=== PATIENT | female | born 1970 | race Caucasian/White ===

== ENCOUNTER 2022-12-01 11:30 | Outpatient (OUT) | payer OTHER, SELFPAY ==
--- NOTE | 2022-12-01 | XR_ITS ---
The [address] [address] Patient Name: HENRRY MELÉNDEZ MRN: [id number] date: 1970 Sex: F Assigned Patient Location: [facility] Current Patient Location: [facility] Accession/Order Number: [id number] Exam Date: 12/01/2022 11:08 Report Date: 12/01/2022 15:25 At the request of: CHEKO GUNTER Procedure: XR foot LT min 3V EXAM: XR foot LT min 3V HISTORY: Left foot pain COMPARISON: None. TECHNIQUE: 3 views FINDINGS: No radiodense foreign body osseous lesion, fracture, dislocation or subluxation. Age-related changes of the first metatarsophalangeal joint. The remainder of the joint spaces are unremarkable. No visualized effusion. No visualized soft tissue edema. XR/XR foot LT min 3V IMPRESSION: No visualized abnormality Electronically authenticated by: JUAN CARLOS RAO Date: 12/01/2022 15:25
== END 2022-12-01 11:31 | disposition home or self-care (01) ==
LOC: RAD 11:30
PROVIDERS: PCP Family Medicine; Visit Provider Physician Assistant
DX: M79.672 Pain in left foot (principal)
CPT/HCPCS: 73630

== ENCOUNTER 2023-04-20 12:14 | Outpatient (OUT) | payer OTHER, SELFPAY ==
--- NOTE | 2023-04-20 12:27 | US_ITS ---
The [place] [id number] Patient Name: HENRRY MELÉNDEZ MRN: [id number] date: 1970 Sex: F Assigned Patient Location: [place] Current Patient Location: [place] Accession/Order Number: [id number] Exam Date: 04/20/2023 12:30 Report Date: 04/20/2023 14:00 At the request of: CARRIE TALBOT Procedure: US venous doppler LE LT EXAMINATION: US venous doppler LE LT HISTORY: m79.605; pain in left leg COMPARISON: No relevant comparison available. FINDINGS: REGION: Left lower extremity THROMBI: None. COMPRESSIBILITY: Normal compressibility. FLOW: Normal waveform and antegrade flow between 5 and 20 cm/s. OTHER: None. US/US venous doppler LE LT IMPRESSION: 1. No deep vein thrombus within the left lower extremity. Electronically authenticated by: VLADIMIR BRAND Date: 04/20/2023 14:00
--- NOTE | 2023-04-20 12:56 | XR_ITS ---
[address] [address] Patient Name: HENRRY MELÉNDEZ MRN: [facility]:[id number] date: 1970 Sex: F Assigned Patient Location: Current Patient Location: Accession/Order Number: [id number] Exam Date: 04/20/2023 12:50 Report Date: 04/21/2023 11:28 At the request of: CARRIE TALBOT Procedure: XR lumbar spine 2-3V EXAM: XR lumbar spine 2-3V HISTORY: Low back pain COMPARISON: None. TECHNIQUE: 3 views FINDINGS: Satisfactory alignment. Maintained vertebral body heights and disc spaces. Facet arthropathy of L4-S1. No acute fracture. XR/XR lumbar spine 2-3V IMPRESSION: Facet arthropathy as above. Electronically authenticated by: DELTA DE LEON Date: 04/21/2023 11:28
== END 2023-04-20 12:15 | disposition home or self-care (01) ==
LOC: US 12:16
PROVIDERS: PCP Family Medicine; Visit Provider Family Medicine
DX: M54.10 Radiculopathy, site unspecified (principal); M79.605 Pain in left leg
CPT/HCPCS: 72100; 93971

== ENCOUNTER 2023-04-26 09:50 | Outpatient (OUT) | payer OTHER, SELFPAY ==
[2023-04-26 10:25] LABS: Basophils Percent Auto 0.5 % (0.2-2.0); Eosinophils Absolute Auto 0.1 10^3/uL (0.0-0.7); Eosinophils Percent Auto 1.6 % (0.9-7.0); Hematocrit 43.3 % (36.0-48.0); Hemoglobin 14.2 g/dL (12.0-16.0); Immature Granulocytes Abs Auto 0.02 10^3/uL (0.00-0.03); Immature Granulocytes Pct Auto 0.3 % (0.0-0.5); Lymphocytes Absolute Auto 2.3 10^3/uL (1.2-3.8); Mean Corpuscular HGB Conc 32.8 g/dL (29.9-35.2); Mean Corpuscular Hemoglobin 29.6 pg (26.7-34.0); Mean Corpuscular Volume 90.4 fL (81.0-99.0); Mean Platelet Volume 9.3 fL (9.5-13.5); Monocytes Absolute Auto 0.5 10^3/uL (0.3-0.8); Monocytes Percent Auto 6.4 % (1.7-12.0); Neutrophils Absolute Auto 4.6 10^3/uL (1.4-6.5); Neutrophils Percent Auto 61.2 % (43.0-75.0); Platelet Count 282 10^3/uL (150-450); Red Blood Count 4.79 10^6/uL (4.20-5.40); Red Cell Distribution Width 13.9 % (11.0-15.0); White Blood Count 7.5 10^3/uL (4.0-11.0)
[2023-04-26 10:59] LABS: Anion Gap 11.6; BUN Creatinine Ratio 16.3; Calcium 8.8 mg/dL (8.5-10.1); Carbon Dioxide 27.6 mmol/L (21.0-32.0); Chloride 104 mmol/L (98-107); Estimated GFR (African America >60 (>=60); Estimated GFR (Non-African Ame >60 (>=60); Glucose 91 mg/dL (74-106); Potassium 4.2 mmol/L (3.5-5.1); Sodium 139 mmol/L (136-145); Thyroid Stimulating Hormone 1.503 uIU/mL (0.358-3.740)
== END 2023-04-26 09:51 | disposition home or self-care (01) ==
LOC: LAB 09:50
PROVIDERS: PCP Family Medicine; Visit Provider Family Medicine
DX: I10 Essential (primary) hypertension (principal)
CPT/HCPCS: 36415; 80048; 84443; 85025

== ENCOUNTER 2023-08-11 17:06 | Emergency (ER) | payer OTHER, SELFPAY ==
[2023-08-11 17:13] VITALS: BP 148/88; PULSE 84; RESP 16; TEMP 36.7; O2SAT 97; BMI 42.0
--- OUTSIDE RECORDS SUMMARY | 2023-08-11 17:14 | XMS_ITS | CCD ---
Author Organization [facility] Care Team Providers Care Focused Factory Manager Name Role Phone SHAUNA, DR JUAN CARLOS Mayberry Consulting Unavailable TALBOT, DR SLIME Johnson Primary Care Unavailable TALBOT, DR SLIME Johnson Attending Unavailable TALBOT, DR SLIME Johnson Admitting Unavailable ZIEBER, DR SARKIS Stevens Consulting Unavailable TALBOT, DR SLIME Johnson Consulting Unavailable HORTENCIA, MG Consulting Unavailable HORTENCIA, MG Attending Unavailable HORTENCIA, MG Admitting Unavailable TALBOT, DR SLIME Johnson Primary Care Unavailable TALBOT, DR SLIME Johnson Primary Care Unavailable JANI, CHEKO Attending Unavailable JANI, CHEKO Admitting Unavailable TALBOT, DR SLIME Johnson Primary Care Unavailable TALBOT, DR SLIME Johnson Attending Unavailable TALBOT, DR SLIME Johnson Admitting Unavailable TALBOT, DR SLIME Johnson Primary Care Unavailable JANI, CHEKO Attending Unavailable JANI, CHEKO Admitting Unavailable TALBOT, DR SLIME Johnson Primary Care Unavailable TALBOT, DR SLIME Johnson Attending Unavailable TALBOT, DR SLIME Johnson Admitting Unavailable TALBOT, DR SLIME Johnson Primary Care Unavailable WEST, DR JUAN CARLOS Mayberry Attending Unavailable WEST, DR JUAN CARLOS Mayberry Admtariq Unavailable WEST, DR JUAN CARLOS Mayberry Consulting Unavailable TALBOT, DR SLIME Johnson Primary Care Unavailable WEST, DR JUAN CARLOS Mayberry Attending Unavailable WEST, DR JUAN CARLOS Mayberry Admtariq Unavailable WEST, DR JUAN CARLOS Mayberry Consulting Unavailable TALBOT, DR SLIME Johnson Primary Care Unavailable WEST, DR JUAN CARLOS Mayberry Attending Unavailable WEST, DR JUAN CARLOS Mayberry Admitting Unavailable ZIEBER, DR SARKIS Stevens Consulting Unavailable TALBOT, DR SLIME Johnson Consulting Unavailable TALBOT, DR SLIME Johnson Primary Care Unavailable TALBOT, DR SLIME Johnson Attending Unavailable TALBOT, DR SLIME Johnson Admitting Unavailable ZIEBER, DR SARKIS Stevens Consulting Unavailable TALBOT, DR SLIME Johnson Primary Care Unavailable JANI, CHEKO Attending Unavailable JANI, CHEKO Admitting Unavailable JANI, CHEKO Consulting Unavailable WEST, DR JUAN CARLOS Mayberry Consulting Unavailable TALBOT, DR SLIME Johnson Primary Care Unavailable TALBOT, DR SLIME Johnson Attending Unavailable TALBOT, DR SLIME Johnson Admitting Unavailable ANTIONE, DR SLIME Johnson Consulting Unavailable DIAB, ELY Consulting Unavailable DIAB, ELY Attending Unavailable DIAB, ELY Admitting Unavailable ANTIONE, DR SLIME Johnson Primary Care Unavailable HAY, DR GERONIMO Consulting Unavailable HAY, DR GERONIMO Attending Unavailable HAY, DR GERONIMO Admitting Unavailable ANTIONE, DR SLIME Johnson Primary Care Unavailable POPPY GREEN Consulting Unavailable Slime Talbot Unavailable Slime Talbot Unavailable Unavailable Unavailable Mitch, Dr. Bethea Referring Unavaila kendrick Meyer, Dr. Bethea Attending Unavaila kendrick TALBOT, MD SLIME LOWERY Primary Care MD SLIME Galicia Primary Care Unava illaci Meyer, Dr. Bethea Referring Unavaila kendrick Meyer, Dr. Bethea Attending Unavaila ZOLTAN Blum Attending Unavailable ZOLTAN HENDERSON Referring Unavailable Slime Talbot Attending Unavailable Slime Talbot Admitting Unavailable Allergies Allergy Classification Reported Allergen(s) Allergy Type Date of Onset Reaction(s) Facility (5 sources) Cefuroxime Drug Allergy Unknown [facility] Other (12 sources) Codeine Drug Allergy 05-31-19 Unknown [facility] (5 sources) Pseudoephedrine Drug Allergy Unknown [facility] Other (1 source) cefdinir; Translations: [cefdinir] Drug Allergy Other [place] [id number] DO Work Phone: (6 sources) Ceftin *CEPHALOSPORINS* Propensity to adverse reactions 02-12-[address] [facility] Other (6 sources) Pseudoephedrine HCl *NASAL AGENTS - SYSTEMIC AND T Propensity to adverse reactions 02-12-[address] [facility] Other (1 source) Cephalosporins (Antibiotic) Allergy to substance 05-31-19 [facility] (1 source) Pseudoephedrine HCl *NASAL AGE Allergy to substance 05-31-19 [facility] Medications Current Medications Medication Drug Class(es) Dates Sig (Normalized) Sig (Original) amoxicillin 875 mg / clavulanate 125 mg oral tablet (5 sources) Penicillin-class Antibacterial take 1 tablet by mouth every twelve hours aspirin 81 mg delayed release oral tablet (7 sources) Platelet Aggregation Inhibitor, Nonsteroidal Anti-inflammatory Drug take 1 tablet by mouth every twenty-four hours Aspirin 81 81 MG 1 tablet Orally Once a day Active take 1 tablet by mouth once jessi y Aspirin 81 81 MG 1 tablet Orally Once a day Active azithromycin 250 mg oral tablet (6 sources) Macrolide Antimicrobial Start: 03-28-2023 Azithromycin 250 MG as directed Orally 2 tabs po today, then 1 tab daily x 4 more days for 5 Mar, Active Start: 06-17-2022 Azithromycin 2 50 MG as directed Orally 2 tabs po today, then 1 tab daily x 4 more days for 5 days May, Active ferrous sulfate 325 mg oral tablet (5 sources) take 1 tablet by mouth every twenty-four hours meclizine hydrochloride 12.5 mg oral tablet (5 sources) Antiemetic take 1 tablet by mouth every twelve hours methylPREDNISolone 4 mg oral tablet (10 sources) Corticosteroid Start: 2022 omeprazole 40 mg delayed release oral capsule (6 sources) Proton Pump Inhibitor take 1 capsule by mouth once daily Omeprazole 40 MG 1 capsule 30 minutes before morning meal Orally Once a day for 30 days Active prednisoLONE (1 source) Corticosteroid prednisoLONE Active predniSONE 20 mg oral tablet (2 sources) Start: 2022 take 2 tablets by mouth every twenty-four hours predniSONE 20 MG 2 tablets Orally Once a day for 5 days Feb, Active tiZANidine 4 mg oral capsule (2 sources) Central alpha-2 Adrenergic Agonist take 1 capsule by mouth once daily at bedtime as needed tiZANidine HCl 4 MG 1 capsule as needed Orally qhs prn for 15 days Active Completed/Discontinued Medications Medication Drug Class(es) Dates Sig (Normalized) Sig (Original) amLODIPine 10 mg oral tablet (9 sources) Dihydropyridine Calcium Channel Taryn Start: 06-17-2022 take 1 tablet by mouth once daily amLODIPine Besylate 10 MG Oral Tablet TAKE ONE TABLET BY MOUTH ONCE DAILY Quantity: 30 Refills: 0 Ordered: 18-Jul-2022 DO Start : 17-Jun-2022 Active losartan potassium 50 mg oral tablet (13 sources) Angiotensin 2 Receptor Taryn Start: 06-17-2022 take 1 tablet by mouth once daily Losartan Potassium 50 MG Oral Tablet TAKE ONE TABLET BY MOUTH ONCE DAILY Quantity: 30 Refills: 0 Ordered: 18-Jul-2022 DO Start : 17-Jun-2022 Active 24 hr metoprolol succinate 25 mg extended release oral tablet (8 sources) beta-Adrenergic Taryn Start: 08-11-2022 take 1 tablet by mouth once daily Metoprolol Succinate ER 25 MG Oral Tablet Extended Release 24 Hour TAKE 1 TABLET ONCE DAILY. Quantity: 90 Refills: 3 Ordered: 11-Aug-2022 [place] Meyer MD Start : 11-Aug-2022 Active new start spironolactone 25 mg oral tablet (13 sources) Aldosterone Antagonist Start: 05-14-2022 take 1 tablet by mouth once daily Spironolactone 25 MG Oral Tablet TAKE ONE TABLET BY MOUTH DAILY Quantity: 90 Refills: 0 Ordered: 17-May-2022 DO Start : 14-May-2022 Active Problems Active Problems Problem Classification Problem Date Documented Da te Episodic/Chronic Abdominal pain (11 sources) Pain in female pelvis; Translations: [Pelvic and perineal pain] Episodic Cardiac dysrhythmias (3 sources) Palpitations; Translations: [Palpitations] Onset: 3 Episodic Conditions associated with dizziness or vertigo (11 sources) Benign paroxysmal positional vertigo; Translations: [Benign paroxysmal vertigo, bilateral] Episodic Coronary atherosclerosis and other heart disease (11 sources) Coronary arteriosclerosis; Translations: [Atherosclerotic heart disease of elem coronary artery without angina pectoris] Chronic Diabetes mellitus without complication (12 sources) Other abnormal glucose; Translations: [Hyperglycemia] Onset: 2 Episodic Esophageal disorders (7 sources) Gastroesophageal reflux disease without esophagitis; Translations: [Gastro-esophageal reflux disease without esophagitis] Chronic Essential hypertension (20 sources) Essential (primary) hypertension; Translations: [Hypertensive disorder] Onset: 3 Chronic Genitourinary symptoms and ill-defined conditions (2 sources) Dysuria; Translations: [Dysuria] Episodic Osteoarthritis (1 source) Primary osteoarthritis, left ankle and foot; Translations: [PRIMARY OSTEOARTHRITIS LT ANK FOOT] Onset: 2 Chronic Other aftercare (1 source) Other continuous churn buttermaker (current) drug therapy; Translations: [OTH CLINICAL RESEARCH ASSISTANT CURRENT DRUG THERAPY] Onset: 3 Episodic Other connective tissue disease (1 source) Peroneal tendinitis, left leg; Translations: [PERONEAL TENDINITIS LEFT LEG] Onset: 3 Episodic Other connective tissue disease (1 source) Pain in left foot; Translations: [PAIN IN LEFT FOOT] Onset: 2 Episodic Other connective tissue disease (11 sources) Pain in left foot; Translations: [Pain in left foot] Episodic Other connective tissue disease (11 sources) Peroneal tendinitis; Translations: [Peroneal tendinitis, left leg] Episodic Other connective tissue disease (11 sources) Pain of left lower leg; Translations: [Pain in left lower leg] Episodic Other connective tissue disease (6 sources) Dupuytren contracture of right palm; Translations: [Palmar fascial fibromatosis [Dupuytren]] Episodic Other connective tissue disease (1 source) Other muscle spasm Episodic Other connective tissue disease (1 source) Palmar fascial fibromatosis [Dupuytren] Episodic Other connective tissue disease (1 source) Pain in left leg Episodic Other female genital disorders (11 sources) Abnormal uterine bleeding; Translations: [Abnormal uterine and vaginal bleeding, unspecified] Chronic Other lower respiratory disease (3 sources) Shortness of breath; Translations: [SHORTNESS OF BREATH] Onset: 3 Episodic Other lower respiratory disease (2 sources) Dyspnea; Translations: [Other respiratory abnormalities] Episodic Other non-traumatic joint disorders (4 sources) Other instability, left ankle; Translations: [OTHER INSTABILITY LEFT ANKLE] Onset: 3 Episodic Other non-traumatic joint disorders (4 sources) Pain in left ankle and joints of left foot; Translations: [PAIN IN LEFT ANKLE] Onset: 2 Episodic Other non-traumatic joint disorders (11 sources) Arthralgia of the ankle and/or foot; Translations: [Pain in left ankle and joints of left foot] Episodic Other non-traumatic joint disorders (11 sources) Ankle instability; Translations: [Other instability, left ankle] Episodic Other non-traumatic joint disorders (11 sources) Arthralgia of the upper arm; Translations: [Pain in left elbow] Episodic Other non-traumatic joint disorders (1 source) Pain in left knee Episodic Other nutritional; endocrine; and metabolic disorders (2 sources) Body mass index 40+ - severely obese; Translations: [Morbid obesity] Chronic Other nutritional; endocrine; and metabolic disorders (11 sources) Abnormal weight gain; Translations: [Abnormal weight gain] Episodic Other upper respiratory infections (13 sources) Acute upper respiratory infection, unspecified; Translations: [Acute maxillary sinusitis] Onset: 2 Episodic Ovarian cyst (11 sources) Cyst of left ovary; Translations: [Unspecified ovarian cyst, left side] Episodic Phlebitis; thrombophlebitis and thromboembolism (15 sources) Phlebitis and thrombophlebitis of superficial vessels of right lower extremity; Translations: [H/O: Deep vein thrombosis] Onset: 2 Episodic Residual codes; unclassified (11 sources) Obstructive sleep apnea syndrome; Translations: [Obstructive sleep apnea (adult) (pediatric)] Chronic Spondylosis; intervertebral disc disorders; other back problems (20 sources) Cervicalgia; Translations: [Radiculopathy, cervical region] Onset: 2 Episodic Sprains and strains (11 sources) Sprain of left ankle; Translations: [Sprain of other ligament of left ankle, initial encounter] Episodic Substance-related disorders (3 sources) Nicotine dependence, cigarettes, uncomplicated; Translations: [Smoker] Onset: 3 Chronic Comment on above: 5-10 cigarettes jessi y; Unclassified (1 source) CONTACT W/AND (SUSP) EXPOS COVID-19; Translations: [CONTACT W/AND (SUSP) EXPOS COVID-19] Onset: 3 Unclassified (3 sources) LOW BACK PAIN, UNSPECIFIED; Translations: [LOW BACK PAIN, UNSPECIFIED] Onset: 2 Unclassified (2 sources) COUGH, UNSPECIFIED; Translations: [COUGH, UNSPECIFIED] Onset: 2 Past or Other Problems Problem Classification Problem Date Documented Da te Episodic/Chronic Other non-traumatic joint disorders (1 source) Pain in left elbow; Translations: [PAIN IN LEFT ELBOW] Onset: 10-11-2021 Episodic Other nutritional; endocrine; and metabolic disorders (1 source) Abnormal weight gain; Translations: [ABNORMAL WEIGHT GAIN] Onset: 10-06-2021 Episodic Unclassified (1 source) LOW BACK PAIN, UNSPECIFIED; Translations: [LOW BACK PAIN, UNSPECIFIED] Onset: 02-18-2022 Unclassified (1 source) COUGH, UNSPECIFIED; Translations: [COUGH, UNSPECIFIED] Onset: 08-28-2021 Varicose veins of lower extremity (4 sources) Varicose veins of bilateral lower extremities with pain; Translations: [VARICOSE VNS JEWELS LOW EXTREM W/PAIN] Onset: 07-14-2021 Episodic Results Test Name Value Interpretation Reference Range Facility Urine Cultureon 08-09-2023 Bacteria identified Cx Nom (U) 20,000 colonies/ml mixed bacterial skin contaminants 1 Day PERFORMED BY: [place] [address] PATHOLOGIST ROVING WINDER ISABELA MUÑOZ M.D. Normal [facility] Comment on above: Performed By: #### C UU #### [address] Laboratory - Chemistry and C hemistry - challengeon 08-03-2023 Bilirubin Ql (U) Negative [facility] Glucose (U) [Mass/Vol] Negative [facility] Ketones Ql (U) Negative [facility] pH (U) 5.0 [pH] [facility] Specific gravity (U) [Rel density] 1.015 [facility] Urobilinogen (U) [Mass/Vol] 0.2 mg/dL [facility] Laboratory - Specimen inform ationon 08-03-2023 Appearance (U) clear [facility] Color (U) yellow [facility] Laboratory - Urinalysison Leukocyte esterase Test strip Ql (U) Negative [facility] Nitrite Ql (U) Negative [facility] Protein Ql (U) + [facility] No Panel Informationon 08-02 Urine Occult Blood + [facility] XR KNEE 4+ VIEWS LEFTon XR KNEE 4+ VIEWS LEFT EXAMINATION/TECHNIQUE: XR KNEE 4+ VIEWS LEFT HISTORY: Left knee pain. Fall in March. COMPARISON: None RESULT: No acute fracture. No dislocation. No distinct joint effusion radiographically. Small osteophytes with grossly maintained joint spaces. Varicose vessels. IMPRESSION: No acute osseous findings. ELECTRONICALLY SIGNED BY: Quan Desai MD Normal Not Available Office Visit (Cardiology)on 12-02-2022 Follow-up visit Diagnoses/Problems Assessed Palpitation (785.1) (R00.2) Dyspnea (786.09) (R06.00) Current smoker (305.1) (F17.200) 5-10 cigarettes daily Essential hypertension, benign (401.1) (I10) Morbid obesity with BMI of 40.0-44.9, adult (278.01,V85.41) (E66.01,Z68.41) Orders Morbid obesity with BMI of 40.0-44.9, adult Healthy Weight Tips; Status:Complete - Retrospective Authorization; Done: [id number] Some eating tips that can help you lose weight.; Status:Complete - Retrospective Authorization; Done: [id number] SocHx: Current smoker You need to quit smoking.; Status:Complete - Retrospective Authorization; Done: [id number] Tobacco Use Screening; Status:Complete; Done: [id number] You need to stop smoking. Though it is not easy, more than half of all adult smokers have quit. We encourage you to write down all the reasons you should quit smoking and set a quit date for yourself. Ask us how we can help. You may also call 5-981-DXHCFLS EnergyNOW for free resources and assistance.; Status:Complete - Retrospective Authorization; Done: [id number] Patient Instructions Please bring all medicines, vitamins, and herbal supplements with you when you come to the office. Prescriptions will not be filled unless you are compliant with your follow up appointments or have a follow up appointment scheduled as per instruction of your physician. Refills should be requested at the time of your visit. Take Amlodipine in the evening or at bedtime take metoprolol in the morning Follow up in 4 months Chief Complaint HENRRY MELÉNDEZ is being seen for a 4 month follow-up of. History of Present Illness Patient is here for follow-up continue management for recent evaluation for palpitation following discontinuation of her beta-taryn, hypertension, obesity. Since last time I saw her she feels her symptoms slightly improved. But continued to experience some palpitation midday. She has been taking her metoprolol during the night. Her recent Holter monitor showed mild sinus tachycardia but no significant tachyarrhythmia. Echocardiogram was normal Assessment 1. Symptoms of palpitation there is mild sinus tachycardia due to withdrawal of beta-taryn seem to be improving with reinstituting a smaller dose of beta-taryn 2. Hypertension seem to be better controlled 3. Obesity 4. Mild shortness of breath I suspect due to smoking patient denies chest pain 5. Tobacco use Plan 1. I reviewed with the patient results echocardiogram and Holter monitor 2. Recommended for her to take her metoprolol in the morning and amlodipine in the evening and I advised her if she continues to be symptomatic to let me know and we will consider increasing her metoprolol 3. I advised the patient to continue to monitor her blood pressure and heart rate 4. I counseled the patient regarding nonpharmacologic approach for hypertension including low-salt diet, exercise, losing weight?diet 5. Follow-up in 4 months Surgical History Problems History of Cholecystectomy History of Complete colonoscopy over 10 years ago History of Varicose vein ligation Current Meds Medication NameInstruction amLODIPine Besylate 10 MG Oral TabletTAKE ONE TABLET BY MOUTH ONCE DAILY Losartan Potassium 50 MG Oral TabletTAKE ONE TABLET BY MOUTH ONCE DAILY Metoprolol Succinate ER 25 MG Oral Tablet Extended Release 24 HourTAKE 1 TABLET ONCE DAILY. Spironolactone 25 MG Oral TabletTAKE ONE TABLET BY MOUTH DAILY Allergies Medication cefdinir Adverse Reaction; Recorded By: Dana Huertas; 12/02/2022 9:55:09 AM Social History Problems Caffeine use (V49.89) (Z78.9) pop all day Current smoker (305.1) (F17.200) 5-10 cigarettes daily No alcohol use No illicit drug use Review of Systems Constitutional: not feeling tired. Cardiovascular: palpitations, but no intermittent leg claudication and as noted in HPI. Respiratory: no cough and no shortness of breath. Gastrointestinal: no change in bowel habits and no blood in stools. Integumentary: no skin rashes. Neurological: no seizures and no frequent falls. All other systems have been reviewed and are negative for complaint. Vitals Vital Signs Recorded: [id number] 09:55AM Heart Rate60, L Radial [id number], LUE, Sitting [id number], LUE, Sitting Height5 ft 4 in Geigfl664 lb BMI Ebqfvntdgz57.2 kg/m2 BSA Calculated2.11 Tobacco Usea) Yes Patient encouraged to stop using tobacco productsYes Falls Screening (Age 18+)c) Not medically indicated Physical Exam Constitutional: alert and in no acute distress. Neck: neck is supple, symmetric, trachea midline, no masses and no thyromegaly . Pulmonary: no increased work of breathing or signs of respiratory distress and lungs clear to auscultation. Cardiovascular: carotid pulses 2+ bilaterally with no bruit , JVP was normal, no thrills , regular rhythm, normal S1 and S2, no murmurs , pedal pulses 2+ bilaterally and no edema . Abdomen: abdomen non-tender, no ma (more content not included)... Normal [employer] Tobacco Screening.on 023 Fall risk assessment c) Not medically indicated [employer] [address] DO Work Phone: Tobacco use status [facility] a) Yes [facility] [address] DO Work Phone: Tobacco Screening. Yes [facility] [facility] DO Work Phone: Office Visit (Cardiology)on 08-11-2022 Follow-up visit Diagnoses/Problems Assessed Essential hypertension, benign (401.1) (I10) Palpitation (785.1) (R00.2) Dyspnea (786.09) (R06.00) Morbid obesity with BMI of 40.0-44.9, adult (278.01,V85.41) (E66.01,Z68.41) Current smoker (305.1) (F17.200) Orders Essential hypertension, benign, Palpitation Start: Metoprolol Succinate ER 25 MG Oral Tablet Extended Release 24 Hour; TAKE 1 TABLET ONCE DAILY Morbid obesity with BMI of 40.0-44.9, adult Healthy Weight Tips; Status:Complete - Retrospective Authorization; Done: 11Aug2022 Some eating tips that can help you lose weight.; Status:Complete - Retrospective Authorization; Done: 11Aug2022 Palpitation IO EKG Electrocardiogram- 12 Lead; Status:Complete; Done: 11Aug2022 SocHx: Current smoker You need to quit smoking.; Status:Complete - Retrospective Authorization; Done: 11Aug2022 You need to stop smoking. Though it is not easy, more than half of all adult smokers have quit. We encourage you to write down all the reasons you should quit smoking and set a quit date for yourself. Ask us how we can help. You may also call 6-844-TGSC-NOW for free resources and assistance.; Status:Complete - Retrospective Authorization; Done: 11Aug2022 Tobacco Use Screening; Status:Complete; Done: 11Aug2022 Patient Instructions Please bring all medicines, vitamins, and herbal supplements with you when you come to the office. Prescriptions will not be filled unless you are compliant with your follow up appointments or have a follow up appointment scheduled as per instruction of your physician. Refills should be requested at the time of your visit. Follow up in 4 months Educated to avoid sodium/ salt. Educated on DASH diet. Chief Complaint HENRRY MELÉNDEZ is being seen for a consultation for blood pressure issues. History of Present Illness Patient is here for cardiovascular evaluation for management of symptoms of palpitation, hypertension and shortness of breath. Patient is a 52-year-old who reports she has been on metoprolol for many years because of palpitation. She does not recall who gave it to her or why. But recently she developed hypertension and her blood pressure was significantly elevated resulted in few ER visit. In addition she was noted to be bradycardic. Her medication was adjusted her original dose of metoprolol 50 mg twice daily was switched to a combination of amlodipine and losartan. Blood pressure seem to improve. Heart rate seem to have improved. Patient however did indicate that her palpitation has worsened. She did have a recent echocardiogram that showed normal LV systolic function. Recent laboratory data noted and showed mild hypokalemia and a Holter monitor was done but the result is not available to me. The patient is a smoker. She denies any chest pain or lightheadedness. Assessment 1. Symptoms of palpitation likely to suggest ectopic beats. Significantly worse since beta-blockers discontinued 2. Hypertension seem to be better controlled 3. Obesity 4. Mild shortness of breath I suspect due to smoking patient denies chest pain 5. Tobacco use Plan 1. I reviewed with the patient results of her recent lab work 2. We will try to retrieve her recent Holter monitor from [place] 3. I suggested a trial of a smaller dose of metoprolol ER 25 mg daily which I hope will result in improvement of her palpitation and blood pressure without causing excessive bradycardia 4. I advised the patient to continue to monitor her blood pressure and heart rate 5. I counseled the patient regarding nonpharmacologic approach for hypertension including low-salt diet, exercise, losing weight?diet 6. Follow-up in 4 months Surgical History Problems History of Cholecystectomy Current Meds Medication NameInstruction amLODIPine Besylate 10 MG Oral TabletTAKE ONE TABLET BY MOUTH ONCE DAILY Losartan Potassium 50 MG Oral TabletTAKE ONE TABLET BY MOUTH ONCE DAILY Spironolactone 25 MG Oral TabletTAKE ONE TABLET BY MOUTH DAILY Allergies Medication No Known Drug Allergies Recorded By: Paul Ralph; 08/11/2022 1:20:35 PM Social History Problems Caffeine use (V49.89) (Z78.9) Current smoker (305.1) (F17.200) No alcohol use No illicit drug use Review of Systems Cardiovascular: shortness of breath and palpitations. Vitals Vital Signs Printed in Appendix #1 below. EKG done in office today Physical Exam Constitutional: alert and in no acute distress. Eyes: no erythema, swelling or discharge from the eye . Neck: neck is supple, symmetric, trachea midline, no masses and no thyromegaly . Pulmonary: no increased work of breathing or signs of respiratory distress and lungs clear to auscultation. Cardiovascular: carotid pulses 2+ bilaterally with no bruit , JVP was normal, no thrills , regular rhythm, normal S1 and S2, no murmurs , pedal pulses 2+ bilaterally and no edema . Abdomen: abdomen non-tender, no masses and no hepatomegaly . Skin: skin warm and dry, (more content not included)... Normal [employer] PHQ-2 VITALSon 08-11-2022 Adult depression screening assessment No [facility] 250 DO Work Phone: Tobacco Screening.on 023 Tobacco use status CPHS a) Yes [facility] 250 DO Work Phone: Tobacco Screening. Yes [facility] 250 DO Work Phone: ECHOCARDIO M/2D COMPLETEon 0 06-27-2022 ECHOCARDIO M/2D COMPLETE Patient: HENRRY MELÉNDEZ Exam Date: 06/27/2022 : 1970 Gender:F Ordering : DR SLIME TALBOT M.D. Admission #: [id number] Family : Order #: [id number] CLICK HERE TO VIEW EXAM ECHOCARDIOGRAM REPORT PROCEDURE: CARDIO PULMONARY ECHOCARDIO M/2D COMP INDICATIONS: palpitations, uncontrolled hypertension, smoker COMPARISON: None. DESCRIPTION: COMPLETE ECHOCARDIOGRAM Real-time transthoracic echocardiography with 2D, M-mode, spectral and color flow Doppler performed. QUALITY: Technical quality was fair. 64 230# BP 114 LEFT VENTRICLE: Normal chamber size. Mild concentric left ventricular hypertrophy. Normal systolic function. LV EF: Normal left ventricular ejection fraction, (>55%). DIASTOLIC: Normal diastolic function. ATRIAL SEPTUM: Visually appears intact. LEFT ATRIUM: Normal chamber size. RIGHT ATRIUM: Normal chamber size. RIGHT VENTRICLE: Normal chamber size. Normal right ventricular systolic function. TRICUSPID VALVE: Normal mobility and thickness. No stenosis with no regurgitation. MITRAL VALVE: Normal mobility and thickness. No evidence of mitral valve stenosis. There is no mitral annular calcification. No mitral regurgitation. AORTIC VALVE: Normal trileaflet appearance. No visible sclerosis. Normal leaflet mobility. No evidence of aortic valve stenosis. No aortic regurgitation. AORTIC ROOT: Normal diameter and appearance. PULMONIC VALVE: Normal thickness and mobility. No stenosis. No regurgitation. PERICARDIUM: No evidence of pericardial effusion. IVC: IVC is normal in size, does not collapse. PLEURA: CONCLUSION: 1. Mild concentric left ventricular hypertrophy with normal systolic function. LVEF is 55 to 60%. 2. Normal right ventricular size and systolic function. 3. No significant valvular dysfunction. 4. No pericardial effusion. 5. Technically difficult study with limited sound transmission. Adult Echocardiography Procedure Report Left Ventricle LVEDD (3.7 - 5.6 cm): 4.02 cm LVESD (2.2 - 4.0 cm): 2.86 cm LVIVS thickness (0.6 - 1.2 cm): 1.18 cm LVPW thickness (0.5 - 1.0 cm): 1.11 cm e': 0.09 m/s E - e': 5.35 LVOT Max Gradient: 3.80 mm[Hg] Peak Velocity (LVOT): 0.97 m/s LVOT Diameter 2.26 cm Left Ventricular Ejection Fraction: 55-60 % Left Atrium LA Volume Index (2D A2C): 32.55 ml, 32.55 ml Left Atrium Systolic Dimension: 3.51 cm Mitral Valve MV E to A Ratio: 0.93, 0.94 Mitral Valve A-Wave Peak Velocity: 0.49 m/s, 0.57 m/s Mitral Valve E-Wave Peak Velocity: 0.45 m/s, 0.53 m/s Right Ventricle Aorta AO Root Diam: 3.42 cm Aortic Valve AoV Area (Peak Jackson): 3.16 cm2, 3.16 cm2 Peak Velocity(Antegrade Flow): 1.23 m/s Peak Gradient(Antegrade Flow): 6.08 mm[Hg] Tricuspid Valve Pulmonic Valve Peak Velocity: 0.88 m/s, 0.93 m/s Peak Gradient: 3.09 mm[Hg], 3.44 mm[Hg] Right Atrium Right Atrium Systolic Pressure: 23.07 ml, 23.07 ml Dictated by: Tod Horton M.D. on 06/28/2022 at 19:26 Approved by: Tod Horton M.D. on 06/28/2022 at 19:30 Normal [facility] BNPon 06-10-2022 Natriuretic peptide B (Bld) [Mass/Vol] 384.0 pg/mL Normal <=900.0 [facility] Comment on above: Performed By: #### B OCEAN FREIGHT MANAGER, BMP, HSTROPN ####[facility] Crtcust[address] [place], [place] [address]DrMiranda Saha CBC AUTO DIFFon 06-10-2022 BASO # 0.0 103/ul Normal 0.0-0.1 [facility] Comment on above: Performed By: #### C BC ####[facility] Bmcjllijwx[address] [place], [place] [address]DrMiranda Saha Basophils/100 WBC (Bld) 0.5 % Normal 0.2-2.0 [facility] Comment on above: Performed By: #### C BC ####[facility] Ctjzhftxuc[address] [place], [place] [address]DrMiranda Saha EO # 0.1 103/ul Normal 0.0-0.7 [facility] Comment on above: Performed By: #### C BC ####[facility] Dsjmtxcndc[address] [place], [place] [address]Dr. Alis Saha Eosinophils/100 WBC (Bld) 1.6 % Normal 0.9-7.0 [facility] Comment on above: Performed By: #### C BC ####[facility] Viggntplpv[address] [place], [place] [address]Dr. Alis Saha Erythrocyte distribution width (RBC) [Ratio] 15.9 % Critically high 11.0-15.0 [facility] Comment on above: Performed By: #### C BC ####[facility] Npbsn[address]bi[address] [place], [place] [address]Dr. Alis Saha Hematocrit (Bld) [Volume fraction] 37.1 % Normal 36.0-48.0 [facility] Comment on above: Performed By: #### C BC ####[facility] Ebhwjjxdsd[address] [place], [place] [address]Dr. Alis Saha Hemoglobin (Bld) [Mass/Vol] 12.2 g/dL Normal 12.0-16.0 [facility] Comment on above: Performed By: #### C BC ####[facility] Rvaxnniiyh[address] [place], [place] [address]Dr. Alis Saha IG # 0.02 10e3/ul Normal 0.00-0.03 [facility] Comment on above: Performed By: #### C BC ####[facility] Boswvbvytq[address] [place], [place] [address]Dr. Alis Saha IG % 0.2 % Normal 0.0-0.5 [facility] Comment on above: Performed By: #### C BC ####[facility] Znmk[address]os[address] [place], [place] [address]Dr. Alis Saha LYMPH # 3.2 103/ul Normal 1.2-3.8 [facility] Comment on above: Performed By: #### C BC ####[facility] Vwhwokgfrd[address] [place], [place] [address]Dr. Alis Saha Lymphocytes/100 WBC (Bld) 37.3 % Normal 20.5-60.0 [facility] Comment on above: Performed By: #### C BC ####[facility] Umquthv[address] [place], [place] [address]Dr. Alis Saha MANUAL DIFF REQ NO Normal [facility] Comment on above: Performed By: #### C BC ####[facility] [address] [place] [address]Dr. Alis Saha MCH (RBC) [Entitic mass] 29.8 pg Normal 26.7-34.0 [facility] Comment on above: Performed By: #### C BC ####[facility] [address] [place] [address]Dr. Alis Saha MCHC (RBC) [Mass/Vol] 32.9 g/dL Normal 29.9-35.2 [facility] Comment on above: Performed By: #### C BC ####[facility] Twakauestb[address] [place], [place] [address]Dr. Alis Saha MCV (RBC) [Entitic vol] 90.5 fL Normal 81.0-99.0 [facility] Comment on above: Performed By: #### C BC ####[facility] Whyzvjef[address] [place], [place] [address]Dr. Alis Saha MONO # 0.4 103/ul Normal 0.3-0.8 [facility] Comment on above: Performed By: #### C BC ####[facility] X[address]frc[address] [place], [place] [address]Dr. Alis Saha Monocytes/100 WBC (Bld) 4.6 % Normal 1.7-12.0 [facility] Comment on above: Performed By: #### C BC ####[facility] Zucqnakgok[address] [place], [place] [address]Dr. Alis Saha NEUT # 4.8 103/ul Normal 1.4-6.5 [facility] Comment on above: Performed By: #### C BC ####[facility] Sbfbtbirog[address] [place], [place] [address]Dr. Alis Saha Neutrophils/100 WBC (Bld) 55.8 % Normal 43.0-75.0 [facility] Comment on above: Performed By: #### C BC ####[facility] V[address]uqwreyb[address] [place], [place] [address]Dr. Alis Saha Platelet mean volume (Bld) [Entitic vol] 9.9 fL Normal 9.5-13.5 [facility] Comment on above: Performed By: #### C BC ####[facility] [address] [place], [place] [address]Zg. Alis Saha PLT 265 103/ul Normal 150-450 [facility] Comment on above: Performed By: #### C BC ####[facility] Tot[address]wekhj[address] [place], [place] [address]Yz. Alis Saha RBC 4.10 106/ul Critically low 4.20-5.40 [facility] Comment on above: Performed By: #### C BC ####[facility] [address]kw[address] [place], [place] [address]Tk. Alis Saha WBC 8.7 103/ul Normal 4.0-11.0 [facility] Comment on above: Performed By: #### C BC ####[facility] [address] [place], [place] [address]Up. Alis Saha Covid-19 PCR (CVDTB)on 05-23 SARS-CoV-2 (COVID-19) RNA AMANDA+probe Ql (Unsp spec) Not detected Normal NOT DETECTED [facility] Comment on above: Result Comment: When diagnostic testing is negative, the possibility of a false negative should be considered in the context of a patient's recent exposures and the presence of clinical signs and symptoms consistent with SARS-CoV-2. This test is not yet approved or cleared by the [place] FDA. When there are no FDA-approved or cleared tests available, and other criteria are met, FDA can make tests available under an emergency access mechanism called an Emergency Use Authorization (EUA). The EUA for this test is supported by the [employer] of Health and Human Service's declaration that circumstances exist to justify the emergency use of in vitro diagnostics for the detection and/or diagnosis of the virus that causes COVID-19. This EUA will remain in effect for the duration of the COVID-19 declaration justifying emergency of IVDs, unless it is terminated or revoked by the FDA (after which the test may no longer be used). Performed By: #### C VDTBH #### [facility] [address] [place] [address] [address] Alis Saha PROF CHEM 8 (BAS METB)on Anion gap [Moles/Vol] 11.7 mmol/L Normal [facility] Comment on above: Performed By: #### B OCEAN FREIGHT MANAGER, BMP, HSTROPN ####[facility] [address] [place] [address]Dr. Alis Saha Calcium [Mass/Vol] 8.8 mg/dL Normal 8.5-10.1 [facility] Comment on above: Performed By: #### B OCEAN FREIGHT MANAGER, BMP, HSTROPN ####[facility] [address] [place] [address]Dr. Alis Saha Chloride [Moles/Vol] 108 mmol/L Critically high 98-107 [facility] Comment on above: Performed By: #### B OCEAN FREIGHT MANAGER, BMP, HSTROPN ####[facility] [address] [place] [address]Dr. Alis Saha CO2 [Moles/Vol] 23.7 mmol/L Normal 21.0-32.0 [facility] Comment on above: Performed By: #### B OCEAN FREIGHT MANAGER, BMP, HSTROPN ####[facility] [address] [place] [address]Dr. Alis Saha Creatinine [Mass/Vol] 0.70 mg/dL Normal 0.55-1.02 [facility] Comment on above: Performed By: #### B OCEAN FREIGHT MANAGER, BMP, HSTROPN ####[facility] [address] [place] [address]Dr. Alis Saha EGFR-AF MALTESE >60 Normal >=60 [facility] Comment on above: Performed By: #### B OCEAN FREIGHT MANAGER, BMP, HSTROPN ####[facility] [address] [place] [address]Dr. Alis Saha EGFR-NON AF MALTESE >60 Normal >=60 [facility] Comment on above: Performed By: #### B OCEAN FREIGHT MANAGER, BMP, HSTROPN ####[facility] [address] [place] [address]Dr. Alis Saha Glucose [Mass/Vol] 119 mg/dL Critically high 74-106 [facility] Comment on above: Performed By: #### B OCEAN FREIGHT MANAGER, BMP, HSTROPN ####[facility] [address] [place] [address]Dr. Alis Saha Potassium [Moles/Vol] 3.4 mmol/L Critically low 3.5-5.1 [facility] Comment on above: Performed By: #### B OCEAN FREIGHT MANAGER, BMP, HSTROPN ####[facility] [address] [place] [address]Dr. Alis Saha Sodium [Moles/Vol] 140 mmol/L Normal 136-145 [facility] Comment on above: Performed By: #### B OCEAN FREIGHT MANAGER, BMP, HSTROPN ####[facility] [address] [place] [address]Dr. Alis Saha Urea nitrogen [Mass/Vol] 14.0 mg/dL Normal 7.0-18.0 [facility] Comment on above: Performed By: #### B OCEAN FREIGHT MANAGER, BMP, HSTROPN ####[facility] [address] [place] [address]Dr. Alis Saha Urea nitrogen/Creatinine [Mass ratio] 20.0 mg/mg Normal [facility] Comment on above: Performed By: #### B OCEAN FREIGHT MANAGER, BMP, HSTROPN ####[facility] [address] [place] [address]Dr. Alis Saha TROPONIN, HIGH SENSITIVITYon 06-10-2022 HSTROP 9.9 pg/mL Normal 4.0-51.3 [facility] Comment on above: Result Comment: CUT- OFF POINTS HAVE BEEN ESTABLISHED BASED ON THE FOURTH UNIVERSAL DEFINITIONS OF MYOCARDIAL INFARCTION. THE UPPER REFERENCE LIMIT (URL) OF TROPONIN, DEFINED THE 99TH PERCENTILE OF cTnI DISTRIBUTION IN A REFERENCE POPULATION, HAS BEEN CONFIRMED THE DECISION THRESHOLD FOR IN DIAGNOSIS. Performed By: #### B OCEAN FREIGHT MANAGER, BMP, HSTROPN ####[facility] [address] [place] [address]Dr. Alis Saha XR CHEST 1 Von 06-10-2022 XR CHEST 1 V EXAMINATION: XR CHES T 1 V, , 06/09/2022 10:09 PM EST INDICATION: SHORTNESS OF BREATH HISTORY: Ordering Provider Reason for Exam: Technologist Note: Additional: COMPARISON: None. TECHNIQUE: Chest x-ray: One view. FINDINGS: This is a limited examination due to obscuration of the bilateral lower chest due to superimposed soft tissues. No definite dense focal consolidation, pneumothorax or significant pleural effusion is seen on this single view of the chest. Heart is normal in size. Bony thorax is unremarkable. IMPRESSION: This is a limited examination due to obscuration of the bilateral lower chest due to superimposed soft tissues. No definite dense focal consolidation, pneumothorax or significant pleural effusion is seen on this single view of the chest. Electronically authenticated by: POPPY GREEN Date: 2022-06-09 23:02 Normal [facility] XR LSPINE MIN 4 VIEWSon 01-20 XR LSPINE MIN 4 VIEWS EXAMINATION: XR LSPINE MIN 4 VIEWS HISTORY: Low back pain COMPARISON: No relevant comparison available. FINDINGS: BONES: 5 mm anterolisthesis of L4 in relation L5. Minimal degenerative spondylosis. Mild facet osteoarthropathy. DISC SPACES: Normal. No significant disc height narrowing, subluxation, or endplate abnormality. PARASPINOUS: Negative. No paraspinous abnormality is seen. OTHER: Mild vascular calcifications IMPRESSION: Mild degenerative changes Electronically authenticated by: JUAN CARLOS VILLATORO Date: 2022-02-02 07:17 Normal [facility] XR CSPINE 2_3 VIEWSon 2021 XR CSPINE 2_3 VIEWS EXAMINATION: XR CSPI NE 2_3 VIEWS HISTORY: Cervical radiculopathy COMPARISON: No relevant comparison available. FINDINGS: BONES: Normal alignment with no acute fracture or spondylolisthesis. Moderate degenerative spondylosis and facet osteoarthropathy C4-C5 and C5-C6 DISC SPACES: Moderate multilevel disc space narrowing C4-C7 PARASPINOUS: Negative. No paraspinous abnormality is seen. OTHER: Negative. IMPRESSION: Moderate degenerative changes Electronically authenticated by: JUAN CARLOS VILLATORO Date: 2021-10-01 07:13 Normal [facility] CBC AUTO DIFFon 09-30-2021 BASO # 0.0 103/ul Normal 0.0-0.1 [facility] Comment on above: Performed By: #### C BC ####[facility] [address] [place] [id number]. Alis Saha Basophils/100 WBC (Bld) 0.4 % Normal 0.2-2.0 [facility] Comment on above: Performed By: #### C BC ####[facility] [address] [place] [address]Dr. Alis Saha EO # 0.1 103/ul Normal 0.0-0.7 [facility] Comment on above: Performed By: #### C BC ####[facility] Jqu[address] [place], [place] [address]Dr. Alis Saha Eosinophils/100 WBC (Bld) 1.6 % Normal 0.9-7.0 [facility] Comment on above: Performed By: #### C BC ####[facility] Cxdwzd[address] [place], [place] [address]Dr. Alis Saha Erythrocyte distribution width (RBC) [Ratio] 15.1 % Critically high 11.0-15.0 [facility] Comment on above: Performed By: #### C BC ####[facility] [address] [place], [place] [address]Dr. Alis Saha Hematocrit (Bld) [Volume fraction] 41.9 % Normal 36.0-48.0 [facility] Comment on above: Performed By: #### C BC ####[facility] [address] [place] [address]Dr. Alis Saha Hemoglobin (Bld) [Mass/Vol] 13.5 g/dL Normal 12.0-16.0 [facility] Comment on above: Performed By: #### C BC ####[facility] [address] [place], [place] [address]Dr. Alis Saha IG # 0.01 10e3/ul Normal 0.00-0.03 [facility] Comment on above: Performed By: #### C BC ####[facility] [address] [place], [place] [address]Dr. Alis Saha IG % 0.1 % Normal 0.0-0.5 [facility] Comment on above: Performed By: #### C BC ####[facility] [address] [place] [address]Dr. Alis Saha LYMPH # 2.3 103/ul Normal 1.2-3.8 [facility] Comment on above: Performed By: #### C BC ####[facility] [address] [place], [place] [address]Zk. Alis Saha Lymphocytes/100 WBC (Bld) 27.9 % Normal 20.5-60.0 [facility] Comment on above: Performed By: #### C BC ####[facility] [address] [place] [address]Dr. Alis Saha MANUAL DIFF REQ NO Normal [facility] Comment on above: Performed By: #### C BC ####[facility] [address] [place] [address]Dr. Alis Yifan MCH (RBC) [Entitic mass] 28.8 pg Normal 26.7-34.0 [facility] Comment on above: Performed By: #### C BC ####[facility] [address] [place] [address]Dr. Alis Saha MCHC (RBC) [Mass/Vol] 32.2 g/dL Normal 29.9-35.2 [facility] Comment on above: Performed By: #### C BC ####[facility] [address] [place] [address]Dr. Alis Saha MCV (RBC) [Entitic vol] 89.3 fL Normal 81.0-99.0 [facility] Comment on above: Performed By: #### C BC ####[facility] [address] [place] [address]Dr. Alis Saha MONO # 0.5 103/ul Normal 0.3-0.8 [facility] Comment on above: Performed By: #### C BC ####[facility] [address] [place] [address]Dr. Alis Yifan Monocytes/100 WBC (Bld) 5.6 % Normal 1.7-12.0 [facility] Comment on above: Performed By: #### C BC ####[facility] [address] [place] [address]Dr. Alis Saha NEUT # 5.3 103/ul Normal 1.4-6.5 [facility] Comment on above: Performed By: #### C BC ####[facility] [address] [place] [address]Dr. Alis Saha Neutrophils/100 WBC (Bld) 64.4 % Normal 43.0-75.0 [facility] Comment on above: Performed By: #### C BC ####[facility] [address] [place] [id number]. Alis Saha Platelet mean volume (Bld) [Entitic vol] 9.5 fL Normal 9.5-13.5 [facility] Comment on above: Performed By: #### C BC ####[facility] [address] [place] [id number]. Alis Saha PLT 316 103/ul Normal 150-450 [facility] Comment on above: Performed By: #### C BC ####[facility] [address] [place] [address]Dr. Alis Saha RBC 4.69 106/ul Normal 4.20-5.40 [facility] Comment on above: Performed By: #### C BC ####[facility] [address] [place] [address]Dr. Alis Saha WBC 8.2 103/ul Normal 4.0-11.0 [facility] Comment on above: Performed By: #### C BC ####[facility] [address] [place] [address]Dr. Alis Saha GLYCOHEMOGLOBIN A1Con 2021 ADA RECOMMENDATION SEE BELOW Normal [facility] Comment on above: Result Comment: ADA RECOMMENDED LIMIT 4.0 - 6.0 ADA THERAPEUTIC TARGET < 7.0 ACTION SUGGESTED > 7.0 Performed By: #### A 1C ####[facility] [address] [place] [address]Dr. Alis Saha Glucose [Mass/Vol] 128 mg/dL Normal [facility] Comment on above: Performed By: #### A 1C ####[facility] [address] [place] [address]Dr. Alis Saha HbA1c (Bld) [Mass fraction] 6.1 % Normal 4.5-6.2 [facility] Comment on above: Performed By: #### A 1C ####[facility] [address] [place] [address]Dr. Alis Saha PROF CHEM 8 (BAS METB)on Anion gap [Moles/Vol] 11.5 mmol/L Normal [facility] Comment on above: Performed By: #### T SH, BMP #### [facility] [address] [address] [address] Alis Saha Calcium [Mass/Vol] 8.7 mg/dL Normal 8.5-10.1 [facility] Comment on above: Performed By: #### T SH, BMP #### [facility] [address] [address] [address] Alis Saha Chloride [Moles/Vol] 104 mmol/L Normal 98-107 [facility] Comment on above: Performed By: #### T SH, BMP #### [facility] [address] [address] [address] Alis Saha CO2 [Moles/Vol] 25.5 mmol/L Normal 21.0-32.0 [facility] Comment on above: Performed By: #### T SH, BMP #### [facility] [address] [address] [address] Alis Saha Creatinine [Mass/Vol] 0.85 mg/dL Normal 0.55-1.02 [facility] Comment on above: Performed By: #### T SH, BMP #### [facility] [address] [place] [address] Dr. Alis Saha EGFR-AF MALTESE >60 Normal >=60 [facility] Comment on above: Performed By: #### T SH, BMP #### [facility] [address] [address] [address] Alis Saha EGFR-NON AF MALTESE >60 Normal >=60 [facility] Comment on above: Performed By: #### T SH, BMP #### [facility] [address] [address] [address] Alis Saha Glucose [Mass/Vol] 101 mg/dL Normal 74-106 [facility] Comment on above: Performed By: #### T SH, BMP #### [facility] [address] [place] [address] Dr. Alis Saha Potassium [Moles/Vol] 4.0 mmol/L Normal 3.5-5.1 [facility] Comment on above: Performed By: #### T SH, BMP #### [facility] [address] [place] [address] Dr. Alis Saha Sodium [Moles/Vol] 137 mmol/L Normal 136-145 [facility] Comment on above: Performed By: #### T SH, BMP #### [facility] [address] [place] [address] Dr. Alis Saha Urea nitrogen [Mass/Vol] 13.0 mg/dL Normal 7.0-18.0 [facility] Comment on above: Performed By: #### T SH, BMP #### [facility] [facility] [address] [place] [address] Dr. Alis Saha Urea nitrogen/Creatinine [Mass ratio] 15.3 mg/mg Normal [facility] Comment on above: Performed By: #### T SH, BMP #### [facility] [address] [place] [address] Dr. Alis Saha TSHon 09-30-2021 TSH 1.548 uIU/mL Normal 0.358-3.740 [facility] Comment on above: Performed By: #### T SH, BMP #### [facility] [address] [place] [address] Dr. Alis Saha TSH RANGE SEE BELOW Normal [facility] Comment on above: Result Comment: <0.3 4 UIU/ml HYPERTHYROID 0.34-5.60 UIU/ml EUTHYROID >5.60 UIU/ml HYPOTHYROID Performed By: #### T SH, BMP #### [facility] [address] [place] [id number] Alis Saha VC CONSULT FOLLOWUPon 2021 VC CONSULT FOLLOWUP Patient: HENRRY MELÉNDEZ Exam Date: 07/19/2021 : 1970 Gender:F Ordering : DR JUAN CARLOS VILLATORO M.D. Admission #: [id number] Family : Order #: [id number] CLICK HERE TO VIEW EXAM RADIOLOGY REPORT PROCEDURE: VEIN CENTER CONSULTATION FOLLOWUP VEIN CENTER - OFFICE VISIT FOLLOW UP COMPARISON: VC CONSULT FOLLOWUP, 06/09/2021. PROGRESS NOTES: The patient reports no problems following intravenous laser ablation of the right great saphenous vein. The patient did not require oral analgesics. The patient has worn her compression stockings. The patient has followed our recommendations to walk 20-30 minutes once or twice per day since the procedure. The patient reports some mild improvement in left leg cramping. Physical exam demonstrates no areas of bruising. No erythema or warmth to suggest cellulitis or thrombophlebitis. No active ulceration Review of the ultrasound performed the same day demonstrates occlusive thrombus extending throughout the treated right great saphenous vein including occlusion of 2 associated incompetent perforating veins. No deep vein thrombus The patient expressed a desire to proceed with treatment of incompetent varicose veins with micro foam chemical ablation. IMPRESSION: 1. Successful ablation of the right great saphenous vein and 2 associated incompetent perforating veins 2. Persistent incompetent varicose vein PLAN: Micro foam chemical ablation Nurse notes, history and physical were reviewed and confirmed, see attached forms. The nurse was present throughout the physical exam and consultation Dictated by: Juan Carlos Villatoro MD on 07/19/2021 at 15:06 Approved by: Juan Carlos Villatoro MD on 07/19/2021 at 15:16 Normal [facility] VC EXT VENOUS RT LIMITEDon 0 07-19-2021 VC EXT VENOUS RT LIMITED Patient: HENRRY MELÉNDEZ Exam Date: 07/19/2021 : 1970 Gender:F Ordering : DR JUAN CARLOS VILLATORO M.D. Admission #: [id number] Family : Order #: [id number] CLICK HERE TO VIEW EXAM RADIOLOGY REPORT PROCEDURE: VEIN CENTER EXTREMITY VENOUS RIGHT LIMITED COMPARISON: None. INDICATIONS: Phlebitis and thrombophlebitis of superficial veins of right lower extremity I80.01 TECHNIQUE: Lower extremity ellis scale and Duplex Doppler evaluation of the deep venous system from the inguinal ligament through the calf veins. FINDINGS: REGION: Right lower extremity. THROMBI: Negative for DVT. Heat induced thrombus in GSV from medial knee to distal calf. Heat induced thrombus in biodiesel engine specialist distal calf 1.4 mm from PTV and proximal calf 1.2 cm from PTV. COMPRESSIBILITY: Noncompressibility corresponding to thrombus FLOW: Absent flow corresponding to thrombus OTHER: Patent varicose vein medial popliteal fossa measures 5.8 mm with 5.5 seconds of reflux. Previously treated left AASV thrombus is now 8.0 mm from SFJ. *Exam performed in accordance with [facility] practice guidelines- Peripheral venous ultrasound, August 15, 2009. CONCLUSION: Post ablation occlusion of the treated great saphenous vein with occlusion of 2 associated incompetent biodiesel engine specialist veins No deep vein thrombus Dictated by: Juan Carlos Villatoro MD on 07/19/2021 at 14:36 Approved by: Juan Carlos Villatoro MD on 07/19/2021 at 14:37 Normal [facility] VC ENDOVENOUS ABL 1ST V RTon 07-14-2021 VC ENDOVENOUS ABL 1ST V RT Patient: HENRRY MELÉNDEZ Exam Date: 07/14/2021 : 1970 Gender:F Ordering : DR JUAN CARLOS VILLATORO M.D. Admission #: [id number] Family : Order #: [id number] CLICK HERE TO VIEW EXAM RADIOLOGY REPORT PROCEDURE: VEIN CENTER ENDOVENOUS ABLATION FIRST VEIN RIGHT COMPARISON: None. INDICATIONS: Pain co-occurrent and due to varicose veins of bilateral legs I83.813 OPERATIVE REPORT: The risks and benefits of the procedure had been previously discussed, and were rediscussed at length. Informed written consent was obtained by and Thomas Lazo assisted. Time out procedure was performed. The right lower extremity was prepared and draped in the usual sterile fashion to allow knee flexion in the sterile field. Duplex ultrasound probe was draped in a sterile cover, sterile transmission gel was used. Venous mapping was performed with the areas of dilation and large tributaries marked. The total length was 27 cm from the entry 3 cm above the medial malleolus to level of the knee joint. The diameter of the greater saphenous vein ranged from 5 mm. A 30 gauge needle and 1% buffered lidocaine was used to anesthetize the entry site. A 4 mm incision was made with a scalpel and the saphenous vein was entered percutaneously under direct ultrasound guidance with a micropuncture set, a single stick was successful in gaining access. A micro-guide wire was inserted and the needle removed. A micro-set including a dilator was inserted over the microwire and the needle and dilator were removed. A 0.018 guide wire was inserted through the micro-set and threaded through the saphenous vein to the saphenofemoral junction. The dilator was removed and an introducer sheath was inserted over the wire until the end of the sheath entered the saphenofemoral junction. The dilator and wire were removed and the 600 micron fiber was introduced and placed and positioned so that it extended beyond the sheath and was 3 cm peripheral to the saphenofemoral femoral junction. Final position of the fiber was determined by ultrasound guidance and duplex imaging. Tumescent anesthetic was delivered by ultrasound guidance. One hundred seventy-five cc of fluid was delivered along the entire course of the saphenous vein. The solution consisted of 500 cc of normal saline with 20mL of 1% lidocaine and 10 mL of sodium bicarbonate. A final positioning check was made. The energy source was turned on by means of the foot pedal and the fiber and sheath were withdrawn. The total number of Joules delivered was 1324. The laser was active for 166 seconds under continuous pulse, average laser use of 8 J. Laser start time 2:41 p.m. July 14, 2021. Laser stop time 2:44 p.m. July 14, 2021. A duplex ultrasound revealed compressibility and flow at the saphenofemoral junction immediately after the procedure. Hemostasis at the access site was achieved. The skin incision of the saphenous vein was closed with a 4 x 4. A compression stocking was applied. Postop instructions were given. A follow up appointment was recommended and scheduled. The patient tolerated the procedure well and was discharged in good condition. CONCLUSION: 1. Technically successful endovenous laser ablation of the right great saphenous vein. Dictated by: Sarkis Palacios M.D. on 07/14/2021 at 14:47 Approved by: Sarkis Palacios M.D. on 07/14/2021 at 14:50 Normal [facility] Vital Signs Date Time Vital Sign Value Performing Clinician Facility 05-31-2023 10:15-0500 Body height 163.83 cm Slime Talbot Other [facility] 05-31-2023 10:15-0500 Body mass index (BMI) [Ratio] 42.89 kg/m2 Slime Talbot Other [facility] Other 05-31-2023 10:15-0500 Body weight 115.12 kg Slime Talbot Other [facility] 05-31-2023 10:15-0500 Diastolic blood pressure 83 mm[Hg] Slime Talbot Other [facility] 05-31-2023 10:15-0500 Systolic blood pressure 124 mm[Hg] Slime Talbot Other [facility] 04-20-2023 11:15-0500 Body height 163.83 cm Slime Talbot Other [facility] Other 04-20-2023 11:15-0500 Body mass index (BMI) [Ratio] 42.58 kg/m2 Slime Talbot Other [facility] Other 04-20-2023 11:15-0500 Body weight 114.31 kg Slime Talbot Other [facility] Other 04-20-2023 11:15-0500 Diastolic blood pressure 88 mm[Hg] Slime Talbot Other [facility] Other 04-20-2023 11:15-0500 Systolic blood pressure 138 mm[Hg] Slime Talbot Other [facility] Other 02-21-2023 11:15-0400 Body height 163.83 cm Slime Talbot Other [facility] Other 02-21-2023 11:15-0400 Body mass index (BMI) [Ratio] 41.91 kg/m2 Slime Talbot Other [facility] Other 02-21-2023 11:15-0400 Body weight 112.49 kg Slime Talbot Other [facility] Other 02-21-2023 11:15-0400 Diastolic blood pressure 86 mm[Hg] Slime Talbot Other [facility] Other 02-21-2023 11:15-0400 Systolic blood pressure 130 mm[Hg] Slime Talbot Other [facility] Other 12-02-2022 09:55-0400 Body height 162.56 cm Sliem Talbot Work Phone: [facility] [place] [facility] DO Work Phone: 12-02-2022 09:55-0400 Body mass index (BMI) [Ratio] 41.2 kg/m2 Slime Talbot Work Phone: [facility] [place] [facility] DO Work Phone: 12-02-2022 09:55-0400 Body surface area Derived from formula 2.11 m2 Slime Talbot Work Phone: [facility] [place] [facility] DO Work Phone: 12-02-2022 09:55-0400 Body weight 108.86 kg Slime Talbot Work Phone: [employer] [employer] 250 DO Work Phone: 12-02-2022 09:55-0400 Diastolic blood pressure 62 mm[Hg] Slime Talbot Work Phone: [facility] [employer] 250 DO Work Phone: 12-02-2022 09:55-0400 Heart rate 60 /min Slime Talbot Work Phone: [facility] 250 DO Work Phone: 12-02-2022 09:55-0400 Systolic blood pressure 118 mm[Hg] Slime Talbot Work Phone: [facility] 250 DO Work Phone: 08-11-2022 13:37-0400 Diastolic blood pressure 86 mm[Hg] Slime Talbot Work Phone: [facility] 250 DO Work Phone: 08-11-2022 13:37-0400 Systolic blood pressure 137 mm[Hg] Slime Talbot Work Phone: [facility] 250 DO Work Phone: 08-11-2022 13:26-0400 Heart rate 62 /min Slime Talbot Work Phone: [facility] 250 DO Work Phone: 08-11-2022 13:24-0400 Diastolic blood pressure 88 mm[Hg] Slime Talbot Work Phone: [facility] 250 DO Work Phone: 08-11-2022 13:24-0400 Systolic blood pressure 132 mm[Hg] Slime Talbot Work Phone: [facility] 250 DO Work Phone: 08-11-2022 13:23-0400 Body height 162.56 cm Slime Talbot Work Phone: [facility] 250 DO Work Phone: 08-11-2022 13:23-0400 Body mass index (BMI) [Ratio] 40.85 kg/m2 Slime Talbot Work Phone: [facility] 250 DO Work Phone: 08-11-2022 13:23-0400 Body surface area Derived from formula 2.11 m2 Slime Talbot Work Phone: [facility] 250 DO Work Phone: 08-11-2022 13:23-0400 Body weight 107.96 kg Slime Johnson Antione Work Phone: [facility] 250 DO Work Phone: 08-11-2022 13:23-0400 Diastolic blood pressure 90 mm[Hg] Slime Elizabeth Talbot Work Phone: [facility] 250 DO Work Phone: 08-11-2022 13:23-0400 Systolic blood pressure 140 mm[Hg] Slime Talbot Work Phone: [facility] 250 DO Work Phone: Encounters Encounter Date Encounter Type Care Provider Facility Start: 08-09-2023 End: 08-09-2023 ambulatory Slime Talbot Facility:[facility] Start: 08-03-2023 End: 08-03-2023 ambulatory [facility] Work Phone: Start: 08-03-2023 End: 08-03-2023 Patient encounter procedure [facility] Work Phone: Start: 05-31-2023 End: 05-31-2023 ambulatory [address]ime Talbot Other [facility] Other Start: 05-31-2023 Office outpatient vi sit 15 minutes Slime Talbot [facility] Start: 05-31-2023 End: 05-31-2023 Patient encounter procedure [facility] Phys[facility] Work Phone: Start: 05-25-2023 End: 05-26-2023 ambulatory ZOLTAN HENDERSON Not Available Start: 04-24-2023 End: 04-24-2023 ambulatory Slime Talbot Other [facility] [employer] Other Start: 04-24-2023 Telephone encounter Slmie Talbot [facility] Start: 04-20-2023 End: 04-20-2023 ambulatory Slime Talbot Other [facility] Other Start: 04-20-2023 Office outpatient vi sit 15 minutes Slime Talbot [facility] Start: 03-28-2023 (Televisit) Televisit Slime Talbot [facility] Start: 03-28-2023 End: 03-28-2023 ambulatory Slime Talbot Other [facility] Other Start: 02-21-2023 End: 02-21-2023 ambulatory Slime Talbot Other [facility] Other Start: 02-21-2023 Office outpatient vi sit 25 minutes Slime Talbot [facility] Start: 12-02-2022 ambulatory MD SLIME TALBOT Facility: Start: 12-02-2022 Office outpatient vi sit 15 minutes Slime Talbot Work Phone: [facility] 250 DO Work Phone: Start: 08-18-2022 End: 08-18-2022 ambulatory Slime Talbot Other [facility] Other Start: 08-18-2022 Telephone encounter Slime Talbot [facility] Start: 08-11-[address] Lake Meyer Facility: Start: 08-11-2022 Office consultation new/estab patient 60 min Slime Talbot Work Phone: [facility] 250 DO Work Phone: Start: 08-05-2022 End: 08-05-2022 ambulatory Slime Talbot Other [facility] Other Start: 08-05-2022 Nursing evaluation o f patient and report Slime Talbot [facility] Start: 07-04-2022 End: 07-04-2022 ambulatory Slime Talbot Other [facility] Other Start: 07-04-2022 Telephone encounter Slime Talbot [facility] Start: 06-27-2022 End: 06-28-[address] SLIME TALBOT Facility:[facility] Start: 06-22-2022 End: 06-22-2022 ambulatory Slime Talbot Other [facility] Other Start: 06-22-2022 Telephone encounter Slime Talbot [facility] Start: 06-14-2022 End: 06-14-2022 ambulatory Slime Talbot Other [facility] Other Start: 06-14-2022 Telephone encounter Slime Talbot [facility] Start: 06-12-2022 End: 06-12-2022 ambulatory ELY SANTOS Facility:[facility] Start: 06-09-2022 End: 06-10-[address] JUANPABLO PASTRANA Facility:[facility] Start: 05-22-2022 End: 05-28-[address] SLIME TALBOT Facility:[facility] Start: 05-10-2022 End: 05-21-[address] SLIME TALBOT Facility:[facility] Start: 05-05-2022 End: 05-06-[address] SARKIS PALACIOS Facility:[facility] Start: 02-18-2022 End: 02-19-[address] SLIME TALBOT Facility:[facility] Start: 02-01-2022 End: 02-02-[address] JUAN CARLOS VILLATORO Facility:[facility] Start: 10-11-2021 End: 11-27-[address] SLIME TALBOT Facility:[facility] Start: 09-30-2021 End: 10-01-[address] JUAN CARLOS VILLATORO Facility:[facility] Start: 08-28-2021 End: 08-28-2021 ambulatory MG BURNETT Facility:[facility] Start: 07-26-[address] SLIME TALBOT Facil ity:[facility] Start: 07-19-2021 End: 07-20-[address] JUAN CARLOS VILLATORO Facility:[facility] Start: 07-14-2021 End: 07-15-[address] JUAN CARLOS VILLATORO Facility:[facility] Procedures Date Procedure Procedure Detail Performing Clinician Cholecystectomy Slime Johnson Hayley wilde Work Phone: Ligation of varicose vein Ma indio Talbot Work Phone: Total colonoscopy Slime mancuso Work Phone: Comment on above: over 10 years ago; Plan of Treatment Date Care Activity Detail Author Start: 12-02-2022 FUV, Provider: Lake Meyer, Status: Pen, Time: 9:40 AM FUV, Provider: Lake Meyer, Status: Pen, Time: 9:40 AM -[facility] 250 DO Work Phone: Payers Date Payer Category Payer Unknown [id number] 1970 Unknown [id number] 2.16.84 [id number] 1970 Unknown [id number] 2.16.84 [id number] 1970 Unknown [id number] 2.16.84 0.1.951285.3.579.2.593 1970 Unknown [id number] 2.16.84 0.1.851367.3.579.2.593 1970 Unknown [id number] 2.16.84 0.1.925240.3.579.2.593 1970 Unknown [id number] 2.16.84 0.1.179952.3.579.2.593 1970 Unknown [id number] 2.16.84 0.1.085501.3.579.2.593 1970 Unknown [id number] 2.16.84 0.1.064954.3.579.2.593 1970 Unknown [id number] 2.16.84 0.1.411324.3.579.2.593 1970 Unknown [id number] 2.16.84 0.1.570570.3.579.2.593 1970 Unknown [id number] 2.16.84 0.1.676704.3.579.2.593 1970 Unknown [id number] 2.16.84 0.1.809933.3.579.2.593 1970 Unknown [id number] 2.16.84 0.1.177429.3.579.2.593 1970 Unknown [id number] 2.16.84 0.1.103385.3.579.2.593 1970 Unknown [id number] 2.16. 840.1.230113.3.579.2.356 1970 Unknown [id number] 2.16. 840.1.096624.3.579.2.356 1970 Unknown [id number] 2.16.840 .1.726140.3.579.2.1259 1970 Unknown [id number] 2.16.840 .1.043233.3.579.2.1259 1959 Unknown [id number] Unknown [employer] Social History Date Type Detail Facility Unknown if ever smoked [facility] Other Sex Assigned At Sex Assign ed At [facility] [facility] Other Caffeine use Caffeine use [facility] 250 DO Work Phone: Comment on above: pop all day; 5-10 cigarettes jessi y; Start: 1970 Sex Assigned At Female F [facility] Clinical Notes 09-30-2021 to 05-31-2023 Note Date & Type Note Facility 05-31-2023 Evaluation note Encounter Date Diagnosis Assessment Notes May, Pain, joint, knee, left (ICD-10 - M25.562) Pt declines PT at this time. Will attempt MRI. She declines Ortho referral at this time as well. MRI order sent to [facility]. work note given for restrictions as she is unable to climb a lot of stairs due to pain. May, Uncontrolled hypertension (ICD-10 - I10) Reviewed labs w pt. No hypokalemia or other electrolyte abnormalities noted in Apr. [facility] Other 12-04-2023 Evaluation note* Encounter Date Diagnosis Assessment Notes Treatment Notes Treatment Clinical Notes Apr, Essential hypertension (ICD-10 - I10) [facility] Other 11-30-2023 Evaluation note* Encounter Date Diagnosis Assessment Notes Treatment Notes Treatment Clinical Notes Mar, Radicular syndrome of left leg (ICD-10 - M54.10) Agrees to imaging to r/o DDD or lumbar fracture. Mar, Leg pain, left (ICD-10 - M79.605) Discussed concern for DVT. US scheduled for today. [facility] Other 11-07-2023 Evaluation note* Encounter Date Diagnosis Assessment Notes Treatment Notes Treatment Clinical Notes Mar, Acute non-recurrent frontal sinusitis (ICD-10 - J01.10) Sinus infections can be triggered by a secondary infection from a viral URI or even seasonal allergies. Take medications as directed. Use saline nasal spray prior to presciption nasal spray. Take medications as directed, and complete all doses of medication even if you start to feel better. Patient advised to follow up with PCP if symptoms persist or worsen. Patient verbalized understanding and agreement with treatment plan. [facility] Other 10-03-2023 Evaluation note* Encounter Date Diagnosis Assessment Notes Treatment Notes Treatment Clinical Notes Feb, Cervical paraspinal muscle spasm (ICD-10 - M62.838) Consider massage treatment. Take prednisone daily and muscle relaxers at bedtime. Feb, Dupuytren's contracture of right hand (ICD-10 - M72.0) Pt agrees to referral to Dr. Branch Feb, GERD without esophagitis (ICD-10 - K21.9) Pt states her symptoms are not adequately controlled w H2 blockers. Advised she limit NSAIDs and added omeprazole [facility] Other 03-30-2023 Evaluation note* Encounter Date Diagnosis Assessment Notes Treatment Notes Treatment Clinical Notes Jul, Uncontrolled hypertension (ICD-10 - I10) [facility] Other 03-17-2023 Evaluation note* Encounter Date Diagnosis Assessment Notes Treatment Notes Treatment Clinical Notes Jul, Dysuria (ICD-10 - R30.0) [facility] Other [id number] NotePROCEDURE: XR ANKLE LT MIN 3 V, XR FOOT LT MIN 3 VIEWS HISTORY: Pain of left ankle joint , acute; swelling, instability COMPARISON: None. FINDINGS: BONES:No fracture, acute abnormality, or significant arthropathy. SOFT TISSUES:No visible soft tissue swelling. EFFUSION:None visible. OTHER: Negative. IMPRESSION: 1. No acute bone abnormality or bone lesion of the left ankle and foot. 2. Minimal degenerative joint disease. Electronically authenticated by: SARKIS PALACIOS Date: 2022-05-06 07:13[facility]12-16-2022 NotePROCEDURE: XR ANKLE LT MIN 3 V, XR FOOT LT MIN 3 VIEWS HISTORY: Pain of left ankle joint , acute; swelling, instability COMPARISON: None. FINDINGS: BONES:No fracture, acute abnormality, or significant arthropathy. SOFT TISSUES:No visible soft tissue swelling. EFFUSION:None visible. OTHER: Negative. IMPRESSION: 1. No acute bone abnormality or bone lesion of the left ankle and foot. 2. Minimal degenerative joint disease. Electronically authenticated by: SARKIS PALACIOS Date: 2022-05-06 07:13[facility]05-12-2022 NotePROCEDURE: XR ELBOW LT MIN 3 VIEWS HISTORY: Pain of left elbow joint , acute; limited range of motion COMPARISON: None. FINDINGS: BONES:No fracture, acute abnormality, or significant arthropathy. SOFT TISSUES:No visible soft tissue swelling. EFFUSION:None visible. OTHER: Negative. IMPRESSION: 1. Normal examination. Electronically authenticated by: SARKIS PALACIOS Date: 2021-09-30 16:50[facility] Narrative - ReportedHENRRY MELÉNDEZ is being seen for a consultation for blood pressure issues.-[facility] 250 DO Work Phone: Evaluation [facility]No [facility] Other Evaluation noteNo assessment information available [facility] Work Phone: History general Narrative - Reported* Type Description Date Medical History Sleep apnea, obstructive Medical History Ovarian cyst, left Medical History Sinusitis, acute, maxillary Medical History Left ankle instability Medical History Peroneal tendonitis, left Medical History Sprain of anterior t alofibular ligament of left ankle, initial encounter Medical History Left ankle pain Medical History Left foot pain Medical History Elevated glucose Medical History Weight gain, abnormal Medical History ASHD (arteriosclerotic heart dis ease) Medical History Left elbow pain Medical History Cervical radiculitis Medical History History of deep vein thrombosis Medical History Abnormal uterine bleeding Medical History Cervical pain Medical History Essential hypertension Medical History Lumbar pain Medical History Benign positional vertigo, bilat eral Medical History Pelvic pain in female Medical History Pain of left lower leg Surgical History VENOUS STRIPPING R LEG LAP CHOL E 2006 Surgical History HYSTEROSCOPY, D/C, DIAGNOSTIC L AP, LYSIS OF ADHESIONS 09/2015 Hospitalization History SEE [employer] Other History of Present illness Narrative* Patient is here for cardiovascular evaluation for management of symptoms of palpitation, hypertension and shortness of breath. Patient is a 52-year-old who reports she has been on metoprolol for manyyears because of palpitation. She does not recall who gave it to her or why. But recently she developed hypertension and her blood pressure was significantly elevated resulted in few ER visit. In addition she was noted to be bradycardic. Her medication was adjusted her original dose of metoprolol 50 mg twice daily was switched to a combination of amlodipine and losartan. Blood pressure seem to improve. Heart rate seem to have improved. Patient however did indicate that her palpitation has worsened. She did have a recent echocardiogram that showed normal LV systolic function. Recent laboratorydata noted and showed mild hypokalemia and a Holter monitor was done but the result is not available to me. The patient is a smoker. She denies any chest pain or lightheadedness. * Assessment * 1. Symptoms of palpitation likely to suggest ectopic beats. Significantly worse since beta-blockersdiscontinued * 2. Hypertension seem to be better controlled * 3. Obesity * 4. Mild shortness of breath I suspect due to smoking patient denies chest pain * 5. Tobacco use * Plan * 1. I reviewed with the patient results of her recent lab work * 2. We will try to retrieve her recent Holter monitor from [place] * 3. I suggested a trial of a smaller dose of metoprolol ER 25 mg daily which I hope will result in improvement of her palpitation and blood pressure without causing excessive bradycardia * 4. I advised the patient to continue to monitor her blood pressure and heart rate * 5. I counseled the patient regarding nonpharmacologic approach for hypertension including low-salt diet, exercise, losing weight diet * 6. Follow-up in 4 months [facility] [employer] DO Work Phone: History of Present illness Narrative* Patient is here for follow-up continue management for recent evaluation for palpitation following discontinuation of her beta-taryn, hypertension, obesity. Since last time I saw her she feels her symptoms slightly improved. But continued to experience some palpitation midday. She has been taking her metoprolol during the night. Her recent Holter monitor showed mild sinus tachycardia but no significant tachyarrhythmia. Echocardiogram was normal * Assessment * 1. Symptoms of palpitation there is mild sinus tachycardia due to withdrawal of beta-taryn seem to be improving with reinstituting a smaller dose of beta-taryn * 2. Hypertension seem to be better controlled * 3. Obesity * 4. Mild shortness of breath I suspect due to smoking patient denies chest pain * 5. Tobacco use * Plan * 1. I reviewed with the patient results echocardiogram and Holter monitor * 2. Recommended for her to take her metoprolol in the morning and amlodipine in the evening and I advised her if she continues to be symptomatic to let me know and we will consider increasing her metoprolol * 3. I advised the patient to continue to monitor her blood pressure and heart rate * 4. I counseled the patient regarding nonpharmacologic approach for hypertension including low-salt diet, exercise, losing weight diet * 5. Follow-up in 4 months [facility] [employer] DO Work Phone: Summary Purpose Family History No Family History Records FoundUnknown Family Member Name Dates Details Heart problem: Mother Status:Active Family history of diabetes m ellitus: Mother(V18.0, Z83.3) Status:Active Unknown Family Member Name Dates Details Heart problem: Mother Status:Active Family history of diabetes m ellitus: Mother(V18.0, Z83.3) Status:Active Relationship Condition Age at Onset Recorded Date/T kayley brother Alcohol abuse Unknown father Unknown Hypertension Unknown Not Specified Unknown Heart disease Unknown Diabetes mellitus Unknown Malignant neoplasm Unknown sister Hypothyroidism Unknown Advance Directives No Advanced Directives Records Found Advance Directive Response Recorded Date/ Time Advance Directives No June 22, 2023 9:36am Chief Complaint HENRRY MELÉNDEZ is being seen for a 4 month follow-up of. Reason for Referral Reason B hands aching, cant make a fist w R hand, chronic pain Diagnosis 1 Dupuytren's contract ure of right hand (M72.0) Referral Organization [facility] Referring Provider First Name Slime Referring Provider Last Name Antione Referring Provider Specialty Family Medi cine Referred Organization [facility] Referred Provider Deisi Branch Referred Address [address],[address] Referred Provider Specialty Orthopedic S urgery Referral Priority Routine General Notes Sandhya Fleming 02:27:21 PM >received today, sent P2P Chief Complaint and Reason for Visit Chief Complaint Noms Uc F/U- Knee Pa in UA-Pain, Frequency, Urgency Additional Source Comments INFORMATION SOURCE (unrecogn ized section and content) DATE CREATED AUTHOR 06/30/2022 [facility] DATE CREATED AUTHOR AUTHOR'S ORGANIZ ATION 12/03/2022 [facility] DATE CREATED AUTHOR AUTHOR'S ORGANIZ ATION 12/03/2022 [employer] DATE CREATED AUTHOR AUTHOR'S ORGANIZ ATION 05/29/[address] [facility] EPIC DATE CREATED AUTHOR AUTHOR'S ORGANIZ ATION 08/11/2023 [facility] REASON FOR VISIT (unrecogniz ed section and content) medicationHOLTER MONITORUAec hoprescription refillfall/neck painsinus pressuremessagelumbar xrayPAINFUL LEGNOMS UC f/u- knee pain Care Teams (unrecognized sec tion and content) Team Status: Active Member Role Status Dates Slime Talbot MD Primary Care Provider Active Team Status: Inactive Member Role Status Dates Slime Talbot MD Attending Provider Active St art: May 31, 2023 End: May 31, 2023 Team Status: Inactive Member Role Status Dates Silme Talbot MD Primary Care Provide r, Attending Provider Active Start: August 03, 2023 End: March 14th, 2024 Goals (unrecognized section and content) Goals may be documented in a n alternate section FOR RECORDS PERTAINING TO PATIENTS WHO ARE OR HAVE BEEN ENROLLED IN A CHEMICAL DEPENDENCY/SUBSTANCEABUSE PROGRAM, SOME INFORMATION MAY BE OMITTED. This clinical summary was aggregated from multiple sources. Caution should be exercised in using it in the provision of clinical care. This summary normalizes information from multiple sources, and as a consequence, information in this document may materially change the coding, format and clinical context of patient data. In addition, data may be omitted in some cases. CLINICAL DECISIONS SHOULD BE BASED ON THE PRIMARY CLINICAL RECORDS. [facility] [employer] [facility]. provides no warranty or guarantee of the accuracy or completeness of information in this document.
--- NOTE | 2023-08-11 17:34 | CT_ITS ---
[address] [address] Patient Name: HENRRY MELÉNDEZ MRN: [id number] date: 1970 Sex: F Assigned Patient Location: ER Current Patient Location: ER Accession/Order Number: [id number] Exam Date: 08/11/2023 17:31 Report Date: 08/11/2023 18:21 At the request of: ENRIQUE BARRIOS Procedure: CT abdomen pelvis wo con EXAM: CT abdomen pelvis wo con; [id number] REASON FOR EXAM: Hematuria TECHNIQUE: Helical CT images of the abdomen and pelvis were obtained without IV contrast. Multiplanar reformats were generated at the scanner. Dose reduction technique used: Automated exposure control and/or adjustment of the mA and/or kV according to patient size and/or use of iterative reconstruction technique. COMPARISON: None. FINDINGS: Note: Compared with a contrast-enhanced CT exam, noncontrast images are relatively insensitive for detection of solid organ and vascular abnormalities. Visualized Chest: No pleural effusion or any significant pulmonary findings. Abdomen: Liver: -There are a few well-circumscribed subcentimeter hypodensities in the right lobe of liver are too small to further characterize with any imaging modality though likely represent benign lesions. Gallbladder: Resected. Bile Ducts: No significant biliary ductal dilatation. Pancreas: No ductal dilatation or inflammatory changes. Spleen: No splenomegaly. Adrenals: There are 2 benign adenomas in the left adrenal gland with the largest measuring up to 11 mm. Kidneys: -There are 2 nonobstructing stones in the right kidney with the largest measuring up to 3 mm. -There are 3 nonobstructing stones in the left kidney with the largest measuring up to 3 mm. -No hydronephrosis or ureteric stone. Vascular: No aortic aneurysm. Lymph Nodes: No adenopathy. Abdominal Wall: Trace fat-containing umbilical hernia. Small fat-containing bilateral inguinal hernias. Pelvis: No mass or adenopathy. Bowel/Peritoneal Cavity/Mesentery: -No bowel obstruction or significant ileus. -No acute inflammatory changes. -No free air or free fluid. Musculoskeletal: Moderate bilateral (left greater right) subchondral sclerosis of the sacroiliac joints with mild osteophytosis. Degenerative grade 1 anterolisthesis of L4 on L5. No acute fracture. CT/CT abdomen pelvis wo con IMPRESSION: 1. No acute intra-abdominal abnormality demonstrated. 2. Small nonobstructing bilateral kidney stones. 3. Small fat-containing bilateral inguinal hernias. 4. 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 Correlate for psoriatic or reactive arthritis. 5. There are 2 small benign adenomas in the left adrenal gland. If not already performed recommend biochemical analysis to evaluate for functioning adenomas. Electronically authenticated by: FRANCISCO MARTINEZ Date: 08/11/2023 18:21
--- NOTE | 2023-08-11 17:55 | ED_ITS ---
HPI - General Adult General Chief complaint: Urogenital-Female Stated complaint: Blood in urine Time Seen by Provider: 08/11/23 17:20 Source: patient Mode of arrival: walk-in History of Present Illness HPI narrative: 53-year-old female who presents to the emergency department for continued urinary symptoms. Patient states for the last week she has had urinary frequency and low back pain. She took a urine specimen to her PCP office and was told that there was blood in the specimen. She was placed on 5 days of antibiotics. She states she finished the antibiotics 2 days ago and continues to have the symptoms. She states she called her PCP office and was referred to urologist but they cannot get the patient in for 1 month so the patient was sent to the ER for evaluation. She has had no fevers, vomiting, diarrhea. She has not noticed any blood in her urine. No medications taken prior to arrival. She denies any history of kidney issues or kidney stones. Related Data Previous Rx's ?Medication ?Instructions ?Recorded ketorolac 10 mg tablet 10 mg PO TID PRN pain #10 tabs 08/11/23 methocarbamol 750 mg tablet 750 mg PO TID PRN pain #20 tabs 08/11/23 phenazopyridine 200 mg tablet 200 mg PO Q8H 2 days #6 tabs 08/11/23 (Pyridium) Allergies Allergy/AdvReac Type Severity Reaction Status Date / Time acetaminophen [From NyQuil] Allergy Severe Verified 08/11/23 17:20 ciprofloxacin [From Cipro] Allergy Severe Verified 08/11/23 17:20 dextromethorphan Allergy Severe Verified 08/11/23 17:20 [From NyQuil] doxylamine [From NyQuil] Allergy Severe Verified 08/11/23 17:20 pseudoephedrine [From NyQuil] Allergy Severe Verified 08/11/23 17:20 Review of Systems ROS Constitutional Denies: fever or chills Ears, nose, mouth, and throat Denies: throat pain or nasal congestion Cardiovascular Denies: chest pain Respiratory Denies: shortness of breath or cough Gastrointestinal Denies: nausea or vomiting Musculoskeletal Reports: back pain; Denies: neck pain Integumentary/Breast Denies: rash Neurological Denies: headache Exam Narrative Exam Narrative: Gen.: Awake, alert, in no distress Head: Normocephalic, atraumatic ENT: Moist mucous membranes Respiratory: No respiratory distress Gastrointestinal: Abdomen is soft, nondistended and nontender to palpation Extremities: Moves extremities equally Psych: Normal mood and affect Neuro: No focal neuro deficit Skin: Warm, dry, intact Constitutional Vital Signs, click to edit/add: Last Vital Signs Temp 98.1 F 08/11/23 17:13 Pulse 84 08/11/23 17:13 Resp 16 08/11/23 17:13 BP 148/88 H 08/11/23 17:13 Pulse Ox 97 08/11/23 17:13 O2 Del Method Room Air 08/11/23 17:13 Course Vital Signs Vital signs: Vital Signs Temperature 98.1 F 08/11/23 17:13 Pulse Rate 84 08/11/23 17:13 Respiratory Rate 16 08/11/23 17:13 Blood Pressure 148/88 H 08/11/23 17:13 Pulse Oximetry 97 08/11/23 17:13 Oxygen Delivery Method Room Air 08/11/23 17:13 Temperature 98.1 F 08/11/23 17:13 Pulse Rate 84 08/11/23 17:13 Respiratory Rate 16 08/11/23 17:13 Blood Pressure 148/88 H 08/11/23 17:13 Pulse Oximetry 97 08/11/23 17:13 Oxygen Delivery Method Room Air 08/11/23 17:13 Medical Decision Making MDM Narrative Medical decision making narrative: With stable labs in the ER. No infection noted. She was treated with Toradol for comfort. CT of the abdomen and pelvis with no evidence of obstructing stone. She does have nephrolithiasis, she should be referred to urology. She will be placed on anti-inflammatories for home. Follow-up with PCP and urology and return to the ER if symptoms change or worsen. Pyridium given for urinary symptoms. Medical Records Medical records reviewed: Yes I reviewed the patient's medical records Lab Data Lab results reviewed: Yes I reviewed the patient's lab results Labs: Lab Results 08/11/23 08/11/23 Range/Units 17:41 17:47 WBC 9.0 (4.0-11.0) 10^3/uL RBC 4.97 (4.20-5.40) 10^6/uL Hgb 14.8 (12.0-16.0) g/dL Hct 45.1 (36.0-48.0) % MCV 90.7 (81.0-99.0) fL MCH 29.8 (26.7-34.0) pg MCHC 32.8 (29.9-35.2) g/dL RDW 14.4 (11.0-15.0) % Plt Count 295 (150-450) 10^3/uL MPV 9.9 (9.5-13.5) fL Neut % (Auto) 56.1 (43.0-75.0) % Lymph % (Auto) 35.4 (20.5-60.0) % Wayne % (Auto) 6.5 (1.7-12.0) % Eos % (Auto) 1.2 (0.9-7.0) % Baso % (Auto) 0.6 (0.2-2.0) % Neut # (Auto) 5.0 (1.4-6.5) 10^3/uL Lymph # (Auto) 3.2 (1.2-3.8) 10^3/uL Wayne # (Auto) 0.6 (0.3-0.8) 10^3/uL Eos # (Auto) 0.1 (0.0-0.7) 10^3/uL Baso # (Auto) 0.1 (0.0-0.1) 10^3/uL Abs Immat Gran (auto) 0.02 (0.00-0.03) 10^3/uL Imm/Tot Granulo (auto) 0.2 (0.0-0.5) % Sodium 139 (136-145) mmol/L Potassium 3.9 (3.5-5.1) mmol/L Chloride 105 (98-107) mmol/L Carbon Dioxide 26.9 (21.0-32.0) mmol/L Anion Gap 11.0 BUN 16.0 (7.0-18.0) mg/dL Creatinine 0.84 (0.55-1.02) mg/dL Est GFR ( Amer) >60 (>=60) Est GFR (Non-Af Amer) >60 (>=60) BUN/Creatinine Ratio 19.0 Glucose 73 L (74-106) mg/dL Calcium 9.1 (8.5-10.1) mg/dL Urine Color Yellow (YELLOW) Urine Clarity Clear (CLEAR) Urine pH 5.5 (5.0-9.0) Ur Specific [place] >=1.030 A (1.005-1.025) Urine Protein Negative (NEG/TRACE) mg/dL Urine Glucose (UA) Negative (NEGATIVE) mg/dL Urine Ketones Negative (NEGATIVE) mg/dL Urine Occult Blood Small A (NEGATIVE) Urine Nitrite Negative (NEGATIVE) Urine Bilirubin Negative (NEGATIVE) Urine Urobilinogen 0.2 (0.2-1.0) EU/dL Ur Leukocyte Esterase Negative (NEGATIVE) Urine RBC 2-5 A (0-2) #/HPF Urine WBC 0-2 A (NONE SEEN) #/HPF Ur Squamous Epith Cells Rare (NONE/RARE) #/LPF Urine Crystals None seen (None Seen) #/HPF Urine Bacteria Trace A (NONE SEEN) #/HPF Urine Casts None seen (NONE SEEN) #/LPF Urine Mucus None seen (NONE SEEN) Ur Culture Indicated? No Imaging Data CT scan - abdomen: Attestation: I have reviewed the pertinent imaging results. Radiologist's impression: ITS Impressions Abdomen/Pelvis CT 08/11/23 17:34 IMPRESSION: 1. No acute intra-abdominal abnormality demonstrated. 2. Small nonobstructing bilateral kidney stones. 3. Small fat-containing bilateral inguinal hernias. 4. 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 Correlate for psoriatic or reactive arthritis. 5. There are 2 small benign adenomas in the left adrenal gland. If not already performed recommend biochemical analysis to evaluate for functioning adenomas. Electronically authenticated by: FRANCISCO MARTINEZ Date: 08/11/2023 18:21 Discharge Plan Discharge Stand Alone Forms: Portal Instructions Chief Complaint: Urogenital-Female Clinical Impression: Low back pain, Urinary frequency Patient Disposition: Home, Self-Care Time of Disposition Decision: 18:27 Condition: Good Prescriptions / Home Meds: New ketorolac 10 mg tablet 10 mg PO TID PRN (Reason: pain) Qty: 10 0RF methocarbamol 750 mg tablet 750 mg PO TID PRN (Reason: pain) Qty: 20 0RF phenazopyridine [Pyridium] 200 mg tablet 200 mg PO Q8H 2 Days Qty: 6 0RF Print Language: Angolan Instructions: Acute Low Back Pain (ED), Urinary Urgency and Frequency (DC) Additional Instructions: Follow up with PCP and urology Referrals: Slime Higgins MD [Primary Care Provider] - 1 week Discharge Date/Time: 08/11/23 18:39
[2023-08-11 18:00] LABS: Basophils Absolute Auto 0.1 10^3/uL (0.0-0.1); Basophils Percent Auto 0.6 % (0.2-2.0); Eosinophils Absolute Auto 0.1 10^3/uL (0.0-0.7); Eosinophils Percent Auto 1.2 % (0.9-7.0); Hematocrit 45.1 % (36.0-48.0); Hemoglobin 14.8 g/dL (12.0-16.0); Immature Granulocytes Abs Auto 0.02 10^3/uL (0.00-0.03); Immature Granulocytes Pct Auto 0.2 % (0.0-0.5); Lymphocytes Absolute Auto 3.2 10^3/uL (1.2-3.8); Lymphocytes Percent Auto 35.4 % (20.5-60.0); Mean Corpuscular HGB Conc 32.8 g/dL (29.9-35.2); Mean Corpuscular Hemoglobin 29.8 pg (26.7-34.0); Mean Corpuscular Volume 90.7 fL (81.0-99.0); Mean Platelet Volume 9.9 fL (9.5-13.5); Monocytes Absolute Auto 0.6 10^3/uL (0.3-0.8); Monocytes Percent Auto 6.5 % (1.7-12.0); Neutrophils Percent Auto 56.1 % (43.0-75.0); Platelet Count 295 10^3/uL (150-450); Red Blood Count 4.97 10^6/uL (4.20-5.40); Red Cell Distribution Width 14.4 % (11.0-15.0)
[2023-08-11 18:01] LABS: Bilirubin Urine NEGATIVE (NEGATIVE); Blood Urine SMALL (NEGATIVE); Clarity Urine CLEAR (CLEAR); Color Urine YELLOW (YELLOW); Glucose Urine UA NEGATIVE (NEGATIVE); Ketones Urine NEGATIVE (NEGATIVE); Leukocyte Esterase Urine NEGATIVE (NEGATIVE); Nitrite Urine NEGATIVE (NEGATIVE); Protein Urine NEGATIVE (NEG/TRACE); Specific Gravity Urine >=1.030 (1.005-1.025); Urobilinogen Urine 0.2 EU/dL (0.2-1.0); pH Urine 5.5 (5.0-9.0)
[2023-08-11 18:09] LABS: Calcium 9.1 mg/dL (8.5-10.1); Carbon Dioxide 26.9 mmol/L (21.0-32.0); Chloride 105 mmol/L (98-107); Estimated GFR (African America >60 (>=60); Estimated GFR (Non-African Ame >60 (>=60); Glucose 73 mg/dL (74-106); Potassium 3.9 mmol/L (3.5-5.1); Sodium 139 mmol/L (136-145)
[2023-08-11] MEDS: KETOROLAC TROMETHAMINE 10 MG TABLET PO (18:15)
[2023-08-11 18:20] LABS: Urine Microscopic Indicated YES
[2023-08-11 18:22] LABS: WBC Urine 0-2 #/HPF (NONE SEEN)
[2023-08-11 18:24] LABS: Bacteria Urine TRACE #/HPF (NONE SEEN); Cast Seen? NONE SEEN #/LPF (NONE SEEN); Crystals Seen? None Seen #/HPF (None Seen); Mucus Urine NONE SEEN (NONE SEEN); Squamous Epithelial Cell Urine RARE #/LPF (NONE/RARE)
[2023-08-11 18:26] LABS: Urine Culture Indicated NO
== END 2023-08-11 18:39 | disposition home or self-care (01) ==
PROVIDERS: Physician Assistant; Emergency Provider Emergency Medicine; PCP Family Medicine
DX: M54.50 Low back pain, unspecified (principal); R35.0 Frequency of micturition
CPT/HCPCS: 36415; 74176; 80048; 81001; 85025; 99284

== ENCOUNTER 2023-10-14 08:06 | Outpatient (OUT) | payer OTHER, SELFPAY ==
--- OUTSIDE RECORDS SUMMARY | 2023-10-07 08:06 | XMS_ITS | CCD ---
Author Organization [facility] Care Team Providers Care Box Icer Name Role Phone WEST, DR JUAN CARLOS Mayberry Consulting Unavailable TALBOT, DR SLIME Johnson Primary Care Unavailable TALBOT, DR SLIME Johnson Attending Unavailable TALBOT, DR SLIME Johnson Admitting Unavailable ZIEBROMERO, DR SARKIS Stevens Consulting Unavailable TALBOT, DR [...] Unavailable TALBOT, DR SLIME Johnson Attending Unavailable ANTIONE, DR SLIME Johnson Admitting Unavailable ANTIONE, DR SLIME Johnson Consulting Unavailable DIAB, ELY Consulting Unavailable DIAB, ELY Attending Unavailable DIAB, ELY Admitting Unavailable TALBOT, DR SLIME Johnson Primary Care Unavailable HAY, DR GERONIMO Consulting Unavailable HAY, DR GERONIMO Attending Unavailable HAY, DR GERONIMO Admitting Unavailable TALBOT, DR SLIME Johnson Primary Care Unavailable POPPY GREEN Consulting Unavailable Slime Talbot Unavailable Slime Talbot Unavailable Unavailable Unavailable Mitch, Dr. Bethea Referring Unavaila kendrick Meyer, Dr. Bethea Attending Unavaila kendrick TALBOT, MD SLIME LOWERY Primary Care MD SLIME Galicia Primary Care Harley ilable Mitch, Dr. Bethea Referring Unavaila ble Mitch, Dr. Bethea Attending Unavaila ZOLTAN Blum Attending Unavailable ZOLTAN HENDERSON Referring Unavailable MD Slime Talbot Attending Provider Slime Talbot Admitting Unavailable Slime Talbot Attending Unavailable SLIME TALBOT Primary Care Physician SLIME TALBOT Referring Unavailable Zulema Joya Attending Unavailable Allergies Allergy Classification Reported Allergen(s) Allergy Type Date of Onset Reaction(s) Facility (5 sources) Cefuroxime Drug Allergy Unknown Health Data [facility] Other (14 sources) Codeine Drug Allergy 05-31-19 24 Unknown, [facility] (5 sources) Pseudoephedrine Drug Allergy Unknown Health Data Minder Other (1 source) cefdinir; Translations: [cefdinir] Drug Allergy Other -[place] [address] DO Work Phone: (6 sources) Ceftin *CEPHALOSPORINS* Propensity to adverse reactions 02-12-20 13 Unknown [facility] Data [facility] Other (6 sources) Pseudoephedrine HCl *NASAL AGENTS - SYSTEMIC AND T Propensity to adverse reactions 02-12-20 13 Unknown Health Data [facility]der Other (3 sources) Cephalosporins (Antibiotic) Allergy to substance 05-31-19 [facility] (3 sources) Pseudoephedrine HCl *NASAL AGE Allergy to substance 05-31-19 [facility] (2 sources) Acetaminophen / Dextromethorphan / Doxylamine / Pseudoephedrine; Translations: [APAP/dextromethorp dwyer/doxylamine/PSE] Drug Allergy Unknown (qualifier value) [facility] (2 sources) Ciprofloxacin; Translations: [ciprofloxacin] Drug Allergy Unknown (qualifier value) [facility] (1 source) Acetaminophen; Translations: [acetaminophen] Drug Allergy [facility] Repository Medications Current Medications Medication Drug Class(es) Dates [...] more days for 5 days May, Active dexamethasone 1 mg oral tablet (1 source) Corticosteroid Start: 10-03-2023 take 1 tablet by mouth once in the evening dexamethasone 1 mg oral tablet 1 mg = 1 tab(s), Oral, Once, Take at 11 PM; Have cortisol level drawn at 8 AM the next day, # 1 tab(s), Refills(s) 0, Pharmacy: [facility], 163, cm, 10/03/23 10:16:00 EDT, Height/Length Dosing, 113.5, kg, 10/03/23 10:16:00 EDT, Weight Dosing Start Date: 10/03/23 Status: Ordered famotidine 20 mg oral tablet (1 source) Histamine-2 Receptor Antagonist Start: 10-03-2023 take 20 mg by mouth once before mealtime Pepcid AC 20 mg, Oral, Once Start Date: 10/03/23 Status: Ordered ferrous sulfate 325 mg oral tablet (5 sources) take 1 tablet by mouth every twenty-four hours losartan potassium 50 mg oral tablet (16 sources) Angiotensin 2 Receptor Taryn Start: 10-03-2023 losartan 50 mg Tab 50 mg = 1 tab(s) Start Date: 10/03/23 Status: Ordered Start: 08-09-2023 take 1 tablet by aida th once daily Losartan Active 50 MG PO Daily August 09, 2023 12:00am FreeTextSig: TAKE ONE TABLET BY MOUTH ONCE DAILY; Note: Source Status: Taking; Refills: 3; Qty: 30 Each; Provider: Antione Palencia ( ) Start: 06-17-2022 take 1 tablet by aida th once daily Losartan Potassium 50 MG Oral Tablet TAKE ONE TABLET BY MOUTH ONCE DAILY Quantity: 30 Refills: 0 Ordered: 18-Jul-2022 DO Start : 17-Jun-2022 Active meclizine hydrochloride 12.5 mg oral tablet (5 sources) Antiemetic take 1 tablet by mouth every twelve hours methylPREDNISolone 4 mg oral tablet (10 sources) Corticosteroid Start: 023 24 hr metoprolol succinate 25 mg extended release oral tablet (11 sources) beta-Adrenergic Taryn Start: 024 take 1 tablet by mouth once daily metoprolol 25 mg ER Tab 25 mg = 1 tab(s), Oral, Daily Start Date: 10/03/23 Status: Ordered Start: 08-09-2023 take 1 tablet by aida th once daily Metoprolol Succinate Active 1 TAB PO Daily August 09, 2023 12:00am FreeTextSi tablet once a day; Note: Source Status: Taking; Provider: Antione Palencia ( ) Start: 08-11-2022 take 1 tablet by aida th once daily Metoprolol Succinate ER 25 MG Oral Tablet Extended Release 24 Hour TAKE 1 TABLET ONCE DAILY. Quantity: 90 Refills: 3 Ordered: 11-Aug-2022 Lake Meyer MD Start : 11-Aug-2022 Active new start omeprazole 40 mg delayed release oral capsule (8 sources) Proton Pump Inhibitor Start: 08-09-2023 take 1 capsule by mouth once daily Omeprazole Active 1 CAP PO Daily August 09, 2023 12:00am FreeTextSi capsule 30 minutes before morning meal Orally Once a day; Note: Source Status: Taking; Refills: 3; Provider: Antione Johnson take 1 capsule by mouth once julio ly Omeprazole 40 MG 1 capsule 30 minutes before morning meal Orally Once a day for 30 days Active prednisoLONE (1 source) Corticosteroid prednisoLONE Act javier predniSONE 20 mg oral tablet (2 sources) Start: take 2 tablets by mouth every twenty-four hours predniSONE 20 MG 2 tablets Orally Once a day for 5 days Feb, Active spironolactone 25 mg oral tablet (16 sources) Aldosterone Antagonist Start: 024 spironolactone 25 mg Tab 25 mg = 1 tab(s) Start Date: 10/03/23 Status: Ordered Start: 08-09-2023 take 1 tablet by aida th once daily Spironolactone Active 25 MG PO Daily August 09, 2023 12:00am FreeTextSig: TAKE ONE TABLET BY MOUTH DAILY; Note: Source Status: Taking; Refills: 2; Qty: 90 Each; Provider: Antione Palencia ( ) Start: 05-14-2022 take 1 tablet by aida th once daily Spironolactone 25 MG Oral Tablet TAKE ONE TABLET BY MOUTH DAILY Quantity: 90 Refills: 0 Ordered: 17-May-2022 DO Start : 14-May-2022 Active sulfamethoxazole 800 mg / trimethoprim 160 mg oral tablet (2 sources) Dihydrofolate Reductase Inhibitor Antibacterial, Sulfonamide Antimicrobial Start: 08-03-2023 take 1 tablet by mouth twice daily Sulfamethoxazole-Trimethoprim Active 1 TAB PO Twice daily August 03, 2023 12:00am tiZANidine 4 mg oral capsule (2 sources) [...] Ordered: 18-Jul-2022 DO Start : 17-Jun-2022 Active Problems Active Problems Problem Classification Problem Date Documented Da te Episodic/Chronic Abdominal pain (15 sources) Pain in female pelvis; Translations: [Pelvic and perineal pain] 08-09-2023 Episodic Cardiac dysrhythmias (3 sources) Palpitations; Translations: [Palpitations] Onset: 3 Episodic Conditions associated with dizziness or vertigo (11 sources) Benign paroxysmal positional vertigo; Translations: [Benign paroxysmal vertigo, bilateral] Episodic Coronary atherosclerosis and other heart disease (12 sources) Coronary arteriosclerosis; Translations: [Atherosclerotic heart disease of [place] coronary artery without angina pectoris] 09-28-2023 Chronic Diabetes mellitus without complication (12 sources) Other abnormal glucose; Translations: [Hyperglycemia] Onset: 2 Episodic Esophageal disorders (8 sources) Gastroesophageal reflux disease without esophagitis; Translations: [Gastro-esophageal reflux disease without esophagitis] Chronic Essential hypertension (20 sources) Essential (primary) hypertension; Translations: [Hypertensive disorder] Onset: 3 Chronic Genitourinary symptoms and ill-defined conditions (12 sources) Dysuria; Translations: [Dysuria] Onset: 4 Episodic Osteoarthritis (1 source) Primary osteoarthritis, left ankle and foot; Translations: [PRIMARY OSTEOARTHRITIS LT ANK FOOT] Onset: 2 Chronic Other aftercare (1 source) Other [facility] drug therapy; Translations: [OTH SNF CURRENT DRUG THERAPY] Onset: 3 Episodic Other [...] thrombosis] Onset: 2 Episodic Residual codes; unclassified (12 sources) Obstructive sleep apnea syndrome; Translations: [Obstructive sleep apnea (adult) (pediatric)] 09-28-2023 Chronic Spondylosis; intervertebral disc disorders; other back [...] Test Name Value Interpretation Reference Range Facility [facility] 10-04-2023 Forms [id number]. 00TIFF Normal [facility] Reportson 10-04-2023 Lab Reports [id number] 0TIFF [facility] Ambulatory Visit Summaryon 0 10-03-2023 Ambulatory Visit Summary HENRRY MELÉNDEZ :1970 Visit Date:10/03/2023 Ambulatory Visit Instructions Your Diagnosis Dysuria Adrenal mass Gross hematuria Tests Performed CT Urogram -- Results Pending -- Please visit your patient portal for your results or contact your primary care physician. Your Care Team Attending Physician - JOHNNA Joya APRN, Zulema Lema Primary Care Physician - SLIME TALBOT MD Referring Physician - SLIME TALBOT MD This Is Your Medications List dexamethasone (dexamethasone 1 mg oral tablet) famotidine (Pepcid AC) losartan (losartan 50 mg Tab) metoprolol (metoprolol 25 mg ER Tab) spironolactone (spironolactone 25 mg Tab) Procedures Performed Cholecystectomy, Hysteroscopy, Stripping of vein. Discharge Vitals Heart Rate (Peripheral) 73 Respiratory Rate 19 Blood Pressure 146/106 Height 163 cm Height 64 in Weight 113.5 kg Weight 249.7 lb BMI 42.72 Medications What How Much When Instructions New dexamethasone (dexamethasone 1 mg oral tablet) 1 Tablets By Mouth Once Take at 11 PM; Have cortisol level drawn at 8 AM the next day Pickup at [facility] Unchanged famotidine (Pepcid AC) 20 Milligram By Mouth Once Unchanged losartan (losartan 50 mg Tab) 1 Tablets Unchanged metoprolol (metoprolol 25 mg ER Tab) 1 Tablets By Mouth Every day Unchanged spironolactone (spironolactone 25 mg Tab) 1 Tablets Pharmacy Information [facility]: [address], [place] [id number] [phone] Allergies Cipro (Unknown) Nyquil Cold Medicine (Unknown) Problems Ongoing - Any problem that you are currently receiving treatment for. ASHD (arteriosclerotic heart disease) Dysuria Essential hypertension GERD without esophagitis Obstructive sleep apnea Patient Survey You may receive a survey via text or e-mail asking about your office visit. Please share your experience with us by completing your survey. We appreciate your feedback and thank you for choosing us for your care. [facility] ED Note-Physicianon 08-16-19 ED Note-Physician [id number] 0TIFF Normal [facility] Urine Cultureon 08-09-2023 Bacteria identified Cx Nom (U) 75,000 colonies/ml mixed bacterial skin contaminants 2 Days PERFORMED BY: [facility] [address] [place] [address] PATHOLOGIST LAY OUT WORKER ISABELA MUÑOZ M.D. Normal [facility] Comment on above: Performed By: #### C UU #### [address] Laboratory - Chemistry and C hemistry - challengeon 08-03-2023 Bilirubin Ql (U) Negative [facility] Glucose (U) [Mass/Vol] Negative [facility] Ketones Ql (U) Negative [facility] pH (U) 5.0 [pH] [facility] Specific gravity (U) [Rel density] 1.015 [facility] Urobilinogen (U) [Mass/Vol] 0.2 mg/dL [facility] Laboratory - Specimen inform ationon 08-03-2023 Appearance (U) clear [facility] Color (U) yellow [facility] Laboratory - Urinalysison Leukocyte esterase Test strip Ql (U) Negative [facility] Nitrite Ql (U) Negative [facility] Protein Ql (U) + [facility] No Panel Informationon 08-02 Urine Occult Blood + [facility] XR KNEE 4+ VIEWS LEFTon XR [...] Weight Tips; Status:Complete - Retrospective Authorization; Done: [id number] Some eating tips that can help you lose weight.; Status:Complete - Retrospective Authorization; Done: [id number] SocHx: Current smoker You need to quit smoking.; Status:Complete - Retrospective Authorization; Done: [id number] Tobacco Use Screening; Status:Complete; Done: [id number] You need to stop smoking. Though it is not easy, more than half of all adult smokers have quit. We encourage you to write down all the reasons you should quit smoking and set a quit date for yourself. Ask us how we can help. You may also call 3-997-GCIMSupremexNOW for free resources and assistance.; Status:Complete - Retrospective Authorization; Done: [id number] Patient Instructions Please bring all medicines, vitamins, [...] negative for complaint. Vitals Vital Signs Recorded: [id number] 09:55AM Heart Rate60, L Radial Qcecpqpc700, LUE, Sitting Vlivgjmtx25, LUE, Sitting Height5 ft 4 in Jboikd235 lb BMI Ovfmsktclz21.2 kg/m2 BSA Calculated2.11 Tobacco Usea) Yes Patient [...] no ma (more content not included)... Normal [employer] Tobacco Screening.on 023 Fall risk assessment c) Not medically indicated [facility] [address] DO Work Phone: Tobacco use status [facility] a) Yes [facility] DO Work Phone: Tobacco Screening. Yes [facility] [address] DO Work Phone: Office Visit (Cardiology)on [...] we can help. You may also call [phone]-SAJBNOW for free resources and assistance.; Status:Complete - Retrospective Authorization; Done: [id number] Tobacco Use Screening; Status:Complete; Done: [id number] Patient Instructions Please bring all medicines, vitamins, [...] to retrieve her recent Holter monitor from [place] 3. I suggested a trial of a [...] VITALSon 08-11-2022 Adult depression screening assessment No [facility] 250 DO Work Phone: Tobacco Screening.on 023 Tobacco use status [facility] a) Yes [facility] DO Work Phone: Tobacco Screening. Yes [facility] DO Work Phone: ECHOCARDIO M/2D COMPLETEon 0 06-27-2022 ECHOCARDIO M/2D COMPLETE Patient: HENRRY MELÉNDEZ Exam Date: 06/27/2022 : 1970 Gender:F Ordering : DR SLIME TALBOT M.D. Admission #: [id number] Family : Order #: [id number] CLICK HERE TO VIEW EXAM ECHOCARDIOGRAM REPORT [...] M.D. on 06/28/2022 at 19:30 Normal The BNPon 06-10-2022 Natriuretic peptide B (Bld) [Mass/Vol] 384.0 pg/mL Normal <=900.0 The Comment on above: Performed By: #### B FRONT END LOADER DRIVER, BMP, HSTROPN #### [id number] [place], [place] [address]Dr. Alis Yifan CBC AUTO DIFFon 06-10-2022 BASO # 0.0 103/ul Normal 0.0-0.1 The Comment on above: Performed By: #### C BC #### [id number] [place], [place] [address]Dr. Alis Yifan Basophils/100 WBC (Bld) 0.5 % Normal 0.2-2.0 The Comment on above: Performed By: #### C BC #### N[address] [place], [place] [address]Dr. Alis Yifan EO # 0.1 103/ul Normal 0.0-0.7 The Comment on above: Performed By: #### C BC #### [id number] [place], [place] [address]Dr. Alis Yifan Eosinophils/100 WBC (Bld) 1.6 % Normal 0.9-7.0 The Comment on above: Performed By: #### C BC #### J[address] [place], [place] [address]Dr. Alis Saha Erythrocyte distribution width (RBC) [Ratio] 15.9 % Critically high 11.0-15.0 The Comment on above: Performed By: #### C BC #### Zutix[address]pt[address] [place], [place] [address]Dr. Alis Saha Hematocrit (Bld) [Volume fraction] 37.1 % Normal 36.0-48.0 The Comment on above: Performed By: #### C BC #### [id number] [place], [place] [address]Dr. Alis Saha Hemoglobin (Bld) [Mass/Vol] 12.2 g/dL Normal 12.0-16.0 The Comment on above: Performed By: #### C BC #### V[address] [place], [place] [address]Dr. Alis Saha IG # 0.02 10e3/ul Normal 0.00-0.03 The Comment on above: Performed By: #### C BC #### B[address]xe[address] [place], [place] [address]Dr. Alis Yifan IG % 0.2 % Normal 0.0-0.5 The Comment on above: Performed By: #### C BC #### [address] [place], [place] [address]Dr. Alis Saha LYMPH # 3.2 103/ul Normal 1.2-3.8 The Comment on above: Performed By: #### C BC #### [address]of[address] [place], [place] [address]Dr. Kavitatrace Saha Lymphocytes/100 WBC (Bld) 37.3 % Normal 20.5-60.0 The Comment on above: Performed By: #### C BC #### S[address] [place], [place] [address]Dr. Alis Saha MANUAL DIFF REQ NO Normal [facility] Comment on above: Performed By: #### C BC #### [id number] [place], [place] [address]Dr. Alis Saha MCH (RBC) [Entitic mass] 29.8 pg Normal 26.7-34.0 The Comment on above: Performed By: #### C BC #### Zqtr[address] [place] [address]Dr. Alis Saha MCHC (RBC) [Mass/Vol] 32.9 g/dL Normal 29.9-35.2 The Comment on above: Performed By: #### C BC #### [address]acl[address]3840 [place] [address]Dr. Alis Saha MCV (RBC) [Entitic vol] 90.5 fL Normal 81.0-99.0 The Comment on above: Performed By: #### C BC #### [address]76 [place] [address]Dr. Alis Yifan MONO # 0.4 103/ul Normal 0.3-0.8 The Comment on above: Performed By: #### C BC #### Bnlosivqmm2623 [place] [address]Dr. Alis Yifan Monocytes/100 WBC (Bld) 4.6 % Normal 1.7-12.0 The Comment on above: Performed By: #### C BC #### Czmjolavpn2641 [place] [address]Dr. Alis Saha NEUT # 4.8 103/ul Normal 1.4-6.5 The Comment on above: Performed By: #### C BC #### S[address]mne6819 [place] [address]Dr. Alis Yifan Neutrophils/100 WBC (Bld) 55.8 % Normal 43.0-75.0 The Comment on above: Performed By: #### C BC #### V[address]esbjymu2896 [place] [address]Dr. Alis Yifan Platelet mean volume (Bld) [Entitic vol] 9.9 fL Normal 9.5-13.5 The Comment on above: Performed By: #### C BC #### [address] [place], [place] [address]Rv. Alis Saha PLT 265 103/ul Normal 150-450 The Comment on above: Performed By: #### C BC #### [address]run[address] [place], [place] [address]Hd. Alis Saha RBC 4.10 106/ul Critically low 4.20-5.40 [facility] Comment on above: Performed By: #### C BC #### Emfr[address]nfmg2726 [place], [place] [address]Hm. Alis Saha WBC 8.7 103/ul Normal 4.0-11.0 The Comment on above: Performed By: #### C BC #### [address] [place], [place] [address]Cg. Alis Saha Covid-19 PCR (CVDTBH)on 05-23 SARS-CoV-2 (COVID-19) RNA AMANDA+probe Ql (Unsp spec) Not detected Normal NOT DETECTED The Comment on above: Result Comment: When diagnostic [...] for this test is supported by the [place] of Health and Human Service's declaration that [...] used). Performed By: #### C VDTBH #### [address] [place], [place] [address] Dr. Alis Saha PROF CHEM 8 (BAS METB)on Anion gap [Moles/Vol] 11.7 mmol/L Normal [facility] Comment on above: Performed By: #### B FRONT END LOADER DRIVER, BMP, HSTROPN #### Aermzpvlmi4800 [place] [address]Dr. Alis Saha Calcium [Mass/Vol] 8.8 mg/dL Normal 8.5-10.1 [facility] Comment on above: Performed By: #### B FRONT END LOADER DRIVER, BMP, HSTROPN #### [address] [place], [place] [address]Dr. Alis Saha Chloride [Moles/Vol] 108 mmol/L Critically high 98-107 [facility] Comment on above: Performed By: #### B FRONT END LOADER DRIVER, BMP, HSTROPN #### Aw[address]km[address] [place], [place] [address]Dr. Alis Saha CO2 [Moles/Vol] 23.7 mmol/L Normal 21.0-32.0 [facility] Comment on above: Performed By: #### B FRONT END LOADER DRIVER, BMP, HSTROPN #### Btk[address] [place], [place] [address]Dr. Alis Saha Creatinine [Mass/Vol] 0.70 mg/dL Normal 0.55-1.02 [facility] Comment on above: Performed By: #### B FRONT END LOADER DRIVER, BMP, HSTROPN #### Gezos[address]cgj[address] [place], [place] [address]Dr. Alis Saha EGFR-AF MICRONESIAN >60 Normal >=60 [facility] Comment on above: Performed By: #### B FRONT END LOADER DRIVER, BMP, HSTROPN #### Pwi[address]em[address] [place], [place] [address]Dr. Alis Saha EGFR-NON AF MICRONESIAN >60 Normal >=60 [facility] Comment on above: Performed By: #### B FRONT END LOADER DRIVER, BMP, HSTROPN #### Otnnxhzsnq7884 [place] [address]Dr. Alis Saha Glucose [Mass/Vol] 119 mg/dL Critically high 74-106 [facility] Comment on above: Performed By: #### B FRONT END LOADER DRIVER, BMP, HSTROPN #### Jcwagjqmam9940 [place] [address]Dr. Alis Saha Potassium [Moles/Vol] 3.4 mmol/L Critically low 3.5-5.1 [facility] Comment on above: Performed By: #### B FRONT END LOADER DRIVER, BMP, HSTROPN #### K[address]qiswkvw5016 [place] [address]Dr. Alis Saha Sodium [Moles/Vol] 140 mmol/L Normal 136-145 [facility] Comment on above: Performed By: #### B FRONT END LOADER DRIVER, BMP, HSTROPN #### Emzmpwivyk6672 [place] [address]Dr. Alis Saha Urea nitrogen [Mass/Vol] 14.0 mg/dL Normal 7.0-18.0 [facility] Comment on above: Performed By: #### B FRONT END LOADER DRIVER, BMP, HSTROPN #### Orwqzpdqyj8397 [place] [address]Dr. Kavitatrace Saha Urea nitrogen/Creatinine [Mass ratio] 20.0 mg/mg Normal [facility] Comment on above: Performed By: #### B FRONT END LOADER DRIVER, BMP, HSTROPN #### Kicssojeoi2357 [place] [address]Dr. Alis Saha TROPONIN, HIGH SENSITIVITYon 06-10-2022 HSTROP 9.9 pg/mL Normal 4.0-51.3 [facility] Comment on above: Result Comment: CUT- OFF POINTS HAVE BEEN ESTABLISHED BASED ON THE FOURTH UNIVERSAL DEFINITIONS OF MYOCARDIAL INFARCTION. THE UPPER REFERENCE LIMIT (URL) OF TROPONIN, DEFINED THE 99TH PERCENTILE OF cTnI DISTRIBUTION IN A REFERENCE POPULATION, HAS BEEN CONFIRMED THE DECISION THRESHOLD FOR NM DIAGNOSIS. Performed By: #### B FRONT END LOADER DRIVER, BMP, HSTROPN #### Dxkzdolvod6669 [place] [address]Dr. Alis Saha XR CHEST 1 Von 06-10-2022 [...] by: POPPY GREEN Date: 2022-06-09 23:02 Normal [facility] XR LSPINE MIN 4 VIEWSon 01-20 XR [...] JUAN CARLOS VILLATORO Date: 2022-02-02 07:17 Normal [facility] XR CSPINE 2_3 VIEWSon 2021 XR CSPINE [...] JUAN CARLOS VILLATORO Date: 2021-10-01 07:13 Normal The CBC AUTO DIFFon 09-30-2021 BASO # 0.0 103/ul Normal 0.0-0.1 [facility] Comment on above: Performed By: #### C BC #### Fhxlnwmifs9108 [place] [address]DrMiranda Alis Saha Basophils/100 WBC (Bld) 0.4 % Normal 0.2-2.0 [facility] Comment on above: Performed By: #### C BC #### Ueucyumnub9860 [place] [address]Dr. Alis Saha EO # 0.1 103/ul Normal 0.0-0.7 The Comment on above: Performed By: #### C BC #### Hsoxckwvhz3856 [place] [address]Dr. Alis Saha Eosinophils/100 WBC (Bld) 1.6 % Normal 0.9-7.0 The Comment on above: Performed By: #### C BC #### Dvfjppoj[address] [place], [place] [address]Dr. Alis Saha Erythrocyte distribution width (RBC) [Ratio] 15.1 % Critically high 11.0-15.0 [facility] Comment on above: Performed By: #### C BC #### G[address]uz[address] [place], [place] [address]Dr. Alis Saha Hematocrit (Bld) [Volume fraction] 41.9 % Normal 36.0-48.0 [facility] Comment on above: Performed By: #### C BC #### T[address] [place], [place] [address]Dr. Alis Saha Hemoglobin (Bld) [Mass/Vol] 13.5 g/dL Normal 12.0-16.0 The Comment on above: Performed By: #### C BC #### Y[address]srwnq[address] [place], [place] [address]Dr. Alis Yifan IG # 0.01 10e3/ul Normal 0.00-0.03 The Comment on above: Performed By: #### C BC #### Vjocpcet[address] [place], [place] [address]Dr. Kavitatrace Saha IG % 0.1 % Normal 0.0-0.5 The Comment on above: Performed By: #### C BC #### Hzwaspcnmb[address] [place], [place] [address]DrMiranda Saha LYMPH # 2.3 103/ul Normal 1.2-3.8 The Comment on above: Performed By: #### C BC #### [address]kc[address] [place] [id number]. Alis Saha Lymphocytes/100 WBC (Bld) 27.9 % Normal 20.5-60.0 [facility] Comment on above: Performed By: #### C BC #### [id number] [place] [id number]. Alis Saha MANUAL DIFF REQ NO Normal [facility] Comment on above: Performed By: #### C BC #### [id number] [place] [id number]. Alis Saha MCH (RBC) [Entitic mass] 28.8 pg Normal 26.7-34.0 The Comment on above: Performed By: #### C BC #### [id number] [place] [id number]. Alis Saha MCHC (RBC) [Mass/Vol] 32.2 g/dL Normal 29.9-35.2 The Comment on above: Performed By: #### C BC #### [id number] [place] [id number]. Alis Saha MCV (RBC) [Entitic vol] 89.3 fL Normal 81.0-99.0 [facility] Comment on above: Performed By: #### C BC #### [id number] [place] [id number]. Alis Saha MONO # 0.5 103/ul Normal 0.3-0.8 The Comment on above: Performed By: #### C BC #### [id number] [place] [id number]. Alis Saha Monocytes/100 WBC (Bld) 5.6 % Normal 1.7-12.0 The Comment on above: Performed By: #### C BC #### [id number] [place] [id number]. Alis Saha NEUT # 5.3 103/ul Normal 1.4-6.5 The Comment on above: Performed By: #### C BC #### [id number] [place] [id number]. Alis Saha Neutrophils/100 WBC (Bld) 64.4 % Normal 43.0-75.0 [facility] Comment on above: Performed By: #### C BC #### [id number] [place] [id number]. Alis Saha Platelet mean volume (Bld) [Entitic vol] 9.5 fL Normal 9.5-13.5 [facility] Comment on above: Performed By: #### C BC #### [id number] [place] [address]Dr. Alis Saha PLT 316 103/ul Normal 150-450 The Comment on above: Performed By: #### C BC #### [id number] [place] [address]Dr. Alis Saha RBC 4.69 106/ul Normal 4.20-5.40 [facility] Comment on above: Performed By: #### C BC #### [id number] [place] [id number]. Alis Saha WBC 8.2 103/ul Normal 4.0-11.0 [facility] Comment on above: Performed By: #### C BC #### [id number] [place] [address]Dr. Alis Saha GLYCOHEMOGLOBIN A1Con 2021 ADA RECOMMENDATION SEE BELOW Normal [facility] Comment on above: Result Comment: ADA RECOMMENDED LIMIT 4.0 - 6.0 ADA THERAPEUTIC TARGET < 7.0 ACTION SUGGESTED > 7.0 Performed By: #### A 1C #### [id number] [place] [address]Dr. Alis Saha Glucose [Mass/Vol] 128 mg/dL Normal [facility] Comment on above: Performed By: #### A 1C #### [id number] [place] [id number]. Alis Saha HbA1c (Bld) [Mass fraction] 6.1 % Normal 4.5-6.2 [facility] Comment on above: Performed By: #### A 1C #### [id number] [place] [address]Dr. Alis Saha PROF CHEM 8 (BAS METB)on Anion gap [Moles/Vol] 11.5 mmol/L Normal [facility] Comment on above: Performed By: #### T SH, BMP #### Laboratory [address] [place] [address] [address] Alis Saha Calcium [Mass/Vol] 8.7 mg/dL Normal 8.5-10.1 [facility] Comment on above: Performed By: #### T SH, BMP #### Laboratory [address] [place] [address] Dr. Alis Saha Chloride [Moles/Vol] 104 mmol/L Normal 98-107 [facility] Comment on above: Performed By: #### T SH, BMP #### Laboratory [address] [place] [address] Dr. Alis Saha CO2 [Moles/Vol] 25.5 mmol/L Normal 21.0-32.0 [facility] Comment on above: Performed By: #### T SH, BMP #### Laboratory [address] [place] [address] Dr. Alis Saha Creatinine [Mass/Vol] 0.85 mg/dL Normal 0.55-1.02 [facility] Comment on above: Performed By: #### T SH, BMP #### Laboratory [address] [place] [address] Dr. Alis Saha EGFR-AF MICRONESIAN >60 Normal >=60 [facility] Comment on above: Performed By: #### T SH, BMP #### Laboratory [address] [place] [address] Dr. Alis Saha EGFR-NON AF MICRONESIAN >60 Normal >=60 [facility] Comment on above: Performed By: #### T SH, BMP #### Laboratory [address] [place] [address] Dr. Alis Saha Glucose [Mass/Vol] 101 mg/dL Normal 74-106 [facility] Comment on above: Performed By: #### T SH, BMP #### Laboratory [address] [place] [address] Dr. Alis Saha Potassium [Moles/Vol] 4.0 mmol/L Normal 3.5-5.1 [facility] Comment on above: Performed By: #### T SH, BMP #### Laboratory [address] [place] [address] Dr. Alis Saha Sodium [Moles/Vol] 137 mmol/L Normal 136-145 [facility] Comment on above: Performed By: #### T SH, BMP #### Laboratory [address] [place] [address] Dr. Alis Saha Urea nitrogen [Mass/Vol] 13.0 mg/dL Normal 7.0-18.0 [facility] Comment on above: Performed By: #### T SH, BMP #### Laboratory [address] [place] [address] Dr. Alis Saha Urea nitrogen/Creatinine [Mass ratio] 15.3 mg/mg Normal [facility] Comment on above: Performed By: #### T SH, BMP #### Laboratory [address] [place] [address] Dr. Alis Saha TSHon 09-30-2021 TSH 1.548 uIU/mL Normal 0.358-3.740 [facility] Comment on above: Performed By: #### T SH, BMP #### Laboratory [address] [place] [address] Dr. Alis Saha TSH RANGE SEE BELOW Normal The Comment on above: Result Comment: <0.3 4 UIU/ml HYPERTHYROID 0.34-5.60 UIU/ml EUTHYROID >5.60 UIU/ml HYPOTHYROID Performed By: #### T SH, BMP #### Laboratory [address] [place] [address] Dr. Alis Saha VC CONSULT FOLLOWUPon 2021 VC CONSULT FOLLOWUP Patient: HENRRY MELÉNDEZ Exam Date: 07/19/2021 : 1970 Gender:F Ordering : DR JUAN CARLOS VILLATORO M.D. Admission #: [id number] Family : Order #: [id number] CLICK HERE TO VIEW EXAM RADIOLOGY REPORT [...] Villatoro MD on 07/19/2021 at 15:16 Normal [facility] VC EXT VENOUS RT LIMITEDon 0 07-19-2021 VC EXT VENOUS RT LIMITED Patient: HENRRY MELÉNDEZ Exam Date: 07/19/2021 : 1970 Gender:F Ordering : DR JUAN CARLOS VILLATORO M.D. Admission #: [id number] Family : Order #: [id number] CLICK HERE TO VIEW EXAM RADIOLOGY REPORT [...] to distal calf. Heat induced thrombus in hydraulic modeling engineer distal calf 1.4 mm from PTV and [...] vein with occlusion of 2 associated incompetent hydraulic modeling engineer veins No deep vein thrombus Dictated by: Juan Carlos Villatoro MD on 07/19/2021 at 14:36 Approved by: Juan Carlos Villatoro MD on 07/19/2021 at 14:37 Normal [facility] VC ENDOVENOUS ABL 1ST V RTon 07-14-2021 VC ENDOVENOUS ABL 1ST V RT Patient: HENRRY MELÉNDEZ Exam Date: 07/14/2021 : 1970 Gender:F Ordering : DR JUAN CARLOS VILLATORO M.D. Admission #: [id number] Family : Order #: [id number] CLICK HERE TO VIEW EXAM RADIOLOGY REPORT PROCEDURE: VEIN CENTER ENDOVENOUS ABLATION FIRST VEIN RIGHT COMPARISON: None. INDICATIONS: Pain co-occurrent and due to varicose veins of bilateral legs I83.813 OPERATIVE REPORT: The risks and benefits of the procedure had been previously discussed, and were rediscussed at length. Informed written consent was obtained by me and Thomas Lazo assisted. Time out procedure [...] Palacios M.D. on 07/14/2021 at 14:50 Normal [facility] Vital Signs Date Time Vital Sign Value Performing Clinician Facility 10-03-2023 09:53-0400 Diastolic blood pressure 106 mm[Hg] Zulema Joya [facility] 10-03-2023 09:53-0400 Heart rate 73 /min Zulema Orzech [facility] 10-03-2023 09:53-0400 Respiratory rate 19 /min Zulema Orzech [facility] 10-03-2023 09:53-0400 Systolic blood pressure 146 mm[Hg] Zulema Orzech [facility] 08-09-2023 11:52-0400 Body height 163.[address] [facility] 08-09-2023 11:52-0400 Body mass index (BMI) [Ratio] 41.8 kg/m2 [facility] 08-09-2023 11:52-0400 Body temperature 96.8 [degF] [facility] 08-09-2023 11:52-0400 Body weight 112.[address] [facility] 08-09-2023 11:52-0400 Diastolic blood pressure 81 mm[Hg] [facility] 08-09-2023 11:52-0400 Heart rate 80 /min [facility] 08-09-2023 11:52-0400 Systolic blood pressure 114 mm[Hg] [facility] 05-31-2023 10:15-0500 Body height 163.83 cm Slime Talbot Other [facility] 05-31-2023 10:15-0500 Body mass index (BMI) [Ratio] 42.89 kg/m2 Slime Talbot Other [facility] [employer] Other 05-31-2023 10:15-0500 Body weight 115.12 kg Slime Talbot Other [facility] 05-31-2023 10:15-0500 Diastolic blood pressure 83 mm[Hg] Slime Talbot Other [facility] 05-31-2023 10:15-0500 Systolic blood pressure 124 mm[Hg] Slime Talbot Other [facility] 04-20-2023 11:15-0500 Body height 163.83 cm Slime Talbot Other [employer] Other 04-20-2023 11:15-0500 Body mass index (BMI) [Ratio] 42.58 kg/m2 Slime Talbot Other [employer] Other 04-20-2023 11:15-0500 Body weight 114.31 kg Slime Talbot Other [employer] Other 04-20-2023 11:15-0500 Diastolic blood pressure 88 mm[Hg] Slime Talbot Other [employer] Other 04-20-2023 11:15-0500 Systolic blood pressure 138 mm[Hg] Slime Talbot Other [facility] [employer] Other 02-21-2023 11:15-0400 Body height 163.83 cm Slime Talbot Other [employer] Other 02-21-2023 11:15-0400 Body mass index (BMI) [Ratio] 41.91 kg/m2 Slime Talbot Other [facility] [employer] [facility] Other 02-21-2023 11:15-0400 Body weight 112.49 kg Slime Talbot Other [facility] [employer] [facility] Other 02-21-2023 11:15-0400 Diastolic blood pressure 86 mm[Hg] Slime Talbot Other [employer] Other 02-21-2023 11:15-0400 Systolic blood pressure 130 mm[Hg] Slime Talbot Other [employer] Other 12-02-2022 09:55-0400 Body height 162.56 cm Slime Talbot Work Phone: [facility] DO Work Phone: 12-02-2022 09:55-0400 Body mass index (BMI) [Ratio] 41.2 kg/m2 Slime Talbot Work Phone: [facility] DO Work Phone: 12-02-2022 09:55-0400 Body surface area Derived from formula 2.11 m2 Slime Talbot Work Phone: [facility] DO Work Phone: 12-02-2022 09:55-0400 Body weight 108.86 kg Slime Talbot Work Phone: [facility] DO Work Phone: 12-02-2022 09:55-0400 Diastolic blood pressure 62 mm[Hg] Slime Talbot Work Phone: [facility] DO Work Phone: 12-02-2022 09:55-0400 Heart rate 60 /min Slime Talbot Work Phone: [facility] DO Work Phone: 12-02-2022 09:55-0400 Systolic blood pressure 118 mm[Hg] Slime Talbot Work Phone: [facility] DO Work Phone: 08-11-2022 13:37-0400 Diastolic blood pressure 86 mm[Hg] Slime Talbot Work Phone: [facility] DO Work Phone: 08-11-2022 13:37-0400 Systolic blood pressure 137 mm[Hg] Slime Talbot Work Phone: [facility] DO Work Phone: 08-11-2022 13:26-0400 Heart rate 62 /min Slime Talbot Work Phone: [facility] DO Work Phone: 08-11-2022 13:24-0400 Diastolic blood pressure 88 mm[Hg] Slmie Talbot Work Phone: [facility] DO Work Phone: 08-11-2022 13:24-0400 Systolic blood pressure 132 mm[Hg] Slime Talbot Work Phone: [facility] DO Work Phone: 08-11-2022 13:23-0400 Body height 162.56 cm Slime Talbot Work Phone: [facility] DO Work Phone: 08-11-2022 13:23-0400 Body mass index (BMI) [Ratio] 40.85 kg/m2 Slime Talbot Work Phone: [facility] DO Work Phone: 08-11-2022 13:23-0400 Body surface area Derived from formula 2.11 m2 Slime Talbot Work Phone: [facility] DO Work Phone: 08-11-2022 13:23-0400 Body weight 107.96 kg Slime Talbot Work Phone: [facility] DO Work Phone: 08-11-2022 13:23-0400 Diastolic blood pressure 90 mm[Hg] Slime Talbot Work Phone: [facility] DO Work Phone: 08-11-2022 13:23-0400 Systolic blood pressure 140 mm[Hg] Slime Talbot Work Phone: [facility] DO Work Phone: Encounters Encounter Date Encounter Type Care Provider Facility Start: 10-03-2023 End: 10-04-2023 ambulatory SLIME TALBOT Facility:[facility] Start: 10-03-2023 End: 10-03-2023 Patient encounter procedure Zulema Joya [facility] [place] Start: 08-10-2023 ambulatory SLIME TALBOT Facility:[facility] Start: 08-09-2023 End: 08-09-2023 Departed Referred MD Slime Talbot Work Phone: [facility] [place] Work Phone: Start: 08-09-2023 End: 08-09-2023 ambulatory Slime Talbot [facility] Work Phone: Start: 08-09-2023 End: 08-09-2023 Patient encounter procedure [facility] Work Phone: Start: 08-03-2023 End: 08-03-2023 ambulatory [facility] Work Phone: Start: 08-03-2023 End: 08-03-2023 Patient encounter procedure [facility] Work Phone: Start: 05-31-2023 End: 05-31-2023 ambulatory Slime Talbot Other [facility] [employer] Other Start: 05-31-2023 Office outpatient vi sit 15 minutes Slime Talbot [facility] Start: 05-31-2023 End: 05-31-2023 Patient encounter procedure [facility] Work Phone: Start: 05-25-2023 End: 05-26-2023 ambulatory ZOLTAN HENDERSON Not Available Start: 04-24-2023 End: 04-24-2023 ambulatory Slime Talbot Other [facility] [employer] Other Start: 04-24-2023 Telephone encounter Slime Talbot [facility] Start: 04-20-2023 End: 04-20-2023 ambulatory Slime Talbot Other [facility] [employer] Other Start: 04-20-2023 Office outpatient vi sit 15 minutes Slime Talbot [facility] Start: 03-28-2023 (Televisit) Televisit [facility] Start: 03-28-2023 End: 03-28-2023 ambulatory Slime Talbot Other [facility] [employer] Other Start: 02-21-2023 End: 02-21-2023 ambulatory Slime Talbot Other [employer] Other Start: 02-21-2023 Office outpatient vi sit 25 minutes Slime Talbot [facility] Start: 12-02-2022 ambulatory MD SLIME TALBOT Facility: Start: 12-02-2022 Office outpatient vi sit 15 minutes [facility] Work [facility]: Start: 08-18-2022 End: 08-18-2022 ambulatory Slime Talbot Other [employer] Other Start: 08-18-2022 Telephone encounter Slime Talbot [facility] Start: 08-11-[address] [place] Meyer Facility: Start: 08-11-2022 Office consultation new/estab patient 60 min Slime Talbot [facility] Work Phone: Start: 08-05-2022 End: 08-05-2022 ambulatory Slime Talbot Other [employer] Other Start: 08-05-2022 Nursing evaluation o f patient and report Slime Talbot [facility] Start: 07-04-2022 End: 07-04-2022 ambulatory Slime Talbot Other [employer] Other Start: 07-04-2022 Telephone encounter Slime Talbot [facility] Start: 06-27-2022 End: 06-28-[address] SLIME TALBOT Facility:[facility] Start: 06-22-2022 End: 06-22-2022 ambulatory Slime Talbot Other [employer] Other Start: 06-22-2022 Telephone encounter Slime Talbot [facility] Start: 06-14-2022 End: 06-14-2022 ambulatory Slime Talbot Other [employer] Other Start: 06-14-2022 Telephone encounter Slime Talbot [facility] Start: 06-12-2022 End: 06-12-2022 ambulatory ELY [...] VILLATORO Facility:[facility] Start: 08-28-2021 End: 08-28-2021 ambulatory GM BURNETT Facility:[facility] Start: 07-26-[address] SLIME TALBOT Facil ity:[facility] Start: 07-19-2021 End: 07-20-[address] JUAN CARLOS VILLATORO Facility:[facility] Start: 07-14-2021 End: 07-15-[address] JUAN CARLOS VILLATORO Facility:[facility] Procedures Date Procedure Procedure Detail Performing Clinician Cholecystectomy Slime E Hayley un Work Phone: Cholecystectomy Zulema Orzec h Hysteroscopy Zulema Orzech Ligation of varicose vein Otis Talbot Work Phone: Stripping of vein Zulema Orz ech Total colonoscopy Slime mancuso Work Phone: Comment on above: over 10 years ago; Plan of Treatment Date Care Activity Detail Author Start: 08-09-2023 Bacteria identified in Urine by Culture [facility] Start: 08-09-2023 Patient referral [facility] Work Phone: Start: 12-02-2022 FUV, Provider: Lake Meyer, Status: Pen, Time: 9:40 AM FUV, Provider: Lake Meyer, Status: Pen, Time: 9:40 AM [facility] DO Work Phone: Patient referral [facility] Work Phone: Payers Date Payer Category Payer Unknown [id number] 1970 Unknown [id number] 2.16.84 [id number] 1970 Unknown [id number] 2.16.84 0.1.676300.3.579.2.593 1970 Unknown [id number] 2.16.84 0.1.832487.3.579.2.593 1970 Unknown [id number] 2.16.84 0.1.517847.3.579.2.593 1970 Unknown [id number] 2.16.84 0.1.374272.3.579.2.593 1970 Unknown [id number] 2.16.84 0.1.348424.3.579.2.593 1970 Unknown [id number] 2.16.84 0.1.065155.3.579.2.593 1970 Unknown [id number] 2.16.84 0.1.747891.3.579.2.593 1970 Unknown [id number] 2.16.84 0.1.564649.3.579.2.593 1970 Unknown [id number] 2.16.84 0.1.657206.3.579.2.593 1970 Unknown [id number] 2.16.84 0.1.879973.3.579.2.593 1972 Unknown [id number] 2.16.84 0.1.040069.3.579.2.593 1972 Unknown [id number] 2.16.84 0.1.411896.3.579.2.593 1972 Unknown [id number] 2.16.84 0.1.768366.3.579.2.593 1972 Unknown [id number] 2.16. 840.1.384760.3.579.2.356 1970 Unknown [id number] 2.16. 840.1.782033.3.579.2.356 1970 Unknown [id number] 2.16.840 .1.253916.3.579.2.1259 1970 Unknown [id number] 2.16.840 .1.225754.3.579.2.1259 1970 Unknown [id number] 2.16.8 40.1.313127.3.579.2.727 1959 Unknown [id number] Unknown [employer] Social History Date Type Detail Facility Unknown if ever smoked [employer] Other Sex Assigned At [facility] Caffeine use Caffeine use [place] [address] DO Work Phone: Comment on above: pop all day; 5-10 cigarettes jessi y; Start: 1970 Sex Assigned At Female F [facility] Start: 10-03-2023 Tobacco smoking status Heavy t obacco smoker (finding) [facility] Functional Status Date Assessment Result Facility 10-03-2023 Functional Status N/A [facility] Clinical Notes 09-30-2021 to 10-03-2023 Note Date & Type Note Facility 10-03-2023 Evaluation + Plan note Diagnostic Tests PendingCortisol 10/03/23Lab Miscellaneous-LC 10/03/23Lab Miscellaneous-LC 10/03/23 [facility] 05-31-2023 Evaluation note Encounter Date Diagnosis Assessment Notes May, Pain, joint, knee, left (ICD-10 - M25.562) Pt declines PT at this time. Will attempt MRI. She declines Ortho referral at this time as well. MRI order sent to . work note given for restrictions as she is unable to climb a lot of stairs due to pain. May, Uncontrolled hypertension (ICD-10 - I10) Reviewed labs w pt. No hypokalemia or other electrolyte abnormalities noted in Apr. [facility] [employer] Other 12-04-2023 Evaluation note* Encounter Date Diagnosis Assessment Notes Treatment Notes Treatment Clinical Notes Apr, Essential hypertension (ICD-10 - I10) [facility] [employer] Other 11-30-2023 Evaluation note* Encounter Date Diagnosis Assessment Notes Treatment Notes Treatment Clinical Notes Mar, Radicular syndrome of left leg (ICD-10 - M54.10) Agrees to imaging to r/o DDD or lumbar fracture. Mar, Leg pain, left (ICD-10 - M79.605) Discussed concern for DVT. US scheduled for today. [employer] Other 11-07-2023 Evaluation note* Encounter Date Diagnosis [...] verbalized understanding and agreement with treatment plan. [employer] Other 10-03-2023 Evaluation note* Encounter Date Diagnosis [...] Advised she limit NSAIDs and added omeprazole [employer] Other 03-30-2023 Evaluation note* Encounter Date Diagnosis Assessment Notes Treatment Notes Treatment Clinical Notes Jul, Uncontrolled hypertension (ICD-10 - I10) [employer] Other 03-17-2023 Evaluation note* Encounter Date Diagnosis Assessment Notes Treatment Notes Treatment Clinical Notes Jul, Dysuria (ICD-10 - R30.0) [employer] Other 12-16-2022 NotePROCEDURE: XR ANKLE LT MIN 3 V, [...] Electronically authenticated by: SARKIS PALACIOS Date: 2022-05-06 07:13[facility]12-16-2022 NotePROCEDURE: XR ANKLE LT MIN 3 V, [...] Electronically authenticated by: SARKIS PALACIOS Date: 2022-05-06 07:13[facility]05-12-2022 NotePROCEDURE: XR ELBOW LT MIN 3 VIEWS HISTORY: Pain of left elbow joint , acute; limited range of motion COMPARISON: None. FINDINGS: BONES:No fracture, acute abnormality, or significant arthropathy. SOFT TISSUES:No visible soft tissue swelling. EFFUSION:None visible. OTHER: Negative. IMPRESSION: 1. Normal examination. Electronically authenticated by: SARKIS PALACIOS Date: 2021-09-30 16:50The Chief complaint Narrative - ReportedHENRRY MELÉNDEZ is being seen for a consultation for blood pressure issues.[facility] DO Work Phone: Evaluation noteNo InformationNort [employer] Other Evaluation noteNo assessment information available [facility] Work Phone: Evaluation note* Diagnosis Onset Date Resolution Status Dysuria acute Hematuria acute Left flank pain acute [facility] Work Phone: History general Narrative - Reported* [...] LYSIS OF ADHESIONS 09/2015 Hospitalization History SEE SURGICAL [facility] [employer] Other History of Present illness Narrative* Patient [...] to retrieve her recent Holter monitor from [place] * 3. I suggested a trial of [...] diet * 6. Follow-up in 4 months [facility] DO Work Phone: History of Present illness [...] diet * 5. Follow-up in 4 months [facility] 250 DO Work Phone: Hospital course Narrative No data available for this section [facility] Hospital Discharge instructionsAmbulatory Orders* Referral to Urology Time Frame: 08/09/23, Location: [facility] Work Phone: Hospital Discharge instructions No data available for this section [facility] progress note No data available for this section [facility] Summary Purpose Family History No Family History [...] ure of right hand (M72.0) Referral Organization [facility] Referring Provider First Name Slime Referring Provider Last Name Antione Referring Provider Specialty Family [facility] cine Referred Organization [facility] Referred Provider Deisi Branch Referred Address [address] [place], [place],[address] Referred Provider Specialty Orthopedic S urgery Referral Priority Routine General Notes Sandhya Fleming 02:27:21 PM >received today, sent P2P Chief Complaint and Reason for Visit Chief Complaint Noms Uc F/U- Knee Pa in UA-Pain, Frequency, Urgency Chief Complaint Noms Uc F/U- Knee Pa in UA-Pain, Frequency, Urgency Bladder/ Left Flank Area Reason for Visit Dysuria Hematuria Left flank pain Additional Source Comments INFORMATION SOURCE (unrecogn ized section and content) DATE CREATED AUTHOR 06/30/2022 [facility] DATE CREATED AUTHOR AUTHOR'S ORGANIZ ATION 12/03/2022 [facility] DATE CREATED AUTHOR AUTHOR'S ORGANIZ ATION 12/03/2022 [employer] DATE CREATED AUTHOR AUTHOR'S ORGANIZ ATION 05/29/2023 [facility] DATE CREATED AUTHOR AUTHOR'S ORGANIZ ATION 08/12/[address] [facility] [facility] DATE CREATED AUTHOR AUTHOR'S ORGANIZ ATION 10/05/2023 [facility] REASON FOR VISIT (unrecogniz ed section and [...] Status Dates Slime Talbot MD Primary Care Provide r, Attending Provider Active Start: August 03, 2023 End: August 03, 2023 Team Status: Inactive Member Role Status Dates Slime Talbot MD Primary Care Provide r, Attending Provider Active Start: August 09, 2023 End: August 09, 2023 Team Status: Inactive Member Role Status Dates Slime Talbot MD Attending Provider Active St art: August 09, 2023 End: August 09, 2023 Goals (unrecognized section and content) Goals may [...] BE BASED ON THE PRIMARY CLINICAL RECORDS. [employer] provides no warranty or guarantee of the accuracy or completeness of information in this document.
--- OUTSIDE RECORDS SUMMARY | 2023-10-14 08:08 | XMS_ITS | CCD ---
Author Organization [facility] Care Team Providers Care Benzene Still Utility Operator Name Role Phone SHAUNA, DR JUAN CARLOS Mayberry Consulting Unavailable TALBOT, DR SLIME Johnson Primary Care Unavailable TALBOT, DR SLIME Johnson Attending Unavailable TALBOT, DR SLIME Johnson Admitting Unavailable ZIJENSEN, DR SARKIS Stevens Consulting Unavailable TALBOT, DR [...] Unavailable JANI, CHEKO Admitting Unavailable TALBOT, DR SLMIE Johnson Primary Care Unavailable TALBOT, DR SLIME [...] WEST, DR JUAN CARLOS Mayberry Admitting Unavailable WEST, DR JUAN CARLOS Mayberry Consulting [...] TALBOT, DR SLIME Johnson Primary Care Unavailable ANTIONE, DR SLIME Johnsno Attending Unavailable ANTIONE, DR SLIME Johnson Admitting Unavailable TALBOT, DR SLIME Johnson Consulting Unavailable DIAB, ELY [...] kendrick TALBOT, MD SLIME LOWERY Primary Care Unava ilable MD SLIME TALBOT Primary Care Unava ilable Mitch, Dr. Bethea Referring Unavaila ble Mitch, Dr. Bethea Attending Unavaila ZOLTAN Blum Attending Unavailable ZOLTAN HENDERSON Referring Unavailable MD Slime Talbot Attending Provider Slime Talbot Admitting Unavailable Slime Talbot Attending Unavailable SLIME TALBOT Primary Care Physician Zulema Joya Attending Unavailable SLIME TALBOT Referring Unavailable Allergies Allergy Classification Reported Allergen(s) Allergy Type Date of Onset Reaction(s) Facility (5 sources) Cefuroxime Drug Allergy Unknown [facility] Other (14 sources) Codeine Drug Allergy 05-31-19 24 Unknown, [facility] (5 sources) Pseudoephedrine Drug Allergy Unknown [facility] Other (1 source) cefdinir; Translations: [cefdinir] Drug Allergy Other -[place] [address] DO Work Phone: (6 sources) Ceftin *CEPHALOSPORINS* Propensity to adverse reactions 02-12-20 13 Unknown [facility] Other (6 sources) Pseudoephedrine HCl *NASAL AGENTS - SYSTEMIC AND T Propensity to adverse reactions 02-12-20 13 Unknown [facility] Other (3 sources) Cephalosporins (Antibiotic) Allergy to substance 05-31-19 [facility] (3 sources) Pseudoephedrine HCl *NASAL AGE Allergy to substance 05-31-19 [facility] (2 sources) Acetaminophen / Dextromethorphan / Doxylamine / Pseudoephedrine; Translations: [APAP/dextromethorp dwyer/doxylamine/PSE] Drug Allergy Unknown (qualifier value) [facility] (2 sources) Ciprofloxacin; Translations: [ciprofloxacin] Drug Allergy Unknown (qualifier value) [facility] (1 source) Acetaminophen; Translations: [acetaminophen] Drug Allergy [facility] Repository Medications Current Medications Medication Drug [...] oral tablet (11 sources) beta-Adrenergic Taryn Start: take 1 tablet by mouth once daily [...] oral tablet (16 sources) Aldosterone Antagonist Start: spironolactone 25 mg Tab 25 mg = [...] Coronary arteriosclerosis; 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 The pain or discomfort may be felt in the part of the body that drains urine from the bladder (urethra) or in the surrounding tissue of the genitals. The pain may also be felt in the groin area, lower abdomen, or lower back. You may have to urinate frequently or have the sudden feeling that you have to urinate (urgency). Dysuria can affect anyone, but it is more common in females. Dysuria can be caused by many different things, including: ? Urinary tract infection. ? Kidney stones or bladder stones. ? Certain STIs (sexually transmitted infections), such as chlamydia. ? Dehydration. ? Inflammation of the tissues of the vagina. ? Use of certain medicines. ? Use of certain soaps or scented products that cause irritation. Follow these instructions at home: Medicines ? Take vjho-oip-rdiaair and prescription medicines only as told by your health care provider. ? If you were prescribed an antibiotic medicine, take it as told by your health care provider. Do not stop taking the antibiotic even if you start to feel better. Eating and drinking ? Drink enough fluid to keep your urine pale yellow. ? Avoid caffeinated beverages, tea, and alcohol. These beverages can irritate the bladder and make dysuria worse. In males, alcohol may irritate the prostate. General instructions ? Watch your condition for any changes. ? Urinate often. Avoid holding urine for long periods of time. ? If you are female, you should wipe from front to back after urinating or having a bowel movement. Use each piece of toilet paper only once. ? Empty your bladder after sex. ? Keep all follow-up visits. This is important. ? If you had any tests done to find the cause of dysuria, it is up to you to get your test results. Ask your health care provider, or the department that is doing the test, when your results will be ready. Contact a health care provider if: ? You have a fever. ? You develop pain in your back or sides. ? You have nausea or vomiting. ? You have blood in your urine. ? You are not urinating as often as you usually do. Get help right away if: ? Your pain is severe and not relieved with medicines. ? You cannot eat or drink without vomiting. ? You are confused. ? You have a rapid heartbeat while resting. ? You have shaking or chills. ? You feel extremely weak. Summary ? Dysuria is pain or discomfort while urinating. Many different conditions can lead to dysuria. ? If you have dysuria, you may have to urinate frequently or have the sudden feeling that you have to urinate (urgency). ? Watch your condition for any changes. Keep all follow-up visits. ? Make sure that you urinate often and drink enough fluid to keep your urine pale yellow. This information is not intended to replace advice given to you by your health care provider. Make sure you discuss any questions you have with your health care provider. Document Revised: 12/18/2020 Document Reviewed: 12/18/2020 Club 42cm Patient Education ? 2022 [place]. Hematuria, Adult Hematuria is blood in the urine. Blood may be visible in the urine, or it may be identified with a test. This condition can be caused by infections of the bladder, urethra, kidney, or prostate. Other possible causes include: ? Kidney stones. ? Cancer of the urinary tract. ? Too much calcium in the urine. ? Conditions that are passed from parent to child (inherited conditions). ? Exercise that requires a lot of energy. Infections can usually be treated with medicine, and a kidney stone usually will pass through your urine. If neither of these is the cause of your hematuria, more tests may be needed to identify the cause of your symptoms. It is very important to tell your health care provider about any blood in your urine, even if it is painless or the blood stops without treatment. Blood in the urine, when it happens and then stops and then happens again, can be a symptom of a very serious condition, including cancer. There is no pain in the initial stages of many urinary cancers. Follow these instructions at home: Medicines ? Take yhzj-hmt-fzslgxe and prescription medicines only as told by your health care provider. ? If you were prescribed an antibiotic medicine, take it as told by your health care provider. Do not stop taking the antibiotic even if you start to feel better. Eating and drinking ? Drink enough fluid to keep your urine pale yellow. It is recommended that you drink 3?4 quarts (2.8?3.8 L) a day. If you have been diagnosed with an infection, drinking cranberry juice in addition to large amounts of water is recommended. ? Avoid caffeine, tea, and carbonated beverages. These tend to irritate the bladder. ? Avoid alcohol because it may irritate the prostate (in males). General instructions ? If you have been diagnosed with a kidney stone, follow y (more content not included)... Normal [facility] Formson 10-04-2023 Forms [id number]. [id number] Normal [facility] Lab Reportson 10-04-2023 Lab Reports [id number] 0TIFF Normal [facility] Ambulatory Visit Summaryon 0 10-03-2023 Ambulatory [...] Pharmacy Information [facility]: [address] [place], [place] [phone] Allergies Cipro (Unknown) Nyquil Cold Medicine (Unknown) [...] you for choosing us for your care. Normal [facility] ED Note-Physicianon 08-16-19 ED Note-Physician [id number] 0TIFF Normal [facility] Urine Cultureon 08-09-2023 Bacteria identified Cx Nom (U) 75,000 colonies/ml mixed bacterial skin contaminants 2 Days PERFORMED BY: [place] [address] PATHOLOGIST PRIVATE ADVISOR ISABELA MUÑOZ M.D. [facility] Comment on above: Performed By: #### C UU #### [facility] [address] Laboratory - Chemistry and C hemistry - challengeon 08-03-2023 Bilirubin Ql (U) Negative [facility] Glucose (U) [Mass/Vol] Negative [facility] Ketones Ql (U) Negative [facility] pH (U) 5.0 [pH] [facility] Specific gravity (U) [Rel density] 1.015 [facility] Urobilinogen (U) [Mass/Vol] 0.2 mg/dL [facility] Laboratory - Specimen inform ationon 08-03-2023 Appearance (U) clear [facility] Color (U) yellow [facility] Laboratory - Urinalysison Leukocyte esterase Test strip Ql (U) Negative [facility] Nitrite Ql (U) Negative [facility] Protein Ql (U) + [facility] No Panel Informationon 08-02 Urine Occult Blood + [facility] XR KNEE 4+ VIEWS LEFTon XR KNEE [...] Weight Tips; Status:Complete - Retrospective Authorization; Done: [id number] Some eating tips that can help you lose weight.; Status:Complete - Retrospective Authorization; Done: [id number] SocHx: Current smoker You need to quit smoking.; Status:Complete - Retrospective Authorization; Done: [id number] Tobacco Use Screening; Status:Complete; Done: [id number] You need to stop smoking. Though it is not easy, more than half of all adult smokers have quit. We encourage you to write down all the reasons you should quit smoking and set a quit date for yourself. Ask us how we can help. You may also call 5-623-DOZTNOW for free resources and assistance.; Status:Complete - Retrospective Authorization; Done: [id number] Patient Instructions Please bring all medicines, vitamins, [...] mild sinus tachycardia due to withdrawal of beta-tarny seem to be improving with reinstituting a [...] negative for complaint. Vitals Vital Signs Recorded: [id number] 09:55AM Heart Rate60, L Radial Nsygxhdm794, LUE, Sitting Hbxxvwajs88, LUE, Sitting Height5 ft 4 in Dkvgtk934 lb BMI Wsuarupsxu18.2 kg/m2 BSA Calculated2.11 Tobacco Usea) Yes Patient [...] no ma (more content not included)... Normal [facility] Tobacco Screening.on 023 Fall risk assessment c) Not medically indicated [facility] [employer] 250 DO Work Phone: Tobacco use status [facility] a) Yes [facility] [email or web address] DO Work Phone: Tobacco Screening. Yes [facility] [employer] 250 DO Work Phone: Office Visit (Cardiology)on [...] we can help. You may also call 9-520-FTWY-NOW for free resources and assistance.; Status:Complete - [...] to retrieve her recent Holter monitor from [employer]. I suggested a trial of a [...] VITALSon 08-11-2022 Adult depression screening assessment No [facility] [employer] 250 DO Work Phone: Tobacco Screening.on 023 Tobacco use status [facility] a) Yes [facility] 250 DO Work Phone: Tobacco Screening. Yes [facility] 250 DO Work Phone: ECHOCARDIO M/2D COMPLETEon 0 06-27-2022 ECHOCARDIO M/2D COMPLETE Patient: RIKA, HENRRY Exam Date: 06/27/2022 : 1970 Gender:F Ordering : DR SLIME TALBOT M.D. Admission #: [id number] Family : Order #: [id number] CLICK HERE TO VIEW EXAM ECHOCARDIOGRAM REPORT [...] M.D. on 06/28/2022 at 19:30 Normal [facility] BNPon 06-10-2022 Natriuretic peptide B (Bld) [Mass/Vol] 384.0 pg/mL Normal <=900.0 [facility] Comment on above: Performed By: #### B TOWBOAT ENGINEER, BMP, HSTROPN ####[facility] [address] [place] [address]Dr. Alis Saha CBC AUTO DIFFon 06-10-2022 BASO # 0.0 103/ul Normal 0.0-0.1 [facility] Comment on above: Performed By: #### C BC ####[facility] [address] [place] [address]Dr. Alis Saha Basophils/100 WBC (Bld) 0.5 % Normal 0.2-2.0 [facility] Comment on above: Performed By: #### C BC ####[facility] [address]ls[address] [place] [id number]. Alis Saha EO # 0.1 103/ul Normal 0.0-0.7 [facility] Comment on above: Performed By: #### C BC ####[facility] [address] [place] [id number]. Alis Saha Eosinophils/100 WBC (Bld) 1.6 % Normal 0.9-7.0 [facility] Comment on above: Performed By: #### C BC ####[facility] [address]uy[address] [place] [address]Dr. Alis Saha Erythrocyte distribution width (RBC) [Ratio] 15.9 % Critically high 11.0-15.0 [facility] Comment on above: Performed By: #### C BC ####[facility] [address] [place], [place] [address]Dr. Alis Saha Hematocrit (Bld) [Volume fraction] 37.1 % Normal 36.0-48.0 [facility] Comment on above: Performed By: #### C BC ####[facility] Af[address] [place], [place] [address]Dr. Alis Saha Hemoglobin (Bld) [Mass/Vol] 12.2 g/dL Normal 12.0-16.0 [facility] Comment on above: Performed By: #### C BC ####[facility] [address] [place], [place] [address]Dr. Alis Saha IG # 0.02 10e3/ul Normal 0.00-0.03 [facility] Comment on above: Performed By: #### C BC ####[facility] [address] [place], [place] [address]Dr. Alis Saha IG % 0.2 % Normal 0.0-0.5 [facility] Comment on above: Performed By: #### C BC ####[facility] [address] [place], [place] [address]Dr. Alis Saha LYMPH # 3.2 103/ul Normal 1.2-3.8 [facility] Comment on above: Performed By: #### C BC ####[facility] [address] [place], [place] [address]Dr. Alis Saha Lymphocytes/100 WBC (Bld) 37.3 % Normal 20.5-60.0 [facility] Comment on above: Performed By: #### C BC ####[facility] I[address]rasj[address] [place] [id number]. Alis Saha MANUAL DIFF REQ NO Normal [facility] Comment on above: Performed By: #### C BC ####[facility] I[address]vcxlbro[address] [place] [id number]. Alis Yifan MCH (RBC) [Entitic mass] 29.8 pg Normal 26.7-34.0 [facility] Comment on above: Performed By: #### C BC ####[facility] [address]ncuev[address] [place] [id number]. Alis Saha MCHC (RBC) [Mass/Vol] 32.9 g/dL Normal 29.9-35.2 [facility] Comment on above: Performed By: #### C BC ####[facility] M[address]cr[address] [place], [place] [address]Dr. Kavitatrace Saha MCV (RBC) [Entitic vol] 90.5 fL Normal 81.0-99.0 [facility] Comment on above: Performed By: #### C BC ####[facility] [address] [place], [place] [address]Dr. Alis Yifan MONO # 0.4 103/ul Normal 0.3-0.8 [facility] Comment on above: Performed By: #### C BC ####[facility] [address] [place] [address]Dr. Kavitatrace Saha Monocytes/100 WBC (Bld) 4.6 % Normal 1.7-12.0 [facility] Comment on above: Performed By: #### C BC ####[facility] [address] [place], [place] [address]Dr. Alis Saha NEUT # 4.8 103/ul Normal 1.4-6.5 [facility] Comment on above: Performed By: #### C BC ####[facility] [address] [place], [place] [address]Dr. Alis Saha Neutrophils/100 WBC (Bld) 55.8 % Normal 43.0-75.0 [facility] Comment on above: Performed By: #### C BC ####[facility] [address] [place], [place] [address]Kg. Alis Saha Platelet mean volume (Bld) [Entitic vol] 9.9 fL Normal 9.5-13.5 [facility] Comment on above: Performed By: #### C BC ####[facility] [address] [place], [place] [address]Nh. Alis Saha PLT 265 103/ul Normal 150-450 [facility] Comment on above: Performed By: #### C BC ####[facility] Iztsmhpcrn4320 [place], [place] [address]Oa. Alis Saha RBC 4.10 106/ul Critically low 4.20-5.40 [facility] [place] Comment on above: Performed By: #### C BC ####[facility] Xx[address]xybx4[address] [place], [place] [address]Jw. Alis Saha WBC 8.7 103/ul Normal 4.0-11.0 [facility] Comment on above: Performed By: #### C BC ####[facility] [address]jv[address]zdd[address] [place], [place] [address]Vu. Alis Saha [facility]on 05-23 SARS-CoV-2 (COVID-19) RNA AMANDA+probe Ql (Unsp spec) Not detected Normal NOT DETECTED [facility] Comment on above: Result Comment: When diagnostic [...] for this test is supported by the Child Nutrition Manager of Health and Human Service's declaration that [...] used). Performed By: #### C VDTBH #### [facility] Laboratory [address] [place] [address] [address] Alis Saha PROF CHEM 8 (BAS METB)on Anion gap [Moles/Vol] 11.7 mmol/L Normal [facility] Comment on above: Performed By: #### B TOWBOAT ENGINEER, BMP, HSTROPN ####[facility] [address]ctuk[address] [place] [address]Dr. Alis Saha Calcium [Mass/Vol] 8.8 mg/dL Normal 8.5-10.1 [facility] Comment on above: Performed By: #### B TOWBOAT ENGINEER, BMP, HSTROPN ####[facility] [address]jhgapv[address] [place] [address]Dr. Alis Saha Chloride [Moles/Vol] 108 mmol/L Critically high 98-107 [facility] Comment on above: Performed By: #### B TOWBOAT ENGINEER, BMP, HSTROPN ####[facility] [address]tojedmdm[address] [place] [address]Dr. Alis Saha CO2 [Moles/Vol] 23.7 mmol/L Normal 21.0-32.0 [facility] Comment on above: Performed By: #### B TOWBOAT ENGINEER, BMP, HSTROPN ####[facility] [address]icyi[address] [place] [address]Dr. Alis Saha Creatinine [Mass/Vol] 0.70 mg/dL Normal 0.55-1.02 [facility] Comment on above: Performed By: #### B TOWBOAT ENGINEER, BMP, HSTROPN ####[facility] [address]uxa[address] [place] [address]Dr. Alis Saha EGFR-AF SINGAPOREAN >60 Normal >=60 [facility] Comment on above: Performed By: #### B TOWBOAT ENGINEER, BMP, HSTROPN ####[facility] [address]thrgfx[address] [place] [address]Dr. Alis Saha EGFR-NON AF SINGAPOREAN >60 Normal >=60 [facility] Comment on above: Performed By: #### B TOWBOAT ENGINEER, BMP, HSTROPN ####[facility] [address]hmusxcu[address] [place] [address]Dr. Alis Saha Glucose [Mass/Vol] 119 mg/dL Critically high 74-106 T [facility] Comment on above: Performed By: #### B TOWBOAT ENGINEER, BMP, HSTROPN ####[facility] Enykx[address]nbjr[address] [place] [address]Dr. Alis Saha Potassium [Moles/Vol] 3.4 mmol/L Critically low 3.5-5.1 [facility] Comment on above: Performed By: #### B TOWBOAT ENGINEER, BMP, HSTROPN ####[facility] X[address]vrewlq[address] [place] [address]Dr. Alis Saha Sodium [Moles/Vol] 140 mmol/L Normal 136-145 [facility] Comment on above: Performed By: #### B TOWBOAT ENGINEER, BMP, HSTROPN ####[facility] [address]lebcs[address] [place] [address]Dr. Alis Saha Urea nitrogen [Mass/Vol] 14.0 mg/dL Normal 7.0-18.0 [facility] Comment on above: Performed By: #### B TOWBOAT ENGINEER, BMP, HSTROPN ####[facility] Hljvvzwmmx[address] [place] [address]Dr. Alis Saha Urea nitrogen/Creatinine [Mass ratio] 20.0 mg/mg Normal [facility] Comment on above: Performed By: #### B TOWBOAT ENGINEER, BMP, HSTROPN ####[facility] [address]jcdmzkl[address] [place] [address]Dr. Alis Saha TROPONIN, HIGH SENSITIVITYon 06-10-2022 HSTROP 9.9 pg/mL Normal 4.0-51.3 [facility] Comment on above: Result Comment: CUT- OFF POINTS HAVE BEEN ESTABLISHED BASED ON THE FOURTH UNIVERSAL DEFINITIONS OF MYOCARDIAL INFARCTION. THE UPPER REFERENCE LIMIT (URL) OF TROPONIN, DEFINED THE 99TH PERCENTILE OF cTnI DISTRIBUTION IN A REFERENCE POPULATION, HAS BEEN CONFIRMED THE DECISION THRESHOLD FOR IA DIAGNOSIS. Performed By: #### B TOWBOAT ENGINEER, BMP, HSTROPN ####[facility] [address]wrb[address] [place], [place] [address]Gt. Alis Saha XR CHEST 1 Von 06-10-2022 [...] by: POPPY GREEN Date: 2022-06-09 23:02 Normal [facility] XR LSPINE MIN 4 VIEWSon [...] JUAN CARLOS VILLATORO Date: 2022-02-02 07:17 Normal [facility] XR CSPINE 2_3 VIEWSon 2021 [...] JUAN CARLOS VILLATORO Date: 2021-10-01 07:13 Normal [facility] CBC AUTO DIFFon 09-30-2021 BASO # 0.0 103/ul Normal 0.0-0.1 [facility] Comment on above: Performed By: #### C BC ####[facility] Nnecbkdlfe[address] [place] [address]Dr. Alis Saha Basophils/100 WBC (Bld) 0.4 % Normal 0.2-2.0 [facility] Comment on above: Performed By: #### C BC ####[facility] [address]in[address] [place], [place] [address]Dr. Alis Saha EO # 0.1 103/ul Normal 0.0-0.7 [facility] Comment on above: Performed By: #### C BC ####[facility] [address]bv[address] [place], [place] [address]Dr. Alis Saha Eosinophils/100 WBC (Bld) 1.6 % Normal 0.9-7.0 [facility] Comment on above: Performed By: #### C BC ####[facility] [address]hvn[address] [place], [place] [address]Dr. Alis Saha Erythrocyte distribution width (RBC) [Ratio] 15.1 % Critically high 11.0-15.0 [facility] Comment on above: Performed By: #### C BC ####[facility] [address] [place], [place] [address]Dr. Alis Saha Hematocrit (Bld) [Volume fraction] 41.9 % Normal 36.0-48.0 [facility] Comment on above: Performed By: #### C BC ####[facility] Yqto[address] [place], [place] [address]Dr. Alis Saha Hemoglobin (Bld) [Mass/Vol] 13.5 g/dL Normal 12.0-16.0 [facility] Comment on above: Performed By: #### C BC ####[facility] [address] [place], [place] [address]DrMiranda Saha IG # 0.01 10e3/ul Normal 0.00-0.03 [facility] Comment on above: Performed By: #### C BC ####[facility] Mnhovhgxio[address] [place], [place] [address]Dr. Alis Saha IG % 0.1 % Normal 0.0-0.5 [facility] Comment on above: Performed By: #### C BC ####[facility] Wyfdrlvjtc[address] [place] [address]DrMiranda Saha LYMPH # 2.3 103/ul Normal 1.2-3.8 [facility] Comment on above: Performed By: #### C BC ####[facility] [address]xwcjw[address] [place] [address]DrMiranda Saha Lymphocytes/100 WBC (Bld) 27.9 % Normal 20.5-60.0 [facility] Comment on above: Performed By: #### C BC ####[facility] [address] [place], [place] [address]DrMiranda Saha MANUAL DIFF REQ NO Normal [facility] Comment on above: Performed By: #### C BC ####[facility] [address] [address]DrMiranda Saha MCH (RBC) [Entitic mass] 28.8 pg Normal 26.7-34.0 [facility] Comment on above: Performed By: #### C BC ####[facility] [address] [place], [place] [address]DrMiranda Saha MCHC (RBC) [Mass/Vol] 32.2 g/dL Normal 29.9-35.2 [facility] Comment on above: Performed By: #### C BC ####[facility] [address] [place], [place] [address]DrMiranda Saha MCV (RBC) [Entitic vol] 89.3 fL Normal 81.0-99.0 [facility] Comment on above: Performed By: #### C BC ####[facility] Eth[address]jc[address] [place], [place] [address]DrMiranda Saha MONO # 0.5 103/ul Normal 0.3-0.8 [facility] Comment on above: Performed By: #### C BC ####[facility] Tol[address] [place], [place] [address]DrMiranda Saha Monocytes/100 WBC (Bld) 5.6 % Normal 1.7-12.0 [facility] Comment on above: Performed By: #### C BC ####[facility] [address] [place] [address]Dr. Alis Saha NEUT # 5.3 103/ul Normal 1.4-6.5 [facility] Comment on above: Performed By: #### C BC ####[facility] [address] [place] [address]Dr. Alis Saha Neutrophils/100 WBC (Bld) 64.4 % Normal 43.0-75.0 [facility] Comment on above: Performed By: #### C BC ####[facility] Nwk[address] [place], [place] [address]Dr. Alis Saha Platelet mean volume (Bld) [Entitic vol] 9.5 fL Normal 9.5-13.5 [facility] Comment on above: Performed By: #### C BC ####[facility] [address] [place], [place] [address]Dr. Alis Saha PLT 316 103/ul Normal 150-450 [facility] Comment on above: Performed By: #### C BC ####[facility] [address] [place], [place] [address]Dr. Alis Saha RBC 4.69 106/ul Normal 4.20-5.40 [facility] Comment on above: Performed By: #### C BC ####[facility] [address] [place], [place] [address]Dr. Alis Saha WBC 8.2 103/ul Normal 4.0-11.0 [facility] Comment on above: Performed By: #### C BC ####[facility] [address] [place], [place] [address]Dr. Alis Saha GLYCOHEMOGLOBIN A1Con 2021 ADA RECOMMENDATION SEE BELOW Normal [facility] Comment on above: Result Comment: ADA RECOMMENDED LIMIT 4.0 - 6.0 ADA THERAPEUTIC TARGET < 7.0 ACTION SUGGESTED > 7.0 Performed By: #### A 1C ####[facility] [address] [place] [id number]. Alis Saha Glucose [Mass/Vol] 128 mg/dL Normal [facility] Comment on above: Performed By: #### A 1C ####[facility] [address] [place] [id number]. Alis Saha HbA1c (Bld) [Mass fraction] 6.1 % Normal 4.5-6.2 [facility] Comment on above: Performed By: #### A 1C ####[facility] [address] [place] [address]Dr. Alis Saha PROF CHEM 8 (BAS METB)on Anion gap [Moles/Vol] 11.5 mmol/L Normal [facility] Comment on above: Performed By: #### T SANA, BMP #### [facility] [address] [address] [address] Alis Saha Calcium [Mass/Vol] 8.7 mg/dL Normal 8.5-10.1 [facility] Comment on above: Performed By: #### T SANA, BMP #### [facility] [address] [address] [address] Alis Saha Chloride [Moles/Vol] 104 mmol/L Normal 98-107 [facility] Comment on above: Performed By: #### T SANA, BMP #### [facility] [address] [address] [address] Alis Saha CO2 [Moles/Vol] 25.5 mmol/L Normal 21.0-32.0 [facility] Comment on above: Performed By: #### T SANA, BMP #### [facility] [address] [address] [address] Alis Saha Creatinine [Mass/Vol] 0.85 mg/dL Normal 0.55-1.02 [facility] Comment on above: Performed By: #### T SH, BMP #### [facility] [address] [address] [address] Alis Saha EGFR-AF SINGAPOREAN >60 Normal >=60 [facility] Comment on above: Performed By: #### T SH, BMP #### [facility] [address] [address] [address] Alis Saha EGFR-NON AF SINGAPOREAN >60 Normal >=60 [facility] Comment on above: Performed By: #### T SH, BMP #### [facility] [address] [place] [address] Dr. Alis Saha Glucose [Mass/Vol] 101 mg/dL Normal 74-106 [facility] Comment on above: Performed By: #### T SH, BMP #### [facility] [address] [place] [address] Dr. Alis Saha Potassium [Moles/Vol] 4.0 mmol/L Normal 3.5-5.1 [facility] Comment on above: Performed By: #### T SH, BMP #### [facility] [address] [place] [address] Dr. Alis Saha Sodium [Moles/Vol] 137 mmol/L Normal 136-145 [facility] Comment on above: Performed By: #### T SH, BMP #### [facility] [address] [place] [address] Dr. Alis Saha Urea nitrogen [Mass/Vol] 13.0 mg/dL Normal 7.0-18.0 [facility] Comment on above: Performed By: #### T SH, BMP #### [facility] [address] [place] [address] Dr. Alis Saha Urea nitrogen/Creatinine [Mass ratio] 15.3 mg/mg Normal [facility] Comment on above: Performed By: #### T SH, BMP #### [facility] [address] [place] [address] Dr. Alis Saha TSHon 09-30-2021 TSH 1.548 uIU/mL Normal 0.358-3.[address] [facility] Comment on above: Performed By: #### T SH, BMP #### [facility] [address] [place] [address] Dr. Alis Saha TSH RANGE SEE BELOW Normal [facility] Comment on above: Result Comment: <0.3 4 UIU/ml HYPERTHYROID 0.34-5.60 UIU/ml EUTHYROID >5.60 UIU/ml HYPOTHYROID Performed By: #### T , [facility] #### [facility] [address] [address] [address] Alis Saha VC CONSULT FOLLOWUPon 2021 VC CONSULT FOLLOWUP Patient: HENRRY MELÉNDEZ Exam Date: 07/19/2021 : 1970 Gender:F Ordering : DR JUAN CARLOS VILLATORO M.D. Admission #: [id number] Family : Order #: [id number] CLICK HERE TO VIEW EXAM RADIOLOGY REPORT [...] Villatoro MD on 07/19/2021 at 15:16 Normal [facility] VC EXT VENOUS RT LIMITEDon 0 07-19-2021 VC EXT VENOUS RT LIMITED Patient: HENRRY MELÉNDEZ Exam Date: 07/19/2021 : 1970 Gender:F Ordering : DR JUAN CARLOS VILLATORO M.D. Admission #: [id number] Family : Order #: [id number] CLICK HERE TO VIEW EXAM RADIOLOGY REPORT [...] to distal calf. Heat induced thrombus in dynamic balancer distal calf 1.4 mm from PTV and [...] vein with occlusion of 2 associated incompetent dynamic balancer veins No deep vein thrombus Dictated by: Juan Carlos Villatoro MD on 07/19/2021 at 14:36 Approved by: Juan Carlos Villatoro MD on 07/19/2021 at 14:37 Normal [facility] VC ENDOVENOUS ABL 1ST V RTon 07-14-2021 VC ENDOVENOUS ABL 1ST V RT Patient: HENRRY MELÉNDEZ Exam Date: 07/14/2021 : 1970 Gender:F Ordering : DR JUAN CARLOS VILLATORO M.D. Admission #: [id number] Family : Order #: [id number] CLICK HERE TO VIEW EXAM RADIOLOGY REPORT PROCEDURE: VEIN CENTER ENDOVENOUS ABLATION FIRST VEIN RIGHT COMPARISON: None. INDICATIONS: Pain co-occurrent and due to varicose veins of bilateral legs I83.813 OPERATIVE REPORT: The risks and benefits of the procedure had been previously discussed, and were rediscussed at length. Informed written consent was obtained by and Thomas jean baptiste. Time out procedure was performed. The right [...] Palacios M.D. on 07/14/2021 at 14:50 Normal [facility] Vital Signs Date Time Vital Sign Value Performing Clinician Facility 10-03-2023 09:53-0400 Diastolic blood pressure 106 mm[Hg] Zulema Orzech [facility] 10-03-2023 09:53-0400 Heart rate 73 /min Zulema Orzech [facility] 10-03-2023 09:53-0400 Respiratory rate 19 /min Zulema Orzech [facility] 10-03-2023 09:53-0400 Systolic blood pressure 146 mm[Hg] Zulema Orzech [facility] 08-09-2023 11:52-0400 Body height 163.83 cm [facility] 08-09-2023 11:52-0400 Body mass index (BMI) [Ratio] 41.8 kg/m2 [facility] 08-09-2023 11:52-0400 Body temperature 96.8 [degF] [facility] 08-09-2023 11:52-0400 Body weight 112.09 kg [facility] 08-09-2023 11:52-0400 Diastolic blood pressure 81 mm[Hg] [facility] 08-09-2023 11:52-0400 Heart rate 80 /min [facility] 08-09-2023 11:52-0400 Systolic blood pressure 114 mm[Hg] [facility] 05-31-2023 10:15-0500 Body height 163.83 cm Slime Talbot Other [facility] 05-31-2023 10:15-0500 Body mass index (BMI) [Ratio] 42.89 kg/m2 Slime Talbot Other [facility] Other 05-31-2023 10:15-0500 Body weight 115.12 kg Slime Talbot Other [facility] 05-31-2023 10:15-0500 Diastolic blood pressure 83 mm[Hg] Slime Talbot Other [facility] 05-31-2023 10:15-0500 Systolic blood pressure 124 mm[Hg] Slime Talbot Other [facility] 04-20-2023 11:15-0500 Body height 163.83 cm Slime Talbot Other [facility] Other 04-20-2023 11:15-0500 Body mass index (BMI) [Ratio] 42.58 kg/m2 Slime Talbot Other [facility] Other 04-20-2023 11:15-0500 Body weight 114.31 kg Slime Talbot Other [facility] Other 04-20-2023 11:15-0500 Diastolic blood pressure 88 mm[Hg] Slime Talbot Other [facility] Other 04-20-2023 11:15-0500 Systolic blood pressure 138 mm[Hg] Slime Talbot Other [facility] Other 02-21-2023 11:15-0400 Body height 163.83 cm Slime Talbot Other [facility] Other 02-21-2023 11:15-0400 Body mass index (BMI) [Ratio] 41.91 kg/m2 Slime Talbot Other [facility] Other 02-21-2023 11:15-0400 Body weight 112.49 kg Slime Talbot Other [facility] Other 02-21-2023 11:15-0400 Diastolic blood pressure 86 mm[Hg] Slime Talbot Other [facility] Other 02-21-2023 11:15-0400 Systolic blood pressure 130 mm[Hg] Slime Talbot Other [facility] Other 12-02-2022 09:55-0400 Body height 162.56 cm Slime Talbot Work Phone: [facility] [employer] [address] DO Work Phone: 12-02-2022 09:55-0400 Body mass index (BMI) [Ratio] 41.2 kg/m2 Slime Talbot Work Phone: [facility] [employer] DO Work Phone: 12-02-2022 09:55-0400 Body surface area Derived from formula 2.11 m2 Slime Talbot Work Phone: [facility] [place] [address] DO Work Phone: 12-02-2022 09:55-0400 Body weight 108.86 kg Slime Talbot Work Phone: [facility] [employer] DO Work Phone: 12-02-2022 09:55-0400 Diastolic blood pressure 62 mm[Hg] Slime Talbot Work Phone: [facility] [employer] [address] DO Work Phone: 12-02-2022 09:55-0400 Heart rate 60 /min Slime Talbot Work Phone: [facility] [employer] DO Work Phone: 12-02-2022 09:55-0400 Systolic blood pressure 118 mm[Hg] Slime Talbot Work Phone: [facility] [employer] DO Work Phone: 08-11-2022 13:37-0400 Diastolic blood pressure 86 mm[Hg] Slime Talbot Work Phone: [facility] 250 DO Work Phone: 08-11-2022 13:37-0400 Systolic blood pressure 137 mm[Hg] Slime Talbot Work Phone: [facility] 250 DO Work Phone: 08-11-2022 13:26-0400 Heart rate 62 /min Slime Talbot Work Phone: [facility] 250 DO Work Phone: 08-11-2022 13:24-0400 Diastolic blood pressure 88 mm[Hg] Slime Talbot Work Phone: [facility] 250 DO Work Phone: 08-11-2022 13:24-0400 Systolic blood pressure 132 mm[Hg] Slime Talbot Work Phone: [facility] 250 DO Work Phone: 08-11-2022 13:23-0400 Body height 162.56 cm Slime Talbot Work Phone: [facility] 250 DO Work Phone: 08-11-2022 13:23-0400 Body mass index (BMI) [Ratio] 40.85 kg/m2 Slime Talbot Work Phone: [facility] 250 DO Work Phone: 08-11-2022 13:23-0400 Body surface area Derived from formula 2.11 m2 Slime Talbot Work Phone: [facility] 250 DO Work Phone: 08-11-2022 13:23-0400 Body weight 107.96 kg Sliem Talbot Work Phone: [facility] 250 DO Work Phone: 08-11-2022 13:23-0400 Diastolic blood pressure 90 mm[Hg] Slime Talbot Work Phone: [facility] 250 DO Work Phone: 08-11-2022 13:23-0400 Systolic blood pressure 140 mm[Hg] Slime Talbot Work Phone: [employer] 250 DO Work Phone: Encounters Encounter Date Encounter Type Care Provider Facility Start: 10-03-2023 End: 10-04-2023 ambulatory Zulema X Orzech Facility:[facility] Start: 10-03-2023 End: 10-03-2023 Patient encounter procedure Zulema X Orzech [facility] Start: 08-10-2023 ambulatory Zulema Orzech Facility: [facility] Start: 08-09-2023 End: 08-09-2023 Departed Referred MD Slime Talbot Work Phone: [facility] [place] Work Phone: Start: 08-09-2023 End: 08-09-2023 ambulatory Slime Talbot [facility] Work Phone: Start: 08-09-2023 End: 08-09-2023 Patient encounter procedure [facility] Work Phone: Start: 08-03-2023 End: 08-03-2023 ambulatory [facility] Work Phone: Start: 08-03-2023 End: 08-03-2023 Patient encounter procedure [facility] Work Phone: Start: 05-31-2023 End: 05-31-2023 ambulatory Slime Talbot Other [facility] Other Start: 05-31-2023 Office outpatient vi sit 15 minutes Slime Talbot [facility] Start: 05-31-2023 End: 05-31-2023 Patient encounter procedure [facility] Work Phone: Start: 05-25-2023 End: 05-26-2023 ambulatory ZOLTAN LESLIEGINA Not Available Start: 04-24-2023 End: 04-24-2023 ambulatory Slime Talbot Other [facility] Other Start: 04-24-2023 Telephone encounter Slime Talbot [facility] Start: 04-20-2023 End: 04-20-2023 ambulatory Slime Talbot Other [facility] Other Start: 04-20-2023 Office outpatient vi sit 15 minutes Slime Talbot [facility] Start: 03-28-2023 (Televisit) Televisit Slime Gong [facility] Start: 03-28-2023 End: 03-28-2023 ambulatory Slime Talbot Other [facility] Other Start: 02-21-2023 End: 02-21-2023 ambulatory Slime Talbot Other [facility] Other Start: 02-21-2023 Office outpatient vi sit 25 minutes Slime Talbot [facility] Start: 12-02-2022 ambulatory MD SLIME TALBOT Facility: Start: 12-02-2022 Office outpatient vi sit 15 minutes Slime Talbot Work Phone: [facility] 250 DO Work Phone: Start: 08-18-2022 End: 08-18-2022 ambulatory Slime Talbot Other [facility] Other Start: 08-18-2022 Telephone encounter Slime Talbot [facility] Start: 08-11-[address] [place] Facility: Start: 08-11-2022 Office consultation new/estab patient 60 min Sliem Talbot Work Phone: [facility] 250 DO Work Phone: Start: 08-05-2022 End: 08-05-2022 ambulatory Slime Talbot Other [facility] Other Start: 08-05-2022 Nursing evaluation o f patient and report Slime Talbot [facility] Start: 07-04-2022 End: 07-04-2022 ambulatory Slime Talbot Other [facility] Other Start: 07-04-2022 Telephone encounter Slime Talbot [facility] Start: 06-27-2022 End: 06-28-[address] SLIME TALBOT Facility:[facility] Start: 06-22-2022 End: 06-22-2022 ambulatory Slime Talbot Other [facility] Other Start: 06-22-2022 Telephone encounter Slime Talbot [facility] Start: 06-14-2022 End: 06-14-2022 ambulatory Slime Talbot Other [facility] Other Start: 06-14-2022 Telephone encounter Slime Talbot [facility] Start: 06-12-2022 End: 06-12-2022 ambulatory [...] Procedure Procedure Detail Performing Clinician Cholecystectomy Slime wilde Work Phone: Cholecystectomy Zulema Orzec h Hysteroscopy Zulema Orzech Ligation of varicose vein Otis Talbot Work Phone: Stripping of vein Zulema Orz ech Total colonoscopy Slime mancuso Work Phone: Comment on above: over 10 years ago; Plan of Treatment Date Care Activity Detail Author Start: 08-09-2023 Bacteria identified in Urine by Culture [facility] Start: 08-09-2023 Patient referral [facility] Work Phone: Start: 12-02-2022 FUV, Provider: [place], Status: Pen, Time: 9:40 AM FUV, Provider: [place], Status: Pen, Time: 9:40 AM [facility] 250 DO Work Phone: Patient referral [facility] Work Phone: Payers Date Payer Category Payer Unknown [id number] 1970 Unknown [id number] 2.16.84 [id number] 1970 Unknown [id number] 2.16.84 [id number] 1970 Unknown [id number] 2.16.84 [id number] 1970 Unknown [id number] 2.16.84 0.1.394663.3.579.2.593 1970 Unknown [id number] 2.16.84 0.1.444211.3.579.2.593 1970 Unknown [id number] 2.16.84 0.1.046024.3.579.2.593 1970 Unknown [id number] 2.16.84 0.1.709856.3.579.2.593 1970 Unknown [id number] 2.16.84 0.1.744197.3.579.2.593 1970 Unknown [id number] 2.16.84 0.1.252502.3.579.2.593 1970 Unknown [id number] 2.16.84 0.1.228048.3.579.2.593 1970 Unknown [id number] 2.16.84 0.1.030967.3.579.2.593 1970 Unknown [id number] 2.16.84 0.1.658673.3.579.2.593 1970 Unknown [id number] 2.16.84 0.1.908080.3.579.2.593 1972 Unknown [id number] 2.16.84 0.1.870764.3.579.2.593 1972 Unknown [id number] 2.16. 840.1.577270.3.579.2.356 1970 Unknown [id number] 2.16. 840.1.792598.3.579.2.356 1970 Unknown [id number] 2.16.840 .1.926782.3.579.2.1259 1972 Unknown [id number] 2.16.840 .1.279696.3.579.2.1259 1970 Unknown [id number] 2.16.8 40.1.754587.3.579.2.727 1957 Unknown [id number] Unknown [employer] Social History Date Type Detail Facility Unknown if ever smoked [facility] Other Sex Assigned At [facility] Caffeine use Caffeine use -[facility] [employer] 250 DO Work Phone: Comment on above: pop all day; 5-10 cigarettes jessi y; Start: 1970 Sex Assigned At Female F [facility] Start: 10-03-2023 Tobacco smoking status Heavy t obacco smoker (finding) [facility] Functional Status Date Assessment Result Facility 10-03-2023 Functional Status N/A [facility] Clinical Notes 09-30-2021 to 10-06-2023 Note Date & Type Note Facility 10-06-2023 Note Chief Complaint referral HPI Staff Referral for dysuria, left flank pain and hematuria by Dr. Talbot. Pt was seen in [facility] ED 08/11/23 for urinary frequency and low back pain that had been ongoing at the time for a week. At that time she had been treated by PCP with [address] done 08/11/23 showed small non obstructing bilateral kidney stones and 2 small benign adenomas in the left adrenal gland. Pt. states she does have a H/O kidney stones. Pt. states she has always passed her kidney stones. Dysuria: no Incomplete bladder emptying: occasionally Hematuria: UA show trace today. Pt. states occasionally will have dark urine and will see pink in the tp Frequency: every hour or more Urgency: occasionally Nocturia: 1x Stream: good stream Post void dripping: no Wearing pads/ Depends: yes, light liner Urge incontinence: occasionally Stress incontinence: yes Incontinence without Sensory Awareness: no Abdominal pain: lower abd pain when having flank pain Flank pain: Pt. states has had flak pain in the past History of Present Illness I have reviewed and verified the staff HPI to be accurate for this encounter. Portions of this record may have been created with voice recognition artificial intelligence software, specifically [employer], [employer] and or [employer]. Substitutions may have occurred due to the inherent limitations of voice recognition and artificial intelligence software. Review of Systems PHQ Score Initial Depression Screen Score: 0 SCORE Physical Exam Vitals & Measurements HR: 73(Peripheral) RR: 19 BP: 146/106 HT: 64 in HT: 163 cm WT: 113.5 kg WT: 249.7 lb BMI: 42.72 General: Well developed, well nourished, in no acute distress. Genitourinary: Flank Pain: none. Bladder: nonpalpable. Assessment/Plan 1. Gross hematuria (R31.0: Gross hematuria) Patient notes that she is having intermittent gross hematuria with and without dysuria. UA today with trace intact blood, no sign of infection. Last episode several weeks ago. CT 08/11/2023-small nonobstructing bilateral stones Denies noticing any recent stone passing. Discussed potential etiologies and implications of hematuria with patient. These include: trauma (recent catheterization, etc), Tumor (renal, urothelial, prostatic, urethral, etc), infection/inflammation (UTI, cystitis, recent catheterization, interstitial cystitis, radiation), stones, period/menses (pseudohematuria), obstructive uropathy (urolithiasis, stricture, etc), nephritis (glomeurlonephritis, Alport's syndrome, Johnson's IgA nephropathy, interstitial nephritis, etc), Tuberculosis, thrombosis (renal vein thrombosis, renal infarct, pseudoaneurysm, etc) and hematologic (bleeding disorders, anticoagulation, sickle cells disease, etc) Patient is a smoker, which puts her at higher risk. Given that we have not been able to confirm actively passing stone or active infection, further workup is needed. Patient agrees to move forward with workup. The risks and benefits for cystoscopy have been discussed. The risks include bleeding, infection, and irritation of the bladder and urinary channel, among others. The patient, after being informed of procedural details and after questions have been answered, wishes to proceed. Will order Local anesthesia. -Send urine today for cytology and culture. -CT urogram ordered. -Schedule cystoscopy 2. Adrenal mass (E27.8: Other specified disorders of adrenal gland) CT 08/11/2023-2 benign adenomas in the left adrenal gland. This appears to be a new finding. Discussed imaging results with patient. Will further functionality of adenomas with lab work/dexamethasone. Patient sent with order dexamethasone prescription sent to pharmacy. Will call patient with results, may require referral to endocrinology. -Obtain lab work, dexamethasone testing. 3. Dysuria (R30.0: Dysuria) [facility] ER 08/11/2023-urinary frequency, low back pain x 1 week. Also notes having dysuria for several months with multiple negative cultures. CT 08/11/2023-small nonobstructing bilateral stones and 2 benign adenomas in the left adrenal gland. UA today without signs of infection, but patient does note that she is having some dysuria at this time as well as mild frequency urgency. She denies constipation, she is not diabetic. She does admit to drinking about [address] daily with minimal intake of other fluids. We discussed bladder irritants and how these may contribute to urinary symptoms. Recommend behavioral modification. -Send urine for culture -Cystoscopy to evaluate hematuria 4. Kidney stones (N20.0: Calculus of kidney) CT 08/11/2023-small nonobstructing bilateral stones Patient has known for years that she has had stones. Does get intermittent flank pain. Does not believe she has ever passed a stone. Has never required surgical intervention. Discussed generalized stone prevention - pt encouraged to increase fluid intake so jah (more content not included)... [facility] Comment on above: Result Comment: Elec tronically Signed By: JOHNNA Joya APRN, Zulema Lema\.br\Date and Time Signed: 10/06/23 12:54 EDT 10-03-2023 Evaluation + Plan note Diagnostic Tests PendingCortisol 10/03/23Lab Miscellaneous-LC 10/03/23Lab Miscellaneous-LC 10/03/23 [facility] 05-31-2023 Evaluation note Encounter Date Diagnosis Assessment Notes May, Pain, joint, knee, left (ICD-10 - M25.562) Pt declines PT at this time. Will attempt MRI. She declines Ortho referral at this time as well. MRI order sent to [facility]. work note given for restrictions as she is unable to climb a lot of stairs due to pain. May, Uncontrolled hypertension (ICD-10 - I10) Reviewed labs w pt. No hypokalemia or other electrolyte abnormalities noted in Apr. 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 Mar, Leg pain, left (ICD-10 - M79.605) Discussed concern for DVT. US scheduled for today. [facility] Other 11-07-2023 Evaluation note* Encounter Date Diagnosis [...] verbalized understanding and agreement with treatment plan. [facility] Other 10-03-2023 Evaluation note* Encounter Date Diagnosis [...] Advised she limit NSAIDs and added omeprazole [facility] Other 03-30-2023 Evaluation note* Encounter Date Diagnosis Assessment Notes Treatment Notes Treatment Clinical Notes Jul, Uncontrolled hypertension (ICD-10 - I10) [facility] Other 03-17-2023 Evaluation note* Encounter Date Diagnosis Assessment Notes Treatment Notes Treatment Clinical Notes Jul, Dysuria (ICD-10 - R30.0) [email or web address] Other [id number] NotePROCEDURE: XR ANKLE LT MIN 3 V, [...] Electronically authenticated by: SARKIS PALACIOS Date: 2022-05-06 07:13[facility]12-16-2022 NotePROCEDURE: XR ANKLE LT MIN [...] Electronically authenticated by: SARKIS PALACIOS Date: 2022-05-06 07:13[facility]05-12-2022 NotePROCEDURE: XR ELBOW LT MIN 3 VIEWS HISTORY: Pain of left elbow joint , acute; limited range of motion COMPARISON: None. FINDINGS: BONES:No fracture, acute abnormality, or significant arthropathy. SOFT TISSUES:No visible soft tissue swelling. EFFUSION:None visible. OTHER: Negative. IMPRESSION: 1. Normal examination. Electronically authenticated by: SARKIS PALACIOS Date: 2021-09-30 16:50[facility] complaint Narrative - ReportedHENRRY MELÉNDEZ is being seen for a consultation for blood pressure issues.-[facility] [address] DO Work Phone: Evaluation noteNo InformationNortRiddle Hospital [facility] Other Evaluation noteNo assessment information available [facility] Work Phone: Evaluation note* Diagnosis Onset Date Resolution Status Dysuria acute Hematuria acute Left flank pain acute [facility] Work Phone: History general Narrative [...] LYSIS OF ADHESIONS 09/2015 Hospitalization History SEE [facility] Other History of Present illness Narrative* Patient [...] to retrieve her recent Holter monitor from [employer] * 3. I suggested a trial of [...] diet * 6. Follow-up in 4 months [employer] Work Phone: History of Present [...] diet * 5. Follow-up in 4 months [facility] 250 DO Work Phone: Hospital course Narrative No data available for this section [facility] Hospital Discharge instructionsAmbulatory Orders* Referral to Urology Time Frame: 08/09/23, Location: None [facility] Work Phone: Hospital Discharge instructions No data available for this section [facility] progress note No data available for this section [facility] Summary Purpose Family History No Family [...] ure of right hand (M72.0) Referral Organization [facility] C sam Referring Provider First Name Slime Referring Provider Last Name Antione Referring Provider Specialty [facility] Referred Organization [facility] Referred Provider Deisi Branch Referred Address [address] [place] [address] [place], [place],[address] Referred Provider Specialty Orthopedic S urgery Referral [...] and content) DATE CREATED AUTHOR [facility]/30/2022 [facility] DATE CREATED AUTHOR AUTHOR'S ORGANIZ ATION 12/03/2022 [facility] DATE CREATED AUTHOR AUTHOR'S ORGANIZ ATION 12/03/2022 [employer] DATE CREATED AUTHOR AUTHOR'S ORGANIZ ATION 05/29/2023 [facility] EPIC DATE CREATED AUTHOR AUTHOR'S ORGANIZ ATION 08/12/2023 [facility] DATE CREATED AUTHOR AUTHOR'S ORGANIZ ATION 10/09/2023 [facility] REASON FOR VISIT (unrecogniz ed section [...] BE BASED ON THE PRIMARY CLINICAL RECORDS. [employer] provides no warranty or guarantee of the accuracy or completeness of information in this document.
== END 2023-10-14 08:07 | disposition home or self-care (01) ==
LOC: LAB 08:06
PROVIDERS: PCP Family Medicine
DX: E27.8 Other specified disorders of adrenal gland (principal)
CPT/HCPCS: 36415; 82088; 82533; 83835; 84244

== ENCOUNTER 2023-11-01 09:56 | Outpatient (OUT) | payer OTHER, SELFPAY ==
--- NOTE | 2023-11-01 10:00 | CT_ITS ---
[address] [address] Patient Name: HENRRY MELÉNDEZ MRN: [facility]:[id number] date: 1970 Sex: F Assigned Patient Location: CT Current Patient Location: CT Accession/Order Number: [id number] Exam Date: 11/01/2023 10:15 Report Date: 11/03/2023 10:18 At the request of: USHA PUGA Procedure: CT abdomen pelvis wo/w con EXAMINATION: CT abdomen pelvis wo/w con HISTORY: Gross Hematuria R31.0 COMPARISON: 08/11/2023 TECHNIQUE: Axial, Coronal, and Sagittal images were created without and with non-ionic intravenous contrast material. Dose reduction techniques were achieved by using automated exposure control and/or adjustment of mA and/or kV according to patient size and/or use of iterative reconstruction technique. FINDINGS: LUNG BASES: No visible pulmonary or pleural disease. LIVER: Diffuse hypoattenuation suggesting hepatic steatosis. Scattered punctate hypodensities nonspecific BILIARY: Surgical clips from cholecystectomy PANCREAS: No lesion, fluid collection, ductal dilatation, or atrophy. SPLEEN: No enlargement or focal lesion. ADRENALS: Stable left adrenal nodule KIDNEYS: No mass, obstruction, or calcification. BOWEL/MESENTERY: Minimal colonic diverticulosis without evidence of acute diverticulitis. Nonobstructive bowel gas pattern. Normal appendix. AORTA/VASCULAR: No aortic aneurysm. Mild to moderate calcific atherosclerosis RETROPERITONEUM: No mass or adenopathy. LYMPH NODES: No adenopathy. URINARY BLADDER: No visible focal wall thickening, lesion, or calculus. PELVIC ORGANS: Focal hypodensity in the cervix measuring 2.8-2.1 cm, axial image 129 ABDOMINAL WALL: No mass or hernia. BONES: No bony lesion or fracture. OTHER: Negative. CT/CT abdomen pelvis wo/w con IMPRESSION: No urinary tract abnormality to explain the patient's hematuria 2.7 cm hypodense lesion in the cervix. Transabdominal and transvaginal pelvic ultrasound is recommended for further characterization Electronically authenticated by: JUAN CARLOS VILLATORO Date: 11/03/2023 10:18
== END 2023-11-01 09:57 | disposition home or self-care (01) ==
LOC: CT 09:56
PROVIDERS: PCP Family Medicine; Visit Provider Nurse Practitioner Family
DX: R31.0 Gross hematuria (principal)
CPT/HCPCS: 74178; Q9967

== ENCOUNTER 2023-11-02 16:54 | Outpatient (RCR) | payer OTHER, SELFPAY | END 2023-11-03 15:56 | disposition home or self-care (01) | LOC: PT 16:54 | PROVIDERS: PCP Family Medicine; Visit Provider Family Medicine | DX: R26.89 Other abnormalities of gait and mobility (principal) | CPT/HCPCS: 97161 ==

== ENCOUNTER 2023-12-19 09:23 | Outpatient (OUT) | payer OTHER, SELFPAY ==
--- NOTE | 2023-12-19 09:25 | US_ITS ---
[address] [address] Patient Name: HENRRY MELÉNDEZ MRN: [id number] date: 1970 Sex: F Assigned Patient Location: [facility] Current Patient Location: [facility] Accession/Order Number: [id number] Exam Date: 12/19/2023 09:25 Report Date: 12/19/2023 15:37 At the request of: KATE LOGAN Procedure: US pelvis w/ transvaginal EXAMINATION: US pelvis w/ transvaginal HISTORY: MASS OF CERVIX, ABNORMAL CT COMPARISON: CT exam 11/01/2023 FINDINGS: Transabdominal and transvaginal images The uterus is normal in size, contour and myometrial echotexture measuring 7.6 x 3.2 x 4.3 cm. Anteverted, anteflexed. Identified in the cervix is an area of soft tissue hyperechogenicity measuring 1.0 x 0.9 x 0.9 cm. Endometrium measures 5 mm, normal. The right ovary measures 1.6 x 1.4 x 1.6 cm. Poorly visualized The left ovary is not visualized US/US pelvis w/ transvaginal IMPRESSION: 1 cm hyperechogenic lesion in the cervix, nonspecific Electronically authenticated by: JUAN CARLOS VILLATORO Date: 12/19/2023 15:37
--- OUTSIDE RECORDS SUMMARY | 2023-12-19 09:32 | XMS_ITS | CCD ---
Author Organization [facility] CliniSyct Care Team Providers Care Tar Distributor Operator Name Role Phone SHAUNA, DR JUAN CARLOS Mayberry Consulting Unavailable TALBOT, DR SLIME Johnson Primary Care Unavailable TALBOT, DR SLIME Johnson Attending Unavailable TALBOT, DR SLIME Johnson Admitting Unavailable ZIJENSEN, DR SARKIS Stevens Consulting Unavailable TALBOT, DR LSIME Johnson Consulting Unavailable HORTENCIA, MG Consulting Unavailable [...] Johnson Attending Unavailable TALBOT, DR SLIME Johnson Admtariq Unavailable TALBOT, DR SLIME Johnson Primary Care [...] WEST, DR JUAN CARLOS Mayberry Admtariq Unavailable ZIEBER, DR SARKIS Stevens Consulting Unavailable [...] ELY Consulting Unavailable DIAB, ELY Attending Unavailable DANIELLE, ELY Admitting Unavailable ANTIONE, DR SLIME Johnson Primary Care Unavailable HAY, DR GERONIMO Consulting Unavailable HAY, DR GERONIMO Attending Unavailable HAY, DR GERONIMO Admitting Unavailable ANTIONE, DR SLIME Johnson Primary Care Unavailable POPPY GREEN Consulting Unavailable Slime Talbot Unavailable Slime Talbot Unavailable Unavailable Unavailable Dr. Bonny Meyer Referring Unavaila kendrick Meyer, Dr. Bethea Attending Unavaila MD SLIME Jules Primary Care Unava MD SLIME Hurtado Primary Care Unava illaci Meyer, Dr. Bethea Referring Unavaila kendrick Meyer, Dr. Bethea Attending Unavaila MD Slime Jules Attending Provider Slime Talbot Admitting Unavailable Slime Talbot Attending Unavailable SLIME TALBOT Primary Care Physician Slime Talbot MD Primary Care Provider [phone] BONNY MEYER Attending Unavailable SLIME TALBOT Primary Care Unavailable Zulema Joya Attending Unavailable Zulema Joya Attending Unavailable SLIME TALBOT Referring Unavailable Gemma Blanco Attending Unavailable Gemma Blanco Referring Unavailable Gemma Blanco Admitting Unavailable ZOLTAN HENDERSON Attending Unavailable ZOLTAN HENDERSON Referring Unavailable KATE LOGAN Attending Unavailable Allergies Allergy Classification Reported Allergen(s) Allergy Type Date of Onset Reaction(s) Facility Cephalosporins (antibiotic) (1 source) cefdinir Drug Allergy 08-08-19 24 Unknown [facility] Opioid Agonists (1 source) Codeine Drug Allergy 05-25-19 24 Hives, Unknown [facility] Work Phone: Quinolones (antibiotic) (1 source) Ciprofloxacin Drug Allergy 11-03-19 24 Other [facility] (5 sources) Cefuroxime Drug Allergy Unknown [facility] Other (15 sources) Codeine; Translations: [CODEINE] Drug Allergy 05-25-19 24 Unknown, [facility] (5 sources) Pseudoephedrine Drug Allergy Unknown [facility] Other (2 sources) cefdinir; Translations: [cefdinir] Drug Allergy 08-08-19 24 Other [facility] (6 sources) Ceftin *CEPHALOSPORINS* Propensity to adverse reactions 02-12-20 13 Unknown [facility] Other (6 sources) Pseudoephedrine HCl *NASAL AGENTS - SYSTEMIC AND T Propensity to adverse reactions 02-12-20 13 Unknown [facility] Other (3 sources) Cephalosporins (Antibiotic) Allergy to substance 05-31-19 [facility] (3 sources) Pseudoephedrine HCl *NASAL AGE Allergy to substance 05-31-19 [facility] (3 sources) Acetaminophen / Dextromethorphan / Doxylamine / Pseudoephedrine; Translations: [APAP/dextromethorp dwyer/doxylamine/PSE] Drug Allergy Unknown (qualifier value) [facility] (4 sources) Ciprofloxacin; Translations: [ciprofloxacin] Drug Allergy 11-03-19 Unknown (qualifier value) [facility] (1 source) Acetaminophen; Translations: [acetaminophen] Drug Allergy [facility] Repository Medications Current Medications Medication Drug Class(es) Dates Sig (Normalized) Sig (Original) amLODIPine 10 mg oral tablet (10 sources) Dihydropyridine Calcium Channel Taryn Start: 06-17-2022 End: 11-03-2023 take 1 tablet by mouth once daily amLODIPine (Norvasc) 10 mg tablet Take 1 tablet (10 mg) by mouth once daily. 02/18/2023 11/03/2023 Discontinued (Discontinued by another clinician) amoxicillin 875 mg / clavulanate 125 mg [...] May, Active dexamethasone 1 mg oral tablet (3 sources) Corticosteroid Start: 10-03-2023 take 1 tablet by mouth once in the evening dexamethasone 1 mg oral tablet 1 mg = 1 tab(s), Oral, Once, Take at 11 PM; Have cortisol level drawn at 8 AM the next day, # 1 tab(s), Refills(s) 0, Pharmacy: [facility], 163, cm, 10/03/23 10:16:00 EDT, Height/Length Dosing, 113.5, kg, 10/03/23 10:16:00 EDT, Weight Dosing Start Date: 10/09/23 Status: Ordered famotidine 20 mg oral tablet (2 sources) Histamine-2 Receptor Antagonist Start: 10-03-2023 take 20 mg by mouth once before mealtime Pepcid AC 20 mg, Oral, Once Start Date: 10/03/23 Status: Ordered ferrous sulfate 325 mg oral tablet (5 sources) take 1 tablet by mouth every twenty-four hours losartan potassium 50 mg oral tablet (18 sources) Angiotensin 2 Receptor Taryn Start: 07-15-2023 End: 11-03-2023 losartan 50 mg Tab 50 mg = 1 tab(s) Start Date: 10/03/23 Status: Ordered Start: 06-17-2022 take 1 tablet by aida th once daily Losartan Potassium 50 MG Oral Tablet TAKE ONE TABLET BY MOUTH ONCE DAILY Quantity: 30 Refills: 0 Ordered: 18-Jul-2022 DO Start : 17-Jun-2022 Active meclizine hydrochloride 12.5 mg oral tablet (5 sources) Antiemetic take 1 tablet by mouth every twelve hours methylPREDNISolone 4 mg oral tablet (10 sources) Corticosteroid Start: 24 hr metoprolol succinate 25 mg extended release oral tablet (15 sources) beta-Adrenergic Taryn Start: End: 06-14-2 025 take 1 tablet by mouth once daily metoprolol 25 mg ER Tab 25 mg = 1 tab(s), Oral, Daily Start Date: 10/03/23 Status: Ordered 24 hr mirabegron 50 mg extended release oral tablet (1 source) beta3-Adrenergic Agonist Start: 024 take 1 tablet by mouth once daily mirabegron 50 mg oral tablet, extended release 50 mg = 1 tab(s), Oral, Daily, # 30 tab(s), Refills(s) 11, Pharmacy: [facility], 163, cm, 10/03/23 10:16:00 EDT, Height/Length Dosing, 113.5, kg, 10/03/23 10:16:00 EDT, Weight Dosing Start Date: 11/07/23 Status: Ordered omeprazole 40 mg delayed release oral capsule (8 sources) Proton Pump Inhibitor Start: take 1 capsule by mouth once daily [...] 20 mg oral tablet (2 sources) Start: 023 take 2 tablets by mouth every twenty-four hours predniSONE 20 MG 2 tablets Orally Once a day for 5 days Feb, Active spironolactone 25 mg oral tablet (19 sources) Aldosterone Antagonist Start: End: 025 take 1 tablet by mouth once daily spironolactone (Aldactone) 25 mg tablet Indications: Essential hypertension Take 1 tablet (25 mg) by mouth once daily. 90 tablet 3 11/03/2023 11/02/2024 Active Start: 05-14-2022 take 1 tablet by aida [...] Orally qhs prn for 15 days Active valsartan 160 mg oral tablet (1 source) Angiotensin 2 Receptor Taryn Start: 11-03-2023 End: 11-02-2024 take 1 tablet by mouth once daily valsartan (Diovan) 160 mg tablet Indications: Essential hypertension Take 1 tablet (160 mg) by mouth once daily. 90 tablet 3 11/03/2023 11/02/2024 Active Problems Active Problems Problem Classification Problem Date Documented Da te Episodic/Chronic Abdominal pain (15 sources) Pain in female pelvis; Translations: [Pelvic and perineal pain] 08-09-2023 Episodic Cardiac dysrhythmias (7 sources) Palpitations; Translations: [Palpitations] Onset: 3 11-03-2023 Episodic Conditions associated with dizziness or vertigo (11 sources) Benign paroxysmal positional vertigo; Translations: [Benign paroxysmal vertigo, bilateral] Episodic Coronary atherosclerosis and other heart disease (13 sources) Coronary arteriosclerosis; Translations: [Atherosclerotic heart disease of [place] coronary artery without angina pectoris] 09-28-2023 Chronic Diabetes mellitus without complication (12 sources) Other abnormal glucose; Translations: [Hyperglycemia] Onset: 2 Episodic Esophageal disorders (9 sources) Gastroesophageal reflux disease without esophagitis; Translations: [Gastro-esophageal reflux disease without esophagitis] Chronic Essential hypertension (20 sources) Essential (primary) hypertension; Translations: [Hypertensive disorder] Onset: 3 Chronic Genitourinary symptoms and ill-defined conditions (14 sources) Dysuria; Translations: [Dysuria] Onset: 4 Episodic Osteoarthritis (1 source) Primary osteoarthritis, left ankle and foot; Translations: [PRIMARY OSTEOARTHRITIS LT ANK FOOT] Onset: 2 Chronic Other aftercare (1 source) Other long-term (current) drug therapy; Translations: [OTH HALFWAY CURRENT DRUG THERAPY] Onset: 3 Episodic Other [...] source) Pain in left leg Episodic Other diseases of bladder and urethra (1 source) Detrusor overactivity; Translations: [Overactive bladder] Onset: 4 Chronic Other female genital disorders (11 sources) Abnormal uterine bleeding; Translations: [Abnormal uterine and vaginal bleeding, unspecified] Chronic Other lower respiratory disease (5 sources) Shortness of breath; Translations: [SHORTNESS OF BREATH] Onset: 3 Episodic Other lower respiratory disease (4 sources) Dyspnea; Translations: [Other respiratory abnormalities] Onset: 4 11-03-2023 Episodic Other non-traumatic joint disorders (4 sources) [...] Episodic Other nutritional; endocrine; and metabolic disorders (4 sources) Body mass index 40+ - severely obese; Translations: [Morbid obesity] Onset: 4 11-03-2023 Chronic Other nutritional; endocrine; and metabolic disorders (2 sources) Body mass index (BMI) 40.0-44.9, adult; Translations: [Body mass index (BMI) 40.0-44.9, adult (Multi)] Onset: 4 Chronic Other nutritional; endocrine; and metabolic disorders [...] thrombosis] Onset: 2 Episodic Residual codes; unclassified (13 sources) Obstructive sleep apnea syndrome; Translations: [Obstructive sleep apnea (adult) (pediatric)] 09-28-2023 Chronic Spondylosis; intervertebral disc disorders; other back problems (20 sources) Cervicalgia; Translations: [Radiculopathy, cervical region] Onset: 2 Episodic Sprains and strains (11 sources) Sprain of left ankle; Translations: [Sprain of other ligament of left ankle, initial encounter] Episodic Substance-related disorders (7 sources) Nicotine dependence, cigarettes, uncomplicated; Translations: [Smoker] Onset: 3 11-03-2023 Chronic Comment on above: 5-10 cigarettes jessi y; Unclassified (1 source) CONTACT W/AND (SUSP) EXPOS COVID-19; Translations: [CONTACT W/AND (SUSP) EXPOS COVID-19] Onset: 3 Unclassified (3 sources) LOW BACK PAIN, UNSPECIFIED; Translations: [LOW BACK PAIN, UNSPECIFIED] Onset: 2 Unclassified (2 sources) COUGH, UNSPECIFIED; Translations: [COUGH, UNSPECIFIED] Onset: Past or Other Problems Problem Classification Problem [...] Name Value Interpretation Reference Range Facility Urine Cytology ([facility])on 0 11-12-2023 Microscopic exam Cytology (U) [Interp] Diagnosis Info Invalid Interpretation Code [facility] Comment on above: Result Comment: A:Ur ine,Cystoscopy:Cystoscopy Interpretation - MicroScopic Description - Adequacy - Gross Description Site ID:A color Light Yellow fixative Alcohol Specimen designated Cystoscopy received in alcohol preservative and labeled with the patient?s name, consists of 100ml clear light yellow fluid. Electronically signed by : on: 11/12/2023 10:13:54 Performed By: #### 1 [id number] #### [facility] [address] [place] [address] Coding Summary.on 11-09-2023 Coding Summary. FKDLNwvl69DFh6cVw+PG hl YWQ+OT1GCICxE53qsZLbrT 7iO7MKBQsRQnqlYZZVNHtM UbYitbWpFK4gsRVyOENr IC8+RR7uIRSwJpyeuZIdp4 Q1mBD9L48pfu5zQDqteCC6 QQDgDaXexxoad2xwkCw6BA cuNmluOyBt OKXwoZ66EVP7pC32Mh53eF IxvUBjq3gupNk1QxXjMEJl JLR9vRggBGjpa7GlNOPsL9 5hkABnl3P1 KOInrSecgWVvSeVkgOM2xO 6iQPyjgebrm7fwkzmhOjb9 cl61oSUgc1L8aFY9Y4Fpzr D5ZECokCFe FsuqlRJTdF1xrgink7slou yjXwFpFJKxCKp3GNc9DDNe iWmqZyKbSH61MQH2TMNggk JwA4WmXDZo aPgkOxM1j7T0Bd3AL2NCZm saA0VZWOWYQSxxnUP+PC90 of19U0ThXbxbYbz4GVEyRV T2nFP2pD8a SRSwLLmhc2R6zHA8D1Ilgf Dbld2sf1zcCDMrHPxvY59p tAMtl8V7QGCeiQI5IDOfaQ vkHiCvdZ51 Oyc+MEPyfJnqy2IvDxasb7 rmz6lqlCt3SvknXWEsruBq kJqcOSJ1t9NkBp7qZQQfkV X8cWI7dU9y BcXxCvW5DWwlG451NmLqmV TkKdhuN52uQ0IxnSE+PHRy Wus9AIKpuEciCY7aD9MaQE RpbmctbGVm pGqkOV1mTGXqzfxjBJPetR 6oKJKzW0o1GqGfQvV1XLyi S9TpBJMyrvbpNt10kG3zGz JxRgZ3DClw W9EgwbO4XSHneJJqLRivIL X9Z76nf3Z4MUMmGBDgNSZ6 wHW6dO6erBrvfcztyRFqpE sgdmVydGlj OGxzTTvoY409ROPesZtdQs NvZGluZyBEYXRlOiAgMDYv MjAvMjAyNDwvdGQ+PHRkIH U2oEowOQGs wUGjOZubDn4idDqfiMxfMS 6rRTUgjdfkXRByyK8qWCCv pJTidDxzNI1dGMYhspzne3 58NtZjCCU0 RVTzgJTxQ6AovM0zUrNsJK KhOJPrI9HjrEHlULaeP487 CEtaKiM6PXGcayYvT4AtBG FsaWduOiB0 c5I0Ol8Ol3VvcescP3VfwF SnSoNpBeiyADj8L8LgRcbn dHI+FY41KHWqNP32YPg3WX L9wQgaJFas CLPpE1ZdcR9wMrWxCEZzJV RkOyc+PHRhYmxlIHdpZHRo LZzyWWAkRlHbwEsnCH2rUq 9yZGVyLWNv cKcxoCQhJpQvc4jwQMEmWM vpAZ1bmIjkJ8CgqRT6MRZv v6k1Lj76P00lF6UbcSD+PG CgkUA5gLD6 cX7sGwTwTkE8WNmoW370Ub SkhZMkTmtrd4zeo1biaFb1 HtA7EVKzwrRklIluUAU3g1 SaKt62F42x IHdpZHRoPSIxNSUiIHZhbG llqj6fzS3lYt3+PGNvbCB3 mLH7lM2gYqLnQjV5CYwbF3 49InRvcCIv Frjxy5lyc5bjmFj2GzWaIH TracLeoBorEXV3n4VvGd02 S5JidJcde8EuOoa0qx65yL Xgj1P0qRC1 C7GpFMDdyudvgLWtnPtiIH 2iURWqxcbtBYFusO4iWBPi A0w9KfNnZzM9ZAowJ0Bxds A9PSWvzNCr NUQcqOIVvO8onvyit6uttx ydSiRgFBZnHBv6BSz2LEYg pBgxPiXpZDA3RpN2VAQ7bQ HowH5guGbu ajthyJ2wPak+CWQ3hCMhbQ PAWZ7gDontbUH+PHRkIHN0 oSrkBEmsTMAuxL3xACKhY3 p5KiNbJfK6 UNwkI4JzuoQ2LYNplRZoTC WdcSSWoO6xtdvsm3mtqsnr IeBrVYAnPLy5AHr1GPBlyK duOiBsZWZ0 ShV6VHG8oCKciI9kcSekel uceY7pLwv+QmlydGggRGF0 HHz0Z0RwFbp5KMAsiQpdRO 0ncGFkZGlu Oq5ahEmqmLdzYO7uTPZjrj ltl750ZdBji5ifYJKnkPZo RLtmVHN7T87xe6J1IYJiJB VmSPO9kAD3 cO2ekQrrsvmatBAkgZfdml HzrGgmWSkwSBmzH452XWEz rKciBlHwRJg9E3AmCmm0TP QyiOzxKS3t zODaZSwmBa7roRaakEhuGN 7bTFHiexojg578SiAdc1ou JDAjuITeMYskBMR4X92ce1 C6TLKsNQPa NCT4gJR2bP3pbPacwwjolU VmdDsgdmVydGljYWwtYWxp V572RPYxaUxvSeHarAd2F8 OeDrt3MGTg wXevGQ0usRXiQYbzAk9sgH lywHdwEY9xGBBktdpmi285 CmSfr9qlNRZxuPMuUGngDB H2Z94vc1T8 LBSnFHXyDDR0bWG6nV8lyS lnbjogbGVmdDsgdmVydGlj WYyrCAsyP731YUFgaFizJy BhdGllbnQg UXltMJn4Y5OvQynljQV+PC 46KPOpVL06pRPibPXsg1fc uJy4QgGgMJLrEVZ1hUppJR zjl2JmLDQp E72qrVMkx2S2GRRylEtgeR WvDfXtqTU4rV7zBQmzhsgq b8weckvyEwpma3lrll66iR 87N31cNVqa ZHRoPSIzMCUiIHZhbGlnbj 9czE1sKn5+NLLwlCW7zOF9 uQ1pVDHiJrW2UIfqI245Sm RvcCIvPjxj t4swy2yciCh2PrC6GHWfnz KqiUhlOJG1t7WmDl95W77k IHdpZHRoPSIyMCUiIHZhbG mkhw3izM5m Ii8+FKOwaNF5iOW9qR3hYq RdIbR8DCxaD143XrPqgCZw YqgxA37xC4VpkDM+PHRyPj z4PVSxbTuc GE9xpRWhNWowWt2cLWM2Kn IaXxTaAOheJ2CvGRSajxsd jwjgiRX8CCAgEETglV06Pe 9udDogMTBw bBNTtA0rkmgpe2eoeuseSx MdWBIcNOl2TNa3IQFrnQyh WiUiASC4HgA7IFK9eHGfsG 1hbGlnbjog uI4jX5NuRCZjbllxBs64rN 0wBfBjRwF6MUseRqx+UEhJ OAHPNUZOHPMDQX0QPQ54FN 38tPWbe1J3 iGN6S9XkHUAxsmthsqcbfV M8UTQsWFEdrP52fRZmUXtg Qe9oc4H3d653TYHbGCBezE 72Yu6cdFuo OMQmbYBAoO8yldspz1jjbm oaLvNdVKJvHSt7DSd3WZXc fRvrDlRwWLZ3LuZ8BKM0vT BgxL6pxPiv cmwigE6nEzd+MTIvMjcvMT m4RpsgtFM+LBZxNPC9mZhe KIekCTAtmP8pBLKlX9v5So XoJtM4NAxm Q1CtYJVtkzidLd53xQ5cDe HeNkV5XUcxA6GleoR3WKWl jPOmTQeyUZV3G41qc1H4GA MwMDAwMDA7 hSU4yK0lkKomsttodEWlkY bkgfVgdPymNBfoKQqhF140 IHRvcDsnPjUxIFllYXJzPC 45GP86kMKq y3I7kAT8G3NzPANiittlca wwtKM1UPVzIJNtiK80dVBg JBtxXe6xo4R6x259HWDhZI BolQ26Bt3x pAahJYVmbETOhI7rjqozs6 yzgnlqGpAxKTXjGQp4CBl4 QBMutBvsFuGgMWA1QbI3ID V7cMIhrP9v wYvudpdfwO9zEuq+RmVtYW inYS05WA08hIWgg5H6oCV6 Q9GeDUYeborergladHJ7IT NwCVMxoG84 xPRqVSvhNt2hu0A8j214WN DmFRSwxH25Xl0fmYkcIHUg zNGSjW0tykbbn3ibxchvCf AwMDAwMDt0 EGh3OVOyvVkiJvFbWCW4Zj N3OZA3kTHyiM3qlNtyofkp mM9qExu+Z4N4sGK5zTFjtQ wvdGQ+PC90 fv74R3EfTtzzTiv5GRZsRX O3gGQ8jV6gVIQxANtxj8J5 rJK4X2AamnCche6qe1maWG SxSXmjJ17g nNLoc1T5UESinQT3UPCpbK rlTbJsxS89Izl+PGNvbGdy o1ZtHkwbg8atg8xhwTg9Sq MwJSIgdmFs wUsaCDQ1c1UoAl48M55wCK dpZHRoPSIzMCUiIHZhbGln qj0lhO3eXu8+KIXgoSF9zT H5pM5oMzWc YtZ5SAsuL199WyWtwLIhFi msf4gvm2tniTn4TxBjGVOo reZmiBgxNIV0m8AqFr22S5 EbvQhgu0Eo Hhl8tk89yQYse9I7iFT1C6 DtYIUxfqewyDXtjOkkES5c HJDxqtwwDBGckZ7sOYZuQ7 d1QyFbGiY2 TMrnT3BguzI2YWSukWWbJI YwlWWJiJ7eadtgo8uodjzf BdUhVVPcREz2FXv6MJBalP duOiBsZWZ0 KhF1WYY0mAGodA1jaEsxof lelP3kBij+BHy7c3yrwHFu XA2eiQH2AJ13SA57sNZkq7 P1xFP0W3Ll RSEmnrlcekekdLM2RUXgAE FxzS59Hv7emRuqCw4sPBVe LCZ5CBPugZLcX0FvnK8xTf AjMDAwMDAw Q2WrlYTwBPyiU545SOpiXm R3AIQjulAxG4LsKXTulZqp XbQ9m1A3Xh8KTU36JY22DG 07lDLtb9A2 xKI7M5CrYBKjjfxgvpujaU Q0RDTsFIIslP43Bh1yyLuv Mn8oPZSrZUY4WTOffPJpM1 SlhO5aKdDf ZHFsHTMdQ3TxuAGbQRwqV1 44JDjbYmR9YXZxbgSoX8Jr BSHroSsiXeB6w1A9Jp3ADv 18YY97LF71 eVTtj0X5aVA7K7SsBFDaqa xpyrmfsBO3XBLqDDZdnT21 Ra3nbXpqSw7fUKHhIMA0ON KonPBlA9Rd jV2gNhHfHMJiEUSaF5MzqQ GgOBfeT628SByfIlU9LCDe qlSaS6CpWMLisNxdLqX5f8 G9Zj1ZDYof gag2G3QjZsmkiVT+PC90YW JwJU49tDEutRVue3xcuSi6 FqWgWBJhVYW7tIovCHsgd2 OqWRUhM42b gYSgz9W4LSUgp (more content not included)... Normal [facility] Consent for Procedure/Surger n 11-07-2023 Consent for Procedure/Surgery [id number] 0TIFF Normal [facility] Consent for Treatmenton 10-20 Consent for Treatment [id number]#[id number] 0TIFF Normal [facility] Inpatient Patient Summaryon 11-07-2023 Inpatient Patient Summary [place] [id number] Clinical Summary Person Information Name: HENRRY MELÉNDEZ Age: 53 Years : 1970 Sex: Female PCP: SLIME TALBOT MD Marital Status: Race: White Ethnicity: Non- or Language: Tamazight Visit Id: Visit Reason: GROSS HEMATURIA Speciality: Acuity: Enc Type: Outpatient Med Service: Surgery Arrival: 11/07/2023 09:24:15 Discharge: Dispo Type: Address: [address] [place] [id number] Provider Notes: Diagnosis: Gross hematuria; OAB (overactive bladder) Problems Active Dysuria ASHD (arteriosclerotic heart disease) Essential hypertension GERD without esophagitis Obstructive sleep apnea Smoking Status: Functional Status: Sensory Deficits: History of Falls: Mobility Assistance Prior to Admission: ADLs: Current Level of Assistance for Self-Care/Mobility: Cognitive Status: Allergies Cipro (Unknown) Nyquil Cold Medicine (Unknown) Laboratory or Other Results This Visit (last charted value for your 11/07/2023 visit) No Laboratory or Other Results This Visit Measurements: Height: Weight: Blood Pressure: Not Valued / Not Valued BMI: Procedures No Procedures Documented Immunizations No Immunizations Documented This Visit Final Med List: dexamethasone (dexamethasone 1 mg oral tablet) 1 Tablets By Mouth Once. Take at 11 PM; Have cortisol level drawn at 8 AM the next day. Refills: 0. dexamethasone (dexamethasone 1 mg oral tablet) 1 Tablets By Mouth Once. Take at 11 PM; Have cortisol level drawn at 8 AM the next day. Refills: 0. famotidine (Pepcid AC) 20 Milligram By Mouth Once. losartan (losartan 50 mg Tab) 1 Tablets. metoprolol (metoprolol 25 mg ER Tab) 1 Tablets By Mouth every day. mirabegron (mirabegron 50 mg oral tablet, extended release) 1 Tablets By Mouth every day. Refills: 11. spironolactone (spironolactone 25 mg Tab) 1 Tablets. Care Team Members: Attending Physician: Gemma Blanco MD Consulting Physician: Referring Physician: Gemma Blanco MD Follow up: With: Address: When: Zulema Joya Comments: Office to schedule follow up in 2 months with PVR With: Address: When: Gemma Blanco Patient Education Information: EU - Cystoscopy Discharge Instructions (CUSTOM) Normal [facility] IntraOperative Documentson 0 11-07-2023 IntraOperative Documents [id number]#[id number] 0TIFF [facility] Lab Reportson 11-07-2023 Lab Reports [id number]#[id number] 0TIFF [facility] Main OR Intraoperative Recor don 11-07-2023 Main OR Intraoperative Record IntraOp Document Type FTURO Summary Primary Physician: Gemma Blanco MD Finalized Date/Time: 11/07/23 10:45:52 Pt. Name: HENRRY MELÉNDEZ/Sex: 1970 Female Med Rec #: [id number] Physician: Gemma Blanco MD Financial #: [id number] Pt. Type: O Room/Bed: / Admit/Disch: 11/07/23 09:24:15 - Institution: Case Times FTURO Entry 1 Patient Times In Room 11/07/23 10:25:00 Out Room 11/07/23 10:36:00 Procedure Times Start 11/07/23 10:27:00 Stop 11/07/23 10:31:00 Anesthesia Times Last Modified By: Grzegorz GARLAND, Magali Pitt 11/07/23 10:30:26 Case Attendance FTURO Entry 1 Entry 2 Entry 3 Case Attendee Gemma Blanco MD, RN, Magali Yee LPN, Evi Pitt Role Performed Surgeon - Primary Assisted Living Associate - Primary Scrub - Primary Time In 11/07/23 10:25:00 11/07/23 10:25:00 11/07/23 10:25:00 Time Out 11/07/23 10:36:00 11/07/23 10:36:00 11/07/23 10:36:00 Procedure CYSTOSCOPY LOCAL(.) CYSTOSCOPY LOCAL(.) CYSTOSCOPY LOCAL(.) Comments Last Modified By: Grzegorz GARLAND, Magali Lantigua RN, Magali Lantigua RN, Magali Pitt 11/07/23 Soco P 11/07/23 Soco P 11/07/23 10:30:29 10:30:29 10:30:29 Surgical Procedures FTURO Entry 1 Procedure Description Procedure CYSTOSCOPY LOCAL Modifiers . Surgeon Description CYSTOSCOPY WITH URINE CYTOLOGY Primary Procedure Yes Primary Surgeon Gemma Blanco MD Start 11/07/23 10:27:00 Stop 11/07/23 10:31:00 Anesthesia Type Local Surgical Service Urology Wound Class 2 - Clean-Contaminated Last Modified By: Grzegorz GARLAND, Magali Pitt 11/07/23 10:30:16 General Case Data FTURO Pre-Care Text: Classifies surgical wound, implements aseptic technique, initiates traffic control Entry 1 Case Information OR URO 1 FT Case Level None Wound Class 2 - Clean-Contaminated Specialty Urology Preop Diagnosis GROSS HEMATURIA Postop Same As Preop Yes Postop Diagnosis GROSS HEMATURIA Outcomes Met? Yes Last Modified By: Grzegorz GARLAND, Magali Pitt 11/07/23 10:23:09 Post-Care Text: The patient is free from signs and symptoms of infection EU IntraOp - FTURO Pre-Care Text: Implements protective measures prior to operative or invasive procedure, confirms identity before the operative or invasive procedure, verifies operative procedure, surgical site, and laterality Entry 1 EU Perioperative Protocols Procedure(s) CYSTOSCOPY LOCAL(.) Patient Identity Birthday, ID Band Verified (select at Check, Patient least 2): Participation Consents / H and P HandP, Surgery/Procedure Operative Site N/A Verified Consent Marking Verified Surgical Site Yes Laterality Verified n/a Verified Procedure Verified Yes Correct Patient Yes Position Verified Availability Equipment, Medication Time Out Gemma Blanco MD, Verified (If Participants Grzegorz GARLAND, Magali Applicable) Soco P, Joselito CERTIFIED PHARMACY TECH, Evi Whitley Time Out Complete 11/07/23 10:25:00 Allergies Reviewed? Yes Allergies Reviewed Self/Patient With Body Position Frog Legged Prep Area PERINEAL AREA Prep Agents Betadine Solution Skin. Condition Unable to Visualize Description CLOTHED Additional Other (See Comment) Specimens Comment URINE FOR CYTOLOGY Specimens Collected Vitals - EU Blood Pressure 161/115 Pulse 92 bpm Respirations 14 br/min SPO2 97 % IandO - EU Outcomes Met? Yes Last Modified By: Magali Lantigua RN 11/07/23 10:45:44 Post-Care Text: The patient is free from signs and symptoms of injury caused by extraneous objects Sign Out FTURO Entry 1 Before Patient Leaves OR Nurse verbally Yes Nurse verbally Yes confirms with the confirms with the team the name of team that the procedure(s) instrument, sponge, recorded and needle counts are correct (or N/A) Nurse verbally Yes Nurse verbally Yes confirms with the confirms with the team how the team whether there specimen is labeled are any equipment (including patient problems to be name), if applicable addressed Sign Out Complete 11/07/23 10:30:00 Last Modified By: Magali Lantigua RN 11/07/23 10:30:28 Case Comments Finalized By: Magali Lantigua RN Document Signatures Signed By: Magali Lantigua RN 11/07/23 10:43 Magali Lantigua RN 11/07/23 10:40 Magali Lantigua RN 11/07/23 10:45 Normal [facility] Main OR Preoperative Recordo n 11-07-2023 Main OR Preoperative Record Holding Area Document Type FTURO Summary Primary Physician: Gemma Blanco MD Finalized Date/Time: 11/07/23 09:53:28 Pt. Name: HNERRY MELÉNDEZ/Sex: 1970 Female Med Rec #: [id number] Physician: Gemma Blanco MD Financial #: [id number] Pt. Type: O Room/Bed: / Admit/Disch: 11/07/23 09:24:15 - Institution: Case Times Holding FTURO Pre-Care Text: Verifies consent for planned procedure, identifies individual values and wishes concerning care, includes family members in perioperative teaching Secures patient's records' belongings, and valuables, maintains patient's dignity and privacy, and maintains patient confidentiality Entry 1 In Holding 11/07/23 09:42:00 Outcomes Met? Yes Last Modified By: JARETT Sanchez RN, Ruthann 11/07/23 09:44:08 Post-Care Text: The patient participates in decisions affecting his or her perioperative plan of care The patient's right to privacy is maintained Surgery Checklist FTURO Entry 1 Patient Birthday, ID Band Procedure History and Physical, Identification: Check, Patient Verification: Surgical Consent, With Participation Patient NPO after Midnight: n/a Date/Time: 11/07/23 09:44:00 Personal Items: Glasses Personal Items clothes Comment: Limitations: none Complaints of Pain: No Skin Integrity Unable to Visualize Vitals - EU Blood Pressure 161/115 Pulse 92 bpm Respirations 97 br/min SPO2 14 % Additional None RN Reviewed Yes Specimens Collected Last Modified By: JARETT Sanchez RN, Ruthann 11/07/23 09:53:26 Finalized By: JARETT Sanchez RN, Ruthann Document Signatures Signed By: JARETT Sanchez RN, Ruthann 11/07/23 09:53 Normal [facility] Operative Reporton Operative Report Patient: HENRRY MELÉNDEZ Age: 53 years Sex: Female : 1970 Associated Diagnoses: None Author: Gemma Blanco MD Procedure Operative Information Details: Date/ Time: 11/07/2023 10:40:00. Pre-Op Dx: Gross Hematuria - R31.0. Post-Op Dx: Same. Anesthesia Type: Local. Procedure: Local Cystoscopy. Complications: None. Risks/Benefits/Informe d Consent: Surgical risks, benefits, details of the procedure have been explained to the patient, Full informed consent has been obtained. Intraoperative Information Prepped: Patient is brought back to the endoscopy suite, Patient is placed in supine position, Patient prepped in the usual fashion with Betadine solution, 2% Xylocaine Jelly is placed per Urethra, After waiting several minutes the Cystoscope is introduced. The Urethra is: Normal. The Bladder is: Normal, Trabeculated Mild (1), No bladder tumors, lesions, stones or foreign bodies.. The ureteral orifices: Show efflux of clear urine. Specimens Removed: Voided specimen sent for cytology. Devices Implanted: None. Removal: Cystoscope is removed, The patient tolerated it well. Vaginal examination: Vaginal mucosa: There is no vaginal atrophy The urethra is patent, orthotopic. There are no masses or lesions. There is moderate urethral hypermobility and TEAGAN is not seen. She is able to correctly identify her pelvic muscles with coaching, weak recruitment No significant anterior, apical or posterior prolapse. Non-tender pelvic floor muscles . Postoperative Information Discharge: Follow up arranged, No evidence of malignancy. CTU neg. -F/u urine cytology today - See separate clinic note regarding bothersome sx of OAB and adrenal adenoma workup . Normal [facility] Comment on above: Result Comment: Elec tronically Signed By: Gemma Blanco MD\.br\Date and Time Signed: 11/07/23 10:42 EDT Outpatient Surgery Discharge Instructionon 11-07-2023 Outpatient Surgery Discharge Instruction [id number] 0TIFF Normal [facility] Outpatient Surgery Discharge Instruction [place] [id number] Patient Discharge Instructions PERSON INFORMATION Name: HENRRY MELÉNDEZ Date of : 1970 Current Date: 11/07/2023 10:39:32 PHYSICIANS Admitting Physician: Gemma Blanco MD Comment: Discharge Diagnosis: Gross hematuria; OAB (overactive bladder) HENRRY MELÉNDEZ has been given the following list of follow-up instructions, prescriptions, and patient education materials: IF UNABLE TO CONTACT YOUR PHYSICIAN AND YOU FEEL IT IS AN EMERGENCY, GO TO THE NEAREST EMERGENCY ROOM OR CALL 911 Follow up: With: Address: When: Zulema Joya Comments: Office to schedule follow up in 2 months with PVR With: Address: When: Gemma Blanco Comment: PATIENT EDUCATION INFORMATION Instructions: Cystoscopy ? Voiding after the procedure: there may be some pain, burning, urgency, frequency and blood tinged urine following the procedure. These symptoms usually resolve within 2-5 days. Drink the amount of fluid it takes to keep the urine pink to yellow or clear in color. Drinking enough water and fluids will help to ease any discomfort after your procedure. ? If you are having problems that seem out of the ordinary, please call. ? If unable to contact your physician and you feel it is an emergency, go to the nearest emergency room or call 911 ? Diet ? you may resume your normal diet. ? Activity ? you may resume your normal activities ? Call if you have a fever over 100 degrees. IRIKA RAELENE, have received the attached patient education materials/instructions and have verbalized understanding: May we do a follow up call? Yes No I was present when discharge instructions were given Patient Signature Date Clinican/Nurse Signature ___ Date You may receive a survey from [employer] asking you to rate your care experience. Your feedback is important and will help us understand what we do well and how we can improve the quality of care we provide to you, your loved ones and our community. It?s an honor to serve you. Thank you for choosing [facility] Normal [facility] Progress Note-Physicianon Progress Note-Physician Patient: HENRRY MELÉNDEZ Age: 53 years Sex: Female : 1970 Associated Diagnoses: None Author: Gemma Blanco MD Health Status Allergies: Allergic Reactions (Selected) Severity Not Documented Cipro- Unknown. Nyquil Cold Medicine- Unknown., Allergies (2) Active Severity Reaction Cipro Unknown Nyquil Cold Medicine Unknown Current medications: (Selected) Prescriptions Prescribed dexamethasone 1 mg oral tablet: 1 mg = 1 tab(s), Oral, Once, Take at 11 PM; Have cortisol level drawn at 8 AM the next day, # 1 tab(s), Refills(s) 0, Pharmacy: [facility], 163, cm, 10/03/23 10:16:00 EDT, Height/Length Dosing, 113.5, kg, 10/03/23 10:16:00 EDT, Weight Dosing... dexamethasone 1 mg oral tablet: 1 mg = 1 tab(s), Oral, Once, Take at 11 PM; Have cortisol level drawn at 8 AM the next day, # 1 tab(s), Refills(s) 0, Pharmacy: [facility], 163, cm, 10/03/23 10:16:00 EDT, Height/Length Dosing, 113.5, kg, 10/03/23 10:16:00 EDT, Weight Dosing... mirabegron 50 mg oral tablet, extended release: 50 mg = 1 tab(s), Oral, Daily, # 30 tab(s), Refills(s) 11, Pharmacy: [facility], 163, cm, 10/03/23 10:16:00 EDT, Height/Length Dosing, 113.5, kg, 10/03/23 10:16:00 EDT, Weight Dosing Documented Medications Documented Pepcid AC: 20 mg, Oral, Once losartan 50 mg Tab: 50 mg = 1 tab(s) metoprolol 25 mg ER Tab: 25 mg = 1 tab(s), Oral, Daily spironolactone 25 mg Tab: 25 mg = 1 tab(s) Impression and Plan Assessment and Plan: Diagnosis: Adrenal adenoma (KPR41-NP D35.00, Working, Medical), Gross hematuria (AUT16-ZJ R31.0, Discharge, Medical), OAB (overactive bladder) (YUO64-FZ N32.81, Discharge, Medical), TEAGAN (stress urinary incontinence, female) (PXI88-CJ N39.3, Working, Medical). 53 year old female with gross hematuria here for cystoscopy. Also history of adrenal adenoma, OAB and TEAGAN discussed below: 1. OAB - voids 3x/hr We discussed the pathophysiology of overactive bladder. We discussed possible treatment options including doing nothing, Kegels/physical therapy +/- biofeedback, and trial of medication. She was instructed on doing 3 Kegels when she gets the urge to void before going to the bathroom in an attempt to control her urinary urges. She should exercise her pelvic floor muscles by doing 30-60 repetitions per day. She was counseled regarding bladder retraining, diet choices, and fluid restriction. Patient was informed that second line treatment includes medications. Patient was informed that we would be more than happy to start her on medication if behavioral modification is not sufficient to control her bothersome symptoms. We discussed Mirabegron and that the side effects include possible increase in blood pressure in a small minority of patients, however insurance does not always cover this. We also discussed anticholinergic medications which can have the side effects of dry eyes, dry mouth, constipation and rarely cognitive changes. We discussed anticholinergic medications. Side effects and appropriate usage of the medication were discussed with the patient in detail which include, but are not limited to, dry mouth, constipation, visual disturbances, urinary retention, and exacerbation of urinary symptoms. I instructed the patient to contact me immediately if he has any significant side effects and discontinue the medication. -PFPT at home, literature provided -Start mirabegron 50 mg daily. Risks/benefits discussed. (Gemtesa OF) 2. TEAGAN - not seen on exam today. Declined surgery -PFPT 3. Adrenal adenoma - metabolic workup neg -Repeat imaging in 1-2 years to ensure no growth. 4. Gross hematuria - pink when she wipes sometimes, thinks gross was during stone event. CTU neg, cysto neg -Follow up urine cytology Normal [facility] Comment on above: Result Comment: Elec tronically Signed By: Francis HERNANDEZ, Gemma Siegel\.br\Date and Time Signed: 11/07/23 10:46 EDT RAD - CT Reporton 11-07-2023 RAD - CT Report [id number] TIFF Normal [facility] Urine Cytology ([facility])on 0 11-07-2023 UC Method of Extraction Cystoscopy Normal [facility] Comment on above: Performed By: #### 1 [id number] #### [facility] Laboratory [address] Number of Jars 1 Invalid Interpretation Code [facility] Comment on above: Performed By: #### 1 [id number] #### [facility] [address] [place] [id number] UC Specimen Cystoscopy Normal [facility] Comment on above: Performed By: #### 1 [id number] #### [facility] [address] [place] [address] Type of Service Technical Only Normal [facility] Comment on above: Performed By: #### 1 [id number] #### [facility] [address] [place] [address] Lab Reportson 10-25-2023 Lab Reports [id number] 0TIFF Normal [facility] Lab Reportson 10-17-2023 Lab Reports [id number] 0TIFF Normal [facility] Patient Educationon 10-06-19 Patient Education Urology Dysuria [...] these instructions at home: Medicines ? Take ncfl-ykd-fanibjp and prescription medicines only as told by [...] provider. Document Revised: 12/18/2020 Document Reviewed: 12/18/2020 [employer] Patient Education ? 2022 [employer]. Hematuria, Adult Hematuria is blood in the [...] these instructions at home: Medicines ? Take ynvx-fwd-bpizdrl and prescription medicines only as told by [...] follow y (more content not included)... Normal [facility] Formson 10-04-2023 Forms [id number]. 00TIFF Normal [facility] Lab Reportson 10-04-2023 Lab Reports [id number] 0TIFF Normal [facility] Ambulatory Visit Summaryon 0 10-03-2023 Ambulatory [...] Pharmacy Information [facility]: [address], [place] [id number] [phone] Allergies Cipro (Unknown) Nyquil Cold Medicine (Unknown) [...] for choosing us for your care. Normal [facility] ED Note-Physicianon 08-16-19 24 ED Note-Physician [id number] 0TIFF Normal [facility] Urine Cultureon 08-09-2023 Bacteria identified Cx Nom (U) 75,000 colonies/ml mixed bacterial skin contaminants 2 Days PERFORMED BY: [place] [address] PATHOLOGIST [employer] ISABELA MUÑOZ M.D. Normal [facility] Comment on above: Performed By: #### C UU #### [address] Laboratory - Chemistry and C hemistry - challengeon 08-03-2023 Bilirubin Ql (U) Negative [facility] Glucose (U) [Mass/Vol] Negative [facility] Ketones Ql (U) Negative [facility] pH (U) 5.0 [pH] [facility] Specific gravity (U) [Rel density] 1.015 [facility] Urobilinogen (U) [Mass/Vol] 0.2 mg/dL [facility] Laboratory - Specimen inform ationon 08-03-2023 Appearance (U) clear [facility] Color (U) yellow [facility] Laboratory - Urinalysison Leukocyte esterase Test strip Ql (U) Negative [facility] Nitrite Ql (U) Negative [facility] Protein Ql (U) + [facility] No Panel Informationon 08-02 Urine Occult Blood + [facility] XR KNEE 4+ VIEWS LEFTon XR [...] Weight Tips; Status:Complete - Retrospective Authorization; Done: [id number] Some eating tips that can help you lose weight.; Status:Complete - Retrospective Authorization; Done: [id number] SocHx: Current smoker You need to quit smoking.; Status:Complete - Retrospective Authorization; Done: [id number] Tobacco Use Screening; Status:Complete; Done: 82Vkl5874 You need to stop smoking. Though it is not easy, more than half of all adult smokers have quit. We encourage you to write down all the reasons you should quit smoking and set a quit date for yourself. Ask us how we can help. You may also call 8-772-XGXPAdmetricNOW for free resources and assistance.; Status:Complete - Retrospective Authorization; Done: [id number] Patient Instructions Please bring all medicines, vitamins, [...] negative for complaint. Vitals Vital Signs Recorded: [id number] 09:55AM Heart Rate60, L Radial Klqjzloy635, LUE, Sitting Mtvircsum21, LUE, Sitting Height5 ft 4 in Koddhv052 lb BMI Ozyonzbsya95.2 kg/m2 BSA Calculated2.11 Tobacco Usea) Yes Patient [...] no ma (more content not included)... Normal [facility] Tobacco Screening.on 023 Fall risk assessment c) Not medically indicated -[facility] 250 DO Work Phone: Tobacco use status [facility] a) Yes [facility] 250 DO Work Phone: Tobacco Screening. Yes [facility] 250 DO Work Phone: Office Visit (Cardiology)on [...] we can help. You may also call 0-186-JALNNOW for free resources and assistance.; Status:Complete - Retrospective Authorization; Done: 11Aug2022 Tobacco Use Screening; Status:Complete; Done: 85Yeu7951 Patient Instructions Please bring all medicines, vitamins, [...] to retrieve her recent Holter monitor from [place] 3. I suggested a trial of a [...] VITALSon 08-11-2022 Adult depression screening assessment No [facility] 250 DO Work Phone: Tobacco Screening.on 023 Tobacco use status [facility] a) Yes [facility] 250 DO Work Phone: Tobacco Screening. Yes [facility] 250 DO Work Phone: ECHOCARDIO M/2D COMPLETEon 0 06-27-2022 ECHOCARDIO M/2D COMPLETE Patient: HENRRY MELÉNDEZ Exam Date: 06/27/2022 : 1970 Gender:F Ordering : DR SLIME TALBOT M.D. Admission #: [id number] Family : Order #: [id number] CLICK HERE TO VIEW EXAM ECHOCARDIOGRAM REPORT [...] M.D. on 06/28/2022 at 19:30 Normal [facility] BNPon 06-10-2022 Natriuretic peptide B (Bld) [Mass/Vol] 384.0 pg/mL Normal <=900.0 [facility] Comment on above: Performed By: #### B CAR MOVER, BMP, HSTROPN ####[facility] [address] [place], [place] [address]DrMiranda Saha CBC AUTO DIFFon 06-10-2022 BASO # 0.0 103/ul Normal 0.0-0.1 [facility] Comment on above: Performed By: #### C BC ####[facility] [address] [place], [place] [address]Dr. Alis Saha Basophils/100 WBC (Bld) 0.5 % Normal 0.2-2.0 [facility] Comment on above: Performed By: #### C BC ####[facility] [address] [place], [place] [address]DrMiranda Saha EO # 0.1 103/ul Normal 0.0-0.7 [facility] Comment on above: Performed By: #### C BC ####[facility] [address] [place], [place] [address]DrMiranda Saha Eosinophils/100 WBC (Bld) 1.6 % Normal 0.9-7.0 [facility] Comment on above: Performed By: #### C BC ####[facility] [address] [place], [place] [address]DrMiranda Saha Erythrocyte distribution width (RBC) [Ratio] 15.9 % Critically high 11.0-15.0 [facility] Comment on above: Performed By: #### C BC ####[facility] [address] [place] [address]DrMiranda Saha Hematocrit (Bld) [Volume fraction] 37.1 % Normal 36.0-48.0 [facility] Comment on above: Performed By: #### C BC ####[facility] [address] [place] [address]DrMiranda Saha Hemoglobin (Bld) [Mass/Vol] 12.2 g/dL Normal 12.0-16.0 [facility] Comment on above: Performed By: #### C BC ####[facility] [address] [place], [place] [address]DrMiranda Saha IG # 0.02 10e3/ul Normal 0.00-0.03 [facility] Comment on above: Performed By: #### C BC ####[facility] [address] [place], [place] [address]DrMiranda Saha IG % 0.2 % Normal 0.0-0.5 [facility] Comment on above: Performed By: #### C BC ####[facility] [address] [place], [place] [address]DrMiranda Saha LYMPH # 3.2 103/ul Normal 1.2-3.8 [facility] Comment on above: Performed By: #### C BC ####[facility] [address] [place], [place] [address]DrMiranda Saha Lymphocytes/100 WBC (Bld) 37.3 % Normal 20.5-60.0 [facility] Comment on above: Performed By: #### C BC ####[facility] W[address] [place], [place] [address]DrMiranda Saha MANUAL DIFF REQ NO Normal [facility] Comment on above: Performed By: #### C BC ####[facility] [address] [place] [address]DrMiranda Saha MCH (RBC) [Entitic mass] 29.8 pg Normal 26.7-34.0 [facility] Comment on above: Performed By: #### C BC ####[facility] [address] [place] [address]Dr. Alis Saha MCHC (RBC) [Mass/Vol] 32.9 g/dL Normal 29.9-35.2 [facility] Comment on above: Performed By: #### C BC ####[facility] [address] [place] [address]Dr. Alis Saha MCV (RBC) [Entitic vol] 90.5 fL Normal 81.0-99.0 [facility] Comment on above: Performed By: #### C BC ####[facility] [address] [place], [place] [address]DrMiranda Saha MONO # 0.4 103/ul Normal 0.3-0.8 [facility] Comment on above: Performed By: #### C BC ####[facility] [address] [place], [place] [address]Dr. Alis Saha Monocytes/100 WBC (Bld) 4.6 % Normal 1.7-12.0 [facility] Comment on above: Performed By: #### C BC ####[facility] [address] [place], [place] [address]Dr. Alis Saha NEUT # 4.8 103/ul Normal 1.4-6.5 [facility] Comment on above: Performed By: #### C BC ####[facility] [address] [place], [place] [address]Dr. Alis Saha Neutrophils/100 WBC (Bld) 55.8 % Normal 43.0-75.0 [facility] Comment on above: Performed By: #### C BC ####[facility] [address] [place], [place] [address]DrMiranda Saha Platelet mean volume (Bld) [Entitic vol] 9.9 fL Normal 9.5-13.5 [facility] Comment on above: Performed By: #### C BC ####[facility] [address] [place], [place] [address]Dr. Alis Saha PLT 265 103/ul Normal 150-450 [facility] Comment on above: Performed By: #### C BC ####[facility] [address] [place], [place] [address]Ft. Alis Saha RBC 4.10 106/ul Critically low 4.20-5.40 [facility] Comment on above: Performed By: #### C BC ####[facility] [address] [place], [place] [address]Nn. Alis Saha WBC 8.7 103/ul Normal 4.0-11.0 [facility] Comment on above: Performed By: #### C BC ####[facility] [address] [place], [place] [address]Ln. Alis Saha Covid-19 PCR (CVDTB)on 05-23 SARS-CoV-2 (COVID-19) RNA AMANDA+probe Ql (Unsp spec) Not detected Normal NOT DETECTED [facility] Comment on above: Result Comment: When diagnostic [...] for this test is supported by the [place] of Health and Human Service's declaration that [...] used). Performed By: #### C VDTBH #### [facility] [address] [place], [place] [address] Dr. Alis Saha PROF CHEM 8 (BAS METB)on Anion gap [Moles/Vol] 11.7 mmol/L Normal [facility] Comment on above: Performed By: #### B CAR MOVER, BMP, HSTROPN ####[facility] [address] [place] [address]Dr. Alis Saha Calcium [Mass/Vol] 8.8 mg/dL Normal 8.5-10.1 [facility] Comment on above: Performed By: #### B CAR MOVER, BMP, HSTROPN ####[facility] [address] [place] [address]Dr. Alis Saha Chloride [Moles/Vol] 108 mmol/L Critically high 98-107 [facility] Comment on above: Performed By: #### B CAR MOVER, BMP, HSTROPN ####[facility] [address] [place] [address]Dr. Alis Saha CO2 [Moles/Vol] 23.7 mmol/L Normal 21.0-32.0 [facility] Comment on above: Performed By: #### B CAR MOVER, BMP, HSTROPN ####[facility] [address] [place], [place] [address]Dr. Alis Saha Creatinine [Mass/Vol] 0.70 mg/dL Normal 0.55-1.02 [facility] Comment on above: Performed By: #### B CAR MOVER, BMP, HSTROPN ####[facility] [address] [place], [place] [address]Dr. Alis Saha EGFR-AF CUBAN >60 Normal >=60 [facility] Comment on above: Performed By: #### B CAR MOVER, BMP, HSTROPN ####[facility] [address] [place] [address]Dr. Alis Saha EGFR-NON AF CUBAN >60 Normal >=60 [facility] Comment on above: Performed By: #### B CAR MOVER, BMP, HSTROPN ####[facility] [address] [place] [address]Dr. Alis Saha Glucose [Mass/Vol] 119 mg/dL Critically high 74-106 [facility] Comment on above: Performed By: #### B CAR MOVER, BMP, HSTROPN ####[facility] [address] [place] [address]Dr. Alis Saha Potassium [Moles/Vol] 3.4 mmol/L Critically low 3.5-5.1 [facility] Comment on above: Performed By: #### B CAR MOVER, BMP, HSTROPN ####[facility] [address] [place] [address]Dr. Alis Saha Sodium [Moles/Vol] 140 mmol/L Normal 136-145 [facility] Comment on above: Performed By: #### B CAR MOVER, BMP, HSTROPN ####[facility] [address] [place] [address]Dr. Kavitatrace Saha Urea nitrogen [Mass/Vol] 14.0 mg/dL Normal 7.0-18.0 [facility] Comment on above: Performed By: #### B CAR MOVER, BMP, HSTROPN ####[facility] [address] [place] [address]Dr. Alis Saha Urea nitrogen/Creatinine [Mass ratio] 20.0 mg/mg Normal [facility] Comment on above: Performed By: #### B CAR MOVER, BMP, HSTROPN ####[facility] [address] [place] [address]Dr. Alis Saha TROPONIN, HIGH SENSITIVITYon 06-10-2022 HSTROP 9.9 pg/mL Normal 4.0-51.3 [facility] Comment on above: Result Comment: CUT- OFF POINTS HAVE BEEN ESTABLISHED BASED ON THE FOURTH UNIVERSAL DEFINITIONS OF MYOCARDIAL INFARCTION. THE UPPER REFERENCE LIMIT (URL) OF TROPONIN, DEFINED THE 99TH PERCENTILE OF cTnI DISTRIBUTION IN A REFERENCE POPULATION, HAS BEEN CONFIRMED THE DECISION THRESHOLD FOR IN DIAGNOSIS. Performed By: #### B CAR MOVER, BMP, HSTROPN ####[facility] [address] [place] [address]Dr. Alis Saha XR CHEST 1 Von 06-10-2022 [...] by: POPPY GREEN Date: 2022-06-09 23:02 Normal [facility] XR LSPINE MIN 4 VIEWSon [...] CARLOS VILLATORO Date: 2022-02-02 07:17 Normal The [facility] XR CSPINE 2_3 VIEWSon 2021 XR [...] CARLOS VILLATORO Date: 2021-10-01 07:13 Normal [facility] CBC AUTO DIFFon 09-30-2021 BASO # 0.0 103/ul Normal 0.0-0.1 [facility] Comment on above: Performed By: #### C BC ####[facility] [address] [place], [place] [address]HnMiranda Saha Basophils/100 WBC (Bld) 0.4 % Normal 0.2-2.0 [facility] Comment on above: Performed By: #### C BC ####[facility] [address] [place] [id number]. Alis Saha EO # 0.1 103/ul Normal 0.0-0.7 [facility] Comment on above: Performed By: #### C BC ####[facility] [address] [place] [address]Dr. Alis Saha Eosinophils/100 WBC (Bld) 1.6 % Normal 0.9-7.0 [facility] Comment on above: Performed By: #### C BC ####[facility] [address] [place] [address]Dr. Alis Saha Erythrocyte distribution width (RBC) [Ratio] 15.1 % Critically high 11.0-15.0 [facility] Comment on above: Performed By: #### C BC ####[facility] [address] [place] [address]Dr. Alis Saha Hematocrit (Bld) [Volume fraction] 41.9 % Normal 36.0-48.0 [facility] Comment on above: Performed By: #### C BC ####[facility] [address] [place] [address]Dr. Alis Saha Hemoglobin (Bld) [Mass/Vol] 13.5 g/dL Normal 12.0-16.0 [facility] Comment on above: Performed By: #### C BC ####[facility] [address] [place] [address]Dr. Alis Saha IG # 0.01 10e3/ul Normal 0.00-0.03 [facility] Comment on above: Performed By: #### C BC ####[facility] [address] [place] [address]Dr. Alis Saha IG % 0.1 % Normal 0.0-0.5 [facility] Comment on above: Performed By: #### C BC ####[facility] [address] [place] [address]Dr. Alis Saha LYMPH # 2.3 103/ul Normal 1.2-3.8 [facility] Comment on above: Performed By: #### C BC ####[facility] [address] [place] [phone]. Alis Saha Lymphocytes/100 WBC (Bld) 27.9 % Normal 20.5-60.0 [facility] Comment on above: Performed By: #### C BC ####[facility] [address] [place] [phone]. Alis Yifan MANUAL DIFF REQ NO Normal [facility] Comment on above: Performed By: #### C BC ####[facility] [address] [place] [phone]. Alis Yifan MCH (RBC) [Entitic mass] 28.8 pg Normal 26.7-34.0 [facility] Comment on above: Performed By: #### C BC ####[facility] [address] [place] [address]Dr. Alis Yifan MCHC (RBC) [Mass/Vol] 32.2 g/dL Normal 29.9-35.2 [facility] Comment on above: Performed By: #### C BC ####[facility] [address] [place] [address]Dr. Alis Yifan MCV (RBC) [Entitic vol] 89.3 fL Normal 81.0-99.0 [facility] Comment on above: Performed By: #### C BC ####[facility] [address] [place], [place] [address]Dr. Alis Saha MONO # 0.5 103/ul Normal 0.3-0.8 [facility] Comment on above: Performed By: #### C BC ####[facility] [address] [place] [address]Dr. Alis Yifan Monocytes/100 WBC (Bld) 5.6 % Normal 1.7-12.0 [facility] Comment on above: Performed By: #### C BC ####[facility] [address] [place] [address]Dr. Kavitatrace Yifan NEUT # 5.3 103/ul Normal 1.4-6.5 [facility] Comment on above: Performed By: #### C BC ####[facility] [address] [place] [phone]. Alis Saha Neutrophils/100 WBC (Bld) 64.4 % Normal 43.0-75.0 [facility] Comment on above: Performed By: #### C BC ####[facility] [address] [place] [phone]. Alis Saha Platelet mean volume (Bld) [Entitic vol] 9.5 fL Normal 9.5-13.5 [facility] Comment on above: Performed By: #### C BC ####[facility] [address] [place] [phone]. Alis Saha PLT 316 103/ul Normal 150-450 [facility] Comment on above: Performed By: #### C BC ####[facility] [address] [place] [address]Dr. Alis Saha RBC 4.69 106/ul Normal 4.20-5.40 [facility] Comment on above: Performed By: #### C BC ####[facility] [address] [place] [address]Dr. Alis Saha WBC 8.2 103/ul Normal 4.0-11.0 [facility] Comment on above: Performed By: #### C BC ####[facility] [address] [place] [address]Dr. Alis Saha GLYCOHEMOGLOBIN A1Con 2021 ADA RECOMMENDATION SEE BELOW Normal [facility] Comment on above: Result Comment: ADA RECOMMENDED LIMIT 4.0 - 6.0 ADA THERAPEUTIC TARGET < 7.0 ACTION SUGGESTED > 7.0 Performed By: #### A 1C ####[facility] [address] [place] [phone]. Alis Saha Glucose [Mass/Vol] 128 mg/dL Normal [facility] Comment on above: Performed By: #### A 1C ####[facility] [address] [place] [phone]. Alis Saha HbA1c (Bld) [Mass fraction] 6.1 % Normal 4.5-6.2 [facility] Comment on above: Performed By: #### A 1C ####[facility] [address] [place] [address]Dr. Alis Saha PROF CHEM 8 (BAS METB)on Anion gap [Moles/Vol] 11.5 mmol/L Normal [facility] Comment on above: Performed By: #### T SH, BMP #### [facility] [address] [place] [address] [address] Alis Saha Calcium [Mass/Vol] 8.7 mg/dL Normal 8.5-10.1 [facility] Comment on above: Performed By: #### T SH, BMP #### [facility] [address] [place] [address] [address] Alis Saha Chloride [Moles/Vol] 104 mmol/L Normal 98-107 [facility] Comment on above: Performed By: #### T SH, BMP #### [facility] [address] [address] [address] Alis Saha CO2 [Moles/Vol] 25.5 mmol/L Normal 21.0-32.0 [facility] Comment on above: Performed By: #### T SH, BMP #### [facility] [address] [address] [address] Alis Saha Creatinine [Mass/Vol] 0.85 mg/dL Normal 0.55-1.02 [facility] Comment on above: Performed By: #### T SH, BMP #### [facility] [address] [address] [address] Alis Saha EGFR-AF CUBAN >60 Normal >=60 [facility] Comment on above: Performed By: #### T SH, BMP #### [facility] [address] [place] [address] [address] Alis Saha EGFR-NON AF CUBAN >60 Normal >=60 [facility] Comment on above: Performed By: #### T SH, BMP #### [facility] [address] [address] [address] Alis Saha Glucose [Mass/Vol] 101 mg/dL Normal 74-106 [facility] Comment on above: Performed By: #### T SH, BMP #### [facility] [address] [place] [address] Dr. Alis Saha Potassium [Moles/Vol] 4.0 mmol/L Normal 3.5-5.1 [facility] Comment on above: Performed By: #### T SH, BMP #### [facility] [address] [place] [address] Dr. Alis Saha Sodium [Moles/Vol] 137 mmol/L Normal 136-145 [facility] Comment on above: Performed By: #### T SH, BMP #### [facility] [address] [place] [address] Dr. Alis Saha Urea nitrogen [Mass/Vol] 13.0 mg/dL Normal 7.0-18.0 [facility] Comment on above: Performed By: #### T SH, BMP #### [facility] [address] [place] [address] Dr. Alis Saha Urea nitrogen/Creatinine [Mass ratio] 15.3 mg/mg Normal [facility] Comment on above: Performed By: #### T SH, BMP #### [facility] [address] [place] [address] Dr. Alis Saha TSHon 09-30-2021 TSH 1.548 uIU/mL Normal 0.358-3.740 [facility] Comment on above: Performed By: #### T SH, BMP #### [facility] [address] [place] [address] Dr. Alis Saha TSH RANGE SEE BELOW Normal [facility] Comment on above: Result Comment: <0.3 4 UIU/ml HYPERTHYROID 0.34-5.60 UIU/ml EUTHYROID >5.60 UIU/ml HYPOTHYROID Performed By: #### T SH, BMP #### [facility] [address] [place] [address] Dr. Alis Saha VC CONSULT FOLLOWUPon 2021 VC CONSULT FOLLOWUP Patient: HENRRY MELÉNDEZ Exam Date: 07/19/2021 : 1970 Gender:F Ordering : DR JUAN CARLOS VILLATORO M.D. Admission #: [id number] Family : Order #: [id number] CLICK HERE TO VIEW EXAM RADIOLOGY REPORT [...] Villatoro MD on 07/19/2021 at 15:16 Normal [facility] VC EXT VENOUS RT LIMITEDon 0 07-19-2021 VC EXT VENOUS RT LIMITED Patient: HENRRY MELÉNDEZ Exam Date: 07/19/2021 : 1970 Gender:F Ordering : DR JUAN CARLOS VILLATORO M.D. Admission #: [id number] Family : Order #: [id number] CLICK HERE TO VIEW EXAM RADIOLOGY REPORT [...] to distal calf. Heat induced thrombus in manager location distal calf 1.4 mm from PTV and [...] vein with occlusion of 2 associated incompetent manager location veins No deep vein thrombus Dictated by: Juan Carlos Villatoro MD on 07/19/2021 at 14:36 Approved by: Juan Carlos Villatoro MD on 07/19/2021 at 14:37 Normal [facility] VC ENDOVENOUS ABL 1ST V RTon 07-14-2021 VC ENDOVENOUS ABL 1ST V RT Patient: HENRRY MELÉNDEZ Exam Date: 07/14/2021 : 1970 Gender:F Ordering : DR JUAN CARLOS VILLATORO M.D. Admission #: [id number] Family : Order #: [id number] CLICK HERE TO VIEW EXAM RADIOLOGY REPORT [...] M.D. on 07/14/2021 at 14:50 Normal [facility] Vital Signs Date Time Vital Sign Value Performing Clinician Facility 11-03-2023 10:24-0400 Diastolic blood pressure 87 mm[Hg] Bonny Meyer MD Work Phone: [facility] 11-03-2023 10:24-0400 Systolic blood pressure 132 mm[Hg] Bonny Meyer MD Work Phone: [facility] 11-03-2023 10:04-0400 Body height 162.6 cm Bonny Meyer MD Work Phone: [facility] 11-03-2023 10:04-0400 Body mass index (BMI) [Ratio] 43.43 kg/m2 Bonny Meyer MD Work Phone: [facility] 11-03-2023 10:04-0400 Body weight 114.76 kg Bonny Meyer MD Work Phone: [facility] 11-03-2023 10:04-0400 Heart rate 68 /min Bonny Meyer MD Work Phone: [facility] 10-03-2023 09:53-0400 Diastolic blood pressure 106 mm[Hg] Zulema Orzech [facility] 10-03-2023 09:53-0400 Heart rate 73 /min Zulema Orzech [facility] 10-03-2023 09:53-0400 Respiratory rate 19 /min Zulema Orzech [facility] 10-03-2023 09:53-0400 Systolic blood pressure 146 mm[Hg] Zulema Orzech [facility] 08-09-2023 11:52-0400 Body height 163.83 cm [facility] 08-09-2023 11:52-0400 Body mass index (BMI) [Ratio] 41.8 kg/m2 [facility] 08-09-2023 11:52-0400 Body temperature 96.8 [degF] [facility] 08-09-2023 11:52-0400 Body weight 112.09 kg [facility] 08-09-2023 11:52-0400 Diastolic blood pressure 81 mm[Hg] [facility] 08-09-2023 11:52-0400 Heart rate 80 /min [facility] 08-09-2023 11:52-0400 Systolic blood pressure 114 mm[Hg] [facility] 05-31-2023 10:15-0500 Body height 163.83 cm Slime Talbot Other [facility] 05-31-2023 10:15-0500 Body mass index (BMI) [Ratio] 42.89 kg/m2 Slime Talbot Other [facility] [employer] Other 05-31-2023 10:15-0500 Body weight 115.12 kg Slime Talbot Other [facility] 05-31-2023 10:15-0500 Diastolic blood pressure 83 mm[Hg] Slime Talbot Other [facility] 05-31-2023 10:15-0500 Systolic blood pressure 124 mm[Hg] Slime Talbot Other [facility] 04-20-2023 11:15-0500 Body height 163.83 cm Slime Talbot Other [employer] Other 04-20-2023 11:15-0500 Body mass index (BMI) [Ratio] 42.58 kg/m2 Slime Talbot Other [employer] Other 04-20-2023 11:15-0500 Body weight 114.31 kg Slime Talbot Other [employer] Other 04-20-2023 11:15-0500 Diastolic blood pressure 88 mm[Hg] Slime Talbot Other [employer] Other 04-20-2023 11:15-0500 Systolic blood pressure 138 mm[Hg] Slime Talbot Other [employer] Other 02-21-2023 11:15-0400 Body height 163.83 cm Slime Talbot Other [employer] Other 02-21-2023 11:15-0400 Body mass index (BMI) [Ratio] 41.91 kg/m2 Slime Talbot Other [employer] Other 02-21-2023 11:15-0400 Body weight 112.49 kg Slime Talbot Other [employer] Other 02-21-2023 11:15-0400 Diastolic blood pressure 86 mm[Hg] Slime Talbot Other [employer] Other 02-21-2023 11:15-0400 Systolic blood pressure 130 mm[Hg] Slime Talbot Other [employer] Other 12-02-2022 09:55-0400 Body height 162.56 cm Slime Talbot Work Phone: [employer] 250 DO Work Phone: 12-02-2022 09:55-0400 Body mass index (BMI) [Ratio] 41.2 kg/m2 Slime Talbot Work Phone: [employer] [facility] [employer] 250 DO Work Phone: 12-02-2022 09:55-0400 Body surface area Derived from formula 2.11 m2 Slime Talbot Work Phone: [employer] 250 DO Work Phone: 12-02-2022 09:55-0400 Body weight 108.86 kg Slime Talbot Work Phone: [employer] 1Oscar 250 DO Work Phone: 12-02-2022 09:55-0400 Diastolic blood pressure 62 mm[Hg] Slime Talbot Work Phone: [facility] 250 DO Work Phone: 12-02-2022 09:55-0400 Heart rate 60 /min Slime Talbot Work Phone: [facility] 250 DO Work Phone: 12-02-2022 09:55-0400 Systolic blood pressure 118 mm[Hg] Slime Talbot Work Phone: [facility] 250 DO Work Phone: 08-11-2022 13:37-0400 Diastolic blood pressure 86 mm[Hg] Slime Talbot Work Phone: [facility] 250 DO Work Phone: 08-11-2022 13:37-0400 Systolic blood pressure 137 mm[Hg] Slime Talbot Work Phone: [facility] 250 DO Work Phone: 08-11-2022 13:26-0400 Heart rate 62 /min Slime Talbot Work Phone: [facility] 250 DO Work Phone: 08-11-2022 13:24-0400 Diastolic blood pressure 88 mm[Hg] Slime Talbot Work Phone: [facility] 250 DO Work Phone: 08-11-2022 13:24-0400 Systolic blood pressure 132 mm[Hg] Slime Talbot Work Phone: [facility] 250 DO Work Phone: 08-11-2022 13:23-0400 Body height 162.56 cm Slime Talbot Work Phone: [facility] 250 DO Work Phone: 08-11-2022 13:23-0400 Body mass index (BMI) [Ratio] 40.85 kg/m2 Slime Johnson Antione Work Phone: [facility] 250 DO Work Phone: 08-11-2022 13:23-0400 Body surface area Derived from formula 2.11 m2 Slime Johnson Antione Work Phone: [facility] 250 DO Work Phone: 08-11-2022 13:23-0400 Body weight 107.96 kg Slime Johnson Antione Work Phone: [facility] 250 DO Work Phone: 08-11-2022 13:23-0400 Diastolic blood pressure 90 mm[Hg] Slime Johnson Antione Work Phone: [facility] 250 DO Work Phone: 08-11-2022 13:23-0400 Systolic blood pressure 140 mm[Hg] Slime Johnson Antione Work Phone: [facility] 250 DO Work Phone: Encounters Encounter Date Encounter Type Care Provider Facility Start: 01-09-2024 ambulatory Zulema Paulino y:[facility] Start: 12-06-2023 End: 12-06-2023 ambulatory KATE LOGAN Not Available Start: 11-07-2023 End: 11-07-2023 ambulatory Gemma Blanco Facility:[facility] Start: 11-07-2023 End: 11-07-2023 Patient encounter procedure Gemma Blanco [facility] Start: 11-03-2023 End: 11-03-2023 ambulatory [facility] Start: 11-03-2023 End: 11-03-2023 Office outpatient visit 25 minutes Bonny Meyer MD Work Phone: [facility] Comment on above: Palpitations (Primar y Dx); Essential hypertension; Shortness of breath; BMI 40.0-44.9, adult (Multi); Current smoker Start: 10-03-2023 End: 10-03-2023 ambulatory Zulema X Orzech Facility:[facility] Start: 10-03-2023 End: 10-03-2023 Patient encounter procedure Zulema X Orzech [facility] Start: 08-10-2023 ambulatory Zulema Orzech Facility: [facility] Start: 08-09-2023 End: 08-09-2023 Departed Referred MD Slime Talbot Work Phone: [facility] [place] Work Phone: Start: 08-09-2023 End: 08-09-2023 ambulatory Slime Talbot [facility] Work Phone: Start: 08-09-2023 End: 08-09-2023 Patient encounter procedure [facility] Physician [facility] Work Phone: Start: 08-03-2023 End: 08-03-2023 ambulatory [facility] Work Phone: Start: 08-03-2023 End: 08-03-2023 Patient encounter procedure [facility] Work Phone: Start: 05-31-2023 End: 05-31-2023 ambulatory Slime Talbot Other [employer] Other Start: 05-31-2023 Office outpatient vi sit 15 minutes Slime Talbot [facility] Start: 05-31-2023 End: 05-31-2023 Patient encounter procedure [facility] Physician [facility] Work Phone: Start: 05-25-2023 End: 05-25-2023 ambulatory ZOLTAN HENDERSON Not Available Start: 04-24-2023 End: 04-24-2023 ambulatory Slime Talbot Other [employer] Other Start: 04-24-2023 Telephone encounter Slime Talbot [facility] Start: 04-20-2023 End: 04-20-2023 ambulatory Slime Talbot Other [employer] Other Start: 04-20-2023 Office outpatient vi sit 15 minutes Slime Talbot [facility] Start: 03-28-2023 (Televisit) Televisit Slime Gong [facility] Start: 03-28-2023 End: 03-28-2023 ambulatory Slime Talbot Other [employer] Other Start: 02-21-2023 End: 02-21-2023 ambulatory Silme Talbot Other [employer] Other Start: 02-21-2023 Office outpatient vi sit 25 minutes Slime Talbot [facility] Start: 12-02-2022 ambulatory MD SLIME TALBOT Facility: Start: 12-02-2022 Office outpatient vi sit 15 minutes [facility] Work Phone: Start: 08-18-2022 End: 08-18-2022 ambulatory Slime Talbot Other [employer] Other Start: 08-18-2022 Telephone encounter Slime Talbot [facility] Start: 08-11-[address] Bonny Meyer Facility: Start: 08-11-2022 Office consultation new/estab patient 60 min Slime Talbot Work [facility]: [facility] 250 DO Work Phone: Start: 08-05-2022 End: 08-05-2022 ambulatory Slime Talbot Other [employer] Other Start: 08-05-2022 Nursing evaluation o f patient and report Slime Talbot [facility] Start: 07-04-2022 End: 07-04-2022 ambulatory Slime Talbot Other [employer] Other Start: 07-04-2022 Telephone encounter Slime Talbot [facility] Start: 06-27-2022 End: 06-28-[address] SLIME TALBOT Facility:[facility] Start: 06-22-2022 End: 06-22-2022 ambulatory Slime Talbot Other [employer] Other Start: 06-22-2022 Telephone encounter Slime Talbot [facility] Start: 06-14-2022 End: 06-14-2022 ambulatory Slime Talbot Other [employer] Other Start: 06-14-2022 Telephone encounter Slime Talbot [facility] Start: 06-12-2022 End: 06-12-2022 ambulatory ELY SANTOS [...] Cholecystectomy Slime Johnson Hayley wilde Work Phone: Cholecystectomy Zulema Orzec h Hysteroscopy Zulema Orzech Ligation of varicose vein Otis Talbot Work Phone: Stripping of vein Zulema Orz ech Total colonoscopy Slime mancuso Work Phone: Comment on above: over 10 years ago; Plan of Treatment Date Care Activity Detail Author Start: 10-28-2024 End: 10-28-2024 Patient encounter procedure 10/28/2024 10:10 AM EDT Office Visit [facility] [address] [id number] [facility] [address] [address] [facility] Start: 01-21-2024 Influenza vaccination Influenza Vaccine (Season Ended) [facility] Start: 08-09-2023 Bacteria identified in Urine by Culture [facility] Start: 08-09-20[address] Patient [address] [facility] Work Phone: Start: 01-20-2023 COVID-19 Vaccine ( season) COVID-19 Vaccine ( season) [facility] Start: 12-02-2022 FUV, Provider: Bonny Meyer, Status: Pen, Time: 9:40 AM FUV, Provider: Bonny Meyer, Status: Pen, Time: 9:40 AM [facility] 250 DO Work Phone: Start: 2022 Zoster Vaccines (1 of 2) Zoster Vaccines (1 of 2) [facility] Start: 2012 Screening for malignant neoplasm of breast Mammogram [facility] Start: 1994 DTaP/Tdap/Td Vaccines (1 - Tdap) DTaP/Tdap/Td Vaccines (1 - Tdap) [facility] Start: 1993 Screening for malignant neoplasm of cervix [facility] Start: 1991 Hepatitis B Vaccines (1 of 3 - 19+ 3-dose series) Hepatitis B Vaccines (1 of 3 - 19+ 3-dose series) [facility] Start: 1990 Diabetes mellitus screening Diabetes Screening [facility] Start: 1990 Hepatitis C screening Hepatitis C Screening [facility] Start: 1978 Pneumococcal Vaccine: Pediatrics (0 to 5 Years) and At-Risk Patients (6 to 64 Years) (1 of 2 - PCV) Pneumococcal Vaccine: Pediatrics (0 to 5 Years) and At-Risk Patients (6 to 64 Years) (1 of 2 - PCV) [facility] Start: 1973 MMR Vaccines (1 of 1 - Standard series) MMR Vaccines (1 of 1 - Standard series) [facility] Start: 1972 HIV screening HIV Screening [facility] Start: 1972 Lipid panel Lipid Panel [facility] Start: 1972 Screening for malignant neoplasm of colon [facility] Start: 1972 Yearly Adult Physical Yearly Adult Physical [facility] Patient referral [facility] Work Phone: Payers Date Payer Category Payer Unknown 2021 Unknown [id number] 1970 Unknown [id number] 2.16.84 [id number] 1970 Unknown [id number] 2.16.84 [id number] 1970 Unknown [id number] 2.16.84 0.1.730934.3.579.2.593 1972 Unknown [id number] 2.16.84 0.1.032919.3.579.2.593 1972 Unknown [id number] 2.16.84 0.1.923549.3.579.2.593 1972 Unknown [id number] 2.16.84 0.1.565278.3.579.2.593 1972 Unknown [id number] 2.16.84 0.1.985363.3.579.2.593 1972 Unknown [id number] 2.16.84 0.1.407230.3.579.2.593 1972 Unknown [id number] 2.16.84 0.1.953237.3.579.2.593 1972 Unknown [id number] 2.16.84 0.1.068663.3.579.2.593 1972 Unknown [id number] 2.16.84 0.1.994488.3.579.2.593 1972 Unknown [id number] 2.16.84 0.1.268169.3.579.2.593 1972 Unknown [id number] 2.16.84 0.1.897354.3.579.2.593 1972 Unknown [id number] 2.16.84 0.1.684340.3.579.2.593 1972 Unknown [id number] 2.16. 840.1.819344.3.579.2.356 1972 Unknown [id number] 2.16. 840.1.938620.3.579.2.356 1972 Unknown [id number] 2.16.8 40.1.738720.3.579.2.1244 1972 Unknown [id number] 2.16.8 40.1.679697.3.579.2.727 1972 Unknown [id number] 2.16.8 40.1.691005.3.579.2.727 1972 Unknown [id number] 2.16.8 40.1.461792.3.579.2.727 1972 Unknown [id number] 2.16.84 0.1.544616.3.579.2.1259 1972 Unknown [id number] 2.16.840 .1.419466.3.579.2.1259 1972 Unknown [id number] 2.16.840 .1.363056.3.579.2.1259 1959 Unknown [id number] Social History Date Type Detail Facility Unknown if ever smoked [employer] Other Start: 08-08-2023 Sex Assigned At F [facility] Start: 08-08-2023 Caffeine use Caffeine use -[facility] [employer] [facility] 250 DO Work Phone: Comment on above: pop all day; 5-10 cigarettes jessi y; Start: 1970 Sex Assigned At Female F [facility] Start: 10-03-2023 Tobacco smoking status Heavy t obacco smoker (finding) [facility] Start: 11-03-2023 [facility] Work Phone: History of tobacco use Cigarette Smoker [facility] [facility] Work Phone: Start: 11-03-2023 Tobacco use and exposure User of smokeless tobacco [facility] Work Phone: Start: 11-03-2023 Alcoholic beverage intake Lifetime non-drinker (finding) [facility] Work Phone: Start: 11-03-2023 Tobacco Comment vape [facility] Work Phone: Start: 1970 Sex assigned at Not on file [facility] Work Phone: Start: 10-24-2023 End: 11-03-2023 Exposure to SARS-CoV-2 (event) Not sure [facility] Functional Status Date Assessment Result Facility 10-03-2023 Functional Status N/A [facility] Clinical Notes 09-30-2021 to 11-07-2023 Note Date & Type Note Facility 11-07-2023 Evaluation + Plan note Extrac galileo from: Title: Clinic [facility] Note Author:Francis HERNANDEZ, Gemma Lee . Date:11/07/23 Impression and Plan Assessment and Plan: Diagnosis: Adrenal adenoma (XCM08-EI D35.00, Working, Medical), Gross hematuria (UEU96-RL R31.0, Discharge, Medical), OAB (overactive bladder) (LMN67-QP N32.81, Discharge, Medical), TEAGAN (stress urinary incontinence, female) (SQG48-LX N39.3, Working, Medical). 53 year old female with gross hematuria here for cystoscopy. Also history of adrenal adenoma, OAB and TEAGAN discussed below: 1. OAB - voids 3x/hr We discussed the pathophysiology of overactive bladder. We discussed possible treatment options including doing nothing, Kegels/physical therapy +/- biofeedback, and trial of medication. She was instructed on doing 3 Kegels when she gets the urge to void before going to the bathroom in an attempt to control her urinary urges. She should exercise her pelvic floor muscles by doing 30-60 repetitions per day. She was counseled regarding bladder retraining, diet choices, and fluid restriction. Patient was informed that second line treatment includes medications. Patient was informed that we would be more than happy to start her on medication if behavioral modification is not sufficient to control her bothersome symptoms. We discussed Mirabegron and that the side effects include possible increase in blood pressure in a small minority of patients, however insurance does not always cover this. We also discussed anticholinergic medications which can have the side effects of dry eyes, dry mouth, constipation and rarely cognitive changes. We discussed anticholinergic medications. Side effects and appropriate usage of the medication were discussed with the patient in detail which include, but are not limited to, dry mouth, constipation, visual disturbances, urinary retention, and exacerbation of urinary symptoms. I instructed the patient to contact me immediately if he has any significant side effects and discontinue the medication. -PFPT at home, literature provided -Start mirabegron 50 mg daily. Risks/benefits discussed. (Gemtesa OF) 2. TEAGAN - not seen on exam today. Declined surgery -PFPT 3. Adrenal adenoma - metabolic workup neg -Repeat imaging in 1-2 years to ensure no growth. 4. Gross hematuria - pink when she wipes sometimes, thinks gross was during stone event. CTU neg, cysto neg -Follow up urine cytology Future Appointments Appointment Date:01/09/2024 09:30:00 AM Scheduled Provider:JOHNNA Joya APRN, [place] [facility] Location:[facility] Appointment Type:URO Office Visit Diagnostic Tests Pending * Urine Cytology ([facility]) 11/07/23 [facility]06-18-2024 Hospital Discharge instructions Patient Education 11/07/2023 10:39:12 EU - Cystoscopy Discharge Instructions (CUSTOM) Cystoscopy Voiding after the procedure: there may be some pain, burning, urgency, frequency and blood tinged urine following the procedure. These symptoms usually resolve within 2-5 days. Drink the amount of fluid it takes to keep the urine pink to yellow or clear in color. Drinking enough water and fluids will help to ease any discomfort after your procedure. If you are having problems that seem out of the ordinary, please call. If unable to contact your physician and you feel it is an emergency, go to the nearest emergency room or call 911 Diet you may resume your normal diet. Activity you may resume your normal activities Call if you have a fever over 100 degrees. Follow Up Care 10/10/2023 15:32:46 With:Zulema Joya Address:Unknown When: Unknown Comments:Office to schedule follow up in 2 months with PVR With:Gemma Blanco Address:Unknown When: Unknown [facility]06-18-2024 Note [id number] NoteCystoscopy ? Voiding after the procedure: there may be some pain, burning, urgency, frequency and blood tingedurine following the procedure. These symptoms usually resolve within 2-5 days. Drink the amount of fluid it takes to keep the urine pink to yellow or clear in color. Drinking enough water and fluids will help to ease any discomfort after your procedure. ? If you are having problems that seem out of the ordinary, please call. ? If unable to contact your physician and you feel it is an emergency, go to the nearest emergency room or call 911 ? Diet ? you may resume your normal diet. ? Activity ? you may resume your normal activities ? Call if you have a fever over 100 degrees.[facility] 11-03-2023 Instructions* Patient Instructions* Sharda Fontaine LPN - 11/03/2023 9:40 AM EDT BMI was above normal measurement. Current weight: 115 kg (253 lb) Weight change since last visit (-) denotes wt loss 13 lbs Weight loss needed to achieve BMI 25: 107.7 Lbs Weight loss needed to achieve BMI 30: 78.6 Lbs Advised to Increase physical activity.Please bring all medicines, vitamins, and herbal supplements with you when you come to the office. Prescriptions will not be filled unless you are compliant with your follow up appointments or have a follow up appointment scheduled as per instruction of your physician. Refills should be requested at the time of your visit. documented in [facility] Work Phone: [phone]) 795-952005-17-2024 NoteChief Complaint referral HPI Staff Referral for dysuria, left flank pain and hematuria by Dr. Talbot. Pt was seen in [facility] ED 08/11/23 for urinary frequency and low back pain that had been ongoing at the time for a week. At that time she had been treated by PCP with [address] done 08/11/23 showed small non obstructing bilateral kidney stones and 2 small benign adenomas inthe left adrenal gland. Pt. states she does [...] with voice recognition artificial intelligence software, specifically [employer], [employer] and or [employer]. Substitutions may have occurred due to the [...] among others. The patient, after being informed ofprocedural details and after questions have been answered, [...] work, dexamethasone testing. 3. Dysuria (R30.0: Dysuria) [facility] ER 08/11/2023-urinary frequency, low back pain [...] daily with minimal intake of other fluids. Wediscussed bladder irritants and how these may contribute [...] fluid intake so jah (more content not included)...[facility]:Result Comment: Electronically Signed By: JOHNNA Joya APRN, [place] [facility]\.katie\Date and Time Signed: 10/06/23 12:54 [id number] Evaluation + Plan note Diagnostic Tests Pending * Cortisol 10/03/23 * Lab Miscellaneous-LC 10/03/23 * Lab Miscellaneous-LC 10/03/23 [facility] 01-10-2024 Evaluation note* Encounter Date Diagnosis Assessment Notes Treatment Notes Treatment Clinical Notes May, Pain, joint, knee, left (ICD-10 - M25.562) Pt declines PT at this time. Will attempt MRI. She declines Ortho referral at this time as well. MRI order sent [facility]. work note given for restrictions as she is unable to climb a lot of stairs due to pain. May, Uncontrolled hypertension (ICD-10 - I10) Reviewed labs w pt. No hypokalemia or other electrolyte abnormalities noted in Apr. [employer] Other 12-04-2023 Evaluation note* Encounter Date Diagnosis Assessment Notes Treatment Notes Treatment Clinical Notes Apr, Essential hypertension (ICD-10 - I10) [employer] Other 11-30-2023 Evaluation note* Encounter Date Diagnosis Assessment Notes Treatment Notes Treatment Clinical Notes Mar, Radicular syndrome of left leg (ICD-10 - M54.10) Agrees to imaging to r/o DDD or lumbar fracture. Mar, Leg pain, left (ICD-10 - M79.605) Discussed concern for DVT. US scheduled for today. [employer] Other 11-07-2023 Evaluation note* Encounter Date Diagnosis [...] verbalized understanding and agreement with treatment plan. [employer] Other 10-03-2023 Evaluation note* Encounter Date Diagnosis [...] Advised she limit NSAIDs and added omeprazole [employer] Other 03-30-2023 Evaluation note* Encounter Date Diagnosis Assessment Notes Treatment Notes Treatment Clinical Notes 30 Mar, 2023 Uncontrolled hypertension (ICD-10 - I10) [facility] Other 03-17-2023 Evaluation note* Encounter Date Diagnosis Assessment Notes Treatment Notes Treatment Clinical Notes Jul, Dysuria (ICD-10 - R30.0) [facility] Other [id number] NotePROCEDURE: XR ANKLE LT MIN 3 V, [...] Minimal degenerative joint disease. Electronically authenticated by: SAKRIS PALACIOS Date: 2022-05-06 07:13[facility]12-16-2022 NotePROCEDURE: XR ANKLE LT MIN 3 V, [...] Electronically authenticated by: SARKIS PALACIOS Date: 2022-05-06 07:13[facility]05-12-2022 NotePROCEDURE: XR ELBOW LT MIN 3 VIEWS HISTORY: Pain of left elbow joint , acute; limited range of motion COMPARISON: None. FINDINGS: BONES:No fracture, acute abnormality, or significant arthropathy. SOFT TISSUES:No visible soft tissue swelling. EFFUSION:None visible. OTHER: Negative. IMPRESSION: 1. Normal examination. Electronically authenticated by: SARKIS PALACIOS Date: 2021-09-30 16:50[facility] Narrative - ReportedHENRRY MELÉNDEZ is being seen for a consultation for blood pressure issues.-[facility] DO Work Phone: Evaluation noteNo InformationN[facility] Other Evaluation noteNo assessment information available [facility] Work Phone: Evaluation note* Diagnosis Onset Date Resolution Status Dysuria acute Hematuria acute Left flank pain acute [facility] Work Phone: Evaluation note* Diagnosis Palpitations- Primary Essential hypertension Unspecified essential hypertension Shortness of breath BMI 40.0-44.9, adult (Multi) Current smoker documented in this encounter [facility] Work Phone: History general Narrative - Reported* [...] LYSIS OF ADHESIONS 09/2015 Hospitalization History SEE [employer] Other History of Present illness Narrative* Patient [...] to retrieve her recent Holter monitor from [place] * 3. I suggested a trial of [...] diet * 6. Follow-up in 4 months [facility] [employer] Work Phone: History of Present illness Narrative* [...] diet * 5. Follow-up in 4 months [facility] DO Work Phone: Hospital course Narrative No data available for this section [facility] Discharge instructionsAmbulatory Orders* Referral to Urology Time Frame: 08/09/23, Location: None [facility] Work Phone: Hospital Discharge instructions No data available for this section [facility] progress note No data available for this section [facility] reason for referral (narrative)* Consultation (Routine) - Authorized Specialty Diagnoses / Procedures Referred By Contac t Referred To Contact Cardiology Diagnoses Essential hypertension Procedures Follow Up In Cardiology Bonny Meyer MD [address] [place] [address] 2, [address] [address] Bonny Meyer MD [address] [place] [address] [address], [address] [address] Referral ID Status Reason Start Date Expiration Date V isits Requested Visits Authorized [id number] Authorized 11/03/2023 11/02/2024 1 1 [facility] Work Phone: Summary Purpose Family History No [...] ure of right hand (M72.0) Referral Organization [facility] Referring Provider First Name Slime Referring Provider Last Name Antione Referring Provider Specialty Family [facility] Referred Organization [facility] Referred Provider Deisi Branch Referred Address [address],[place],[address] Referred Provider Specialty Orthopedic S urgery Referral [...] DATE CREATED AUTHOR AUTHOR'S ORGANIZ ATION 12/03/2022 [facility] DATE CREATED AUTHOR AUTHOR'S ORGANIZ ATION 12/03/2022 [employer] DATE CREATED AUTHOR AUTHOR'S ORGANIZ ATION 08/12/2023 [facility] DATE CREATED AUTHOR AUTHOR'S ORGANIZ ATION 11/04/2023 [facility] DATE CREATED AUTHOR AUTHOR'S ORGANIZ ATION 11/11/2023 [facility] DATE CREATED AUTHOR AUTHOR'S ORGANIZ ATION 11/12/2023 [facility] DATE CREATED AUTHOR AUTHOR'S ORGANIZ ATION 12/10/2023 [facility] EPIC REASON FOR VISIT (unrecogniz ed section and content) Reason Comments Follow-up overdue Care Teams (unrecognized sec tion and content) Team Status: Active Member Role Status Dates Slime Talbot MD Primary Care Provider Active Team Status: Inactive Member Role Status Dates Slime Talbot MD Attending Provider Active St art: May 31, 2023 End: Vivian 10th, 2024 Team Status: Inactive Member Role Status Dates [...] August 09, 2023 End: August 09, 2023 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 [facility]. provides no warranty or guarantee of the accuracy or completeness of information in this document.
== END 2023-12-19 09:24 | disposition home or self-care (01) ==
LOC: NOMS 09:23
PROVIDERS: PCP Family Medicine; Visit Provider Obstetrics & Gynecology
DX: N88.8 Other specified noninflammatory disorders of cervix uteri (principal)
CPT/HCPCS: 76830; 76856

== ENCOUNTER 2024-02-06 07:15 | Outpatient (RCR) | payer OTHER, SELFPAY ==
[2024-02-06 10:38] LABS: Basophils Percent Auto 0.5 % (0.2-2.0); Eosinophils Absolute Auto 0.2 10^3/uL (0.0-0.7); Eosinophils Percent Auto 2.7 % (0.9-7.0); Hematocrit 43.6 % (36.0-48.0); Hemoglobin 14.3 g/dL (12.0-16.0); Immature Granulocytes Abs Auto 0.01 10^3/uL (0.00-0.03); Immature Granulocytes Pct Auto 0.2 % (0.0-0.5); Lymphocytes Absolute Auto 2.2 10^3/uL (1.2-3.8); Lymphocytes Percent Auto 35.4 % (20.5-60.0); Mean Corpuscular HGB Conc 32.8 g/dL (29.9-35.2); Mean Corpuscular Hemoglobin 30.2 pg (26.7-34.0); Mean Platelet Volume 9.8 fL (9.5-13.5); Monocytes Absolute Auto 0.4 10^3/uL (0.3-0.8); Monocytes Percent Auto 5.5 % (1.7-12.0); Neutrophils Absolute Auto 3.5 10^3/uL (1.4-6.5); Neutrophils Percent Auto 55.7 % (43.0-75.0); Platelet Count 261 10^3/uL (150-450); Red Blood Count 4.74 10^6/uL (4.20-5.40); Red Cell Distribution Width 12.9 % (11.0-15.0); White Blood Count 6.3 10^3/uL (4.0-11.0)
== END 2024-02-19 23:59 | disposition home or self-care (01) ==
LOC: HEMC 07:15
PROVIDERS: PCP Family Medicine; Visit Provider Internal Medicine Hematology & Oncology
DX: I82.402 Acute embolism and thrombosis of unspecified deep veins of left lower extremity (principal); D64.9 Anemia, unspecified; E83.10 Disorder of iron metabolism, unspecified; F17.210 Nicotine dependence, cigarettes, uncomplicated
CPT/HCPCS: 36415; 82728; 83540; 83550; 85025; G0463

== ENCOUNTER 2024-03-04 12:31 | Outpatient (OUT) | payer OTHER, SELFPAY ==
--- OUTSIDE RECORDS SUMMARY | 2024-03-04 12:42 | XMS_ITS | CCD ---
Author Organization [facility] Care Team Providers Care Managing Director Name Role Phone SHAUNA, DR JUAN CARLOS Mayberry Consulting Unavailable TALBOT, DR CARRIE Johnson Primary Care Unavailable TALBOT, DR CARRIE Johnson Attending Unavailable TALBOT, DR CARRIE Johnson Admitting Unavailable ZIEBROMERO, DR VLADIMIR Stevens Consulting Unavailable TALBOT, DR CARRIE Johnson Consulting Unavailable HORTENCIA, MG Consulting Unavailable HORTENCIA, MG Attending Unavailable HORTENCIA, MG Admitting Unavailable TALBOT, DR CARRIE Johnson Primary Care Unavailable TALBOT, DR CARRIE Johnson Primary Care Unavailable JANI, CHEKO Attending Unavailable JANI, CHEKO Admitting Unavailable TALBOT, DR CARRIE Johnson Primary Care Unavailable TALBOT, DR CARRIE Johnson Attending Unavailable TALBOT, DR CARRIE Johnson Admitting Unavailable TALBOT, DR CARRIE Johnson Primary Care Unavailable JANI, CHEKO Attending Unavailable JANI, CHEKO Admitting Unavailable TALBOT, DR CARRIE Johnson Primary Care Unavailable TALBOT, DR CARRIE Johnson Attending Unavailable TALBOT, DR CARRIE Johnson Admitting Unavailable TALBOT, DR CARRIE Johnson Primary Care Unavailable WEST, DR JUAN CARLOS Mayberry Attending Unavailable WEST, DR JUAN CARLOS Mayberry Admtariq Unavailable WEST, DR JUAN CARLOS Mayberry Consulting Unavailable TALBOT, DR CARRIE Johnson Primary Care Unavailable WEST, DR JUAN CARLOS Mayberry Attending Unavailable WEST, DR JUAN CARLOS Mayberry Admtariq Unavailable WEST, DR JUAN CARLOS Mayberry Consulting Unavailable TALBOT, DR CARRIE Johnson Primary Care Unavailable WEST, DR JUAN CARLOS Mayberry Attending Unavailable WEST, DR JUAN CARLOS Mayberry Admitting Unavailable ZIEBER, DR VLADIMIR Stevens Consulting Unavailable TALBOT, DR CARRIE Johnson Consulting Unavailable TALBOT, DR CARRIE Johnson Primary Care Unavailable TALBOT, DR CARRIE Johnson Attending Unavailable TALBOT, DR CARRIE Johnson Admitting Unavailable ZIEBER, DR VLADIMIR Stevens Consulting Unavailable TALBOT, DR CARRIE Johnson Primary Care Unavailable JANI, CHEKO Attending Unavailable JANI, CHEKO Admitting Unavailable JANI, CHEKO Consulting Unavailable WEST, DR JUAN CARLOS Mayberry Consulting Unavailable TALBOT, DR CARRIE Johnson Primary Care Unavailable TALBOT, DR CARRIE Johnson Attending Unavailable TALBOT, DR CARRIE Johnson Admitting Unavailable TALBOT, DR CARRIE Johnson Consulting Unavailable DIAB, ELY Consulting Unavailable DIAB, ELY Attending Unavailable DIAB, ELY Admitting Unavailable TALBOT, DR CARRIE Johnson Primary Care Unavailable HAY, DR GERONIMO Consulting Unavailable HAY, DR GERONIMO Attending Unavailable HAY, DR GERONIMO Admitting Unavailable TALBOT, DR CARRIE Johnson Primary Care Unavailable POPPY GREEN Consulting Unavailable Carrie Talbot Unavailable Carrie Talbot Unavailable Unavailable Unavailable Mitch, Dr. Bethea Referring Unavaila ble Mitch, Dr. Bethea Attending Unavaila MD CARRIE Jules Primary Care Unava ilMD CARRIE Frey Primary Care Unava ilable Mitch, Dr. Bethea Referring Unavaila ble Mitch, Dr. Bethea Attending Unavaila MD Carrie Jules Attending Provider Carrie Talbot Admitting Unavailable Carrie Talbot Attending Unavailable CARRIE TALBOT Primary Care Physician Carrie Talbot MD Primary Care Provider [phone] BONNY MEYER Attending Unavailable CARRIE TALBOT Primary Care Unavailable Orpearl Zulema X Attending Unavailable Orzech Zulema X Attending Unavailable CARRIE TALBOT Referring Unavailable Gemma Blanco Attending Unavailable Gemma Blanco Referring Unavailable Gemma Blanco Admitting Unavailable ZOLTAN HENDERSON Attending Unavailable ZOLTAN HENDERSON M Referring Unavailable DOREENNIECY COLONY Attending Unavailable DOREENNIECYY Attending Unavailable DOREENNIECY QuezadaY Attending Unavailable Orzech, Zulema X Attending Unavailable Mikhail VENEGAS Attending Unavailable CARRIE TALBOT Referring Unavailable Allergies Allergy Classification Reported Allergen(s) Allergy Type Date of Onset Reaction(s) Facility Cephalosporins (antibiotic) (1 source) cefdinir Drug Allergy 08-08-19 24 Unknown [facility] Opioid Agonists (1 source) Codeine Drug Allergy 05-25-19 24 Hives, Unknown [facility] Work Phone: Quinolones (antibiotic) (1 source) Ciprofloxacin Drug Allergy 11-03-19 24 Other [facility] (5 sources) Cefuroxime Drug Allergy Unknown [facility] Other (18 sources) Codeine; Translations: [CODEINE] Drug Allergy 05-25-19 Weal (disorder) [facility] (5 sources) Pseudoephedrine Drug Allergy Unknown [facility] Other (2 sources) cefdinir; Translations: [cefdinir] Drug Allergy 08-08-19 24 Other [facility] 3 Repository (6 sources) Ceftin *CEPHALOSPORINS* Propensity to adverse reactions 02-12-20 13 Unknown [facility] Other (6 sources) Pseudoephedrine HCl *NASAL AGENTS - SYSTEMIC AND T Propensity to adverse reactions 02-12-20 13 Unknown [facility] Other (4 sources) Cephalosporins (Antibiotic) Allergy to substance 05-31-19 [facility] (4 sources) Pseudoephedrine HCl *NASAL AGE Allergy to substance 05-31-19 24 [facility] (7 sources) Acetaminophen / Dextromethorphan / Doxylamine / Pseudoephedrine; Translations: [APAP/dextromethorp dwyer/doxylamine/PSE] Drug Allergy Unknown (qualifier value) [facility] (8 sources) Ciprofloxacin; Translations: [ciprofloxacin] Drug Allergy 11-03-19 Unknown (qualifier value), Weal (disorder) [facility] (2 sources) Acetaminophen; Translations: [acetaminophen] Drug Allergy [facility] Repository Medications Current Medications Medication Drug Class(es) Dates Sig (Normalized) Sig (Original) amLODIPine 10 mg oral tablet (10 sources) Dihydropyridine Calcium Channel Josefina Start: 06-17-2022 End: 11-03-2023 take 1 tablet [...] May, Active dexamethasone 1 mg oral tablet (5 sources) Corticosteroid Start: 10-03-2023 take 1 tablet by mouth once in the evening dexamethasone 1 mg oral tablet 1 mg = 1 tab(s), Oral, Once, Take at 11 PM; Have cortisol level drawn at 8 AM the next day, # 1 tab(s), Refills(s) 0, Pharmacy: [facility] 1155, 163, cm, 10/03/23 10:16:00 EDT, Height/Length Dosing, 113.5, kg, 10/03/23 10:16:00 EDT, Weight Dosing Start Date: 10/09/23 Status: Ordered famotidine 20 mg oral tablet (6 sources) Histamine-2 Receptor Antagonist Start: 10-03-2023 take 20 mg by mouth once daily before mealtime Pepcid AC 20 mg, Oral, Daily Start Date: 10/03/23 Status: Ordered ferrous sulfate 325 mg oral tablet (5 sources) take 1 tablet by mouth every twenty-four hours meclizine hydrochloride 12.5 mg oral tablet (5 sources) Antiemetic take 1 tablet by mouth every twelve hours methylPREDNISolone 4 mg oral tablet (10 sources) Corticosteroid Start: 06-10-2022 24 hr metoprolol succinate 25 mg extended release oral tablet (19 sources) beta-Adrenergic Josefina Start: 08-11-2022 End: 11-02-2024 take 1 tablet by mouth once daily metoprolol 25 mg ER Tab 25 mg = 1 tab(s), Oral, Daily Start Date: 10/03/23 Status: Ordered 24 hr mirabegron 50 mg extended release oral tablet (2 sources) beta3-Adrenergic Agonist Start: 11-07-2023 take 1 tablet by mouth once daily mirabegron 50 mg oral tablet, extended release 50 mg = 1 tab(s), Oral, Daily, # 30 tab(s), Refills(s) 11, Pharmacy: [facility] 1155, 163, cm, 10/03/23 10:16:00 EDT, Height/Length Dosing, 113.5, kg, 10/03/23 10:16:00 EDT, Weight Dosing Start Date: 11/07/23 Status: Ordered omeprazole 40 mg delayed release oral capsule (9 sources) Proton Pump Inhibitor Start: 08-09-2023 take 1 capsule by mouth once daily Omeprazole Active 1 CAP PO Daily August 09, 2023 12:00am Free[employer] capsule 30 minutes before morning meal Orally Once a day; Note: Source Status: Taking; Refills: 3; Provider: Ronaldo Johnson take 1 capsule by mouth once [...] Feb, Active spironolactone 25 mg oral tablet (20 sources) Aldosterone Antagonist Start: 024 End: 025 take 1 tablet by mouth once daily spironolactone 25 mg Tab 25 mg = 1 tab(s), Oral, Daily Start Date: 10/03/23 Status: Ordered Start: 05-14-2022 take 1 tablet by aida once daily Spironolactone 25 MG Oral Tablet TAKE ONE TABLET BY MOUTH DAILY Quantity: 90 Refills: 0 Ordered: 17-May-2022 DO Start : 14-May-2022 Active tiZANidine 4 mg oral capsule (2 sources) Central alpha-2 Adrenergic Agonist take 1 capsule by mouth once daily at bedtime as needed tiZANidine HCl 4 MG 1 capsule as needed Orally qhs prn for 15 days Active valsartan 40 mg oral tablet (4 sources) Angiotensin 2 Receptor Josefina Start: 4 take 1 tablet by mouth twice daily valsartan 40 mg Tab 40 mg = 1 tab(s), Oral, BID, Refills(s) 0 Start Date: 02/01/24 Status: Ordered Start: 01-18-2024 take 1 tablet by aida th twice daily Valsartan (Diovan) 40 mg tablet Active 40 MG PO Twice daily January 18, 2024 12:00am Start: 11-03-2023 End: 11-02-2024 take 1 tablet by mouth once daily Diovan 160 mg Tab 160 mg = 1 tab(s), Oral, Daily, # 30 tab(s), Refills(s) 0 Start Date: 01/30/24 Status: Ordered Completed/Discontinued Medications Medication Drug Class(es) Dates Sig (Normalized) Sig (Original) losartan potassium 50 mg oral tablet (20 sources) Angiotensin 2 Receptor Josefina Start: 08-14-2023 End: 01-18-2024 take 1 tablet by mouth once daily Losartan Discontinued 0 .ROUTE .COMPLEX August 14, 2023 1:25pm January 18, 2024 11:19am TAKE ONE TABLET BY MOUTH ONCE DAILY 30 Start: 07-15-2023 End: 11-03-2023 take 1 tablet by mouth once daily Losartan Discontinued 50 MG PO Daily August 09, 2023 12:00am August 14, 2023 1:25pm FreeTextSig: TAKE ONE TABLET BY MOUTH ONCE DAILY; Note: Source Status: Taking; Refills: 3; Qty: 30 Each; Provider: Ronaldo Palencia ( ) Start: 06-17-2022 take 1 tablet by aida th once daily Losartan Potassium 50 MG Oral Tablet TAKE ONE TABLET BY MOUTH ONCE DAILY Quantity: 30 Refills: 0 Ordered: 18-Jul-2022 DO Start : 17-Jun-2022 Active sulfamethoxazole 800 mg / trimethoprim 160 mg oral tablet (3 sources) Dihydrofolate Reductase Inhibitor Antibacterial, Sulfonamide Antimicrobial Start: 08-03-2023 End: 01-18-2024 take 1 tablet by mouth twice daily Sulfamethoxazole-Trimethoprim Discontinued 1 TAB PO Twice daily August 03, 2023 12:00am January 18, 2024 11:19am Problems Active Problems Problem Classification Problem Date Documented Da te Episodic/Chronic Abdominal pain (17 sources) Pain in female pelvis; Translations: [Pelvic and perineal pain] Onset: 08-09-2023 Episodic Calculus of urinary tract (4 sources) Kidney stone; Translations: [Calculus of kidney] Onset: 4 Episodic Cardiac dysrhythmias (7 sources) Palpitations; Translations: [Palpitations] Onset: 3 11-03-2023 Episodic Conditions associated with dizziness or vertigo (11 sources) Benign paroxysmal positional vertigo; Translations: [Benign paroxysmal vertigo, bilateral] Episodic Coronary atherosclerosis and other heart disease (16 sources) Coronary arteriosclerosis; Translations: [Atherosclerotic heart disease of rampart coronary artery without angina pectoris] 09-28-2023 Chronic Diabetes mellitus without complication (12 sources) Other abnormal glucose; Translations: [Hyperglycemia] Onset: 2 Episodic Esophageal disorders (12 sources) Gastroesophageal reflux disease without esophagitis; Translations: [Gastro-esophageal reflux disease without esophagitis] Chronic Essential hypertension (20 sources) Essential (primary) hypertension; Translations: [Hypertensive disorder] Onset: 3 Chronic Gastrointestinal hemorrhage (4 sources) Rectal hemorrhage; Translations: [Hemorrhage of anus and rectum] Onset: 4 01-18-2024 Episodic Genitourinary symptoms and ill-defined conditions (3 sources) Stress incontinence (female) (male); Translations: [Genuine stress incontinence] Onset: 4 Chronic Genitourinary symptoms and ill-defined conditions (20 sources) Dysuria; Translations: [Dysuria] Onset: 4 Episodic Osteoarthritis (1 source) Primary osteoarthritis, left ankle and foot; Translations: [PRIMARY OSTEOARTHRITIS LT ANK FOOT] Onset: 2 Chronic Other aftercare (1 source) Other termite renewal inspector (current) drug therapy; Translations: [OTH ORTHOTIC/PROSTHETIC CLINICIAN CURRENT DRUG THERAPY] Onset: 3 Episodic Other and unspecified benign neoplasm (1 source) Benign neoplasm of adrenal gland; Translations: [Benign neoplasm of unspecified adrenal gland] Onset: 4 Episodic Other and unspecified benign neoplasm (2 sources) Adrenal adenoma 01-30-2024 Episodic Other connective tissue disease (1 source) [...] Episodic Other diseases of bladder and urethra (2 sources) Detrusor overactivity; Translations: [Overactive bladder] Onset: 4 Chronic Other diseases of bladder and urethra (2 sources) Overactive bladder 01-30-2024 Chronic Other endocrine disorders (1 source) Disorder of adrenal gland; Translations: [Other specified disorders of adrenal gland] Onset: 4 Chronic Other female genital disorders (11 sources) Abnormal uterine bleeding; Translations: [Abnormal uterine and vaginal bleeding, unspecified] Chronic Other female genital disorders (1 source) Noninflammatory cervical disorder; Translations: [Noninflammatory disorder of cervix uteri, unspecified] Onset: 4 Episodic Other female genital disorders (2 sources) Lesion of cervix 01-30-2024 Episodic Other lower respiratory disease (5 sources) Shortness [...] Episodic Other nutritional; endocrine; and metabolic disorders (5 sources) Body mass index 40+ - severely obese; Translations: [Morbid obesity] Onset: 4 11-03-2023 Chronic Other nutritional; endocrine; and metabolic disorders (2 sources) Body mass index (BMI) 40.0-44.9, adult; Translations: [Body mass index (BMI) 40.0-44.9, adult (Multi)] Onset: 4 Chronic Other nutritional; endocrine; and metabolic disorders (1 source) Obese class III 02-01-2024 Chronic Other nutritional; endocrine; and metabolic disorders [...] thrombosis] Onset: 2 Episodic Residual codes; unclassified (16 sources) Obstructive sleep apnea syndrome; Translations: [Obstructive sleep apnea (adult) (pediatric)] 09-28-2023 Chronic Spondylosis; intervertebral disc disorders; other back problems (20 sources) Cervicalgia; Translations: [Radiculopathy, cervical region] Onset: 2 Episodic Sprains and strains (11 sources) Sprain of left ankle; Translations: [Sprain of other ligament of left ankle, initial encounter] Episodic Substance-related disorders (10 sources) Nicotine dependence, cigarettes, uncomplicated; Translations: [Smoker] Onset: 3 11-03-2023 Chronic Comment on above: 5-10 cigarettes jessi y; Unclassified (1 source) CONTACT W/AND (SUSP) EXPOS COVID-19; Translations: [CONTACT W/AND (SUSP) EXPOS COVID-19] Onset: 3 Unclassified (3 sources) LOW BACK PAIN, UNSPECIFIED; Translations: [LOW BACK PAIN, UNSPECIFIED] Onset: 2 Unclassified (2 sources) COUGH, UNSPECIFIED; Translations: [COUGH, UNSPECIFIED] Onset: 2 Unclassified (1 source) Finding of sensation of abdomen 02-14-2024 Past or Other Problems Problem Classification Problem [...] Test Name Value Interpretation Reference Range Facility Ambulatory Visit Summaryon 0 01-30-2024 Ambulatory Visit Summary Ambulatory Visit Summary HENRRY MELÉNDEZ :1970 Visit Date:01/30/2024 Ambulatory Visit Instructions Your Diagnosis OAB (overactive bladder) Gross hematuria Adrenal adenoma Kidney stones Stress incontinence Lesion of cervix Your Care Team Attending Physician - Toan PARK, JOHNNA, Zulema Lema Primary Care Physician - CARRIE TALBOT MD This Is Your Medications List dexamethasone (dexamethasone 1 mg oral tablet) dexamethasone (dexamethasone 1 mg oral tablet) famotidine (Pepcid AC) metoprolol (metoprolol 25 mg ER Tab) mirabegron (mirabegron 50 mg oral tablet, extended release) spironolactone (spironolactone 25 mg Tab) valsartan (Diovan 160 mg Tab) Procedures Performed Cystoscopy (11/07/2023), Cholecystectomy, Hysteroscopy, Stripping of vein. What to do next Scheduled Follow-Up Appointments Monday 3:40 PM EDT With: Mikhail VENEGAS MD Where: [facility] [address], [address], [place] [phone]- Medications What How Much When Why Instructions Unchanged dexamethasone (dexamethasone 1 mg oral tablet) 1 Tablets By Mouth Once Take at 11 PM; Have cortisol level drawn at 8 AM the next day Unchanged dexamethasone (dexamethasone 1 mg oral tablet) 1 Tablets By Mouth Once Take at 11 PM; Have cortisol level drawn at 8 AM the next day Unchanged famotidine (Pepcid AC) 20 Milligram By Mouth Once Unchanged metoprolol (metoprolol 25 mg ER Tab) 1 Tablets By Mouth Every day Unchanged mirabegron (mirabegron 50 mg oral tablet, extended release) 1 Tablets By Mouth Every day OAB (overactive bladder) Unchanged spironolactone (spironolactone 25 mg Tab) 1 Tablets Unchanged valsartan (Diovan 160 mg Tab) 1 Tablets By Mouth Every day Allergies Cipro (Unknown) Nyquil Cold Medicine (Unknown) Problems Ongoing - Any problem that you are currently receiving treatment for. Adrenal adenoma ASHD (arteriosclerotic heart disease) Dysuria Essential hypertension GERD without esophagitis Gross hematuria Kidney stones Lesion of cervix OAB (overactive bladder) Obstructive sleep apnea Stress incontinence Patient Survey You may receive a survey via text or e-mail asking about your office visit. Please share your experience with us by completing your survey. We appreciate your feedback and thank you for choosing us for your care. Normal [facility] Reminderson 01-30-2024 Reminders Reminders From: Yvette Hilliard To: EU - Administrative; Sent: 01/30/2024 10:26:31 EDT Show up: 03/22/2024 10:26:00 EDT Subject: Ambulatory Reminder Due Date/Time: 05/31/2024 10:26:00 EST Reminder/Recall Patient needs scheduled with AO for a 4M f/u, due back in May of 2024 [facility] Urology Office/Clinic Noteon 01-30-2024 Urology Office/Clinic Note Urology Office/Clinic Note HPI Staff KML pt here for f/u to cysto. Last OV 10/03/23 by ESTEBAN. Dx: gross hematuria, adrenal mass, dysuria, kidney stones. *Started on Myrbetriq ER 50mg qd at time of cysto. Neg CTU 11/01/23 [facility]. S/p Cysto 11/07/23. Neg cytology 11/07/23. PVR __. Pt states she does not feel the meds are working or doing what they should. pt states she feels bloated and at times following urination she feels her bladder is stretched too far and it is uncomfortable. Dysuria: NO Incomplete bladder emptying: NO Hematuria: NO Frequency: AT LEAST 1X PER HOUR Urgency: YES, NOT EVERYTIME Nocturia: 1X Stream: NORMAL Leaking: AT TIMES Post void dripping: NO Wearing pads/ Depends: PADS Urge incontinence: UNSURE Stress incontinence: YES Incontinence without Sensory Awareness: YES Abdominal pain: NO Flank pain: NO Sexual complaints: NO History of Present Illness I have reviewed and verified the staff HPI to be accurate for this encounter. Portions of this record may have been created with voice recognition artificial intelligence software, specifically [employer], [employer]PU and or [employer]ors[employer]. Substitutions may have occurred due to the inherent limitations of voice recognition and artificial intelligence software. Physical Exam General: Well developed, well nourished, in no acute distress. Assessment/Plan 1. OAB (overactive bladder) (N32.81: Overactive bladder) Frequency at least every hour Started on Myrbetriq 50 mg at the time of cystoscopy. Patient states she is tolerating this well without any noticeable side effects. However, she feels that she has not had any improvement of her urinary symptoms. She feels that she has a lot of pressure in her abdomen. Does admit that she has had intermittent episodes of diverticulitis. We discussed the relationship between bladder and bowel, recommend bowel regimen to promote regular bowel movements. She does have follow-up scheduled with GI later this month, plan for colonoscopy. PVR today 12 We discussed increased dose of Myrbetriq versus changed to anticholinergic. Patient states she would like to discontinue use of medication at this time, declines starting different medication. She feels that a lot of this may be bowel related and would like to reevaluate after seeing GI. -Stop Myrbetriq per patient preference -Follow-up 3 to 4 months to reassess symptoms 2. Gross hematuria (R31.0: Gross hematuria) UA today with trace blood, trace leukocytes. Patient denies any symptoms of UTI at this time. Previously reported intermittent gross hematuria without dysuria. CT 08/11/2023-small nonobstructing bilateral stones Denies noticing any recent stone passing. [1] CTU at [facility] 11/01/2023 without abnormality explain patient's hematuria Cystoscopy 11/07/2023 with K mL-normal urethra, normal bladder with mild trabeculation, no bladder tumors, lesions, stones, or foreign bodies. No vaginal atrophy. Moderate urethral hypermobility and no TEAGAN witnessed. Able to correctly identify pelvic muscles with coaching, weak recruitment. No significant prolapse, nontender pelvic floor muscles. Cytology 11/07/2023 neg -Continue to monitor 3. Adrenal adenoma (D35.00: Benign neoplasm of unspecified adrenal gland) CT 08/11/2023-2 benign adenomas in the left adrenal gland. [2] Negative metabolic workup -Repeat imaging in 1 to 2 years to ensure no growth 4. Kidney stones (N20.0: Calculus of kidney) CT 08/11/2023-small nonobstructing bilateral stones CTU 11/01/2023 without mention of calcification Patient denies ever having stone episode. -Continue to monitor 5. Stress incontinence (N39.3: Stress incontinence (female) (male)) Not noted at time of the cystoscopy. -Continue PFPT at home 6. Lesion of cervix (N88.9: Noninflammatory disorder of cervix uteri, unspecified) Incidentally found on CT to 11/01/[address] Navarrete for this, biopsy scheduled 7. 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, SENIOR J2EE DEVELOPER-C, Zulema X, FAM, URL Additional Instructions: 3-4 mos Patient Education Adrenal Adenoma Steps to Quit Smoking Overactive Bladder, Adult Hematuria, Adult Dietary Guidelines to Help Prevent Kidney Stones Problem List/Past Medical History Ongoing Adrenal adenoma ASHD (arteriosclerotic heart disease) Dysuria Essential hypertension GERD without esophagitis Gross hematuria Kidney stones Lesion of cervix OAB (overactive bladder) Obstructive sleep apnea Smoker Stress incontinence Historical No qualifying data Procedure/Surgical History Cystoscopy (11/07/2023), Cholecystectomy, Hysteroscopy, Stripping of vein. Medications Diovan 160 mg Tab, 160 mg= 1 tab(s), Oral, (more content not included)... [facility] Comment on above: Result Comment: Elec tronically Signed By: JOHNNA Joya APRN, Zulema Lema\.br\Date and Time Signed: 01/30/24 10:50 EDT Urine Cytology ([facility])on 0 11-12-2023 Microscopic exam Cytology (U) [Interp] Diagnosis Info Invalid Interpretation Code [facility] Comment on above: Result Comment: A:Ur ine,Cystoscopy:Cystoscopy Interpretation - MicroScopic Description - Adequacy - Gross Description Site ID:A color Light Yellow fixative Alcohol Specimen designated Cystoscopy received in alcohol preservative and labeled with the patient?s name, consists of 100ml clear light yellow fluid. Electronically signed by : on: 11/12/2023 10:13:54 Performed By: #### 1 [id number] #### [facility] [address] [place] [id number] Coding Summary.on 11-09-2023 Coding Summary. JWPVApmj35CLi5nZs+PG hl YWQ+UW6UKVIoD06nvXCkdH 4uM3FNOVkNAuuiCWHLIXwR OtWbxbSfXS7fqVNrMNSz IC8+AI1uMBRsXmxhbMOjx5 G4xJP9M37uvy2kCSaopDP9 LSNpLuCadiskz8drpIm5IP cuNmluOyBt QPVzoF82KKO1aP18Iz99dT XzgWShz6zouJe2DnAcDGSm FSJ7oBuxNBdks7DaGBSsK1 8htMTzt1P0 QJFayFtvyOHkYgTrtJA8wY 8cXBmysckhz9zilycrUxa4 uw08hIUvd1J1lBH7U3Oghw F1VZSpqFAl HgxijGOKpR1ixcrpy4klrb zfGyMkNCTnWJx6DTu8ULZm aWkoCjUpCS65URD7XVOdxn DwW3DeORMz sDwlPtK8u3V1Pp7NE4NRDa agB4AHQVYXOMopdRD+PC90 wr54Q5StJmxrPcf7JVEgVN V2tKR8qL9r ZVScUKxni7O8cBF7G2Trdr Iayo3ab1yhJLVsUHsyR38l dUHzy0N0WXGzqYK7BEHvrT sfQsRyrC74 Oyc+GJTkcEqdy6IpCzxuc2 ant8wkkKb5CviqKYVzjqUg nJdfOPO4d0VlKe9tCAOgaM T9oVR9bC4d TcDsOyC1RKsgR318PgOgzA IeBtiwD17fG3NimZY+PHRy Juw9YFTahXgaJL0pL4NuQS RpbmctbGVm sWhyMF6nMHDwmxhnWEEqkQ 7qUUPhB1o7QcOlMrM2MDlv I9YnLKTcngkqCv14vJ7bKi RmUfW6TBlr P6DfzbD4OQXdgMXiNKkwPW J5H86hz5T6NETrYMEzLLQ8 tMV8pQ1vuXupzghndJMlcZ sgdmVydGlj CGleHIdpN914UQAkbEewYh NvZGluZyBEYXRlOiAgMDYv MjAvMjAyNDwvdGQ+PHRkIH T8gFrkOSNs lLScZIjgDr1clFsgvCaqOA 1qEITsozstJSYlkF8gLJAl eCZifRhhHW4jTJTrjinyp3 52XcAdYIC1 KOFmxOPyJ3RfbA5kRzIiCP UhVLBuY0DqkVTnURmuC423 NGmyXyU3VSNvydBmU2AaJU FsaWduOiB0 s6B1Yt1No7FhqjnjP2VdcI QkOqBlIaddZMm0A9RwOwde dHI+MJ03KTTiXU01VKg7IP F7eSlePCyp SJNpS0YqiF1kAhYkERDfZA RkOyc+PHRhYmxlIHdpZHRo EIshFOPuEqEvlHukMJ0yNq 9yZGVyLWNv xVrbkGXuTtQcm5skGTXdGQ lqDG1bqLfcC8WxoAL5TKNl c7r2Jw58R75jA6ZuiNW+PG DthWT0xQB5 nQ7sFvLiQjT7YPoaI467Eb MexCSiUrwfd5ifw0qqeRv2 VbT3EJYpvzBtkIpjLTB0x8 TdGr16M19z IHdpZHRoPSIxNSUiIHZhbG ywnp2inF0jCg9+PGNvbCB3 fAB7vQ9mWnFeXqA0KOufB8 49InRvcCIv Otbfp8fyh6rysZx4QhMaUO YzumHdrAtbQHI2s1YgYg00 T5VoeMpgx9PvJec9xs84wM Nqq8V7yDC5 J2ViYEUdywqqrENkkNihGO 9hNMUidhrpHBZqwO6mQPXf W7g2QfMoStX3JWclO8Tuiy G5TDKrsNQy XBQmmXPXxC8msydst9tetc jcSpUcVVFjDEa6RMo9HVKv aIxvGtZnFQX3CnU9ICB7dL XayK0wcCbc rkxvqA8qTja+PUN8lVIauX SIYG3hZmiunWK+PHRkIHN0 tZsnXHztSOSrnY9lENPvT2 o9VnSsWzR0 TGubL9VpqkR1KHHsvZStPI AoyZJAiH3nbvadi3ocpalc HfGtRJObTXv3NUe3XOQopW duOiBsZWZ0 TkD7ZAO3wABwvM3qsIkrip rvfK1aPyh+QmlydGggRGF0 FIk1T4EiBep2JWQndMpmZY 0ncGFkZGlu Bb7fmFfagEjlGX8pAPPaqq gcj999UlQoe6rcILKgfKMw FPrhFJE8K48ca5N7JKOzRE WyBTE1gWG1 aV9fwDntwsotgTXrpWrktr KykVvxKHirTDarG425NKHk jMnmAhCzBAy0U3TdQey5WU CyiBegUZ0j aHJcBRlhFx2npMxexIrmHB 2kSOVdaoekl181HyObh6ph HOLaqXUjEEouKRZ7K58jh4 G7JDVbFRAe CVH3cER8jV0waAdgedxkfJ VmdDsgdmVydGljYWwtYWxp U182JEAcmFivYkSczJw2T4 TsMla3OEOl xCmuYB2laXIvOYxkLi9ggG jyzLqaQD4wGFIotcxej286 BvRcs8mrNWOwcYXoLBfjHL X2F01gh1J4 KURhFAZfNHC2pRC9kL5yiF lnbjogbGVmdDsgdmVydGlj DJgmLPxzI592OXVjlVzjTs BhdGllbnQg DGqiGXr2K7TvDpdchRB+PC 22VUAyOA27iPTnyNIgi4zu kBw1FlRpJHRvFRB5oNqzSK svw2WiQGQk L12lvHYjk3H9GLXwhDwdiU OzViKphAF3oI0lKQpvbhsp e0polgnyOjlxa7pbub39mN 98G54nWUui ZHRoPSIzMCUiIHZhbGlnbj 4xrT3xDj6+CSJrbPC8gKN7 sM2iMZHxFnF8CMuxH080Yj RvcCIvPjxj c9twf7xhrLg8FnP2VLWhuy QipEeiJFV2o1SkNs14L72n IHdpZHRoPSIyMCUiIHZhbG nbbw8ryA9i Ii8+OLPynCD5bLD1hU0uAc BdUkD5RGmyC999OfMapUQy ZqfwR12fL7TigHS+PHRyPj h0IEOwvXpl IT3zxXGhIQjnCj6aLJJ8Ln EzPvOfTGczA9XsTOQwuhlr fkqabPO1FKVjZLUpeX20Op 9udDogMTBw qMFGlF5uzewel1ymqvgyGw ToPDRuQEd8ZWr4XKAbyEvt ElHfYEY4HaZ4MHB9bEMooE 1hbGlnbjog hD3fI8QgYVEzxzdyRq25rP 5eAvCfOhT0DVmfBkj+UEhJ FYMWLWIEROFMMC3MDL59OY 15rUDsg4X7 rUU5I3RtLIFmmqehfvwwoS C8TUChHAVgyZ40oQMrAOkl Jz6qj1J5m455MDXbQAPxsP 96Oj9boBoy XMMptCHXuZ1jtzmfv2fwcl pqRoRvXDBcICk0EDa2RESm zCabSuTsVWD3JvH2KWI9yN QtrP9wxLor hxcsqJ7gWxd+MTIvMjcvMT z7KslyqVQ+YOPaEFZ4vUpo NWprVYIoqA5hKGTgW3d5Dp VjZzW5QPbx C0BpGCFxoyjyJb31lR6dRu AyFvH3DDmlS9ZjmqE9SICt yWKpZOveTLE6K21yp3N4IT MwMDAwMDA7 zJS0nP7smXvlfwiivEKmuY nmjvMcgRnjWGytUNfxS494 IHRvcDsnPjUxIFllYXJzPC 29LD71yANb v0J7gVO5G6EjVGXrbblhcl jtnRG3YTIrNHGirL73jBHp RMqwYm9zp7L3n181FQNyKT OznU63Dx8a fZjkGVQjuFYIyQ4sgqxnd6 wykzedGcYeHKIhUFa2VCl5 LHZxsMzlPuGxAJO5CjN7GR I2pSYeuT1o zOdbabamsH9sGne+RmVtYW boNB45MT59hBYyy4S0xHO5 Q7BhFJPduxbknpiqeXI2FT QmTDMgvL07 qOVzEWyaVo7yg5Y6z983SG UdZAPokO36Hj3gjYxwJPSv nRCAqE6iyhawb2rnhxmgGe AwMDAwMDt0 RYd8IWWesVomEaXrKBF8La S4FTB8qDHhdT1lnKjjtqog sO4uRhj+A4M6oSL0gEFpdA wvdGQ+PC90 cz61O1UuEnpdKhu0GKVnED I6sIJ9xK4hYYLfHZdmp8R3 tDE0V5AuhaHkwf3uw4fvLH FlROeoV07r rIJfl6T4PKWjaRY8TXQxkW zzGbMrfT10Mdt+PGNvbGdy t4WgAtnqh5yjr1nnbVd1Hp MwJSIgdmFs oMgrYQK6u5VfSf02V94iOZ dpZHRoPSIzMCUiIHZhbGln is5sjL8mXx7+QOGhlBA8qZ D9mJ0tIzLx KkM1DSliK933YzNxfFTsSu how0sla4hzzWn0HpGgEPBd nhOfbTudGKK9h0EuCa17E2 GugWoqi2Tt Crz4ba24vZGvm3R4aYM5U5 KeVNCyxjrlgJSlzKojGH5z ARIluspgKSGsdN5vRNHoL4 z9LsAcBoW5 IQrkD4ZzsuH9WAMyoZNcQV MlpUQPsF2vzrpkz9vgexdx XpDoTBQkFQl0QSp4GKIkjL duOiBsZWZ0 EfS2GKF4wTIywV3rhTrxvv ipbN4cLdl+OYq9r9qepIUc PJ9tlFB1CC99GU90aAHfu0 Z3kFZ6S3Jj DRZbwglqfkorcIJ7HDRzCX GmyR92Lf1hhCeyZj2nLSNh AUC5LAUdjLYqD9BikP0kTw AjMDAwMDAw B5LdhPOyCHeiN473IEviIb R7SLJerkSpO4OrVDQznPvm GsF2m6C9Dx6CYZ82ZW86HA 49dETth8X7 bEY8V2LtJRPyswioceqcaL A6VUJlBJElpF09Fh0dmKpl Xd9fLIOlNJN6ZBYcdRYgZ7 GqdY6iYqTf VJMdYQBbQ6VuiSOjCLubL1 75KYonCxR5ACOpyhRcG6Jv VWHgnBziCdN2c8T8Gh2WQo 07YG07MY57 tTRbp6Q1bSJ2G0ZwQQVrky ifjdjotWO8YNAjNXZjmL88 Ad7kuPrtWe1zPBMmSNC7JQ KkhFLdU4Sd sP5hOaZxTLHwYPAwY6MzfV NtEUfuS270URpaXbD1EQAd toMwX3UwHEIuyShsIoZ3s1 N2Hf3UCRzi qfo0M6DpXlpztMW+PC90YW BaCN74dHRvjXTzt2snxWk0 VgQqTNKuRXK2wHsnKWrfe0 TbEDUyH93d mZKlx9Z1CRJzy (more content not included)... [facility] Consent for Procedure/Surger yon 11-07-2023 Consent for Procedure/Surgery [id number]#1.0 0TIFF [facility] Consent for Treatmenton 10-20 Consent for Treatment [id number]#1.0 0TIFF [facility] Inpatient Patient Summaryon 11-07-2023 Inpatient Patient Summary [place] [id number] Clinical Summary Person Information Name: HENRRY MELÉNDEZ Age: 53 Years : 1970 Sex: Female PCP: CARRIE TALBOT MD Marital Status: Race: White Ethnicity: Non- or Language: French Visit Id: Visit Reason: GROSS HEMATURIA Speciality: Acuity: Enc Type: Outpatient Med Service: Surgery Arrival: 11/07/2023 09:24:15 Discharge: Dispo Type: Address: [address] [place] [id number] Provider Notes: Diagnosis: Gross hematuria; OAB (overactive [...] EU - Cystoscopy Discharge Instructions (CUSTOM) [facility] IntraOperative Documentson 0 11-07-2023 IntraOperative Documents [id number]#1.0 0TIFF [facility] Lab Reportson 11-07-2023 Lab Reports [id number]#1.0 0TIFF [facility] Main OR Intraoperative Recor don 11-07-2023 Main OR Intraoperative Record IntraOp Document Type FTURO Summary Primary Physician: Gemma Blanco MD Finalized Date/Time: 11/07/23 10:45:52 Pt. Name: HENRRY MELÉNDEZ/Sex: 1970 Female Med Rec #: [id number] Physician: Gemma Blanco MD Financial #: [id number] Pt. Type: O Room/Bed: / Admit/Disch: 11/07/23 [...] Evi Pitt Role Performed Surgeon - Primary Car Repairer - Primary Scrub - Primary Time In 11/07/23 10:25:00 11/07/23 10:25:00 11/07/23 10:25:00 Time Out 11/07/23 10:36:00 11/07/23 10:36:00 11/07/23 10:36:00 Procedure CYSTOSCOPY LOCAL(.) CYSTOSCOPY LOCAL(.) CYSTOSCOPY LOCAL(.) Comments Last Modified By: Grzegorz GARLAND, Magali Lantigua RN, Magali Lantigua RN, Magali Pitt 11/07/23 Soco Pitt 11/07/23 Soco P 11/07/23 10:30:29 10:30:29 10:30:29 [...] Position Verified Availability Equipment, Medication Time Out Francis HERNANDEZ, Gemma Siegel, Verified (If Participants Grzegorz GARLAND, Magali Applicable) Joselito Keith LPN, Jessica D Time Out Complete 11/07/23 10:25:00 Allergies Reviewed? [...] 10:40 Magali Lantigua RN 11/07/23 10:45 [facility] Main OR Preoperative Recordo n 11-07-2023 Main OR Preoperative Record Holding Area Document Type FTURO Summary Primary Physician: Gemma Blanco MD Finalized Date/Time: 11/07/23 09:53:28 Pt. Name: HENRRY MELÉNDEZ/Sex: 1970 Female Med Rec #: [id number] Physician: Gemma Blanco MD Financial #: [id number] Pt. Type: O Room/Bed: / Admit/Disch: 11/07/23 [...] JARETT Sanchez RN, Ruthann 11/07/23 09:53 [facility] Operative Reporton Operative Report Patient: HENRRY MELNÉDEZ Age: 53 years Sex: Female : 1970 [...] OAB and adrenal adenoma workup . [facility] Comment on above: Result Comment: Elec tronically Signed By: Gemma Blanco MD\.br\Date and Time Signed: 11/07/23 10:42 EDT Outpatient Surgery Discharge Instructionon 11-07-2023 Outpatient Surgery Discharge Instruction [id number] 0TIFF [facility] Outpatient Surgery Discharge Instruction [place] [id number] Patient Discharge Instructions PERSON INFORMATION Name: HENRRY [...] you have a fever over 100 degrees. I, HENRRY MELÉNDEZ, have received the attached patient education materials/instructions and have verbalized understanding: May we do a follow up call? Yes No I was present when discharge instructions were given Patient Signature Date Clinican/Nurse Signature ___ Date You may receive a survey from [employer] asking you to rate your care experience. Your feedback is important and will help us understand what we do well and how we can improve the quality of care we provide to you, your loved ones and our community. It?s an honor to serve you. Thank you for choosing [facility] Progress Note-Physicianon Progress Note-Physician Patient: HENRRY MELÉNDEZ [...] day, # 1 tab(s), Refills(s) 0, Pharmacy: [facility], 163, cm, 10/03/23 10:16:00 EDT, Height/Length Dosing, 113.5, kg, 10/03/23 10:16:00 EDT, Weight Dosing... dexamethasone 1 mg oral tablet: 1 mg = 1 tab(s), Oral, Once, Take at 11 PM; Have cortisol level drawn at 8 AM the next day, # 1 tab(s), Refills(s) 0, Pharmacy: [facility], 163, cm, 10/03/23 10:16:00 EDT, Height/Length Dosing, 113.5, kg, 10/03/23 10:16:00 EDT, Weight Dosing... mirabegron 50 mg oral tablet, extended release: 50 mg = 1 tab(s), Oral, Daily, # 30 tab(s), Refills(s) 11, Pharmacy: [facility], 163, cm, 10/03/23 10:16:00 EDT, Height/Length Dosing, 113.5, kg, 10/03/23 10:16:00 EDT, Weight Dosing Documented Medications Documented Pepcid AC: 20 mg, Oral, Once losartan 50 mg Tab: 50 mg = 1 tab(s) metoprolol 25 mg ER Tab: 25 mg = 1 tab(s), Oral, Daily spironolactone 25 mg Tab: 25 mg = 1 tab(s) Impression and Plan Assessment and Plan: Diagnosis: Adrenal adenoma (YHP96-SX D35.00, Working, Medical), Gross hematuria (SWQ67-AE R31.0, Discharge, Medical), OAB (overactive bladder) (YZT09-MP N32.81, Discharge, Medical), TEAGAN (stress urinary incontinence, female) (KER92-VQ N39.3, Working, Medical). 53 year old female [...] cysto neg -Follow up urine cytology [facility] Comment on above: Result Comment: Elec tronically Signed By: Francis HERNANDEZ, Gemma Siegel\.br\Date and Time Signed: 11/07/23 10:46 EDT RAD - CT Reporton 11-07-2023 RAD - CT Report [id number]#1.00 TIFF [facility] Urine Cytology ([facility])on 0 11-07-2023 Method of Extraction Cystoscopy [facility] Comment on above: Performed By: #### 1 [id number] #### [facility] Laboratory [address] Number of Jars 1 Invalid Interpretation Code [facility] Comment on above: Performed By: #### 1 [id number] #### [facility] [address] Specimen Cystoscopy [facility] Comment on above: Performed By: #### 1 [id number] #### [facility] [address] Type of Service Technical Only Normal [facility] Comment on above: Performed By: #### 1 [id number] #### [facility] Laboratory [address] [place] [address] Lab Reportson 10-25-2023 Lab Reports [id number]#1.0 0TIFF [facility] Lab Reportson 10-17-2023 Lab Reports [id number]#1.0 0TIFF [facility] Patient Educationon 10-06-19 Patient Education Urology Dysuria [...] these instructions at home: Medicines ? Take fbsb-cpe-ewpzhzm and prescription medicines only as told by [...] provider. Document Revised: 12/18/2020 Document Reviewed: 12/18/2020 [employer] Patient Education ? 2022 [employer] Hematuria, Adult Hematuria is blood in the [...] these instructions at home: Medicines ? Take neju-epx-jgguemo and prescription medicines only as told by [...] follow y (more content not included)... [facility] Formson 10-04-2023 Forms [id number]#1. 00TIFF [facility] Lab Reportson 10-04-2023 Lab Reports [id number]#1.0 0TIFF [facility] Ambulatory Visit Summaryon 0 10-03-2023 Ambulatory Visit Summary HENRRY MELÉNDEZ :1970 Visit Date:10/03/2023 Ambulatory Visit Instructions Your Diagnosis Dysuria Adrenal mass Gross hematuria Tests Performed CT Urogram -- Results Pending -- Please visit your patient portal for your results or contact your primary care physician. Your Care Team Attending Physician - JOHNNA Joya APRN, Zulema Lema Primary Care Physician - CARRIE TALBOT MD Referring Physician - CARRIE TALBOT MD This Is Your Medications List [...] Pharmacy Information [facility]: [address], [place] [id number] [phone] Allergies Cipro (Unknown) Nyquil Cold Medicine (Unknown) [...] for choosing us for your care. [facility] ED Note-Physicianon 08-16-19 ED Note-Physician [id number]#1.0 0TIFF [facility] Urine Cultureon 08-09-2023 Bacteria identified Cx Nom (U) 75,000 colonies/ml mixed bacterial skin contaminants 2 Days PERFORMED BY: [place] [address] PATHOLOGIST CREDIT AND COLLECTIONS REPRESENTATIVE ISABELA MUÑOZ M.D. Normal [facility] Comment on above: Performed By: #### C UU #### [address] Laboratory - Chemistry and C hemistry - challengeon 08-03-2023 Bilirubin Ql (U) Negative [facility] Glucose (U) [Mass/Vol] Negative [facility] Ketones Ql (U) Negative [facility] pH (U) 5.0 [pH] [facility] Specific gravity (U) [Rel density] 1.015 [facility] Urobilinogen (U) [Mass/Vol] 0.2 mg/dL [facility] Laboratory - Specimen inform ationon 08-03-2023 Appearance (U) clear [facility] Color (U) yellow [facility] Laboratory - Urinalysison Leukocyte esterase Test strip Ql (U) Negative [facility] Nitrite Ql (U) Negative [facility] Protein Ql (U) + [facility] No Panel Informationon 08-02 Urine Occult Blood + [facility] XR KNEE 4+ VIEWS LEFTon XR [...] Weight Tips; Status:Complete - Retrospective Authorization; Done: [id number] Some eating tips that can help you lose weight.; Status:Complete - Retrospective Authorization; Done: [id number] SocHx: Current smoker You need to quit smoking.; Status:Complete - Retrospective Authorization; Done: [id number] Tobacco Use Screening; Status:Complete; Done: [id number] You need to stop smoking. Though it is not easy, more than half of all adult smokers have quit. We encourage you to write down all the reasons you should quit smoking and set a quit date for yourself. Ask us how we can help. You may also call 4-329-DBMGAA PartyNOW for free resources and assistance.; Status:Complete - Retrospective Authorization; Done: [id number] Patient Instructions Please bring all medicines, vitamins, [...] evaluation for palpitation following discontinuation of her beta-josefina, hypertension, obesity. Since last time I saw her she feels her symptoms slightly improved. But continued to experience some palpitation midday. She has been taking her metoprolol during the night. Her recent Holter monitor showed mild sinus tachycardia but no significant tachyarrhythmia. Echocardiogram was normal Assessment 1. Symptoms of palpitation there is mild sinus tachycardia due to withdrawal of beta-josefina seem to be improving with reinstituting a smaller dose of beta-josefina 2. Hypertension seem to be better controlled [...] negative for complaint. Vitals Vital Signs Recorded: 55Tnz8130 09:55AM Heart Rate60, L Radial Gjyilvqp969, LUE, Sitting Jyafjzotl56, LUE, Sitting Height5 ft 4 in Osmzij555 lb BMI Dcujlvitev72.2 kg/m2 BSA Calculated2.11 Tobacco Usea) Yes Patient [...] Fall risk assessment c) Not medically indicated -[facility] DO Work Phone: Tobacco use status [facility] a) Yes -[facility] 250 DO Work Phone: Tobacco Screening. Yes [facility] 250 DO Work Phone: Office Visit [...] we can help. You may also call 1-353-JGMP-NOW for free resources and assistance.; Status:Complete - [...] to retrieve her recent Holter monitor from [place] 3. I suggested a trial of a [...] and dry, (more content not included)... Normal [facility] PHQ-2 VITALSon 08-11-2022 Adult depression screening assessment No -[facility] 250 DO Work Phone: Tobacco Screening.on 023 Tobacco use status [facility] a) Yes [facility] 250 DO Work Phone: Tobacco Screening. Yes [facility] 250 DO Work Phone: ECHOCARDIO M/2D COMPLETEon 0 06-27-2022 ECHOCARDIO M/2D COMPLETE Patient: HENRRY MELÉNDEZ Exam Date: 06/27/2022 : 1970 Gender:F Ordering : DR CARRIE TALBOT M.D. Admission #: [id number] Family : Order #: [id number] CLICK HERE TO VIEW EXAM ECHOCARDIOGRAM REPORT [...] M.D. on 06/28/2022 at 19:30 Normal [facility] [place] [facility] BNPon 06-10-2022 Natriuretic peptide B (Bld) [Mass/Vol] 384.0 pg/mL Normal <=900.0 [facility] Comment on above: Performed By: #### B STRAW HAT WASHER OPERATOR, BMP, HSTROPN ####[facility] [address] [place], [place] [address]Dr. Alis Saha CBC AUTO DIFFon 06-10-2022 BASO # 0.0 103/ul Normal 0.0-0.1 [facility] Comment on above: Performed By: #### C BC ####[facility] [address] [place], [place] [address]Dr. Alis Saha Basophils/100 WBC (Bld) 0.5 % Normal 0.2-2.0 [facility] Comment on above: Performed By: #### C BC ####[facility] [address] [place], [place] [address]Dr. Alis Saha EO # 0.1 103/ul Normal 0.0-0.7 [facility] Comment on above: Performed By: #### C BC ####[facility] [address] [place], [place] [address]Dr. Alis Saha Eosinophils/100 WBC (Bld) 1.6 % Normal 0.9-7.0 [facility] Comment on above: Performed By: #### C BC ####[facility] [address] [place], [place] [address]Dr. Alis Saha Erythrocyte distribution width (RBC) [Ratio] 15.9 % Critically high 11.0-15.0 [facility] Comment on above: Performed By: #### C BC ####[facility] [address] [place] [address]Dr. Kavitatrace Saha Hematocrit (Bld) [Volume fraction] 37.1 % Normal 36.0-48.0 [facility] Comment on above: Performed By: #### C BC ####[facility] [address] [place] [address]Dr. Alis Saha Hemoglobin (Bld) [Mass/Vol] 12.2 g/dL Normal 12.0-16.0 [facility] Comment on above: Performed By: #### C BC ####[facility] [address] [place], [place] [address]Dr. Alis Saha IG # 0.02 10e3/ul Normal 0.00-0.03 [facility] Comment on above: Performed By: #### C BC ####[facility] [address] [place], [place] [address]Dr. Alis Saha IG % 0.2 % Normal 0.0-0.5 [facility] Comment on above: Performed By: #### C BC ####[facility] Al[address] [place], [place] [address]Dr. Alis Saha LYMPH # 3.2 103/ul Normal 1.2-3.8 [facility] Comment on above: Performed By: #### C BC ####[facility] [address] [place], [place] [address]Dr. Alis Saha Lymphocytes/100 WBC (Bld) 37.3 % Normal 20.5-60.0 [facility] Comment on above: Performed By: #### C BC ####[facility] [address] [place] [address]Dr. Alis Saha MANUAL DIFF REQ NO Normal [facility] Comment on above: Performed By: #### C BC ####[facility] [address] [place], [place] [address]DrMiranda Saha MCH (RBC) [Entitic mass] 29.8 pg Normal 26.7-34.0 [facility] Comment on above: Performed By: #### C BC ####[facility] [address] [place], [place] [address]Dr. Alis aSha MCHC (RBC) [Mass/Vol] 32.9 g/dL Normal 29.9-35.2 [facility] Comment on above: Performed By: #### C BC ####[facility] [address] [place] [id number]. Kavitatrace Saha MCV (RBC) [Entitic vol] 90.5 fL Normal 81.0-99.0 [facility] Comment on above: Performed By: #### C BC ####[facility] [address] [place] [address]Dr. Alis Saha MONO # 0.4 103/ul Normal 0.3-0.8 [facility] Comment on above: Performed By: #### C BC ####[facility] [address] [place], [place] [address]Dr. Alis Saha Monocytes/100 WBC (Bld) 4.6 % Normal 1.7-12.0 [facility] Comment on above: Performed By: #### C BC ####[facility] [address] [place], [place] [address]Dr. Alis Saha NEUT # 4.8 103/ul Normal 1.4-6.5 [facility] Comment on above: Performed By: #### C BC ####[facility] [address] [place], [place] [address]Dr. Alis Saha Neutrophils/100 WBC (Bld) 55.8 % Normal 43.0-75.0 [facility] Comment on above: Performed By: #### C BC ####[facility] [address] [place], [place] [address]Dr. Alis Saha Platelet mean volume (Bld) [Entitic vol] 9.9 fL Normal 9.5-13.5 [facility] Comment on above: Performed By: #### C BC ####[facility] [address] [place], [place] [address]Dr. Alis Saha PLT 265 103/ul Normal 150-450 [facility] Comment on above: Performed By: #### C BC ####[facility] [address] [place] [id number] Saha RBC 4.10 106/ul Critically low 4.20-5.40 [facility] Comment on above: Performed By: #### C BC ####[facility] [address] [place], [place] [address]SqMiranda Saha WBC 8.7 103/ul Normal 4.0-11.0 [facility] Comment on above: Performed By: #### C BC ####[facility] [address] [place] [id number] Saha Covid-19 PCR (CVDTBH)on 05-23 SARS-CoV-2 (COVID-19) RNA AMANDA+probe Ql (Unsp spec) Not detected Normal NOT DETECTED [facility] Comment on above: Result Comment: When [...] for this test is supported by the [place] of [employer] Service's declaration that [...] used). Performed By: #### C VDTBH #### [facility] [address] [place], [place] [address] Dr. Alis Saha PROF CHEM 8 (BAS METB)on Anion gap [Moles/Vol] 11.7 mmol/L Normal [facility] Comment on above: Performed By: #### B STRAW HAT WASHER OPERATOR, BMP, HSTROPN ####[facility] [address] [place] [id number] Saha Calcium [Mass/Vol] 8.8 mg/dL Normal 8.5-10.1 [facility] Comment on above: Performed By: #### B STRAW HAT WASHER OPERATOR, BMP, HSTROPN ####[facility] [address] [place] [address]Dr. Alis Saha Chloride [Moles/Vol] 108 mmol/L Critically high 98-107 [facility] Comment on above: Performed By: #### B STRAW HAT WASHER OPERATOR, BMP, HSTROPN ####[facility] [address] [place] [address]Dr. Alis Saha CO2 [Moles/Vol] 23.7 mmol/L Normal 21.0-32.[address] [facility] Comment on above: Performed By: #### B STRAW HAT WASHER OPERATOR, BMP, HSTROPN ####[facility] [address] [place] [address]Dr. Alis Saha Creatinine [Mass/Vol] 0.70 mg/dL Normal 0.55-1.02 [facility] Comment on above: Performed By: #### B STRAW HAT WASHER OPERATOR, BMP, HSTROPN ####[facility] [address] [place] [address]Dr. Alis Saha EGFR-AF COMORAN >60 Normal >=[address] [facility] Comment on above: Performed By: #### B STRAW HAT WASHER OPERATOR, BMP, HSTROPN ####[facility] [address] [place] [address]Dr. Alis Saha EGFR-NON AF COMORAN >60 Normal >=60 [facility] Comment on above: Performed By: #### B STRAW HAT WASHER OPERATOR, BMP, HSTROPN ####[facility] [address] [place] [address]Dr. Alis Saha Glucose [Mass/Vol] 119 mg/dL Critically high 74-[address] [facility] Comment on above: Performed By: #### B STRAW HAT WASHER OPERATOR, BMP, HSTROPN ####[facility] [address] [place] [address]Dr. Alis Shaa Potassium [Moles/Vol] 3.4 mmol/L Critically low 3.5-5.1 [facility] Comment on above: Performed By: #### B STRAW HAT WASHER OPERATOR, BMP, HSTROPN ####[facility] [address] [place] [id number]. Alis Saha Sodium [Moles/Vol] 140 mmol/L Normal 136-145 [facility] Comment on above: Performed By: #### B STRAW HAT WASHER OPERATOR, BMP, HSTROPN ####[facility] [address] [place] [id number]. Alis Saha Urea nitrogen [Mass/Vol] 14.0 mg/dL Normal 7.0-18.0 [facility] Comment on above: Performed By: #### B STRAW HAT WASHER OPERATOR, BMP, HSTROPN ####[facility] [address] [place] [address]Dr. Alis Saha Urea nitrogen/Creatinine [Mass ratio] 20.0 mg/mg Normal [facility] Comment on above: Performed By: #### B STRAW HAT WASHER OPERATOR, BMP, HSTROPN ####[facility] [address] [place] [address]Dr. Alis Saha TROPONIN, HIGH SENSITIVITYon 06-10-2022 HSTROP 9.9 pg/mL Normal 4.0-51.3 [facility] Comment on above: Result Comment: CUT- OFF POINTS HAVE BEEN ESTABLISHED BASED ON THE FOURTH UNIVERSAL DEFINITIONS OF MYOCARDIAL INFARCTION. THE UPPER REFERENCE LIMIT (URL) OF TROPONIN, DEFINED THE 99TH PERCENTILE OF cTnI DISTRIBUTION IN A REFERENCE POPULATION, HAS BEEN CONFIRMED THE DECISION THRESHOLD FOR [place] DIAGNOSIS. Performed By: #### B STRAW HAT WASHER OPERATOR, BMP, HSTROPN ####[facility] [address] [place] [address]Dr. Alis Saha XR CHEST 1 Von 06-10-2022 [...] POPPY GREEN Date: 2022-06-09 23:02 Normal [facility] XR LSPINE MIN 4 VIEWSon 01-20 XR [...] CARLOS VILLATORO Date: 2022-02-02 07:17 Normal [facility] XR CSPINE 2_3 VIEWSon 2021 XR [...] CARLOS VILLATORO Date: 2021-10-01 07:13 Normal [facility] CBC AUTO DIFFon 09-30-2021 BASO # 0.0 103/ul Normal 0.0-0.1 [facility] Comment on above: Performed By: #### C BC ####[facility] [address] [place], [place] [address]RcMiranda Saha Basophils/100 WBC (Bld) 0.4 % Normal 0.2-2.0 [facility] Comment on above: Performed By: #### C BC ####[facility] [address] [place], [place] [address]Be. Alis Saha EO # 0.1 103/ul Normal 0.0-0.7 [facility] Comment on above: Performed By: #### C BC ####[facility] [address] [place] [address]Dr. Alis Saha Eosinophils/100 WBC (Bld) 1.6 % Normal 0.9-7.0 [facility] Comment on above: Performed By: #### C BC ####[facility] [address] [place] [address]Dr. Alis Saha Erythrocyte distribution width (RBC) [Ratio] 15.1 % Critically high 11.0-15.0 [facility] Comment on above: Performed By: #### C BC ####[facility] [address] [place], [place] [address]Dr. Alis Saha Hematocrit (Bld) [Volume fraction] 41.9 % Normal 36.0-48.0 [facility] Comment on above: Performed By: #### C BC ####[facility] [address] [place], [place] [address]Dr. Alis Saha Hemoglobin (Bld) [Mass/Vol] 13.5 g/dL Normal 12.0-16.0 [facility] Comment on above: Performed By: #### C BC ####[facility] [address] [place], [place] [address]Dr. Alis Saha IG # 0.01 10e3/ul Normal 0.00-0.03 [facility] Comment on above: Performed By: #### C BC ####[facility] [address] [place], [place] [address]Dr. Alis Saha IG % 0.1 % Normal 0.0-0.5 [facility] Comment on above: Performed By: #### C BC ####[facility] [address] [place], [place] [address]Dr. Alis Saha LYMPH # 2.3 103/ul Normal 1.2-3.8 [facility] Comment on above: Performed By: #### C BC ####[facility] [address] [place], [place] [address]Dr. Alis Saha Lymphocytes/100 WBC (Bld) 27.9 % Normal 20.5-60.0 [facility] Comment on above: Performed By: #### C BC ####[facility] [address] [place] [id number]. Alis Saha MANUAL DIFF REQ NO Normal [facility] Comment on above: Performed By: #### C BC ####[facility] [address] [place] [id number]. Alis Saha MCH (RBC) [Entitic mass] 28.8 pg Normal 26.7-34.0 [facility] Comment on above: Performed By: #### C BC ####[facility] [address] [place] [id number]. Alis Saha MCHC (RBC) [Mass/Vol] 32.2 g/dL Normal 29.9-35.2 [facility] Comment on above: Performed By: #### C BC ####[facility] [address] [place], [place] [address]Dr. Alis Saha MCV (RBC) [Entitic vol] 89.3 fL Normal 81.0-99.0 [facility] Comment on above: Performed By: #### C BC ####[facility] [address] [place], [place] [address]Dr. Alis Saha MONO # 0.5 103/ul Normal 0.3-0.8 [facility] Comment on above: Performed By: #### C BC ####[facility] [address] [place], [place] [address]Dr. Alis Saha Monocytes/100 WBC (Bld) 5.6 % Normal 1.7-12.0 [facility] Comment on above: Performed By: #### C BC ####[facility] [address] [place], [place] [id number]. Alis Saha NEUT # 5.3 103/ul Normal 1.4-6.5 [facility] Comment on above: Performed By: #### C BC ####[facility] [address] [place], [place] [id number]. Alis Saha Neutrophils/100 WBC (Bld) 64.4 % Normal 43.0-75.0 [facility] Comment on above: Performed By: #### C BC ####[facility] [address] [place] [phone]. Alis Saha Platelet mean volume (Bld) [Entitic vol] 9.5 fL Normal 9.5-13.5 [facility] Comment on above: Performed By: #### C BC ####[facility] [address]fzx[address]ndt[address] [place] [address]Dr. Alis Saha PLT 316 103/ul Normal 150-450 [facility] Comment on above: Performed By: #### C BC ####[facility] [address] [place] [address]Dr. Alis Saha RBC 4.69 106/ul Normal 4.20-5.40 [facility] Comment on above: Performed By: #### C BC ####[facility] [address]qux[address] [place] [address]Dr. Kavitatrace Saha WBC 8.2 103/ul Normal 4.0-11.0 [facility] Comment on above: Performed By: #### C BC ####[facility] [address]spzu[address]xc[address] [place] [address]Dr. Alis Yifan GLYCOHEMOGLOBIN A1Con 2021 ADA RECOMMENDATION SEE BELOW Normal [facility] Comment on above: Result Comment: ADA RECOMMENDED LIMIT 4.0 - 6.0 ADA THERAPEUTIC TARGET < 7.0 ACTION SUGGESTED > 7.0 Performed By: #### A 1C ####[facility] [address] [place] [address]Dr. Alis Saha Glucose [Mass/Vol] 128 mg/dL Normal [facility] Comment on above: Performed By: #### A 1C ####[facility] [address] [place] [address]DrMiranda Alis Yifan HbA1c (Bld) [Mass fraction] 6.1 % Normal 4.5-6.2 [facility] Comment on above: Performed By: #### A 1C ####[facility] [address]qw35[address] [place] [address]DrMiranda Saha PROF CHEM 8 (BAS METB)on Anion gap [Moles/Vol] 11.5 mmol/L Normal [facility] Comment on above: Performed By: #### T SH, BMP #### [facility] [address] [place] [address] Dr. Alis Saha Calcium [Mass/Vol] 8.7 mg/dL Normal 8.5-10.1 [facility] Comment on above: Performed By: #### T SH, BMP #### [facility] [address] [place] [address] Dr. Alis Saha Chloride [Moles/Vol] 104 mmol/L Normal 98-107 [facility] Comment on above: Performed By: #### T SANA, BMP #### [facility] [address] [place] [address] Dr. Alis Saha CO2 [Moles/Vol] 25.5 mmol/L Normal 21.0-32.[address] [facility] Comment on above: Performed By: #### T SANA, BMP #### [facility] [address] [place] [address] Dr. Alis Saha Creatinine [Mass/Vol] 0.85 mg/dL Normal 0.55-1.02 [facility] Comment on above: Performed By: #### T SANA, BMP #### [facility] [address] [place] [address] Dr. Alis Saha EGFR-AF COMORAN >60 Normal >=[address] [facility] Comment on above: Performed By: #### T SANA, BMP #### [facility] [address] [place] [address] Dr. Alis Saha EGFR-NON AF COMORAN >60 Normal >=60 [facility] Comment on above: Performed By: #### T SANA, BMP #### [facility] [address] [place] [address] Dr. Alis Saha Glucose [Mass/Vol] 101 mg/dL Normal 74-106 [facility] Comment on above: Performed By: #### T SANA, BMP #### [facility] [address] [place] [address] Dr. Alis Saha Potassium [Moles/Vol] 4.0 mmol/L Normal 3.5-5.1 [facility] Comment on above: Performed By: #### T SH, BMP #### [facility] [address] [place] [address] Dr. Alis Saha Sodium [Moles/Vol] 137 mmol/L Normal 136-145 [facility] Comment on above: Performed By: #### T SH, BMP #### [facility] [address] [place] [address] Dr. Alis Saha Urea nitrogen [Mass/Vol] 13.0 mg/dL Normal 7.0-18.0 [facility] Comment on above: Performed By: #### T SH, BMP #### [facility] [address] [place] [address] Dr. Alis Saha Urea nitrogen/Creatinine [Mass ratio] 15.3 mg/mg Normal [facility] Comment on above: Performed By: #### T SH, BMP #### [facility] [address] [place] [address] Dr. Alis Saha TSHon 09-30-2021 TSH 1.548 uIU/mL Normal 0.358-3.740 [facility] Comment on above: Performed By: #### T SH, BMP #### [facility] [address] [place] [address] Dr. Alis Saha TSH RANGE SEE BELOW Normal [facility] Comment on above: Result Comment: <0.3 4 UIU/ml HYPERTHYROID 0.34-5.60 UIU/ml EUTHYROID >5.60 UIU/ml HYPOTHYROID Performed By: #### T SH, BMP #### [facility] [address] [place] [address] Dr. Alis Saha VC CONSULT FOLLOWUPon 2021 VC CONSULT FOLLOWUP Patient: HENRRY MELÉNDEZ Exam Date: 07/19/2021 : 1970 Gender:F Ordering : DR JUAN CARLOS VILLATORO M.D. Admission #: [id number] Family : Order #: [id number] CLICK HERE TO VIEW EXAM RADIOLOGY REPORT [...] Villatoro MD on 07/19/2021 at 15:16 Normal [facility] VC EXT VENOUS RT LIMITEDon 0 07-19-2021 VC EXT VENOUS RT LIMITED Patient: HENRRY MELÉNDEZ Exam Date: 07/19/2021 : 1970 Gender:F Ordering : DR JUAN CARLOS VILLATORO M.D. Admission #: [id number] Family : Order #: [id number] CLICK HERE TO VIEW EXAM RADIOLOGY REPORT [...] to distal calf. Heat induced thrombus in regulatory affairs director distal calf 1.4 mm from PTV and [...] vein with occlusion of 2 associated incompetent regulatory affairs director veins No deep vein thrombus Dictated by: Juan Carlos Villatoro MD on 07/19/2021 at 14:36 Approved by: Juan Carlos Villatoro MD on 07/19/2021 at 14:37 Normal [facility] VC ENDOVENOUS ABL 1ST V RTon 07-14-2021 VC ENDOVENOUS ABL 1ST V RT Patient: HENRRY MELÉNDEZ Exam Date: 07/14/2021 : 1970 Gender:F Ordering : DR JUAN CARLOS VILLATORO M.D. Admission #: [id number] Family : Order #: [id number] CLICK HERE TO VIEW EXAM RADIOLOGY REPORT [...] the right great saphenous vein. Dictated by: Valdimir Palacios M.D. on 07/14/2021 at 14:47 Approved by: Vladimir Palacios M.D. on 07/14/2021 at 14:50 Normal [facility] Vital Signs Date Time Vital Sign Value Performing Clinician Facility 02-14-2024 15:42-0400 Blood Pressure Location Mikhail VENEGAS [facility] 02-14-2024 15:42-0400 Diastolic blood pressure 78 mm[Hg] Mikhail VENEGAS [facility] 02-14-2024 15:42-0400 Heart rate 76 /min Mikhail VENEGAS [facility] 02-14-2024 15:42-0400 Respiratory rate 16 /min Mikhail JEFFERSONNeto [facility] 02-14-2024 15:42-0400 Systolic blood pressure 118 mm[Hg] Mikhail JEFFERSONNeto [facility] 01-18-2024 11:13-0400 Body height 163.83 cm [facility] 01-18-2024 11:13-0400 Body mass index (BMI) [Ratio] 42 kg/m2 [facility] 01-18-2024 11:130400 Body weight 112.94 kg [facility] 01-18-2024 11:13-0400 Diastolic blood pressure 80 mm[Hg] [facility] 01-18-2024 11:13-0400 Heart rate 65 /min [facility] 01-18-2024 11:13-0400 Systolic blood pressure 146 mm[Hg] [facility] 11-03-2023 10:24-0400 Diastolic blood pressure 87 mm[Hg] Bonny Meyer MD Work Phone: [facility] 11-03-2023 10:24-0400 Systolic blood pressure 132 mm[Hg] Bonny Meyer MD Work Phone: [facility] 11-03-2023 10:04-0400 Body height 162.6 cm Bonny Meyer MD Work Phone: [facility] 11-03-2023 10:04-0400 Body mass index (BMI) [Ratio] 43.43 kg/m2 Bonny Meyer MD Work Phone: [facility] 11-03-2023 10:04-0400 Body weight 114.76 kg Bonny Meyer MD Work Phone: [facility] 11-03-2023 10:04-0400 Heart rate 68 /min Bonny Meyer MD Work Phone: [facility] 10-03-2023 09:53-0400 Diastolic blood pressure 106 mm[Hg] Zulema Orzech [facility] 10-03-2023 09:53-0400 Heart rate 73 /min Zulema Orzech [facility] 10-03-2023 09:53-0400 Respiratory rate 19 /min Zulema Orzech [facility] 10-03-2023 09:53-0400 Systolic blood pressure 146 mm[Hg] Zulema Orzech [facility] 08-09-2023 11:52-0400 Body height 163.83 cm [facility] 08-09-2023 11:52-0400 Body mass index (BMI) [Ratio] 41.8 kg/m2 [facility] 08-09-2023 11:52-0400 Body temperature 96.8 [degF] [facility] 08-09-2023 11:52-0400 Body weight 112.09 kg [facility] 08-09-2023 11:52-0400 Diastolic blood pressure 81 mm[Hg] [facility] 08-09-2023 11:52-0400 Heart rate 80 /min [facility] 08-09-2023 11:52-0400 Systolic blood pressure 114 mm[Hg] [facility] 05-31-2023 10:15-0500 Body height 163.83 cm Carrie Talbot Other [facility] 05-31-2023 10:15-0500 Body mass index (BMI) [Ratio] 42.89 kg/m2 Carrie Talbot Other [employer] Other 05-31-2023 10:15-0500 Body weight 115.12 kg Carrie Talbot Other [facility] 05-31-2023 10:15-0500 Diastolic blood pressure 83 mm[Hg] Carrie Talbot Other [facility] 05-31-2023 10:15-0500 Systolic blood pressure 124 mm[Hg] Carrie Talbot Other [facility] 04-20-2023 11:15-0500 Body height 163.83 cm Carrie Talbot Other [facility] [employer] Other 04-20-2023 11:15-0500 Body mass index (BMI) [Ratio] 42.58 kg/m2 Carrie Talbot Other [employer] Other 04-20-2023 11:15-0500 Body weight 114.31 kg Carrie Talbot Other [employer] Other 04-20-2023 11:15-0500 Diastolic blood pressure 88 mm[Hg] Carrie Talbot Other [employer] Other 04-20-2023 11:15-0500 Systolic blood pressure 138 mm[Hg] Carrie Talbot Other [employer] Other 02-21-2023 11:15-0400 Body height 163.83 cm Carrie Talbot Other [employer] Other 02-21-2023 11:15-0400 Body mass index (BMI) [Ratio] 41.91 kg/m2 Carrie Talbot Other [employer] Other 02-21-2023 11:15-0400 Body weight 112.49 kg Carrie Talbot Other [employer] Other 02-21-2023 11:15-0400 Diastolic blood pressure 86 mm[Hg] Carrie Talbot Other [employer] Other 02-21-2023 11:15-0400 Systolic blood pressure 130 mm[Hg] Carrie Talbot Other [facility] [employer] Other 12-02-2022 09:55-0400 Body height 162.56 cm Carrie Talbot Work Phone: [facility] 250 DO Work Phone: 12-02-2022 09:55-0400 Body mass index (BMI) [Ratio] 41.2 kg/m2 Carrie Talbot Work Phone: [facility] 250 DO Work Phone: 12-02-2022 09:55-0400 Body surface area Derived from formula 2.11 m2 Carrie Talbot Work Phone: [facility] 250 DO Work Phone: 12-02-2022 09:55-0400 Body weight 108.86 kg Carrie Talbot Work Phone: [facility] 250 DO Work Phone: 12-02-2022 09:55-0400 Diastolic blood pressure 62 mm[Hg] Carrie Talbot Work Phone: [facility] 250 DO Work Phone: 12-02-2022 09:55-0400 Heart rate 60 /min Carrie Talbot Work Phone: [facility] 250 DO Work Phone: 12-02-2022 09:55-0400 Systolic blood pressure 118 mm[Hg] Carrie Talbot Work Phone: [facility] 250 DO Work Phone: 08-11-2022 13:37-0400 Diastolic blood pressure 86 mm[Hg] Carrie Talbot Work Phone: [facility] 250 DO Work Phone: 08-11-2022 13:37-0400 Systolic blood pressure 137 mm[Hg] Carrie Talbot Work Phone: [facility] 250 DO Work Phone: 08-11-2022 13:26-0400 Heart rate 62 /min Carrie Talbot Work Phone: [facility] DO Work Phone: 08-11-2022 13:24-0400 Diastolic blood pressure 88 mm[Hg] Carrie Talbot Work Phone: [facility] 250 DO Work Phone: 08-11-2022 13:24-0400 Systolic blood pressure 132 mm[Hg] Carrie Talbot Work Phone: [facility] 250 DO Work Phone: 08-11-2022 13:23-0400 Body height 162.56 cm Carrie Talbot Work Phone: [facility] DO Work Phone: 08-11-2022 13:23-0400 Body mass index (BMI) [Ratio] 40.85 kg/m2 Carrie Talbot Work Phone: [facility] 250 DO Work Phone: 08-11-2022 13:23-0400 Body surface area Derived from formula 2.11 m2 Carrie Talbot Work Phone: [facility] 250 DO Work Phone: 08-11-2022 13:23-0400 Body weight 107.96 kg Carrie Talbot Work Phone: [facility] DO Work Phone: 08-11-2022 13:23-0400 Diastolic blood pressure 90 mm[Hg] Carrie Talbot Work Phone: [facility] 250 DO Work Phone: 08-11-2022 13:23-0400 Systolic blood pressure 140 mm[Hg] Carrie Johnson Ronaldo Work Phone: [facility] 250 DO Work Phone: Encounters Encounter Date Encounter Type Care Provider Facility Start: 02-14-2024 ambulatory Mikhail Rodney RUBI Facility : [place] Start: 02-14-2024 End: 02-14-2024 [facility] Start: 02-05-2024 End: 02-05-2024 ambulatory KATE DOREEN Not Available Start: 01-30-2024 End: 01-30-2024 ambulatory Zulema X Orzech Facility:[facility] Start: 01-30-2024 End: 01-30-2024 Patient encounter procedure Zulema X Orzech [facility] [place] Start: 01-19-2024 ambulatory Zulema Orzech Facility: [place] Start: 01-18-2024 End: 01-18-2024 ambulatory [facility] Work Phone: Start: 01-18-2024 End: 01-18-2024 Patient encounter procedure [facility] Work Phone: Start: 01-09-2024 End: 01-09-2024 ambulatory Zulema X Orzech Facility:[facility] [place] Start: 01-09-2024 End: 01-09-2024 Patient encounter procedure Zulema X Orzech [facility] Start: 01-08-2024 End: 01-08-2024 ambulatory KATE DOREEN Not Available Start: 12-06-2023 End: 12-06-2023 ambulatory KATE DOREEN Not Available Start: 11-07-2023 End: 11-07-2023 ambulatory Gemma Blanco Facility:[facility] Start: 11-07-2023 End: 11-07-2023 Patient encounter procedure Gemma Blanco [facility] Start: 11-03-2023 End: 11-03-2023 ambulatory [facility] Start: 11-03-2023 End: 11-03-2023 Office outpatient visit 25 minutes Bonny Meyer MD Work Phone: [facility] Comment on above: Palpitations (Primar y Dx); Essential hypertension; Shortness of breath; BMI 40.0-44.9, adult (Multi); Current smoker Start: 10-03-2023 End: 10-03-2023 ambulatory Zulema X Orabhinavch Facility:[facility] Start: 10-03-2023 End: 10-03-2023 Patient encounter procedure Zulema X Orabhinavch [facility] Start: 08-10-2023 ambulatory Zulema Orpearl Facility: [facility] Start: 08-09-2023 End: 08-09-2023 Departed Referred MD Carrie Talbot Work Phone: [facility] Work Phone: Start: 08-09-2023 End: 08-09-2023 ambulatory Carrie Talbot [facility] Work Phone: Start: 08-09-2023 End: 08-09-2023 Patient encounter procedure [facility] Physician [facility] Work Phone: Start: 08-03-2023 End: 08-03-2023 ambulatory [facility] Work Phone: Start: 08-03-2023 End: 08-03-2023 Patient encounter procedure [facility] Physician [facility] Work Phone: Start: 05-31-2023 End: 05-31-2023 ambulatory Carrie Talbot Other [employer] Other Start: 05-31-2023 Office outpatient vi sit 15 minutes Carrie Talbot [facility] Start: 05-31-2023 End: 05-31-2023 Patient encounter procedure [facility] Work Phone: Start: 05-25-2023 End: 05-25-2023 ambulatory ZOLTAN HENDERSON Not Available Start: 04-24-2023 End: 04-24-2023 ambulatory Carrie Talbot Other [employer] Other Start: 04-24-2023 Telephone encounter Carrie Talbot [facility] Start: 04-20-2023 End: 04-20-2023 ambulatory Carrie Talbot Other [employer] Other Start: 04-20-2023 Office outpatient vi sit 15 minutes Carrie Talbot [facility] Start: 03-28-2023 (Televisit) Televisit Carrie Gong [facility] Start: 03-28-2023 End: 03-28-2023 ambulatory Carrie Talbot Other [employer] Other Start: 02-21-2023 End: 02-21-2023 ambulatory Carrie Talbot Other [employer] Other Start: 02-21-2023 Office outpatient vi sit 25 minutes Carrie Talbot [facility] Start: 12-02-2022 ambulatory MD CARRIE TALBOT Facility: Start: 12-02-2022 Office outpatient vi sit 15 minutes Carrie Talbot Work Phone: [facility] DO Work Phone: Start: 08-18-2022 End: 08-18-2022 ambulatory Carrie Talbot Other [employer] Other Start: 08-18-2022 Telephone encounter Carrie Talbot [facility] Start: 08-11-[address] Bonny Meyer Facility: Start: 08-11-2022 Office consultation new/estab patient 60 min Carrie Talbot Work Phone: [facility] 250 DO Work Phone: Start: 08-05-2022 End: 08-05-2022 ambulatory Carrie Talbot Other [employer] Other Start: 08-05-2022 Nursing evaluation o f patient and report Carrie Talbot [facility] Start: 07-04-2022 End: 07-04-2022 ambulatory Carrie Talbot Other [employer] Other Start: 07-04-2022 Telephone encounter Carrie Talbot [facility] Start: 06-27-2022 End: 06-28-[address] CARRIE TALBOT Facility:[facility] Start: 06-22-2022 End: 06-22-2022 ambulatory Carrie Talbot Other [employer] Other Start: 06-22-2022 Telephone encounter Carrie Talbot [facility] Start: 06-14-2022 End: 06-14-2022 ambulatory Carrie Talbot Other [employer] Other Start: 06-14-2022 Telephone encounter Carrie Talbot [facility] Start: 06-12-2022 End: 06-12-2022 ambulatory ELY SANTOS Facility:[facility] Start: 06-09-2022 End: 06-10-[address] JUANPABLO PASTRANA Facility:[facility] Start: 05-22-2022 End: 05-28-[address] CARRIE TALBOT Facility:[facility] Start: 05-10-2022 End: 05-21-[address] CARRIE TALBOT Facility:[facility] Start: 05-05-2022 End: 05-06-[address] VLADIMIR PALACIOS Facility:[facility] Start: 02-18-2022 End: 02-19-[address] CARRIE TALBOT Facility:[facility] Start: 02-01-2022 End: 02-02-[address] JUAN CARLOS VILLATORO Facility:[facility] Start: 10-11-2021 End: 11-27-[address] CARRIE TALBOT Facility:[facility] Start: 09-30-2021 End: 10-01-[address] JUAN CARLOS VILLATORO Facility:[facility] Start: 08-28-2021 End: 08-28-2021 ambulatory MG HORTENCIA Facility:[facility] Start: 07-26-[address] CARRIE TALBOT Facil ity:[facility] Start: 07-19-2021 End: 07-20-[address] JUAN CARLOS VILLATORO Facility:[facility] Start: 07-14-2021 End: 07-15-[address] JUAN CARLOS VILLATORO Facility:[facility] Procedures Date Procedure Procedure Detail Performing Clinician Start: 11-07-2023 Cystoscopy Zulema Orz ech Cholecystectomy Carrie Hardy un Work Phone: Cholecystectomy Zulema Orzec h Colonoscopy Mikhail NILL Hysteroscopy Zulema Orzech Ligation of varicose vein Otis Talbot Work Phone: Stripping of vein Zulema Orz ech Total colonoscopy Carrie mancuso Work Phone: Comment on above: over 10 years ago; Plan of Treatment Date Care Activity Detail Author Start: 10-28-2024 End: 10-28-2024 Patient encounter procedure 10/28/2024 10:10 AM EDT Office Visit [facility] [address] [facility] [address] [place] [address] Bonny Meyer MD [facility] [place] [address] [facility] Start: 01-21-2024 Influenza vaccination Influenza Vaccine (Season Ended) [facility] Start: 01-18-2024 Patient referral [facility] Work Phone: Start: 08-09-2023 Bacteria identified in Urine by Culture [facility] Start: 08-09-2023 Patient referral [facility] Work Phone: Start: 01-20-2023 COVID-19 Vaccine ( season) COVID-19 Vaccine ( season) [facility] Start: 12-02-2022 FUV, Provider: Bonny Meyer, Status: Pen, Time: 9:40 AM FUV, Provider: Bonny Meyer, Status: Pen, Time: 9:40 AM -[facility] 250 DO Work Phone: Start: 2022 Zoster Vaccines (1 of 2) Zoster Vaccines (1 of 2) [facility] Start: 2012 Screening for malignant neoplasm of breast Mammogram [facility] Start: 1994 DTaP/Tdap/Td Vaccines (1 - Tdap) DTaP/Tdap/Td Vaccines (1 - Tdap) [facility] Start: 1993 Screening for malignant neoplasm of cervix [facility] Start: 1991 Hepatitis B Vaccines (1 of 3 - 19+ 3-dose series) Hepatitis B Vaccines (1 of 3 - 19+ 3-dose series) [facility] Start: 1990 Diabetes mellitus screening Diabetes Screening [facility] Start: 1990 Hepatitis C screening Hepatitis C Screening [facility] Start: 1978 Pneumococcal Vaccine: Pediatrics (0 to 5 Years) and At-Risk Patients (6 to 64 Years) (1 of 2 - PCV) Pneumococcal Vaccine: Pediatrics (0 to 5 Years) and At-Risk Patients (6 to 64 Years) (1 of 2 - PCV) [facility] Start: 1973 MMR Vaccines (1 of 1 - Standard series) MMR Vaccines (1 of 1 - Standard series) [facility] Start: 1972 HIV screening HIV Screening [facility] Start: 1972 Lipid panel Lipid Panel [facility] Start: 1972 Screening for malignant neoplasm of colon [facility] Start: 1972 Yearly Adult Physical Yearly Adult Physical [facility] Patient referral [facility] Work Phone: Payers Date Payer Category Payer Unknown 2021 Unknown [id number] 1972 Unknown [id number] 2.16.84 0.1.134876.3.579.2.593 1972 Unknown [id number] 2.16.84 0.1.697210.3.579.2.593 1972 Unknown [id number] 2.16.84 0.1.906170.3.579.2.593 1972 Unknown [id number] 2.16.84 0.1.014521.3.579.2.593 1972 Unknown [id number] 2.16.84 0.1.216031.3.579.2.593 1972 Unknown [id number] 2.16.84 0.1.918780.3.579.2.593 1972 Unknown [id number] 2.16.84 0.1.110319.3.579.2.593 1972 Unknown [id number] 2.16.84 0.1.103108.3.579.2.593 1972 Unknown [id number] 2.16.84 0.1.719595.3.579.2.593 1972 Unknown [id number] 2.16.84 0.1.812405.3.579.2.593 1972 Unknown [id number] 2.16.84 0.1.421310.3.579.2.593 1972 Unknown [id number] 2.16.84 0.1.029760.3.579.2.593 1972 Unknown [id number] 2.16.84 0.1.928506.3.579.2.593 1972 Unknown [id number] 2.16.84 0.1.214488.3.579.2.593 1972 Unknown [id number] 2.16. 840.1.462945.3.579.2.356 1972 Unknown [id number] 2.16. 840.1.310599.3.579.2.356 1972 Unknown [id number] 2.16.8 40.1.012413.3.579.2.1244 1972 Unknown [id number] 2.16.8 40.1.481728.3.579.2.727 1972 Unknown [id number] 2.16.8 40.1.341145.3.579.2.727 1972 Unknown [id number] 2.16.8 40.1.083117.3.579.2.727 1972 Unknown [id number] 2.16.84 0.1.981581.3.579.2.1259 1972 Unknown [id number] 2.16.84 0.1.869258.3.579.2.1259 1972 Unknown [id number] 2.16.84 0.1.374754.3.579.2.1259 1972 Unknown [id number] 2.16.840 .1.405751.3.579.2.1259 1972 Unknown [id number] 2.16.840 .1.353460.3.579.2.1259 1972 Unknown [id number] 2.16.8 40.1.988827.3.579.2.727 1972 Unknown [id number] 2.16.8 40.1.878853.3.579.2.727 1959 Unknown [id number] Social History Date Type Detail Facility Unknown if ever smoked [facility] Other Start: 08-08-2023 Sex Assigned At F [facility] Start: 08-08-2023 Caffeine use Caffeine use -[facility] 250 DO Work Phone: Comment on above: pop all day; 5-10 cigarettes jessi y; Start: 1970 Sex Assigned At Female F [facility] Start: 10-03-2023 End: 01-30-2024 Tobacco smoking status Heavy tobacco smoker (finding) [facility] Start: 11-03-2023 Tobacco smoking stat [facility] Smokes tobacco daily [facility] Work Phone: History of tobacco use Cigarette Smoker [facility] Work Phone: Start: 11-03-2023 Tobacco use and exposure User of smokeless tobacco [facility] Work Phone: Start: 11-03-2023 Alcoholic beverage intake Lifetime non-drinker (finding) [facility] Work Phone: Start: 11-03-2023 Tobacco Comment vape [facility] Work Phone: Start: 1970 Sex assigned at Not on file [facility] Work Phone: Start: 10-24-2023 End: 11-03-2023 Exposure to SARS-CoV-2 (event) Not sure [facility] Start: 02-14-2024 Tobacco smoking status Light t obacco smoker (finding) [facility] Functional Status Date Assessment Result Facility 02-14-2024 Functional Status N/A [facility] 10-03-2023 Functional Status N/A [facility] Clinical Notes 09-30-2021 to 01-30-2024 Note Date & Type Note Facility 01-30-2024 Hospital Discharg e instructions Patient Education 01/30/2024 10:50:41 Adrenal Adenoma Adrenal Adenoma An adrenal adenoma is a benign tumor of the glands that are located on top of each kidney (adrenal glands). These glands produce hormones. A benign tumor means that the growth is not cancer. A person may have one or more tumors in one or both glands. In almost all cases, adrenal adenomas do not cause any symptoms. These are called nonfunctional adenomas. In rare cases, an adenoma may produce high levels of hormones called cortisol or aldosterone. These tumors are called functional adenomas. Adrenal adenomas become more common as people grow older, but are unlikely to become cancerous. However, nonfunctional adenomas may become functional. What are the causes? In most cases, the cause of this condition is not known. In very rare cases, the condition may be passed from parent to child (inherited). Smoking and tobacco use is associated with significant increases in adrenal adenomas. What are the signs or symptoms? Symptoms of this condition depend on the type of adrenal adenoma that you have. Nonfunctional adrenal adenomas usually do not cause any symptoms. Symptoms of functional adrenal adenomas depend on which hormone is produced in high levels. ?Tumors that secrete cortisol cause a condition called Burton's syndrome. Signs and symptoms include: ?Increased fat in the upper body. ?Tiredness and loss of energy. ?Muscle weakness. ?High blood pressure. ?High blood sugar. ?Bruising and purple stretch abebe in the skin, usually on the upper body. ?Facial hair, acne, and menstrual irregularities in women. ?Tumors that secrete aldosterone cause a condition called primary aldosteronism. Signs and symptoms include: ?High blood pressure that may be difficult to control. ?Tiredness and loss of energy. ?Headache. ?Weakness or numbness. ?Low potassium levels in your blood. How is this diagnosed? This condition may be diagnosed based on: Your symptoms. Your health care provider may suspect the condition if you have signs and symptoms of a functional adenoma. A physical exam. Blood and urine tests to check for high levels of hormones. Imaging studies to confirm the diagnosis. These may include: ?CT scan. ?MRI. ?PET scan. Biopsy. For this test, a sample of the tumor is removed and examined in a lab. This is done in rare cases where other tests have not given a clear result. Adrenal adenomas are often found by chance when imaging studies of the abdomen are done for other reasons. How is this treated? Treatment for this condition depends on the type of the adrenal adenoma that you have. You may treated with: Observation. This is done if you have a nonfunctional adrenal adenoma. For observation, you may need: ?Regular imaging studies to make sure the tumor is not growing. ?Blood or urine tests to make sure the tumor is not becoming functional. Surgery. This is done if you have a functional adenoma. Surgery is the main treatment for this condition and usually cures it. Medicines. These are used if surgery is not possible. The medicines block the effects of the hormones. Follow these instructions at home: Take mdxl-avc-mbwgzmc and prescription medicines only as told by your health care provider. Return to your normal activities as told by your health care provider. Ask your health care provider what activities are safe for you. Do not use any products that contain nicotine or tobacco. These products include cigarettes, chewing tobacco, and vaping devices, such as e-cigarettes. If you need help quitting, ask your health care provider. Keep all follow-up visits. This is important. This may include visits for regular tests and imaging studies. Contact a health care provider if: You develop any of the signs or symptoms of Burton's syndrome or primary aldosteronism. You need help to stop smoking or using other tobacco products. Summary An adrenal adenoma is a benign tumor of the adrenal gland. Nonfunctional adenomas rarely cause symptoms and do not need to be treated. Functional adenomas produce hormones and may cause symptoms of Toledo's syndrome or primary aldosteronism, depending on the type of hormone they produce. Adrenal adenomas do not become cancerous. Nonfunctional adenomas may become functional. Surgery to remove the tumor is the usual treatment for functional adenomas. This information is not intended to replace advice given to you by your health care provider. Make sure you discuss any questions you have with your health care provider. Document Revised: 01/05/2021 Document Reviewed: 01/05/2021 [employer] Patient Education 2023 [employer] 01/30/2024 10:50:38 Steps to Quit Smoking Steps to Quit Smoking Smoking tobacco is the leading cause of preventable . It can affect almost every organ in the body. Smoking puts you and those around you at risk for developing many serious chronic diseases. Quitting smoking can be very challenging. Do not get discouraged if you are not successful the first time. Some people need to make many attempts to quit before they achieve long-term success. Do your best to stick to your quit plan, and talk with your health care provider if you have any questions or concerns. How do I get ready to quit? When you decide to quit smoking, create a plan to help you succeed. Before you quit: Pick a date to quit. Set a date within the next 2 weeks to give you time to prepare. Write down the reasons why you are quitting. Keep this list in places where you will see it often. Tell your family, friends, and co-workers that you are quitting. Support from people you are close to can make quitting easier. Talk with your health care provider about your options for quitting smoking. Find out what treatment options are covered by your health insurance. Identify people, places, things, and activities that make you want to smoke (triggers). Avoid them. What first steps can I take to quit smoking? Throw away all cigarettes at home, at work, and in your car. Throw away smoking accessories, such as ashtrays and lighters. Clean your car. Make sure to empty the ashtray. Clean your home, including curtains and carpets. What strategies can I use to quit smoking? Talk with your health care provider about combining strategies, such as taking medicines while you are also receiving in-person counseling. Using these two strategies together makes you more likely to succeed in quitting than if you used either strategy on its own. If you are or , talk with your health care provider about finding counseling or other support strategies to quit smoking. Do not take medicine to help you quit smoking unless your health care provider tells you to. Quit right away Quit smoking completely, instead of gradually reducing how much you smoke over a period of time. Stopping smoking right away may be more successful than gradually quitting. Attend in-person counseling to help you build problem-solving skills. You are more likely to succeed in quitting if you attend counseling sessions regularly. Even short sessions of 10 minutes can be effective. Take medicine You may take medicines to help you quit smoking. Some medicines require a prescription. You can also purchase gxfq-tff-okqeuzd medicines. Medicines may have nicotine in them to replace the nicotine in cigarettes. Medicines may: Help to stop cravings. Help to relieve withdrawal symptoms. Your health care provider may recommend: Nicotine patches, gum, or lozenges. Nicotine inhalers or sprays. Non-nicotine medicine that you take by mouth. Find resources Find resources and support systems that can help you quit smoking and remain smoke-free after you quit. These resources are most helpful when you use them often. They include: Online chats with a counselor. Telephone quitlines. Printed self-help materials. Support groups or group counseling. Text messaging programs. Mobile phone apps or applications. Use apps that can help you stick to your quit plan by providing reminders, tips, and encouragement. Examples of free services include Quit Guide from the CDC and smokefree.gov What can I do to make it easier to quit? Reach out to your family and friends for support and encouragement. Call telephone quitlines, such as 1-737-JGSF-NOW, reach out to support groups, or work with a counselor for support. Ask people who smoke to avoid smoking around you. Avoid places that trigger you to smoke, such as bars, parties, or smoke-break areas at work. Spend time with people who do not smoke. Lessen the stress in your life. Stress can be a smoking trigger for some people. To lessen stress, try: ?Exercising regularly. ?Doing deep-breathing exercises. ?Doing yoga. ?Meditating. What benefits will I see if I quit smoking? Over time, you should start to see positive results, such as: Improved sense of smell and taste. Decreased coughing and sore throat. Slower heart rate. Lower blood pressure. Clearer and healthier skin. The ability to breathe more easily. Fewer sick days. Summary Quitting smoking can be very challenging. Do not get discouraged if you are not successful the first time. Some people need to make many attempts to quit before they achieve long-term success. When you decide to quit smoking, create a plan to help you succeed. Quit smoking right away, not slowly over a period of time. Find resources and support systems that can help you quit smoking and remain smoke-free after you quit. This information is not intended to replace advice given to you by your health care provider. Make sure you discuss any questions you have with your health care provider. Document Revised: 04/29/2022 Document Reviewed: 04/29/2022 [employer] Patient Education 2023 [employer] 01/30/2024 10:50:36 Overactive Bladder, Adult Overactive Bladder, Adult Overactive bladder is a condition in which a person has a sudden and frequent need to urinate. A person might also leak urine if he or she cannot get to the bathroom fast enough (urinary incontinence). Sometimes, symptoms can interfere with work or social activities. What are the causes? Overactive bladder is associated with poor nerve signals between your bladder and your brain. Your bladder may get the signal to empty before it is full. You may also have very sensitive muscles that make your bladder squeeze too soon. This condition may also be caused by other factors, such as: Medical conditions: ?Urinary tract infection. ?Infection of nearby tissues. ?Prostate enlargement. ?Bladder stones, inflammation, or tumors. ?Diabetes. ?Muscle or nerve weakness, especially from these conditions: ?A spinal cord injury. ?Stroke. ?Multiple sclerosis. ?Parkinson's disease. Other causes: ?Surgery on the uterus or urethra. ?Drinking too much caffeine or alcohol. ?Certain medicines, especially those that eliminate extra fluid in the body (diuretics). ?Constipation. What increases the risk? You may be at greater risk for overactive bladder if you: Are an older adult. Smoke. Are going through menopause. Have prostate problems. Have a neurological disease, such as stroke, dementia, Parkinson's disease, or multiple sclerosis (MS). Eat or drink alcohol, spicy food, caffeine, and other things that irritate the bladder. Are overweight or obese. What are the signs or symptoms? Symptoms of this condition include a sudden, strong urge to urinate. Other symptoms include: Leaking urine. Urinating 8 or more times a day. Waking up to urinate 2 or more times overnight. How is this diagnosed? This condition may be diagnosed based on: Your symptoms and medical history. A physical exam. Blood or urine tests to check for possible causes, such as infection. You may also need to see a health care provider who specializes in urinary tract problems. This is called a urologist. How is this treated? Treatment for overactive bladder depends on the cause of your condition and whether it is mild or severe. Treatment may include: Bladder training, such as: ?Learning to control the urge to urinate by following a schedule to urinate at regular intervals. ?Doing Kegel exercises to strengthen the pelvic floor muscles that support your bladder. Special devices, such as: ?Biofeedback. This uses sensors to help you become aware of your body's signals. ?Electrical stimulation. This uses electrodes placed inside the body (implanted) or outside the body. These electrodes send gentle pulses of electricity to strengthen the nerves or muscles that control the bladder. ?Women may use a plastic device, called a pessary, that fits into the vagina and supports the bladder. Medicines, such as: ?Antibiotics to treat bladder infection. ?Antispasmodics to stop the bladder from releasing urine at the wrong time. ?Tricyclic antidepressants to relax bladder muscles. ?Injections of botulinum toxin type A directly into the bladder tissue to relax bladder muscles. Surgery, such as: ?A device may be implanted to help manage the nerve signals that control urination. ?An electrode may be implanted to stimulate electrical signals in the bladder. ?A procedure may be done to change the shape of the bladder. This is done only in very severe cases. Follow these instructions at home: Eating and drinking Make diet or lifestyle changes recommended by your health care provider. These may include: ?Drinking fluids throughout the day and not only with meals. ?Cutting down on caffeine or alcohol. ?Eating a healthy and balanced diet to prevent constipation. This may include: ?Choosing foods that are high in fiber, such as beans, whole grains, and fresh fruits and vegetables. ?Limiting foods that are high in fat and processed sugars, such as fried and sweet foods. Lifestyle Lose weight if needed. Do not use any products that contain nicotine or tobacco. These include cigarettes, chewing tobacco, and vaping devices, such as e-cigarettes. If you need help quitting, ask your health care provider. General instructions Take fvmz-dcf-tbdsosl and prescription medicines only as told by your health care provider. If you were prescribed an antibiotic medicine, take it as told by your health care provider. Do not stop taking the antibiotic even if you start to feel better. Use any implants or pessary as told by your health care provider. If needed, wear pads to absorb urine leakage. Keep a log to track how much and when you drink, and when you need to urinate. This will help your health care provider monitor your condition. Keep all follow-up visits. This is important. Contact a health care provider if: You have a fever or chills. Your symptoms do not get better with treatment. Your pain and discomfort get worse. You have more frequent urges to urinate. Get help right away if: You are not able to control your bladder. Summary Overactive bladder refers to a condition in which a person has a sudden and frequent need to urinate. Several conditions may lead to an overactive bladder. Treatment for overactive bladder depends on the cause and severity of your condition. Making lifestyle changes, doing Kegel exercises, keeping a log, and taking medicines can help with this condition. This information is not intended to replace advice given to you by your health care provider. Make sure you discuss any questions you have with your health care provider. Document Revised: 01/25/2021 Document Reviewed: 01/25/2021 [employer] Patient Education 2023 [employer]. 01/30/2024 10:50:34 Hematuria, Adult Hematuria, Adult Hematuria is blood in the urine. Blood may be visible in the urine, or it may be identified with a test. This condition can be caused by infections of the bladder, urethra, kidney, or prostate. Other possible causes include: Kidney stones. Cancer of the urinary tract. Too much calcium in the urine. Conditions that are passed from parent to child (inherited conditions). Exercise that requires a lot of energy. [...] cancers. Follow these instructions at home: Medicines Take bmco-vts-bbrvobj and prescription medicines only as told by your health care provider. If you were prescribed an antibiotic medicine, take it as told by your health care provider. Do not stop taking the antibiotic even if you start to feel better. Eating and drinking Drink enough fluid to keep your urine pale yellow. It is recommended that you drink 3 4 quarts (2.8 3.8 L) a day. If you have been diagnosed with an infection, drinking cranberry juice in addition to large amounts of water is recommended. Avoid caffeine, tea, and carbonated beverages. These tend to irritate the bladder. Avoid alcohol because it may irritate the prostate (in males). General instructions If you have been diagnosed with a kidney stone, follow your health care provider's instructions about straining your urine to catch the stone. Empty your bladder often. Avoid holding urine for long periods of time. If you are female: ?After a bowel movement, wipe from front to back and use each piece of toilet paper only once. ?Empty your bladder before and after sex. Pay attention to any changes in your symptoms. Tell your health care provider about any changes or any new symptoms. It is up to you to get the results of any tests. Ask your health care provider, or the department that is doing the test, when your results will be ready. Keep all follow-up visits. This is important. Contact a health care provider if: You develop back pain. You have a fever or chills. You have nausea or vomiting. Your symptoms do not improve after 3 days. Your symptoms get worse. Get help right away if: You develop severe vomiting and are unable to take medicine without vomiting. You develop severe pain in your back or abdomen even though you are taking medicine. You pass a large amount of blood in your urine. You pass blood clots in your urine. You feel very weak or like you might faint. You faint. Summary Hematuria is blood in the urine. It has many possible causes. It is very important that you tell your health care provider about any blood in your urine, even if it is painless or the blood stops without treatment. Take qpzj-nfl-mvdbxas and prescription medicines only as told by your health care provider. Drink enough fluid to keep your urine pale yellow. This information is not intended to replace advice given to you by your health care provider. Make sure you discuss any questions you have with your health care provider. Document Revised: 01/06/2021 Document Reviewed: 01/06/2021 [employer] Patient Education 2023 [employer] 01/30/2024 10:50:34 Dietary Guidelines to Help Prevent Kidney Stones Dietary Guidelines to Help Prevent Kidney Stones Kidney stones are deposits of minerals and salts that form inside your kidneys. Your risk of developing kidney stones may be greater depending on your diet, your lifestyle, the medicines you take, and whether you have certain medical conditions. Most people can lower their risks of developing kidney stones by following these dietary guidelines. Your dietitian may give you more specific instructions depending on your overall health and the type of kidney stones you tend to develop. What are tips for following this plan? Reading food labels Choose foods with no salt added or low-salt labels. Limit your salt (sodium) intake to less than 1,500 mg a day. Choose foods with calcium for each meal and snack. Try to eat about 300 mg of calcium at each meal. Foods that contain 200 500 mg of calcium a serving include: ?8 oz (237 mL) of milk, bcsdtwu-lduernxnlknp-loyij milk, and calcium-fortifiedfruit juice. Calcium-fortified means that calcium has been added to these drinks. ?8 oz (237 mL) of kefir, yogurt, and soy yogurt. ?4 oz (114 g) of tofu. ?1 oz (28 g) of cheese. ?1 cup (150 g) of dried figs. ?1 cup (91 g) of cooked broccoli. ?One 3 oz (85 g) can of sardines or mackerel. Most people need 1,000 1,500 mg of calcium a day. Talk to your dietitian about how much calcium is recommended for you. Shopping Buy plenty of fresh fruits and vegetables. Most people do not need to avoid fruits and vegetables, even if these foods contain nutrients that may contribute to kidney stones. When shopping for convenience foods, choose: ?Whole pieces of fruit. ?Pre-made salads with dressing on the side. ?Low-fat fruit and yogurt smoothies. Avoid buying frozen meals or prepared deli foods. These can be high in sodium. Look for foods with live cultures, such as yogurt and kefir. Choose high-fiber grains, such as whole-wheat breads, oat bran, and wheat cereals. Cooking Do not add salt to food when cooking. Place a salt shaker on the table and allow each person to add their own salt to taste. Use vegetable protein, such as beans, textured vegetable protein (TVP), or tofu, instead of meat in pasta, casseroles, and soups. Meal planning Eat less salt, if told by your dietitian. To do this: ?Avoid eating processed or pre-made food. ?Avoid eating fast food. Eat less animal protein, including cheese, meat, poultry, or fish, if told by your dietitian. To do this: ?Limit the number of times you have meat, poultry, fish, or cheese each week. Eat a diet free of meat at least 2 days a week. ?Eat only one serving each day of meat, poultry, fish, or seafood. ?When you prepare animal proteins, cut pieces into small portion sizes. For most meat and fish, one serving is about the size of the palm of your hand. Eat at least five servings of fresh fruits and vegetables each day. To do this: ?Keep fruits and vegetables on hand for snacks. ?Eat one piece of fruit or a handful of berries with breakfast. ?Have a salad and fruit at lunch. ?Have two kinds of vegetables at dinner. You may be told to limit foods that are high in a substance called oxalate. These include: ?Spinach (cooked), rhubarb, beets, sweet potatoes, and Burmese chard. ?Peanuts. ?Potato chips, british virgin islander fries, and baked potatoes with skin on. ?Nuts and nut products. ?Chocolate. If you regularly take a diuretic medicine, make sure to eat at least 1 or 2 servings of fruits or vegetables that are high in potassium each day. These include: ?Avocado. ?Banana. ?[place], prune, carrot, or tomato juice. ?Baked potato. ?Cabbage. ?Beans and split peas. Lifestyle Drink enough fluid to keep your urine pale yellow. This is the most important thing you can do. Spread your fluid intake throughout the day. If you drink alcohol: ?Limit how much you have to: ?0 1 drink a day for women who are not . ?0 2 drinks a day for men. ?Know how much alcohol is in your drink. In the [place] one drink equals one 12 oz bottle of beer (355 mL), one 5 oz glass of wine (148 mL), or one 1 oz glass of hard liquor (44 mL). Lose weight if told by your health care provider. Work with your dietitian to find an eating plan and weight loss strategies that work best for you. General information Talk to your health care provider and dietitian about taking daily supplements. Depending on your health and the cause of your kidney stones, you may be told: ?Do not take high-dose supplements of vitamin C (1,000 mg a day or more). ?To take a calcium supplement. ?To take a daily probiotic supplement. ?To take other supplements such as magnesium, fish oil, or vitamin B6. Take ikow-hvl-nvuhypk and prescription medicines only as told by your health care provider. These include supplements. What foods should I limit? Limit your intake of the following foods, or eat them as told by your dietitian. Vegetables Spinach. Rhubarb. Beets. Canned vegetables. Pickles. Olives. Baked potatoes with skin. Grains Wheat bran. Baked goods. Salted crackers. Cereals high in sugar. Meats and other proteins Nuts. Nut butters. Large portions of meat, poultry, or fish. Salted, precooked, or cured meats, such as sausages, meat loaves, and hot dogs. Dairy Cheeses. Beverages Regular soft drinks. Regular vegetable juice. Seasonings and condiments Seasoning blends with salt. Salad dressings. Soy sauce. Ketchup. Barbecue sauce. Other foods Canned soups. Canned pasta sauce. Casseroles. Pizza. Lasagna. Frozen meals. Potato chips. Vietnamese fries. The items listed above may not be a complete list of foods and beverages you should limit. Contact a dietitian for more information. What foods should I avoid? Talk to your dietitian about specific foods you should avoid based on the type of kidney stones you have and your overall health. Fruits Grapefruit. The item listed above may not be a complete list of foods and beverages you should avoid. Contact a dietitian for more information. Summary Kidney stones are deposits of minerals and salts that form inside your kidneys. You can lower your risk of kidney stones by making changes to your diet. The most important thing you can do is drink enough fluid. Drink enough fluid to keep your urine pale yellow. Talk to your dietitian about how much calcium you should have each day, and eat less salt and animal protein as told by your dietitian. This information is not intended to replace advice given to you by your health care provider. Make sure you discuss any questions you have with your health care provider. Document Revised: 08/18/2022 Document Reviewed: 08/18/2022 Elsevier Patient Education 2023 [employer]. Follow Up Care 01/08/2024 16:41:10 With:JOHNNA Joya APRN, GYPSY Rodriguez, URL Address: When: Unknown Comments:3-4 mos [facility] 01-30-2024 Note Patient Education Nephrology Dietary Guidelines to Help Prevent Kidney Stones Kidney stones are deposits of minerals and salts that form inside your kidneys. Your risk of developing kidney stones may be greater depending on your diet, your lifestyle, the medicines you take, and whether you have certain medical conditions. Most people can lower their risks of developing kidney stones by following these dietary guidelines. Your dietitian may give you more specific instructions depending on your overall health and the type of kidney stones you tend to develop. What are tips for following this plan? Reading food labels ? Choose foods with no salt added or low-salt labels. Limit your salt (sodium) intake to less than 1,500 mg a day. ? Choose foods with calcium for each meal and snack. Try to eat about 300 mg of calcium at each meal. Foods that contain 200?500 mg of calcium a serving include: ? 8 oz (237 mL) of milk, uxtvhle-vfnpeefioafv-kyagv milk, and calcium-fortifiedfruit juice. Calcium-fortified means that calcium has been added to these drinks. ? 8 oz (237 mL) of kefir, yogurt, and soy yogurt. ? 4 oz (114 g) of tofu. ? 1 oz (28 g) of cheese. ? 1 cup (150 g) of dried figs. ? 1 cup (91 g) of cooked broccoli. ? One 3 oz (85 g) can of sardines or mackerel. Most people need 1,000?1,500 mg of calcium a day. Talk to your dietitian about how much calcium is recommended for you. Shopping ? Buy plenty of fresh fruits and vegetables. Most people do not need to avoid fruits and vegetables, even if these foods contain nutrients that may contribute to kidney stones. ? When shopping for convenience foods, choose: ? Whole pieces of fruit. ? Pre-made salads with dressing on the side. ? Low-fat fruit and yogurt smoothies. ? Avoid buying frozen meals or prepared deli foods. These can be high in sodium. ? Look for foods with live cultures, such as yogurt and kefir. ? Choose high-fiber grains, such as whole-wheat breads, oat bran, and wheat cereals. Cooking ? Do not add salt to food when cooking. Place a salt shaker on the table and allow each person to add their own salt to taste. ? Use vegetable protein, such as beans, textured vegetable protein (TVP), or tofu, instead of meat in pasta, casseroles, and soups. Meal planning ? Eat less salt, if told by your dietitian. To do this: ? Avoid eating processed or pre-made food. ? Avoid eating fast food. ? Eat less animal protein, including cheese, meat, poultry, or fish, if told by your dietitian. To do this: ? Limit the number of times you have meat, poultry, fish, or cheese each week. Eat a diet free of meat at least 2 days a week. ? Eat only one serving each day of meat, poultry, fish, or seafood. ? When you prepare animal proteins, cut pieces into small portion sizes. For most meat and fish, one serving is about the size of the palm of your hand. ? Eat at least five servings of fresh fruits and vegetables each day. To do this: ? Keep fruits and vegetables on hand for snacks. ? Eat one piece of fruit or a handful of berries with breakfast. ? Have a salad and fruit at lunch. ? Have two kinds of vegetables at dinner. ? You may be told to limit foods that are high in a substance called oxalate. These include: ? Spinach (cooked), rhubarb, beets, sweet potatoes, and Burmese chard. ? Peanuts. ? Potato chips, british virgin islander fries, and baked potatoes with skin on. ? Nuts and nut products. ? Chocolate. ? If you regularly take a diuretic medicine, make sure to eat at least 1 or 2 servings of fruits or vegetables that are high in potassium each day. These include: ? Avocado. ? Banana. ? [place], prune, carrot, or tomato juice. ? Baked potato. ? Cabbage. ? Beans and split peas. Lifestyle ? Drink enough fluid to keep your urine pale yellow. This is the most important thing you can do. Spread your fluid intake throughout the day. ? If you drink alcohol: ? Limit how much you have to: ? 0?1 drink a day for women who are not . ? 0?2 drinks a day for men. ? Know how much alcohol is in your drink. In the [place] one drink equals one 12 oz bottle of beer (355 mL), one 5 oz glass of wine (148 mL), or one 1? oz glass of hard liquor (44 mL). ? Lose weight if told by your health care provider. Work with your dietitian to find an eating plan and weight loss strategies that work best for you. General information ? Talk to your health care provider and dietitian about taking daily supplements. Depending on your health and the cause of your kidney stones, you may be told: ? Do not take high-dose supplements of vitamin C (1,000 mg a day or more). ? To take a calcium supplement. ? To take a daily probiotic supplement. ? To take other supplements such as magnesium, fish oil, or vitamin B6. ? Take eilo-ulb-lkcnauz and prescription medicines only as told by your health care provider. These include suppleme (more content not included)... [facility] 11-07-2023 Evaluation + Plan note Extrac galileo from: Title:[facility] Note Author:Francis HERNANDEZ, Gemma Lee . Date:11/07/23 Impression and Plan Assessment and Plan: Diagnosis: Adrenal adenoma (MQO10-HT D35.00, Working, Medical), Gross hematuria (WWF04-UR R31.0, Discharge, Medical), OAB (overactive bladder) (LNT91-IG N32.81, Discharge, Medical), TEAGAN (stress urinary incontinence, female) (XQL78-AW N39.3, Working, Medical). 53 year old female [...] AM Scheduled Provider:JOHNNA Joya APRN, [place] X Location:[facility] Appointment Type:URO Office Visit Diagnostic Tests Pending * Urine Cytology ([facility]) 11/07/23 [facility]06-18-2024 Hospital Discharge instructions Patient Education 11/07/2023 10:39:12 [...] up in 2 months with PVR With:Gemma Lue Address:Unknown When: Unknown [facility]06-18-2024 Note [id number] [facility] 11-07-2023 NoteCystoscopy ? Voiding after the procedure: [...] if you have a fever over 100 degrees.[facility] 11-03-2023 Instructions* Patient Instructions* Sharda Fontaine LPN [...] time of your visit. documented in this [facility] Work Phone: 1(368) 826-129705-17-2024 NoteChief Complaint referral HPI Staff Referral for dysuria, left flank pain and hematuria by Dr. Talbot. Pt was seen in [facility] ED 08/11/23 for urinary frequency and low back pain that had been ongoing at the time for a week. At that time she had been treated by PCP with [address] done 3/22/24 showed small non obstructing bilateral kidney stones [...] with voice recognition artificial intelligence software, specifically [employer], [employer] and or [employer]. Substitutions may have occurred due to the [...] work, dexamethasone testing. 3. Dysuria (R30.0: Dysuria) [facility] ER 08/11/2023-urinary frequency, low back pain [...] fluid intake so jah (more content not included)...[facility]Result Comment: Electronically Signed By: JOHNNA Joya APRN, Zulema Lema\.br\Date and Time Signed: 10/06/23 12:54 [id number] Evaluation + Plan note Diagnostic Tests Pending * Cortisol 10/03/23 * Lab Miscellaneous-LC 10/03/23 * Lab Miscellaneous-LC 10/03/23 [facility] 01-10-2024 Evaluation note* Encounter Date Diagnosis Assessment Notes Treatment Notes Treatment Clinical Notes May, Pain, joint, knee, left (ICD-10 - M25.562) Pt declines PT at this time. Will attempt MRI. She declines Ortho referral at this time as well. MRI order sent to [facility]. work note given for restrictions as she is unable to climb a lot of stairs due to pain. May, Uncontrolled hypertension (ICD-10 - I10) Reviewed labs w pt. No hypokalemia or other electrolyte abnormalities noted in Apr. [facility] 12-04-2023 Evaluation note* Encounter Date Diagnosis Assessment Notes Treatment Notes Treatment Clinical Notes Apr, Essential hypertension (ICD-10 - I10) [facility] 11-30-2023 Evaluation note* Encounter Date Diagnosis Assessment Notes Treatment Notes Treatment Clinical Notes Mar, Radicular syndrome of left leg (ICD-10 - M54.10) Agrees to imaging to r/o DDD or lumbar fracture. Mar, Leg pain, left (ICD-10 - M79.605) Discussed concern for DVT. US scheduled for today. [facility] 11-07-2023 Evaluation note* Encounter Date Diagnosis [...] verbalized understanding and agreement with treatment plan. [facility] 10-03-2023 Evaluation note* Encounter Date Diagnosis [...] Advised she limit NSAIDs and added omeprazole [facility] 03-30-2023 Evaluation note* Encounter Date Diagnosis Assessment Notes Treatment Notes Treatment Clinical Notes Jul, Uncontrolled hypertension (ICD-10 - I10) [facility] 03-17-2023 Evaluation note* Encounter Date Diagnosis Assessment Notes Treatment Notes Treatment Clinical Notes Jul, Dysuria (ICD-10 - R30.0) [facility] 12-16-2022 NotePROCEDURE: XR ANKLE LT MIN [...] Minimal degenerative joint disease. Electronically authenticated by: VLADIMIR PALACIOS Date: 2022-05-06 07:13[facility]12-16-2022 NotePROCEDURE: XR ANKLE LT MIN 3 [...] Minimal degenerative joint disease. Electronically authenticated by: VLADIMIR PALACIOS Date: 2022-05-06 07:13[facility]05-12-2022 NotePROCEDURE: XR ELBOW LT MIN 3 VIEWS HISTORY: Pain of left elbow joint , acute; limited range of motion COMPARISON: None. FINDINGS: BONES:No fracture, acute abnormality, or significant arthropathy. SOFT TISSUES:No visible soft tissue swelling. EFFUSION:None visible. OTHER: Negative. IMPRESSION: 1. Normal examination. Electronically authenticated by: VLADIMIR PALACIOS Date: 2021-09-30 16:50[facility] Narrative - ReportedHENRRY MELÉNDEZ is being seen for a consultation for blood pressure issues.[facility] 250 DO Work Phone: Evaluation + Plan note Future Appointments Appointment Date:01/30/2024 09:30:00 AM Scheduled Provider:JOHNNA Joya APRN, [place] X Location:[facility] Appointment Type:URO Office Visit [facility] evaluation + Plan note Future Appointments Appointment Date:02/14/2024 03:40:00 PM Scheduled Provider:Mikhail VENEGAS MD Location:[facility] Appointment Type:[place] [id number] [facility] evaluation noteNo InformationN[employer] Other Evaluation noteNo assessment information available [facility] Work Phone: Evaluation note* Diagnosis Onset Date Resolution Status Dysuria acute Hematuria acute Left flank pain acute [facility] Work Phone: Evaluation note* Diagnosis Palpitations- Primary Essential hypertension Unspecified essential hypertension Shortness of breath BMI 40.0-44.9, adult (Multi) Current smoker documented in this encounter [facility] Work Phone: Evaluation note* Diagnosis Onset Date Resolution Status Rectal bleeding acute [facility] Work Phone: History general Narrative - Reported* [...] LYSIS OF ADHESIONS 09/2015 Hospitalization History SEE [facility] Other History of Present illness Narrative* Patient [...] to retrieve her recent Holter monitor from [place] * 3. I suggested a trial of [...] diet * 6. Follow-up in 4 months [facility] 250 DO Work Phone: History of Present illness Narrative* Patient is here for follow-up continue management for recent evaluation for palpitation following discontinuation of her beta-josefina, hypertension, obesity. Since last time I saw her she feels her symptoms slightly improved. But continued to experience some palpitation midday. She has been taking her metoprolol during the night. Her recent Holter monitor showed mild sinus tachycardia but no significant tachyarrhythmia. Echocardiogram was normal * Assessment * 1. Symptoms of palpitation there is mild sinus tachycardia due to withdrawal of beta-josefina seem to be improving with reinstituting a smaller dose of beta-josefina * 2. Hypertension seem to be better [...] diet * 5. Follow-up in 4 months [facility] 250 DO Work Phone: Hospital course Narrative No data available for this section [facility] Hospital Discharge instructionsAmbulatory Orders* Referral to Urology Time Frame: 08/09/23, Location: [facility] Work Phone: Hospital Discharge instructions No data available for this section [facility] Hospital Discharge instructionsAmbulatory Orders* Referral to General Surgery Time Frame: 01/18/24, Location: None Selected [facility] Work Phone: Progress note No data available for this section [facility] reason for referral (narrative)* Consultation (Routine) - Authorized Specialty Diagnoses / Procedures Referred By Contac t Referred To Contact Cardiology Diagnoses Essential hypertension Procedures Follow Up In Cardiology Bonny Meyer MD [address] [place] [address] [address], [address] [address] Bonny Meyer MD [address] [place] [address] 2, [address] [address] Referral ID Status Reason Start Date Expiration Date V isits Requested Visits Authorized [id number] Authorized 11/03/2023 11/02/2024 1 1 [facility] Work Phone: Summary Purpose Family History Unknown Family Member Name Dates Details Heart [...] Unknown Malignant neoplasm Unknown sister Hypothyroidism Unknown Relationship Condition Age at Onset Recorded Date/T kayley brother Alcohol abuse Unknown father Unknown Hypertension Unknown mother Unknown Heart disease Unknown Diabetes mellitus Unknown Malignant neoplasm Unknown sister Hypothyroidism Unknown Advance Directives Advance Directive Response Recorded Date/ Time Advance Directives No June 22, 2023 9:36am Advance Directive Response Recorded Date/ Time Advance Directives No January 12, 2024 2:16pm Chief Complaint HENRRYDILIP MELÉNDEZ is being seen for a 4 month follow-up of. Reason for Referral Reason B hands aching, cant make a fist w R hand, chronic pain Diagnosis 1 Dupuytren's contract ure of right hand (M72.0) Referral Organization [facility] Referring Provider First Name Carrie Referring Provider Last Name Ronaldo Referring Provider Specialty Family [facility] Referred Organization [facility] Referred Provider Deisi Branch Referred Address [address] [place],[address] Referred Provider Specialty Orthopedic S urgery Referral Priority Routine General Notes Sandhya Fleming 02:27:21 PM >received today, sent P2P Chief Complaint and Reason for Visit Chief Complaint Noms Uc F/U- Knee Pa in UA-Pain, Frequency, Urgency Chief Complaint Noms Uc F/U- Knee Pa in UA-Pain, Frequency, Urgency Bladder/ Left Flank Area Reason for Visit Dysuria Hematuria Left flank pain Chief Complaint Bowel Bleeding Reason for Visit Rectal bleeding Additional Source Comments INFORMATION SOURCE (unrecogn ized section and content) DATE CREATED AUTHOR 06/30/2022 [facility] DATE CREATED AUTHOR AUTHOR'S ORGANIZ ATION 12/03/2022 [facility] ical Center DATE CREATED AUTHOR AUTHOR'S ORGANIZ ATION 12/03/2022 [facility] DATE CREATED AUTHOR AUTHOR'S ORGANIZ ATION 08/12/2023 [facility] DATE CREATED AUTHOR AUTHOR'S ORGANIZ ATION 11/04/2023 [facility] DATE CREATED AUTHOR AUTHOR'S ORGANIZ ATION 01/31/2024 [facility] DATE CREATED AUTHOR AUTHOR'S ORGANIZ ATION 02/06/2024 [facility] EPIC DATE CREATED AUTHOR AUTHOR'S ORGANIZ ATION 02/13/2024 [facility] REASON FOR VISIT (unrecogniz ed section and content) Reason Comments Follow-up overdue Care Teams (unrecognized sec tion and content) Personnel Name: CARRIE TALBOT MD Address: Address: [facility] Team Status: Active Member Role Status Dates Carrie Talbot MD Primary Care Provider Active Team Status: Inactive Member Role Status Dates Carrie Talbot MD Attending Provider Active St art: May 31, 2023 End: May 31, 2023 Team Status: Inactive Member Role Status Dates Carrie Talbot MD Primary Care Provide r, Attending Provider Active Start: August 03, 2023 End: August 03, 2023 Team Status: Inactive Member Role Status Dates Carrie Talbot MD Primary Care Provide r, Attending Provider Active Start: August 09, 2023 End: August 09, 2023 Team Status: Inactive Member Role Status Dates Carrie Talbot MD Attending Provider Active St art: August 09, 2023 End: August 09, 2023 Managing Director Relationship Specialty Start Date End Date Carrie Talbot MD [address] [place] [address] PCP - General 08/11/22 Team Status: Inactive Member Role Status Dates Carrie Talbot MD Primary Care Provide r, Attending Provider Active Start: January 18, 2024 End: January 18, 2024 Goals (unrecognized section and content) Goals [...] BE BASED ON THE PRIMARY CLINICAL RECORDS. [employer] provides no warranty or guarantee of the accuracy or completeness of information in this document.
== END 2024-03-04 12:32 | disposition home or self-care (01) ==
LOC: PST 12:31
PROVIDERS: PCP Family Medicine; Visit Provider Surgery
DX: Z01.818 Encounter for other preprocedural examination (principal); K62.5 Hemorrhage of anus and rectum; R10.9 Unspecified abdominal pain

== ENCOUNTER 2024-03-04 20:02 | Outpatient (REF) | payer OTHER, SELFPAY ==
--- OUTSIDE RECORDS SUMMARY | 2024-03-04 20:05 | XMS_ITS | CCD ---
Author Organization [facility] Care Team Providers Care Digester Name Role Phone SHAUNA, DR JUAN CARLOS [...] Attending Unavailable CARRIE TALBOT Primary Care Physician [phone] Carrie Talbot MD Primary Care Provider BONNY MEYER Attending Unavailable CARRIE TALBOT Primary [...] source) cefdinir Drug Allergy 08-08-19 24 Unknown [facility] Opioid Agonists (1 source) Codeine Drug Allergy 05-25-19 24 Hives, Unknown [facility] Work Phone: Quinolones (antibiotic) (1 source) Ciprofloxacin Drug Allergy 11-03-19 24 Other [facility] (5 sources) Cefuroxime Drug Allergy Unknown [facility] Other (18 sources) Codeine; Translations: [CODEINE] Drug Allergy 05-25-19 Weal (disorder) [facility] (5 sources) Pseudoephedrine Drug Allergy Unknown [facility] Other (2 sources) cefdinir; Translations: [cefdinir] Drug Allergy 08-08-19 24 Other [facility] 3 Repository (6 sources) Ceftin *CEPHALOSPORINS* Propensity to adverse reactions 02-12-20 13 Unknown [facility] Other (6 sources) Pseudoephedrine HCl *NASAL AGENTS - SYSTEMIC AND T Propensity to adverse reactions 02-12-20 13 Unknown [facility] Other (4 sources) Cephalosporins (Antibiotic) Allergy to substance 05-31-19 [facility] (4 sources) Pseudoephedrine HCl *NASAL AGE Allergy to substance 05-31-19 24 [facility] (7 sources) Acetaminophen / Dextromethorphan / Doxylamine / Pseudoephedrine; Translations: [APAP/dextromethorp dwyer/doxylamine/PSE] Drug Allergy Unknown (qualifier value) [facility] (8 sources) Ciprofloxacin; Translations: [ciprofloxacin] Drug Allergy 11-03-19 Unknown (qualifier value), Weal (disorder) [facility] (2 sources) Acetaminophen; Translations: [acetaminophen] Drug Allergy [facility] Repository Medications Current Medications Medication Drug [...] day, # 1 tab(s), Refills(s) 0, Pharmacy: [facility] 1155, 163, cm, 10/03/23 10:16:00 EDT, [...] Daily, # 30 tab(s), Refills(s) 11, Pharmacy: [facility] 1155, 163, cm, 10/03/23 10:16:00 EDT, [...] Coronary arteriosclerosis; Translations: [Atherosclerotic heart disease of [place] coronary artery without angina pectoris] 09-28-2023 Chronic [...] 2 Chronic Other aftercare (1 source) Other intermediate manager (current) drug therapy; Translations: [OTH CLIENT SOLUTIONS SPECIALIST CURRENT DRUG THERAPY] Onset: 3 Episodic Other [...] Attending Physician - Toan PARK, JOHNNA, Zulema Lmea Primary Care Physician - CARRIE TALBOT MD [...] PM EDT With: Mikhail VENEGAS MD Where: [facility] Surgery [address], [address], [place] [id number]- Medications What How Much When Why Instructions [...] for choosing us for your care. Normal [facility] Reminderson 01-30-2024 Reminders Reminders From: Yvette Hilliard To: EU - Administrative; Sent: 01/30/2024 10:26:31 EDT Show up: 03/22/2024 10:26:00 EDT Subject: Ambulatory Reminder Due Date/Time: 05/31/2024 10:26:00 EST Reminder/Recall Patient needs scheduled with AO for a 4M f/u, due back in May of 2024 [facility] Urology Office/Clinic Noteon 01-30-2024 Urology Office/Clinic [...] with voice recognition artificial intelligence software, specifically [employer], [employer] and or [employer]. Substitutions may have occurred due to the [...] any recent stone passing. [1] [facility] at 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 Normal [facility] Comment on above: Result Comment: Elec tronically Signed By: JOHNNA Joya APRN, Zulema eLma\.br\Date and Time Signed: 01/30/24 10:50 EDT Urine Cytology ([facility])on 0 11-12-2023 Microscopic exam Cytology (U) [Interp] Diagnosis Info Invalid Interpretation Code [facility] Comment on above: Result Comment: A:Ur ine,Cystoscopy:Cystoscopy Interpretation - MicroScopic Description - Adequacy - Gross Description Site ID:A color Light Yellow fixative Alcohol Specimen designated Cystoscopy received in alcohol preservative and labeled with the patient?s name, consists of 100ml clear light yellow fluid. Electronically signed by : on: 11/12/2023 10:13:54 Performed By: #### 1 [id number] #### [facility] Laboratory [address] [place] [address] Coding Summary.on 11-09-2023 Coding Summary. MUKIDtut67RUx8yWe+PG hl YWQ+PM4GRSJxS36viVNttW 5jE9RTZUvAVqpzEVZSCZsK BsBoocBeMJ4deSXwVSFs IC8+CE9zJWPjKegxuZVah4 T9vHA4T22kin8vWXiybUK6 MHMlOiAbdswje5zogZo2XJ cuNmluOyBt HEVntO96AYH9oA99Yl07vO GkiUMpa8uriZw1LpQlMWRr EHC9mObqWUlvv8UvKTElT1 7ntXVmx3S6 ERElrMxssYJjDoXcuRN1aX 0kLUvrlycwe7kmnxrxGzx2 in86hOWno4Z6wVB8B4Tdnf B0RAQglXEq HttniDKOeE4lhsqzm6reoo igGjReERSwGCa4KVu4FJIn bWneKxLgZV74VTC4RRDdvm QnP9LoMWZx zFmwYfN4t8R3Ll8QC8KPZr lgX5PKCKAZAEtcwXI+PC90 ww56T0GdJhdcUjf6IZYjVA W9bST9pB8c XUIxJTvir0Y7wYM4V2Vatl Uwkr7fs1laAJUuAXzwV89m hEIpd6X0HJVurGI9JKTvaW bmDaSusT28 Oyc+NMSxyGbnv9XqQzgco0 spd1rumQh2GummKZFcmfXc xForECJ0e5CbMp8kDRTebJ K6mUD6oX9q CeNyGmP0RZqkX910IxXqfT DsEdhkE98jX8KqsQD+PHRy Gwm0IYFmcUifES9oE2AoUT RpbmctbGVm hErvOS6zKUEjbykqAUVleS 5fWJKeY0g6TlBoHwJ2MZdp R6VmQDNjekjxKu83jE3xWy RcAuB5FJkq Z5CnleL1KTOlnEWhXRopIY V2Y07xh8F0JGKpFBMmSLH3 rMG9pQ7voDpncsnckTAliG sgdmVydGlj OCwxTVdoI220FUVooKsqUw NvZGluZyBEYXRlOiAgMDYv MjAvMjAyNDwvdGQ+PHRkIH U2eGbwNMLq hXNhNMdtVq9rlHcteXqvGO 5qAZAtxgxkFLUdcL1jNFIb xWBpnZnfXY1yXHMgkayxv4 17HjKiRHC1 UXHtcBHoA6DnjJ2hDcNoBR ZcLNWcK1GviHVrNIspM769 CFgmExP1EEPnbjElS8MaJK FsaWduOiB0 r6K8Zc4Tg2BdqirjZ9PwuS XbDsPaGuvaPKl3G4KhUojl dHI+ER70MHHcIR67FDo7RM L7dWecKVgb GKDhV4TqgG7sEsVtUDXdHX RkOyc+PHRhYmxlIHdpZHRo JZcdQZAhWuKqqQdqWR3aKb 9yZGVyLWNv rPcchODjAwMoz2odCIDoBT xhZR7pmHebY5IsnVV0VRKt j2v5Qw67T17qO1OinCP+PG KwmKD2sRE6 cA3kZaEjYuL4GKnmP184Hu AyzEEcEqlzs2ocw1eovVy9 NeZ7QZNcniVaaMgiGIY5t7 BzPc60A03f IHdpZHRoPSIxNSUiIHZhbG yolh5xqN9fTk5+PGNvbCB3 aPU6kB2fNtWxWeX8RJabL6 49InRvcCIv Etvtd7ttd2trrLt8ApWeAR EmozLuzOguSPG1y0SjUb75 W1YquUeui5IqIre9yr03wV Ipr6Z5iDB0 P4DmJKTjprmhsGMvrRpuDY 4sTYKumhfxPNQfbO0jUJWk D2c1EyWlXjS4BDdkC5Msep Z5XTTakISj CONmzSNHsX5fhaytx0mrig eeWoXkGURvPEt8DXr1PNUi pZthXkThFFA2OvH5HTY6cG DxoD0snWnk sxwdcF9qFjf+OVP1vTXumJ DGRA5uPwqxiNA+PHRkIHN0 eXwiRFnlDDUlkN5bRLBfE5 w6VfOfUhT0 NFjeJ4DvuwJ9DOWphJIdMK GabHONfV3uduzlf2lxigfs LeLrGIAoWYd1IQf0IILrfN duOiBsZWZ0 NnV8PXB9kUXkoN7fiJbylj qrhR4hHup+QmlydGggRGF0 HIp4Z9PsQkp9TIAkuKtzBS 0ncGFkZGlu Fw9mnKjxdNfxXN5wPRJyqv drb845EzTeb7zuLEYroZHo OEtoZME1N45qq3F3GEZxWB RlNTN0wDG9 lC8vaOpjiihjmSMlnUkvcc HyuVffTAreJMhzD609YISx gBcaOzEvJEg7R9FwDhu1FN ChfSbzPP2h gETqXVaoVj8xiCpbeMtwFO 2eADSytyqqs802ScInn4ge HAKumGLyFLbsSXG6O47xk3 E8KNPxSVDm AOW1xUT0nG6mjRrluuxwpL VmdDsgdmVydGljYWwtYWxp E445BNJwmWsjRvMwpPm2J5 LnYmo2WDCh bYzxPW7evZUvQVbkXn1lgN zzmWzxPN0wQVZdezqhf345 HaMxy3bpAKGnmGYjTUkaMI G2D51lp7R4 UXYrMQXpIPW5hLF0tC7geZ lnbjogbGVmdDsgdmVydGlj BZmvLKrzO537ODKrzPulRi BhdGllbnQg SBxrNDe1G2HgRqmgnAY+PC 29UFGbUV29vVAisMQgt4kq tBi0IeSiGSHqSNZ6pJcaSY jve1LwSVMp Y18qlCXqa3C3IHXmcNucmG GeVdAxmAK1pN7hTJmpnyyl t8gxfclrWfkek3vbin38cN 11A81kRUgk ZHRoPSIzMCUiIHZhbGlnbj 8riM2tPw9+PDJsxOL1jPY0 lH1aOQVxMwE1JTotE546Im RvcCIvPjxj f0nct0bycXm6XmY0ABBjkz KfvEmyJUA0i1McPc48Z21d IHdpZHRoPSIyMCUiIHZhbG clkq7vaH0b Ii8+VJRfuNN9iHO3aC5pPw XyEbC3NVqvV279GaPkdGJi BqfnX07tF8LekZC+PHRyPj t7DANqxIjt OB7cuDXkXZkmHc9cMYB4Kt RaDtYhNEyoV3BxKANmgkfv kgrtlIJ7LLRbDCDnlL25Pt 9udDogMTBw aVAEiT8zgtmcl5pmxuviEn SqOULpPZj5FCq1ZIVxdWsu MwFiHFK8PcN7EFT4tLWqaT 1hbGlnbjog aE0dV0HaCBJxyyqwVn01fN 4rBgPoPfQ1SDioKhx+UEhJ EQDSPKCSUOULVV9FTK15PR 95kBZrl3B7 yWU3I2CrFUIagxgiiysduF L5GWEtKNToaK08rPMjXIee Kz9uk0I2t562DPYqAJPnzV 46Ai9bxDpy ZWOgfUJKrE6jjmfax2fvkl acWuXaUBVeBCz9RLu7MHAs gKcwAhNvPWT9InB8CPZ7lO UiaJ0fuVxs khqkiV8kVog+MTIvMjcvMT z2NztibQO+OONcTQE3gFfb BSphNNJqaH9iMIZrT7t2Sa SaGzT9HXbl L2IaUJFvaaajPv52cL5aEd WmQuP8MNdfO3UixeZ0VLEa iNVtOHwpCXG0O49wm9L6ZA MwMDAwMDA7 iUZ1vE2adZntdwprePFiqF cdqkZlyBzeZPkvQGdqU968 IHRvcDsnPjUxIFllYXJzPC 10PB85yMHa e1A3bDS2W3QySMVnvmpjna vgvAV5USCiLOVccO65yNVp DSolKo4sl0X3y678EVMwXT WzoQ02Qq0n eYrfYGIohVUSbZ1ubykqd1 euxcgxCbVbEAPaMQa0YHo0 GVSzcPpxNiBiFBR4SzJ4GK Q1jZFwqW3p qVnsmplsdO7nOtk+RmVtYW qcWI08HX28dSQsp0Y0aAE0 Z7QgTWUnkamiiqlurCZ5OB HqNZSjvM28 cUYlNCskIk6bk4W0w848MJ RtCVZzcN69Ld9vvBuyJRGb sKUFuJ2ttvbut1blvpvdWe AwMDAwMDt0 DMm9TVYewWheKfCkOTN9Zs R2RZV3gRMnxK9zrJlyceqz eQ3yAhc+Q0R1dDQ2xXVssL wvdGQ+PC90 dq49J9RaBvkiSjy5VXYdKU M1mBC3gJ9eCIGtFEiwp6L1 uVQ0D5WdyoPein3ee8gjNJ PqYVlwL43s qLBsb1J2CWWewWE3JVHdfX rwJxJdtZ96Vuh+PGNvbGdy g5RtJrqjn2veo6gugBz1Pf MwJSIgdmFs pZgdFQP0g1ZdSb22O19wCG dpZHRoPSIzMCUiIHZhbGln pr8cnH4tXo6+IXJjuWP2fJ D2uJ9bHiXh ZdH6THbzF265AcEjiKJnSx ovr1xnc6ozdJl1HbLmYNLl odMwfAmrFUY4z6EiKm20E0 IwnTxfe6Mk Epp8ay74qANhw2J9hTG3I7 XjFFPcpgfhaLNchSptDY7m STYfhjypOXNuoX4tYHGaA3 t1FlKqEoG5 YDhvN0CinjX3RQTjhNUgTN RjoLGTqS5flvjsj4irista RlYkJSSiWAf0FVg4OEItnR duOiBsZWZ0 GeD7ECI8kQEqqG3zxNufww fikT2bCrf+WUr2l6liuZNv KF5lxOH1VX87SD69oXOtd6 W2gNI1D3Ba DWYrpbfyrzqahSV5FPVnIE WydR76Dz9wvMitAw3oGRSe FCZ8DDCppOZbC3BxwD8yWu AjMDAwMDAw O0DifAUtYYnoE127IJdtTl A4WSZunuGkZ5QqQUOpfYwe YeJ5h9P9Rb7AMO99NB46TY 55wJFxk5I3 qSD0O0SlXZSykmclcmmggN H1OSIrYTNwdJ13Uu3kkUqg Oe2fNLPnWKL7HCEgxPZuW4 FpfK7kUaDa NVHpBVQjZ2KtcFSpUXecA9 66MYjmHhW4RNKjauFkU5Jo RYZnrOqrWkX5q6G3Ib5YZc 00AO45QE78 lZZzo1U5zRX7U8SiUZZxin sfovsvmMN5IRFjEJLhxD44 Av1mdOaiRa5oTZYuXWY8JN VixLVqD5Cd mF9rJyIzIVRmNGAfX9ExiZ MaZXxlC270YZwaUxG2UJEt xuLgG6ImKRWcaJlyKfO5c0 V7Nz9YJWje ijb7O2SoRfzmfEW+PC90YW EvCJ25xJAeuPMzw7lfzCn7 RpAhUPJaCTT8uNtlAXswx8 DhYBDhD76s wYXlu0O1GQTnh (more content not included)... Normal [facility] Consent for Procedure/Surger yon 11-07-2023 Consent for Procedure/Surgery [id number] 0TIFF Normal [facility] Consent for Treatmenton 10-20 Consent for Treatment [id number]#1.0 0TIFF Normal [facility] Inpatient Patient Summaryon 11-07-2023 Inpatient Patient Summary [place] [id number] Clinical Summary Person Information Name: HENRRY MELÉNDEZ Age: 53 Years : 1970 Sex: Female PCP: CARRIE TALBOT MD Marital Status: Race: White Ethnicity: Non- or Language: Albanian Visit Id: Visit Reason: GROSS HEMATURIA Speciality: Acuity: Enc Type: Outpatient Med Service: Surgery Arrival: 11/07/2023 09:24:15 Discharge: Dispo Type: Address: [address] [place] [address] [id number] Provider Notes: Diagnosis: Gross hematuria; OAB (overactive [...] EU - Cystoscopy Discharge Instructions (CUSTOM) Normal [facility] IntraOperative Documentson 0 11-07-2023 IntraOperative Documents [id number] 0TIFF Normal [facility] Lab Reportson 11-07-2023 Lab Reports [id number]#1.0 0TIFF [facility] Main OR Intraoperative Recor don 11-07-2023 Main OR Intraoperative Record IntraOp Document Type FTURO Summary Primary Physician: Gemma Blanco MD Finalized Date/Time: 11/07/23 10:45:52 Pt. Name: HENRRY MELÉNDEZ/Sex: 1970 Female Med Rec #: [id number] Physician: Gemma Blanco MD Financial #: [id number] Pt. Type: O Room/Bed: / Admit/Disch: 11/07/23 [...] Evi Pitt Role Performed Surgeon - Primary Boot Liner Maker - Primary Scrub - Primary Time In [...] 10:40 Magali Lantigua RN 11/07/23 10:45 Normal [facility] Main OR Preoperative Recordo n 11-07-2023 Main OR Preoperative Record Holding Area Document Type FTURO Summary Primary Physician: Gemma Blanco MD Finalized Date/Time: 11/07/23 09:53:28 Pt. Name: HENRRY MELÉNDEZ/Sex: 1970 Female Med Rec #: [id number] Physician: Gemma Blanco MD Financial #: [id number] Pt. Type: O Room/Bed: / Admit/Disch: 11/07/23 [...] JARETT Sanchez RN, Ruthann 11/07/23 09:53 Normal [facility] Operative Reporton Operative Report Patient: HENRRY [...] OAB and adrenal adenoma workup . Normal [facility] Comment on above: Result Comment: Elec tronically Signed By: Gemma Blanco MD\.br\Date and Time Signed: 11/07/23 10:42 EDT Outpatient Surgery Discharge Instructionon 11-07-2023 Outpatient Surgery Discharge Instruction [id number] 0TIFF Normal [facility] Outpatient Surgery Discharge Instruction [place] [id number] Patient Discharge Instructions PERSON INFORMATION Name: HENRRY [...] Date You may receive a survey from [employer] asking you to rate your care experience. Your feedback is important and will help us understand what we do well and how we can improve the quality of care we provide to you, your loved ones and our community. It?s an honor to serve you. Thank you for choosing [facility] Normal [facility] Progress Note-Physicianon Progress Note-Physician Patient: HENRRY [...] day, # 1 tab(s), Refills(s) 0, Pharmacy: [facility], 163, cm, 10/03/23 10:16:00 EDT, Height/Length Dosing, 113.5, kg, 10/03/23 10:16:00 EDT, Weight Dosing... dexamethasone 1 mg oral tablet: 1 mg = 1 tab(s), Oral, Once, Take at 11 PM; Have cortisol level drawn at 8 AM the next day, # 1 tab(s), Refills(s) 0, Pharmacy: [facility], 163, cm, 10/03/23 10:16:00 EDT, Height/Length Dosing, 113.5, kg, 10/03/23 10:16:00 EDT, Weight Dosing... mirabegron 50 mg oral tablet, extended release: 50 mg = 1 tab(s), Oral, Daily, # 30 tab(s), Refills(s) 11, Pharmacy: [facility], 163, cm, 10/03/23 10:16:00 EDT, Height/Length Dosing, 113.5, kg, 10/03/23 10:16:00 EDT, Weight Dosing Documented Medications Documented Pepcid AC: 20 mg, Oral, Once losartan 50 mg Tab: 50 mg = 1 tab(s) metoprolol 25 mg ER Tab: 25 mg = 1 tab(s), Oral, Daily spironolactone 25 mg Tab: 25 mg = 1 tab(s) Impression and Plan Assessment and Plan: Diagnosis: Adrenal adenoma (ZRO15-QF D35.00, Working, Medical), Gross hematuria (KFO19-DN R31.0, Discharge, Medical), OAB (overactive bladder) (PGK66-JB N32.81, Discharge, Medical), TEAGAN (stress urinary incontinence, female) (VQC74-QG N39.3, Working, Medical). 53 year old female [...] cysto neg -Follow up urine cytology Normal [facility] Comment on above: Result Comment: Elec tronically Signed By: Francis HERNANDEZ, Gemma Siegel\.br\Date and Time Signed: 11/07/23 10:46 EDT RAD - CT Reporton 11-07-2023 RAD - CT Report [id number]#1.00 TIFF Normal [facility] Urine Cytology ([facility])on 0 11-07-2023 Method of Extraction Cystoscopy Normal [facility] Comment on above: Performed By: #### 1 [id number] #### [facility] Laboratory [address] Number of Jars 1 Invalid Interpretation Code [facility] Comment on above: Performed By: #### 1 [id number] #### [facility] [address] Specimen Cystoscopy Normal [facility] Comment on above: Performed By: #### 1 [id number] #### [facility] [address] Type of Service Technical Only Normal [facility] Comment on above: Performed By: #### 1 [id number] #### [facility] [address] [place] [address] Lab Reportson 10-25-2023 Lab Reports [id number] 0TIFF Normal [facility] Lab Reportson 10-17-2023 Lab Reports [id number]#1.0 0TIFF Normal [facility] Patient Educationon 10-06-19 Patient Education Urology [...] these instructions at home: Medicines ? Take kmyu-qxx-nilqqqk and prescription medicines only as told by [...] provider. Document Revised: 12/18/2020 Document Reviewed: 12/18/2020 [employer] Patient Education ? 2022 [employer] Hematuria, Adult Hematuria is blood in [...] these instructions at home: Medicines ? Take mgwi-dom-jemldns and prescription medicines only as told by [...] follow y (more content not included)... Normal [facility] Formson 10-04-2023 Forms [id number]#1. 00TIFF Normal [facility] Lab Reportson 10-04-2023 Lab Reports [id number]#1.0 0TIFF [facility] Ambulatory Visit Summaryon 0 10-03-2023 Ambulatory [...] Pharmacy Information [facility]: [address], [place] [id number] [phone] Allergies Cipro (Unknown) Nyquil Cold Medicine (Unknown) [...] for choosing us for your care. Normal [facility] ED Note-Physicianon 08-16-19 ED Note-Physician [id number]#1.0 0TIFF Normal [facility] Urine Cultureon 08-09-2023 Bacteria identified Cx Nom (U) 75,000 colonies/ml mixed bacterial skin contaminants 2 Days PERFORMED BY: [place] [address] PATHOLOGIST RN TRAUMA ISABELA MUÑOZ M.D. Normal [facility] Comment on above: Performed By: #### C UU #### [address] Laboratory - Chemistry and C hemistry - challengeon 08-03-2023 Bilirubin Ql (U) Negative [facility] Glucose (U) [Mass/Vol] Negative [facility] Ketones Ql (U) Negative [facility] pH (U) 5.0 [pH] [facility] Specific gravity (U) [Rel density] 1.[address] [facility] Urobilinogen (U) [Mass/Vol] 0.2 mg/dL [facility] Laboratory - Specimen inform ationon 08-03-2023 Appearance (U) clear [facility] Color (U) yellow [facility] Laboratory - Urinalysison Leukocyte esterase Test strip Ql (U) Negative [facility] Nitrite Ql (U) Negative [facility] Protein Ql (U) + [facility] No Panel Informationon 08-02 Urine Occult Blood + [facility] XR KNEE 4+ VIEWS LEFTon XR KNEE [...] Weight Tips; Status:Complete - Retrospective Authorization; Done: [id number] Some eating tips that can help you lose weight.; Status:Complete - Retrospective Authorization; Done: [id number] SocHx: Current smoker You need to quit smoking.; Status:Complete - Retrospective Authorization; Done: [id number] Tobacco Use Screening; Status:Complete; Done: 22Mgv3798 You need to stop smoking. Though it is not easy, more than half of all adult smokers have quit. We encourage you to write down all the reasons you should quit smoking and set a quit date for yourself. Ask us how we can help. You may also call 0-426-LFUFNema LabsNOW for free resources and assistance.; Status:Complete - Retrospective Authorization; Done: 32Qya1548 Patient Instructions Please bring all medicines, vitamins, [...] negative for complaint. Vitals Vital Signs Recorded: [id number] 09:55AM Heart Rate60, L Radial Noazkapv243, LUE, Sitting Ycuepjcfk48, LUE, Sitting Height5 ft 4 in Maisft061 lb BMI Mzwjizksqg62.2 kg/m2 BSA Calculated2.11 Tobacco Usea) Yes Patient [...] Fall risk assessment c) Not medically indicated -[facility] [address] DO Work Phone: Tobacco use status [facility] a) Yes -[facility] 250 DO Work Phone: Tobacco Screening. Yes [facility] 250 DO Work Phone: Office [...] we can help. You may also call 6-604-CBXH-NOW for free resources and assistance.; Status:Complete - [...] to retrieve her recent Holter monitor from [place] 3. I suggested a trial of a [...] VITALSon 08-11-2022 Adult depression screening assessment No -[facility] 250 DO Work Phone: Tobacco Screening.on 023 Tobacco use status [facility] a) Yes [facility] [facility] 250 DO Work Phone: Tobacco Screening. Yes [facility] 250 DO Work Phone: ECHOCARDIO M/2D COMPLETEon 0 06-27-2022 ECHOCARDIO M/2D COMPLETE Patient: HENRRY MELÉNDEZ Exam Date: 06/27/2022 : 1970 Gender:F Ordering : DR CARRIE TALBOT M.D. Admission #: [id number] Family : Order #: [id number] CLICK HERE TO VIEW EXAM ECHOCARDIOGRAM REPORT [...] M.D. on 06/28/2022 at 19:30 Normal [facility] BNPon 06-10-2022 Natriuretic peptide B (Bld) [Mass/Vol] 384.0 pg/mL Normal <=900.0 [facility] Comment on above: Performed By: #### B DENTAL SECRETARY, BMP, HSTROPN ####[facility] [address] [place], [place] [address]Dr. Alis Saha CBC AUTO DIFFon 06-10-2022 BASO # 0.0 103/ul Normal 0.0-0.1 [facility] Comment on above: Performed By: #### C BC ####[facility] [address] [place], [place] [address]Dr. Alis Saha Basophils/100 WBC (Bld) 0.5 % Normal 0.2-2.0 [facility] Comment on above: Performed By: #### C BC ####[facility] F[address] [place], [place] [address]Dr. Alis Saha EO # 0.1 103/ul Normal 0.0-0.7 [facility] Comment on above: Performed By: #### C BC ####[facility] F[address] [place], [place] [address]Dr. Alis Saha Eosinophils/100 WBC (Bld) 1.6 % Normal 0.9-7.0 [facility] Comment on above: Performed By: #### C BC ####[facility] [address] [place], [place] [address]Dr. Alis Saha Erythrocyte distribution width (RBC) [Ratio] 15.9 % Critically high 11.0-15.0 [facility] Comment on above: Performed By: #### C BC ####[facility] [address] [place] [address]Dr. Kavitatrace Saha Hematocrit (Bld) [Volume fraction] 37.1 % Normal 36.0-48.0 [facility] Comment on above: Performed By: #### C BC ####[facility] [address] [place] [address]Dr. Alis Saha Hemoglobin (Bld) [Mass/Vol] 12.2 g/dL Normal 12.0-16.0 [facility] Comment on above: Performed By: #### C BC ####[facility] [address] [place], [place] [address]Dr. Alis Saha IG # 0.02 10e3/ul Normal 0.00-0.03 [facility] Comment on above: Performed By: #### C BC ####[facility] [address] [place], [place] [address]Dr. Alis Saha IG % 0.2 % Normal 0.0-0.5 [facility] Comment on above: Performed By: #### C BC ####[facility] [address] [place], [place] [address]Dr. Alis Saha LYMPH # 3.2 103/ul Normal 1.2-3.8 [facility] Comment on above: Performed By: #### C BC ####[facility] C[address] [place], [place] [address]Dr. Alis Saha Lymphocytes/100 WBC (Bld) 37.3 % Normal 20.5-60.0 [facility] Comment on above: Performed By: #### C BC ####[facility] [address] [place] [address]Dr. Alis Saha MANUAL DIFF REQ NO Normal [facility] Comment on above: Performed By: #### C BC ####[facility] [address] [place], [place] [address]DrMiranda Saha MCH (RBC) [Entitic mass] 29.8 pg Normal 26.7-34.0 [facility] Comment on above: Performed By: #### C BC ####[facility] [address] [place], [place] [address]Dr. Alis Saha MCHC (RBC) [Mass/Vol] 32.9 g/dL Normal 29.9-35.2 [facility] Comment on above: Performed By: #### C BC ####[facility] [address] [place] [id number]. Kavitatrace Saha MCV (RBC) [Entitic vol] 90.5 fL Normal 81.0-99.0 [facility] Comment on above: Performed By: #### C BC ####[facility] [address] [place] [address]Dr. Alis Saha MONO # 0.4 103/ul Normal 0.3-0.8 [facility] Comment on above: Performed By: #### C BC ####[facility] [address] [address] [place], [place] [address]Dr. Alis Saha Monocytes/100 WBC (Bld) 4.6 % Normal 1.7-12.0 [facility] Comment on above: Performed By: #### C BC ####[facility] N[address] [place], [place] [address]Dr. Alis Saha NEUT # 4.8 103/ul Normal 1.4-6.5 [facility] Comment on above: Performed By: #### C BC ####[facility] Q[address] [place], [place] [address]Dr. Alis Saha Neutrophils/100 WBC (Bld) 55.8 % Normal 43.0-75.0 [facility] Comment on above: Performed By: #### C BC ####[facility] We[address] [place], [place] [address]Dr. Alis Saha Platelet mean volume (Bld) [Entitic vol] 9.9 fL Normal 9.5-13.5 [facility] Comment on above: Performed By: #### C BC ####[facility] Vikofqnw[address] [place], [place] [address]Dr. Alis Saha PLT 265 103/ul Normal 150-450 [facility] Comment on above: Performed By: #### C BC ####[facility] Y[address]isksm[address] [place] [id number] Saha RBC 4.10 106/ul Critically low 4.20-5.40 [facility] Comment on above: Performed By: #### C BC ####[facility] [address] [place], [place] [address]JiMiranda Saha WBC 8.7 103/ul Normal 4.0-11.0 [facility] Comment on above: Performed By: #### C BC ####[facility] [address] [place] [id number] Saha Covid-19 PCR (CVDTBH)on 05-23 SARS-CoV-2 (COVID-19) RNA AMANDA+probe Ql (Unsp spec) Not detected Normal NOT DETECTED [facility] Comment on above: Result Comment: When [...] for this test is supported by the [place] of Health and Human Service's declaration that [...] used). Performed By: #### C VDTBH #### [facility] [address] [place], [place] [address] Dr. Alis Saha PROF CHEM 8 (BAS METB)on Anion gap [Moles/Vol] 11.7 mmol/L Normal [facility] Comment on above: Performed By: #### B DENTAL SECRETARY, BMP, HSTROPN ####[facility] [address] [place] [id number] Saha Calcium [Mass/Vol] 8.8 mg/dL Normal 8.5-10.1 [facility] Comment on above: Performed By: #### B DENTAL SECRETARY, BMP, HSTROPN ####[facility] [address] [place] [address]Dr. Alis Saha Chloride [Moles/Vol] 108 mmol/L Critically high 98-107 [facility] Comment on above: Performed By: #### B DENTAL SECRETARY, BMP, HSTROPN ####[facility] [address] [place] [address]Dr. Alis Saha CO2 [Moles/Vol] 23.7 mmol/L Normal 21.0-32.0 [facility] Comment on above: Performed By: #### B DENTAL SECRETARY, BMP, HSTROPN ####[facility] [address] [place] [address]Dr. Alis Saha Creatinine [Mass/Vol] 0.70 mg/dL Normal 0.55-1.02 [facility] Comment on above: Performed By: #### B DENTAL SECRETARY, BMP, HSTROPN ####[facility] [address] [place] [address]Dr. Alis Saha EGFR-AF JAMAICAN >60 Normal >=60 [facility] Comment on above: Performed By: #### B DENTAL SECRETARY, BMP, HSTROPN ####[facility] [address] [place] [address]Dr. Alis Saha EGFR-NON AF JAMAICAN >60 Normal >=60 [facility] Comment on above: Performed By: #### B DENTAL SECRETARY, BMP, HSTROPN ####[facility] [address]om[address]zy[address] [place] [address]Dr. Alis Saha Glucose [Mass/Vol] 119 mg/dL Critically high 74-106 [facility] Comment on above: Performed By: #### B DENTAL SECRETARY, BMP, HSTROPN ####[facility] [address] [place] [address]Dr. Alis Saha Potassium [Moles/Vol] 3.4 mmol/L Critically low 3.5-5.1 [facility] Comment on above: Performed By: #### B DENTAL SECRETARY, BMP, HSTROPN ####[facility] [address] [place] [id number]. Alis Saha Sodium [Moles/Vol] 140 mmol/L Normal 136-145 [facility] Comment on above: Performed By: #### B DENTAL SECRETARY, BMP, HSTROPN ####[facility] [address] [place] [id number]. Alis Saha Urea nitrogen [Mass/Vol] 14.0 mg/dL Normal 7.0-18.0 [facility] Comment on above: Performed By: #### B DENTAL SECRETARY, BMP, HSTROPN ####[facility] [address] [place] [address]Dr. Alis Saha Urea nitrogen/Creatinine [Mass ratio] 20.0 mg/mg Normal [facility] Comment on above: Performed By: #### B DENTAL SECRETARY, BMP, HSTROPN ####[facility] [address] [place] [address]Dr. Alis Saha TROPONIN, HIGH SENSITIVITYon 06-10-2022 HSTROP 9.9 pg/mL Normal 4.0-51.3 [facility] Comment on above: Result Comment: CUT- OFF POINTS HAVE BEEN ESTABLISHED BASED ON THE FOURTH UNIVERSAL DEFINITIONS OF MYOCARDIAL INFARCTION. THE UPPER REFERENCE LIMIT (URL) OF TROPONIN, DEFINED THE 99TH PERCENTILE OF cTnI DISTRIBUTION IN A REFERENCE POPULATION, HAS BEEN CONFIRMED THE DECISION THRESHOLD FOR OR DIAGNOSIS. Performed By: #### B DENTAL SECRETARY, BMP, HSTROPN ####[facility] [address] [place] [address]Dr. Alis Saha XR CHEST 1 Von 06-10-2022 [...] POPPY GREEN Date: 2022-06-09 23:02 Normal [facility] XR LSPINE MIN 4 VIEWSon 01-20 [...] CARLOS VILLATORO Date: 2022-02-02 07:17 Normal [facility] XR CSPINE 2_3 VIEWSon 2021 XR [...] CARLOS VILLATORO Date: 2021-10-01 07:13 Normal [facility] CBC AUTO DIFFon 09-30-2021 BASO # 0.0 103/ul Normal 0.0-0.1 [facility] Comment on above: Performed By: #### C BC ####[facility] [address] [place], [place] [address]HgMiranda Saha Basophils/100 WBC (Bld) 0.4 % Normal 0.2-2.0 [facility] Comment on above: Performed By: #### C BC ####[facility] [address] [place], [place] [address]Ju. Alis Saha EO # 0.1 103/ul Normal 0.0-0.7 [facility] Comment on above: Performed By: #### C BC ####[facility] [address] [place] [address]Dr. Alis Saha Eosinophils/100 WBC (Bld) 1.6 % Normal 0.9-7.0 [facility] Comment on above: Performed By: #### C BC ####[facility] [address] [place] [address]Dr. Alis Saha Erythrocyte distribution width (RBC) [Ratio] 15.1 % Critically high 11.0-15.0 [facility] Comment on above: Performed By: #### C BC ####[facility] Tcoseavuit[address] [place], [place] [address]Dr. Alis Saha Hematocrit (Bld) [Volume fraction] 41.9 % Normal 36.0-48.0 [facility] Comment on above: Performed By: #### C BC ####[facility] Yxktqwrwle[address] [place], [place] [address]Dr. Alis Saha Hemoglobin (Bld) [Mass/Vol] 13.5 g/dL Normal 12.0-16.0 [facility] Comment on above: Performed By: #### C BC ####[facility] Qkmffwdjxz[address] [place], [place] [address]Dr. Alis Saha IG # 0.01 10e3/ul Normal 0.00-0.03 [facility] Comment on above: Performed By: #### C BC ####[facility] Bbyondmjol[address] [place], [place] [address]Dr. Alis Saha IG % 0.1 % Normal 0.0-0.5 [facility] Comment on above: Performed By: #### C BC ####[facility] Goeirowpah[address] [place], [place] [address]Dr. Alis Saha LYMPH # 2.3 103/ul Normal 1.2-3.8 [facility] Comment on above: Performed By: #### C BC ####[facility] Offbjdunzi[address] [place], [place] [address]Dr. Alis Saha Lymphocytes/100 WBC (Bld) 27.9 % Normal 20.5-60.0 [facility] Comment on above: Performed By: #### C BC ####[facility] Wwz[address]jhlvhm34[address] [place] [id number]. Alis Saha MANUAL DIFF REQ NO Normal [facility] Comment on above: Performed By: #### C BC ####[facility] [address]tyah[address] [place] [id number]. Alis Saha MCH (RBC) [Entitic mass] 28.8 pg Normal 26.7-34.0 [facility] Comment on above: Performed By: #### C BC ####[facility] M[address]vcljxmh9636 [place] [id number]. Alis Saha MCHC (RBC) [Mass/Vol] 32.2 g/dL Normal 29.9-35.2 [facility] Comment on above: Performed By: #### C BC ####[facility] [address] [place], [place] [address]Dr. Alis Saha MCV (RBC) [Entitic vol] 89.3 fL Normal 81.0-99.0 [facility] Comment on above: Performed By: #### C BC ####[facility] [address]wsh[address] [place], [place] [address]Dr. Alis Saha MONO # 0.5 103/ul Normal 0.3-0.8 [facility] Comment on above: Performed By: #### C BC ####[facility] Hfneiurwsn[address] [place], [place] [address]Dr. Alis Saha Monocytes/100 WBC (Bld) 5.6 % Normal 1.7-12.0 [facility] Comment on above: Performed By: #### C BC ####[facility] K[address] [place], [place] [id number]. Alis Saha NEUT # 5.3 103/ul Normal 1.4-6.5 [facility] Comment on above: Performed By: #### C BC ####[facility] Lesrzxrfrv[address] [place], [place] [id number]. Alis Saha Neutrophils/100 WBC (Bld) 64.4 % Normal 43.0-75.0 [facility] Comment on above: Performed By: #### C BC ####[facility] [address] [place] [id number]. Alis Saha Platelet mean volume (Bld) [Entitic vol] 9.5 fL Normal 9.5-13.5 [facility] Comment on above: Performed By: #### C BC ####[facility] [address] [place] [address]Dr. Alis Saha PLT 316 103/ul Normal 150-450 [facility] Comment on above: Performed By: #### C BC ####[facility] [address] [place] [address]Dr. Alis Saha RBC 4.69 106/ul Normal 4.20-5.40 [facility] Comment on above: Performed By: #### C BC ####[facility] [address] [place] [address]Dr. Kavitatrace Saha WBC 8.2 103/ul Normal 4.0-11.0 [facility] Comment on above: Performed By: #### C BC ####[facility] [address] [place] [address]Dr. Alis Yifan GLYCOHEMOGLOBIN A1Con 2021 ADA RECOMMENDATION SEE BELOW Normal [facility] Comment on above: Result Comment: ADA RECOMMENDED LIMIT 4.0 - 6.0 ADA THERAPEUTIC TARGET < 7.0 ACTION SUGGESTED > 7.0 Performed By: #### A 1C ####[facility] [address] [place] [address]Dr. Alis Saha Glucose [Mass/Vol] 128 mg/dL Normal [facility] Comment on above: Performed By: #### A 1C ####[facility] [address] [place] [address]DrMiranda Alis Yifan HbA1c (Bld) [Mass fraction] 6.1 % Normal 4.5-6.2 [facility] Comment on above: Performed By: #### A 1C ####[facility] [address] [place] [address]DrMiranda Saha PROF CHEM 8 (BAS METB)on Anion gap [Moles/Vol] 11.5 mmol/L Normal [facility] Comment on above: Performed By: #### T SH, BMP #### [facility] [address] [place] [address] Dr. Alis Saha Calcium [Mass/Vol] 8.7 mg/dL Normal 8.5-10.1 [facility] Comment on above: Performed By: #### T SH, BMP #### [facility] [address] [place] [address] Dr. Alis Saha Chloride [Moles/Vol] 104 mmol/L Normal 98-107 [facility] Comment on above: Performed By: #### T SANA, BMP #### [facility] [address] [place] [address] Dr. Alis Saha CO2 [Moles/Vol] 25.5 mmol/L Normal 21.0-32.0 [facility] Comment on above: Performed By: #### T SANA, BMP #### [facility] [address] [place] [address] Dr. Alis Saha Creatinine [Mass/Vol] 0.85 mg/dL Normal 0.55-1.02 [facility] Comment on above: Performed By: #### T SANA, BMP #### [facility] [address] [place] [address] Dr. Alis Saha EGFR-AF JAMAICAN >60 Normal >=60 [facility] Comment on above: Performed By: #### T SANA, BMP #### [facility] [address] [place] [address] Dr. Alis Saha EGFR-NON AF JAMAICAN >60 Normal >=60 [facility] Comment on above: Performed By: #### T SANA, BMP #### [facility] [address] [place] [address] Dr. Alis Saha Glucose [Mass/Vol] 101 mg/dL Normal 74-106 [facility] Comment on above: Performed By: #### T SANA, BMP #### [facility] [address] [place] [address] Dr. Alis Saha Potassium [Moles/Vol] 4.0 mmol/L Normal 3.5-5.1 [facility] Comment on above: Performed By: #### T SH, BMP #### [facility] [address] [place] [address] Dr. Alis Saha Sodium [Moles/Vol] 137 mmol/L Normal 136-145 [facility] Comment on above: Performed By: #### T SH, BMP #### [facility] [address] [place] [address] Dr. Alis Saha Urea nitrogen [Mass/Vol] 13.0 mg/dL Normal 7.0-18.0 [facility] Comment on above: Performed By: #### T SH, BMP #### [facility] [address] [place] [address] Dr. Alis Saha Urea nitrogen/Creatinine [Mass ratio] 15.3 mg/mg Normal [facility] Comment on above: Performed By: #### T SH, BMP #### [facility] [address] [place] [address] Dr. Alis Saha TSHon 09-30-2021 TSH 1.548 uIU/mL Normal 0.358-3.740 [facility] Comment on above: Performed By: #### T SH, BMP #### [facility] [address] [place] [address] Dr. Alis Saha TSH RANGE SEE BELOW Normal [facility] Comment on above: Result Comment: <0.3 4 UIU/ml HYPERTHYROID 0.34-5.60 UIU/ml EUTHYROID >5.60 UIU/ml HYPOTHYROID Performed By: #### T SH, BMP #### [facility] [address] [place] [address] Dr. Alis Saha VC CONSULT FOLLOWUPon 2021 VC CONSULT FOLLOWUP Patient: HENRRY MELÉNDEZ Exam Date: 07/19/2021 : 1970 Gender:F Ordering : DR JUA NCARLOS VILLATORO M.D. Admission #: [id number] Family : Order #: [id number] CLICK HERE TO VIEW EXAM RADIOLOGY REPORT [...] Villatoro MD on 07/19/2021 at 15:16 Normal [facility] VC EXT VENOUS RT LIMITEDon 0 07-19-2021 VC EXT VENOUS RT LIMITED Patient: HENRRY MELÉNDEZ Exam Date: 07/19/2021 : 1970 Gender:F Ordering : DR JUAN CARLOS VILLATORO M.D. Admission #: [id number] Family : Order #: [id number] CLICK HERE TO VIEW EXAM RADIOLOGY REPORT [...] to distal calf. Heat induced thrombus in tariff publishing agent distal calf 1.4 mm from PTV and [...] vein with occlusion of 2 associated incompetent tariff publishing agent veins No deep vein thrombus Dictated by: Juan Carlos Villatoro MD on 07/19/2021 at 14:36 Approved by: Juan Carlos Villatoro MD on 07/19/2021 at 14:37 Normal [facility] VC ENDOVENOUS ABL 1ST V RTon 07-14-2021 VC ENDOVENOUS ABL 1ST V RT Patient: HENRRY MELÉNDEZ Exam Date: 07/14/2021 : 1970 Gender:F Ordering : DR JUAN CARLOS VILLATORO M.D. Admission #: [id number] Family : Order #: [id number] CLICK HERE TO VIEW EXAM RADIOLOGY REPORT [...] the right great saphenous vein. Dictated by: Vladimir Palacios M.D. on 07/14/2021 at 14:47 Approved by: Vladimir Palacios M.D. on 07/14/2021 at 14:50 Normal [facility] Vital Signs Date Time Vital Sign Value Performing Clinician Facility 02-14-2024 15:42-0400 Blood Pressure Location Mikhail VENEGAS [facility] 02-14-2024 15:42-0400 Diastolic blood pressure 78 mm[Hg] Mikhail VENEGAS [facility] 02-14-2024 15:42-0400 Heart rate 76 /min Mikhail VENEGAS [facility] 02-14-2024 15:42-0400 Respiratory rate 16 /min Mikhail JEFFERSONNeto [facility] 02-14-2024 15:42-0400 Systolic blood pressure 118 mm[Hg] Mikhail JEFFERSONNeto [facility] 01-18-2024 11:13-0400 Body height 163.83 cm [facility] 01-18-2024 11:13-0400 Body mass index (BMI) [Ratio] 42 kg/m2 [facility] 01-18-2024 11:130400 Body weight 112.94 kg [facility] 01-18-2024 11:13-0400 Diastolic blood pressure 80 mm[Hg] [facility] 01-18-2024 11:13-0400 Heart rate 65 /min [facility] 01-18-2024 11:13-0400 Systolic blood pressure 146 mm[Hg] [facility] 11-03-2023 10:24-0400 Diastolic blood pressure 87 mm[Hg] Bonny Meyer MD Work Phone: [facility] 11-03-2023 10:24-0400 Systolic blood pressure 132 mm[Hg] Bonny Meyer MD Work Phone: [facility] 11-03-2023 10:04-0400 Body height 162.6 cm Bonny Meyer MD Work Phone: [facility] 11-03-2023 10:04-0400 Body mass index (BMI) [Ratio] 43.43 kg/m2 Bonny Meyer MD Work Phone: [facility] 11-03-2023 10:04-0400 Body weight 114.76 kg Bonny Meyer MD Work Phone: [facility] 11-03-2023 10:04-0400 Heart rate 68 /min Bonny Meyer MD Work Phone: [facility] 10-03-2023 09:53-0400 Diastolic blood pressure 106 mm[Hg] Zulema Orzech [facility] 10-03-2023 09:53-0400 Heart rate 73 /min Zulema Orzech [facility] 10-03-2023 09:53-0400 Respiratory rate 19 /min Zulema Orzech [facility] 10-03-2023 09:53-0400 Systolic blood pressure 146 mm[Hg] Zulema Orzech [facility] 08-09-2023 11:52-0400 Body height 163.83 cm [facility] 08-09-2023 11:52-0400 Body mass index (BMI) [Ratio] 41.8 kg/m2 [facility] 08-09-2023 11:52-0400 Body temperature 96.8 [degF] [facility] 08-09-2023 11:52-0400 Body weight 112.09 kg [facility] 08-09-2023 11:52-0400 Diastolic blood pressure 81 mm[Hg] [facility] 08-09-2023 11:52-0400 Heart rate 80 /min [facility] 08-09-2023 11:52-0400 Systolic blood pressure 114 mm[Hg] [facility] 05-31-2023 10:15-0500 Body height 163.83 cm Carrie Talbot Other [facility] 05-31-2023 10:15-0500 Body mass index (BMI) [Ratio] 42.89 kg/m2 Carrie Talbot Other [employer] Other 05-31-2023 10:15-0500 Body weight 115.12 kg Carrie Talbot Other [facility] 05-31-2023 10:15-0500 Diastolic blood pressure 83 mm[Hg] Carrie Talbot Other [facility] 05-31-2023 10:15-0500 Systolic blood pressure 124 mm[Hg] Carrie Talbot Other [facility] 04-20-2023 11:15-0500 Body height 163.83 cm Carrie Talbot Other [facility] [employer] Other 04-20-2023 11:15-0500 Body mass index (BMI) [Ratio] 42.58 kg/m2 Carrie Talbot Other [place] [employer] Other 04-20-2023 11:15-0500 Body weight 114.31 kg Carrie Talbot Other [employer] Other 04-20-2023 11:15-0500 Diastolic blood pressure 88 mm[Hg] Carrie Talbot Other [employer] Other 04-20-2023 11:15-0500 Systolic blood pressure 138 mm[Hg] Carrie Talbot Other [employer] Other 02-21-2023 11:15-0400 Body height 163.83 cm Carrie Talbot Other [employer] Other 02-21-2023 11:15-0400 Body mass index (BMI) [Ratio] 41.91 kg/m2 Carrie Talbot Other [employer] Other 02-21-2023 11:15-0400 Body weight 112.49 kg Carrie Talbot Other [employer] Other 02-21-2023 11:15-0400 Diastolic blood pressure 86 mm[Hg] Carrie Talbot Other [employer] Other 02-21-2023 11:15-0400 Systolic blood pressure 130 mm[Hg] Carrie Talbot Other [facility] [employer] Other 12-02-2022 09:55-0400 Body height 162.56 cm Carrie Talbot Work Phone: [facility] 250 DO Work Phone: 12-02-2022 09:55-0400 Body mass index (BMI) [Ratio] 41.2 kg/m2 Carrie Talbot Work Phone: [facility] 250 DO Work Phone: 12-02-2022 09:55-0400 Body surface area Derived from formula 2.11 m2 Carrie Talbot Work Phone: [facility] 250 DO Work Phone: 12-02-2022 09:55-0400 Body weight 108.86 kg Carrie Talbot Work Phone: [facility] 250 DO Work Phone: 12-02-2022 09:55-0400 Diastolic blood pressure 62 mm[Hg] Carrie Talbot Work Phone: [facility] 250 DO Work Phone: 12-02-2022 09:55-0400 Heart rate 60 /min Carrie Talbot Work Phone: [facility] 250 DO Work Phone: 12-02-2022 09:55-0400 Systolic blood pressure 118 mm[Hg] Carrie Talbot Work Phone: [facility] 250 DO Work Phone: 08-11-2022 13:37-0400 Diastolic blood pressure 86 mm[Hg] Carrie Talbot Work Phone: [facility] 250 DO Work Phone: 08-11-2022 13:37-0400 Systolic blood pressure 137 mm[Hg] Carrie Talbot Work Phone: [facility] 250 DO Work Phone: 08-11-2022 13:26-0400 Heart rate 62 /min Carrie Talbot Work Phone: [facility] 250 DO Work Phone: 08-11-2022 13:24-0400 Diastolic blood pressure 88 mm[Hg] Carrie Talbot Work Phone: [facility] 250 DO Work Phone: 08-11-2022 13:24-0400 Systolic blood pressure 132 mm[Hg] Carrie Talbot Work Phone: [facility] 250 DO Work Phone: 08-11-2022 13:23-0400 Body height 162.56 cm Carrie Talbot Work Phone: [facility] 250 DO Work Phone: 08-11-2022 13:23-0400 Body mass index (BMI) [Ratio] 40.85 kg/m2 Carrie Talbot Work Phone: [facility] 250 DO Work Phone: 08-11-2022 13:23-0400 Body surface area Derived from formula 2.11 m2 Carrie Talbot Work Phone: [facility] 250 DO Work Phone: 08-11-2022 13:23-0400 Body weight 107.96 kg Carrie Talbot Work Phone: [facility] 250 DO Work Phone: 08-11-2022 13:23-0400 Diastolic blood pressure 90 mm[Hg] Carrie Talbot Work Phone: [facility] 250 DO Work Phone: 08-11-2022 13:23-0400 Systolic blood pressure 140 mm[Hg] Carrie Johnson Ronaldo Work Phone: [facility] 250 DO Work Phone: Encounters Encounter Date Encounter Type Care Provider Facility Start: 02-14-2024 ambulatory Mikhail Rodney RUBI Facility : [place] Start: 02-14-2024 End: 02-14-2024 [facility] Start: 02-05-2024 End: 02-05-2024 ambulatory KATE DOREEN Not Available Start: 01-30-2024 End: 01-30-2024 ambulatory Zulema X Orzech Facility:[facility] Start: 01-30-2024 End: 01-30-2024 Patient encounter procedure Zulema X Orzech [facility] [place] Start: 01-19-2024 ambulatory Zulema Orzech Facility: [place] Start: 01-18-2024 End: 01-18-2024 ambulatory [facility] Work Phone: Start: 01-18-2024 End: 01-18-2024 Patient encounter procedure [facility] Work Phone: Start: 01-09-2024 End: 01-09-2024 ambulatory Zulema X Orzech Facility:[facility] [place] Start: 01-09-2024 End: 01-09-2024 Patient encounter procedure Zulema X Orzech [facility] Start: 01-08-2024 End: 01-08-2024 ambulatory KATE DOREEN Not Available Start: 12-06-2023 End: 12-06-2023 ambulatory KATE DOREEN Not Available Start: 11-07-2023 End: 11-07-2023 ambulatory Gemma Blanco Facility:[facility] Start: 11-07-2023 End: 11-07-2023 Patient encounter procedure Gemma Blanco [facility] Start: 11-03-2023 End: 11-03-2023 ambulatory [facility] Start: 11-03-2023 End: 11-03-2023 Office outpatient visit 25 minutes Bonny Meyer MD Work Phone: [facility] Comment on above: Palpitations (Primar y Dx); Essential hypertension; Shortness of breath; BMI 40.0-44.9, adult (Multi); Current smoker Start: 10-03-2023 End: 10-03-2023 ambulatory Zulema X Orabhinavch Facility:[facility] Start: 10-03-2023 End: 10-03-2023 Patient encounter procedure Zulema X Orabhinavch [facility] Start: 08-10-2023 ambulatory Zulema Orpearl Facility: [facility] Start: 08-09-2023 End: 08-09-2023 Departed Referred MD Carrie Talbot Work Phone: [facility] [place] Work Phone: Start: 08-09-2023 End: 08-09-2023 ambulatory Carrie Talbot [facility] Work Phone: Start: 08-09-2023 End: 08-09-2023 Patient encounter procedure [facility] Work Phone: Start: 08-03-2023 End: 08-03-2023 ambulatory [facility] Work Phone: Start: 08-03-2023 End: 08-03-2023 Patient encounter procedure [facility] Work Phone: Start: 05-31-2023 End: 05-31-2023 ambulatory Carrie Talbot Other [facility] Other Start: 05-31-2023 Office outpatient vi sit 15 minutes Carrie Talbot [facility] Start: 05-31-2023 End: 05-31-2023 Patient encounter procedure [facility] Work Phone: Start: 05-25-2023 End: 05-25-2023 ambulatory ZOLTAN HENDERSON Not Available Start: 04-24-2023 End: 04-24-2023 ambulatory Carrie Talbot Other [facility] Other Start: 04-24-2023 Telephone encounter Carrie Talbot [facility] Start: 04-20-2023 End: 04-20-2023 ambulatory Carrie Talbot Other [facility] Other Start: 04-20-2023 Office outpatient vi sit 15 minutes Carrie Talbot [facility] Start: 03-28-2023 (Televisit) Televisit Carrie Gong [facility] Start: 03-28-2023 End: 03-28-2023 ambulatory Carrie Talbot Other [facility] Other Start: 02-21-2023 End: 02-21-2023 ambulatory Carrie Talbot Other [facility] Other Start: 02-21-2023 Office outpatient vi sit 25 minutes Carrie Talbot [facility] Start: 12-02-2022 ambulatory MD CARRIE TALBOT Facility: Start: 12-02-2022 Office outpatient vi sit 15 minutes Carrie Talbot Work Phone: [facility] 250 DO Work Phone: Start: 08-18-2022 End: 08-18-2022 ambulatory Carrie Talbot Other [facility] Other Start: 08-18-2022 Telephone encounter Carrie Talbot [facility] Start: 08-11-[address] Bonny Meyer Facility: Start: 08-11-2022 Office consultation new/estab patient 60 min Carrie Talbot Work Phone: [facility] 250 DO Work Phone: Start: 08-05-2022 End: 08-05-2022 ambulatory Carrie Talbot Other [facility] Other Start: 08-05-2022 Nursing evaluation o f patient and report Carrie Talbot [facility] Start: 07-04-2022 End: 07-04-2022 ambulatory Carrie Talbot Other [facility] Other Start: 07-04-2022 Telephone encounter Carrie Talbot [facility] Start: 06-27-2022 End: 06-28-[address] CARRIE TALBOT Facility:[facility]1 Start: 06-22-2022 End: 06-22-2022 ambulatory Carrie Talbot Other [facility] Other Start: 06-22-2022 Telephone encounter Carrie Talbot [facility] Start: 06-14-2022 End: 06-14-2022 ambulatory Carrie Talbot Other [facility] Other Start: 06-14-2022 Telephone encounter Carrie Talbot [facility] Start: 06-12-2022 End: 06-12-2022 ambulatory ELY [...] procedure 10/28/2024 10:10 AM EDT Office Visit [facility] [address] [address] [place] [address] Bonny Meyer MD [address] [address] [place] [address] [facility] Start: 01-21-2024 Influenza vaccination Influenza Vaccine (Season Ended) [facility] Start: 01-18-2024 Patient referral [facility] Work Phone: Start: 08-09-2023 Bacteria identified in Urine by Culture [facility] Start: 08-09-2023 Patient referral [facility] Work Phone: Start: 01-20-2023 COVID-19 Vaccine ( season) COVID-19 Vaccine ( season) [facility] Start: 12-02-2022 FUV, Provider: Bonny Meyer, Status: Pen, Time: 9:40 AM FUV, Provider: Bonny Meyer, Status: Pen, Time: 9:40 AM -[facility] 250 DO Work Phone: Start: 2022 Zoster Vaccines (1 of 2) Zoster Vaccines (1 of 2) [facility] Start: 2012 Screening for malignant neoplasm of breast Mammogram [facility] Start: 1994 DTaP/Tdap/Td Vaccines (1 - Tdap) DTaP/Tdap/Td Vaccines (1 - Tdap) [facility] Start: 1993 Screening for malignant neoplasm of cervix [facility] Start: 1991 Hepatitis B Vaccines (1 of 3 - 19+ 3-dose series) Hepatitis B Vaccines (1 of 3 - 19+ 3-dose series) [facility] Start: 1990 Diabetes mellitus screening Diabetes Screening [facility] Start: 1990 Hepatitis C screening Hepatitis C Screening [facility] Start: 1978 Pneumococcal Vaccine: Pediatrics (0 to 5 Years) and At-Risk Patients (6 to 64 Years) (1 of 2 - PCV) Pneumococcal Vaccine: Pediatrics (0 to 5 Years) and At-Risk Patients (6 to 64 Years) (1 of 2 - PCV) [facility] Start: 1973 MMR Vaccines (1 of 1 - Standard series) MMR Vaccines (1 of 1 - Standard series) [facility] Start: 1972 HIV screening HIV Screening [facility] Start: 1972 Lipid panel Lipid Panel [facility] Start: 1972 Screening for malignant neoplasm of colon [facility] Start: 1972 Yearly Adult Physical Yearly Adult Physical [facility] Patient referral [facility] Work Phone: Payers Date Payer Category Payer Unknown 2021 Unknown [id number] 1970 Unknown [id number] 2.16.84 0.1.414983.3.579.2.593 1972 Unknown [id number] 2.16.84 0.1.137768.3.579.2.593 1972 Unknown [id number] 2.16.84 0.1.313676.3.579.2.593 1972 Unknown [id number] 2.16.84 0.1.173549.3.579.2.593 1972 Unknown [id number] 2.16.84 0.1.715471.3.579.2.593 1972 Unknown [id number] 2.16.84 0.1.195879.3.579.2.593 1972 Unknown [id number] 2.16.84 0.1.522214.3.579.2.593 1972 Unknown [id number] 2.16.84 0.1.727106.3.579.2.593 1972 Unknown [id number] 2.16.84 0.1.757393.3.579.2.593 1972 Unknown [id number] 2.16.84 0.1.968205.3.579.2.593 1972 Unknown [id number] 2.16.84 0.1.470774.3.579.2.593 1972 Unknown [id number] 2.16.84 0.1.138652.3.579.2.593 1972 Unknown [id number] 2.16.84 0.1.775568.3.579.2.593 1972 Unknown [id number] 2.16.84 0.1.283369.3.579.2.593 1972 Unknown [id number] 2.16. 840.1.214367.3.579.2.356 1972 Unknown [id number] 2.16. 840.1.052103.3.579.2.356 1972 Unknown [id number] 2.16.8 40.1.589106.3.579.2.1244 1972 Unknown [id number] 2.16.8 40.1.534933.3.579.2.727 1972 Unknown [id number] 2.16.8 40.1.399152.3.579.2.727 1972 Unknown [id number] 2.16.8 40.1.006646.3.579.2.727 1972 Unknown [id number] 2.16.84 0.1.806273.3.579.2.1259 1972 Unknown [id number] 2.16.84 0.1.528022.3.579.2.1259 1972 Unknown [id number] 2.16.84 0.1.864861.3.579.2.1259 1972 Unknown [id number] 2.16.840 .1.741066.3.579.2.1259 1972 Unknown [id number] 2.16.840 .1.511290.3.579.2.1259 1972 Unknown [id number] 2.16.8 40.1.842834.3.579.2.727 1972 Unknown [id number] 2.16.8 40.1.347488.3.579.2.727 1959 Unknown [id number] Social History Date Type Detail Facility Unknown if ever smoked [facility] Other Start: 08-08-2023 Sex Assigned At F [facility] Start: 08-08-2023 Caffeine use Caffeine use -[place] [facility] 250 DO Work Phone: Comment on above: pop all day; 5-10 cigarettes jessi y; Start: 1970 Sex Assigned At Female F [facility] Start: 10-03-2023 End: 01-30-2024 Tobacco smoking status Heavy tobacco smoker (finding) [facility] Start: 11-03-2023 Tobacco smoking stat [facility] Smokes tobacco daily [facility] Work Phone: History of tobacco use Cigarette Smoker [facility] Work Phone: Start: 11-03-2023 Tobacco use and exposure User of smokeless tobacco [facility] Work Phone: Start: 11-03-2023 Alcoholic beverage intake Lifetime non-drinker (finding) [facility] Work Phone: Start: 11-03-2023 Tobacco Comment vape [facility] Work Phone: Start: 1970 Sex assigned at Not on file [facility] Work Phone: Start: 10-24-2023 End: 11-03-2023 Exposure to SARS-CoV-2 (event) Not sure [facility] Start: 02-14-2024 Tobacco smoking status Light t obacco smoker (finding) [facility] Functional Status Date Assessment Result Facility 02-14-2024 Functional Status N/A [facility] 10-03-2023 Functional Status N/A [facility] Clinical Notes 09-30-2021 to 01-30-2024 Note Date [...] hormones. Follow these instructions at home: Take gaiz-cqe-uwblcqg and prescription medicines only as told by [...] produce hormones and may cause symptoms of Hoffman's syndrome or primary aldosteronism, depending on the [...] provider. Document Revised: 01/05/2021 Document Reviewed: 01/05/2021 [employer] Patient Education 2023 [employer] 01/30/2024 10:50:38 Steps to Quit Smoking [...] require a prescription. You can also purchase ypgn-sgc-iidigrl medicines. Medicines may have nicotine in them [...] and encouragement. Call telephone quitlines, such as 4-480-PMHH-NOW, reach out to support groups, or work [...] provider. Document Revised: 04/29/2022 Document Reviewed: 04/29/2022 [employer] Patient Education 2023 [employer] 01/30/2024 10:50:36 Overactive Bladder, Adult Overactive [...] your health care provider. General instructions Take plkv-tqo-nihwhuf and prescription medicines only as told by [...] provider. Document Revised: 01/25/2021 Document Reviewed: 01/25/2021 [employer] Patient Education 2023 [employer]. 01/30/2024 10:50:34 Hematuria, Adult Hematuria, Adult Hematuria [...] Follow these instructions at home: Medicines Take nthv-ztd-vpcsxwg and prescription medicines only as told by [...] or the blood stops without treatment. Take marp-wdy-abibxvw and prescription medicines only as told by your health care provider. Drink enough fluid to keep your urine pale yellow. This information is not intended to replace advice given to you by your health care provider. Make sure you discuss any questions you have with your health care provider. Document Revised: 01/06/2021 Document Reviewed: 01/06/2021 [employer] Patient Education 2023 [employer]. 01/30/2024 10:50:34 Dietary Guidelines to Help Prevent [...] include: ?8 oz (237 mL) of milk, kqoyowb-rcolpvexhqre-wvewi milk, and calcium-fortifiedfruit juice. Calcium-fortified means that [...] ?Spinach (cooked), rhubarb, beets, sweet potatoes, and Mauritian chard. ?Peanuts. ?Potato chips, guatemalan fries, and baked potatoes with skin on. ?Nuts and nut products. ?Chocolate. If you regularly take a diuretic medicine, make sure to eat at least 1 or 2 servings of fruits or vegetables that are high in potassium each day. These include: ?Avocado. ?Banana. ?Bowie, prune, carrot, or tomato juice. ?Baked potato. [...] magnesium, fish oil, or vitamin B6. Take jpdn-fof-fkbfrfv and prescription medicines only as told by [...] Casseroles. Pizza. Lasagna. Frozen meals. Potato chips. Peruvian fries. The items listed above may not [...] Document Reviewed: 08/18/2022 [employer] Patient Education 2023 [employer]. Follow Up Care 01/08/2024 16:41:10 With:JOHNNA Joya APRN, GYPSY Rodriguez, URL Address: When: Unknown Comments:3-4 mos [facility] 01-30-2024 Note Patient Education Nephrology Dietary Guidelines [...] ? 8 oz (237 mL) of milk, ywciahi-xuwgoltwirxv-ofuxi milk, and calcium-fortifiedfruit juice. Calcium-fortified means that [...] Spinach (cooked), rhubarb, beets, sweet potatoes, and Mauritian chard. ? Peanuts. ? Potato chips, guatemalan fries, and baked potatoes with skin on. ? Nuts and nut products. ? Chocolate. ? If you regularly take a diuretic medicine, make sure to eat at least 1 or 2 servings of fruits or vegetables that are high in potassium each day. These include: ? Avocado. ? Banana. ? Bowie, prune, carrot, or tomato juice. ? Baked [...] fish oil, or vitamin B6. ? Take hnmn-knj-mvhelfv and prescription medicines only as told by your health care provider. These include suppleme (more content not included)... [facility] 11-07-2023 Evaluation + Plan note Extrac galileo from: Title:[facility] Note Author:Francis HERNANDEZ, Gemma Lee . Date:11/07/23 Impression and Plan Assessment and Plan: Diagnosis: Adrenal adenoma (VMK23-EO D35.00, Working, Medical), Gross hematuria (QBW52-FB R31.0, Discharge, Medical), OAB (overactive bladder) (BZB78-ZS N32.81, Discharge, Medical), TEAGAN (stress urinary incontinence, female) (ZVW06-FZ N39.3, Working, Medical). 53 year old female [...] AM Scheduled Provider:JOHNNA Joya APRN, [place] X Location:[facility] Appointment Type:URO Office Visit Diagnostic Tests Pending * Urine Cytology ([facility]) 11/07/23 [facility]06-[facility]2024 Hospital Discharge instructions Patient Education 11/07/2023 [...] with PVR With:Gemma Lue Address:Unknown When: Unknown [facility]06-18-2024 Note [id number] 11-07-2023 NoteCystoscopy ? Voiding after the [...] if you have a fever over 100 degrees.[facility] 11-03-2023 Instructions* Patient Instructions* Sharda Fontaine [...] time of your visit. documented in this [facility] Work Phone: [phone] 262-502405-17-2024 NoteChief Complaint referral HPI Staff Referral for dysuria, left flank pain and hematuria by Dr. Talbot. Pt was seen in [facility] ED 08/11/23 for urinary frequency and low [...] with voice recognition artificial intelligence software, specifically [employer], [employer] and or [employer]. Substitutions may have occurred due to the [...] work, dexamethasone testing. 3. Dysuria (R30.0: Dysuria) [facility] ER 08/11/2023-urinary frequency, low back pain x [...] fluid intake so jah (more content not included)...[facility]:Result Comment: Electronically Signed By: JOHNNA Joya APRN, Zulema Lema\.br\Date and Time Signed: 10/06/23 12:54 [id number] Evaluation + Plan note Diagnostic Tests Pending * Cortisol 10/03/23 * Lab Miscellaneous-LC 10/03/23 * Lab Miscellaneous-LC 10/03/23 [facility] 01-10-2024 Evaluation note* Encounter Date Diagnosis Assessment Notes Treatment Notes Treatment Clinical Notes May, Pain, joint, knee, left (ICD-10 - M25.562) Pt declines PT at this time. Will attempt MRI. She declines Ortho referral at this time as well. MRI order sent to [facility]. work note given for restrictions as she is unable to climb a lot of stairs due to pain. May, Uncontrolled hypertension (ICD-10 - I10) Reviewed labs w pt. No hypokalemia or other electrolyte abnormalities noted in Apr. [facility] Other 12-04-2023 Evaluation note* Encounter Date Diagnosis Assessment Notes Treatment Notes Treatment Clinical Notes Apr, Essential hypertension (ICD-10 - I10) [facility] Other 11-30-2023 Evaluation note* Encounter Date Diagnosis Assessment Notes Treatment Notes Treatment Clinical Notes Mar, Radicular syndrome of left leg (ICD-10 - M54.10) Agrees to imaging to r/o DDD or lumbar fracture. Mar, Leg pain, left (ICD-10 - M79.605) Discussed concern for DVT. US scheduled for today. [facility] Other 11-07-2023 Evaluation note* Encounter Date Diagnosis [...] verbalized understanding and agreement with treatment plan. [facility] Other 10-03-2023 Evaluation note* Encounter Date Diagnosis [...] Advised she limit NSAIDs and added omeprazole [facility] Other 03-30-2023 Evaluation note* Encounter Date Diagnosis Assessment Notes Treatment Notes Treatment Clinical Notes Jul, Uncontrolled hypertension (ICD-10 - I10) [facility] Other 03-17-2023 Evaluation note* Encounter Date Diagnosis Assessment Notes Treatment Notes Treatment Clinical Notes Jul, Dysuria (ICD-10 - R30.0) [facility] Other 12-16-2022 NotePROCEDURE: XR ANKLE LT MIN [...] Electronically authenticated by: VLADIMIR PALACIOS Date: 2022-05-06 07:13[facility]12-16-2022 NotePROCEDURE: XR ANKLE LT MIN 3 [...] degenerative joint disease. Electronically authenticated by: VLADIMIR APLACIOS Date: 2022-05-06 07:13[facility]05-12-2022 NotePROCEDURE: XR ELBOW LT MIN 3 VIEWS HISTORY: Pain of left elbow joint , acute; limited range of motion COMPARISON: None. FINDINGS: BONES:No fracture, acute abnormality, or significant arthropathy. SOFT TISSUES:No visible soft tissue swelling. EFFUSION:None visible. OTHER: Negative. IMPRESSION: 1. Normal examination. Electronically authenticated by: VLADIMIR PALACIOS Date: 2021-09-30 16:50[facility] Narrative - ReportedHENRRY MELÉNDEZ is being seen for a consultation for blood pressure issues.[facility] 250 DO Work Phone: Evaluation + Plan note Future Appointments Appointment Date:01/30/2024 09:30:00 AM Scheduled Provider:JOHNNA Joya APRN, [place] [facility] Location:[facility] Appointment Type:URO Office Visit [facility] evaluation + Plan note Future Appointments Appointment Date:02/14/2024 03:40:00 PM Scheduled Provider:Mikhail VENEGAS MD Location:[facility] Appointment Type:[place] [id number] [facility] evaluation noteNo InformationNort Myreks Other Evaluation noteNo assessment information available [facility] Work Phone: Evaluation note* Diagnosis Onset Date Resolution Status Dysuria acute Hematuria acute Left flank pain acute [facility] Work Phone: Evaluation note* Diagnosis Palpitations- Primary Essential hypertension Unspecified essential hypertension Shortness of breath BMI 40.0-44.9, adult (Multi) Current smoker documented in this encounter [facility] Work Phone: Evaluation note* Diagnosis Onset Date Resolution Status Rectal bleeding acute [facility] Work Phone: History general Narrative - [...] LYSIS OF ADHESIONS 09/2015 Hospitalization History SEE [employer] Other History of Present illness Narrative* Patient [...] to retrieve her recent Holter monitor from [place] * 3. I suggested a trial of [...] diet * 6. Follow-up in [address] [facility] 250 DO Work Phone: History of Present [...] diet * 5. Follow-up in [address] [facility] 250 DO Work Phone: Hospital course Narrative No data available for this section [facility] Hospital Discharge instructionsAmbulatory Orders* Referral to Urology Time Frame: 08/09/23, Location: [facility] Work Phone: Hospital Discharge instructions No data available for this section [facility] Hospital Discharge instructionsAmbulatory Orders* Referral to General Surgery Time Frame: 01/18/24, Location: None Selected [facility] Work Phone: Progress note No data available for this section [facility] reason for referral (narrative)* Consultation (Routine) - Authorized Specialty Diagnoses / Procedures Referred By Contac t Referred To Contact Cardiology Diagnoses Essential hypertension Procedures Follow Up In Cardiology Bonny Meyer MD [address] [place] [address] [address], [address] [address] Bonny Meyer MD [address] [place] [address] [address] [address] Referral ID Status Reason Start Date Expiration Date V isits Requested Visits Authorized [id number] Authorized 11/03/2023 11/02/2024 1 1 [facility] Work Phone: Summary Purpose Family [...] ure of right hand (M72.0) Referral Organization [facility] Referring Provider First Name Carrie Referring Provider Last Name Ronaldo Referring Provider Specialty [facility] Referred Organization [facility] Referred Provider Deisi Branch Referred Address [address] [place],[address] Referred Provider Specialty Orthopedic S urgery Referral [...] section and content) DATE CREATED AUTHOR 06/30/2022 [facility] DATE CREATED AUTHOR AUTHOR'S ORGANIZ ATION 12/03/[address] [facility] ical [facility] DATE CREATED AUTHOR AUTHOR'S ORGANIZ ATION 12/03/2022 [facility] DATE CREATED AUTHOR AUTHOR'S ORGANIZ ATION 08/12/2023 [facility] DATE CREATED AUTHOR AUTHOR'S ORGANIZ ATION 11/04/2023 [facility] DATE CREATED AUTHOR AUTHOR'S ORGANIZ ATION 01/31/2024 [facility] DATE CREATED AUTHOR AUTHOR'S ORGANIZ ATION 02/06/2024 [facility] dical Specialists EPIC DATE CREATED AUTHOR AUTHOR'S ORGANIZ ATION 02/13/2024 [facility] REASON FOR VISIT (unrecogniz ed section and content) Reason Comments Follow-up overdue Care Teams (unrecognized sec tion and content) Personnel Name: CARRIE TALBOT MD Address: Address: [facility] Team Status: Active Member Role Status [...] August 09, 2023 End: August 09, 2023 Digester Relationship Specialty Start Date End Date Carrie Talbot MD [address] [place] [address] PCP - General 08/11/22 Team Status: Inactive [...] BE BASED ON THE PRIMARY CLINICAL RECORDS. [employer] provides no warranty or guarantee of the accuracy or completeness of information in this document.
[2024-03-08 12:10] LABS: Age Gdln ACOG Testing Note (.); HPV Aptima Negative (Negative); IGP, Aptima HPV, rfx 16/18,45 Note (.)
== END 2024-03-04 20:03 | disposition home or self-care (01) ==
LOC: LAB 20:02
PROVIDERS: PCP Family Medicine; Visit Provider Obstetrics & Gynecology
DX: Z01.419 Encounter for gynecological examination (general) (routine) without abnormal findings (principal)
CPT/HCPCS: 87624; 88175

== ENCOUNTER 2024-03-08 11:11 | Outpatient (OUT) | payer OTHER, SELFPAY ==
--- NOTE | 2024-03-08 11:14 | ECG_ITS ---
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
--- OUTSIDE RECORDS SUMMARY | 2024-03-08 11:15 | XMS_ITS | CCD ---
Author Organization [facility] Care Team Providers Care Ship Scaler Name Role Phone SHAUNA, DR JUAN CARLOS Mayberry Consulting Unavailable TALBOT, DR CARRIE Johnson Primary Care Unavailable TALBOT, DR CARRIE Johnson Attending Unavailable TALBOT, DR CARRIE Johnson Admitting Unavailable ZIJENSEN, DR VLADIMIR Stevens Consulting Unavailable TALBOT, DR [...] JUAN CARLOS Mayberry Admtariq Unavailable ZIEBER, DR VLADIMIR Stevens Consulting Unavailable [...] Attending Unavailable CARRIE TALBOT Primary Care Physician [phone] Carrie Talbot MD Primary Care Provider BONNY MEYER Attending Unavailable CARRIE TALBOT Primary Care Unavailable Orpearl Zulema X Attending Unavailable Orzech Zulema X Attending Unavailable CARRIE TALBOT Referring Unavailable Gemma Blanco Attending Unavailable Gemma Blanco Referring Unavailable Gemma Blanco Admitting Unavailable OrZulema kang X Attending Unavailable Mikhail VENEGAS Attending Unavailable CARRIE TALBOT Referring Unavailable HEMZOLTAN FUENTES Attending Unavailable HEMZOLTAN FUENTES Referring Unavailable NIECY NAVARRETEY Attending Unavailable NIECY NAVARRETEY Attending Unavailable NIECY NAVARRETEY Attending Unavailable NANDO NAVARRETE Attending Unavailable Carrie Talbot MD Primary Care Provider [phone] Allergies Allergy Classification Reported Allergen(s) Allergy Type Date of Onset Reaction(s) Facility Cephalosporins (antibiotic) (1 source) cefdinir Drug Allergy 08-08-19 24 Unknown [facility] Opioid Agonists (1 source) Codeine Drug Allergy 05-25-19 24 Hives, Unknown [facility] Work Phone: Quinolones (antibiotic) (1 source) Ciprofloxacin Drug Allergy 11-03-19 Other [facility] (8 sources) Cefuroxime Drug Allergy 05-25-19 Unknown [facility] (20 sources) Codeine; Translations: [CODEINE] Drug Allergy 05-25-19 Weal (disorder), Unknown, [facility] (8 sources) Pseudoephedrine Drug Allergy 05-25-19 24 Unknown [facility] Other (2 sources) cefdinir; Translations: [cefdinir] Drug Allergy 08-08-19 Other [facility] Repository (6 sources) Ceftin *CEPHALOSPORINS* Propensity to adverse reactions 02-12-20 13 Unknown [facility] Other (6 sources) Pseudoephedrine HCl *NASAL AGENTS - SYSTEMIC AND T Propensity to adverse reactions 02-12-20 13 Unknown [facility] Other (4 sources) Cephalosporins (Antibiotic) Allergy to substance 05-31-19 24 [facility] (4 sources) Pseudoephedrine HCl *NASAL AGE Allergy to substance 05-31-19 [facility] (7 sources) Acetaminophen / Dextromethorphan / Doxylamine / Pseudoephedrine; Translations: [APAP/dextromethorp dwyer/doxylamine/PSE] Drug Allergy Unknown (qualifier value) [facility] (11 sources) Ciprofloxacin; Translations: [ciprofloxacin] Drug Allergy 11-03-19 Unknown (qualifier value), Weal (disorder), Unknown [facility] (2 sources) Acetaminophen; Translations: [acetaminophen] Drug Allergy [facility] Repository (3 sources) cefdinir Drug Allergy 08-08-19 Unknown [facility] Healthcare Medications Current Medications Medication Drug Class(es) Dates [...] aspirin 81 mg delayed release oral tablet (10 sources) Platelet Aggregation Inhibitor, Nonsteroidal Anti-inflammatory Drug End: 03-04-2024 aspirin 81 MG EC tablet Take 325 mg by mouth in the morning. 03/04/2024 Discontinued take 1 tablet by aida th every twenty-four hours Aspirin 81 81 MG 1 tablet Orally Once a day Active take 1 tablet by mouth once jessi y Aspirin 81 81 MG 1 tablet Orally Once a day Active azithromycin 250 mg oral tablet (9 sources) Macrolide Antimicrobial Start: 02-05-2024 End: 03-04-2024 azithromycin (Zithromax Z-Caleb) 250 MG tablet Indications: Upper respiratory tract infection, unspecified type As directed 6 tablet 02/05/2024 03/04/2024 Discontinued Start: 03-28-2023 Azithromycin 2 50 MG as directed Orally 2 tabs po today, then 1 tab daily x 4 more days for 5 07 Mar, 2023 Active Start: 06-17-2022 Azithromycin 2 50 MG [...] Status: Ordered famotidine 20 mg oral tablet (9 sources) Histamine-2 Receptor Antagonist Start: 10-03-2023 take 20 mg by mouth once daily before mealtime Pepcid AC 20 mg, Oral, Daily Start Date: 10/03/23 Status: Ordered take 2 tablets by mouth once julio ly famotidine (Pepcid) 10 MG tablet Take 20 mg by mouth Daily Active ferrous sulfate 325 mg oral tablet (5 sources) take 1 tablet by mouth every twenty-four hours meclizine hydrochloride 12.5 mg oral tablet (5 sources) Antiemetic take 1 tablet by mouth every twelve hours methylPREDNISolone 4 mg oral tablet (10 sources) Corticosteroid Start: 2022 24 hr metoprolol succinate 25 mg extended release oral tablet (20 sources) beta-Adrenergic Josefina Start: 2022 take 1 tablet by mouth every twenty-four hours in the morning metoprolol succinate XL (Toprol-XL) 25 MG 24 hr tablet Take 25 mg by mouth in the morning. 05/06/2023 Active Start: 08-11-2022 End: 11-02-2024 take 1 tablet [...] Daily, # 30 tab(s), Refills(s) 11, Pharmacy: [facility], 163, cm, 10/03/23 10:16:00 EDT, Height/Length [...] oral tablet (20 sources) Aldosterone Antagonist Start: 022 End: 025 take 1 tablet by mouth in the morning spironolactone (Aldactone) 25 MG tablet Take 25 mg by mouth in the morning. 03/06/2023 Active tiZANidine 4 mg oral capsule (2 sources) Central alpha-2 Adrenergic Agonist take 1 capsule by mouth once daily at bedtime as needed tiZANidine HCl 4 MG 1 capsule as needed Orally qhs prn for 15 days Active valsartan 40 mg oral tablet (7 sources) Angiotensin 2 Receptor Josefina Start: 024 take 1 tablet by mouth twice daily valsartan 40 mg Tab 40 mg = 1 tab(s), Oral, BID, Refills(s) 0 Start Date: 02/01/24 Status: Ordered Start: 01-18-2024 take 1 tablet by aida th twice daily Valsartan (Diovan) 40 mg tablet Active 40 MG PO Twice daily January 18, 2024 12:00am Start: 11-03-2023 End: 11-02-2024 take 1 tablet by mouth in the morning valsartan (Diovan) 160 MG tablet Take 160 mg by mouth in the morning. 11/03/2023 11/02/2024 Active Completed/Discontinued Medications Medication Drug Class(es) Dates [...] Date Documented Da te Episodic/Chronic Abdominal pain (20 sources) Pain in female pelvis; Translations: [Pelvic and perineal pain] Onset: 4 08-09-2023 Episodic Calculus of urinary tract (4 sources) Kidney stone; Translations: [Calculus of kidney] Onset: 4 Episodic Cardiac dysrhythmias (7 sources) Palpitations; Translations: [Palpitations] Onset: 3 11-03-2023 Episodic Conditions associated with dizziness or vertigo (11 sources) Benign paroxysmal positional vertigo; Translations: [Benign paroxysmal vertigo, bilateral] Episodic Coronary atherosclerosis and other heart disease (16 sources) Coronary arteriosclerosis; Translations: [Atherosclerotic heart disease of [place] coronary artery without angina pectoris] 09-28-2023 Chronic [...] 2 Chronic Other aftercare (1 source) 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; Translations: [OTH JAIL CURRENT DRUG THERAPY] Onset: 3 Episodic Other [...] sources) Lesion of cervix 01-30-2024 Episodic Other female genital disorders (3 sources) Lump of cervix; Translations: [Other specified noninflammatory disorders of cervix uteri] Onset: 4 01-08-2024 Episodic Other female genital disorders (2 sources) Polyp of corpus uteri; Translations: [Polyp of corpus uteri] 03-04-2024 Episodic Other lower respiratory disease (5 sources) [...] gain; Translations: [Abnormal weight gain] Episodic Other screening for suspected conditions (not mental disorders or infectious disease) (2 sources) Patient encounter status; Translations: [Encounter for screening mammogram for malignant neoplasm of breast] 03-04-2024 Episodic Other upper respiratory infections (13 sources) [...] [Obstructive sleep apnea (adult) (pediatric)] 09-28-2023 Chronic Residual codes; unclassified (5 sources) Postmenopausal state; Translations: [Asymptomatic menopausal state] Onset: 4 01-08-2024 Episodic Spondylosis; intervertebral disc disorders; other back problems [...] 01-30-2024 Ambulatory Visit Summary Ambulatory Visit Summary FELY MELÉNDEZ :1970 Visit Date:01/30/2024 Ambulatory Visit Instructions Your Diagnosis OAB (overactive bladder) Gross hematuria Adrenal adenoma Kidney stones Stress incontinence Lesion of cervix Your Care Team Attending Physician - JOHNNA [...] Follow-Up Appointments Monday 3:40 PM EDT With: RUBI HERNANDEZ, Mikhail Stevens Where: [facility] [address], [address], [place] [id number]- Medications What How Much When Why Instructions [...] you for choosing us for your care. [facility] Reminderson 01-30-2024 Reminders Reminders From: Yvette Hilliard To: EU - Administrative; Sent: 01/30/2024 10:26:31 EDT Show up: 03/22/2024 10:26:00 EDT Subject: Ambulatory Reminder Due Date/Time: 05/31/2024 10:26:00 EST Reminder/Recall Patient needs scheduled with AO for a 4M f/u, due back in May of 2024 [facility] Urology Office/Clinic Noteon 01-30-2024 Urology Office/Clinic Note Urology Office/Clinic Note HPI Staff KML pt here for f/u to cysto. Last OV 10/03/23 by AO. Dx: gross hematuria, adrenal mass, dysuria, kidney [...] with voice recognition artificial intelligence software, specifically [employer], [employer] and or Moz. Substitutions may have occurred due to the [...] any recent stone passing. [1] CTU at [facility] 11/01/2023 without abnormality explain patient's hematuria [...] unspecified, uncomplicated) Increased risk of CA Orders: [id number] Measure Post Void residual urine and/or bladder capacity by US- non-imaging Urnls Dip Stick Auto w/o Microscopy POC 19354 Follow-up With When Contact Information JOHNNA Joya APRN, Zulema Lema, FAM, URL Additional Instructions: 3-4 mos Patient [...] tab(s), Oral, (more content not included)... Normal [facility] Comment on above: Result Comment: Elec tronically Signed By: JOHNNA Joya APRN, Zulema Lema\.br\Date and Time Signed: 01/30/24 10:50 EDT Urine Cytology ([facility])on 0 11-12-2023 Microscopic exam Cytology (U) [Interp] Diagnosis Info Invalid Interpretation Code [facility] Comment on above: Result Comment: A:Ur ine,Cystoscopy:Cystoscopy Interpretation - MicroScopic Description - Adequacy - Gross Description Site ID:A color Light Yellow fixative Alcohol Specimen designated Cystoscopy received in alcohol preservative and labeled with the patient?s name, consists of 100ml clear light yellow fluid. Electronically signed by : on: 11/12/2023 10:13:54 Performed By: #### 1 [id number] #### [facility] [address] [place] [id number] Coding Summary.on 11-09-2023 Coding Summary. JVNGMhrb12UJq2qFh+PG hl YWQ+WS4YJHVgB76nhGZyfO 3iJ9BMJCwJBjytOMAZRLhJ QnQwzhQsQH7yyCUkYXEi IC8+YF3sEVYeUpkuzNEvf7 U1cWI7W08cxx0eLRgxvNG8 ZRSyAfDwcxknj5vlkQp1NU cuNmluOyBt KPBnwN06BGX7mK14Ie44hE OiwGByv0nnaIi5SuSsJVXs MSE5xWymOZywc6QkOGJsV7 2igGKan8V0 FWWmtGaqqGFdItCdpHI0eH 6zJJqhrympj8gyulqsUoy9 es30mZHog9S5sZS3Q1Mblj S7MNUlhHDi JhxjdNNJjC1tjvrzj7sxml rkYeFdVVFnVLb3VNq7NWGf zWsgAkDuAH76WRM1CGCuoz YtB3RiJCYo jIjcMmS9c6N8Te5TE9KUHt ihI4LASSAXROsphBO+PC90 od28P1UfBrxmXte7NGGsUU M1zLM0oU1q QQWsHCxzg9U4yJS0X1Kbfa Sodl8gf4vpGKFjKJrnM58v sCXws2V3FOXlcIW4NUGxtR jjQcIveJ39 Oyc+NWHbxUoti1XyYkzye5 tiy7qjpOw8WkaeWHArrzRj kMvbRGG0w2RnSi7eGWRyuK X2xNU8bV9c FcGvRlM3ILibR487RyBwmC BuRwoqW89qX6DekNB+PHRy Byj6LNQleTkvVR2qA6SdDU RpbmctbGVm aCdoJF0tVDMzmgbnFCMglR 3sYYMwW9i4XkEhCnK8LTeu I9XvEGDhqjbhXr64rH7tLa XhLbK4RVmc B0IgckM1ZUPraCVvVKfvRS E2A67tj4C3RZZwDORjYLN0 kKH9yM6jzWrmmquuvPWfxR sgdmVydGlj JVqoCCppV558QRKomEveLs NvZGluZyBEYXRlOiAgMDYv MjAvMjAyNDwvdGQ+PHRkIH R8vWuhFIPq qBZaNTvcTg8nrToyaAhjHF 9lWCRakjewEYFwhU6yZDYl mWUemZzaQD5uBWYvxrpyw9 76SvTkJNE8 HPQeoMFyL7ElcA4pAwDsTM TcSIIaE2LglOIpRLrhR273 IIgjCkA3YVWiolQcL0ChMB FsaWduOiB0 g1B3Mp6Vz8UocgctD7TlcQ EkUgTgCymlYRv2J0LzParz dHI+MH92XXJsHW74BAm9IQ J1fKaeOPux OXPuA6AfwN9eLmMrKZEtTK RkOyc+PHRhYmxlIHdpZHRo RUgfDNAjZiMgkFmkQR5cVg 9yZGVyLWNv uLwbeKYtNnScf1qpFEHoKC hbJW3cpWpkT4GhrOO7YASh u6p9Vw53Y79eQ6IrnKZ+PG UvjYP0qTB3 vV5gLlIyDmO6VEnmJ540Cs YtaHGdPtmfm8hnw2azsSs2 XqR3YOPiwxPcdDtzKQM9t1 HnJh87U63u IHdpZHRoPSIxNSUiIHZhbG vnpf0riN3tOg1+PGNvbCB3 sAN1jK0eLfQcSmT0SWbsV0 49InRvcCIv Siaso9dax3pqqXk6KgWgKC PcbxZrnWycZHU6y3MvTh69 U3TjiKarb1FaNyq6rk99rT Qsw6E6pBX9 F2JcNYWqlnqqgIThoZaiLK 7xVPJgzbrcZCLrvM3sSXDn T1f5YuKtBiJ6QUcyL1Szmm F3PIUkeBRd DVCofWLUsD4wzwmrv4xjtb euZaGoXCZcSCl8DOf6VKFq oAjxCvBtJHZ2TvD0VIH4uJ DljW2lzBmi sshofJ9hGhv+SNP0qCGdoX SUIX6lWpsyyNX+PHRkIHN0 mYhlJMhfFBEirZ4tSBOzR8 l0EnVfEzC6 WByaM8PkpdO8ELTuoWIjYM ZbcYIHsT3bqphaq2ifnluf McArCCDxWNs8GAq0TRMzzY duOiBsZWZ0 MlD3NUF6vLVxbH3egHfdlo zdlD4eFmo+QmlydGggRGF0 QKu5W7XeSii3FRHalNrvKD 0ncGFkZGlu In6goTlolBhyBI1tDMUpfy nkf147KrYxs8kiKAAqdIDb LYthELZ7V34vm4P5VEExDZ PoESX2qBO4 dS0kmYsvajpjkSWppLiuep ArdFrvYBmdQVmhP728MHCd oFfvXjJgHUe4D7RrRdh0PC QvyLrkPH9u cLYiORfzAf7fhTkqgFsgBJ 3jEFQyurmqt236UySsq5sh ZQVjpSEfHJyuHUA2Q42hn9 U7SMLvJHVz GVQ6tHP0jN6xcObicsbyxN VmdDsgdmVydGljYWwtYWxp B962THYkdXqzJfYfpAk7U7 CwYhe5WBHr gSubYV5wkMTgGBclHm6ejK bysBxsCD1yVHQhukpqs330 ItWtb7xuQKNkrBQbHMpiEI K9W98oo9O4 EQWwOVOiCNW1nZT7pY2yeG lnbjogbGVmdDsgdmVydGlj PWdyQQwxP558HOChoQrxBb BhdGllbnQg JVhuTRv7W5VnPhfeeGM+PC 35HFXuFT85eDXxpEKzw2sb gJh8WtZtNQIsBWD2rPrhHG fvg3KzSAEm D35paZHaq8X9TWEgvZtloZ MzLoMddLF6mD3mQEzxhgka v9smuoelHqcvg8xuvb95rH 03Q33hJQew ZHRoPSIzMCUiIHZhbGlnbj 8qbL7gFl9+JCOzkEG0xIQ8 wX0zQZXtUnS4JRgsN649Gb RvcCIvPjxj b1iwa1uatEr9MrJ2XUQhjs XlvFdpASS7y1SwCj03M59z IHdpZHRoPSIyMCUiIHZhbG cqsh0rrY1c Ii8+WATuqBY1aMK5kK3uVe EnGzN5KScyR574ZdKrlPFv UhwbM83mD3TssYD+PHRyPj m2IPJdlUol CL8oyTNsPGlzOm8sQYY9Rd DdKhDbXOpiE4ZoNERazgqi ymelbTD6EYHaJTNifE50Yu 9udDogMTBw pMIJwD9gwfaus9mfphdaWn DyMKMrTGx2PFq1UZAjyEby ThNoKSA3SzH6SZH3dYTecW 1hbGlnbjog pL7gK0TjQKUtuoscMp92vN 7mDdMmVkZ0SFlwMqk+UEhJ EVEIBXMSDCHMYU3DCZ99JW 96iABno8Z2 vSD2I4OrMVWkuxdjscbqlP G8VTWmIJKunK33iAJhCWwc Zu0yj3J4u214NSEpDMDywW 84Vw5amPwp ZEBeoFNIcH6dytwmw4vlar dnKqEhOKDyAIq5VAa5FXYu yJrbFkPxEOO5YjD3QGR2oG QdqR5kaEco dhauzM4jXio+MTIvMjcvMT l4CeftwMM+ZFCvQWV7cRuo ODekGJMkgK5tAMXxF1h4Zb HbFvQ1PTun B5WgVDIiihkwCk16tC1vVn LgKcX7UXyaR6FvhpG3CBOl kAHxWDgcFNV2Y14vk0F8PV MwMDAwMDA7 mER2xG9onFfteqvcuHLqkU wouaOhqAujCRxrTBxjP424 IHRvcDsnPjUxIFllYXJzPC 27QC00jTRp o7E3iRT0C9XaBRLuazoeua atoER2KDEeOYUobK87mXNp NRjmXu9ov1M6l746YDPrGC NzqE05Eu8f zBkcSGAusXENrY8clslsb5 jnhztnJbWjNQMkKJm8CSd0 CWHswMkqXdChRRI1ItB0QM Y6xBAghN6p oNnjachsxM0bNpb+RmVtYW tbMN17ZY78hMYwu7B8zZO3 Q1VaQMInzcatcewpoZS9QY PpDQSvmF91 bWDmIAdwXl2xc3K5u566UY YnQDXxfP84Yx2jkSpqKJXc zTNIkV9rvzazu1uhmfyoLz AwMDAwMDt0 FDk9HNCcbPecChHpLHZ0Do Z6NSE3cSLxqS8mrJdoikma zA8mPhu+O6U0sES3pGGhgJ wvdGQ+PC90 cd04K3WsCigpRbf0PKPmYA J6uYT2yF6yDAItORlos9N3 tGK4Q9EkeqTzop6ie0cpCI QrKOxzP42k qSWrp6Q7SPYsnLC2ILFxbG xmJaCmjK83Elr+PGNvbGdy g2RpKpuby2wyz5audZt3Nt MwJSIgdmFs pNrdIVV5q6IbKg87J54yNK dpZHRoPSIzMCUiIHZhbGln as4nkR7nIq5+SWOgjDK2pR C3iF3uOoFg SoA4OSstB997HuShkJHrYl jvy9maj1iadHk5EnFjVAHr thGadUxmJHV5i2BhOg27M0 QeyPgtf4Bx Vyf9ps77jQCpj6S9iWN7G5 HjJFMkufyvwJXmgMhoSV2k ZPDthwsoIHKjiJ5zFXJcN2 r6VgMoXkN8 VTczF2RhokP3SDPqlKEkVW HfnHXKyN8dsdbdo7umwsin TaYlEPWePVu8CTj9CIFwdJ duOiBsZWZ0 DdC4JXL4xWUqgS5mhByjuj vztN7gRee+YVl2h5nhsDFl BT4ijGK9PX17NW63nHFzk4 C4jET5G9Cs IGFywhocfvaqwRH4LLLlOI RwtD23Nu5gfCxbHb6qIOPu FYY6IZVfwWLkX1OfkK0fYm AjMDAwMDAw L9KebRRjBOtuP009LAbjYb G8PROqvpLsJ9JkRJTuoXlw GkL8b1B5Qf7FEI51RM35AI 56bIGzi9P9 vFI2Q0MbUSSugavnbfhmjM S4LEMxJZGwqZ83Kv9guLfq Op8hAIQxRTC7GQByaZFnY1 FlaK2pMoEn DRQyLUDpT8VwgBFwTNzsF6 62RSllRqV8OUFwznEfN4Tc YDFysYxeZtL7w4D1Ak6GIy 30GQ46AH31 gHMja6W3hGK9S6NoTUQwgl dnabqflOC0KNXfUMUxfE24 Mb9odBbhFk8qOMGuJBG7RG CrwAClK5Ff lW1kIvDzHBDrVVUeO9GalM ZjPAiuH907MMnwHzA6RBGu geXtR8HpDIDczDstDzN4l2 A0Qp8BKWef pgd3D9IcEmnreYT+PC90YW HhYV23bXNrwWIpx7eleAr6 VgIzSXDpHPQ3uWwfGBufq5 VmQVTrZ39x mPNek5W1ZDSti (more content not included)... Normal [facility] Consent for Procedure/Surger yon 11-07-2023 Consent for Procedure/Surgery [id number]#[id number] 0TIFF [facility] Consent for Treatmenton 10-20 Consent for Treatment [id number]#[id number] 0TIFF [facility] Inpatient Patient Summaryon 11-07-2023 Inpatient Patient Summary [place] [id number] Clinical Summary Person Information Name: FELY MELÉNDEZ Age: 53 Years : 1970 Sex: Female PCP: CARRIE TALBOT MD Marital Status: Race: White Ethnicity: Non- or Language: [place] Visit Id: Visit Reason: GROSS HEMATURIA Speciality: Acuity: Enc Type: Outpatient Med Service: Surgery Arrival: 11/07/2023 09:24:15 Discharge: Dispo Type: Address: [address] [place] [address] [phone] Provider Notes: Diagnosis: Gross hematuria; OAB (overactive [...] Information: EU - Cystoscopy Discharge Instructions (CUSTOM) [facility] IntraOperative Documentson 0 11-07-2023 IntraOperative Documents [id number] 0TIFF [facility] Lab Reportson 11-07-2023 Lab Reports [id number]#[id number] 0TIFF [facility] Main OR Intraoperative Recor don 11-07-2023 Main OR Intraoperative Record IntraOp Document Type FTURO Summary Primary Physician: Gemma Blanco MD Finalized Date/Time: 11/07/23 10:45:52 Pt. Name: FELY MELÉNDEZ Rad/Sex: 1970 Female Med Rec #: [id number] Physician: Gemma Blanco MD Financial #: [id number] Pt. Type: O Room/Bed: / Admit/Disch: 11/07/23 09:24:15 - Institution: Case Times FTURO Entry 1 Patient Times In Room 11/07/23 10:25:00 Out Room 11/07/23 10:36:00 Procedure Times Start 11/07/23 10:27:00 Stop 11/07/23 10:31:00 Anesthesia Times Last Modified By: Grzegorz GARLAND, Magali Pitt 11/07/23 10:30:26 Case Attendance FTURO Entry 1 Entry 2 Entry 3 Case Attendee Francis HERNANDEZ, Gemma Lantigua RN, Magali Yee LPN, Evi Pitt Role Performed Surgeon - Primary Wool Tamper - Primary Scrub - Primary Time In 11/07/23 10:25:00 11/07/23 10:25:00 11/07/23 10:25:00 Time Out 11/07/23 10:36:00 11/07/23 10:36:00 11/07/23 10:36:00 Procedure CYSTOSCOPY LOCAL(.) CYSTOSCOPY LOCAL(.) CYSTOSCOPY LOCAL(.) Comments Last Modified By: Grzegorz GARLAND, Magali Lantigua RN, Magali Lantigua RN, Magali Pitt 11/07/23 Soco Pitt 11/07/23 Soco Pitt 11/07/23 10:30:29 10:30:29 10:30:29 Surgical Procedures FTURO [...] HEMATURIA Outcomes Met? Yes Last Modified By: Magali Lantigua RN 11/07/23 10:23:09 Post-Care Text: The patient is [...] Out Gemma Blanco MD, Verified (If Participants Magali Lantigua RN Applicable) Joselito Keith LPN, Jessica D Time [...] 10:40 Magali Lantigua RN 11/07/23 10:45 Normal [facility] Main OR Preoperative Recordo n 11-07-2023 Main OR Preoperative Record Holding Area Document Type FTURO Summary Primary Physician: Gemma Blanco MD Finalized Date/Time: 11/07/23 09:53:28 Pt. Name: FELY MELÉNDEZ /Sex: 1970 Female Med Rec #: [id number] Physician: Gemma lBanco MD Financial #: [id number] Pt. Type: O Room/Bed: / Admit/Disch: 11/07/23 [...] JARETT Sanchez RN, Ruthann 11/07/23 09:53 Normal [facility] Operative Reporton Operative Report Patient: FELY MELÉNDEZ Age: 53 years Sex: Female : [...] OAB and adrenal adenoma workup . Normal [facility] Comment on above: Result Comment: Elec tronically Signed By: Gemma Blanco MD\.br\Date and Time Signed: 11/07/23 10:42 EDT Outpatient Surgery Discharge Instructionon 11-07-2023 Outpatient Surgery Discharge Instruction [id number] 0TIFF Normal [facility] Outpatient Surgery Discharge Instruction [place] [id number] Patient Discharge Instructions PERSON INFORMATION Name: FELY MELÉNDEZ Date of : 1970 Current Date: 11/07/2023 10:39:32 PHYSICIANS Admitting Physician: Gemma Blanco MD Comment: Discharge Diagnosis: Gross hematuria; OAB (overactive bladder) FELY MELÉNDEZ has been given the following list [...] have a fever over 100 degrees. I, FELY MELÉNDEZ, have received the attached patient education materials/instructions and have verbalized understanding: May we do a follow up call? Yes No I was present when discharge instructions were given Patient Signature Date Clinican/Nurse Signature ___ Date You may receive a survey from Reagan Mckeon asking you to rate your care experience. Your feedback is important and will help us understand what we do well and how we can improve the quality of care we provide to you, your loved ones and our community. It?s an honor to serve you. Thank you for choosing [facility] Normal [facility] Progress Note-Physicianon Progress Note-Physician Patient: FELY MELÉNDEZ Age: 53 years Sex: Female : [...] day, # 1 tab(s), Refills(s) 0, Pharmacy: [facility], 163, cm, 10/03/23 10:16:00 EDT, Height/Length Dosing, 113.5, kg, 10/03/23 10:16:00 EDT, Weight Dosing... mirabegron 50 mg oral tablet, extended release: 50 mg = 1 tab(s), Oral, Daily, # 30 tab(s), Refills(s) 11, Pharmacy: [facility], 163, cm, 10/03/23 10:16:00 EDT, Height/Length Dosing, 113.5, kg, 10/03/23 10:16:00 EDT, Weight Dosing Documented Medications Documented Pepcid AC: 20 mg, Oral, Once losartan 50 mg Tab: 50 mg = 1 tab(s) metoprolol 25 mg ER Tab: 25 mg = 1 tab(s), Oral, Daily spironolactone 25 mg Tab: 25 mg = 1 tab(s) Impression and Plan Assessment and Plan: Diagnosis: Adrenal adenoma (VSJ32-UP D35.00, Working, Medical), Gross hematuria (UJN23-XG R31.0, Discharge, Medical), OAB (overactive bladder) (PLA21-BT N32.81, Discharge, Medical), TEAGAN (stress urinary incontinence, female) (MJH70-II N39.3, Working, Medical). 53 year old female [...] cysto neg -Follow up urine cytology Normal [facility] Comment on above: Result Comment: Elec tronically Signed By: Francis HERNANEDZ, Gemma Siegel\.br\Date and Time Signed: 11/07/23 10:46 EDT RAD - CT Reporton 11-07-2023 RAD - CT Report [id number] TIFF Normal [facility] Urine Cytology ([facility])on 0 11-07-2023 Method of Extraction Cystoscopy Normal [facility] Comment on above: Performed By: #### 1 [id number] #### [facility] Laboratory [address] Number of Jars 1 Invalid Interpretation Code [facility] Comment on above: Performed By: #### 1 [id number] #### [facility] [address] Specimen Cystoscopy Normal [facility] Comment on above: Performed By: #### 1 [id number] #### [facility] [address] Type of Service Technical Only Normal [facility] Comment on above: Performed By: #### 1 [id number] #### [facility] [address] [place] [address] Lab Reportson 10-25-2023 Lab Reports [id number]#1.0 0TIFF Normal [facility] Lab Reportson 10-17-2023 Lab Reports [id number]#1.0 0TIFF Normal [facility] Patient Educationon 10-06-19 Patient Education Urology Dysuria [...] these instructions at home: Medicines ? Take yidk-eln-kxiptde and prescription medicines only as told by [...] provider. Document Revised: 12/18/2020 Document Reviewed: 12/18/2020 [employer] Patient Education ? 2022 [employer]. Hematuria, Adult Hematuria is blood in the [...] these instructions at home: Medicines ? Take rflz-ult-pauyrod and prescription medicines only as told by [...] follow y (more content not included)... Normal [facility] Formson 10-04-2023 Forms [id number]#1. 00TIFF [facility] Lab Reportson 10-04-2023 Lab Reports [id number]#1.0 0TIFF [facility] Ambulatory Visit Summaryon 0 10-03-2023 Ambulatory Visit Summary FELY MELÉNDEZ :1970 Visit Date:10/03/2023 Ambulatory Visit Instructions [...] mg Tab) 1 Tablets [facility]: [address] [place] [place], [place] [id number] [phone] Allergies Cipro (Unknown) Nyquil Cold Medicine (Unknown) [...] for choosing us for your care. Normal [facility] ED Note-Physicianon 08-16-19 ED Note-Physician [id number] [id number] Normal [facility] Urine Cultureon 08-09-2023 Bacteria identified Cx Nom (U) 75,000 colonies/ml mixed bacterial skin contaminants 2 Days PERFORMED BY: [place] [address] PATHOLOGIST [employer] SENIOR SERGEANT ISABELA MUÑOZ M.D. [facility] Comment on above: Performed By: #### C UU #### [address] Laboratory - Chemistry and C hemistry - challengeon 08-03-2023 Bilirubin Ql (U) Negative [facility] Glucose (U) [Mass/Vol] Negative [facility] Ketones Ql (U) Negative [facility] pH (U) 5.0 [pH] [facility] Specific gravity (U) [Rel density] 1.015 [facility] Urobilinogen (U) [Mass/Vol] 0.2 mg/dL [facility] Laboratory - Specimen inform ationon 08-03-2023 Appearance (U) clear [facility] Color (U) yellow [facility] Laboratory - Urinalysison Leukocyte esterase Test strip Ql (U) Negative [facility] Nitrite Ql (U) Negative [facility] Protein Ql (U) + [facility] No Panel Informationon 08-02 Urine Occult Blood + [facility] XR KNEE 4+ VIEWS LEFTon [...] Weight Tips; Status:Complete - Retrospective Authorization; Done: [id number] Some eating tips that can help you lose weight.; Status:Complete - Retrospective Authorization; Done: [id number] SocHx: Current smoker You need to quit smoking.; Status:Complete - Retrospective Authorization; Done: [id number] Tobacco Use Screening; Status:Complete; Done: [id number] You need to stop smoking. Though it is not easy, more than half of all adult smokers have quit. We encourage you to write down all the reasons you should quit smoking and set a quit date for yourself. Ask us how we can help. You may also call 5-692-QRXF-NOW for free resources and assistance.; Status:Complete - Retrospective Authorization; Done: [id number] Patient Instructions Please bring all medicines, vitamins, [...] Follow up in 4 months Chief Complaint FELY MELÉNDEZ is being seen for a 4 [...] negative for complaint. Vitals Vital Signs Recorded: 02Dec2022 09:55AM Heart Rate60, L Radial Qthrjbhi192, LUE, Sitting Hjsnzdowv71, LUE, Sitting Height5 ft 4 in Oqiabr404 lb BMI Ualybedzev44.2 kg/m2 BSA Calculated2.11 Tobacco Usea) Yes Patient [...] no ma (more content not included)... Normal [facility] Tobacco Screening.on 023 Fall risk assessment c) Not medically indicated [facility] [employer] y 250 DO Work Phone: Tobacco use status [facility] a) Yes [facility] [employer] y 250 DO Work Phone: Tobacco Screening. Yes [facility] y 250 DO Work Phone: Office Visit [...] we can help. You may also call 7-296-ICGZNOW for free resources and assistance.; Status:Complete - [...] salt. Educated on DASH diet. Chief Complaint FELY MELÉNDEZ is being seen for a consultation [...] to retrieve her recent Holter monitor from [place] 3. I suggested a trial of a [...] VITALSon 08-11-2022 Adult depression screening assessment No [facility] y 250 DO Work Phone: Tobacco Screening.on 023 Tobacco use status [facility] a) Yes [facility] 250 DO Work Phone: Tobacco Screening. Yes [facility] 250 DO Work Phone: ECHOCARDIO M/2D COMPLETEon 0 06-27-2022 ECHOCARDIO M/2D COMPLETE Patient: FELY MELÉNDEZ Exam Date: 06/27/2022 : 1970 Gender:F Ordering : DR CARRIE TALBOT M.D. Admission #: [id number] Family : Order #: [id number] CLICK HERE TO VIEW EXAM ECHOCARDIOGRAM REPORT [...] M.D. on 06/28/2022 at 19:30 Normal [facility] BNPon 06-10-2022 Natriuretic peptide B (Bld) [Mass/Vol] 384.0 pg/mL Normal <=900.0 [facility] Comment on above: Performed By: #### B ACID ADJUSTER, BMP, HSTROPN ####[facility] Nniqylzswi8204 [address] StreetMiranda Saha CBC AUTO DIFFon 06-10-2022 BASO # 0.0 103/ul Normal 0.0-0.1 [facility] Comment on above: Performed By: #### C BC ####[facility] [address] [place] [address]Dr. Alis Saha Basophils/100 WBC (Bld) 0.5 % Normal 0.2-2.0 [facility] Comment on above: Performed By: #### C BC ####[facility] [address] [place], [place] [address]Dr. Kavitatrace Yifan EO # 0.1 103/ul Normal 0.0-0.7 [facility] Comment on above: Performed By: #### C BC ####[facility] [address] [place], [place] [address]Dr. Alis Yifan Eosinophils/100 WBC (Bld) 1.6 % Normal 0.9-7.0 [facility] Comment on above: Performed By: #### C BC ####[facility] Fnlkdf[address]cm[address] [place], [place] [address]Dr. Alis Saha Erythrocyte distribution width (RBC) [Ratio] 15.9 % Critically high 11.0-15.0 [facility] Comment on above: Performed By: #### C BC ####[facility] Y[address]dt[address] [place], [place] [address]Dr. Alis Saha Hematocrit (Bld) [Volume fraction] 37.1 % Normal 36.0-48.0 [facility] Comment on above: Performed By: #### C BC ####[facility] Qvyyx[address]mye[address] [place], [place] [address]Dr. Alis Saha Hemoglobin (Bld) [Mass/Vol] 12.2 g/dL Normal 12.0-16.0 [facility] Comment on above: Performed By: #### C BC ####[facility] Fr[address]xs[address] [place], [place] [address]Dr. Alis Saha IG # 0.02 10e3/ul Normal 0.00-0.03 [facility] Comment on above: Performed By: #### C BC ####[facility] X[address] [place], [place] [address]Dr. Alis Saha IG % 0.2 % Normal 0.0-0.5 [facility] Comment on above: Performed By: #### C BC ####[facility] [address] [place] [address]Dr. Alis Saha LYMPH # 3.2 103/ul Normal 1.2-3.8 [facility] Comment on above: Performed By: #### C BC ####[facility] T[address]uvqb75[address] [place] [address]Dr. Alis Saha Lymphocytes/100 WBC (Bld) 37.3 % Normal 20.5-60.0 [facility] Comment on above: Performed By: #### C BC ####[facility] A[address]p25[address] [place] [address]DrMiranda Saha MANUAL DIFF REQ NO Normal [facility] Comment on above: Performed By: #### C BC ####[facility] V[address]ylzwiqjt42[address] [place] [address]Dr. Kavitatrace Saha MCH (RBC) [Entitic mass] 29.8 pg Normal 26.7-34.0 [facility] Comment on above: Performed By: #### C BC ####[facility] Y[address] [place], [place] [address]Dr. Alis Yifan MCHC (RBC) [Mass/Vol] 32.9 g/dL Normal 29.9-35.2 [facility] Comment on above: Performed By: #### C BC ####[facility] [address] [place], [place] [address]DrMiranda Saha MCV (RBC) [Entitic vol] 90.5 fL Normal 81.0-99.0 [facility] Comment on above: Performed By: #### C BC ####[facility] [address]le[address] [place] [address]DrMiranda Saha MONO # 0.4 103/ul Normal 0.3-0.8 [facility] Comment on above: Performed By: #### C BC ####[facility] [address] [place], [place] [address]DrMiranda Saha Monocytes/100 WBC (Bld) 4.6 % Normal 1.7-12.0 [facility] Comment on above: Performed By: #### C BC ####[facility] [address]cv[address] [place] [address]Dr. Alis Saha NEUT # 4.8 103/ul Normal 1.4-6.5 [facility] Comment on above: Performed By: #### C BC ####[facility] F[address]old[address] [place] [address]Dr. Alis Saha Neutrophils/100 WBC (Bld) 55.8 % Normal 43.0-75.0 [facility] Comment on above: Performed By: #### C BC ####[facility] [address]qedwxnr24[address] [place] [address]Dr. Alis Saha Platelet mean volume (Bld) [Entitic vol] 9.9 fL Normal 9.5-13.5 [facility] Comment on above: Performed By: #### C BC ####[facility] [address]rxpcmo26[address] [place] [address]Dr. Alis Saha PLT 265 103/ul Normal 150-450 [facility] Comment on above: Performed By: #### C BC ####[facility] G[address]z43[address] [place] [address]Dr. Alis Saha RBC 4.10 106/ul Critically low 4.20-5.40 [facility] Comment on above: Performed By: #### C BC ####[facility] [address]metfjd[address] [place] [address]Dr. Alis Saha WBC 8.7 103/ul Normal 4.0-11.0 [facility] Comment on above: Performed By: #### C BC ####[facility] [address] [place], [place] [address]Dr. Alis Saha [facility]23 SARS-CoV-2 (COVID-19) RNA AMANDA+probe Ql (Unsp spec) Not detected Normal NOT DETECTED [facility] Comment on above: Result Comment: When diagnostic [...] for this test is supported by the [place] of Health and Human Service's declaration that [...] used). Performed By: #### C VDTBH #### [facility] [address] [place] [address] [address] Alis Saha PROF CHEM 8 (BAS METB)on Anion gap [Moles/Vol] 11.7 mmol/L Normal [facility] Comment on above: Performed By: #### B ACID ADJUSTER, BMP, HSTROPN ####[facility] Ob[address]w64[address] [place] [address]Dr. Alis Saha Calcium [Mass/Vol] 8.8 mg/dL Normal 8.5-10.1 [facility] Comment on above: Performed By: #### B ACID ADJUSTER, BMP, HSTROPN ####[facility] [address]uy[address] [place] [address]Dr. Alis Saha Chloride [Moles/Vol] 108 mmol/L Critically high 98-107 [facility] Comment on above: Performed By: #### B ACID ADJUSTER, BMP, HSTROPN ####[facility] Qmcdjfuivd1092 [place] [address]Dr. Alis Saha CO2 [Moles/Vol] 23.7 mmol/L Normal 21.0-32.0 [facility] Comment on above: Performed By: #### B ACID ADJUSTER, BMP, HSTROPN ####[facility] Tjwxgpluet50[address] [place] [address]Dr. Alis Saha Creatinine [Mass/Vol] 0.70 mg/dL Normal 0.55-1.02 [facility] Comment on above: Performed By: #### B ACID ADJUSTER, BMP, HSTROPN ####[facility] Igumnhadcw[address] [place] [address]Dr. Alis Saha EGFR-AF SAO TOMEAN >60 Normal >=60 [facility] Comment on above: Performed By: #### B ACID ADJUSTER, BMP, HSTROPN ####[facility] Tzuolsuqvi9[address] [place] [address]Dr. Alis Saha EGFR-NON AF SAO TOMEAN >60 Normal >=60 [facility] Comment on above: Performed By: #### B ACID ADJUSTER, BMP, HSTROPN ####[facility] Uugddmbkjx[address] [place], [place] [address]Dr. Alis Saha Glucose [Mass/Vol] 119 mg/dL Critically high 74-106 [facility] Comment on above: Performed By: #### B ACID ADJUSTER, BMP, HSTROPN ####[facility] Upex[address]knbz[address] [place], [place] [address]Dr. Alis Saha Potassium [Moles/Vol] 3.4 mmol/L Critically low 3.5-5.1 [facility] Comment on above: Performed By: #### B ACID ADJUSTER, BMP, HSTROPN ####[facility] Tnczt[address]dsqm38[address] [place] [address]Dr. Alis Saha Sodium [Moles/Vol] 140 mmol/L Normal 136-145 [facility] Comment on above: Performed By: #### B ACID ADJUSTER, BMP, HSTROPN ####[facility] Pzvewldiez70[address] [place] [address]Dr. Alis Saha Urea nitrogen [Mass/Vol] 14.0 mg/dL Normal 7.0-18.0 [facility] Comment on above: Performed By: #### B ACID ADJUSTER, BMP, HSTROPN ####[facility] [address]so[address]zvc[address] [place], [place] [address]Dr. Alis Saha Urea nitrogen/Creatinine [Mass ratio] 20.0 mg/mg Normal [facility] Comment on above: Performed By: #### B ACID ADJUSTER, BMP, HSTROPN ####[facility] [address]ozma[address] [place], [place] [address]Db. Alis Saha TROPONIN, HIGH SENSITIVITYon 06-10-2022 HSTROP 9.9 pg/mL Normal 4.0-51.3 [facility] Comment on above: Result Comment: CUT- OFF POINTS HAVE BEEN ESTABLISHED BASED ON THE FOURTH UNIVERSAL DEFINITIONS OF MYOCARDIAL INFARCTION. THE UPPER REFERENCE LIMIT (URL) OF TROPONIN, DEFINED THE 99TH PERCENTILE OF cTnI DISTRIBUTION IN A REFERENCE POPULATION, HAS BEEN CONFIRMED THE DECISION THRESHOLD FOR [place] DIAGNOSIS. Performed By: #### B ACID ADJUSTER, BMP, HSTROPN ####[facility] Wnxpzdymir978[address] [place], [place] [address]Xp. Alis Saha XR CHEST 1 Von 06-10-2022 [...] by: POPPY GREEN Date: 2022-06-09 23:02 Normal [facility] XR LSPINE MIN 4 VIEWSon 01-20 [...] CARLOS VILLATORO Date: 2022-02-02 07:17 Normal [facility] XR CSPINE 2_3 VIEWSon 2021 XR CSPINE [...] CARLOS VILLATORO Date: 2021-10-01 07:13 Normal [facility] CBC AUTO DIFFon 09-30-2021 BASO # 0.0 103/ul Normal 0.0-0.1 [facility] Comment on above: Performed By: #### C BC ####[facility] L[address]gszxqv[address] [place], [place] [address]Dr. Alis Saha Basophils/100 WBC (Bld) 0.4 % Normal 0.2-2.0 [facility] Comment on above: Performed By: #### C BC ####[facility] [address]mwen[address] [place], [place] [address]Dr. Alis Saha EO # 0.1 103/ul Normal 0.0-0.7 [facility] Comment on above: Performed By: #### C BC ####[facility] Rint[address] [place], [place] [address]Dr. Alis Saha Eosinophils/100 WBC (Bld) 1.6 % Normal 0.9-7.0 [facility] Comment on above: Performed By: #### C BC ####[facility] Jewve[address]fcw[address] [place], [place] [address]Dr. Alis Saha Erythrocyte distribution width (RBC) [Ratio] 15.1 % Critically high 11.0-15.0 [facility] Comment on above: Performed By: #### C BC ####[facility] Nls[address]vm[address]wi[address] [place], [place] [address]Dr. Alis Saha Hematocrit (Bld) [Volume fraction] 41.9 % Normal 36.0-48.0 [facility] Comment on above: Performed By: #### C BC ####[facility] Xtwyqmarjm3090 [place] [address]Dr. Alis Saha Hemoglobin (Bld) [Mass/Vol] 13.5 g/dL Normal 12.0-16.0 [facility] Comment on above: Performed By: #### C BC ####[facility] Kdvjhzjljb9049 [place] [address]Dr. Alis Saha IG # 0.01 10e3/ul Normal 0.00-0.03 [facility] Comment on above: Performed By: #### C BC ####[facility] H[address]jgkiri52[address] [place] [address]Dr. Alis Saha IG % 0.1 % Normal 0.0-0.5 [facility] Comment on above: Performed By: #### C BC ####[facility] Z[address]flnetvwv2186 [place] [address]Dr. Alis Saha LYMPH # 2.3 103/ul Normal 1.2-3.8 [facility] Comment on above: Performed By: #### C BC ####[facility] Xtfrepvrfp3165 [place] [address]Dr. Alis Saha Lymphocytes/100 WBC (Bld) 27.9 % Normal 20.5-60.0 [facility] Comment on above: Performed By: #### C BC ####[facility] Dxai[address]xzah89[address] [place] [address]Dr. Alis Saha MANUAL DIFF REQ NO Normal [facility] Comment on above: Performed By: #### C BC ####[facility] [address]sxfo[address] [place], [place] [address]Dr. Alis Saha MCH (RBC) [Entitic mass] 28.8 pg Normal 26.7-34.0 [facility] Comment on above: Performed By: #### C BC ####[facility] [address]bo[address]xt[address] [place], [place] [address]Dr. Alis Saha MCHC (RBC) [Mass/Vol] 32.2 g/dL Normal 29.9-35.2 [facility] Comment on above: Performed By: #### C BC ####[facility] A[address]npwyuay26[address] [place] [address]Dr. Alis Saha MCV (RBC) [Entitic vol] 89.3 fL Normal 81.0-99.0 [facility] Comment on above: Performed By: #### C BC ####[facility] L[address]rdaeaf5[address] [place] [address]Dr. Alis Saha MONO # 0.5 103/ul Normal 0.3-0.8 [facility] Comment on above: Performed By: #### C BC ####[facility] V[address]bsfszqf[address] [place], [place] [address]Dr. Alis Saha Monocytes/100 WBC (Bld) 5.6 % Normal 1.7-12.0 [facility] Comment on above: Performed By: #### C BC ####[facility] L[address]eq[address]qzkv[address] [place], [place] [address]Dr. Alis Saha NEUT # 5.3 103/ul Normal 1.4-6.5 [facility] Comment on above: Performed By: #### C BC ####[facility] [address]vclkeghbc[address] [place], [place] [address]Dr. Alis Saha Neutrophils/100 WBC (Bld) 64.4 % Normal 43.0-75.0 [facility] Comment on above: Performed By: #### C BC ####[facility] Hpbytjqoiz[address] [place], [place] [address]Dr. Alis Saha Platelet mean volume (Bld) [Entitic vol] 9.5 fL Normal 9.5-13.5 [facility] Comment on above: Performed By: #### C BC ####[facility] [address]ekk[address] [place], [place] [address]Dr. Alis Saha PLT 316 103/ul Normal 150-450 [facility] Comment on above: Performed By: #### C BC ####[facility] [address]xsvu[address] [place], [place] [address]Dr. Alis Yifan RBC 4.69 106/ul Normal 4.20-5.40 [facility] Comment on above: Performed By: #### C BC ####[facility] Lisxpvxfmg16[address] [place] [address]DrMiranda Saha WBC 8.2 103/ul Normal 4.0-11.0 [facility] Comment on above: Performed By: #### C BC ####[facility] [address]vfrjfty2[address] [place] [address]Dr. Alis Saha GLYCOHEMOGLOBIN A1Con 2021 ADA RECOMMENDATION SEE BELOW Normal [facility] Comment on above: Result Comment: ADA RECOMMENDED LIMIT 4.0 - 6.0 ADA THERAPEUTIC TARGET < 7.0 ACTION SUGGESTED > 7.0 Performed By: #### A 1C ####[facility] R[address] [place] [address]Dr. Alis Saha Glucose [Mass/Vol] 128 mg/dL Normal [facility] Comment on above: Performed By: #### A 1C ####[facility] [address]xdjg7[address] [place] [address]Dr. Alis Saha HbA1c (Bld) [Mass fraction] 6.1 % Normal 4.5-6.2 [facility] Comment on above: Performed By: #### A 1C ####[facility] Cfwbrrcgeb48[address] [place] [address]Dr. Alis Saha PROF CHEM 8 (BAS METB)on Anion gap [Moles/Vol] 11.5 mmol/L Normal [facility] Comment on above: Performed By: #### T SANA, BMP #### [facility] [address] [address] [address] Alis Saha Calcium [Mass/Vol] 8.7 mg/dL Normal 8.5-10.1 [facility] Comment on above: Performed By: #### T SANA, BMP #### [facility] [address] [address] [address] Alis Saha Chloride [Moles/Vol] 104 mmol/L Normal 98-107 [facility] Comment on above: Performed By: #### T SANA, BMP #### [facility] [address] [place] [address] [address] Alis Saha CO2 [Moles/Vol] 25.5 mmol/L Normal 21.0-32.0 [facility] Comment on above: Performed By: #### T SH, BMP #### [facility] [address] [address] [address] Alis Saha Creatinine [Mass/Vol] 0.85 mg/dL Normal 0.55-1.02 [facility] Comment on above: Performed By: #### T SH, BMP #### [facility] [address] [address] [address] Alis Saha EGFR-AF SAO TOMEAN >60 Normal >=60 [facility] Comment on above: Performed By: #### T SH, BMP #### [facility] [address] [place] [address] Dr. Alis Saha EGFR-NON AF SAO TOMEAN >60 Normal >=60 [facility] Comment on above: Performed By: #### T SH, BMP #### [facility] [address] [place] [address] Dr. Alis Saha Glucose [Mass/Vol] 101 mg/dL Normal 74-106 [facility] Comment on above: Performed By: #### T SH, BMP #### [facility] [address] [address] [address] Alis Saha Potassium [Moles/Vol] 4.0 mmol/L Normal 3.5-5.1 [facility] Comment on above: Performed By: #### T SH, BMP #### [facility] [address] [place] [address] Dr. Alis Saha Sodium [Moles/Vol] 137 mmol/L Normal 136-145 [facility] Comment on above: Performed By: #### T SH, BMP #### [facility] [address] [address] [address] Alis Saha Urea nitrogen [Mass/Vol] 13.0 mg/dL Normal 7.0-18.0 [facility] Comment on above: Performed By: #### T SH, BMP #### [facility] [address] [place] [address] Dr. Alis Saha Urea nitrogen/Creatinine [Mass ratio] 15.3 mg/mg Normal [facility] Comment on above: Performed By: #### T SH, BMP #### [facility] [address] [address] [address] Alis Saha TSHon 09-30-2021 TSH 1.548 uIU/mL Normal 0.358-3.[address] [facility] Comment on above: Performed By: #### T SH, BMP #### [facility] [address] [address] [address] Alis Saha TSH RANGE SEE BELOW Normal [facility] Comment on above: Result Comment: <0.3 4 UIU/ml HYPERTHYROID 0.34-5.60 UIU/ml EUTHYROID >5.60 UIU/ml HYPOTHYROID Performed By: #### T SH, BMP #### [facility] [address] [address] [address] Alis Saha VC CONSULT FOLLOWUPon 2021 VC CONSULT FOLLOWUP Patient: FELY MELÉNDEZ Exam Date: 07/19/2021 : 1970 Gender:F Ordering : DR JUAN CARLOS VILLATORO M.D. Admission #: [id number] Family : Order #: [id number] CLICK HERE TO VIEW EXAM RADIOLOGY REPORT [...] Villatoro MD on 07/19/2021 at 15:16 Normal [facility] VC EXT VENOUS RT LIMITEDon 0 07-19-2021 VC EXT VENOUS RT LIMITED Patient: FELY MELÉNDEZ Exam Date: 07/19/2021 : 1970 Gender:F Ordering : DR JUAN CARLOS VILLATORO M.D. Admission #: [id number] Family : Order #: [id number] CLICK HERE TO VIEW EXAM RADIOLOGY REPORT [...] to distal calf. Heat induced thrombus in wardrobe specialty worker distal calf 1.4 mm from PTV and [...] vein with occlusion of 2 associated incompetent wardrobe specialty worker veins No deep vein thrombus Dictated by: Juan Carlos Villatoro MD on 07/19/2021 at 14:36 Approved by: Juan Carlos Villatoro MD on 07/19/2021 at 14:37 Normal [facility] VC ENDOVENOUS ABL 1ST V RTon 07-14-2021 VC ENDOVENOUS ABL 1ST V RT Patient: FELY MELÉNDEZ Exam Date: 07/14/2021 : 1970 Gender:F Ordering : DR JUAN CARLOS VILLATORO M.D. Admission #: [id number] Family : Order #: [id number] CLICK HERE TO VIEW EXAM RADIOLOGY REPORT [...] Palacios M.D. on 07/14/2021 at 14:50 Normal [facility] Vital Signs Date Time Vital Sign Value Performing Clinician Facility 03-04-2024 10:12-0400 Body mass index (BMI) [Ratio] 42.05 kg/m2 [employer] Phone: [facility] 03-04-2024 10:12-0400 Body weight 111.13 kg [employer] Phone: [facility] 03-04-2024 10:12-0400 Diastolic blood pressure 94 mm[Hg] [employer] Phone: [facility] 03-04-2024 10:12-0400 Systolic blood pressure 142 mm[Hg] [employer] Phone: [facility] 02-14-2024 15:42-0400 Blood Pressure Location [employer] [facility] 02-14-2024 15:42-0400 Diastolic blood pressure 78 mm[Hg] Mikhail JEFFERSONL [facility] 02-14-2024 15:42-0400 Heart rate 76 /min Mikhail VENEGAS [facility] 02-14-2024 15:42-0400 Respiratory rate 16 /min Mikhail VENEGAS [facility] 02-14-2024 15:42-0400 Systolic blood pressure 118 mm[Hg] Mikhail JEFFERSONNeto [facility] 01-18-2024 11:13-0400 Body height 163.83 cm [facility] 01-18-2024 11:13-0400 Body mass index (BMI) [Ratio] 42 kg/m2 [facility] 01-18-2024 11:13-0400 Body weight 112.94 kg [facility] 01-18-2024 11:13-0400 Diastolic blood pressure 80 mm[Hg] [facility] 01-18-2024 11:13-0400 Heart rate 65 /min [facility] 01-18-2024 11:13-0400 Systolic blood pressure 146 mm[Hg] [facility] 11-03-2023 10:24-0400 Diastolic blood pressure 87 mm[Hg] Bonny Meyer MD Work Phone: [facility] 11-03-2023 10:24-0400 Systolic blood pressure 132 mm[Hg] Bonny Meyer MD Work Phone: [facility] 11-03-2023 10:04-0400 Body height 162.6 cm Bonny Meyer MD Work Phone: [facility] 11-03-2023 10:04-0400 Body mass index (BMI) [Ratio] 43.43 kg/m2 Bonny Meyer MD Work Phone: [facility] 11-03-2023 10:04-0400 Body weight 114.76 kg Bonny Meyer MD Work Phone: [facility] 11-03-2023 10:04-0400 Heart rate 68 /min Bonny Meyer MD Work Phone: [facility] 10-03-2023 09:53-0400 Diastolic blood pressure 106 mm[Hg] Zulema Joya [facility] 10-03-2023 09:53-0400 Heart rate 73 /min Zulema Orzech [facility] 10-03-2023 09:53-0400 Respiratory rate 19 /min Zulema Orzech [facility] 10-03-2023 09:53-0400 Systolic blood pressure 146 mm[Hg] Zulema Orzech [facility] 08-09-2023 11:52-0400 Body height 163.83 [facility] [employer] 08-09-2023 11:52-0400 Body mass index (BMI) [Ratio] 41.8 kg/m2 [facility] 08-09-2023 11:52-0400 Body temperature 96.8 [degF] [facility] 08-09-2023 11:52-0400 Body weight 112.09 kg [facility] 08-09-2023 11:52-0400 Diastolic blood pressure 81 mm[Hg] [facility] 08-09-2023 11:52-0400 Heart rate 80 /min [facility] 08-09-2023 11:52-0400 Systolic blood pressure 114 mm[Hg] [facility] 05-31-2023 10:15-0500 Body height 163.83 cm Carrie Talbot Other [facility] 05-31-2023 10:15-0500 Body mass index (BMI) [Ratio] 42.89 kg/m2 Carrie Talbot Other [employer] Other 05-31-2023 10:15-0500 Body weight 115.12 kg Carrie Talbot Other [facility] 05-31-2023 10:15-0500 Diastolic blood pressure 83 mm[Hg] Carrie Talbot Other [facility] 05-31-2023 10:15-0500 Systolic blood pressure 124 mm[Hg] Carrie Talbot Other [facility] 04-20-2023 11:15-0500 Body height 163.83 cm Carrie Talbot Other [facility] [employer] Other 04-20-2023 11:15-0500 Body mass index (BMI) [Ratio] 42.58 kg/m2 Carrie Talbot Other [facility] [employer] Other 04-20-2023 11:15-0500 Body weight 114.31 kg Carrie Talbot Other [employer] Other 04-20-2023 11:15-0500 Diastolic blood pressure 88 mm[Hg] Carrie Talbot Other [employer] Other 04-20-2023 11:15-0500 Systolic blood pressure 138 mm[Hg] Carrie Talbot Other [employer] Other 02-21-2023 11:15-0400 Body height 163.83 cm Carrie Talbot Other [employer] Other 02-21-2023 11:15-0400 Body mass index (BMI) [Ratio] 41.91 kg/m2 Carrie Talbot Other [employer] Other 02-21-2023 11:15-0400 Body weight 112.49 kg Carrie Talbot Other [employer] Other 02-21-2023 11:15-0400 Diastolic blood pressure 86 mm[Hg] Carrie Talbot Other [employer] Other 02-21-2023 11:15-0400 Systolic blood pressure 130 mm[Hg] Carrie Talbot Other [facility] [employer] Other 12-02-2022 09:55-0400 Body height 162.56 cm Carrie Talbot Work Phone: [facility] [facility] DO Work Phone: 12-02-2022 09:55-0400 Body mass index (BMI) [Ratio] 41.2 kg/m2 Carrie Talbot Work Phone: [facility] [facility] DO Work Phone: 12-02-2022 09:55-0400 Body surface area Derived from formula 2.11 m2 Carrie Talbot Work Phone: [facility] DO Work Phone: 12-02-2022 09:55-0400 Body weight 108.86 kg Carrie Talbot Work Phone: [facility] [facility] DO Work Phone: 12-02-2022 09:55-0400 Diastolic blood pressure 62 mm[Hg] Carrie Talbot Work Phone: [facility] DO Work Phone: 12-02-2022 09:55-0400 Heart rate 60 /min Carrie Talbot Work Phone: [facility] [facility] DO Work Phone: 12-02-2022 09:55-0400 Systolic blood pressure 118 mm[Hg] Carrie Talbot Work Phone: [facility] DO Work Phone: 08-11-2022 13:37-0400 Diastolic blood pressure 86 mm[Hg] Carrie Talbot Work Phone: [facility] [facility] DO Work Phone: 08-11-2022 13:37-0400 Systolic blood pressure 137 mm[Hg] Carrie Talbot Work Phone: [facility] [facility] DO Work Phone: 08-11-2022 13:26-0400 Heart rate 62 /min Carrie Talbot Work Phone: [facility] [facility] DO Work Phone: 08-11-2022 13:24-0400 Diastolic blood pressure 88 mm[Hg] Carrie Talbot Work Phone: [facility] [facility] DO Work Phone: 08-11-2022 13:24-0400 Systolic blood pressure 132 mm[Hg] Carrie Talbot Work Phone: [facility] DO Work Phone: 08-11-2022 13:23-0400 Body height 162.56 cm Carrie Talbot Work Phone: [facility] DO Work Phone: 08-11-2022 13:23-0400 Body mass index (BMI) [Ratio] 40.85 kg/m2 Carrie Talbot Work Phone: [facility] [facility] DO Work Phone: 08-11-2022 13:23-0400 Body surface area Derived from formula 2.11 m2 Carrie Talbot Work Phone: [facility] [facility] DO Work Phone: 08-11-2022 13:23-0400 Body weight 107.96 kg Carrie Talbot Work Phone: [facility] [facility] DO Work Phone: 08-11-2022 13:23-0400 Diastolic blood pressure 90 mm[Hg] Carrie Talbot Work Phone: [facility] [facility] DO Work Phone: 08-11-2022 13:23-0400 Systolic blood pressure 140 mm[Hg] Carrie Johnson Talbot Work Phone: -[facility] DO Work Phone: Encounters Encounter Date Encounter Type Care Provider Facility Start: 03-04-2024 End: 03-04-2024 Bamboo flowsheet Nando Landon DO Work Phone: [facility] Start: 03-04-2024 End: 03-04-2024 Bamboo flowsheet Nando Landon DO Work Phone: [facility] Start: 03-04-2024 End: 03-04-2024 Patient encounter procedure Nando Landon DO Work Phone: [facility] Start: 03-04-2024 End: 03-04-2024 Periodic preventive med est patient 18-39 yrs Nando Landon DO Work Phone: [facility] Comment on above: Postmenopausal state ; Well woman exam with routine gynecological exam; Breast cancer screening by mammogram; Preoperative examination; Pelvic pain in female; Endometrial polyp Start: 03-04-2024 End: 03-04-2024 Preprocedural examination done Nando Landon DO Work Phone: [facility] Start: 03-04-2024 End: 03-04-2024 ambulatory NANDO LANDON Not Available Start: 02-14-2024 ambulatory Mikhail VENEGAS Facility :[facility] Start: 02-14-2024 End: 02-14-2024 Patient encounter procedure Mikhail VENEGAS [facility] [place] Start: 02-05-2024 End: 02-05-2024 ambulatory NANDO LANDON Not Available Start: 01-30-2024 End: 01-30-2024 ambulatory Zulema Joya Facility:[facility] Start: 01-30-2024 End: 01-30-2024 Patient encounter procedure Zulema X Orzech [facility] Start: 01-19-2024 ambulatory Zulema Orzech Facility: [facility] Start: 01-18-2024 End: 01-18-2024 ambulatory [facility] Work Phone: Start: 01-18-2024 End: 01-18-2024 Patient encounter procedure [facility] Work Phone: Start: 01-09-2024 End: 01-09-2024 ambulatory Zulema X Orzech Facility:[facility] Start: 01-09-2024 End: 01-09-2024 Patient encounter procedure Zulema X Orzech [facility] Start: 01-08-2024 End: 01-08-2024 ambulatory NANDO LANDON Not Available Start: 12-06-2023 End: 12-06-2023 ambulatory NANDO LANDON Not Available Start: 11-07-2023 End: 11-07-2023 ambulatory Gemma Blanco Facility:[facility] Start: 11-07-2023 End: 11-07-2023 Patient encounter procedure Gemma Blanco [facility] Start: 11-03-2023 End: 11-03-2023 ambulatory [facility]ulatory Start: 11-03-2023 End: 11-03-2023 Office outpatient visit 25 minutes Bonny Meyer MD Work Phone: [facility] Comment on above: Palpitations (Primar y Dx); Essential hypertension; Shortness of breath; BMI 40.0-44.9, adult (Multi); Current smoker Start: 10-03-2023 End: 10-03-2023 ambulatory Zulema X Orzech Facility:[facility] [place] Start: 10-03-2023 End: 10-03-2023 Patient encounter procedure Zulema X Orzech [facility] Start: 08-10-2023 ambulatory Zulema Joya Facility: [facility] Start: 08-09-2023 End: 08-09-2023 Departed Referred MD Carrie Talbot Work Phone: [facility] [place] Work Phone: Start: 08-09-2023 End: 08-09-2023 ambulatory Carrie Talbot [facility] Work Phone: Start: 08-09-2023 End: 08-09-2023 Patient encounter procedure [facility] Work Phone: Start: 08-03-2023 End: 08-03-2023 ambulatory [facility] Work Phone: Start: 08-03-2023 End: 08-03-2023 Patient encounter procedure [facility] Work Phone: Start: 05-31-2023 End: 05-31-2023 ambulatory Carrie Talbot Other [employer] Other Start: 05-31-2023 Office outpatient vi sit 15 minutes Carrie Talbot [facility] Start: 05-31-2023 End: 05-31-2023 Patient encounter procedure [facility] Work Phone: Start: 05-25-2023 End: 05-25-2023 ambulatory ZOLTAN HENDERSON Not Available Start: 04-24-2023 End: 04-24-2023 ambulatory Carrie Talbot Other [employer] Other Start: 04-24-2023 Telephone encounter Carrie Talbot [facility] Start: 04-20-2023 End: 04-20-2023 ambulatory Carrie Talbot Other [facility] Other Start: 04-20-2023 Office outpatient vi sit 15 minutes Carrie Talbot [facility] Start: 03-28-2023 (Televisit) Televisit Carrie Gong [facility] Start: 03-28-2023 End: 03-28-2023 ambulatory Carrie Talbot Other [employer] Other Start: 02-21-2023 End: 02-21-2023 ambulatory Carrie Talbot Other [employer] [facility] Other Start: 02-21-2023 Office outpatient vi sit 25 minutes Carrie Talbot [facility] Start: 12-02-2022 ambulatory MD CARRIE TALBOT Facility: Start: 12-02-2022 Office outpatient vi sit 15 minutes Carrie Talbot Work [facility]: [facility] Work Phone: Start: 08-18-2022 End: 08-18-2022 ambulatory Carrie Talbot Other [employer] Other Start: 08-18-2022 Telephone encounter Carrie Talbot [facility] Start: 08-11-[address] Bonny Meyer Facility: Start: 08-11-2022 Office consultation new/estab patient 60 min Carrie Talbot Work Phone: [facility] DO Work Phone: Start: 08-05-2022 End: 08-05-2022 ambulatory Carrie Talbot Other [employer] Other Start: 08-05-2022 Nursing evaluation o f patient and report Carrie Talbot [facility] Start: 07-04-2022 End: 07-04-2022 ambulatory Carrie Talbot Other [employer] Other Start: 07-04-2022 Telephone encounter Carrie Talbot [facility] Start: 06-27-2022 End: 06-28-[address] CARRIE TALBOT Facility: Start: 06-22-2022 End: 06-22-2022 ambulatory Carrie Talbot Other [employer] Other Start: 06-22-2022 Telephone encounter Carrie Talbto [facility] Start: 06-14-2022 End: 06-14-2022 ambulatory Carrie Talbot Other [employer] Other Start: 06-14-2022 Telephone encounter Carrie Talbot [facility] Start: 06-12-2022 End: 06-12-2022 ambulatory ELY DANIELLE Facility:[facility] Start: 06-09-2022 End: 06-10-[address] [...] MG BURNETT Facility:[facility] Start: 07-26-[address] CARRIE TALBOT Facil ity:[facility] Start: 07-19-2021 End: 07-20-[address] JUAN CARLOS VILLATORO Facility:[facility] Start: 07-14-2021 End: 07-15-[address] JUAN CARLOS VILLATORO Facility:[facility] Procedures Date Procedure Procedure Detail Performing Clinician Start: 11-07-2023 Cystoscopy Zulema Orz ech Cholecystectomy Carrie wilde Work Phone: Cholecystectomy Zulema Orzec h Colonoscopy Mikhail NILNeto Hysteroscopy Zulema Joya Ligation of varicose vein Otis hollisyosvany Johnson Ronaldo Work Phone: Stripping of vein Zulema batres Total colonoscopy Carrie mancuso Work Phone: Comment on above: over 10 years ago; Plan of Treatment Date Care Activity Detail Author Start: 10-28-2024 End: 10-28-2024 Patient encounter procedure 10/28/2024 10:10 AM EDT Office Visit [facility] [address] [place] [id number] Bonny Meyer MD [address] [facility] [place] [address] [facility] Start: 04-09-2024 End: 04-09-2024 Patient encounter procedure 04/09/2024 9:30 AM EST Office Visit [facility] [address] [place] [id number] Nando Navarrete, [address] [place] [address] [facility] Start: 03-04-2024 End: 03-04-2025 DXA Skeletal system Views for bone density DEXA bone density Imaging Routine Postmenopausal state Expected: 03/04/2024 (Approximate), Expires: 03/04/2025 [facility] Comment on above: Expected: 03/04/2024 (Approximate), Expires: 03/04/2025 Start: 03-04-2024 End: 05-04-2025 MG Breast - bilateral Screening Bilateral screening mammogram Imaging Routine Breast cancer screening by mammogram Expected: 03/04/2024, Expires: 05/04/2025 [facility] Work Phone: Comment on above: Expected: 03/04/2024 , Expires: 05/04/2025 Start: 03-04-2024 End: 03-04-2024 Patient encounter procedure 03/04/2024 10:00 AM EDT Office Visit [facility] [address] [place] [phone] Nando Navarrete DO [address] [place] [address] Arrived [facility] Comment on above: Arrived Start: 01-21-2024 Influenza vaccination Influenz a Vaccine (Season Ended) [facility] Start: 01-18-2024 Patient referral [facility] Work Phone: Start: 08-09-2023 Bacteria identified in Urine by Culture [facility] Start: 08-09-2023 Patient referral [facility] Work Phone: Start: 01-20-2023 COVID-19 Vaccine ( season) COVID-19 Vaccine ( season) [facility] Start: 12-02-2022 FUV, Provider: Bonny Meyer, Status: Pen, Time: 9:40 AM FUV, Provider: Bonny Meyer, Status: Pen, Time: 9:40 AM [facility] 250 DO Work Phone: Start: 2022 Zoster Vaccines (1 o f 2) Zoster Vaccines (1 of 2) [facility] Start: 2012 Screening for malign ant neoplasm of breast Mammogram [facility] Start: 1994 DTaP/Tdap/Td Vaccine s (1 - Tdap) DTaP/Tdap/Td Vaccines (1 - Tdap) [facility] Start: 1993 Screening for malign ant neoplasm of cervix [facility] Start: 1991 Hepatitis B Vaccines (1 of 3 - 19+ 3-dose series) Hepatitis B Vaccines (1 of 3 - 19+ 3-dose series) [facility] Start: 1990 Diabetes mellitus screening Diabetes Screening [facility] Start: 1990 Hepatitis C screening Hepatitis C [facility] Start: 1978 Pneumococcal Vaccine : Pediatrics (0 to 5 Years) and At-Risk Patients (6 to 64 Years) (1 of 2 - PCV) Pneumococcal Vaccine: Pediatrics (0 to 5 Years) and At-Risk Patients (6 to 64 Years) (1 of 2 - PCV) [facility] Start: 1973 MMR Vaccines (1 of 1 - Standard series) MMR Vaccines (1 of 1 - Standard series) [facility] Start: 1972 HIV screening HIV Screening [facility] Start: 1972 Lipid panel Lipid Panel [facility] Start: 1972 Screening for malign ant neoplasm of colon [facility] Start: 1972 Yearly Adult Physical Yearly Adult P [facility] Patient referral [facility] Work Phone: THIN PREP TIS PAP AN D HR HPV DNA THIN PREP TIS PAP AND HR HPV DNA Pathology and Cytology Routine Well woman exam with routine gynecological exam Ordered: 03/04/2024 [facility] Comment on above: Ordered: 03/04/2024 Payers Date Payer Category Payer Private Health Insurance [facility] [employer] [id number] 2021 Unknown 2021 Unknown [id number] 1972 Unknown [id number] 2.16.840.1.083420.3.579.2. 593 1972 Unknown [id number] 2.16.840.1.219878.3.579.2. 593 1972 Unknown [id number] 2.16.840.1.223571.3.579.2. 593 1972 Unknown [id number] 2.16.840.1.847466.3.579.2. 593 1972 Unknown [id number] 2.16.840.1.459403.3.579.2. 593 1972 Unknown [id number] 2.16.840.1.517827.3.579.2. 593 1972 Unknown [id number] 2.16.840.1.477379.3.579.2. 593 1972 Unknown [id number] 2.16.840.1.935679.3.579.2. 593 1972 Unknown [id number] 2.16.840.1.966575.3.579.2. 593 1972 Unknown [id number] 2.16.840.1.477564.3.579.2. 593 1972 Unknown [id number] 2.16.840.1.988670.3.579.2. 593 1972 Unknown [id number] 2.16.840.1.133324.3.579.2. 593 1972 Unknown [id number] 2.16.840.1.509062.3.579.2. 593 1972 Unknown [id number] 2.16.840.1.866591.3.579.2. 593 1972 Unknown [id number] 2.16.840.1.442231.3.579.2. 356 1972 Unknown [id number] 2.16.840.1.175564.3.579.2. 356 1972 Unknown [id number] 2.16.840.1.458584.3.579.2. 1244 1972 Unknown [id number] 2.16.840.1.989374.3.579.2. 727 1972 Unknown [id number] 2.16.840.1.610540.3.579.2. 727 1972 Unknown [id number] 2.16.840.1.405698.3.579.2. 727 1972 Unknown [id number] 2.16.840.1.020443.3.579.2. 727 1972 Unknown [id number] 2.16.840.1.717383.3.579.2. 727 1972 Unknown [id number] 2.16.840.1.506598.3.579.2. 1259 1972 Unknown [id number] 2.16.840.1.137752.3.579.2. 1259 1972 Unknown [id number] 2.16.840.1.664717.3.579.2. 9 1972 Unknown [id number] 2.16.840.1.043540.3.579.2. 9 1972 Unknown [id number] 2.16.840.1.495397.3.579.2. 1259 1972 Unknown [id number] 2.16.840.1.260278.3.579.2. 1259 1959 Unknown [id number] Social History Date Type Detail Facility Unknown if ever smoked [facility] Other Start: 08-08-2023 Sex Assigned At F [facility] Start: 08-08-2023 Caffeine use Caffeine use [facility] 250 DO Work Phone: Comment on above: pop all day; 5-10 cigarettes jessi y; Start: 1970 Sex Assigned At Female F [facility] Start: 10-03-2023 End: 01-30-2024 Tobacco smoking status Heavy tobacco smoker (finding) [facility] Start: 11-03-2023 [facility] Work Phone: History of tobacco use Cigarette Smoker [facility] Work Phone: Start: 11-03-2023 Tobacco use and exposure User of smokeless tobacco [facility] Work Phone: Start: 11-03-2023 Alcoholic beverage intake Lifetime non-drinker (finding) [facility] Work Phone: Start: 11-03-2023 Tobacco Comment vape [facility] Work Phone: Start: 1970 Sex assigned at Not on file [facility] Work Phone: Start: 10-24-2023 End: 11-03-2023 Exposure to SARS-CoV-2 (event) Not sure [facility] Start: 02-14-2024 Tobacco smoking status Light t obacco smoker (finding) [facility] Start: 05-25-2023 [facility] unknown [facility] Functional Status Date Assessment Result Facility 02-14-2024 Functional Status N/A [facility] 10-03-2023 Functional Status N/A [facility] Clinical Notes 09-30-2021 to 03-04-2024 Peace Roblero - 03/04/2024 10:00 AM EDT Note Date & Type Note Facility 03-04-2024 History of Present illness Narrative Reason for Appointment: Patient ID: Fely Meléndez is a 53 y.o. female who presents for Well Women Visit and Pre-op Visit Patient presents today for Pre Op/Annual appointmet. Patient is scheduled to undergo D&C Hysteroscopy, Removal of Polyp, possible Myosure on 03/29/[address] Navarrete at [facility]. MEDICATIONS Current Outpatient Medications Medication Instructions famotidine (PEPCID) 20 mg, Oral, Daily metoprolol succinate XL (TOPROL-XL) 25 mg, Oral, Daily spironolactone (ALDACTONE) 25 mg, Oral, Daily valsartan (DIOVAN) 160 mg, Oral, Daily RT ALLERGIES Allergies Allergen Reactions Cefdinir Unknown Cefuroxime Unknown Ciprofloxacin Unknown Codeine Unknown and Hives Pseudoephedrine Unknown PROBLEMS Active Ambulatory Problems Diagnosis Date Noted Postmenopausal state 01/08/2024 Pelvic pain in female 01/08/2024 Mass of cervix 01/08/2024 Resolved Ambulatory Problems Diagnosis Date Noted No Resolved Ambulatory Problems Past Medical History: Diagnosis Date Thrombosis HISTORY PAST MEDICAL HISTORY SOCIAL HISTORY Past Medical History: Diagnosis Date Thrombosis Social History Tobacco Use Smoking status: Unknown Smokeless tobacco: Not on file Substance Use Topics Alcohol use: Not on file Drug use: Not on file FAMILY HISTORY No family history on file. SURGICAL HISTORY Past Surgical History: Procedure Laterality Date CHOLECYSTECTOMY REVIEW OF SYSTEMS Review of Systems: Review of Systems Constitutional: Negative. HENT: Negative. Eyes: Negative. Respiratory: Negative. Cardiovascular: Negative. Gastrointestinal: Negative. Genitourinary: Positive for pelvic pain and vaginal pain. Musculoskeletal: Negative. Skin: Negative. Neurological: Negative. All other systems reviewed and are negative. Hematological: Negative. Endocrine: Negative. Allergic/Immunologic: Negative. OBJECTIVE Objective: Physical Exam Constitutional: Appearance: Normal appearance. She is well-developed. Genitourinary: Vulva normal. Cervical polyp present. Breasts: Breasts are soft. Right: Normal. Left: Normal. Cardiovascular: Rate and Rhythm: Normal rate and regular rhythm. Pulmonary: Effort: Pulmonary effort is normal. Breath sounds: Normal breath sounds. Abdominal: General: Bowel sounds are normal. There is no distension. Palpations: Abdomen is soft. Tenderness: There is no abdominal tenderness. There is no guarding or rebound. Musculoskeletal: General: No swelling. Normal range of motion. Right lower leg: No edema. Left lower leg: No edema. Neurological: Mental Status: She is alert and oriented to person, place, and time. Skin: General: Skin is warm and dry. Psychiatric: Mood and Affect: Mood normal. Behavior: Behavior normal. Vitals and nursing note reviewed. Exam conducted with a doctorate of chiropractic present. Vitals: Estimated body mass index is 42.05 kg/m as calculated from the following: Height as of 02/05/24: 5' 4 . Weight as of this encounter: 245 lb. BP: (!) 142/94 No LMP recorded. Patient is postmenopausal. ASSESSMENT & PLAN ICD-10-CM 1. Postmenopausal state Z78.0 DEXA bone density 2. Well woman exam with routine gynecological exam Z01.419 THIN PREP TIS PAP AND HR HPV DNA 3. Breast cancer screening by mammogram Z12.31 Bilateral screening mammogram Bilateral screening mammogram 4. Preoperative examination Z01.818 5. Pelvic pain in female R10.2 6. Endometrial polyp N84.0 Annual: Patient presents today for an annual exam. Patient states she is doing well and has no complaints. Pap was obtained without difficulty. Pre Op: Patient is doing well but has complaints of pelvic pain. I have discussed conservative management vs. surgical management with the patient in detail and patient desires surgical management at this time. Patient will undergo D&C Hysteroscopy, Removal of Polyp, possible Myosure on 03/29/2024. Surgical consents were signed, mmc was reviewed, and patient is to proceed to [facility] OR. Follow Up: Patient is to follow up between 1-2 weeks post operative to assess proper healing and recovery from procedure. Documented by She Reyes LPN on behalf of: Nando Navarrete DO documented in this encounter [facility] 01-30-2024 Hospital Discharge instructions Patient Education 01/30/2024 10:50:41 Adrenal Adenoma [...] hormones. Follow these instructions at home: Take pady-dwv-mzjfwem and prescription medicines only as told by [...] any of the signs or symptoms of Durham's syndrome or primary aldosteronism. You need help to stop smoking or using other tobacco products. Summary An adrenal adenoma is a benign tumor of the adrenal gland. Nonfunctional adenomas rarely cause symptoms and do not need to be treated. Functional adenomas produce hormones and may cause symptoms of Burton's syndrome or primary aldosteronism, depending on the [...] provider. Document Revised: 01/05/2021 Document Reviewed: 01/05/2021 [employer] Patient Education 2023 [employer] 01/30/2024 10:50:38 Steps to Quit Smoking [...] require a prescription. You can also purchase xmqa-glj-eoblmrg medicines. Medicines may have nicotine in them [...] and encouragement. Call telephone quitlines, such as 2-687-ZAGZ-NOW, reach out to support groups, or work [...] provider. Document Revised: 04/29/2022 Document Reviewed: 04/29/2022 [employer] Patient Education 2023 [employer]. 01/30/2024 10:50:36 Overactive Bladder, Adult Overactive Bladder, [...] your health care provider. General instructions Take huqx-jky-uhxudio and prescription medicines only as told by [...] provider. Document Revised: 01/25/2021 Document Reviewed: 01/25/2021 [employer] Patient Education 2023 [employer]. 01/30/2024 10:50:34 Hematuria, Adult Hematuria, Adult Hematuria [...] Follow these instructions at home: Medicines Take gcej-jkm-swbmzni and prescription medicines only as told by [...] or the blood stops without treatment. Take frfl-hpc-kxzaqjj and prescription medicines only as told by your health care provider. Drink enough fluid to keep your urine pale yellow. This information is not intended to replace advice given to you by your health care provider. Make sure you discuss any questions you have with your health care provider. Document Revised: 01/06/2021 Document Reviewed: 01/06/2021 [employer] Patient Education 2023 [employer]. 01/30/2024 10:50:34 Dietary Guidelines to Help Prevent [...] include: ?8 oz (237 mL) of milk, wztchet-sxeryxlgkmey-kbogi milk, and calcium-fortifiedfruit juice. Calcium-fortified means that [...] ?Spinach (cooked), rhubarb, beets, sweet potatoes, and French chard. ?Peanuts. ?Potato chips, dutch fries, and baked potatoes with skin on. ?Nuts and nut products. ?Chocolate. If you regularly take a diuretic medicine, make sure to eat at least 1 or 2 servings of fruits or vegetables that are high in potassium each day. These include: ?Avocado. ?Banana. ?[place], prune, carrot, or tomato juice. ?Baked potato. [...] magnesium, fish oil, or vitamin B6. Take xhjh-ihh-uotwgoo and prescription medicines only as told by [...] Casseroles. Pizza. Lasagna. Frozen meals. Potato chips. Australian fries. The items listed above may not [...] provider. Document Revised: 08/18/2022 Document Reviewed: 08/18/2022 [employer] Patient Education 2023 [employer]. Follow Up Care 01/08/2024 16:41:10 With:JOHNNA Joya APRN, Zulema Lema, GYPSY, URL Address: When: Unknown Comments:3-4 mos [facility] 01-30-2024 Note Patient Education Nephrology [...] ? 8 oz (237 mL) of milk, jtlgrlo-eirxcyzzcakz-xjgsu milk, and calcium-fortifiedfruit juice. Calcium-fortified means that [...] Spinach (cooked), rhubarb, beets, sweet potatoes, and French chard. ? Peanuts. ? Potato chips, dutch fries, and baked potatoes with skin on. ? Nuts and nut products. ? Chocolate. ? If you regularly take a diuretic medicine, make sure to eat at least 1 or 2 servings of fruits or vegetables that are high in potassium each day. These include: ? Avocado. ? Banana. ? [place], prune, carrot, or tomato juice. ? Baked [...] fish oil, or vitamin B6. ? Take qebx-fmg-qlbdtqu and prescription medicines only as told by your health care provider. These include suppleme (more content not included)... [facility] 11-07-2023 Evaluation + Plan note Extrac galileo from: Title: Clinic [facility] Note Author:Francis HERNANDEZ, Gemma Lee . Date:11/07/23 Impression and Plan Assessment and Plan: Diagnosis: Adrenal adenoma (ENQ94-JI D35.00, Working, Medical), Gross hematuria (YUB27-UG R31.0, Discharge, Medical), OAB (overactive bladder) (ZGQ09-AB N32.81, Discharge, Medical), TEAGAN (stress urinary incontinence, female) (GCQ92-QC N39.3, Working, Medical). 53 year old female [...] AM Scheduled Provider:JOHNNA Joya APRN, [place] [facility] Location:[facility] Appointment Type:URO Office Visit Diagnostic Tests Pending * Urine Cytology ([facility]) 11/07/23 [facility]06-18-2024 Hospital Discharge instructions Patient Education 11/07/2023 [...] with PVR With:Gemma Blanco Address:Unknown When: Unknown [facility]06-18-2024 Note [id number] NoteCystoscopy ? Voiding after the procedure: [...] if you have a fever over 100 degrees.[facility] 11-03-2023 Instructions* Patient Instructions* Sharda Fontaine LPN [...] time of your visit. [facility] Work Phone: [phone]) 102-444105-17-2024 NoteChief Complaint referral HPI Staff Referral for dysuria, left flank pain and hematuria by Dr. Talbot. Pt was seen in [facility] ED 08/11/23 for urinary frequency and [...] with voice recognition artificial intelligence software, specifically [employer], Dragon Express and or Dragon Ambient Experience. Substitutions may have occurred due to the [...] work, dexamethasone testing. 3. Dysuria (R30.0: Dysuria) [facility] ER 08/11/2023-urinary frequency, low back pain [...] fluid intake so jah (more content not included)...[facility] CenterComment on above:Result Comment: Electronically Signed By: JOHNNA Joya APRN, [place] [facility]\.br\Date and Time Signed: 10/06/23 12:54 [id number] Evaluation + Plan note Diagnostic Tests Pending * Cortisol 10/03/23 * Lab Miscellaneous-LC 10/03/23 * Lab Miscellaneous-LC 10/03/23 [facility] 01-10-2024 Evaluation note* Encounter Date Diagnosis Assessment Notes Treatment Notes Treatment Clinical Notes May, Pain, joint, knee, left (ICD-10 - M25.562) Pt declines PT at this time. Will attempt MRI. She declines Ortho referral at this time as well. MRI order sent to [facility]. work note given for restrictions as she is unable to climb a lot of stairs due to pain. May, Uncontrolled hypertension (ICD-10 - I10) Reviewed labs w pt. No hypokalemia or other electrolyte abnormalities noted in Apr. [facility] Other 12-04-2023 Evaluation note* Encounter Date Diagnosis Assessment Notes Treatment Notes Treatment Clinical Notes Apr, Essential hypertension (ICD-10 - I10) [facility] Other 11-30-2023 Evaluation note* Encounter Date Diagnosis Assessment Notes Treatment Notes Treatment Clinical Notes Mar, Radicular syndrome of left leg (ICD-10 - M54.10) Agrees to imaging to r/o DDD or lumbar fracture. Mar, Leg pain, left (ICD-10 - M79.605) Discussed concern for DVT. US scheduled for today. [facility] Other 11-07-2023 Evaluation note* Encounter Date Diagnosis [...] verbalized understanding and agreement with treatment plan. [facility] Other 10-03-2023 Evaluation note* Encounter Date Diagnosis [...] Advised she limit NSAIDs and added omeprazole [facility] Other 03-30-2023 Evaluation note* Encounter Date Diagnosis Assessment Notes Treatment Notes Treatment Clinical Notes Jul, Uncontrolled hypertension (ICD-10 - I10) [facility] Other 03-17-2023 Evaluation note* Encounter Date Diagnosis Assessment Notes Treatment Notes Treatment Clinical Notes Jul, Dysuria (ICD-10 - R30.0) [place] [employer] Other [id number] NotePROCEDURE: XR ANKLE LT MIN 3 V, [...] Electronically authenticated by: VLADIMIR PALACIOS Date: 2022-05-06 07:13[facility]12-16-2022 NotePROCEDURE: XR ANKLE LT MIN 3 [...] Electronically authenticated by: VLADIMIR PALACIOS Date: 2022-05-06 07:13[facility]05-12-2022 NotePROCEDURE: XR ELBOW LT MIN 3 VIEWS HISTORY: Pain of left elbow joint , acute; limited range of motion COMPARISON: None. FINDINGS: BONES:No fracture, acute abnormality, or significant arthropathy. SOFT TISSUES:No visible soft tissue swelling. EFFUSION:None visible. OTHER: Negative. IMPRESSION: 1. Normal examination. Electronically authenticated by: VLADIMIR PALACIOS Date: 2021-09-30 16:50[facility] Hospital[facility] Narrative - ReportedFELY MELÉNDEZ is being seen for a consultation for blood pressure issues.-[facility] DO Work Phone: Evaluation + Plan note Future Appointments Appointment Date:01/30/2024 09:30:00 AM Scheduled Provider:JOHNNA Joya APRN, [place] Location:[facility] Appointment Type:URO Office Visit [facility] evaluation + Plan note Future Appointments Appointment Date:02/14/2024 03:40:00 PM Scheduled Provider:Mikhail VENEGAS MD Location:[facility] Appointment Type:[facility] [address] [facility] evaluation noteNo InformationNorti3 membrane Other Evaluation noteNo assessment information available [facility] Work Phone: Evaluation note* Diagnosis Onset Date Resolution Status Dysuria acute Hematuria acute Left flank pain acute [facility] Work Phone: Evaluation note* Diagnosis Palpitations- Primary Essential hypertension Unspecified essential hypertension Shortness of breath BMI 40.0-44.9, adult (Multi) Current smoker documented in this encounter [facility] Work Phone: Evaluation note* Diagnosis Onset Date Resolution Status Rectal bleeding acute [facility] Work Phone: Evaluation note* Diagnosis Postmenopausal state Asymptomatic postmenopausal status (age-related) (natural) Well woman exam with routine gynecological exam Routine gynecological examination Breast cancer screening by mammogram Preoperative examination Unspecified pre-operative examination Pelvic pain in female Unspecified symptom associated with female genital organs Endometrial polyp Polyp of corpus uteri documented in this encounter [facility] N[facility]ative - Reported* Type Description Date [...] 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 I suggested a trial of [...] diet * 6. Follow-up in 4 months -[facility] DO Work Phone: History of [...] improving with reinstituting a smaller dose of beta-ojsefina * 2. Hypertension seem to be better [...] diet * 5. Follow-up in 4 months [facility] 250 DO Work Phone: Hospital course Narrative No data available for this section [facility] Hospital Discharge instructionsAmbulatory Orders* Referral to Urology Time Frame: 08/09/23, Location: None [facility] Work Phone: Hospital Discharge instructions No data available for this section [facility] Hospital Discharge instructionsAmbulatory Orders* Referral to General Surgery Time Frame: 01/18/24, Location: None [facility] Work Phone: Progress note No data available for this section [facility] reason for referral (narrative)* Consultation (Routine) - Authorized Specialty Diagnoses / Procedures Referred By Niko sousa Referred To Contact Cardiology Diagnoses Essential hypertension Procedures Follow Up In Cardiology Bonny Meyer MD [address] [facility] [address], [facility] [address] [place] [address] Bonny Meyer MD [address] [facility] [address], [facility] [address] [place] [address] Referral ID Status Reason Start Date Expiration Date V isits Requested Visits Authorized [id number] Authorized 11/03/2023 11/02/2024 1 1 [facility] Work Phone: Summary Purpose Family History Unknown [...] No January 12, 2024 2:16pm Chief Complaint FELY MELÉNDEZ is being seen for a 4 month follow-up of. Reason for Referral Reason B hands aching, cant make a fist w R hand, chronic pain Diagnosis 1 Dupuytren's contract ure of right hand (M72.0) Referral Organization [facility] Cale vargas Referring Provider First Name Carrie Referring Provider Last Name Ronaldo Referring Provider Specialty Family [facility] Referred Organization [facility] Referred Provider Deisi Branch Referred Address [address],[place],[address] Referred Provider Specialty Orthopedic S urgery Referral [...] DATE CREATED AUTHOR AUTHOR'S ORGANIZ ATION 12/03/2022 [facility] DATE CREATED AUTHOR AUTHOR'S ORGANIZ ATION 12/03/2022 [employer] DATE CREATED AUTHOR AUTHOR'S ORGANIZ ATION 08/12/2023 [facility] DATE CREATED AUTHOR AUTHOR'S ORGANIZ ATION 11/04/2023 [facility] DATE CREATED AUTHOR AUTHOR'S ORGANIZ ATION 01/31/2024 [facility] DATE CREATED AUTHOR AUTHOR'S ORGANIZ ATION 02/13/2024 [facility] DATE CREATED AUTHOR AUTHOR'S ORGANIZ ATION 03/05/2024 [facility] Special[facility] EPIC REASON FOR VISIT (unrecogniz ed section and content) Reason Comments Follow-up overdue Reason Comments Well Women Visit Pre-op Visit Care Teams (unrecognized sec tion and content) [...] August 09, 2023 End: August 09, 2023 Ship Scaler Relationship Specialty Start Date End Date Carrie Talbot MD [address] [place] [address] [address] [place] [id number] PCP - General 08/11/22 Team Status: Inactive Member Role Status Dates Carrie Talbot MD Primary Care Provide r, Attending Provider Active Start: January 18, 2024 End: January 18, 2024 Ship Scaler Relationship Specialty Start Date End Date Carrie Talbot MD [address] [place] [address] PCP - General Family Medicine 05/25/23 Ship Scaler Relationship Specialty Start Date End Date Carrie Talbot MD [address] [place] [id number] PCP - General Family Medicine 05/25/23 Goals (unrecognized section and content) Goals may [...] BE BASED ON THE PRIMARY CLINICAL RECORDS. [employer] provides no warranty or guarantee of the accuracy or completeness of information in this document.
--- NOTE | 2024-03-08 11:50 | XR_ITS ---
The [address] [address] Patient Name: HENRRY MELÉNDEZ MRN: [id number] date: 1970 Sex: F Assigned Patient Location: SURGOUT [facility] Accession/Order Number: [id number] Exam Date: 03/08/2024 12:03 Report Date: 03/08/2024 17:41 At the request of: KATE LOGAN Procedure: XR chest 2V EXAM: XR chest 2V HISTORY: Preop exam COMPARISON: 06/09/2022 TECHNIQUE: Upright PA and lateral chest x-ray FINDINGS: The heart is not enlarged and the vasculature is not distended. No acute infiltrate, effusion or pneumothorax is identified. The osseous structures are grossly intact. XR/XR chest 2V IMPRESSION: No acute infiltrate or evidence of cardiac decompensation. The overall appearance of the chest has not changed significantly. Electronically authenticated by: RUDOLPH WILLIS Date: 03/08/2024 17:41
[2024-03-08 13:14] LABS: Anion Gap 15.2; BUN Creatinine Ratio 14.1; Calcium 9.3 mg/dL (8.5-10.1); Chloride 106 mmol/L (98-107); Estimated GFR (African America >60 (>=60 mL/min/1.73m^2); Estimated GFR (Non-African Ame >60 (>=60 mL/min/1.73m^2); Glucose 84 mg/dL (74-106); Potassium 4.2 mmol/L (3.5-5.1); Sodium 141 mmol/L (136-145)
== END 2024-03-08 11:12 | disposition home or self-care (01) ==
LOC: PST 11:12
PROVIDERS: PCP Family Medicine; Visit Provider Obstetrics & Gynecology
DX: Z01.810 Encounter for preprocedural cardiovascular examination (principal); Z01.812 Encounter for preprocedural laboratory examination; N84.0 Polyp of corpus uteri; R10.2 Pelvic and perineal pain; Z78.0 Asymptomatic menopausal state
CPT/HCPCS: 36415; 71046; 80048; 93005

== ENCOUNTER 2024-03-08 11:15 | Outpatient (OUT) | payer OTHER, SELFPAY ==
--- OUTSIDE RECORDS SUMMARY | 2024-03-08 11:17 | XMS_ITS | CCD ---
Author Organization [facility] Care Team Providers Care Glue Maker Name Role Phone SHAUNA, DR JUAN CARLOS [...] Attending Unavaila MD Carrie Jules Attending Provider [phone] Carrie Talbot Admitting Unavailable Carrie Talbot Attending Unavailable CARRIE TALBOT Primary Care Physician Carrie Talbot MD Primary Care Provider BONNY MEYER Attending Unavailable CARRIE TALBOT Primary Care Unavailable Orpearl Zulema X Attending Unavailable Orzech Zulema X Attending Unavailable CARIRE TALBOT Referring Unavailable Gemma Blanco Attending Unavailable Gemma Blanco Referring Unavailable Gemma Blanco Admitting Unavailable OrZulema kang X Attending Unavailable Mikhail VENEGAS Attending Unavailable CARRIE TALBOT Referring Unavailable HEMZOLTAN FUENTES Attending Unavailable HEMZOLTAN FUENTES Referring Unavailable NIECY NAVARRETEY Attending Unavailable NIECY NAVARRETEY Attending Unavailable NIECY NAVARRETEY Attending Unavailable NANDO NAVARRETE Attending Unavailable Carrie Talbot MD Primary Care Provider Allergies Allergy Classification Reported Allergen(s) Allergy Type Date of Onset Reaction(s) Facility Cephalosporins (antibiotic) (1 source) cefdinir Drug Allergy 08-08-19 24 Unknown [facility] Opioid Agonists (1 source) Codeine Drug Allergy 05-25-19 24 Hives, Unknown [facility] Work Phone: Quinolones (antibiotic) (1 source) Ciprofloxacin Drug Allergy 11-03-19 Other [facility] (8 sources) Cefuroxime Drug Allergy 05-25-19 Unknown [facility] Healthcare (20 sources) Codeine; Translations: [CODEINE] Drug Allergy 05-25-19 Weal (disorder), Unknown, [facility] (8 sources) Pseudoephedrine Drug Allergy 05-25-19 24 Unknown [email or web address] Other (2 sources) cefdinir; Translations: [cefdinir] Drug Allergy 08-08-19 Other [facility] 3 Repository (6 sources) Ceftin *CEPHALOSPORINS* Propensity to adverse reactions 02-12-20 13 Unknown [email or web address] Other (6 sources) Pseudoephedrine HCl *NASAL AGENTS - SYSTEMIC AND T Propensity to adverse reactions 02-12-20 13 Unknown [email or web address] Other (4 sources) Cephalosporins (Antibiotic) Allergy to substance 05-31-19 24 [facility] (4 sources) Pseudoephedrine HCl *NASAL AGE Allergy to substance 05-31-19 [facility] (7 sources) Acetaminophen / Dextromethorphan / Doxylamine / Pseudoephedrine; Translations: [APAP/dextromethorp dwyer/doxylamine/PSE] Drug Allergy Unknown (qualifier value) [facility] (11 sources) Ciprofloxacin; Translations: [ciprofloxacin] Drug Allergy 11-03-19 Unknown (qualifier value), Weal (disorder), Unknown [facility] (2 sources) Acetaminophen; Translations: [acetaminophen] Drug Allergy [facility] Repository (3 sources) cefdinir Drug Allergy 08-08-19 Unknown [facility] Healthcare Medications Current Medications Medication [...] Coronary arteriosclerosis; Translations: [Atherosclerotic heart disease of redding coronary artery without angina pectoris] 09-28-2023 Chronic [...] 2 Chronic Other aftercare (1 source) Other rn long term care (current) drug therapy; Translations: [OTH PENITENTIARY CURRENT DRUG THERAPY] Onset: 3 Episodic Other [...] EDT With: RUBI HERNANDEZ, Mikhail Stevens Where: [facility] [address], [address], [place] [id number]- Medications What How Much When Why Instructions [...] you for choosing us for your care. [facility] Reminderson 01-30-2024 Reminders Reminders From: Yvette Hilliard To: EU - Administrative; Sent: 01/30/2024 10:26:31 EDT Show up: 03/22/2024 10:26:00 EDT Subject: Ambulatory Reminder Due Date/Time: 05/31/2024 10:26:00 EST Reminder/Recall Patient needs scheduled with AO for a 4M f/u, due back in May of 2024 [facility] Urology Office/Clinic Noteon 01-30-2024 Urology Office/Clinic Note [...] with voice recognition artificial intelligence software, specifically [employer] 24/[employer], Stemgent and or Quick2LAUNCH. Substitutions may have occurred due to the [...] any recent stone passing. [1] CTU at [facility] 11/01/2023 without abnormality explain patient's [...] unspecified, uncomplicated) Increased risk of CA Orders: 80273 Measure Post Void residual urine and/or bladder capacity by US- non-imaging Urnls Dip Stick Auto w/o Microscopy POC 55985 Follow-up With When Contact Information JOHNNA Joya [...] tab(s), Oral, (more content not included)... Normal [facility] Comment on above: Result Comment: Elec tronically Signed By: JOHNNA Joya APRN, Zulema Lema\.br\Date and Time Signed: 01/30/24 10:50 EDT Urine Cytology ([facility])on 0 11-12-2023 Microscopic exam Cytology (U) [Interp] Diagnosis Info Invalid Interpretation Code [facility] Comment on above: Result Comment: A:Ur ine,Cystoscopy:Cystoscopy Interpretation - MicroScopic Description - Adequacy - Gross Description Site ID:A color Light Yellow fixative Alcohol Specimen designated Cystoscopy received in alcohol preservative and labeled with the patient?s name, consists of 100ml clear light yellow fluid. Electronically signed by : on: 11/12/2023 10:13:54 Performed By: #### 1 [id number] #### [facility] [address] [place] [id number] Coding Summary.on 11-09-2023 Coding Summary. FGCKMdzs16VWx1xLd+PG hl YWQ+QK6SLAMiL52mvDKhjY 1iP6HURMmKFrwsFLKCVVaC JkXtvgIoXT1kgYFiRMSw IC8+SO6hTMMaObseqVVuu0 U0gZO3C68ylm0uOFaktHP6 UQOyAkCmxqyfj3rbkJt4IQ cuNmluOyBt SEIuaI38WLV5eI23Wv84lM NwpIRjg0yycFl0SmRjYWLp EQE0mHjiHHxnr1QfUFPqQ3 4naMOyq9Y0 BOKwnXminOPgPaDxwQJ5wE 3mKDmsawxpv7rosuozWfj2 eg00qAPob7A5zXI6P7Lowt Q3KOAdxNWc IcsoyMXBhX1lnjozs5nefb elYkGdSAClPUs8NIu5NTBg fAvbFzKqKW25CSK4ONMnqc ZdS9WtHXGb vFssQnS1b4I8Pz6IY5BSNz kzH9KCMHAVJCjmaZG+PC90 ju49E5ZuIsrxVzt8JUQdYZ X5cZB0nG1f BSWmYBjka2Y8cMI7T9Szkl Ungv6nc0arYUCaSTvsD07z xMEif2D7MFPjsMK0XTUagT clFyBneA49 Oyc+JTFoeGbwm3EpJfepy6 hrs5zuyKr9GicbNAPofrJr oWqmKYF9e2UkLj7bHBUrjC X9zLJ2cL8w IoWqOdB1HBmmZ252SyJzcG SeYsfcG41mH6FqyOU+PHRy Hjb9YMEdvDzbDD4zJ4LwWV RpbmctbGVm fDejNY6sRESipzfyMRQmcU 1sYGMzY3k1UiYxUpX7AQiw W3NaLSVovqwrNo16jH3qNj OeHtI6FPvs K6TmzbT7GTFiiSIjJEzgQL D2U68yo7Q8PRPfDGRlYBD8 eJC9gQ7mgSdxmwnkfNWqsQ sgdmVydGlj LKidXVvfW484NPMepVfjCz NvZGluZyBEYXRlOiAgMDYv MjAvMjAyNDwvdGQ+PHRkIH P3pGixCRXj yWLbNItnEp7dcViarSaaHK 4fBQUijqtmJJHcwX0eGDUg yOHdtQhjHX2hCGXlgahdz4 39HiZeGGB7 TYFhzSTwT0YifV7vRcNwDF OtOPUoB0NevBIqTQwdP814 ALwhJxK1SNBjrkCdH8UtSI FsaWduOiB0 m9S8Cp7Ow8IlqtdpG6AmaY RoCgBcGwndCQy6M5FwAvvc dHI+TT88IJZiMI95NMo5LE Z5hUkgKVsj JUNpF2HykB4gDfFmEHXhUI RkOyc+PHRhYmxlIHdpZHRo ORboKPInMfBwkYemOP1aBp 9yZGVyLWNv xXytrDRyWiCdp9xoVYXjTO raKR9joDkjS8VzfSS3NYGb o8v6Jo37U75xK7OtwJI+PG LwsGS0bGL4 tQ5kYtHyDcC1VKtvW812Oj FpcVCnNnile0feb9eipGn3 EtS1VOOhgjSkuZvgWUV4k7 SuHl99M97d IHdpZHRoPSIxNSUiIHZhbG gsgt8ecZ5lZl8+PGNvbCB3 mTC3iP3uChMsBdI9ETppK3 49InRvcCIv Wdzxx0gth2vrwFk9KfBvIO IymwAgoIuuJEB4o5AhKt89 Z0UbbZyfy1NmLdy5lf00nR Rpy4G5wPP8 K6UtPLEjdyofzDCekTszHM 5tMMEjkbgqOSVgbK9xPJBl U9u8QsPnDgH6YOiwM1Pjhh E8HHSwtSGq KYIihKLTcG4fxfjed1abex bgJmLvECIqYFr5BLx6EKIo rZesSxVjTGR3LkM4NYG2lC PsvC9cgRuu myqgrC6zTsc+BWJ6nXFmiD CGFT1gEjwfmJW+PHRkIHN0 pNivPZulQJKmbG8qTVPwS4 z3VvVhDjH2 TQolX9PbfiF6MRFtdKCxON RpoVFYiH8vyxymj9xoitwa KcBrCIXzHVa8JYj7KFOwsF duOiBsZWZ0 AhF8BNB2sMOgzO6nvGokjx zqmK4pDuc+QmlydGggRGF0 FLb2H9KwYja9NYAghRfxMC 0ncGFkZGlu La8okObfkKizVA8pLSSdzc vmh093SfTni9brOHUrtVSg GSzxFZR2R42hb3M7ZHMzAQ JpVLZ1rNG6 kJ3mfPnlzbhwmVTqlKzzud YgpScmIXgsRCwtN276IVSx hKzoRkUnIXx0I6CpOno6NF PllKifCQ2d xXRfWEndZk4svYobsVqbDM 2dBSLzieyno074KqRcy0qw CANftBKsXOnsBSR8Y69gf8 D9OWSrYHRh UWP8iDC2gP2spDcxiomtxT VmdDsgdmVydGljYWwtYWxp G957NVSrrDxoVcMugWr4T7 YuPhx0FCSc gCqrMS5hnPPrDXvgYx1gtU fvnEnoGV1dLCBmmglic963 QhAls4taVAKdqJOrCXfeSW Q9B75ay1M5 PQTkGGRsINK4gNR2tP2hlE lnbjogbGVmdDsgdmVydGlj WPwrPLteQ976NVNfbJkdPv BhdGllbnQg GJtbYTl6I2PhYlsxhZI+PC 10LBJrJS54qLMeyEUwh8yn vGq3BsJbHVPaJUR6mDoaQM wmk7MpCWAi C12rsAQra8Z8OUGjdOcvzQ WiRgRvnGR6jO3qFUwynvnh g0jpexfgYejpi3kkam81fK 26G35wADhj ZHRoPSIzMCUiIHZhbGlnbj 6pjK1lHi5+TRDtrGI4nSR3 rI4yJTEuPfH7YDstC007Wx RvcCIvPjxj a4stf8nbmZa3VoD4LJZhvg JlsBafTQI2x9DeSs31Z76h IHdpZHRoPSIyMCUiIHZhbG kgza1xwP8y Ii8+ZECsrSR7mWC2zE8iLq GgPwM3WIznB802DtRpzWDq FbqwT61uH8JwcMG+PHRyPj u5KIHkxYgc SB8jbNWwRWvxLr6uNQX9Fa EjYdEeSGaaC8SjHJJapztd mbmnbML3OZJaJLUrvI94Mc 9udDogMTBw nQWTrW0vitqpo0cnzupzRa UyEGNtQEq4JDw7AJIlnVnk QzLfNNZ2BuT8WQX1pUUyiV 1hbGlnbjog vC8aP7SdASRbpoghOo02bU 4oRbSaRiZ0IPfmIne+UEhJ YNTSGBFBSDBSKT4AKH29HM 42eKUes8Q8 hGV0D6MeJMVflnuxrmtwpM D2PQPxPRBxzB45eVHaKStm Mx4kq7O0m785QAKhZSEytW 03Uh9gnTjr BKWrzUUJfL6zbvliq2ryby qwQbAiITRzPHm4MIc4IODe mLlqYcVbPXY5HdR5AAQ6qW WpnI3tdByw llokpV4dAio+MTIvMjcvMT w8LslktIO+QJKtNUP0rIsm NJzeEPYliN1mZJZiG4s3Vt XvAfP1RQny R9RnRCImfpuwCa06hQ1qMj NmEoZ2VAluL6FfgkF3IQBw jYKlMYjzGPP4I61rt8T8VL MwMDAwMDA7 oVJ7pO6cyQgndmwiySUygD apasGwdHjrEGtvGVfeA044 IHRvcDsnPjUxIFllYXJzPC 72GV34jAAe i1D4vYW8U9FmEZRhyuoivm umePH7VCEhVVTvcQ45jPRj URulMj4ag3A9r910IENzHF IvwL41Un9a dHvaXSPggIBZkI2ogqiqs9 dpglygOtAhUXZrEVr4IDi3 YWFhyKeiSuLkGKX2WsH2KM V3iBZonN8a rSnoryqfwQ4oBns+RmVtYW tfOG78AW85cZLqr8V8iBP4 T7YdRHQyohyqinduoFI6FC QlBNYwnT30 kURiKKpfHv0ap1R1z607ER BrTACshA98Lh6yeNlmZSWw eEXUmH1yelifw4uyddrzYg AwMDAwMDt0 CRd7QWNgvInkPvUrNMM2Nb D2GIK3xOYrkX6mxYbvnnqu eQ3yJej+Q8C2jYJ5fLAbvL wvdGQ+PC90 xm96K0FsIzymExn1KPJxIZ T1tMV5rU2uPEWoQVxrp3W6 bTK3B7TwomPneh7ub2amSF FpZGdfB73g oLXgh6J4JOPzrHX9XFHiaU ivGiCmgC51Rbp+PGNvbGdy l6UlGuvjh7brc1jfmAc5Tg MwJSIgdmFs oReqOJL9a7TtGd98E37nHM dpZHRoPSIzMCUiIHZhbGln ek3piL3pSd8+TMUndRY7iX G6hH0zKeXs AqC1NGnjM036ThGtgGLzRv iwl7xdk7krkPq9CiNjYKXt wxWzaEszTFE8w3WbJd54W2 HgaZplt9Kn Cow0pu35pUKxx2E6dAW9O5 GwZHKukawsrYPzwYmzOH7a PMFfexjrXITanO2pGGXyM2 k8BbBhUyT7 MFdpD1QggkI6UHYofLEqBU EdaSCQmT8uwywbp5gnvsfp KeXoHIMvLOj9KXp5JMUrxM duOiBsZWZ0 ZuV1BNH4vWNmvL3iaHcxaz pfsC7sUfn+VQd6y4pciNBu XI2wzOC5GC10KD26pJArg3 B1qCE6C0Ty SIGkanttejjbvSX6YQQeSR RloZ34Nj6vfLouWl7yXFYq TDH9EARioZMxD2JnjG8hGh AjMDAwMDAw Y1KhpSYnUUgbP466FMvePv R0KLDtuaUhZ7PaQPRjaKgf YuG6f7V4Dh0KXR45PZ96JR 59yHLii8E0 lRE9H4VaRWXxshicyjnozA M3BLUhRMDfqB71Jf9eqMdb Fu5oZZYiBKA9ZCFmvHKgM0 CtiK0mRhPu CRSwULDpX2HvrEBeHSqmM4 05JAseNiQ6YBTehtDzN8Gl WKAygKkeHzQ5j5F7Tp2FLb 87II75VA25 lMAkb4E4uOY2F3IpWEHjgb fjddmiiQE3LMOnCELlqQ30 Kl5ohAucYt5oAOEcCXV3WQ DhuBAdQ6Mi uJ8eUrSxUDGmMUKfM4WmeA ZrXWbgH248NMquRoU1TGHf zmYfZ3GrFEWiwSpwOjR2i6 W8Pi9CTUhf hyd2C7DsVsjajLN+PC90YW XzXW16iXGcqGBis5jwkAo3 VqPtRNGzXKA7sPlaCBpen9 XaKVCwV60d nSLin6I5NMLtz (more content not included)... Normal [facility] Consent for Procedure/Surger yon 11-07-2023 Consent for Procedure/Surgery [id number] 0TIFF [facility] Consent for Treatmenton 10-20 Consent for Treatment [id number]#1.0 0TIFF [facility] Inpatient Patient Summaryon 11-07-2023 Inpatient Patient Summary [place] [id number] Clinical Summary Person Information Name: FELY MELÉNDEZ Age: 53 Years : 1970 Sex: Female PCP: CARRIE TALBOT MD Marital Status: Race: White Ethnicity: Non- or Language: Puerto Rican Visit Id: Visit Reason: GROSS HEMATURIA Speciality: Acuity: Enc Type: Outpatient Med Service: Surgery Arrival: 11/07/2023 09:24:15 Discharge: Dispo Type: Address: [address] [place] [id number] Provider Notes: Diagnosis: Gross hematuria; OAB (overactive [...] Information: EU - Cystoscopy Discharge Instructions (CUSTOM) [facility] IntraOperative Documentson 0 11-07-2023 IntraOperative Documents [id number] 0TIFF [facility] Lab Reportson 11-07-2023 Lab Reports [id number]#1.0 0TIFF [facility] Main OR Intraoperative Recor don 11-07-2023 Main OR Intraoperative Record IntraOp Document Type FTURO Summary Primary Physician: Gemma Blanco MD Finalized Date/Time: 11/07/23 10:45:52 Pt. Name: FELY MELÉNDEZ Rad/Sex: 1970 Female Med Rec #: [id number] Physician: Gemma Blanco MD Financial #: [id number] Pt. Type: O Room/Bed: / Admit/Disch: 11/07/23 [...] Evi Pitt Role Performed Surgeon - Primary Community Engagement Representative - Primary Scrub - Primary Time In [...] Lantigua RN 11/07/23 10:45 Normal Garcia [facility] Main OR Preoperative Recordo n 11-07-2023 Main OR Preoperative Record Holding Area Document Type FTURO Summary Primary Physician: Gemma Blanco MD Finalized Date/Time: 11/07/23 09:53:28 Pt. Name: FELY MELÉNDEZ /Sex: 1970 Female Med Rec #: [id number] Physician: Gemma Blanco MD Financial #: [id number] Pt. Type: O Room/Bed: / Admit/Disch: 11/07/23 [...] JARETT Sanchez RN, Ruthann 11/07/23 09:53 Normal [facility] Operative Reporton Operative Report Patient: [...] OAB and adrenal adenoma workup . Normal [facility] Comment on above: Result Comment: Elec tronically Signed By: Gemma Blanco MD\.br\Date and Time Signed: 11/07/23 10:42 EDT Outpatient Surgery Discharge Instructionon 11-07-2023 Outpatient Surgery Discharge Instruction [id number] 0TIFF Normal [facility] Outpatient Surgery Discharge Instruction [place] [id number] Patient Discharge Instructions PERSON INFORMATION Name: FELY [...] to serve you. Thank you for choosing [facility] Normal [facility] Progress Note-Physicianon Progress Note-Physician Patient: [...] day, # 1 tab(s), Refills(s) 0, [facility], 163, cm, 10/03/23 10:16:00 EDT, Height/Length Dosing, 113.5, kg, 10/03/23 10:16:00 EDT, Weight Dosing... mirabegron 50 mg oral tablet, extended release: 50 mg = 1 tab(s), Oral, Daily, # 30 tab(s), Refills(s) 11, [facility], 163, cm, 10/03/23 10:16:00 EDT, Height/Length Dosing, 113.5, kg, 10/03/23 10:16:00 EDT, Weight Dosing Documented Medications Documented Pepcid AC: 20 mg, Oral, Once losartan 50 mg Tab: 50 mg = 1 tab(s) metoprolol 25 mg ER Tab: 25 mg = 1 tab(s), Oral, Daily spironolactone 25 mg Tab: 25 mg = 1 tab(s) Impression and Plan Assessment and Plan: Diagnosis: Adrenal adenoma (IWO89-EJ D35.00, Working, Medical), Gross hematuria (XRS55-QY R31.0, Discharge, Medical), OAB (overactive bladder) (DVC66-SB N32.81, Discharge, Medical), TEAGAN (stress urinary incontinence, female) (BJP48-QW N39.3, Working, Medical). 53 year old female [...] cysto neg -Follow up urine cytology Normal [facility] Comment on above: Result Comment: Elec tronically Signed By: Francis HERNANDEZ, Gemma Siegel\.br\Date and Time Signed: 11/07/23 10:46 EDT RAD - CT Reporton 11-07-2023 RAD - CT Report [id number] TIFF Normal [facility] Urine Cytology ([facility])on 0 11-07-2023 Method of Extraction Cystoscopy Normal [facility] Comment on above: Performed By: #### 1 [id number] #### [facility] [address] Number of Jars 1 Invalid Interpretation Code [facility] Comment on above: Performed By: #### 1 [id number] #### [facility] [address] Specimen Cystoscopy Normal [facility] Comment on above: Performed By: #### 1 [id number] #### [facility] [address] Type of Service Technical Only Normal [facility] Comment on above: Performed By: #### 1 [id number] #### [facility] [address] [place] [address] Lab Reportson 10-25-2023 Lab Reports [id number]#1.0 0TIFF Normal [facility] Lab Reportson 10-17-2023 Lab Reports [id number] 0TIFF Normal [facility] Patient Educationon 10-06-19 Patient Education [...] these instructions at home: Medicines ? Take aihm-tji-wjcaffu and prescription medicines only as told by [...] provider. Document Revised: 12/18/2020 Document Reviewed: 12/18/2020 [employer] Patient Education ? 2022 Yobble. Hematuria, Adult Hematuria is blood in the [...] these instructions at home: Medicines ? Take cnbq-uxb-mmaakig and prescription medicines only as told by [...] follow y (more content not included)... Normal [facility] Formson 10-04-2023 Forms [id number]#1. 00TIFF [facility] Lab Reportson 10-04-2023 Lab Reports [id number]#1.0 0TIFF [facility] Ambulatory Visit Summaryon 0 10-03-2023 Ambulatory Visit [...] Pharmacy Information [facility]: [address], [place] [id number] [phone] Allergies Cipro (Unknown) Nyquil Cold Medicine (Unknown) [...] for choosing us for your care. Normal [facility] ED Note-Physicianon 08-16-19 ED Note-Physician [id number]#1.0 0TIFF Normal [facility] Urine Cultureon 08-09-2023 Bacteria identified Cx Nom (U) 75,000 colonies/ml mixed bacterial skin contaminants 2 Days PERFORMED BY: [place] [address] PATHOLOGIST ENGINE[employer]ING [employer] ISABELA MUÑOZ M.D. [facility] Comment on above: Performed By: #### C UU #### [address] Laboratory - Chemistry and C hemistry - challengeon 08-03-2023 Bilirubin Ql (U) Negative [facility] Glucose (U) [Mass/Vol] Negative [facility] Ketones Ql (U) Negative [facility] pH (U) 5.0 [pH] [facility] Specific gravity (U) [Rel density] 1.015 [facility] Urobilinogen (U) [Mass/Vol] 0.2 mg/dL [facility] Laboratory - Specimen inform ationon 08-03-2023 Appearance (U) clear [facility] Color (U) yellow [facility] Laboratory - Urinalysison Leukocyte esterase Test strip Ql (U) Negative [facility] Nitrite Ql (U) Negative [facility] Protein Ql (U) + [facility] No Panel Informationon 08-02 Urine Occult Blood + [facility] XR KNEE 4+ VIEWS LEFTon XR [...] Weight Tips; Status:Complete - Retrospective Authorization; Done: [id number] Some eating tips that can help you lose weight.; Status:Complete - Retrospective Authorization; Done: [id number] SocHx: Current smoker You need to quit smoking.; Status:Complete - Retrospective Authorization; Done: [id number] Tobacco Use Screening; Status:Complete; Done: [id number] You need to stop smoking. Though it is not easy, more than half of all adult smokers have quit. We encourage you to write down all the reasons you should quit smoking and set a quit date for yourself. Ask us how we can help. You may also call 9-016-IPSM-NOW for free resources and assistance.; Status:Complete - Retrospective Authorization; Done: [id number] Patient Instructions Please bring all medicines, vitamins, [...] Recorded: 02Dec2022 09:55AM Heart Rate60, L Radial Yqcxdrmu432, LUE, Sitting Wthiyvbzv79, LUE, Sitting Height5 ft 4 in Veebex351 lb BMI Tsbexgkyev30.2 kg/m2 BSA Calculated2.11 Tobacco Usea) Yes Patient [...] no ma (more content not included)... Normal [place] [place] Tobacco Screening.on 023 Fall risk assessment c) Not medically indicated [facility] y 250 DO Work Phone: Tobacco use status [facility] a) Yes [facility] y 250 DO Work Phone: Tobacco Screening. Yes [facility] 250 DO Work Phone: Office Visit [...] we can help. You may also call 5-544-NSAFNOW for free resources and assistance.; Status:Complete - [...] to retrieve her recent Holter monitor from [employer]. I suggested a trial of a [...] VITALSon 08-11-2022 Adult depression screening assessment No [facility] y 250 DO Work Phone: Tobacco Screening.on 023 Tobacco use status [facility] a) Yes [facility] 250 DO Work Phone: Tobacco Screening. Yes [facility] 250 DO Work Phone: ECHOCARDIO M/2D COMPLETEon 0 06-27-2022 ECHOCARDIO M/2D COMPLETE Patient: FELY MELÉNDEZ Exam Date: 06/27/2022 : 1970 Gender:F Ordering : DR CARRIE TALBOT M.D. Admission #: [id number] Family : Order #: [id number] CLICK HERE TO VIEW EXAM ECHOCARDIOGRAM REPORT [...] M.D. on 06/28/2022 at 19:30 Normal [facility] BNPon 06-10-2022 Natriuretic peptide B (Bld) [Mass/Vol] 384.0 pg/mL Normal <=900.0 [facility] Comment on above: Performed By: #### B PHLEBOTOMY COORDINATOR, BMP, HSTROPN ####[facility] [id number] [address]Miranda Saha CBC AUTO DIFFon 06-10-2022 BASO # 0.0 103/ul Normal 0.0-0.1 [facility] Comment on above: Performed By: #### C BC ####[facility] [address] [place] [address]Dr. Alis Saha Basophils/100 WBC (Bld) 0.5 % Normal 0.2-2.0 [facility] Comment on above: Performed By: #### C BC ####[facility] [address] [place], [place] [address]Dr. Kavitatrace Yifan EO # 0.1 103/ul Normal 0.0-0.7 [facility] Comment on above: Performed By: #### C BC ####[facility] Dkoftnbryk[address] [place], [place] [address]Dr. Alis Yifan Eosinophils/100 WBC (Bld) 1.6 % Normal 0.9-7.0 [facility] Comment on above: Performed By: #### C BC ####[facility] Mlqleikdwf[address] [place], [place] [address]Dr. Alis Saha Erythrocyte distribution width (RBC) [Ratio] 15.9 % Critically high 11.0-15.0 [facility] Comment on above: Performed By: #### C BC ####[facility] Gyfjafdsby[address] [place], [place] [address]Dr. Alis Saha Hematocrit (Bld) [Volume fraction] 37.1 % Normal 36.0-48.0 [facility] Comment on above: Performed By: #### C BC ####[facility] Jxjlquwkxp[address] [place], [place] [address]Dr. Alis Saha Hemoglobin (Bld) [Mass/Vol] 12.2 g/dL Normal 12.0-16.0 [facility] Comment on above: Performed By: #### C BC ####[facility] Noxkztsdix[address] [place], [place] [address]Dr. Alis Saha IG # 0.02 10e3/ul Normal 0.00-0.03 [facility] Comment on above: Performed By: #### C BC ####[facility] [id number] [place], [place] [id number]. Alis Saha IG % 0.2 % Normal 0.0-0.5 [facility] Comment on above: Performed By: #### C BC ####[facility] [address]qosx[address] [place] [address]Dr. Alis Saha LYMPH # 3.2 103/ul Normal 1.2-3.8 [facility] Comment on above: Performed By: #### C BC ####[facility] M[address] [place] [address]Dr. Alis Saha Lymphocytes/100 WBC (Bld) 37.3 % Normal 20.5-60.0 [facility] Comment on above: Performed By: #### C BC ####[facility] [address] [place] [address]DrMiranda Saha MANUAL DIFF REQ NO Normal [facility] Comment on above: Performed By: #### C BC ####[facility] [address] [place] [address]Dr. Kavitatrace Saha MCH (RBC) [Entitic mass] 29.8 pg Normal 26.7-34.0 [facility] Comment on above: Performed By: #### C BC ####[facility] Z[address]ow[address] [place], [place] [address]Dr. Alis Yifan MCHC (RBC) [Mass/Vol] 32.9 g/dL Normal 29.9-35.2 [facility] Comment on above: Performed By: #### C BC ####[facility] [address]wo[address] [place], [place] [address]DrMiranda Saha MCV (RBC) [Entitic vol] 90.5 fL Normal 81.0-99.0 [facility] Comment on above: Performed By: #### C BC ####[facility] [address] [place] [address]DrMiranda Saha MONO # 0.4 103/ul Normal 0.3-0.8 [facility] Comment on above: Performed By: #### C BC ####[facility] [address]urlivqf[address] [place], [place] [address]DrMiranda Saha Monocytes/100 WBC (Bld) 4.6 % Normal 1.7-12.0 [facility] Comment on above: Performed By: #### C BC ####[facility] [facility] [address] [id number]. Alis Saha NEUT # 4.8 103/ul Normal 1.4-6.5 [facility] Comment on above: Performed By: #### C BC ####[facility] B[address]jhcn[address] [id number]. Alis Saha Neutrophils/100 WBC (Bld) 55.8 % Normal 43.0-75.0 [facility] Comment on above: Performed By: #### C BC ####[facility] Eyog[address]chx[address] [id number]. Alis Saha Platelet mean volume (Bld) [Entitic vol] 9.9 fL Normal 9.5-13.5 [facility] Comment on above: Performed By: #### C BC ####[facility] Caeag[address]em[address] [id number]. Alis Saha PLT 265 103/ul Normal 150-450 [facility] Comment on above: Performed By: #### C BC ####[facility] P[address]kv[address] [id number]. Alis Saha RBC 4.10 106/ul Critically low 4.20-5.40 [facility] Comment on above: Performed By: #### C BC ####[facility] Oem[address]scqeg[address] [phone]. Alis Saha WBC 8.7 103/ul Normal 4.0-11.0 [facility] Comment on above: Performed By: #### C BC ####[facility] [address] [place], [place] [id number]. Alis Saha [facility]23 SARS-CoV-2 (COVID-19) RNA AMANDA+probe Ql (Unsp spec) Not detected Normal NOT DETECTED [facility] Comment on above: Result Comment: When diagnostic [...] for this test is supported by the [place] of Health and Human Service's declaration that [...] used). Performed By: #### C VDTBH #### [facility] [address] [address] [address] Alis Saha PROF CHEM 8 (BAS METB)on Anion gap [Moles/Vol] 11.7 mmol/L Normal [facility] Comment on above: Performed By: #### B PHLEBOTOMY COORDINATOR, BMP, HSTROPN ####[facility] [address] [address]Dr. Alis Saha Calcium [Mass/Vol] 8.8 mg/dL Normal 8.5-10.1 [facility] Comment on above: Performed By: #### B PHLEBOTOMY COORDINATOR, BMP, HSTROPN ####[facility] [address]wt[address] [address]Dr. Alis Saha Chloride [Moles/Vol] 108 mmol/L Critically high 98-107 [facility] Comment on above: Performed By: #### B PHLEBOTOMY COORDINATOR, BMP, HSTROPN ####[facility] [address]hp[address]ut[address] [address]Dr. Alis Saha CO2 [Moles/Vol] 23.7 mmol/L Normal 21.0-32.0 The [facility] Comment on above: Performed By: #### B PHLEBOTOMY COORDINATOR, BMP, HSTROPN ####[facility] [address]wfzi[address] [address]Dr. Alis Saha Creatinine [Mass/Vol] 0.70 mg/dL Normal 0.55-1.02 [facility] Comment on above: Performed By: #### B PHLEBOTOMY COORDINATOR, BMP, HSTROPN ####[facility] [address] [address]Dr. Alis Saha EGFR-AF ISRAELI >60 Normal >=60 [facility] Comment on above: Performed By: #### B PHLEBOTOMY COORDINATOR, BMP, HSTROPN ####[facility] Bcluvbdlab[address] [address]Dr. Alis Saha EGFR-NON AF ISRAELI >60 Normal >=60 [facility] Comment on above: Performed By: #### B PHLEBOTOMY COORDINATOR, BMP, HSTROPN ####[facility] Umh[address]ylfrr[address] [place], [place] [address]Dr. Alis Saha Glucose [Mass/Vol] 119 mg/dL Critically high 74-[address] [facility] Comment on above: Performed By: #### B PHLEBOTOMY COORDINATOR, BMP, HSTROPN ####[facility] Diokuhaoeq[address] [place], [place] [address]Dr. Alis Saha Potassium [Moles/Vol] 3.4 mmol/L Critically low 3.5-5.1 [facility] Comment on above: Performed By: #### B PHLEBOTOMY COORDINATOR, BMP, HSTROPN ####[facility] [address]xy[address] [address]Dr. Alis Saha Sodium [Moles/Vol] 140 mmol/L Normal 136-145 [facility] Comment on above: Performed By: #### B PHLEBOTOMY COORDINATOR, BMP, HSTROPN ####[facility] [address]ok[address] [address]Dr. Alis Saha Urea nitrogen [Mass/Vol] 14.0 mg/dL Normal 7.0-18.0 [facility] Comment on above: Performed By: #### B PHLEBOTOMY COORDINATOR, BMP, HSTROPN ####[facility] Aktcfxyczu[address] [place], [place] [address]Dr. Alis Saha Urea nitrogen/Creatinine [Mass ratio] 20.0 mg/mg Normal [facility] Comment on above: Performed By: #### B PHLEBOTOMY COORDINATOR, BMP, HSTROPN ####[facility] [address] [place], [place] [address]Yv. Alis Saha TROPONIN, HIGH SENSITIVITYon 06-10-2022 HSTROP 9.9 pg/mL Normal 4.0-51.3 [facility] Comment on above: Result Comment: CUT- OFF POINTS HAVE BEEN ESTABLISHED BASED ON THE FOURTH UNIVERSAL DEFINITIONS OF MYOCARDIAL INFARCTION. THE UPPER REFERENCE LIMIT (URL) OF TROPONIN, DEFINED THE 99TH PERCENTILE OF cTnI DISTRIBUTION IN A REFERENCE POPULATION, HAS BEEN CONFIRMED THE DECISION THRESHOLD FOR [place] DIAGNOSIS. Performed By: #### B PHLEBOTOMY COORDINATOR, BMP, HSTROPN ####[facility] [address]klb[address] [place], [place] [address]Hh. Alis Saha XR CHEST 1 Von 06-10-2022 [...] by: POPPY GREEN Date: 2022-06-09 23:02 Normal [facility] XR LSPINE MIN 4 VIEWSon 01-20 XR [...] CARLOS VILLATORO Date: 2022-02-02 07:17 Normal [facility] XR CSPINE 2_3 VIEWSon 2021 XR CSPINE [...] CARLOS VILLATORO Date: 2021-10-01 07:13 Normal [facility] CBC AUTO DIFFon 09-30-2021 BASO # 0.0 103/ul Normal 0.0-0.1 [facility] Comment on above: Performed By: #### C BC ####[facility] [address]ak[address] [place], [place] [address]Dr. Alis Saha Basophils/100 WBC (Bld) 0.4 % Normal 0.2-2.0 [facility] Comment on above: Performed By: #### C BC ####[facility] J[address] [place], [place] [address]Dr. Alis Saha EO # 0.1 103/ul Normal 0.0-0.7 [facility] Comment on above: Performed By: #### C BC ####[facility] K[address] [place], [place] [address]Dr. Alis Saha Eosinophils/100 WBC (Bld) 1.6 % Normal 0.9-7.0 [facility] Comment on above: Performed By: #### C BC ####[facility] [address]kewv[address] [place], [place] [address]Dr. Alis Saha Erythrocyte distribution width (RBC) [Ratio] 15.1 % Critically high 11.0-15.0 [facility] Comment on above: Performed By: #### C BC ####[facility] [address] [place], [place] [address]Dr. Alis Saha Hematocrit (Bld) [Volume fraction] 41.9 % Normal 36.0-48.0 [facility] Comment on above: Performed By: #### C BC ####[facility] [address]sp[address]wohm[address] [place] [id number]. Alis Saha Hemoglobin (Bld) [Mass/Vol] 13.5 g/dL Normal 12.0-16.0 [facility] Comment on above: Performed By: #### C BC ####[facility] Mpx[address]jgvi[address] [place] [id number]. Alis Saha IG # 0.01 10e3/ul Normal 0.00-0.03 [facility] Comment on above: Performed By: #### C BC ####[facility] Nrj[address]qtkyw[address] [place] [id number]. Alis Saha IG % 0.1 % Normal 0.0-0.5 [facility] Comment on above: Performed By: #### C BC ####[facility] [address]sekn[address] [place] [place] [address]Dr. Alis Saha LYMPH # 2.3 103/ul Normal 1.2-3.8 [facility] Comment on above: Performed By: #### C BC ####[facility] Haqxemjnlq[address] [place] [id number]. Alis Saha Lymphocytes/100 WBC (Bld) 27.9 % Normal 20.5-60.0 [facility] Comment on above: Performed By: #### C BC ####[facility] [address]ilbrd[address] [place] [id number]. Alis Saha MANUAL DIFF REQ NO Normal [facility] Comment on above: Performed By: #### C BC ####[facility] [address]gs[address] [place], [place] [id number]. Alis Saha MCH (RBC) [Entitic mass] 28.8 pg Normal 26.7-34.0 [facility] Comment on above: Performed By: #### C BC ####[facility] [address] [place], [place] [id number]. Alis Saha MCHC (RBC) [Mass/Vol] 32.2 g/dL Normal 29.9-35.2 [facility] Comment on above: Performed By: #### C BC ####[facility] [address] [place] [id number]. Alis Saha MCV (RBC) [Entitic vol] 89.3 fL Normal 81.0-99.0 [facility] Comment on above: Performed By: #### C BC ####[facility] [address]yrk[address] [place] [id number]. Alis Saha MONO # 0.5 103/ul Normal 0.3-0.8 [facility] Comment on above: Performed By: #### C BC ####[facility] X[address] [place], [place] [address]Dr. Alis Saha Monocytes/100 WBC (Bld) 5.6 % Normal 1.7-12.0 [facility] Comment on above: Performed By: #### C BC ####[facility] Bjvoeziwum[address] [place], [place] [address]Dr. Alis Saha NEUT # 5.3 103/ul Normal 1.4-6.5 [facility] Comment on above: Performed By: #### C BC ####[facility] Y[address]tdqvrr[address] [place], [place] [address]Dr. Alis Saha Neutrophils/100 WBC (Bld) 64.4 % Normal 43.0-75.0 [facility] Comment on above: Performed By: #### C BC ####[facility] [address]ufnujv[address] [place], [place] [address]Dr. Alis Saha Platelet mean volume (Bld) [Entitic vol] 9.5 fL Normal 9.5-13.5 [facility] Comment on above: Performed By: #### C BC ####[facility] [address] [place], [place] [address]Dr. Alis Saha PLT 316 103/ul Normal 150-450 [facility] Comment on above: Performed By: #### C BC ####[facility] Uso[address]knlxf[address] [place], [place] [id number]. Alis Yifan RBC 4.69 106/ul Normal 4.20-5.40 [facility] Comment on above: Performed By: #### C BC ####[facility] [address]ztxk[address] [place] [id number] Saha WBC 8.2 103/ul Normal 4.0-11.0 [facility] Comment on above: Performed By: #### C BC ####[facility] [address]afp[address] [place] [id number]. Alis Saha GLYCOHEMOGLOBIN A1Con 2021 ADA RECOMMENDATION SEE BELOW Normal The [facility] [place] Comment on above: Result Comment: ADA RECOMMENDED LIMIT 4.0 - 6.0 ADA THERAPEUTIC TARGET < 7.0 ACTION SUGGESTED > 7.0 Performed By: #### A 1C ####[facility] [address] [place] [place] [address]Dr. Alis Saha Glucose [Mass/Vol] 128 mg/dL Normal [facility] [place] Comment on above: Performed By: #### A 1C ####[facility] [address]mfw[address] [place] [place] [address]Dr. Alis Saha HbA1c (Bld) [Mass fraction] 6.1 % Normal 4.5-6.2 [facility] Comment on above: Performed By: #### A 1C ####[facility] [address]msm[address] [place] [address]Dr. Alis Saha PROF CHEM 8 (BAS METB)on Anion gap [Moles/Vol] 11.5 mmol/L Normal [facility] Comment on above: Performed By: #### T SANA, BMP #### [facility] [address] [address] [address] Alis Saha Calcium [Mass/Vol] 8.7 mg/dL Normal 8.5-10.1 [facility] [place] Comment on above: Performed By: #### T SANA, BMP #### [facility] [address] [address] [address] Alis Saha Chloride [Moles/Vol] 104 mmol/L Normal 98-107 [facility] Comment on above: Performed By: #### T SANA, BMP #### [facility] [address] [address] [address] Alis Saha CO2 [Moles/Vol] 25.5 mmol/L Normal 21.0-32.0 [facility] Comment on above: Performed By: #### T SH, BMP #### [facility] [address] [address] [address] Alis Saha Creatinine [Mass/Vol] 0.85 mg/dL Normal 0.55-1.02 [facility] Comment on above: Performed By: #### T SH, BMP #### [facility] [address] [address] [address] Alis Saha EGFR-AF ISRAELI >60 Normal >=60 [facility] Comment on above: Performed By: #### T SH, BMP #### [facility] [address] [place] [address] Dr. Alis Saha EGFR-NON AF ISRAELI >60 Normal >=60 [facility] Comment on above: Performed By: #### T SH, BMP #### [facility] [address] [place] [address] Dr. Alis Saha Glucose [Mass/Vol] 101 mg/dL Normal 74-106 [facility] Comment on above: Performed By: #### T SH, BMP #### [facility] [address] [address] [address] Alis Saha Potassium [Moles/Vol] 4.0 mmol/L Normal 3.5-5.1 [facility] Comment on above: Performed By: #### T SH, BMP #### [facility] [address] [place] [address] Dr. Alis Saha Sodium [Moles/Vol] 137 mmol/L Normal 136-145 [facility] Comment on above: Performed By: #### T SH, BMP #### [facility] [address] [address] [address] Alis Saha Urea nitrogen [Mass/Vol] 13.0 mg/dL Normal 7.0-18.0 [facility] Comment on above: Performed By: #### T SH, BMP #### [facility] [address] [place] [address] Dr. Alis Saha Urea nitrogen/Creatinine [Mass ratio] 15.3 mg/mg Normal [facility] Comment on above: Performed By: #### T SH, BMP #### [facility] [address] [address] [address] Alis Saha TSHon 09-30-2021 TSH 1.548 uIU/mL Normal 0.358-3.740 [facility] [place] [facility] Comment on above: Performed By: #### T SH, BMP #### [facility] [address] [address] [address] Alis Saha TSH RANGE SEE BELOW Normal [facility] Comment on above: Result Comment: <0.3 4 UIU/ml HYPERTHYROID 0.34-5.60 UIU/ml EUTHYROID >5.60 UIU/ml HYPOTHYROID Performed By: #### T SH, BMP #### [facility] [address] [address] [address] Alis Saha VC CONSULT FOLLOWUPon 2021 VC CONSULT FOLLOWUP Patient: FELY MELÉNDEZ Exam Date: 07/19/2021 : 1970 Gender:F Ordering : DR JUAN CARLOS VILLATORO M.D. Admission #: [id number] Family : Order #: [id number] CLICK HERE TO VIEW EXAM RADIOLOGY REPORT [...] Villatoro MD on 07/19/2021 at 15:16 Normal [facility] VC EXT VENOUS RT LIMITEDon 0 07-19-2021 VC EXT VENOUS RT LIMITED Patient: FELY MELÉNDEZ Exam Date: 07/19/2021 : 1970 Gender:F Ordering : DR JUAN CARLOS VILLATORO M.D. Admission #: [id number] Family : Order #: [id number] CLICK HERE TO VIEW EXAM RADIOLOGY REPORT [...] to distal calf. Heat induced thrombus in medical technologist prn distal calf 1.4 mm from PTV and [...] vein with occlusion of 2 associated incompetent medical technologist prn veins No deep vein thrombus Dictated by: Juan Carlos Villatoro MD on 07/19/2021 at 14:36 Approved by: Juan Carlos Villatoro MD on 07/19/2021 at 14:37 Normal [facility] VC ENDOVENOUS ABL 1ST V RTon 07-14-2021 VC ENDOVENOUS ABL 1ST V RT Patient: FELY MELÉNDEZ Exam Date: 07/14/2021 : 1970 Gender:F Ordering : DR JUAN CARLOS VILLATORO M.D. Admission #: [id number] Family : Order #: [id number] CLICK HERE TO VIEW EXAM RADIOLOGY REPORT [...] Palacios M.D. on 07/14/2021 at 14:50 Normal [facility] Vital Signs Date Time Vital Sign Value Performing Clinician Facility 03-04-2024 10:12-0400 Body mass index (BMI) [Ratio] 42.05 kg/m2 [employer] Phone: [facility] 03-04-2024 10:12-0400 Body weight 111.13 kg [employer] Phone: [facility] 03-04-2024 10:12-0400 Diastolic blood pressure 94 mm[Hg] [employer] Phone: [facility] 03-04-2024 10:12-0400 Systolic blood pressure 142 mm[Hg] [employer] Phone: [facility] 02-14-2024 15:42-0400 Blood Pressure Location [employer] [facility] 02-14-2024 15:42-0400 Diastolic blood pressure 78 mm[Hg] Mikhail JEFFERSONL [facility] 02-14-2024 15:42-0400 Heart rate 76 /min Mikhail VENEGAS [facility] 02-14-2024 15:42-0400 Respiratory rate 16 /min Mikhail VENEGAS [facility] 02-14-2024 15:42-0400 Systolic blood pressure 118 mm[Hg] Mikhail JE[employer]ERSONNet[employer] [facility] 01-18-2024 11:13-0400 Body height 163.83 cm [facility] 01-18-2024 11:13-0400 Body mass index (BMI) [Ratio] 42 kg/m2 [facility] 01-18-2024 11:13-0400 Body weight 112.94 kg [facility] 01-18-2024 11:13-0400 Diastolic blood pressure 80 mm[Hg] [facility] 01-18-2024 11:13-0400 Heart rate 65 /min [facility] 01-18-2024 11:13-0400 Systolic blood pressure 146 mm[Hg] [facility] 11-03-2023 10:24-0400 Diastolic blood pressure 87 mm[Hg] Bonny Meyer MD Work Phone: [facility] 11-03-2023 10:24-0400 Systolic blood pressure 132 mm[Hg] Bonny Meyer MD Work Phone: [facility] 11-03-2023 10:04-0400 Body height 162.6 cm Bonny Meyer MD Work Phone: [facility] 11-03-2023 10:04-0400 Body mass index (BMI) [Ratio] 43.43 kg/m2 Bonny Meyer MD Work Phone: [facility] 11-03-2023 10:04-0400 Body weight 114.76 kg Bonny Meyer MD Work Phone: [facility] 11-03-2023 10:04-0400 Heart rate 68 /min Bonny Meyer MD Work Phone: [facility] 10-03-2023 09:53-0400 Diastolic blood pressure 106 mm[Hg] Zulema Joya [facility] 10-03-2023 09:53-0400 Heart rate 73 /min Zulema Orzech [facility] 10-03-2023 09:53-0400 Respiratory rate 19 /min Zulema Orzech [facility] 10-03-2023 09:53-0400 Systolic blood pressure 146 mm[Hg] Zulema Orzech [facility] 08-09-2023 11:52-0400 Body height 163.83 cm [facility] 08-09-2023 11:52-0400 Body mass index (BMI) [Ratio] 41.8 kg/m2 [facility] 08-09-2023 11:52-0400 Body temperature 96.8 [degF] [facility] 08-09-2023 11:52-0400 Body weight 112.09 kg [facility] 08-09-2023 11:52-0400 Diastolic blood pressure 81 mm[Hg] [facility] 08-09-2023 11:52-0400 Heart rate 80 /min [facility] 08-09-2023 11:52-0400 Systolic blood pressure 114 mm[Hg] [facility] 05-31-2023 10:15-0500 Body height 163.83 cm Carrie Talbot Other [facility] 05-31-2023 10:15-0500 Body mass index (BMI) [Ratio] 42.89 kg/m2 Carrie Talbot Other [email or web address] Other 05-31-2023 10:15-0500 Body weight 115.12 kg Carrie Talbot Other [facility] 05-31-2023 10:15-0500 Diastolic blood pressure 83 mm[Hg] Carrie Talbot Other [facility] 05-31-2023 10:15-0500 Systolic blood pressure 124 mm[Hg] Carrie Talbot Other [facility] 04-20-2023 11:15-0500 Body height 163.83 cm Carrie Talbot Other [facility] [employer] Other 04-20-2023 11:15-0500 Body mass index (BMI) [Ratio] 42.58 kg/m2 Carrie Talbot Other [facility] [employer] Other 04-20-2023 11:15-0500 Body weight 114.31 kg Carrie Talbot Other [email or web address] Other 04-20-2023 11:15-0500 Diastolic blood pressure 88 mm[Hg] Carrie Talbot Other [email or web address] Other 04-20-2023 11:15-0500 Systolic blood pressure 138 mm[Hg] Carrie Talbot Other [email or web address] Other 02-21-2023 11:15-0400 Body height 163.83 cm Carrie Talbot Other [email or web address] Other 02-21-2023 11:15-0400 Body mass index (BMI) [Ratio] 41.91 kg/m2 Carrie Talbot Other [email or web address] Other 02-21-2023 11:15-0400 Body weight 112.49 kg Carrie Talbot Other [email or web address] Other 02-21-2023 11:15-0400 Diastolic blood pressure 86 mm[Hg] Carrie Talbot Other [email or web address] Other 02-21-2023 11:15-0400 Systolic blood pressure 130 mm[Hg] Carrie Talbot Other [facility] [employer] Other 12-02-2022 09:55-0400 Body height 162.56 cm Carrie Talbot Work Phone: [facility] 250 DO Work Phone: 12-02-2022 09:55-0400 Body mass index (BMI) [Ratio] 41.2 kg/m2 Carrie Talbot Work Phone: [facility] 250 DO Work Phone: 12-02-2022 09:55-0400 Body surface area Derived from formula 2.11 m2 Carrie Talbot Work Phone: [facility] 250 DO Work Phone: 12-02-2022 09:55-0400 Body weight 108.86 kg Carrie Talbot Work Phone: [facility] 250 DO Work Phone: 12-02-2022 09:55-0400 Diastolic blood pressure 62 mm[Hg] Carrie Talbot Work Phone: [facility] 250 DO Work Phone: 12-02-2022 09:55-0400 Heart rate 60 /min Carrie Talbot Work Phone: [facility] 250 DO Work Phone: 12-02-2022 09:55-0400 Systolic blood pressure 118 mm[Hg] Carrie Talbot Work Phone: [facility] 250 DO Work Phone: 08-11-2022 13:37-0400 Diastolic blood pressure 86 mm[Hg] Carrie Talbot Work Phone: [facility] 250 DO Work Phone: 08-11-2022 13:37-0400 Systolic blood pressure 137 mm[Hg] Carrie Talbot Work Phone: [facility] 250 DO Work Phone: 08-11-2022 13:26-0400 Heart rate 62 /min Carrie Talbot Work Phone: [facility] 250 DO Work Phone: 08-11-2022 13:24-0400 Diastolic blood pressure 88 mm[Hg] Carrie Talbot Work Phone: [facility] 250 DO Work Phone: 08-11-2022 13:24-0400 Systolic blood pressure 132 mm[Hg] Carrie Talbot Work Phone: [facility] 250 DO Work Phone: 08-11-2022 13:23-0400 Body height 162.56 cm Carrie Talbot Work Phone: [facility] 250 DO Work Phone: 08-11-2022 13:23-0400 Body mass index (BMI) [Ratio] 40.85 kg/m2 Carrie Talbot Work Phone: [facility] 250 DO Work Phone: 08-11-2022 13:23-0400 Body surface area Derived from formula 2.11 m2 Carrie Talbot Work Phone: [facility] 250 DO Work Phone: 08-11-2022 13:23-0400 Body weight 107.96 kg Carrie Talbot Work Phone: [facility] 250 DO Work Phone: 08-11-2022 13:23-0400 Diastolic blood pressure 90 mm[Hg] Carrie Talbot Work Phone: [facility] 250 DO Work Phone: 08-11-2022 13:23-0400 Systolic blood pressure 140 mm[Hg] Carrie Johnson Talbot Work Phone: -[facility] 250 DO Work Phone: Encounters Encounter Date Encounter Type Care Provider Facility Start: 03-04-2024 End: 03-04-2024 Bamboo flowsheet Nando Landon DO Work Phone: [facility] Start: 03-04-2024 End: 03-04-2024 Bamboo flowsheet Nando Landon DO Work Phone: [facility] Start: 03-04-2024 End: 03-04-2024 Patient encounter procedure Nando Landon DO Work Phone: [facility] Start: 03-04-2024 End: 03-04-2024 Periodic preventive med est patient 18-39 yrs Nando Landon DO Work Phone: [facility] Comment on above: Postmenopausal state ; Well woman exam with routine gynecological exam; Breast cancer screening by mammogram; Preoperative examination; Pelvic pain in female; Endometrial polyp Start: 03-04-2024 End: 03-04-2024 Preprocedural examination done Nando Landon DO Work Phone: [facility] Start: 03-04-2024 End: 03-04-2024 ambulatory NANDO LANDON Not Available Start: 02-14-2024 ambulatory Mikhail VENEGAS Facility :[facility] Start: 02-14-2024 End: 02-14-2024 Patient encounter procedure Mikhail VENEGAS [facility] Start: 02-05-2024 End: 02-05-2024 ambulatory NANDO LANDON Not Available Start: 01-30-2024 End: 01-30-2024 ambulatory Zulema Joya Facility:[facility] Start: 01-30-2024 End: 01-30-2024 Patient encounter procedure Zulema X Orzech [facility] Start: 01-19-2024 ambulatory Zulema Orzech Facility: [facility] Start: 01-18-2024 End: 01-18-2024 ambulatory [facility] Work Phone: Start: 01-18-2024 End: 01-18-2024 Patient encounter procedure [facility] Work Phone: Start: 01-09-2024 End: 01-09-2024 ambulatory Zulema X Orzech Facility:[facility] Start: 01-09-2024 End: 01-09-2024 Patient encounter procedure Zulema X Orzech [facility] Start: 01-08-2024 End: 01-08-2024 ambulatory NANDO LANDON Not Available Start: 12-06-2023 End: 12-06-2023 ambulatory NANDO LANDON Not Available Start: 11-07-2023 End: 11-07-2023 ambulatory Gemma Blanco Facility:[facility] Start: 11-07-2023 End: 11-07-2023 Patient encounter procedure Gemma Blanco [facility] Start: 11-03-2023 End: 11-03-2023 ambulatory [facility] Ambulatory Start: 11-03-2023 End: 11-03-2023 Office outpatient visit 25 minutes Bonny Meyer MD Work Phone: [facility] Comment on above: Palpitations (Primar y Dx); Essential hypertension; Shortness of breath; BMI 40.0-44.9, adult (Multi); Current smoker Start: 10-03-2023 End: 10-03-2023 ambulatory Zulema X Orzech Facility:[facility] Start: 10-03-2023 End: 10-03-2023 Patient encounter procedure Zulema X Orzech [facility] Start: 08-10-2023 ambulatory Zulema Joya Facility: [facility] Start: 08-09-2023 End: 08-09-2023 Departed Referred MD Carrie Talbot Work Phone: [facility] Work Phone: Start: 08-09-2023 End: 08-09-2023 ambulatory Carrie Talbot [facility] Work Phone: Start: 08-09-2023 End: 08-09-2023 Patient encounter procedure [facility] Work Phone: Start: 08-03-2023 End: 08-03-2023 ambulatory [facility] Work Phone: Start: 08-03-2023 End: 08-03-2023 Patient encounter procedure [facility] Work Phone: Start: 05-31-2023 End: 05-31-2023 ambulatory Carrie Talbot Other [email or web address] Other Start: 05-31-2023 Office outpatient vi sit 15 minutes Carrie Talbot [facility] Start: 05-31-2023 End: 05-31-2023 Patient encounter procedure [facility] Work Phone: Start: 05-25-2023 End: 05-25-2023 ambulatory ZOLTAN HENDERSON Not Available Start: 04-24-2023 End: 04-24-2023 ambulatory Carrie Talbot Other [email or web address] Other Start: 04-24-2023 Telephone encounter Carrie Talbot [facility] Start: 04-20-2023 End: 04-20-2023 ambulatory Carrie Talbot Other [email or web address] Other Start: 04-20-2023 Office outpatient vi sit 15 minutes Carrie Talbot [facility] Start: 03-28-2023 (Televisit) Televisit Carrie Gong [facility] Start: 03-28-2023 End: 03-28-2023 ambulatory Carrie Talbot Other [email or web address] Other Start: 02-21-2023 End: 02-21-2023 ambulatory Carrie Talbot Other [email or web address] Other Start: 02-21-2023 Office outpatient vi sit 25 minutes Carrie Talbot [facility] Start: 12-02-2022 ambulatory MD CARRIE TALBOT Facility: Start: 12-02-2022 Office outpatient vi sit 15 minutes Carrie Talbot [facility] Work Phone: Start: 08-18-2022 End: 08-18-2022 ambulatory Carrie Talbot Other [email or web address] Other Start: 08-18-2022 Telephone encounter Carrie Talbot [facility] Start: 08-11-[address] Bonny Meyer Facility: Start: 08-11-2022 Office consultation new/estab patient 60 min Carrie Talbot [facility]: [facility] Work Phone: Start: 08-05-2022 End: 08-05-2022 ambulatory Carrie Talbot Other [email or web address] Other Start: 08-05-2022 Nursing evaluation o f patient and report Carrie Talbot [facility] Start: 07-04-2022 End: 07-04-2022 ambulatory Carrie Talbot Other [email or web address] Other Start: 07-04-2022 Telephone encounter Carrie Talbot [facility] Start: 06-27-2022 End: 06-28-[address] CARRIE TALBOT Facility: Start: 06-22-2022 End: 06-22-2022 ambulatory Carrie Talbot Other [email or web address] Other Start: 06-22-2022 Telephone encounter Carrie Talbot [facility] Start: 06-14-2022 End: 06-14-2022 ambulatory Carrie Talbot Other [email or web address] Other Start: 06-14-2022 Telephone encounter Carrie Talbot [facility] Start: 06-12-2022 End: 06-12-2022 ambulatory ELY DANIELLE [...] procedure 10/28/2024 10:10 AM EDT Office Visit [facility] [address] [facility] [address] [place] [id number] Bonny Meyer MD [address] [facility] [address], [address] [place] [address] [facility] Start: 04-09-2024 End: 04-09-2024 Patient encounter procedure 04/09/2024 9:30 AM EST Office Visit [facility] [address] [place] [phone] Nando Navarrete, [address] [place] [address] [facility] Start: 03-04-2024 End: 03-04-2025 DXA Skeletal system Views for bone density DEXA bone density Imaging Routine Postmenopausal state Expected: 03/04/2024 (Approximate), Expires: 03/04/2025 [facility] Comment on above: Expected: 03/04/2024 (Approximate), Expires: 03/04/2025 Start: 03-04-2024 End: 05-04-2025 MG Breast - bilateral Screening Bilateral screening mammogram Imaging Routine Breast cancer screening by mammogram Expected: 03/04/2024, Expires: 05/04/2025 [facility] Work Phone: Comment on above: Expected: 03/04/2024 , Expires: 05/04/2025 Start: 03-04-2024 End: 03-04-2024 Patient encounter procedure 03/04/2024 10:00 AM EDT Office Visit [facility] [address] [place] [address] Nando Navarrete DO [address] [place] [address] Arrived [facility] Comment on above: Arrived Start: 01-21-2024 Influenza vaccination Influenz a Vaccine (Season Ended) [facility] Start: 01-18-2024 Patient referral [facility] Work Phone: Start: 08-09-2023 Bacteria identified in Urine by Culture [facility] Start: 08-09-2023 Patient referral [facility] Work Phone: Start: 01-20-2023 COVID-19 Vaccine ( season) COVID-19 Vaccine ( season) [facility] Start: 12-02-2022 FUV, Provider: Bonny Meyer, Status: Pen, Time: 9:40 AM FUV, Provider: Bonny Meyer, Status: Pen, Time: 9:40 AM [facility] 250 DO Work Phone: Start: 2022 Zoster Vaccines (1 o f 2) Zoster Vaccines (1 of 2) [facility] Start: 2012 Screening for malign ant neoplasm of breast Mammogram [facility] Start: 1994 DTaP/Tdap/Td Vaccine s (1 - Tdap) DTaP/Tdap/Td Vaccines (1 - Tdap) [facility] Start: 1993 Screening for malign ant neoplasm of cervix [facility] Start: 1991 Hepatitis B Vaccines (1 of 3 - 19+ 3-dose series) Hepatitis B Vaccines (1 of 3 - 19+ 3-dose series) [facility] Start: 1990 Diabetes mellitus screening Diabetes Screening [facility] Start: 1990 Hepatitis C screening Hepatitis C Sc [facility] Start: 1978 Pneumococcal Vaccine : Pediatrics (0 to 5 Years) and At-Risk Patients (6 to 64 Years) (1 of 2 - PCV) Pneumococcal Vaccine: Pediatrics (0 to 5 Years) and At-Risk Patients (6 to 64 Years) (1 of 2 - PCV) [facility] Start: 1973 MMR Vaccines (1 of 1 - Standard series) MMR Vaccines (1 of 1 - Standard series) [facility] Start: 1972 HIV screening HIV Screening [facility] Start: 1972 Lipid panel Lipid Panel [facility] Start: 1972 Screening for malign ant neoplasm of colon [facility] Start: 1972 Yearly Adult Physical Yearly Adult P [facility] Patient referral [facility] Work Phone: THIN PREP TIS PAP AN D HR HPV DNA THIN PREP TIS PAP AND HR HPV DNA Pathology and Cytology Routine Well woman exam with routine gynecological exam Ordered: 03/04/2024 [facility] Comment on above: Ordered: 03/04/2024 Payers Date Payer Category Payer Private Health Insurance [facility] MEDICA[facility] [id number] 2021 Unknown 2021 Unknown [id number] 1972 Unknown [id number] 2.16.840.1.366724.3.579.2. 593 1972 Unknown [id number] 2.16.840.1.166598.3.579.2. 593 1972 Unknown [id number] 2.16.840.1.415027.3.579.2. 593 1972 Unknown [id number] 2.16.840.1.863448.3.579.2. 593 1972 Unknown [id number] 2.16.840.1.893329.3.579.2. 593 1972 Unknown [id number] 2.16.840.1.242275.3.579.2. 593 1972 Unknown [id number] 2.16.840.1.727957.3.579.2. 593 1972 Unknown [id number] 2.16.840.1.777045.3.579.2. 593 1972 Unknown [id number] 2.16.840.1.344087.3.579.2. 593 1972 Unknown [id number] 2.16.840.1.942881.3.579.2. 593 1972 Unknown [id number] 2.16.840.1.702494.3.579.2. 593 1972 Unknown [id number] 2.16.840.1.315502.3.579.2. 593 1972 Unknown [id number] 2.16.840.1.307463.3.579.2. 593 1972 Unknown [id number] 2.16.840.1.186699.3.579.2. 593 1972 Unknown [id number] 2.16.840.1.126336.3.579.2. 356 1972 Unknown [id number] 2.16.840.1.697530.3.579.2. 356 1972 Unknown [id number] 2.16.840.1.802423.3.579.2. 1244 1972 Unknown [id number] 2.16.840.1.356875.3.579.2. 727 1972 Unknown [id number] 2.16.840.1.006671.3.579.2. 727 1972 Unknown [id number] 2.16.840.1.445817.3.579.2. 727 1972 Unknown [id number] 2.16.840.1.175086.3.579.2. 727 1972 Unknown [id number] 2.16.840.1.766866.3.579.2. 727 1972 Unknown [id number] 2.16.840.1.756312.3.579.2. 1259 1972 Unknown [id number] 2.16.840.1.969919.3.579.2. 1259 1972 Unknown [id number] 2.16.840.1.016500.3.579.2. 9 1972 Unknown [id number] 2.16.840.1.134191.3.579.2. 9 1972 Unknown [id number] 2.16.840.1.940603.3.579.2. 1259 1972 Unknown [id number] 2.16.840.1.336027.3.579.2. 1259 1959 Unknown [id number] Social History Date Type Detail Facility Unknown if ever smoked [email or web address] Other Start: 08-08-2023 Sex Assigned At F [facility] Start: 08-08-2023 Caffeine use Caffeine use [facility] [address] DO Work Phone: Comment on above: pop all day; 5-10 cigarettes jessi y; Start: 1970 Sex Assigned At Female F [facility] Start: 10-03-2023 End: 01-30-2024 Tobacco smoking status Heavy tobacco smoker (finding) [facility] Start: 11-03-2023 [facility] Work Phone: History of tobacco use Cigarette Smoker [facility] Work Phone: Start: 11-03-2023 Tobacco use and exposure User of smokeless tobacco [facility] Work Phone: Start: 11-03-2023 Alcoholic beverage intake Lifetime non-drinker (finding) [facility] Work Phone: Start: 11-03-2023 Tobacco Comment vape [facility] Work Phone: Start: 1970 Sex assigned at Not on file [facility] Work Phone: Start: 10-24-2023 End: 11-03-2023 Exposure to SARS-CoV-2 (event) Not sure [facility] Start: 02-14-2024 Tobacco smoking status Light t obacco smoker (finding) [facility] Start: 05-25-2023 Tobacco [facility] consumption unknown [facility] Functional Status Date Assessment Result Facility 02-14-2024 Functional Status N/A [facility] 10-03-2023 Functional Status N/A [facility] Clinical Notes 09-30-2021 to 03-04-2024 Peace Roblero [...] on 03/29/[address] Navarrete at [facility]. MEDICATIONS Current Outpatient Medications Medication Instructions famotidine [...] nursing note reviewed. Exam conducted with a senior risk analyst present. Vitals: Estimated body mass index is [...] reviewed, and patient is to proceed to [facility] OR. Follow Up: Patient is to follow up between 1-2 weeks post operative to assess proper healing and recovery from procedure. Documented by She Reyes LPN on behalf of: Nando Navarrete DO documented in this encounter [facility] 01-30-2024 Hospital Discharge instructions Patient Education 01/30/2024 [...] hormones. Follow these instructions at home: Take hkev-yrd-mpuxfbt and prescription medicines only as told by [...] any of the signs or symptoms of Leeton's syndrome or primary aldosteronism. You need help [...] provider. Document Revised: 01/05/2021 Document Reviewed: 01/05/2021 [employer] Patient Education 2023 [employer] 01/30/2024 10:50:38 Steps to Quit Smoking [...] require a prescription. You can also purchase fkpf-khl-ksqpztx medicines. Medicines may have nicotine in them [...] and encouragement. Call telephone quitlines, such as 3-963-JAHO-NOW, reach out to support groups, or work [...] provider. Document Revised: 04/29/2022 Document Reviewed: 04/29/2022 [employer] Patient Education 2023 [employer]. 01/30/2024 10:50:36 Overactive Bladder, Adult Overactive Bladder, [...] your health care provider. General instructions Take oukx-fup-ycxenfe and prescription medicines only as told by [...] provider. Document Revised: 01/25/2021 Document Reviewed: 01/25/2021 [employer] Patient Education 2023 [employer]. 01/30/2024 10:50:34 Hematuria, Adult Hematuria, Adult Hematuria [...] Follow these instructions at home: Medicines Take pelm-sgd-lvwarkw and prescription medicines only as told by [...] or the blood stops without treatment. Take nbaj-gqb-iovuymp and prescription medicines only as told by your health care provider. Drink enough fluid to keep your urine pale yellow. This information is not intended to replace advice given to you by your health care provider. Make sure you discuss any questions you have with your health care provider. Document Revised: 01/06/2021 Document Reviewed: 01/06/2021 [employer] Patient Education 2023 [employer]. 01/30/2024 10:50:34 Dietary Guidelines to Help Prevent [...] include: ?8 oz (237 mL) of milk, gdfdqid-rsflmkzqfaog-oexzh milk, and calcium-fortifiedfruit juice. Calcium-fortified means that [...] ?Spinach (cooked), rhubarb, beets, sweet potatoes, and Gibraltarian chard. ?Peanuts. ?Potato chips, norwegian fries, and baked potatoes with skin on. ?Nuts and nut products. ?Chocolate. If you regularly take a diuretic medicine, make sure to eat at least 1 or 2 servings of fruits or vegetables that are high in potassium each day. These include: ?Avocado. ?Banana. ?Mermentau, prune, carrot, or tomato juice. ?Baked potato. [...] magnesium, fish oil, or vitamin B6. Take acmt-ecg-cjkuhky and prescription medicines only as told by [...] Casseroles. Pizza. Lasagna. Frozen meals. Potato chips. Cypriot fries. The items listed above may not [...] provider. Document Revised: 08/18/2022 Document Reviewed: 08/18/2022 [employer] Patient Education 2023 [employer]. Follow Up Care 01/08/2024 16:41:10 With:JOHNNA Joya APRN, Zulema Lema, GYPSY, URL Address: When: Unknown Comments:3-4 mos [facility] 01-30-2024 Note Patient Education Nephrology Dietary Guidelines [...] ? 8 oz (237 mL) of milk, sjwkpwh-uhbsmwhtnyea-vqwrz milk, and calcium-fortifiedfruit juice. Calcium-fortified means that [...] Spinach (cooked), rhubarb, beets, sweet potatoes, and Gibraltarian chard. ? Peanuts. ? Potato chips, norwegian fries, and baked potatoes with skin on. ? Nuts and nut products. ? Chocolate. ? If you regularly take a diuretic medicine, make sure to eat at least 1 or 2 servings of fruits or vegetables that are high in potassium each day. These include: ? Avocado. ? Banana. ? Mermentau, prune, carrot, or tomato juice. ? Baked [...] fish oil, or vitamin B6. ? Take mebs-teq-sfylccu and prescription medicines only as told by your health care provider. These include suppleme (more content not included)... [facility] 11-07-2023 Evaluation + Plan note Extrac galileo from: Title: Clinic [facility] Note Author:Francis HERNANDEZ, Gemma Lee . Date:11/07/23 Impression and Plan Assessment and Plan: Diagnosis: Adrenal adenoma (DGA76-KV D35.00, Working, Medical), Gross hematuria (DNA96-CX R31.0, Discharge, Medical), OAB (overactive bladder) (GNJ10-HP N32.81, Discharge, Medical), TEAGAN (stress urinary incontinence, female) (BSB23-NU N39.3, Working, Medical). 53 year old female [...] AM Scheduled Provider:JOHNNA Joya APRN, [facility] Location:[facility] Appointment Type:URO Office Visit Diagnostic Tests Pending * Urine Cytology ([facility]) 11/07/23 [facility]06-18-2024 Hospital Discharge instructions Patient Education 11/07/2023 [...] With:Gemma Blanco Address:Unknown When: Unknown [facility]06-18-2024 Note [id number] NoteCystoscopy ? Voiding after the [...] if you have a fever over 100 degrees.[facility] 11-03-2023 Instructions* Patient Instructions* Sharda [...] time of your visit. [facility] Work Phone: 1(530) 112-344005-17-2024 NoteChief Complaint referral HPI Staff Referral for dysuria, left flank pain and hematuria by Dr. Talbot. Pt was seen in [facility] ED 08/11/23 for urinary frequency [...] with voice recognition artificial intelligence software, specifically [employer] 24/7, Dragon Express and or Dragon Ambient Experience. [...] work, dexamethasone testing. 3. Dysuria (R30.0: Dysuria) [facility] ER 08/11/2023-urinary frequency, low back [...] fluid intake so jah (more content not included)...[facility]Result Comment: Electronically Signed By: JOHNNA Joya APRN, [facility]\.br\Date and Time Signed: 10/06/23 12:54 [id number] Evaluation + Plan note Diagnostic Tests Pending * Cortisol 10/03/23 * Lab Miscellaneous-LC 10/03/23 * Lab Miscellaneous-LC 10/03/23 [facility] 01-10-2024 Evaluation note* Encounter Date Diagnosis Assessment Notes Treatment Notes Treatment Clinical Notes May, Pain, joint, knee, left (ICD-10 - M25.562) Pt declines PT at this time. Will attempt MRI. She declines Ortho referral at this time as well. MRI order sent to [facility]. work note given for restrictions as she is unable to climb a lot of stairs due to pain. May, Uncontrolled hypertension (ICD-10 - I10) Reviewed labs w pt. No hypokalemia or other electrolyte abnormalities noted in Apr. [email or web address] Other 12-04-2023 Evaluation note* Encounter Date Diagnosis Assessment Notes Treatment Notes Treatment Clinical Notes Apr, Essential hypertension (ICD-10 - I10) [email or web address] Other 11-30-2023 Evaluation note* Encounter Date Diagnosis Assessment Notes Treatment Notes Treatment Clinical Notes Mar, Radicular syndrome of left leg (ICD-10 - M54.10) Agrees to imaging to r/o DDD or lumbar fracture. Mar, Leg pain, left (ICD-10 - M79.605) Discussed concern for DVT. US scheduled for today. [email or web address] Other 11-07-2023 Evaluation note* Encounter Date Diagnosis [...] verbalized understanding and agreement with treatment plan. [email or web address] Other 10-03-2023 Evaluation note* Encounter Date Diagnosis [...] Advised she limit NSAIDs and added omeprazole [employer] Other 03-30-2023 Evaluation note* Encounter Date Diagnosis Assessment Notes Treatment Notes Treatment Clinical Notes Jul, Uncontrolled hypertension (ICD-10 - I10) [email or web address] Other 03-17-2023 Evaluation note* Encounter Date Diagnosis Assessment Notes Treatment Notes Treatment Clinical Notes Jul, Dysuria (ICD-10 - R30.0) [employer] Other [id number] NotePROCEDURE: XR ANKLE LT MIN 3 V, [...] Electronically authenticated by: VLADIMIR PALACIOS Date: 2022-05-06 07:13[facility]12-16-2022 NotePROCEDURE: XR ANKLE LT MIN 3 V, [...] Electronically authenticated by: VLADIMIR PALACIOS Date: 2022-05-06 07:13[facility]05-12-2022 NotePROCEDURE: XR ELBOW LT MIN 3 VIEWS HISTORY: Pain of left elbow joint , acute; limited range of motion COMPARISON: None. FINDINGS: BONES:No fracture, acute abnormality, or significant arthropathy. SOFT TISSUES:No visible soft tissue swelling. EFFUSION:None visible. OTHER: Negative. IMPRESSION: 1. Normal examination. Electronically authenticated by: VLADIMIR PALACIOS Date: 2021-09-30 16:50[facility] Narrative - ReportedFELY MELÉNDEZ is being seen for a consultation for blood pressure issues.-[facility] [address] DO Work Phone: Evaluation + Plan note Future Appointments Appointment Date:01/30/2024 09:30:00 AM Scheduled Provider:JOHNNA Joya APRN, [facility] Location:[facility] Appointment Type:URO Office Visit [facility] evaluation + Plan note Future Appointments Appointment Date:02/14/2024 03:40:00 PM Scheduled Provider:Mikhail VENEGAS MD Location:[facility] Appointment Type:[facility] 30 [facility] evaluation noteNo InformationNortCanvera [employer] Other Evaluation noteNo assessment information available [facility] Work Phone: Evaluation note* Diagnosis Onset Date Resolution Status Dysuria acute Hematuria acute Left flank pain acute [facility] Work Phone: Evaluation note* Diagnosis Palpitations- Primary Essential hypertension Unspecified essential hypertension Shortness of breath BMI 40.0-44.9, adult (Multi) Current smoker documented in this encounter [facility] Work Phone: Evaluation note* Diagnosis Onset Date Resolution Status Rectal bleeding acute [facility] Work Phone: Evaluation note* Diagnosis Postmenopausal state [...] OF ADHESIONS 09/2015 Hospitalization History SEE SURGICAL [facility] [employer] Other History of Present illness Narrative* Patient [...] to retrieve her recent Holter monitor from [facility] * 3. I suggested a trial of [...] diet * 6. Follow-up in 4 months -[facility] 250 DO Work Phone: History of [...] diet * 5. Follow-up in 4 months [facility] 250 DO Work Phone: Hospital course Narrative No data available for this section [facility] Hospital Discharge instructionsAmbulatory Orders* Referral to Urology Time Frame: 08/09/23, Location: None [facility] Work Phone: Hospital Discharge instructions No data available for this section [facility] Hospital Discharge instructionsAmbulatory Orders* Referral to General Surgery Time Frame: 01/18/24, Location: None [facility] Work Phone: Progress note No data available for this section [facility] reason for referral (narrative)* Consultation (Routine) - Authorized Specialty Diagnoses / Procedures Referred By Niko sousa Referred To Contact Cardiology Diagnoses Essential hypertension Procedures Follow Up In Cardiology Bonny Meyer MD [address] [facility] [address], [facility] [address] [place] [address] Bonny Meyer MD [address] [facility], [facility] [address] [place] [address] Referral ID Status Reason Start Date Expiration Date V isits Requested Visits Authorized [id number] Authorized 11/03/2023 11/02/2024 1 1 [facility] Work Phone: Summary Purpose Family History [...] ure of right hand (M72.0) Referral Organization [facility] Cale vargas Referring Provider First Name Carrie Referring Provider Last Name Ronaldo Referring Provider Specialty Family [facility] Referred Organization [facility] Referred Provider Deisi Branch Referred Address [address],[place],[address] Referred Provider Specialty Orthopedic S urgery Referral [...] DATE CREATED AUTHOR AUTHOR'S ORGANIZ ATION 12/03/2022 [facility] DATE CREATED AUTHOR AUTHOR'S ORGANIZ ATION 12/03/2022 [employer] DATE CREATED AUTHOR AUTHOR'S ORGANIZ ATION 08/12/2023 [facility] DATE CREATED AUTHOR AUTHOR'S ORGANIZ ATION 11/04/2023 [facility] DATE CREATED AUTHOR AUTHOR'S ORGANIZ ATION 01/31/2024 [place] [facility] DATE CREATED AUTHOR AUTHOR'S ORGANIZ ATION 02/13/2024 [place] [facility] DATE CREATED AUTHOR AUTHOR'S ORGANIZ ATION 03/05/2024 [facility] EPIC REASON FOR VISIT [...] August 09, 2023 End: August 09, 2023 Glue Maker Relationship Specialty Start Date End Date Carrie Talbot MD [address] [place] [address] [address] [place] [id number] PCP - General 08/11/22 Team Status: Inactive Member Role Status Dates Carrie Talbot MD Primary Care Provide r, Attending Provider Active Start: January 18, 2024 End: January 18, 2024 Glue Maker Relationship Specialty Start Date End Date Carrie Talbot MD [address] [place] [id number] PCP - General Family Medicine 05/25/23 Glue Maker Relationship Specialty Start Date End Date Carrie Talbot MD [address] [place] [id number] PCP - General Family Medicine 05/25/23 Goals [...] BE BASED ON THE PRIMARY CLINICAL RECORDS. [facility] [employer] provides no warranty or guarantee of the accuracy or completeness of information in this document.
== END 2024-03-08 11:16 | disposition home or self-care (01) ==
LOC: PST 11:15
PROVIDERS: PCP Family Medicine; Visit Provider Surgery
DX: Z01.818 Encounter for other preprocedural examination (principal); K62.5 Hemorrhage of anus and rectum; R10.9 Unspecified abdominal pain

== ENCOUNTER 2024-03-15 09:16 | Day surgery (SDC) | payer OTHER, SELFPAY ==
[2024-03-08 11:57] VITALS: BP 139/89; PULSE 99; TEMP 36.4; O2SAT 98; BMI 42.1
[2024-03-15] VITALS (12 sets, daily range): BP systolic 127–159; BP diastolic 72–107; PULSE 53–77; TEMP 36.1–36.4; O2SAT 93–98; BMI 42.3
--- OUTSIDE RECORDS SUMMARY | 2024-03-15 09:20 | XMS_ITS | CCD ---
Author Organization [facility] Care Team Providers Care Gate Clerk Name Role Phone SHAUNA, DR JUAN CARLOS [...] CARLOS Mayberry Admtariq Unavailable ZIEBER, DR VLADIMIR tSevens Consulting Unavailable TALBOT, DR CARRIE Johnson Consulting [...] Attending Unavaila MD Carrie Jules Attending Provider [phone] Carrie Talbot Admitting Unavailable Carrie Talbot Attending Unavailable CARRIE TALBOT Primary Care Physician Carrie Talbot MD Primary Care Provider [phone] BONNY MEYER Attending Unavailable CARRIE TALBOT Primary [...] source) cefdinir Drug Allergy 08-08-19 24 Unknown [facility] Opioid Agonists (1 source) Codeine Drug Allergy 05-25-19 24 Hives, Unknown [facility] Work Phone: Quinolones (antibiotic) (1 source) Ciprofloxacin Drug Allergy 11-03-19 Other [facility] (10 sources) Cefuroxime Drug Allergy 05-25-19 Unknown [facility] (20 sources) Codeine; Translations: [CODEINE] Drug Allergy 05-25-19 Weal (disorder), Unknown, [facility] (10 sources) Pseudoephedrine Drug Allergy 05-25-19 24 Unknown [employer] Other (2 sources) cefdinir; Translations: [cefdinir] Drug Allergy 08-08-19 Other [facility] Repository (6 sources) Ceftin *CEPHALOSPORINS* Propensity to adverse reactions 02-12-20 13 Unknown [employer] Other (6 sources) Pseudoephedrine HCl *NASAL AGENTS - SYSTEMIC AND T Propensity to adverse reactions 02-12-20 13 Unknown [employer] Other (4 sources) Cephalosporins (Antibiotic) Allergy to substance 05-31-19 24 [facility] (4 sources) Pseudoephedrine HCl *NASAL AGE Allergy to substance 05-31-19 [facility] (7 sources) Acetaminophen / Dextromethorphan / Doxylamine / Pseudoephedrine; Translations: [APAP/dextromethorp dwyer/doxylamine/PSE] Drug Allergy Unknown (qualifier value) [facility] (13 sources) Ciprofloxacin; Translations: [ciprofloxacin] Drug Allergy 11-03-19 Unknown (qualifier value), Weal (disorder), Unknown [facility] (2 sources) Acetaminophen; Translations: [acetaminophen] Drug Allergy [facility] Repository (5 sources) cefdinir Drug Allergy 08-08-19 Unknown [facility] Healthcare Medications Current Medications Medication Drug Class(es) [...] Status: Ordered famotidine 20 mg oral tablet (11 sources) Histamine-2 Receptor Antagonist Start: 10-03-2023 take [...] days Active valsartan 40 mg oral tablet (9 sources) Angiotensin 2 Receptor Josefina Start: 024 [...] Coronary arteriosclerosis; Translations: [Atherosclerotic heart disease of [place] coronary artery without angina pectoris] 09-28-2023 Chronic [...] 2 Chronic Other aftercare (1 source) Other residential (current) drug therapy; Translations: [OTH USP CURRENT DRUG THERAPY] Onset: 3 Episodic Other [...] cervix 01-30-2024 Episodic Other female genital disorders (5 sources) Lump of cervix; Translations: [Other specified [...] (adult) (pediatric)] 09-28-2023 Chronic Residual codes; unclassified (7 sources) Postmenopausal state; Translations: [Asymptomatic menopausal state] [...] Test Name Value Interpretation Reference Range Facility ALL BASIC METABOLIC PANELon 03-08-2024 Anion gap [Moles/Vol] 15.2 mmol/L [facility] Calcium [Mass/Vol] 9.3 mg/dL 8.5 - 10. 1 mg/dL [facility] Chloride [Moles/Vol] 106 mmol/L 98 - 107 mmol/L [facility] CO2 [Moles/Vol] 24 mmol/L 21.0 - 32.0 mmol/L [facility] Creatinine [Mass/Vol] 0.85 mg/dL 0.55 - 1.02 mg/dL [facility] GFR/1.73 sq M.predicted CKD-EPI (S/P/Bld) [Vol rate/Area] >60 >=60 mL/min/1.73m 2 [facility] Glucose [Mass/Vol] 84 mg/dL 74 - 106 mg/dL [facility] Potassium [Moles/Vol] 4.2 mmol/L 3.5 - 5.1 mmol/L [facility] Sodium [Moles/Vol] 141 mmol/L 136 - 145 mmol/L [facility] TBH EGFR-NON AF PERUVIAN >60 >=60 mL/min/1.73m 2 [facility] Urea nitrogen [Mass/Vol] 12 mg/dL 7.0 - 18.0 mg/dL [facility] Urea nitrogen/Creatinine [Mass ratio] 14.1 mg/mg [facility] IGP,APTIMA HPV,AGE GDLNon AGE GDLN ACOG TESTING Note . [facility] Comment on above: TESTS RESULT FLAG UN ITS REF RANGE LAB Clinician Provided Cytology Information Source.............Cervix;Endocervix No. of containers..01 ThinPrep Vial Age Alana CHASE Annmarie... FLAG LEGEND: L-Low Normal,H-High Normal,LL-Alert Low,HH-Alert High <-Panic Low,>-Panic High,A-Abnormal,AA-Critical Abnormal Performed at: 01 =[address] [phone] Chula Duran MD, HPV APTIMA Negative Negative [facility] Comment on above: This nucleic acid am plification test detects fourteen high- risk HPV types (16,18,31,33,35,39,45,51,52,56,58,59,66,68) without differentiation. Performed at: =[address] [id number] Sand Polisher: Chula Duran MD, Phone: [phone] Performed at: [address] [id number] Sand Polisher: Chula Duran MD, Phone: [phone] IGP, APTIMA HPV, RFX 16/18,45 Note . [facility] Comment on above: TESTS RESULT FLAG UN ITS REF RANGE LAB DIAGNOSIS: 02 NEGATIVE FOR INTRAEPITHELIAL LESION OR MALIGNANCY. Specimen adequacy: 02 Satisfactory for evaluation. Endocervical and/or squamous metaplastic cells (endocervical component) are present. Performed by: 02 Ivan Sierra, Die Cast Operator ([facility]) . 02 Note: Note 02 The Pap smear is a screening test designed to aid in the detection of premalignant and malignant conditions of the uterine cervix. It is not a diagnostic procedure and should not be used as the sole means of detecting cervical cancer. Both false-positive and false-negative reports do occur. Test Methodology: Note 02 This liquid based ThinPrep(R) pap test was screened with the use of an image guided system. HPV Genotype Reflex Note 02 Criteria not met, HPV Genotype not performed. FLAG LEGEND: L-Low Normal,H-High Normal,LL-Alert Low,HH-Alert High <-Panic Low,>-Panic High,A-Abnormal,AA-Critical Abnormal Performed at: 02 [facility] [address] [phone] Chula Duran MD, BRUSH-SPATULA CERVIX ENDOCERVIX [facility] Ambulatory Visit Summaryon 0 01-30-2024 Ambulatory Visit [...] EDT With: RUBI HERNANDEZ, Mikhail Stevens Where: [address], [address], [address] Medications What How Much When Why Instructions [...] for choosing us for your care. Normal [facility] Reminderson 01-30-2024 Reminders Reminders From: Yvette Hilliard To: EU - Administrative; Sent: 01/30/2024 10:26:31 EDT Show up: 03/22/2024 10:26:00 EDT Subject: Ambulatory Reminder Due Date/Time: 05/31/2024 10:26:00 EST Reminder/Recall Patient needs scheduled with AO for a 4M f/u, due back in May of 2024 Normal [facility] Urology Office/Clinic Noteon 01-30-2024 Urology Office/Clinic Note [...] with voice recognition artificial intelligence software, specifically [address], [employer] and or [employer]. Substitutions may have occurred due to the [...] any recent stone passing. [1] CTU at [facility] 11/01/2023 without abnormality explain patient's hematuria [...] unspecified, uncomplicated) Increased risk of CA Orders: [id number] Measure Post Void residual urine and/or bladder capacity by US- non-imaging Urnls Dip Stick Auto w/o Microscopy POC 98748 Follow-up With When Contact Information JOHNNA Joya [...] tab(s), Oral, (more content not included)... Normal [facility] Comment on above: Result Comment: Elec tronically Signed By: JOHNNA Joya APRN, Zulema Lema\.br\Date and Time Signed: 01/30/24 10:50 EDT Urine Cytology ([facility])on 0 11-12-2023 Microscopic exam Cytology (U) [Interp] Diagnosis Info Invalid Interpretation Code [facility] Comment on above: Result Comment: A:Ur ine,Cystoscopy:Cystoscopy Interpretation - MicroScopic Description - Adequacy - Gross Description Site ID:A color Light Yellow fixative Alcohol Specimen designated Cystoscopy received in alcohol preservative and labeled with the patient?s name, consists of 100ml clear light yellow fluid. Electronically signed by : on: 11/12/2023 10:13:54 Performed By: #### 1 [id number] #### [facility] Laboratory [address] [place], [place] [id number] Coding Summary.on 11-09-2023 Coding Summary. CSPTLfre40XAf3xLv+PG hl YWQ+DW8LXXGyR77boQByuB 4vU9EXIXdSHonjNPZVKVuV ZqKotqCrDT2krPYzGEHy IC8+NF5cIYTpKdqzrPIco7 I9bAQ9G05acg0qFGisaPS4 QIVtXbCxqrdcp4reoOc0XA cuNmluOyBt AHMtvW59RRN5xX84Al08qT JvgNTbj5vuoDs3KhLxZRIc XSU6uSegHFlrv7CxDNVpA8 9twSGgv3T8 EJYsxAzfiEGqBbRuuVR0vL 2yVUlgdfstx9fizcxgVnq9 mo32lTRfs0C8aLE9D7Njon E9LMTpfLIr InlvwFKEoB2vutrxf1qhde ueFwMfMXCiHLc5NVr4EWGg uCuxTgMcEB63BEE1ZLVckt FrP0UtEGIa wEyzTfF2x1T9Sb9DZ2DFTv lnA1XCBVAUIKcdpFV+PC90 eq25N9JtVvwvKhn7KEUoJI M5sLT7xZ1e ZQOpPQjpx0D4rVY5C4Afwg Ahci3vc4jjQZRfBSraO20l zFQgn4G7XLBtfGQ7KWMpuY gxPvRtfM82 Oyc+WTAfbMdxy5VoCqnah0 ltt5kzyLo9WixdBHLiazHw rKxnPBR6p0DbRe5lTLJhgD T2dND2sN3j QtHxFyO7AXsnC990RrMwpW ClRglmC39xR4QzdQH+PHRy Fpw6EEIllMayCD8fL2OlEP RpbmctbGVm qSkpVF9qLXEelhfiLAJstR 9fCBOuK1v1EuLkBlY8FAmb F4JrSCMwvvbsKn20yX1fFx ZvOfR7NDqh W2CtvdO5ETKrpUKeFCddOZ T3L77le0H8CMCrDMJrHCQ2 bSL2vZ0bbFouopkebMHkaG sgdmVydGlj RNgjQFueF976ZQKsfSgdEs NvZGluZyBEYXRlOiAgMDYv MjAvMjAyNDwvdGQ+PHRkIH M7zEilRAPw kINeALdmJs5wuPomyXouSR 9hODEtdtryKZFanU5lGPWo oIDneLhmGQ3sOZHczpvoy7 95VjLcOVK8 TKXxxANoV7TysN2dBfPtTZ NhULUaD0HdrCNvOBytP258 FIzcDpX2WWUadfYaS3AfGL FsaWduOiB0 w2X3Qe8Fo7CadrzfK9UukY NoTkQeRxccYEn1B4SdPpud dHI+KJ02DRGqJB27TXr6CH Y3cJriSEvb DPKpZ2HlzZ7tMoUxBOKmWH RkOyc+PHRhYmxlIHdpZHRo EDyyASAeKaXwqChoVY1dYx 9yZGVyLWNv fUqhsDWaVfBuf5jgJJItRY fnJG3qyFqgS2RgxJA8VZLs z8m2Lq64I25gY9NxtAQ+PG NqvJE2gCH2 hP8gQnKrYoL8YTyeI976Pc HvvXCyQqdxp8dvl1yrtWu2 VaA5XMQrdfFvdTxxVNZ7h7 SoNy26H86r IHdpZHRoPSIxNSUiIHZhbG fgil2ohP0tFr1+PGNvbCB3 bDN7xQ0iXwTaKjX9GCbyM4 49InRvcCIv Cgelr5zdy9xtsQa9ZjSaOR EeejRziChnSMK8v2PcYu59 B3PgtVowf7DeRkp0la71jK Rdo2U4cBY7 L2DfSWCojygxxERphJtaDP 0fPPVrmemeKFAezR8dPSBj O1f0IaAdEqI8VFxsK1Dilj T0GXCuqBAo FKSldFWKdZ1qcninb9zraa apHzSnTYUtUHg8YQh8ZXCi bZtnWoQyBQS4RdG8GKI8jL DqtD3qbPnd noiriF9nKvg+SNA0nKUtaM AEOO0dSgtfyBH+PHRkIHN0 hSreCNmaLCFhaM1aKCMuX4 b8PeJcZgR4 AGafS4RtnqX8PHDrfRXhRD IxmORDqE2wjovhr8fijtoe NnZePPDxOWv2FLb6VVOysH duOiBsZWZ0 XhE1FQT3sFRftO8dmSbcvh ewoR6iVvf+QmlydGggRGF0 HKt6G2MgXsw5WOMziYhlCT 0ncGFkZGlu Pg1syJdmeIjoHD1rDFRccf phv103LrSkf9bwENIaeMOj DIxnKLH0V33av7R8SOCqDK DeNKL7qUU2 rN6jpFxwumesbTKggJrkpw RzhXsrZWzfWCrwE369CFJt iIloLqPmHJc0U3ThXwg3CQ AtfCbfEU8e dJWzLVqhNn7orNgsgKypVK 6fGXDvdqgrl007OhHau0vf AXFxiXJcODteRVP1I51io5 D5QHSzFBLe TSM6uJU3bP1gwTuvvixlqQ VmdDsgdmVydGljYWwtYWxp S188WBJmkDcqUiCybOd0V6 IxStv8VYRc zUogSY5zvQUmJJmbVo2myX xweNbvXI9aBJXdrvkba898 UuYnt2xrJTPamNRaOWptEJ H2Y09qw3A0 BYZtEXPpFEZ6hDZ1fX4bfQ lnbjogbGVmdDsgdmVydGlj VJgiURclZ256APIztBomNm BhdGllbnQg LZpgXVa3O0GvYlzicXA+PC 72WKCqFS59pQVuwWUee7ft yAl8AmDbEYIjNAQ7iFluZF bxb8TrCWEi G52yfNVkx1F8TNHimDuqkX DiHhQpdPJ8gL7oDRtifvyz u2wyhycaLeyuq3oois93dR 70S67mHHed ZHRoPSIzMCUiIHZhbGlnbj 3bdE9vEr4+YVDhcKR9kCN7 sY3kENUuVjW6YRekO608Sh RvcCIvPjxj w5jkp0wljNw3PaQ2PMJeoy TzoJodKYM6n8WrDz40H06h IHdpZHRoPSIyMCUiIHZhbG gneb7iaB0c Ii8+JSYjsFQ1cJP7pO0iJc IvAaC7IFsxU584EdZjkMMb TzmqJ06pE7XyjFM+PHRyPj i3KGPlyLrl II9roJJmYSplCf5sEKL2Nc JwWmNdFYypL9PcNLOxbbug qzetfWP1DLFpBMHdhA25Kj 9udDogMTBw eXSWvT0nuejun4quvywhFo LsVJDyAXg0JOo9AJFggQen SnFjJWN1SmI1ZTP4jHSrdH 1hbGlnbjog yK9hE4AaSBEmdwrlTl18nX 0pHfEsLsQ4LInlCft+UEhJ CAUXDDRKWAIJRF3NEE27YU 30dWHgx2V7 zHF2L5DzDDFmzbntauxrzM O9SSUdDOEqgC92vMEfWXhm Wz7zt8V5m172UTIoOQCcbP 84Tb8dyCoe LVGurLHTnS2rricrt4hedc zfOvNeHWIuVFa9ULr1FXXl uTflEsJmNQH8CtM9WXY1mU NryA2moPif eysxaA4zRcw+MTIvMjcvMT f5PudacBF+JTRsZTB4dQtv WFpcRLGsdY1rOKAwW2a0Ca HrIwN8TTmk O5PuZDDxryjfZv75vX2rZq TmCwC6DAbpA9AuywY0XCDj lIWzGIxcLXM7S87ai0V1AA MwMDAwMDA7 bVW8iE8gsSsixpioyPQgqB umgfHwzIrtVKihRGzsT834 IHRvcDsnPjUxIFllYXJzPC 37UM01uRJc c3L9tYA2Z1XvRVAaetsqsz dweBT1ZYWjEVQaoV31aVOp HOwlDv8uw1C7d606VGWwZC ZivU15Jm4n iCisXNTplZUVhO8xkbwac3 kcsvbjMrLpKGYwCTz8JIk4 IGUriCylSkUwJUI4HoT6FS C1qVGeiF1x iLzukmosbC8bMsh+RmVtYW onME21ND19eGDyv9H6cPC3 O0OnOBKrabuqujlhdBH7OK UrUPCahH78 yPIjJUhpKu5pm1C3b347HV KeKCVmhD74Hb0mhThaSDQv yAOFiM2twfdpo2exgxxnRt AwMDAwMDt0 YGm8XALshMcxJtSdBQR8Zu J7JCB9tUEkcV0xrXznjbgy mJ6rKjs+C9U5kON1gFKpcI wvdGQ+PC90 ad25C9WwBbcrWxd5ZGYdMO N9iIZ3nU3uTJYrVMbhc8N0 uDV3J7KwlxXizh3fy4smAY IfYGbjT42r qAVfz5V0NYAnhNK6IYKysR qqYbPdiB89Zjh+PGNvbGdy a8PfOikmu2bze0ldjCb2Uv MwJSIgdmFs eAvtRAV2g8BhKp61O34vWG dpZHRoPSIzMCUiIHZhbGln vp5xvG0wBa4+NTFegLO5fF V2oA2dEoSp KlK0MAbwO411PnHjgFYeJh jbq5ncn0ettJf6KuOrBMUu laPotNwxWSX1m1JdYp20L1 TgpNmdi9Cu Hiw6yy34pHJzo1W9zSF3B9 JvPJQqfqnpjAQsvXtcZY4p PAVebuymNSWduL5qPHNnQ4 u9LmDbOoS5 HKgdI5TkekD2SNQvhAXaZC EzqDJFuK9rueldq5sgveza DbIyEQEwJVf8RAc4GIEtzZ duOiBsZWZ0 FkE2PCJ0kKAscS7viUwhyj tybI7aCnh+JHj0k7cmeXHl UB1ajRL4PT88OI27eLNqn8 G3eJM7F9Ys WXHpmidffaiqdAM8WEWyZB LnxU81Fq8woVivHp4hUYNa YSW7DYWxnAQiU5OwuA8vQw AjMDAwMDAw U2GwsDMaATjxW921NBxbDd F3RTCmxrLwG8BeKMBhlHsg PgP0v3B7Mf7RQD78LF00DA 94sTXui5S0 nJS9T3NoDWXsktulhszhkD J6MJVlJXEeuD16Im1jwMyf Mj5sHCSbFOD9LPUsnFMpM6 TotJ8pJnEx ERYnOSVhF5OylCEtRVycA3 97RBccRmC7NBMsjxTpE0Qi TOScyZswRaK4e6D5Bv0GBm 78ZS97UU62 vUVyh2V6cBP7R1MjNJTpgc iypsnbwQC8ZXLbFODsaJ75 Dc8dxYozOj5oPUEyZGK2KU RyaUTkY0Qs wR7jMpTyZLUsEHTzU9DqdN RbMJdzI687BQwfFrY4UWIx wdTkC8MqJQRbsAjyFwL1t2 A1Eh4HTMsj olr0S6WbWspvmGQ+PC90YW WmLQ41rVOapTOlw4ypfBr8 IaVpIYBhQKG8iOblVJedp6 LzGVWmG43n oHJcu8Y1QCHjb (more content not included)... Normal [facility] Consent for Procedure/Surger yon 11-07-2023 Consent for Procedure/Surgery [id number]#[id number] 0TIFF Normal [facility] Consent for Treatmenton 10-20 Consent for Treatment [id number]#[id number] 0TIFF Normal [facility] Inpatient Patient Summaryon 11-07-2023 Inpatient Patient Summary [place] [id number] Clinical Summary Person Information Name: FELY MELÉNDEZ Age: 53 Years : 1970 Sex: Female PCP: CARRIE TALBOT MD Marital Status: Race: White Ethnicity: Non- or Language: Serbian Visit Id: Visit Reason: GROSS HEMATURIA Speciality: Acuity: Enc Type: Outpatient Med Service: Surgery Arrival: 11/07/2023 09:24:15 Discharge: Dispo Type: Address: [address] [place] [id number] Provider Notes: Diagnosis: Gross hematuria; OAB (overactive [...] EU - Cystoscopy Discharge Instructions (CUSTOM) Normal [facility] IntraOperative Documentson 0 11-07-2023 IntraOperative Documents [id number] 0TIFF [facility] Lab Reportson 11-07-2023 Lab Reports [id number]#[id number] 0TIFF [facility] Main OR Intraoperative Recor don 11-07-2023 Main OR Intraoperative Record IntraOp Document Type FTURO Summary Primary Physician: Gemma Blanco MD Finalized Date/Time: 11/07/23 10:45:52 Pt. Name: FELY MELÉNDEZ/Sex: 1970 Female Med Rec #: [id number] Physician: Gemma Blanco MD Financial #: [id number] Pt. Type: O Room/Bed: / Admit/Disch: 11/07/23 [...] Evi Pitt Role Performed Surgeon - Primary E Commerce Manager - Primary Scrub - Primary Time In [...] Class 2 - Clean-Contaminated Last Modified By: rGzegorz GARLAND, Magali Pitt 11/07/23 10:30:16 General Case [...] Verified (If Participants Grzegorz GARLAND, Magali Applicable) SocoJoselito Muñoz LPN, Jessica D Time Out Complete 11/07/23 [...] 10:40 Magali Lantigua RN 11/07/23 10:45 Normal [facility] Main OR Preoperative Recordo n 11-07-2023 Main OR Preoperative Record Holding Area Document Type FTURO Summary Primary Physician: Gemma Blanco MD Finalized Date/Time: 11/07/23 09:53:28 Pt. Name: FELY MELÉNDEZ/Sex: 1970 Female Med Rec #: [id number] Physician: Gemma Blanco MD Financial #: [id number] Pt. Type: O Room/Bed: / Admit/Disch: 11/07/23 [...] JARETT Sanchez RN, Ruthann 11/07/23 09:53 Normal [facility] Operative Reporton Operative Report Patient: [...] OAB and adrenal adenoma workup . Normal [facility] Comment on above: Result Comment: Elec tronically Signed By: Gemma Blanco MD\.br\Date and Time Signed: 11/07/23 10:42 EDT Outpatient Surgery Discharge Instructionon 11-07-2023 Outpatient Surgery Discharge Instruction [id number] 0TIFF Normal [facility] Outpatient Surgery Discharge Instruction [place] [id number] Patient Discharge Instructions PERSON INFORMATION Name: FELY [...] to serve you. Thank you for choosing [facility] Normal [facility] Progress Note-Physicianon Progress Note-Physician Patient: [...] day, # 1 tab(s), Refills(s) 0, Pharmacy: [facility], 163, cm, 10/03/23 10:16:00 EDT, Height/Length Dosing, 113.5, kg, 10/03/23 10:16:00 EDT, Weight Dosing... dexamethasone 1 mg oral tablet: 1 mg = 1 tab(s), Oral, Once, Take at 11 PM; Have cortisol level drawn at 8 AM the next day, # 1 tab(s), Refills(s) 0, Pharmacy: [facility], 163, cm, 10/03/23 10:16:00 EDT, Height/Length Dosing, 113.5, kg, 10/03/23 10:16:00 EDT, Weight Dosing... mirabegron 50 mg oral tablet, extended release: 50 mg = 1 tab(s), Oral, Daily, # 30 tab(s), Refills(s) 11, Pharmacy: [facility], 163, cm, 10/03/23 10:16:00 EDT, Height/Length Dosing, 113.5, kg, 10/03/23 10:16:00 EDT, Weight Dosing Documented Medications Documented Pepcid AC: 20 mg, Oral, Once losartan 50 mg Tab: 50 mg = 1 tab(s) metoprolol 25 mg ER Tab: 25 mg = 1 tab(s), Oral, Daily spironolactone 25 mg Tab: 25 mg = 1 tab(s) Impression and Plan Assessment and Plan: Diagnosis: Adrenal adenoma (MTD40-HZ D35.00, Working, Medical), Gross hematuria (WVG35-QK R31.0, Discharge, Medical), OAB (overactive bladder) (CBV91-FI N32.81, Discharge, Medical), TEAGAN (stress urinary incontinence, female) (EMZ65-EF N39.3, Working, Medical). 53 year old female [...] cysto neg -Follow up urine cytology Normal [facility] Comment on above: Result Comment: Elec tronically Signed By: Francis HERNANDEZ, Gemma Santana.br\Date and Time Signed: 11/07/23 10:46 EDT RAD - CT Reporton 11-07-2023 RAD - CT Report [id number]#1.00 TIFF Normal [facility] Urine Cytology ([facility])on 0 11-07-2023 Method of Extraction Cystoscopy Normal [facility] Comment on above: Performed By: #### 1 [id number] #### [facility] Laboratory [address] Number of Jars 1 Invalid Interpretation Code [facility] Comment on above: Performed By: #### 1 [id number] #### [facility] [address] Specimen Cystoscopy Normal [facility] Comment on above: Performed By: #### 1 [id number] #### [facility] [address] Type of Service Technical Only Normal [facility] Comment on above: Performed By: #### 1 [id number] #### [facility] [address] [place] [address] Lab Reportson 10-25-2023 Lab Reports [id number] 0TIFF Normal [facility] Lab Reportson 10-17-2023 Lab Reports [id number]#1.0 0TIFF Normal [facility] Patient Educationon 10-06-19 24 Patient Education Urology Dysuria Dysuria is pain [...] these instructions at home: Medicines ? Take dnlr-dvv-mduxclm and prescription medicines only as told by [...] provider. Document Revised: 12/18/2020 Document Reviewed: 12/18/2020 [employer] Patient Education ? 2022 [employer]. Hematuria, Adult Hematuria is blood in the [...] these instructions at home: Medicines ? Take laqz-hxi-rgazwla and prescription medicines only as told by [...] follow y (more content not included)... Normal [facility] Formson 10-04-2023 Forms [id number]#1. 00TIFF Normal [facility] Lab Reportson 10-04-2023 Lab Reports [id number]#1.0 0TIFF [facility] Ambulatory Visit Summaryon 0 10-03-2023 [...] Pharmacy Information [facility]: [address], [place] [id number] [phone] Allergies Cipro (Unknown) Nyquil Cold Medicine (Unknown) [...] for choosing us for your care. Normal [facility] ED Note-Physicianon 03-27-20 24 ED Note-Physician [id number]#1.0 0TIFF Normal [facility] Urine Cultureon 08-09-2023 Bacteria identified Cx Nom (U) 75,000 colonies/ml mixed bacterial skin contaminants 2 Days PERFORMED BY: [place] [address] PATHOLOGIST [employer] ISABELA MUÑOZ M.D. Normal [facility] Comment on above: Performed By: #### C UU #### [address] Laboratory - Chemistry and C hemistry - challengeon 08-03-2023 Bilirubin Ql (U) Negative [facility] Glucose (U) [Mass/Vol] Negative [facility] Ketones Ql (U) Negative [facility] pH (U) 5.0 [pH] [facility] Specific gravity (U) [Rel density] 1.015 [facility] Urobilinogen (U) [Mass/Vol] 0.2 mg/dL [facility] Laboratory - Specimen inform ationon 08-03-2023 Appearance (U) clear [facility] Color (U) yellow [facility] Laboratory - Urinalysison Leukocyte esterase Test strip Ql (U) Negative [facility] Nitrite Ql (U) Negative [facility] Protein Ql (U) + [facility] No Panel Informationon 08-02 Urine Occult Blood + [facility] XR KNEE 4+ VIEWS LEFTon XR [...] Weight Tips; Status:Complete - Retrospective Authorization; Done: [id number] Some eating tips that can help you lose weight.; Status:Complete - Retrospective Authorization; Done: [id number] SocHx: Current smoker You need to quit smoking.; Status:Complete - Retrospective Authorization; Done: [id number] Tobacco Use Screening; Status:Complete; Done: [id number] You need to stop smoking. Though it is not easy, more than half of all adult smokers have quit. We encourage you to write down all the reasons you should quit smoking and set a quit date for yourself. Ask us how we can help. You may also call 4-450-LLXSTakkleNOW for free resources and assistance.; Status:Complete - Retrospective Authorization; Done: [id number] Patient Instructions Please bring all medicines, vitamins, [...] negative for complaint. Vitals Vital Signs Recorded: [id number] 09:55AM Heart Rate60, L Radial Vrojmxpw447, LUE, Sitting Vuibozpiq35, LUE, Sitting Height5 ft 4 in Iivpak654 lb BMI Duhmupbwmu19.2 kg/m2 BSA Calculated2.11 Tobacco Usea) Yes Patient [...] no ma (more content not included)... Normal [facility] Tobacco Screening.on 023 Fall risk assessment c) Not medically indicated [facility] [address] DO Work Phone: Tobacco use status [facility] a) Yes -[facility] [facility] 250 DO Work Phone: Tobacco Screening. Yes [facility] [facility] 250 DO Work Phone: [...] we can help. You may also call 0-890-VWTPNOW for free resources and assistance.; Status:Complete - Retrospective Authorization; Done: 11Aug2022 Tobacco Use Screening; Status:Complete; Done: [id number] Patient Instructions Please bring all medicines, vitamins, [...] to retrieve her recent Holter monitor from [place]. I suggested a trial of a [...] VITALSon 08-11-2022 Adult depression screening assessment No [facility] 250 DO Work Phone: Tobacco Screening.on 023 Tobacco use status [facility] a) Yes [facility] 250 DO Work Phone: Tobacco Screening. Yes [facility] [facility] y [address] DO Work Phone: ECHOCARDIO M/2D COMPLETEon 0 06-27-2022 ECHOCARDIO M/2D COMPLETE Patient: FELY MELÉNDEZ Exam Date: 06/27/2022 : 1970 Gender:F Ordering : DR CARRIE TALBOT M.D. Admission #: [id number] Family : Order #: [id number] CLICK HERE TO VIEW EXAM ECHOCARDIOGRAM REPORT [...] M.D. on 06/28/2022 at 19:30 Normal [facility] BNPon 06-10-2022 Natriuretic peptide B (Bld) [Mass/Vol] 384.0 pg/mL Normal <=900.0 [facility] Comment on above: Performed By: #### B BUREAU DIRECTOR, BMP, HSTROPN ####[facility] [address] [place], [place] [address]Dr. Alis Yifan CBC AUTO DIFFon 06-10-2022 BASO # 0.0 103/ul Normal 0.0-0.1 [facility] Comment on above: Performed By: #### C BC ####[facility] Riizp[address] [place], [place] [address]Dr. Kavitatrace Saha Basophils/100 WBC (Bld) 0.5 % Normal 0.2-2.0 [facility] Comment on above: Performed By: #### C BC ####[facility] Ow[address]fx[address] [place], [place] [address]Dr. Kavitatrace Saha EO # 0.1 103/ul Normal 0.0-0.7 [facility] Comment on above: Performed By: #### C BC ####[facility] Rxttskaijx[address] [place], [place] [address]Dr. Alis Yifan Eosinophils/100 WBC (Bld) 1.6 % Normal 0.9-7.0 [facility] Comment on above: Performed By: #### C BC ####[facility] Jtnz[address]xt[address] [place], [place] [address]Dr. Alis Saha Erythrocyte distribution width (RBC) [Ratio] 15.9 % Critically high 11.0-15.0 [facility] Comment on above: Performed By: #### C BC ####[facility] Lstzhxdtfe[address] [place], [place] [address]Dr. Alis Saha Hematocrit (Bld) [Volume fraction] 37.1 % Normal 36.0-48.0 [facility] Comment on above: Performed By: #### C BC ####[facility] [address]aw[address] [place], [place] [address]Dr. Kavitatrace Saha Hemoglobin (Bld) [Mass/Vol] 12.2 g/dL Normal 12.0-16.0 [facility] Comment on above: Performed By: #### C BC ####[facility] Wll[address]liqv[address] [place], [place] [address]Dr. Alis Saha IG # 0.02 10e3/ul Normal 0.00-0.03 [facility] Comment on above: Performed By: #### C BC ####[facility] Id[address]vx[address] [place], [place] [address]Dr. Kavitatrace Saha IG % 0.2 % Normal 0.0-0.5 [facility] Comment on above: Performed By: #### C BC ####[facility] Vnok[address]du[address] [place], [place] [address]Dr. Alis Saha LYMPH # 3.2 103/ul Normal 1.2-3.8 [facility] Comment on above: Performed By: #### C BC ####[facility] Woq[address]urb[address]xc[address] [place], [place] [address]Dr. Alis Saha Lymphocytes/100 WBC (Bld) 37.3 % Normal 20.5-60.0 [facility] Comment on above: Performed By: #### C BC ####[facility] Wqrtvrktol[address] [place], [place] [address]Dr. Alis Saha MANUAL DIFF REQ NO Normal [facility] Comment on above: Performed By: #### C BC ####[facility] Ipmyrrpxhm[address] [place], [place] [address]Dr. Alis Saha MCH (RBC) [Entitic mass] 29.8 pg Normal 26.7-34.0 [facility] Comment on above: Performed By: #### C BC ####[facility] [address] [place] [address]Dr. Alis Saha MCHC (RBC) [Mass/Vol] 32.9 g/dL Normal 29.9-35.2 [facility] Comment on above: Performed By: #### C BC ####[facility] [address] [place] [address]Dr. Alis Saha MCV (RBC) [Entitic vol] 90.5 fL Normal 81.0-99.0 [facility] Comment on above: Performed By: #### C BC ####[facility] Wqiyewamyj[address] [place], [place] [address]Dr. Alis Yifan MONO # 0.4 103/ul Normal 0.3-0.8 [facility] Comment on above: Performed By: #### C BC ####[facility] B[address] [place], [place] [address]Dr. Kavitatrace Saha Monocytes/100 WBC (Bld) 4.6 % Normal 1.7-12.0 [facility] Comment on above: Performed By: #### C BC ####[facility] [address] [place], [place] [address]Dr. Alis Saha NEUT # 4.8 103/ul Normal 1.4-6.5 [facility] Comment on above: Performed By: #### C BC ####[facility] Eirhpoitop[address] [place], [place] [address]Dr. Kavitatrace Saha Neutrophils/100 WBC (Bld) 55.8 % Normal 43.0-75.0 [facility] Comment on above: Performed By: #### C BC ####[facility] Y[address] [place], [place] [address]Dr. Alis Yifan Platelet mean volume (Bld) [Entitic vol] 9.9 fL Normal 9.5-13.5 [facility] Comment on above: Performed By: #### C BC ####[facility] [address] [place], [place] [address]Qk. Alis Saha PLT 265 103/ul Normal 150-450 [facility] Comment on above: Performed By: #### C BC ####[facility] [address] [place], [place] [address]Ja. Alis Saha RBC 4.10 106/ul Critically low 4.20-5.[address] [facility] Comment on above: Performed By: #### C BC ####[facility] [address] [place], [place] [address]Gc. Alis Saha WBC 8.7 103/ul Normal 4.0-11.0 [facility] Comment on above: Performed By: #### C BC ####[facility] [address] [place], [place] [address]Oo. Alis Saha Covid-19 PCR (CVDTBH)on 05-23 SARS-CoV-2 (COVID-19) RNA AMANDA+probe Ql (Unsp spec) Not detected Normal NOT DETECTED [facility] Comment on above: Result Comment: When [...] for this test is supported by the [place] of Health and Human Service's declaration that [...] used). Performed By: #### C VDTBH #### [facility] [address] [place], [place] [address] Dr. Alis Saha PROF CHEM 8 (BAS METB)on Anion gap [Moles/Vol] 11.7 mmol/L Normal [facility] Comment on above: Performed By: #### B BUREAU DIRECTOR, BMP, HSTROPN ####[facility] [address] [place] [address]Dr. Alis Saha Calcium [Mass/Vol] 8.8 mg/dL Normal 8.5-10.1 [facility] Comment on above: Performed By: #### B BUREAU DIRECTOR, BMP, HSTROPN ####[facility] [address] [place] [address]Dr. Alis Saha Chloride [Moles/Vol] 108 mmol/L Critically high 98-107 [facility] Comment on above: Performed By: #### B BUREAU DIRECTOR, BMP, HSTROPN ####[facility] Q[address]wnqscx[address] [place], [place] [address]Dr. Alis Saha CO2 [Moles/Vol] 23.7 mmol/L Normal 21.0-32.0 [facility] Comment on above: Performed By: #### B BUREAU DIRECTOR, BMP, HSTROPN ####[facility] W[address]umr[address] [place], [place] [address]Dr. Alis Saha Creatinine [Mass/Vol] 0.70 mg/dL Normal 0.55-1.02 [facility] Comment on above: Performed By: #### B BUREAU DIRECTOR, BMP, HSTROPN ####[facility] X[address]wc[address] [place], [place] [address]Dr. Alis Saha EGFR-AF PERUVIAN >60 Normal >=60 [facility] Comment on above: Performed By: #### B BUREAU DIRECTOR, BMP, HSTROPN ####[facility] [address]uc[address] [place], [place] [address]Dr. Alis Saha EGFR-NON AF PERUVIAN >60 Normal >=60 [facility] Comment on above: Performed By: #### B BUREAU DIRECTOR, BMP, HSTROPN ####[facility] [address] [place] [address]Dr. Alis Saha Glucose [Mass/Vol] 119 mg/dL Critically high 74-106 [facility] Comment on above: Performed By: #### B BUREAU DIRECTOR, BMP, HSTROPN ####[facility] [address] [place] [id number]. Alis Saha Potassium [Moles/Vol] 3.4 mmol/L Critically low 3.5-5.1 [facility] Comment on above: Performed By: #### B BUREAU DIRECTOR, BMP, HSTROPN ####[facility] [address] [place] [id number]. Alis Saha Sodium [Moles/Vol] 140 mmol/L Normal 136-145 [facility] Comment on above: Performed By: #### B BUREAU DIRECTOR, BMP, HSTROPN ####[facility] [address] [place] [address]Dr. Alis Saha Urea nitrogen [Mass/Vol] 14.0 mg/dL Normal 7.0-18.0 [facility] Comment on above: Performed By: #### B BUREAU DIRECTOR, BMP, HSTROPN ####[facility] [address] [place] [address]Dr. Alis Saha Urea nitrogen/Creatinine [Mass ratio] 20.0 mg/mg Normal [facility] Comment on above: Performed By: #### B BUREAU DIRECTOR, BMP, HSTROPN ####[facility] [address] [place] [address]Dr. Alis Saha TROPONIN, HIGH SENSITIVITYon 06-10-2022 HSTROP 9.9 pg/mL Normal 4.0-51.3 [facility] Comment on above: Result Comment: CUT- OFF POINTS HAVE BEEN ESTABLISHED BASED ON THE FOURTH UNIVERSAL DEFINITIONS OF MYOCARDIAL INFARCTION. THE UPPER REFERENCE LIMIT (URL) OF TROPONIN, DEFINED THE 99TH PERCENTILE OF cTnI DISTRIBUTION IN A REFERENCE POPULATION, HAS BEEN CONFIRMED THE DECISION THRESHOLD FOR VT DIAGNOSIS. Performed By: #### B BUREAU DIRECTOR, BMP, HSTROPN ####[facility] [address] [place] [address]Dr. Alis Saha XR CHEST 1 Von 06-10-2022 [...] by: POPPY GREEN Date: 2022-06-09 23:02 Normal [facility] XR LSPINE MIN 4 VIEWSon 01-20 XR [...] JUAN CARLOS VILLATORO Date: 2022-02-02 07:17 Normal [facility] XR CSPINE 2_3 VIEWSon 2021 XR CSPINE [...] CARLOS VILLATORO Date: 2021-10-01 07:13 Normal [facility] CBC AUTO DIFFon 09-30-2021 BASO # 0.0 103/ul Normal 0.0-0.1 [facility] Comment on above: Performed By: #### C BC ####[facility] [address] [place] [id number] Alis Saha Basophils/100 WBC (Bld) 0.4 % Normal 0.2-2.0 [facility] Comment on above: Performed By: #### C BC ####[facility] [address]uv[address] [place] [address]Dr. Alis Saha EO # 0.1 103/ul Normal 0.0-0.7 [facility] Comment on above: Performed By: #### C BC ####[facility] [address]yg[address] [place], [place] [address]Dr. Alis Saha Eosinophils/100 WBC (Bld) 1.6 % Normal 0.9-7.0 [facility] Comment on above: Performed By: #### C BC ####[facility] W[address]aqkl[address] [place], [place] [address]Dr. Alis Saha Erythrocyte distribution width (RBC) [Ratio] 15.1 % Critically high 11.0-15.0 [facility] Comment on above: Performed By: #### C BC ####[facility] Y[address]uxzx[address] [place], [place] [address]Dr. Alis Saha Hematocrit (Bld) [Volume fraction] 41.9 % Normal 36.0-48.0 [facility] Comment on above: Performed By: #### C BC ####[facility] Mqjg[address]fawl[address] [place], [place] [address]Dr. Alis Saha Hemoglobin (Bld) [Mass/Vol] 13.5 g/dL Normal 12.0-16.0 [facility] Comment on above: Performed By: #### C BC ####[facility] Qjtt[address]rt[address] [place], [place] [address]Dr. Alis Saha IG # 0.01 10e3/ul Normal 0.00-0.03 [facility] Comment on above: Performed By: #### C BC ####[facility] T[address]stsag[address] [place], [place] [address]Dr. Kavitatrace Saha IG % 0.1 % Normal 0.0-0.5 [facility] Comment on above: Performed By: #### C BC ####[facility] [address] [place], [place] [address]Dr. Alis Saha LYMPH # 2.3 103/ul Normal 1.2-3.8 [facility] Comment on above: Performed By: #### C BC ####[facility] [address]af[address] [place] [id number]. Kavitatrace Saha Lymphocytes/100 WBC (Bld) 27.9 % Normal 20.5-60.0 [facility] Comment on above: Performed By: #### C BC ####[facility] [address] [place] [id number]. Alis Saha MANUAL DIFF REQ NO Normal [facility] Comment on above: Performed By: #### C BC ####[facility] [address]oz[address] [place] [id number]. Alis Saha MCH (RBC) [Entitic mass] 28.8 pg Normal 26.7-34.0 [facility] Comment on above: Performed By: #### C BC ####[facility] [address] [place] [id number]. Alis Saha MCHC (RBC) [Mass/Vol] 32.2 g/dL Normal 29.9-35.2 [facility] Comment on above: Performed By: #### C BC ####[facility] [address]gb[address] [place] [id number]. Alis Saha MCV (RBC) [Entitic vol] 89.3 fL Normal 81.0-99.0 [facility] Comment on above: Performed By: #### C BC ####[facility] Q[address]isfgi[address] [place] [id number]. Alis Saha MONO # 0.5 103/ul Normal 0.3-0.8 [facility] Comment on above: Performed By: #### C BC ####[facility] [address]wb[address] [place] [id number]. Alis Saha Monocytes/100 WBC (Bld) 5.6 % Normal 1.7-12.0 [facility] Comment on above: Performed By: #### C BC ####[facility] [address] [place], [place] [address]Dr. Alis Saha NEUT # 5.3 103/ul Normal 1.4-6.5 [facility] Comment on above: Performed By: #### C BC ####[facility] Q[address]psjgzyl034[address] [place] [id number]. Alis Saha Neutrophils/100 WBC (Bld) 64.4 % Normal 43.0-75.0 [facility] Comment on above: Performed By: #### C BC ####[facility] [address] [place] [id number]. Alis Saha Platelet mean volume (Bld) [Entitic vol] 9.5 fL Normal 9.5-13.5 [facility] Comment on above: Performed By: #### C BC ####[facility] [address] [place] [address]Dr. Alis Saha PLT 316 103/ul Normal 150-450 [facility] Comment on above: Performed By: #### C BC ####[facility] [address] [place] [address]Dr. Alis Saha RBC 4.69 106/ul Normal 4.20-5.40 [facility] Comment on above: Performed By: #### C BC ####[facility] [address] [place] [address]Dr. Alis Saha WBC 8.2 103/ul Normal 4.0-11.0 [facility] Comment on above: Performed By: #### C BC ####[facility] [address]xc[address] [place] [address]Dr. Alis Saha GLYCOHEMOGLOBIN A1Con 2021 ADA RECOMMENDATION SEE BELOW Normal [facility] Comment on above: Result Comment: ADA RECOMMENDED LIMIT 4.0 - 6.0 ADA THERAPEUTIC TARGET < 7.0 ACTION SUGGESTED > 7.0 Performed By: #### A 1C ####[facility] [address] [place] [address]Dr. Alis Saha Glucose [Mass/Vol] 128 mg/dL Normal [facility] Comment on above: Performed By: #### A 1C ####[facility] [address] [place] [id number]. Alis Saha HbA1c (Bld) [Mass fraction] 6.1 % Normal 4.5-6.2 [facility] Comment on above: Performed By: #### A 1C ####[facility] [address] [place] [address]Dr. Alis Saha PROF CHEM 8 (BAS METB)on Anion gap [Moles/Vol] 11.5 mmol/L Normal [facility] Comment on above: Performed By: #### T SH, BMP #### [facility] [address] [place] [address] [address] Alis Saha Calcium [Mass/Vol] 8.7 mg/dL Normal 8.5-10.1 [facility] Comment on above: Performed By: #### T SH, BMP #### [facility] [address] [place] [address] Dr. Alis Saha Chloride [Moles/Vol] 104 mmol/L Normal 98-107 [facility] Comment on above: Performed By: #### T SH, BMP #### [facility] [address] [place] [address] Dr. Alis Saha CO2 [Moles/Vol] 25.5 mmol/L Normal 21.0-32.0 [facility] Comment on above: Performed By: #### T SH, BMP #### [facility] [address] [place] [address] Dr. Alis Saha Creatinine [Mass/Vol] 0.85 mg/dL Normal 0.55-1.02 [facility] Comment on above: Performed By: #### T SH, BMP #### [facility] [address] [place] [address] Dr. Alsi Saha EGFR-AF PERUVIAN >60 Normal >=60 [facility] Comment on above: Performed By: #### T SH, BMP #### [facility] [address] [place] [address] Dr. Alis Saha EGFR-NON AF PERUVIAN >60 Normal >=60 [facility] Comment on above: Performed By: #### T SH, BMP #### [facility] [address] [place] [address] Dr. Alis Saha Glucose [Mass/Vol] 101 mg/dL Normal 74-106 [facility] Comment on above: Performed By: #### T SH, BMP #### [facility] [address] [place] [address] Dr. Alis Saha Potassium [Moles/Vol] 4.0 mmol/L Normal 3.5-5.1 [facility] Comment on above: Performed By: #### T SH, BMP #### [facility] [address] [place] [address] Dr. Alis Saha Sodium [Moles/Vol] 137 mmol/L Normal 136-145 [facility] Comment on above: Performed By: #### T SH, BMP #### [facility] [address] [place] [address] Dr. Alis Saha Urea nitrogen [Mass/Vol] 13.0 mg/dL Normal 7.0-18.0 [facility] Comment on above: Performed By: #### T SH, BMP #### [facility] [address] [place] [address] Dr. Alis Saha Urea nitrogen/Creatinine [Mass ratio] 15.3 mg/mg Normal [facility] Comment on above: Performed By: #### T SH, BMP #### [facility] [address] [place] [address] Dr. Alis Saha TSHon 09-30-2021 TSH 1.548 uIU/mL Normal 0.358-3.740 [facility] Comment on above: Performed By: #### T SH, BMP #### [facility] [address] [place] [address] Dr. Alis Saha TSH RANGE SEE BELOW Normal [facility] Comment on above: Result Comment: <0.3 4 UIU/ml HYPERTHYROID 0.34-5.60 UIU/ml EUTHYROID >5.60 UIU/ml HYPOTHYROID Performed By: #### T SH, BMP #### [facility] [address] [place] [address] Dr. Alis Saha VC CONSULT FOLLOWUPon 2021 VC CONSULT FOLLOWUP Patient: FELY MELÉNDEZ Exam Date: 07/19/2021 : 1970 Gender:F Ordering : DR JUAN CARLOS VILLATORO M.D. Admission #: [id number] Family : Order #: [id number] CLICK HERE TO VIEW EXAM RADIOLOGY REPORT [...] MD on 07/19/2021 at 15:16 Normal [facility] VC EXT VENOUS RT LIMITEDon 0 07-19-2021 VC EXT VENOUS RT LIMITED Patient: FELY MELÉNDEZ Exam Date: 07/19/2021 : 1970 Gender:F Ordering : DR JUAN CARLOS VILLATORO M.D. Admission #: [id number] Family : Order #: [id number] CLICK HERE TO VIEW EXAM RADIOLOGY REPORT [...] to distal calf. Heat induced thrombus in engine repairer service distal calf 1.4 mm from PTV and [...] vein with occlusion of 2 associated incompetent engine repairer service veins No deep vein thrombus Dictated by: Juan Carlos Villatoro MD on 07/19/2021 at 14:36 Approved by: Juan Carlos Villatoro MD on 07/19/2021 at 14:37 Normal [facility] VC ENDOVENOUS ABL 1ST V RTon 07-14-2021 VC ENDOVENOUS ABL 1ST V RT Patient: FELY MELÉNDEZ Exam Date: 07/14/2021 : 1970 Gender:F Ordering : DR JUAN CARLOS VILLATORO M.D. Admission #: [id number] Family : Order #: [id number] CLICK HERE TO VIEW EXAM RADIOLOGY REPORT [...] Palacios M.D. on 07/14/2021 at 14:50 Normal [facility] Vital Signs Date Time Vital Sign Value Performing Clinician Facility 03-04-2024 10:12-0400 Body mass index (BMI) [Ratio] 42.05 kg/m2 [facility] Phone: [facility] 03-04-2024 10:12-0400 Body weight 111.13 kg Nando Landon DO Work Phone: [facility] 03-04-2024 10:12-0400 Diastolic blood pressure 94 mm[Hg] Nando Landon DO Work Phone: [facility] 03-04-2024 10:12-0400 Systolic blood pressure 142 mm[Hg] Nando Landon DO Work Phone: [facility] 02-14-2024 15:42-0400 Blood Pressure Location Mikhail NILL [facility] 02-14-2024 15:42-0400 Diastolic blood pressure 78 mm[Hg] Mikhail NILL [facility] 02-14-2024 15:42-0400 Heart rate 76 /min Mikhail NILL [facility] 02-14-2024 15:42-0400 Respiratory rate 16 /min Mikhail NILL [facility] 02-14-2024 15:42-0400 Systolic blood pressure 118 mm[Hg] Mikhail NILL [facility] 01-18-2024 11:13-0400 Body height 163.83 cm [facility] 01-18-2024 11:13-0400 Body mass index (BMI) [Ratio] 42 kg/m2 [facility] 01-18-2024 11:13-0400 Body weight 112.94 kg [facility] 01-18-2024 11:13-0400 Diastolic blood pressure 80 mm[Hg] [facility] 01-18-2024 11:13-0400 Heart rate 65 /min [facility] 01-18-2024 11:13-0400 Systolic blood pressure 146 mm[Hg] [facility] 11-03-2023 10:24-0400 Diastolic blood pressure 87 mm[Hg] Bonny Meyer MD Work Phone: [facility] 11-03-2023 10:24-0400 Systolic blood pressure 132 mm[Hg] Bonny Meyer MD Work Phone: [facility] 11-03-2023 10:04-0400 Body height 162.6 cm Bonny Meyer MD Work Phone: [facility] 11-03-2023 10:04-0400 Body mass index (BMI) [Ratio] 43.43 kg/m2 Bonny Meyer MD Work Phone: [facility] 11-03-2023 10:04-0400 Body weight 114.76 kg Bonny Meyer MD Work Phone: [facility] 11-03-2023 10:04-0400 Heart rate 68 /min Bonny Meyer MD Work Phone: [facility] 10-03-2023 09:53-0400 Diastolic blood pressure 106 mm[Hg] Zulema Orzech [facility] 10-03-2023 09:53-0400 Heart rate 73 /min Zulema Orzech [facility] 10-03-2023 09:53-0400 Respiratory rate 19 /min Zulema Orzech [facility] 10-03-2023 09:53-0400 Systolic blood pressure 146 mm[Hg] Zulema Orzech [facility] 08-09-2023 11:52-0400 Body height 163.83 cm [facility] 08-09-2023 11:52-0400 Body mass index (BMI) [Ratio] 41.8 kg/m2 [facility] 08-09-2023 11:52-0400 Body temperature 96.8 [degF] [facility] 08-09-2023 11:52-0400 Body weight 112.09 kg [facility] 08-09-2023 11:52-0400 Diastolic blood pressure 81 mm[Hg] [facility] 08-09-2023 11:52-0400 Heart rate 80 /min [facility] 08-09-2023 11:52-0400 Systolic blood pressure 114 mm[Hg] [facility] 05-31-2023 10:15-0500 Body height 163.83 cm Carrie Talbot Other [facility] 05-31-2023 10:15-0500 Body mass index (BMI) [Ratio] 42.89 kg/m2 Carrie Talbot Other [facility] [email or web address] Other 05-31-2023 10:15-0500 Body weight 115.12 kg Carrie Talbot Other [facility] 05-31-2023 10:15-0500 Diastolic blood pressure 83 mm[Hg] Carrie Talbot Other [facility] 05-31-2023 10:15-0500 Systolic blood pressure 124 mm[Hg] Carrie Talbot Other [facility] 04-20-2023 11:15-0500 Body height 163.83 cm Carrie Talbot Other [employer] Other 04-20-2023 11:15-0500 Body mass index (BMI) [Ratio] 42.58 kg/m2 Carrie Talbot Other [employer] Other 04-20-2023 11:15-0500 Body weight 114.31 kg Carrie Talbot Other [employer] Other 04-20-2023 11:15-0500 Diastolic blood pressure 88 mm[Hg] Carrie Talbot Other [employer] Other 04-20-2023 11:15-0500 Systolic blood pressure 138 mm[Hg] Carrie Talbot Other [employer] Other 02-21-2023 11:15-0400 Body height 163.83 cm Carrie Talbot Other [employer] Other 02-21-2023 11:15-0400 Body mass index (BMI) [Ratio] 41.91 kg/m2 Carrie Talbot Other [employer] Other 02-21-2023 11:15-0400 Body weight 112.49 kg Carrie Talbot Other [employer] Other 02-21-2023 11:15-0400 Diastolic blood pressure 86 mm[Hg] Carrie Talbot Other [employer] Other 02-21-2023 11:15-0400 Systolic blood pressure 130 mm[Hg] Carrie Talbot Other [employer] Other 12-02-2022 09:55-0400 Body height 162.56 cm Carrie Talbot Work Phone: [employer] DO Work Phone: 12-02-2022 09:55-0400 Body mass index (BMI) [Ratio] 41.2 kg/m2 Carrie Talbot Work Phone: [employer] DO Work Phone: 12-02-2022 09:55-0400 Body surface area Derived from formula 2.11 m2 Carrie Talbot Work Phone: [employer] DO Work Phone: 12-02-2022 09:55-0400 Body weight 108.86 kg Carrie Talbot Work Phone: [facility] [address] DO Work Phone: 12-02-2022 09:55-0400 Diastolic blood pressure 62 mm[Hg] Carrie Talbot Work Phone: [facility] 250 DO Work Phone: 12-02-2022 09:55-0400 Heart rate 60 /min Carrie Talbot Work Phone: [facility] 250 DO Work Phone: 12-02-2022 09:55-0400 Systolic blood pressure 118 mm[Hg] Carrie Talbot Work Phone: [facility] 250 DO Work Phone: 08-11-2022 13:37-0400 Diastolic blood pressure 86 mm[Hg] Carrie Talbot Work Phone: [facility] 250 DO Work Phone: 08-11-2022 13:37-0400 Systolic blood pressure 137 mm[Hg] Carrie Talbot Work Phone: [facility] 250 DO Work Phone: 08-11-2022 13:26-0400 Heart rate 62 /min Carrie Talbot Work Phone: [facility] DO Work Phone: 08-11-2022 13:24-0400 Diastolic blood pressure 88 mm[Hg] Carrie Talbot Work Phone: [facility] 250 DO Work Phone: 08-11-2022 13:24-0400 Systolic blood pressure 132 mm[Hg] Carrie Talbot Work Phone: [facility] 250 DO Work Phone: 08-11-2022 13:23-0400 Body height 162.56 cm Carrie Talbot Work Phone: [facility] 250 DO Work Phone: 08-11-2022 13:23-0400 Body mass index (BMI) [Ratio] 40.85 kg/m2 Carrie Talbot Work Phone: [facility] 250 DO Work Phone: 08-11-2022 13:23-0400 Body surface area Derived from formula 2.11 m2 Carrie Talbot Work Phone: [facility] 250 DO Work Phone: 08-11-2022 13:23-0400 Body weight 107.96 kg Carrie Talbot Work Phone: [facility] 250 DO Work Phone: 08-11-2022 13:23-0400 Diastolic blood pressure 90 mm[Hg] Carrie Talbot Work Phone: [facility] 250 DO Work Phone: 08-11-2022 13:23-0400 Systolic blood pressure 140 mm[Hg] Carrie Talbot Work Phone: [facility] 250 DO Work Phone: Encounters Encounter Date Encounter Type Care Provider Facility Start: 03-08-2024 End: 03-08-2024 Clinisync Result Encounter Nando Landon DO Work Phone: [facility] Unsolicited Start: 03-08-2024 End: 03-08-2024 Clinisync Result Encounter Nando Landon DO Work Phone: [facility] Unsolicited Start: 03-04-2024 End: 03-04-2024 Bamboo flowsheet Nando Landon DO Work Phone: [facility] Start: 03-04-2024 End: 03-08-2024 Bamboo flowsheet Nando Landon DO Work Phone: [facility] Start: 03-04-2024 End: 03-08-2024 Clinisync Result Encounter Nando Landon DO Work Phone: [facility] External Department Unsolicited Start: 03-04-2024 End: 03-04-2024 Patient encounter procedure Nando Landon DO Work Phone: [facility] Start: 03-04-2024 End: 03-04-2024 Periodic preventive med est patient 18-39 yrs Nando Landon DO Work Phone: [facility] Comment on above: Postmenopausal state ; Well woman exam with routine gynecological exam; Breast cancer screening by mammogram; Preoperative examination; Pelvic pain in female; Endometrial polyp Start: 03-04-2024 End: 03-04-2024 Preprocedural examination done Nando Landon DO Work Phone: [facility] Start: 03-04-2024 End: 03-04-2024 ambulatory NANDO LANDON Not Available Start: 02-14-2024 ambulatory Mikhail VENEGAS Facility : [facility] Start: 02-14-2024 End: 02-14-2024 Patient encounter procedure Mikhail VENEGAS [facility] [place] Start: 02-05-2024 End: 02-05-2024 ambulatory NANDO LANDON Not Available Start: 01-30-2024 End: 01-30-2024 ambulatory Zulema X Orabhinavch Facility:[facility] [place] Start: 01-30-2024 End: 01-30-2024 Patient encounter procedure Zulema X Orzech [facility] [place] Start: 01-19-2024 ambulatory Zulema Orabhinavch Facility: [place] Start: 01-18-2024 End: 01-18-2024 ambulatory [facility] Work Phone: Start: 01-18-2024 End: 01-18-2024 Patient encounter procedure [facility] Work Phone: Start: 01-09-2024 End: 01-09-2024 ambulatory Zulema X Orzech Facility:[facility] Start: 01-09-2024 End: 01-09-2024 Patient encounter procedure Zulema X Orzech [facility] Start: 01-08-2024 End: 01-08-2024 ambulatory NANDO LANDON Not Available Start: 12-06-2023 End: 12-06-2023 ambulatory NANDO LANDON Not Available Start: 11-07-2023 End: 11-07-2023 ambulatory Gemma LeeMiranda Garciaelizabeth Facility:[facility] Start: 11-07-2023 End: 11-07-2023 Patient encounter procedure Gemma LeeMiranda [facility] Start: 11-03-2023 End: 11-03-2023 ambulatory [facility] Start: 11-03-2023 End: 11-03-2023 Office outpatient visit 25 minutes Bonny Meyer MD Work Phone: [facility] Comment on above: Palpitations (Primar y Dx); Essential hypertension; Shortness of breath; BMI 40.0-44.9, adult (Multi); Current smoker Start: 10-03-2023 End: 10-03-2023 ambulatory Zulema X Orzech Facility:[facility] [place] Start: 10-03-2023 End: 10-03-2023 Patient encounter procedure Zulema X Orzech [facility] Start: 08-10-2023 ambulatory Zulema Orzech Facility: [facility] Start: 08-09-2023 End: 08-09-2023 Departed Referred MD Carrie Talbot Work Phone: [facility] [place] Work Phone: Start: 08-09-2023 End: 08-09-2023 ambulatory Carrie Talbot [facility] Work Phone: Start: 08-09-2023 End: 08-09-2023 Patient encounter procedure [facility] Work Phone: Start: 08-03-2023 End: 08-03-2023 ambulatory [facility] Work Phone: Start: 08-03-2023 End: 08-03-2023 Patient encounter procedure [facility] Work Phone: Start: 05-31-2023 End: 05-31-2023 ambulatory Carrie Talbot Other [employer] Other Start: 05-31-2023 Office outpatient vi sit 15 minutes Carrie Talbot [facility] Start: 05-31-2023 End: 05-31-2023 Patient encounter procedure [facility] Work Phone: Start: 05-25-2023 End: 05-25-2023 ambulatory ZOLTAN Lee SANTIAGO Not Available Start: 04-24-2023 End: 04-24-2023 ambulatory Carrie Talbot Other [employer] Other Start: 04-24-2023 Telephone encounter Carrie Talbot [facility] Start: 04-20-2023 End: 04-20-2023 ambulatory Carrie Talbot Other [employer] Other Start: 04-20-2023 Office outpatient vi sit 15 minutes Carrie Talbot [facility] Start: 03-28-2023 (Televisit) Televisit Carrie Gong [facility] Start: 03-28-2023 End: 03-28-2023 ambulatory Carrie Talbot Other [employer] Other Start: 02-21-2023 End: 02-21-2023 ambulatory Carrie Talbot Other [employer] Other Start: 02-21-2023 Office outpatient vi sit 25 minutes Carrie Talbot [facility] Start: 12-02-2022 ambulatory MD CARRIE TALBOT Facility: Start: 12-02-2022 Office outpatient vi sit 15 minutes [facility] Work Phone: Start: 08-18-2022 End: 08-18-2022 ambulatory Carrie Talbot Other [employer] Other Start: 08-18-2022 Telephone encounter Carrie Talbot [facility] Start: 08-11-[address] Bonny Meyer Facility: Start: 08-11-2022 Office consultation new/estab patient 60 min Carrie Talbot Work Phone: [facility] 250 DO Work Phone: Start: 08-05-2022 End: 08-05-2022 ambulatory Carrie Talbot Other [employer] Other Start: 08-05-2022 Nursing evaluation o f patient and report Carrie Talbot [facility] Start: 07-04-2022 End: 07-04-2022 ambulatory Carrie Talbot Other [employer] Other Start: 07-04-2022 Telephone encounter Carrie Talbot [facility] Start: 06-27-2022 End: 06-28-[address] CARRIE TALBOT Facility: Start: 06-22-2022 End: 06-22-2022 ambulatory Carrie Talbot Other [employer] Other Start: 06-22-2022 Telephone encounter Carrie Talbot [facility] Start: 06-14-2022 End: 06-14-2022 ambulatory Carrie Talbot Other [employer] Other Start: 06-14-2022 Telephone encounter Carrie HANNAH [facility] Start: 06-12-2022 End: 06-12-2022 ambulatory ELY DANIELLE [...] Facility:[facility] Start: 07-14-2021 End: 07-15-[address] JAUN CARLOS VILLATORO Facility:[facility] Procedures Date Procedure Procedure Detail Performing Clinician Start: 03-08-2024 ALL BASIC METABOLIC PANEL Nando Landon DO Work Phone: Start: 03-04-2024 IGP,APTIMA HPV,AGE GDLN Nando Landon DO Work Phone: Start: 11-07-2023 Cystoscopy Zulema Orz ech Cholecystectomy Carrie wilde Work Phone: Cholecystectomy Zulema Orzec h Colonoscopy Mikhail NILL Hysteroscopy Zulema Orzech Ligation of varicose vein Otis Talbot Work Phone: Stripping of vein Zulema batres Total colonoscopy Carrie mancuso Work Phone: Comment on above: over 10 years ago; Plan of Treatment Date Care Activity Detail Author Start: 10-28-2024 End: 10-28-2024 Patient encounter procedure 10/28/2024 10:10 AM EDT Office Visit [facility] [address] [place] [id number] Bonny Meyer MD [address] [place] [address] [facility] Start: 04-09-2024 End: 04-09-2024 Patient encounter procedure 04/09/2024 9:30 AM EST Office Visit [facility] [address] [place] [address] Nando Navarrete DO [address] [place], [place] [id number] [facility] Start: 03-04-2024 End: 03-04-2025 DXA Skeletal system Views for bone density DEXA bone density Imaging Routine Postmenopausal state Expected: 03/04/2024 (Approximate), Expires: 03/04/2025 [facility] Comment on above: Expected: 03/04/2024 (Approximate), Expires: 03/04/2025 Start: 03-04-2024 End: 05-04-2025 MG Breast - bilateral Screening Bilateral screening mammogram Imaging Routine Breast cancer screening by mammogram Expected: 03/04/2024, Expires: 05/04/2025 [facility] Work Phone: Comment on above: Expected: 03/04/2024 , Expires: 05/04/2025 Start: 03-04-2024 End: 03-04-2024 Patient encounter procedure 03/04/2024 10:00 AM EDT Office Visit [facility] [address] [place] [place] [address] Nando Navarrete, DO [address] [place] [address] Dr Zenon Madsen [place] [id number] Arrived [facility] Comment on above: Arrived Start: 01-21-2024 Influenza vaccination Influenz a Vaccine (Season Ended) [facility] Start: 01-18-2024 Patient referral [facility] Work Phone: Start: 08-09-2023 Bacteria identified in Urine by Culture [facility] Start: 08-09-2023 Patient referral [facility] Work Phone: Start: 01-20-2023 COVID-19 Vaccine ( season) COVID-19 Vaccine ( season) [facility] Start: 12-02-2022 FUV, Provider: Bonny Meyer, Status: Pen, Time: 9:40 AM FUV, Provider: Bonny Meyer, Status: Pen, Time: 9:40 AM -[facility] 250 DO Work Phone: Start: 2022 Zoster Vaccines (1 o f 2) Zoster Vaccines (1 of 2) [facility] Start: 2012 Screening for malign ant neoplasm of breast Mammogram [facility] Start: 1994 DTaP/Tdap/Td Vaccine s (1 - Tdap) DTaP/Tdap/Td Vaccines (1 - Tdap) [facility] Start: 1993 Screening for malign ant neoplasm of cervix [facility] Start: 1991 Hepatitis B Vaccines (1 of 3 - 19+ 3-dose series) Hepatitis B Vaccines (1 of 3 - 19+ 3-dose series) [facility] Start: 1990 Diabetes mellitus screening Diabetes Screening [facility] Start: 1990 Hepatitis C screening Hepatitis C [facility] Start: 1978 Pneumococcal Vaccine : Pediatrics (0 to 5 Years) and At-Risk Patients (6 to 64 Years) (1 of 2 - PCV) Pneumococcal Vaccine: Pediatrics (0 to 5 Years) and At-Risk Patients (6 to 64 Years) (1 of 2 - PCV) [facility] Start: 1973 MMR Vaccines (1 of 1 - Standard series) MMR Vaccines (1 of 1 - Standard series) [facility] Start: 1972 HIV screening HIV Screening [facility] Start: 1972 Lipid panel Lipid Panel [facility] Start: 1972 Screening for malign ant neoplasm of colon [facility] Start: 1972 Yearly Adult Physical Yearly Adult P hysical [facility] Patient referral [facility] Work Phone: THIN PREP TIS PAP AN D HR HPV DNA THIN PREP TIS PAP AND HR HPV DNA Pathology and Cytology Routine Well woman exam with routine gynecological exam Ordered: 03/04/2024 [facility] Comment on above: Ordered: 03/04/2024 Payers Date Payer Category Payer Private Health Insurance [facility] MEDICAID [id number] 2021 Unknown 2021 Unknown [id number] 1972 Unknown [id number] 2.16.840.1.760190.3.579.2. 593 1972 Unknown [id number] 2.16.840.1.428530.3.579.2. 593 1972 Unknown [id number] 2.16.840.1.082719.3.579.2. 593 1972 Unknown [id number] 2.16.840.1.719319.3.579.2. 593 1972 Unknown [id number] 2.16.840.1.332717.3.579.2. 593 1972 Unknown [id number] 2.16.840.1.696651.3.579.2. 593 1972 Unknown [id number] 2.16.840.1.642058.3.579.2. 593 1972 Unknown [id number] 2.16.840.1.084378.3.579.2. 593 1972 Unknown [id number] 2.16.840.1.974633.3.579.2. 593 1972 Unknown [id number] 2.16.840.1.959336.3.579.2. 593 1972 Unknown [id number] 2.16.840.1.106723.3.579.2. 593 1972 Unknown [id number] 2.16.840.1.509397.3.579.2. 593 1972 Unknown [id number] 2.16.840.1.002198.3.579.2. 593 1972 Unknown [id number] 2.16.840.1.667047.3.579.2. 593 1972 Unknown [id number] 2.16.840.1.285759.3.579.2. 356 1972 Unknown [id number] 2.16.840.1.090377.3.579.2. 356 1972 Unknown [id number] 2.16.840.1.594814.3.579.2. 1244 1972 Unknown [id number] 2.16.840.1.299085.3.579.2. 727 1972 Unknown [id number] 2.16.840.1.443020.3.579.2. 727 1972 Unknown [id number] 2.16.840.1.847101.3.579.2. 727 1972 Unknown [id number] 2.16.840.1.690177.3.579.2. 727 1972 Unknown [id number] 2.16.840.1.882639.3.579.2. 727 1972 Unknown [id number] 2.16.840.1.627308.3.579.2. 9 1972 Unknown [id number] 2.16.840.1.775009.3.579.2. 1259 1972 Unknown [id number] 2.16.840.1.494796.3.579.2. 9 1972 Unknown [id number] 2.16.840.1.340414.3.579.2. 1259 1972 Unknown [id number] 2.16.840.1.536737.3.579.2. 9 1972 Unknown [id number] 2.16.840.1.983720.3.579.2. 1259 1959 Unknown [id number] Social History Date Type Detail Facility Unknown if ever smoked [employer] Other Start: 08-08-2023 Sex Assigned At F [facility] Start: 08-08-2023 Caffeine use Caffeine use [facility] 250 DO Work Phone: Comment on above: pop all day; 5-10 cigarettes jessi y; Start: 1970 Sex Assigned At Female F [facility] Start: 10-03-2023 End: 01-30-2024 Tobacco smoking status Heavy tobacco smoker (finding) [facility] [place] Start: 11-03-2023 Tobacco smoking stat us NHIS Smokes tobacco daily [facility] Work Phone: History of tobacco use Cigarette Smoker [facility] Work Phone: Start: 11-03-2023 Tobacco use and exposure User of smokeless tobacco [facility] Work Phone: Start: 11-03-2023 Alcoholic beverage intake Lifetime non-drinker (finding) [facility] Work Phone: Start: 11-03-2023 Tobacco Comment vape [facility] Work Phone: Start: 1970 Sex assigned at Not on file [facility] Work Phone: Start: 10-24-2023 End: 11-03-2023 Exposure to SARS-CoV-2 (event) Not sure [facility] Start: 02-14-2024 Tobacco smoking status Light t obacco smoker (finding) [facility] Start: 05-25-2023 [facility] Functional Status Date Assessment Result Facility 02-14-2024 Functional Status N/A [facility] 10-03-2023 Functional Status N/A [facility] Clinical Notes 09-30-2021 to 03-04-2024 Peace Roblero [...] on 03/29/[address] Navarrete at [facility]. MEDICATIONS Current Outpatient Medications Medication Instructions famotidine [...] nursing note reviewed. Exam conducted with a nutritional chemist present. Vitals: Estimated body mass index is [...] reviewed, and patient is to proceed to [facility] OR. Follow Up: Patient is to follow up between 1-2 weeks post operative to assess proper healing and recovery from procedure. Documented by She Reyes LPN on behalf of: Nando Navarrete DO documented in this encounter [facility] 01-30-2024 Hospital Discharge instructions Patient [...] hormones. Follow these instructions at home: Take qwqs-mjd-bdpyvdm and prescription medicines only as told by [...] produce hormones and may cause symptoms of Downs's syndrome or primary aldosteronism, depending on the [...] provider. Document Revised: 01/05/2021 Document Reviewed: 01/05/2021 [employer] Patient Education 2023 [employer]. 01/30/2024 10:50:38 Steps to Quit Smoking Steps [...] require a prescription. You can also purchase jniu-toz-rpaxeat medicines. Medicines may have nicotine in them [...] and encouragement. Call telephone quitlines, such as 8-369-MMIT-NOW, reach out to support groups, or work [...] provider. Document Revised: 04/29/2022 Document Reviewed: 04/29/2022 [employer] Patient Education 2023 [employer]. 01/30/2024 10:50:36 Overactive Bladder, Adult Overactive Bladder, [...] your health care provider. General instructions Take koez-hth-ivijtti and prescription medicines only as told by [...] provider. Document Revised: 01/25/2021 Document Reviewed: 01/25/2021 [employer] Patient Education 2023 [employer]. 01/30/2024 10:50:34 Hematuria, Adult Hematuria, Adult Hematuria [...] Follow these instructions at home: Medicines Take cmvt-bcu-mclktbt and prescription medicines only as told by [...] or the blood stops without treatment. Take ngpp-uyu-funiuaq and prescription medicines only as told by your health care provider. Drink enough fluid to keep your urine pale yellow. This information is not intended to replace advice given to you by your health care provider. Make sure you discuss any questions you have with your health care provider. Document Revised: 01/06/2021 Document Reviewed: 01/06/2021 [employer] Patient Education 2023 [employer]. 01/30/2024 10:50:34 Dietary Guidelines to Help Prevent [...] include: ?8 oz (237 mL) of milk, crewmwa-yfkzbamhptig-enfpl milk, and calcium-fortifiedfruit juice. Calcium-fortified means that [...] ?Spinach (cooked), rhubarb, beets, sweet potatoes, and Guyanese chard. ?Peanuts. ?Potato chips, guinean fries, and baked potatoes with skin on. ?Nuts and nut products. ?Chocolate. If you regularly take a diuretic medicine, make sure to eat at least 1 or 2 servings of fruits or vegetables that are high in potassium each day. These include: ?Avocado. ?Banana. ?Phoenix, prune, carrot, or tomato juice. ?Baked potato. [...] magnesium, fish oil, or vitamin B6. Take cwov-hcr-ckksgyy and prescription medicines only as told by [...] Casseroles. Pizza. Lasagna. Frozen meals. Potato chips. Bermudian fries. The items listed above may not [...] provider. Document Revised: 08/18/2022 Document Reviewed: 08/18/2022 [employer] Patient Education 2023 [employer]. Follow Up Care 01/08/2024 16:41:10 With:JOHNNA Joya APRN, GYPSY Rodriguez, URL Address: When: Unknown Comments:3-4 mos [facility] 01-30-2024 Note Patient Education Nephrology Dietary Guidelines [...] ? 8 oz (237 mL) of milk, osaarzo-jqrhvdscnkji-xbzek milk, and calcium-fortifiedfruit juice. Calcium-fortified means that [...] Spinach (cooked), rhubarb, beets, sweet potatoes, and Guyanese chard. ? Peanuts. ? Potato chips, guinean fries, and baked potatoes with skin on. ? Nuts and nut products. ? Chocolate. ? If you regularly take a diuretic medicine, make sure to eat at least 1 or 2 servings of fruits or vegetables that are high in potassium each day. These include: ? Avocado. ? Banana. ? Phoenix, prune, carrot, or tomato juice. ? Baked [...] fish oil, or vitamin B6. ? Take ggab-bmz-xucgsfd and prescription medicines only as told by your health care provider. These include suppleme (more content not included)... [facility] 11-07-2023 Evaluation + Plan note Extrac galileo from: Title:[facility] HOP Note Author:Gemma Blanco MD Date:6/18/24 Impression and Plan Assessment and Plan: Diagnosis: Adrenal adenoma (DYH76-HT D35.00, Working, Medical), Gross hematuria (AAG29-PH R31.0, Discharge, Medical), OAB (overactive bladder) (NUY02-AJ N32.81, Discharge, Medical), TEAGAN (stress urinary incontinence, female) (ITG13-JB N39.3, Working, Medical). 53 year old female [...] AM Scheduled Provider:JOHNNA Joya APRN, [place] [facility] Location:[facility] Appointment Type:URO Office Visit Diagnostic Tests Pending * Urine Cytology ([facility]) 11/07/23 [facility]06-18-2024 Hospital Discharge instructions Patient Education 11/07/2023 10:39:12 [...] with PVR With:Gemma Blanco Address:Unknown When: Unknown [facility]06-18-2024 Note [id number] [facility] 11-07-2023 NoteCystoscopy ? Voiding after the procedure: [...] if you have a fever over 100 degrees.[facility] 11-03-2023 Instructions* Patient Instructions* Sharda [...] time of your visit. [facility] Phone: 1(233) 924-142005-17-2024 NoteChief Complaint referral HPI Staff Referral for dysuria, left flank pain and hematuria by Dr. Talbot. Pt was seen in [facility] ED 08/11/23 for urinary frequency and [...] with voice recognition artificial intelligence software, specifically [address], [employer] and or [employer]. Substitutions may have occurred due to the [...] work, dexamethasone testing. 3. Dysuria (R30.0: Dysuria) [facility] ER 08/11/2023-urinary frequency, low back pain [...] fluid intake so jah (more content not included)...[facility]:Result Comment: Electronically Signed By: JOHNNA Joya APRN, Zulema Lema\.br\Date and Time Signed: 10/06/23 12:54 [id number] Evaluation + Plan note Diagnostic Tests Pending * Cortisol 10/03/23 * Lab Miscellaneous-LC 10/03/23 * Lab Miscellaneous-LC 10/03/23 [facility] 01-10-2024 Evaluation note* Encounter Date Diagnosis Assessment Notes Treatment Notes Treatment Clinical Notes May, Pain, joint, knee, left (ICD-10 - M25.562) Pt declines PT at this time. Will attempt MRI. She declines Ortho referral at this time as well. MRI order sent to [facility]. work note given for restrictions as she is unable to climb a lot of stairs due to pain. May, Uncontrolled hypertension (ICD-10 - I10) Reviewed labs w pt. No hypokalemia or other electrolyte abnormalities noted in Apr. 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 Mar, Leg pain, left (ICD-10 - M79.605) Discussed concern for DVT. US scheduled for today. [employer] Other 11-07-2023 Evaluation note* Encounter Date Diagnosis [...] verbalized understanding and agreement with treatment plan. [employer] Other 10-03-2023 Evaluation note* Encounter Date Diagnosis [...] Advised she limit NSAIDs and added omeprazole [employer] Other 03-30-2023 Evaluation note* Encounter Date Diagnosis Assessment Notes Treatment Notes Treatment Clinical Notes Jul, Uncontrolled hypertension (ICD-10 - I10) [employer] Other 03-17-2023 Evaluation note* Encounter Date Diagnosis Assessment Notes Treatment Notes Treatment Clinical Notes Jul, Dysuria (ICD-10 - R30.0) [employer] Other [id number] NotePROCEDURE: XR ANKLE LT MIN 3 V, [...] Electronically authenticated by: VLADIMIR PALACIOS Date: 2022-05-06 07:13[facility] [facility] NotePROCEDURE: XR ANKLE LT MIN 3 V, [...] Electronically authenticated by: VLADIMIR PALACIOS Date: 2022-05-06 07:13[facility]05-12-2022 NotePROCEDURE: XR ELBOW LT MIN 3 VIEWS HISTORY: Pain of left elbow joint , acute; limited range of motion COMPARISON: None. FINDINGS: BONES:No fracture, acute abnormality, or significant arthropathy. SOFT TISSUES:No visible soft tissue swelling. EFFUSION:None visible. OTHER: Negative. IMPRESSION: 1. Normal examination. Electronically authenticated by: VLADIMIR PALACIOS Date: 2021-09-30 16:50[facility] complaint Narrative - ReportedRAELENElizabeth MELÉNDEZ is being seen for a consultation for blood pressure issues.[facility] [address] DO Work Phone: Evaluation + Plan note Future Appointments Appointment Date:01/30/2024 09:30:00 AM Scheduled Provider:JOHNNA Joya APRN, Zulema Lema Location:[facility] Appointment Type:URO Office Visit [facility] Evaluation + Plan note Future Appointments Appointment Date:02/14/2024 03:40:00 PM Scheduled Provider:Mikhail VENEGAS MD Location:[facility] Appointment Type:[place] [id number] [facility] [email or web address] noteNo InformationNortJefferson [facility] [employer] Other Evaluation noteNo assessment information available [facility] Work Phone: Evaluation note* Diagnosis Onset Date Resolution Status Dysuria acute Hematuria acute Left flank pain acute [facility] Work Phone: Evaluation note* Diagnosis Palpitations- Primary Essential hypertension Unspecified essential hypertension Shortness of breath BMI 40.0-44.9, adult (Multi) Current smoker documented in this encounter [facility] Work Phone: Evaluation note* Diagnosis Onset Date Resolution Status Rectal bleeding acute [facility] Work Phone: Evaluation note* Diagnosis Postmenopausal state [...] OF ADHESIONS 09/2015 Hospitalization History SEE SURGICAL [facility] [employer] Other History of Present illness Narrative* Patient [...] to retrieve her recent Holter monitor from [place] * 3. I suggested a trial of [...] diet * 6. Follow-up in 4 months [facility] extraTKT DO Work Phone: History of Present illness [...] * 5. Follow-up in [address] [facility] 250 DO Work Phone: Hospital course Narrative No data available for this section [facility] Discharge instructionsAmbulatory Orders* Referral to Urology Time Frame: 08/09/23, Location: None [facility] Work Phone: Hospital Discharge instructions No data available for this section [facility] Discharge instructionsAmbulatory Orders* Referral to General Surgery Time Frame: 01/18/24, Location: None [facility] Work Phone: Progress note No data available for this section [facility] reason for referral (narrative)* Consultation (Routine) - Authorized Specialty Diagnoses / Procedures Referred By Niko t Referred To Contact Cardiology Diagnoses Essential hypertension Procedures Follow Up In Cardiology Bonny Meyer MD [address] [facility] [address] [place] [address] Bonny Meyer MD [address] [place] [address] Referral ID Status Reason Start Date Expiration Date V isits Requested Visits Authorized [id number] Authorized 11/03/2023 11/02/2024 1 1 [facility] Work Phone: Summary Purpose Family History Unknown [...] ure of right hand (M72.0) Referral Organization [facility] Cale vargas Referring Provider First Name Carrie Referring Provider Last Name Ronaldo Referring Provider Specialty Family [facility] Referred Organization [facility] Referred Provider Deisi Branch Referred Address [address] [place], [place],[address] Referred Provider Specialty Orthopedic S urgery Referral [...] DATE CREATED AUTHOR AUTHOR'S ORGANIZ ATION 12/03/2022 [facility] DATE CREATED AUTHOR AUTHOR'S ORGANIZ ATION 12/03/2022 [facility] DATE CREATED AUTHOR AUTHOR'S ORGANIZ ATION 08/12/2023 [facility] DATE CREATED AUTHOR AUTHOR'S ORGANIZ ATION 11/04/2023 [facility] DATE CREATED AUTHOR AUTHOR'S ORGANIZ ATION 01/31/2024 [facility] DATE CREATED AUTHOR AUTHOR'S ORGANIZ ATION 02/13/2024 [facility] DATE CREATED AUTHOR AUTHOR'S ORGANIZ ATION 03/05/2024 [facility] dical Specialists EPIC REASON FOR VISIT (unrecogniz [...] August 09, 2023 End: August 09, 2023 Gate Clerk Relationship Specialty Start Date End Date Carrie Talbot MD [address] [place] [address] [place] [address] PCP - General 08/11/22 Team Status: Inactive Member Role Status Dates Carrie Talbot MD Primary Care Provide r, Attending Provider Active Start: January 18, 2024 End: January 18, 2024 Gate Clerk Relationship Specialty Start Date End Date Carrie Talbot MD [address] [place] [address] PCP - General Family Medicine 05/25/23 Gate Clerk Relationship Specialty Start Date End Date Carrie Talbot MD [address] [place] [address] PCP - General Family Medicine 05/25/23 Gate Clerk Relationship Specialty Start Date End Date Carrie Talbot MD [address] [place] [id number] PCP - General Family Medicine 05/25/23 Goals [...] BE BASED ON THE PRIMARY CLINICAL RECORDS. [facility]. provides no warranty or guarantee of the accuracy or completeness of information in this document.
[2024-03-15 09:28] LABS: Basophils Absolute Auto 0.1 10^3/uL (0.0-0.1); Basophils Percent Auto 0.7 % (0.2-2.0); Eosinophils Absolute Auto 0.1 10^3/uL (0.0-0.7); Eosinophils Percent Auto 1.9 % (0.9-7.0); Hematocrit 42.1 % (36.0-48.0); Hemoglobin 14.1 g/dL (12.0-16.0); Immature Granulocytes Abs Auto 0.02 10^3/uL (0.00-0.03); Immature Granulocytes Pct Auto 0.3 % (0.0-0.5); Lymphocytes Absolute Auto 2.4 10^3/uL (1.2-3.8); Lymphocytes Percent Auto 31.7 % (20.5-60.0); Mean Corpuscular HGB Conc 33.5 g/dL (29.9-35.2); Mean Corpuscular Hemoglobin 30.3 pg (26.7-34.0); Mean Corpuscular Volume 90.3 fL (81.0-99.0); Mean Platelet Volume 9.5 fL (9.5-13.5); Monocytes Absolute Auto 0.5 10^3/uL (0.3-0.8); Monocytes Percent Auto 6.4 % (1.7-12.0); Neutrophils Absolute Auto 4.5 10^3/uL (1.4-6.5); Platelet Count 261 10^3/uL (150-450); Red Blood Count 4.66 10^6/uL (4.20-5.40); White Blood Count 7.5 10^3/uL (4.0-11.0)
[2024-03-15] MEDS: LACTATED RINGER'S SOLUTION 1,000 ML 50 ML IV (09:55)
--- NOTE | 2024-03-15 10:27 | PC.NURSE ---
Jase KEITH made aware of elevated BP at this time.
[2024-03-15] MEDS: FAMOTIDINE/PF 20 MG/2 ML VIAL IV (11:00)
--- NOTE | 2024-03-15 12:44 | PM.ONB ---
Brief Operative Note Date of procedure: 03/15/24 Pre-op diagnosis general: cervical polyp, aub Post-op diagnosis: same as pre-op Procedure: NAME OF PROCEDURE: [d&c hysteroscopy with cervical polypectomy] PROCEDURE: The patient was taken back to the Operating Room where she was prepped and draped in normal sterile fashion after being placed under general anesthesia without difficulty. She was also placed in the dorsal lithotomy position. A weighted speculum was placed in the patient?s vagina. The anterior lip of the cervix was identified and grasped with a single tooth tenaculum. The patient?s uterus was then sounded roughly to [8? ] cm. The patient was then gently dilated using Hegar dilators. The hysteroscope was passed through the patient?s cervix into the uterus. Both ostia were identified. Normal appearing endometrium. No gross evidence of polyps, fibroids or malignancy. The hysteroscope was then removed from the patient's uterus.? At that point, gentle curettage was performed until a gritty texture was noted. The endometrial curettings were sent out to pathology.? ring forcep was used to grasp the cervical polyp which was removed gently. The single tooth tenaculum was then removed from the patient's anterior lip of the cervix where excellent hemostasis was noted. Anesthesia: STEVE Surgeon: Nando Navarrete Estimated blood loss (mL): 5 Pathology: other (endometrial currettings, cervical polyp) Condition: stable Disposition: PACU Urinary Catheter Management Urinary Catheter Management Urethral: Cath placed during this visit: no
== END 2024-03-15 13:58 | disposition home or self-care (01) ==
PROVIDERS: PCP Family Medicine; Visit Provider Obstetrics & Gynecology
PROC: (CPT 952; principal; 2024-03-15 10:35)
DX: N84.0 Polyp of corpus uteri (principal); R10.2 Pelvic and perineal pain; Z78.0 Asymptomatic menopausal state; Z90.49 Acquired absence of other specified parts of digestive tract; G47.33 Obstructive sleep apnea (adult) (pediatric); F17.290 Nicotine dependence, other tobacco product, uncomplicated; I25.10 Atherosclerotic heart disease of native coronary artery without angina pectoris; M79.7 Fibromyalgia; K21.9 Gastro-esophageal reflux disease without esophagitis; G90.1 Familial dysautonomia [Riley-Day]
CPT/HCPCS: 58558; 36415; 85025; 88305; J1100; J1885; J2250; J2405; J2704; J3010

== ENCOUNTER 2024-03-20 07:34 | Day surgery (SDC) | payer OTHER, SELFPAY ==
--- NOTE | 2024-03-20 | OP_ITS ---
OPERATION DATE: 03/20/2024 PREOPERATIVE DIAGNOSIS: Intermittent rectal bleeding. POSTOPERATIVE DIAGNOSIS: Prominent rectal veins and sigmoid diverticulosis. PROCEDURE: Colonoscopy to cecum. SURGEON: Mikhail Del Angel M.D. ANESTHESIA: Monitored anesthesia care. ESTIMATED BLOOD LOSS: Zero. INDICATIONS AND CONSENT: Patient is a 53-year-old female with history of intermittent rectal bleeding. Indications, risks, benefits, alternatives of proceeding with colonoscopy were explained extensively to the patient, including the risks of bleeding, colon perforation or anesthetic complications. All of her questions were answered. Informed consent was obtained. PROCEDURE: Patient brought to the operating room, placed in the left lateral decubitus position. Monitored anesthesia care was provided. Rectal exam was performed which showed no masses or blood. The scope was inserted into the anal canal. Under direct visualization was advanced. With the aid of abdominal compression, it was advanced to the cecum where cecal markings were clearly identified. There was noted to be a good prep. Upon withdrawal of the scope, mucosal surfaces were carefully examined. There were no mass lesions or polyps. No inflammatory changes or ulcerations. There was noted to be a moderate amount of sigmoid diverticulosis without inflammatory changes or scarring. The scope was retroflexed in the anal canal. There were prominent rectal veins. No significant hemorrhoidal disease. Scope was then withdrawn. Patient tolerated procedure well, was sent to recovery room in good condition. Follow up colonoscopy for screening should be in 10 years. CC: Slime Higgins M.D. MTDD
--- OUTSIDE RECORDS SUMMARY | 2024-03-20 07:37 | XMS_ITS | CCD ---
Author Organization [facility] Care Team Providers Care Senior Environmental Consultant Name Role Phone SHAUNA, DR JUAN CARLOS [...] Unavaila MD CARRIE Jules Primary Care Unava ilable MD CARRIE TALBOT Primary Care Unava ilable Mitch, Dr. Bethea Referring Unavaila ble Mitch, Dr. Bethea Attending Unavaila MD Carrie Jules Attending Provider CARRIE TALBOT Primary Care Physician Carrie Talbot MD Primary Care Provider BONNY MEYER Attending Unavailable CARRIE TALBOT Primary Care Unavailable Zulema Joya Attending Unavailable OrZulema kang X Attending Unavailable CARRIE TALBOT Referring Unavailable Gemma Blanco Attending Unavailable Gemma Blanco Referring Unavailable Gemma Blanco Admitting Unavailable Orpearl Zulema X Attending Unavailable Mikhail VENEGAS Attending Unavailable CARRIE TALBOT Referring Unavailable HEMZOLTAN FUENTES Attending Unavailable ZOLTAN HENDERSON Referring Unavailable NIECY NAVARRETEY Attending Unavailable NIECY NAVARRETEY Attending Unavailable NIECY NAVARRETEY Attending Unavailable NIECY NAVARRETEY Attending Unavailable Carrie Talbot MD Primary Care Provider Nando Navarrete Attending Unavailable Niecy Navarretey Admitting Unavailable Carrie Talbot Attending Unavailable Carrie Talbot Admitting Unavailable Allergies Allergy Classification Reported Allergen(s) Allergy Type Date of Onset Reaction(s) Facility Cephalosporins (antibiotic) (1 source) cefdinir Drug Allergy 08-08-19 24 Unknown [facility] Opioid Agonists (1 source) Codeine Drug Allergy 05-25-19 Hives, Unknown [facility] Work Phone: Quinolones (antibiotic) (1 source) Ciprofloxacin Drug Allergy 11-03-19 Other [facility] (11 sources) Cefuroxime Drug Allergy 05-25-19 Unknown [facility] (20 sources) Codeine; Translations: [CODEINE] Drug Allergy 05-25-19 Weal (disorder), Unknown, [facility] (11 sources) Pseudoephedrine Drug Allergy 05-25-19 Unknown [facility] Other (2 sources) cefdinir; Translations: [cefdinir] Drug Allergy 08-08-19 Other [facility] 3 Repository (6 sources) Ceftin *CEPHALOSPORINS* Propensity to adverse reactions 02-12-20 13 Unknown [facility] Other (6 sources) Pseudoephedrine HCl *NASAL AGENTS - SYSTEMIC AND T Propensity to adverse reactions 02-12-20 13 Unknown [facility] Other (4 sources) Cephalosporins (Antibiotic) Allergy to substance 05-31-19 [facility] (4 sources) Pseudoephedrine HCl *NASAL AGE Allergy to substance 05-31-19 [facility] (7 sources) Acetaminophen / Dextromethorphan / Doxylamine / Pseudoephedrine; Translations: [APAP/dextromethorp dwyer/doxylamine/PSE] Drug Allergy Unknown (qualifier value) [facility] (14 sources) Ciprofloxacin; Translations: [ciprofloxacin] Drug Allergy 11-03-19 Unknown (qualifier value), Weal (disorder), Unknown [facility] (2 sources) Acetaminophen; Translations: [acetaminophen] Drug Allergy [facility] Repository (6 sources) cefdinir Drug Allergy 08-08-19 Unknown [facility] Medications Current Medications Medication Drug [...] Status: Ordered famotidine 20 mg oral tablet (12 sources) Histamine-2 Receptor Antagonist Start: 10-03-2023 take [...] Daily, # 30 tab(s), Refills(s) 11, Pharmacy: [facility] 1155, 163, cm, 10/03/23 10:16:00 EDT, Height/Length [...] oral tablet (20 sources) Aldosterone Antagonist Start: End: 025 take [...] days Active valsartan 40 mg oral tablet (10 sources) Angiotensin 2 Receptor Josefina Start: 024 [...] Coronary arteriosclerosis; Translations: [Atherosclerotic heart disease of [place] coronary artery without angina pectoris] 09-28-2023 Chronic [...] Other long-term (current) drug therapy; Translations: [OTH [facility] CURRENT DRUG THERAPY] Onset: 3 Episodic Other [...] cervix 01-30-2024 Episodic Other female genital disorders (6 sources) Lump of cervix; Translations: [Other specified [...] (adult) (pediatric)] 09-28-2023 Chronic Residual codes; unclassified (8 sources) Postmenopausal state; Translations: [Asymptomatic menopausal state] [...] Name Value Interpretation Reference Range Facility ALL CBC WITH AUTO DIFFon BASOPHILS ABSOLUTE AUTO 0.1 [facility] Basophils/100 WBC (Bld) 0.7 % 0.2 - 2.0 % [facility] Eosinophils/100 WBC (Bld) 1.9 % 0.9 - 7.0 % [facility] Erythrocyte distribution width (RBC) [Ratio] 13 % 11.0 - 15.0 % [facility] Hematocrit (Bld) [Volume fraction] 42.1 % 36.0 - 48.0 % [facility] Hemoglobin (Bld) [Mass/Vol] 14.1 g/dL 12.0 - 16.0 g/dL [facility] IMMATURE GRANULOCYTES ABS AUTO 0.02 [facility] Immature granulocytes/100 WBC (Bld) 0.3 % 0.0 - 0.5 % [facility] LYMPHOCYTES ABSOLUTE AUTO 2.4 [facility] Lymphocytes/100 WBC (Bld) 31.7 % 20.5 - 60.0 % [facility] MCH (RBC) [Entitic mass] 30.3 pg 26.7 - 34.0 pg [facility] MCHC (RBC) [Mass/Vol] 33.5 g/dL 29.9 - 35.2 g/dL [facility] MCV (RBC) [Entitic vol] 90.3 fL 81.0 - 99.0 fL [facility] MONOCYTES ABSOLUTE AUTO 0.5 [facility] Monocytes/100 WBC (Bld) 6.4 % 1.7 - 12.0 % [facility] NEUTROPHILS ABSOLUTE AUTO 4.5 [facility] Neutrophils/100 WBC (Bld) 59 % 43.0 - 75.0 % [facility] Platelet mean volume (Bld) [Entitic vol] 9.5 fL 9.5 - 13.5 fL [facility] EO # 0.1 [facility] PLT 261 [facility] RBC 4.66 [facility] WBC 7.5 [facility] ALL BASIC METABOLIC PANELon 03-08-2024 Anion gap [Moles/Vol] 15.2 mmol/L [facility] Calcium [Mass/Vol] 9.3 mg/dL 8.5 - 10. 1 mg/dL [facility] Chloride [Moles/Vol] 106 mmol/L 98 - 107 mmol/L [facility] CO2 [Moles/Vol] 24 mmol/L 21.0 - 32.0 mmol/L [facility] Creatinine [Mass/Vol] 0.85 mg/dL 0.55 - 1.02 mg/dL [facility] GFR/1.73 sq M.predicted CKD-EPI (S/P/Bld) [Vol rate/Area] >60 >=60 mL/min/1.73m 2 [facility] Glucose [Mass/Vol] 84 mg/dL 74 - 106 mg/dL [facility] Potassium [Moles/Vol] 4.2 mmol/L 3.5 - 5.1 mmol/L [facility] Sodium [Moles/Vol] 141 mmol/L 136 - 145 mmol/L [facility] EGFR-NON AF ENGLISH >60 >=60 mL/min/1.73m 2 [facility] Urea nitrogen [Mass/Vol] 12 mg/dL 7.0 - 18.0 mg/dL [facility] Urea nitrogen/Creatinine [Mass ratio] 14.1 mg/mg [facility] IGP,APTIMA HPV,AGE GDLNon AGE GDLN ACOG TESTING Note . [facility] Comment on above: TESTS RESULT FLAG U NITS REF RANGE LAB Clinician Provided Cytology Information Source.............Cervix;Endocervix No. of containers..01 ThinPrep Vial Age Algo ACOG Annmarie... 30-65 FLAG LEGEND: L-Low Normal,H-High Normal,LL-Alert Low,HH-Alert High <-Panic Low,>-Panic High,A-Abnormal,AA-Critical Abnormal Performed at: 01 =[address] [phone] Chula Duran MD, HPV APTIMA Negative Negative [facility] Comment on above: This nucleic acid am plification test detects fourteen high- risk HPV types (16,18,31,33,35,39,45,51,52,56,58,59,66,68) without differentiation. Performed at: =[address] [id number] Transition Program Manager: Chula Duran MD, Phone: [phone] Performed at: [address] [id number] Transition Program Manager: Chula Duran MD, Phone: [phone] IGP, APTIMA HPV, RFX 16/18,45 Note . [facility] Comment on above: TESTS RESULT FLAG UN ITS REF RANGE LAB DIAGNOSIS: 02 NEGATIVE FOR INTRAEPITHELIAL LESION OR MALIGNANCY. Specimen adequacy: 02 Satisfactory for evaluation. Endocervical and/or squamous metaplastic cells (endocervical component) are present. Performed by: 02 Ivan Sierra, Chronometer Assembler (ASCP) . 02 Note: Note 02 The Pap [...] <-Panic Low,>-Panic High,A-Abnormal,AA-Critical Abnormal Performed at: [address] [facility] [address] [address] Chula Duran MD, BRUSH-SPATULA CERVIX ENDOCERVIX [facility] Summaryon 0 01-30-2024 [...] EDT With: RUBI HERNANDEZ, Mikhail Stevens Where: [facility] Surgery [address], [address], [place] [address]- Medications What How Much When Why Instructions [...] for choosing us for your care. Normal [facility] Reminderson 01-30-2024 Reminders Reminders From: Yvette Hilliard To: EU - Administrative; Sent: 01/30/2024 10:26:31 EDT Show up: 03/22/2024 10:26:00 EDT Subject: Ambulatory Reminder Due Date/Time: 05/31/2024 10:26:00 EST Reminder/Recall Patient needs scheduled with AO for a 4M f/u, due back in May of 2024 Normal [facility] Urology Office/Clinic Noteon 01-30-2024 Urology Office/Clinic [...] with voice recognition artificial intelligence software, specifically [employer], [employer] and or [employer]. Substitutions may have occurred due to the [...] any recent stone passing. [1] CTU at [facility] 11/01/2023 without abnormality explain patient's hematuria [...] unspecified, uncomplicated) Increased risk of CA Orders: 23979 Measure Post Void residual urine and/or bladder capacity by US- non-imaging Urnls Dip Stick Auto w/o Microscopy POC 62670 Follow-up With When Contact Information [employer] ARCHITECT, TAFE LECTURER-C, Zulema X, FAM, URL Additional Instructions: 3-4 [...] tab(s), Oral, (more content not included)... Normal [facility] Comment on above: Result Comment: Elec tronically Signed By: JOHNNA Joya APRN, Zulema Lema\.br\Date and Time Signed: 01/30/24 10:50 EDT Urine Cytology ([facility])on 0 11-12-2023 Microscopic exam Cytology (U) [Interp] Diagnosis Info Invalid Interpretation Code [facility] Comment on above: Result Comment: A:Ur ine,Cystoscopy:Cystoscopy Interpretation - MicroScopic Description - Adequacy - Gross Description Site ID:A color Light Yellow fixative Alcohol Specimen designated Cystoscopy received in alcohol preservative and labeled with the patient?s name, consists of 100ml clear light yellow fluid. Electronically signed by : on: 11/12/2023 10:13:54 Performed By: #### 1 [id number] #### [facility] [address] [place] [id number] Coding Summary.on 11-09-2023 Coding Summary. MZXKEqzi23RVz7nSh+PG hl YWQ+MM2DABGqG83fwFFerK 4oB2RNATgXFjfqIBHHNIwG MvQfopXoWT1uvGLuRHGb IC8+CU9cAOYuRacomYXxr5 J7oUU9I70swa7vTKmwgES0 NWGoGpAaelhxp8sqzYo9QE cuNmluOyBt AIFgrO89BXB1vC41Ac45uG BxmDLve1kfzSj9ZuMoNMAt WBN1uQthCBkxh6CyAYLrU9 5glTGqs0E0 HXFwdExlyDXcKbBjjLI4jD 5lWIqypndzs9hpbonmDdy1 fb77mMEms7W7rTB1C2Srwn U0ZCNuaPCk FknelESQpT7jagpwt9aggv daRfOjMWTzNHm8OXm4VNTj iOjyXsSdYO57EOE7RDFsik NoE9QsGQSc oJlbGbG4r8V9Kp5GD0RPKw enJ3OKLHBMZYftpVW+PC90 xd71S9YwWyxmWgy9RSFeYU G4hBD5mX4z QGXfEQfeb4N7bUX1H1Iyqr Ywhn9yw9swFUQoKQoqC47i vLBfo3V7UAAsoFS2XLSebV mwWvAwpD30 Oyc+HJAbtWdrg8AbVnaxp3 tfx9dfqNc1FdgpFPOtpmYr cJkvPTX6f4AeWc0cGDGvcN A0qXK1yK1g EoMcXpJ6APzbQ724MjZquA FwJqzvC80nV3ZwiFN+PHRy Lmm9LXThgKclYW8oO1YdMT RpbmctbGVm yOdvVH4dDVOvilnyEZCgcN 0yYSKaN0d0WtCpSrW4VJgm X0XxMSNlgyjdKn33xA5jPz TuZfU3FLem B3AcxkA0MEMheMQiLLbjXI A7I40fs8N6ILWbLTIxXCQ2 kBY9dG3ulArrorzwxJIteP sgdmVydGlj IXkoDFscM790FBGboTlrBl NvZGluZyBEYXRlOiAgMDYv MjAvMjAyNDwvdGQ+PHRkIH D6fFkvNZBq fUPwSTruEn3vrIrqfLocIQ 1vWMYufvriWCSpqN0xNQTz gCHgxVzxTY0kSQEnzdhgc0 87HrMnLOE5 SGAxbYHcY7NxoH0vAdZdYL EqZNSnG6KltNMwKPtjX881 SAyqRsB9PZMcpxNlA3UdDF FsaWduOiB0 o2I8Vb0Ke7FvolbuE8IjtT XwWnZhUxoySLh3B1NkRaoq dHI+AB76EIMvOX61XEm4RM D1mSmyNLsx PNYkR9UvkZ5xQeKbXJXcUJ RkOyc+PHRhYmxlIHdpZHRo LTumVOIkRfGevGlbHG8oUx 9yZGVyLWNv jAlgvLTnFmBlv9kjZLSxHR aoNK8tySnsZ2WglNW6ZMKi l6r5Vr97S61iT7JtmGM+PG SizGV6lGV2 zJ9cSoSbEbT2VZtfT085Yi KucYLjDigei1vkl6rfhFe4 KsP3AHNdziDqeGaqRYN3d6 KiKs06C74r IHdpZHRoPSIxNSUiIHZhbG gwvg4uhK3tDf6+PGNvbCB3 nGL3bJ9zSeLvFsA7AEwmR8 49InRvcCIv Qrjte1pxt5yasPr5YnPqEE BjipDcsBmaKQY0d5MzSg91 R2HucKhna2YuXgk2ik92vO Uec3K5vMV2 J6FsKFZlxsdoaGUhdDoaIC 2vVDCvkqrqDHWclH8rWKFv L7r4IfYtHvF0RCvuI7Rcmb N4UGCxhPNr HVDoeWSEyX8dycswe0xuxi faNzFvUHSrAYd9PAt0WTRb nGgmXzWkPUV3WcG8BGT9uU UwlH8giWbm aamsuY8bOif+OZL2jMGqhE GZJC5iOgxroMC+PHRkIHN0 cHkkTZglMHZikJ2iPTToF1 v8SkKiShB7 OHnjY3NwatF1KHFjbSLdHC ZjmDQDfZ0irmmeo2tgbqmb PeUmKWQjSGz7AVa1LVZbhS duOiBsZWZ0 GhP0PRA7mUOvzW3dvQbphv uuqF1oJyp+QmlydGggRGF0 TUx9K7TiXkl4JFMmtWzkEZ 0ncGFkZGlu Vx8alPqddXluAY8zACVekw heq005SmDzb2xeOPWkpLYp JTjsECQ0M30ev0J0HOLrWY OmQUB5rGG6 eC3tkZukegrdiTWtbTnymn JbgAstOUavPTecW592HHOp tEdnKtOfWSs1Q3IgOkl2TY WbiGppZF6n eCLcOIldPp5acIufkJbiHX 7dNVRgctpmy044TnQol4wk HUZemISaNIltXNJ3O56pi6 K2SHCsNEUi MGV6uWY6fP4cmUtyjnhazS VmdDsgdmVydGljYWwtYWxp W562BLQajNahMwUvkTb8Z2 TnSck5DGQb rAtzFX8gmTSlYIxsZx8wvY ncaIjnBC6rLYWzpetei527 QdKda7zdXCXptJMeBMrmXK Z3V22na3T9 ULHyBGTeRUE1ySO2uN2ybK lnbjogbGVmdDsgdmVydGlj OUzmJWabX337QLDajYduVu BhdGllbnQg UGycOWo6K8CtHppycQW+PC 30XYCrJM59mTVplELvb9ag tUc5OmIrAHQnNKL6jOkwKN wkm7PcQOWv X05uyYCym1E3WWAxdFxdnQ XhEeUmrSD5cN0iQYqblnyj s0hscbdsTlktu2lcwj83nW 17Q56uVUgv ZHRoPSIzMCUiIHZhbGlnbj 4avM5uFz4+DYCbxQU8zWW2 cM0yIDEcTdS0AIabB230Wk RvcCIvPjxj w1khn4nmsXs1AlO9LZJcrg VzbIwwEGG2a6OeTp63C19b IHdpZHRoPSIyMCUiIHZhbG gctp1awE6s Ii8+CKNhvTA0dWW1jX2kBl BeZxL6IAkpX138LtXycVUi PjmmG11zW1KlyBU+PHRyPj y6MHYcbAjv NG1ucYSpWBkgSt5xPCR7Ff UlEePbIHsnK8LpGHWzrvww nrdwyZF5EYIcFPCxeH51Pz 9udDogMTBw zXCMgA1mnhawv8cepejdJw QeCGFcKLi7CXl3LREcqXpp WoGrVDP4UwR7XZV7mHKsiA 1hbGlnbjog iF0aU4BkPDEtbhrrMd90rF 1kWdEzWbW1APxeIyq+UEhJ HRTBIALSROEWHG7IUW06SL 84iCSsy5W7 lQJ9I5TpIGXzymsgjbqbtG V7CVNsTMTmvI57pESuDLzu Mq1dd3B5d762BRDgDBTwwN 73Rx2cyCrp EZLykQAGiZ6pnkkel8pxly itXrAmPNAkJUw2EVz6LXFr zBphYwDyFKZ6RgY6HXW6cF IkoK9hwUbj fkjheH8tFrx+MTIvMjcvMT y7IqqccJR+FTYgDIB1xSoc VAkzAMSniK6qXSPlU8o0Ay UeLrM5VFkb B3BoXKTlicasQr49zE9pNe YsOrH3DPsjA6VzheG5RYIv sCZoWWiaMTP1X57nv6A1SJ MwMDAwMDA7 mQY6qI0fsRmuiezmcKPrpS zhwmDufRqbSZnkNGmvF788 IHRvcDsnPjUxIFllYXJzPC 47QA34xDYp v9E3eKX9K7ChXAWddzcjpg zkwVF9MRJyOKVlhY71mZYd NMysDj2ye3C8x138NGQwFZ IxzC73Rf9h oAcpETXnkCKGjG2voazaq4 xifyamQbQeDZZcPCc0JJo6 UETzsKpwJnLyPCS2YiT2YI V4pDDzeP6m eAzzxopbaU3xXjp+RmVtYW nuFY81PB01qTGtn4S8sAM4 T9VrUXGldetftyoxtNF8XB SkJEFqbU29 fHNgRRofCc0ga9E0f387DU DyQDKjmZ20Ru1wsDmnLGVw pAHFfE6cmysdj2aajfoeJp AwMDAwMDt0 ECw5XMTpkSuxPkRqAYV6Pk T8OSG6bYErsV4isEmdxvrz xC6oBcg+U0H2pNZ7bXCimH wvdGQ+PC90 xu77Y0NePidsDja2GGOdBX X5xLP0vX9rHINmXLgej4X8 bDJ8R7HgioNnie8er0ysRJ JgAKzcG92e sDJfd7K0NZAuwHQ6IYKqcA zkScOfiC50Wfc+PGNvbGdy b4IqQcgsi3fdw7hlhBn4Zj MwJSIgdmFs dSviOHF5s4XgGr93X76eYB dpZHRoPSIzMCUiIHZhbGln hp0ydP2wMu8+ECAmmUD3bE S4vW6aCoIt AbS0TEiwL761JqYihXNnCe mze1ayi0wwyNm6CmEgMOOy mjFvyXjlBUL4a1ZfSy58W6 OnnBfqu1Vf Mbv6dt38gXPcy8M8hZB5W5 PuIGBukkeosFXykCtdFX7o KWRjxtlsTGKfoH4jGBImK6 v4JtKmTaC8 JSxmD8KasfU8YHKdlCSjYM PsmQXBbC2xuehnh7rkhqar CuTkVGWrSZy3YEt8BTIasR duOiBsZWZ0 YfR3DUH8vXXgvS2xeHzpzo fxwI0gMwp+NPs0k4crtRYs BF8eiKL4JH00WR80dIJrq0 S5tIE5T1Yp JZXhocsphnyksHV5OTCnQI UqqU78Fz7peXiqOg9oXIRo MFR3TZZjnLVeZ5CkdD3pTm AjMDAwMDAw I0CzwBHwKCiyZ978CIluHf F3WLXmfdIeY0ZyNWRukCaz DsD4n2Q5Jm1AWX57QZ04SF 26rYWwl9R1 nUX9Y0JyJBByhfzufxjxrB P4XWQqQIFemL33Rq5ceHry Mg9fEEJqGFZ2KVNtoZMaY1 NrjZ2zPxRr ZLWhSDHuA5SdnOLtEYppC0 39GEiqYcC8XLXmazVhU8Ux WFYsoTncUmD4j5W8By4IAc 13GG44MH79 rFCrq3U6mGA7F5VdNQMahn lxkecfdOA2CHYkQXEnoC38 Ge6gjPjmAd8gTEFeHCK0HK PizWPoA2Gr gB3vFoYeXOUjFZBfL2PkeJ HcUJviC517GDvwIlG5DRGs ahWcB5LgZKJbtOgrQvA1w8 D2Ws5MWBpz xnm5A9PnQmiltCO+PC90YW VlRE40wYBcbFWhr5bviPf2 MhNmYYLqNDY2yLgrQWebh7 DuGAYaS79s cQUrd4P4VGYqt (more content not included)... Normal [facility] Consent for Procedure/Surger yon 11-07-2023 Consent for Procedure/Surgery [id number]#[id number] 0TIFF Normal [facility] Consent for Treatmenton 10-20 Consent for Treatment [id number] 0TIFF Normal [facility] Inpatient Patient Summaryon 11-07-2023 Inpatient Patient Summary [place] [id number] Clinical Summary Person Information Name: FELY MELÉNDEZ Age: 53 Years : 1970 Sex: Female PCP: CARRIE TALBOT MD Marital Status: Race: White Ethnicity: Non- or Language: Citizen Of [place] Visit Id: Visit Reason: GROSS HEMATURIA Speciality: Acuity: Enc Type: Outpatient Med Service: Surgery Arrival: 11/07/2023 09:24:15 Discharge: Dispo Type: Address: [address] [place] [phone] Provider Notes: Diagnosis: Gross hematuria; OAB (overactive [...] EU - Cystoscopy Discharge Instructions (CUSTOM) Normal [facility] IntraOperative Documentson 0 11-07-2023 IntraOperative Documents [id number] 0TIFF [facility] Lab Reportson 11-07-2023 Lab Reports [id number]#[id number] 0TIFF [facility] Main OR Intraoperative Recor don 11-07-2023 Main OR Intraoperative Record IntraOp Document Type FTURO Summary Primary Physician: Gemma Blanco MD Finalized Date/Time: 11/07/23 10:45:52 Pt. Name: FELY MELÉNDEZ/Sex: 1970 Female Med Rec #: [id number] Physician: Gemma Blanco MD Financial #: [id number] Pt. Type: O Room/Bed: / Admit/Disch: 11/07/23 09:24:15 - Institution: Case Times FTURO Entry 1 Patient Times In Room 11/07/23 10:25:00 Out Room 11/07/23 10:36:00 Procedure Times Start 11/07/23 10:27:00 Stop 11/07/23 10:31:00 Anesthesia Times Last Modified By: Grzegorz GARLAND, Magali Pitt 11/07/23 10:30:26 Case Attendance FTURO Entry 1 Entry 2 Entry 3 Case Attendee Gemma Blanco MD, RN, Magali eYe LPN, Evi Pitt Role Performed Surgeon - Primary Correctional Corporal - Primary Scrub - Primary Time In [...] URINE CYTOLOGY Primary Procedure Yes Primary Surgeon Francis HERNANDEZ, Gemma Siegel Start 11/07/23 10:27:00 Stop 11/07/23 10:31:00 Anesthesia [...] 10:40 Magali Lantigua RN 11/07/23 10:45 Normal [facility] Main OR Preoperative Recordo n 11-07-2023 Main OR Preoperative Record Holding Area Document Type FTURO Summary Primary Physician: Gemma Blanco MD Finalized Date/Time: 11/07/23 09:53:28 Pt. Name: FELY MELÉNDEZ/Sex: 1970 Female Med Rec #: [id number] Physician: Gemma Blanco MD Financial #: [id number] Pt. Type: O Room/Bed: / Admit/Disch: 11/07/23 [...] JARETT Sanchez RN, Ruthann 11/07/23 09:53 Normal [facility] Operative Reporton Operative Report Patient: FELY MELÉNDEZ [...] OAB and adrenal adenoma workup . Normal [facility] Comment on above: Result Comment: Elec tronically Signed By: Gemma Blanco MD\.br\Date and Time Signed: 11/07/23 10:42 EDT Outpatient Surgery Discharge Instructionon 11-07-2023 Outpatient Surgery Discharge Instruction [id number] 0TIFF Normal [facility] Outpatient Surgery Discharge Instruction [place] [id number] Patient Discharge Instructions PERSON INFORMATION Name: FELY [...] Date You may receive a survey from [employer] asking you to rate your care experience. Your feedback is important and will help us understand what we do well and how we can improve the quality of care we provide to you, your loved ones and our community. It?s an honor to serve you. Thank you for choosing [facility] Normal [facility] Progress Note-Physicianon Progress Note-Physician Patient: FELY MELÉNDEZ [...] day, # 1 tab(s), Refills(s) 0, Pharmacy: [facility], 163, cm, 10/03/23 10:16:00 EDT, Height/Length Dosing, 113.5, kg, 10/03/23 10:16:00 EDT, Weight Dosing... dexamethasone 1 mg oral tablet: 1 mg = 1 tab(s), Oral, Once, Take at 11 PM; Have cortisol level drawn at 8 AM the next day, # 1 tab(s), Refills(s) 0, Pharmacy: [facility], 163, cm, 10/03/23 10:16:00 EDT, Height/Length Dosing, 113.5, kg, 10/03/23 10:16:00 EDT, Weight Dosing... mirabegron 50 mg oral tablet, extended release: 50 mg = 1 tab(s), Oral, Daily, # 30 tab(s), Refills(s) 11, Pharmacy: [facility], 163, cm, 10/03/23 10:16:00 EDT, Height/Length Dosing, 113.5, kg, 10/03/23 10:16:00 EDT, Weight Dosing Documented Medications Documented Pepcid AC: 20 mg, Oral, Once losartan 50 mg Tab: 50 mg = 1 tab(s) metoprolol 25 mg ER Tab: 25 mg = 1 tab(s), Oral, Daily spironolactone 25 mg Tab: 25 mg = 1 tab(s) Impression and Plan Assessment and Plan: Diagnosis: Adrenal adenoma (FYD75-CS D35.00, Working, Medical), Gross hematuria (OXP67-ZS R31.0, Discharge, Medical), OAB (overactive bladder) (TZT16-MM N32.81, Discharge, Medical), TEAGAN (stress urinary incontinence, female) (KBO59-LT N39.3, Working, Medical). 53 year old female [...] cysto neg -Follow up urine cytology Normal [facility] Comment on above: Result Comment: Elec tronically Signed By: Francis HERNANDEZ, Gemma Siegel\.br\Date and Time Signed: 11/07/23 10:46 EDT RAD - CT Reporton 11-07-2023 RAD - CT Report [id number]#1.00 TIFF Normal [facility] Urine Cytology ([facility])on 0 11-07-2023 Method of Extraction Cystoscopy Normal [facility] Comment on above: Performed By: #### 1 [id number] #### [facility] [address] Number of Jars 1 Invalid Interpretation Code [facility] Comment on above: Performed By: #### 1 [id number] #### [facility] [address] Specimen Cystoscopy Normal [facility] Comment on above: Performed By: #### 1 [id number] #### [facility] [address] Type of Service Technical Only Normal [facility] Comment on above: Performed By: #### 1 [id number] #### [facility] [address] [place] [address] Lab Reportson 10-25-2023 Lab Reports [id number]#1.0 0TIFF Normal [facility] Lab Reportson 10-17-2023 Lab Reports [id number]#1.0 0TIFF Normal [facility] Patient Educationon 10-06-19 Patient Education Urology [...] these instructions at home: Medicines ? Take fzgy-vts-fdyjjrc and prescription medicines only as told by [...] provider. Document Revised: 12/18/2020 Document Reviewed: 12/18/2020 [employer] Patient Education ? 2022 [employer] Hematuria, Adult Hematuria is blood in [...] these instructions at home: Medicines ? Take yqiy-iou-pyuxcxb and prescription medicines only as told by [...] follow y (more content not included)... Normal [facility] Formson 10-04-2023 Forms [id number]#1. 00TIFF Normal [facility] Lab Reportson 10-04-2023 Lab Reports [id number] 0TIFF [facility] Ambulatory Visit Summaryon 0 10-03-2023 Ambulatory [...] Pharmacy Information [facility]: [address], [place] [id number] [phone] Allergies Cipro (Unknown) Nyquil Cold Medicine (Unknown) [...] for choosing us for your care. Normal [facility] ED Note-Physicianon 08-16-19 ED Note-Physician [id number]#1.0 0TIFF Normal [facility] Urine Cultureon 08-09-2023 Bacteria identified Cx Nom (U) 75,000 colonies/ml mixed bacterial skin contaminants 2 Days PERFORMED BY: [place] [address] PATHOLOGIST FURNACE BRAZER ISABELA MUÑOZ M.D. Normal [facility] Comment on above: Performed By: #### C UU #### [address] Laboratory - Chemistry and C hemistry - challengeon 08-03-2023 Bilirubin Ql (U) Negative [facility] Glucose (U) [Mass/Vol] Negative [facility] Ketones Ql (U) Negative [facility] pH (U) 5.0 [pH] [facility] Specific gravity (U) [Rel density] 1.015 [facility] Urobilinogen (U) [Mass/Vol] 0.2 mg/dL [facility] Laboratory - Specimen inform ationon 08-03-2023 Appearance (U) clear [facility] Color (U) yellow [facility] Laboratory - Urinalysison Leukocyte esterase Test strip Ql (U) Negative [facility] Nitrite Ql (U) Negative [facility] Protein Ql (U) + [facility] No Panel Informationon 08-02 Urine Occult Blood + [facility] XR KNEE 4+ VIEWS LEFTon XR [...] Weight Tips; Status:Complete - Retrospective Authorization; Done: [id number] Some eating tips that can help you lose weight.; Status:Complete - Retrospective Authorization; Done: [id number] SocHx: Current smoker You need to quit smoking.; Status:Complete - Retrospective Authorization; Done: [id number] Tobacco Use Screening; Status:Complete; Done: [id number] You need to stop smoking. Though it is not easy, more than half of all adult smokers have quit. We encourage you to write down all the reasons you should quit smoking and set a quit date for yourself. Ask us how we can help. You may also call 2-107-XNNPRevolt TechnologyNOW for free resources and assistance.; Status:Complete - Retrospective Authorization; Done: [id number] Patient Instructions Please bring all medicines, vitamins, [...] negative for complaint. Vitals Vital Signs Recorded: [id number] 09:55AM Heart Rate60, L Radial Vsqjvthu398, LUE, Sitting Vfbcjuugz94, LUE, Sitting Height5 ft 4 in Rycnur775 lb BMI Szwuwpaqeg99.2 kg/m2 BSA Calculated2.11 Tobacco Usea) Yes Patient [...] no ma (more content not included)... Normal [facility] Tobacco Screening.on 023 Fall risk assessment c) Not medically indicated -[facility] 250 DO Work Phone: Tobacco use status [facility] a) Yes [facility] 250 DO Work Phone: Tobacco Screening. Yes [facility] y 250 DO Work [...] we can help. You may also call 7-234-ZZTK-NOW for free resources and assistance.; Status:Complete - [...] to retrieve her recent Holter monitor from [employer]. I suggested a trial of a [...] VITALSon 08-11-2022 Adult depression screening assessment No -[facility] 250 DO Work Phone: Tobacco Screening.on 023 Tobacco use status [facility] a) Yes [facility] 250 DO Work Phone: Tobacco Screening. Yes [facility] 250 DO Work Phone: ECHOCARDIO M/2D COMPLETEon 0 06-27-2022 ECHOCARDIO M/2D COMPLETE Patient: FELY MELÉNDEZ Exam Date: 06/27/2022 : 1970 Gender:F Ordering : DR CARRIE TALBOT M.D. Admission #: [id number] Family : Order #: [id number] CLICK HERE TO VIEW EXAM ECHOCARDIOGRAM REPORT [...] M.D. on 06/28/2022 at 19:30 Normal [facility] BNPon 06-10-2022 Natriuretic peptide B (Bld) [Mass/Vol] 384.0 pg/mL Normal <=900.0 [facility] Comment on above: Performed By: #### B SQUARING MACHINE OPERATOR, BMP, HSTROPN ####[facility] Rdfvzxxxxz[address] [place], [place] [address]Dr. Alis Saha CBC AUTO DIFFon 06-10-2022 BASO # 0.0 103/ul Normal 0.0-0.1 [facility] Comment on above: Performed By: #### C BC ####[facility] Qwv[address] [place], [place] [address]Dr. Alis Saha Basophils/100 WBC (Bld) 0.5 % Normal 0.2-2.0 [facility] Comment on above: Performed By: #### C BC ####[facility] Dry[address] [place], [place] [address]Dr. Alis Saha EO # 0.1 103/ul Normal 0.0-0.7 [facility] Comment on above: Performed By: #### C BC ####[facility] Weukrj[address]ou[address] [place], [place] [address]Dr. Alis Saha Eosinophils/100 WBC (Bld) 1.6 % Normal 0.9-7.0 [facility] Comment on above: Performed By: #### C BC ####[facility] Itxxotnzxt[address] [place], [place] [address]Dr. Alis Saha Erythrocyte distribution width (RBC) [Ratio] 15.9 % Critically high 11.0-15.0 [facility] Comment on above: Performed By: #### C BC ####[facility] Uritsruofx[address] [place], [place] [address]Dr. Alis Saha Hematocrit (Bld) [Volume fraction] 37.1 % Normal 36.0-48.0 [facility] Comment on above: Performed By: #### C BC ####[facility] [address] [place] [address]Dr. Alis Saha Hemoglobin (Bld) [Mass/Vol] 12.2 g/dL Normal 12.0-16.0 [facility] Comment on above: Performed By: #### C BC ####[facility] [address] [place] [address]Dr. Alis Saha IG # 0.02 10e3/ul Normal 0.00-0.03 [facility] Comment on above: Performed By: #### C BC ####[facility] Znjzrcfrrj[address] [place], [place] [address]Dr. Alis Saha IG % 0.2 % Normal 0.0-0.5 [facility] Comment on above: Performed By: #### C BC ####[facility] Exvdtbmahl[address] [place], [place] [address]Dr. Alis Saha LYMPH # 3.2 103/ul Normal 1.2-3.8 [facility] Comment on above: Performed By: #### C BC ####[facility] [address] [place] [address]Dr. Alis Saha Lymphocytes/100 WBC (Bld) 37.3 % Normal 20.5-60.0 [facility] Comment on above: Performed By: #### C BC ####[facility] [address] [place] [address]Dr. Alis Saha MANUAL DIFF REQ NO Normal [facility] Comment on above: Performed By: #### C BC ####[facility] Mnnsamqtrk[address] [place], [place] [address]Dr. Alis Saha MCH (RBC) [Entitic mass] 29.8 pg Normal 26.7-34.0 [facility] Comment on above: Performed By: #### C BC ####[facility] Egvoqkegba[address] [place], [place] [address]Dr. Alis Saha MCHC (RBC) [Mass/Vol] 32.9 g/dL Normal 29.9-35.2 [facility] Comment on above: Performed By: #### C BC ####[facility] [address] [place] [address]Dr. Alis Saha MCV (RBC) [Entitic vol] 90.5 fL Normal 81.0-99.0 [facility] Comment on above: Performed By: #### C BC ####[facility] F[address] [place], [place] [address]DrMiranda Saha MONO # 0.4 103/ul Normal 0.3-0.8 [facility] Comment on above: Performed By: #### C BC ####[facility] Ctyscmrwgv[address] [place], [place] [address]Dr. Alis Saha Monocytes/100 WBC (Bld) 4.6 % Normal 1.7-12.0 [facility] Comment on above: Performed By: #### C BC ####[facility] Vipuybs[address] [place], [place] [address]Dr. Alis Saha NEUT # 4.8 103/ul Normal 1.4-6.5 [facility] Comment on above: Performed By: #### C BC ####[facility] Xjvlqhyowq[address] [place], [place] [address]Dr. Alis Saha Neutrophils/100 WBC (Bld) 55.8 % Normal 43.0-75.0 [facility] Comment on above: Performed By: #### C BC ####[facility] Ezguilvgzx[address] [place], [place] [address]Dr. Alis Saha Platelet mean volume (Bld) [Entitic vol] 9.9 fL Normal 9.5-13.5 [facility] Comment on above: Performed By: #### C BC ####[facility] Dlaxaruryg[address] [place], [place] [address]Dr. Alis Saha PLT 265 103/ul Normal 150-450 [facility] Comment on above: Performed By: #### C BC ####[facility] Tmfute[address]utk[address] [place], [place] [address]DrMiranda Saha RBC 4.10 106/ul Critically low 4.20-5.[address] [facility] Comment on above: Performed By: #### C BC ####[facility] [address] [place], [place] [address]PwMiranda Saha WBC 8.7 103/ul Normal 4.0-11.0 [facility] Comment on above: Performed By: #### C BC ####[facility] [address] [place], [place] [address]VnMiranda Saha Covid-19 PCR (CVDTB)on 05-23 SARS-CoV-2 (COVID-19) RNA AMANDA+probe Ql (Unsp spec) Not detected Normal NOT DETECTED [facility] Comment on above: Result Comment: When diagnostic [...] for this test is supported by the Od Grinder Operator of Health and Human Service's declaration that [...] used). Performed By: #### C VDTBH #### [facility] Laboratory [address] [place], [place] [address] Dr. Alis Saha PROF CHEM 8 (BAS METB)on Anion gap [Moles/Vol] 11.7 mmol/L Normal [facility] Comment on above: Performed By: #### B SQUARING MACHINE OPERATOR, BMP, HSTROPN ####[facility] [address] [place], [place] [address]TxMiranda Saha Calcium [Mass/Vol] 8.8 mg/dL Normal 8.5-10.1 [facility] Comment on above: Performed By: #### B SQUARING MACHINE OPERATOR, BMP, HSTROPN ####[facility] [address]ks[address] [place] [address]Dr. Alis Saha Chloride [Moles/Vol] 108 mmol/L Critically high 98-107 [facility] Comment on above: Performed By: #### B SQUARING MACHINE OPERATOR, BMP, HSTROPN ####[facility] [address] [place] [address]Dr. Alis Saha CO2 [Moles/Vol] 23.7 mmol/L Normal 21.0-32.0 [facility] Comment on above: Performed By: #### B SQUARING MACHINE OPERATOR, BMP, HSTROPN ####[facility] Y[address]xkit[address] [place], [place] [address]Dr. Alis Saha Creatinine [Mass/Vol] 0.70 mg/dL Normal 0.55-1.02 [facility] Comment on above: Performed By: #### B SQUARING MACHINE OPERATOR, BMP, HSTROPN ####[facility] Gaeeuhcfvv[address] [place], [place] [address]Dr. Alis Saha EGFR-AF ENGLISH >60 Normal >=60 [facility] Comment on above: Performed By: #### B SQUARING MACHINE OPERATOR, BMP, HSTROPN ####[facility] A[address]immlwh[address] [place], [place] [address]Dr. Alis Saha EGFR-NON AF ENGLISH >60 Normal >=60 [facility] Comment on above: Performed By: #### B SQUARING MACHINE OPERATOR, BMP, HSTROPN ####[facility] [address] [place] [address]Dr. Alis Saha Glucose [Mass/Vol] 119 mg/dL Critically high 74-106 T [facility] Comment on above: Performed By: #### B SQUARING MACHINE OPERATOR, BMP, HSTROPN ####[facility] [address] [place] [address]Dr. Alis Saha Potassium [Moles/Vol] 3.4 mmol/L Critically low 3.5-5.1 [facility] Comment on above: Performed By: #### B SQUARING MACHINE OPERATOR, BMP, HSTROPN ####[facility] [address] [place] [id number]. Alis Saha Sodium [Moles/Vol] 140 mmol/L Normal 136-145 [facility] Comment on above: Performed By: #### B SQUARING MACHINE OPERATOR, BMP, HSTROPN ####[facility] [address] [place] [address]Dr. Alis Saha Urea nitrogen [Mass/Vol] 14.0 mg/dL Normal 7.0-18.0 [facility] Comment on above: Performed By: #### B SQUARING MACHINE OPERATOR, BMP, HSTROPN ####[facility] [address] [place] [address]Dr. Alis Saha Urea nitrogen/Creatinine [Mass ratio] 20.0 mg/mg Normal [facility] Comment on above: Performed By: #### B SQUARING MACHINE OPERATOR, BMP, HSTROPN ####[facility] [address] [place] [address]Dr. Alis Saha TROPONIN, HIGH SENSITIVITYon 06-10-2022 HSTROP 9.9 pg/mL Normal 4.0-51.3 [facility] Comment on above: Result Comment: CUT- OFF POINTS HAVE BEEN ESTABLISHED BASED ON THE FOURTH UNIVERSAL DEFINITIONS OF MYOCARDIAL INFARCTION. THE UPPER REFERENCE LIMIT (URL) OF TROPONIN, DEFINED THE 99TH PERCENTILE OF cTnI DISTRIBUTION IN A REFERENCE POPULATION, HAS BEEN CONFIRMED THE DECISION THRESHOLD FOR [place] DIAGNOSIS. Performed By: #### B SQUARING MACHINE OPERATOR, BMP, HSTROPN ####[facility] [address] [place] [address]Dr. Alis Saha XR CHEST 1 Von 06-10-2022 [...] POPPY GREEN Date: 2022-06-09 23:02 Normal [facility] XR LSPINE MIN 4 VIEWSon 01-20 XR [...] CARLOS VILLATORO Date: 2022-02-02 07:17 Normal [facility] XR CSPINE 2_3 VIEWSon 2021 XR CSPINE [...] CARLOS VILLATORO Date: 2021-10-01 07:13 Normal [facility] CBC AUTO DIFFon 09-30-2021 BASO # 0.0 103/ul Normal 0.0-0.1 [facility] Comment on above: Performed By: #### C BC ####[facility] [address] [place] [address]Dr. Alis Saha Basophils/100 WBC (Bld) 0.4 % Normal 0.2-2.0 [facility] Comment on above: Performed By: #### C BC ####[facility] [address] [place] [id number]. Alis Saha EO # 0.1 103/ul Normal 0.0-0.7 [facility] Comment on above: Performed By: #### C BC ####[facility] [address] [place] [id number]. Alis Saha Eosinophils/100 WBC (Bld) 1.6 % Normal 0.9-7.0 [facility] Comment on above: Performed By: #### C BC ####[facility] [address]bs[address]oid[address] [place] [address]Dr. Alis Saha Erythrocyte distribution width (RBC) [Ratio] 15.1 % Critically high 11.0-15.0 [facility] Comment on above: Performed By: #### C BC ####[facility] Upkpmbzqtl[address] [place], [place] [address]Dr. Alis Saha Hematocrit (Bld) [Volume fraction] 41.9 % Normal 36.0-48.0 [facility] Comment on above: Performed By: #### C BC ####[facility] [address]vgst[address] [place], [place] [address]Dr. Alis Saha Hemoglobin (Bld) [Mass/Vol] 13.5 g/dL Normal 12.0-16.0 [facility] Comment on above: Performed By: #### C BC ####[facility] S[address]yijuk[address] [place], [place] [address]Dr. Alis Saha IG # 0.01 10e3/ul Normal 0.00-0.03 [facility] Comment on above: Performed By: #### C BC ####[facility] I[address]wkqx[address] [place], [place] [address]Dr. Alis Saha IG % 0.1 % Normal 0.0-0.5 [facility] Comment on above: Performed By: #### C BC ####[facility] Ftzvx[address]hya[address] [place], [place] [address]Dr. Alis Saha LYMPH # 2.3 103/ul Normal 1.2-3.8 [facility] Comment on above: Performed By: #### C BC ####[facility] Lnjuv[address]ukq[address] [place], [place] [address]Dr. Alis Saha Lymphocytes/100 WBC (Bld) 27.9 % Normal 20.5-60.0 [facility] Comment on above: Performed By: #### C BC ####[facility] [address] [place] [phone]. Alis Saha MANUAL DIFF REQ NO Normal [facility] Comment on above: Performed By: #### C BC ####[facility] [address] [place] [id number]. Alis Saha MCH (RBC) [Entitic mass] 28.8 pg Normal 26.7-34.0 [facility] Comment on above: Performed By: #### C BC ####[facility] I[address]ixajr[address] [place] [id number]. Alis Saha MCHC (RBC) [Mass/Vol] 32.2 g/dL Normal 29.9-35.2 [facility] Comment on above: Performed By: #### C BC ####[facility] [address]emk[address] [place], [place] [address]Dr. Alis Saha MCV (RBC) [Entitic vol] 89.3 fL Normal 81.0-99.0 [facility] Comment on above: Performed By: #### C BC ####[facility] K[address] [place], [place] [address]Dr. Alis Saha MONO # 0.5 103/ul Normal 0.3-0.8 [facility] Comment on above: Performed By: #### C BC ####[facility] Siywclgueb[address] [place], [place] [address]Dr. Alis Saha Monocytes/100 WBC (Bld) 5.6 % Normal 1.7-12.0 [facility] Comment on above: Performed By: #### C BC ####[facility] Codsfrejbx[address] [place], [place] [address]Dr. Alis Saha NEUT # 5.3 103/ul Normal 1.4-6.5 [facility] Comment on above: Performed By: #### C BC ####[facility] Cq[address]vvv[address] [place], [place] [address]Dr. Alis Saha Neutrophils/100 WBC (Bld) 64.4 % Normal 43.0-75.0 [facility] Comment on above: Performed By: #### C BC ####[facility] [address] [place] [address]Dr. Alis Saha Platelet mean volume (Bld) [Entitic vol] 9.5 fL Normal 9.5-13.5 [facility] Comment on above: Performed By: #### C BC ####[facility] [address] [place] [address]Dr. Alis Saha PLT 316 103/ul Normal 150-450 [facility] Comment on above: Performed By: #### C BC ####[facility] [address]sp[address]rzo[address] [place] [address]Dr. Alis Saha RBC 4.69 106/ul Normal 4.20-5.40 [facility] Comment on above: Performed By: #### C BC ####[facility] E[address]fxss[address] [place], [place] [address]Dr. Alis Saha WBC 8.2 103/ul Normal 4.0-11.0 [facility] Comment on above: Performed By: #### C BC ####[facility] [address]jxmf[address] [place], [place] [address]Dr. Alis Yifan GLYCOHEMOGLOBIN A1Con 2021 ADA RECOMMENDATION SEE BELOW Normal [facility] Comment on above: Result Comment: ADA RECOMMENDED LIMIT 4.0 - 6.0 ADA THERAPEUTIC TARGET < 7.0 ACTION SUGGESTED > 7.0 Performed By: #### A 1C ####[facility] [address] [place], [place] [address]Dr. Alis Saha Glucose [Mass/Vol] 128 mg/dL Normal [facility] Comment on above: Performed By: #### A 1C ####[facility] [address] [place] [address]DrMiranda Alis Yifan HbA1c (Bld) [Mass fraction] 6.1 % Normal 4.5-6.2 [facility] Comment on above: Performed By: #### A 1C ####[facility] [address] [place] [address]DrMiranda Saha PROF CHEM 8 (BAS METB)on Anion gap [Moles/Vol] 11.5 mmol/L Normal [facility] Comment on above: Performed By: #### T SH, BMP #### [facility] [address] [place] [address] Dr. Alis Saha Calcium [Mass/Vol] 8.7 mg/dL Normal 8.5-10.1 [facility] Comment on above: Performed By: #### T SH, BMP #### [facility] [address] [place] [address] Dr. Alis Saha Chloride [Moles/Vol] 104 mmol/L Normal 98-107 [facility] Comment on above: Performed By: #### T SH, BMP #### [facility] [address] [place] [address] Dr. Alis Saha CO2 [Moles/Vol] 25.5 mmol/L Normal 21.0-32.0 [facility] Comment on above: Performed By: #### T SH, BMP #### [facility] [address] [place] [address] Dr. Alis Saha Creatinine [Mass/Vol] 0.85 mg/dL Normal 0.55-1.02 [facility] Comment on above: Performed By: #### T SH, BMP #### [facility] [address] [place] [address] Dr. Alis Saha EGFR-AF ENGLISH >60 Normal >=60 [facility] Comment on above: Performed By: #### T SH, BMP #### [facility] [address] [place] [address] Dr. Alis Saha EGFR-NON AF ENGLISH >60 Normal >=60 [facility] Comment on above: Performed By: #### T SH, BMP #### [facility] [address] [place] [address] Dr. Alis Saha Glucose [Mass/Vol] 101 mg/dL Normal 74-106 [facility] Comment on above: Performed By: #### T SH, BMP #### [facility] [address] [place] [address] Dr. Alis Saha Potassium [Moles/Vol] 4.0 mmol/L Normal 3.5-5.1 [facility] Comment on above: Performed By: #### T SH, BMP #### [facility] [address] [place] [address] Dr. Alis Saha Sodium [Moles/Vol] 137 mmol/L Normal 136-145 [facility] Comment on above: Performed By: #### T SH, BMP #### [facility] [address] [place] [address] Dr. Alis Saha Urea nitrogen [Mass/Vol] 13.0 mg/dL Normal 7.0-18.0 [facility] Comment on above: Performed By: #### T SH, BMP #### [facility] [address] [place] [address] Dr. Alis Saha Urea nitrogen/Creatinine [Mass ratio] 15.3 mg/mg Normal [facility] Comment on above: Performed By: #### T SH, BMP #### [facility] [address] [place] [address] Dr. Alis Saha TSHon 09-30-2021 TSH 1.548 uIU/mL Normal 0.358-3.740 [facility] Comment on above: Performed By: #### T SH, BMP #### [facility] [address] [place] [address] Dr. Alis Saha TSH RANGE SEE BELOW Normal [facility] Comment on above: Result Comment: <0.3 4 UIU/ml HYPERTHYROID 0.34-5.60 UIU/ml EUTHYROID >5.60 UIU/ml HYPOTHYROID Performed By: #### T SH, BMP #### [facility] [address] [place] [address] Dr. Alis Saha VC CONSULT FOLLOWUPon 2021 VC CONSULT FOLLOWUP Patient: FELY MELÉNDEZ Exam Date: 07/19/2021 : 1970 Gender:F Ordering : DR JUAN CARLOS VILLATORO M.D. Admission #: [id number] Family : Order #: [id number] CLICK HERE TO VIEW EXAM RADIOLOGY REPORT [...] Villatoro MD on 07/19/2021 at 15:16 Normal [facility] VC EXT VENOUS RT LIMITEDon 0 07-19-2021 VC EXT VENOUS RT LIMITED Patient: FELY MELÉNDEZ Exam Date: 07/19/2021 : 1970 Gender:F Ordering : DR JUAN CARLOS VILLATORO M.D. Admission #: [id number] Family : Order #: [id number] CLICK HERE TO VIEW EXAM RADIOLOGY REPORT [...] to distal calf. 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 Admission #: [id number] Family : Order #: [id number] CLICK HERE TO VIEW EXAM RADIOLOGY REPORT [...] Palacios M.D. on 07/14/2021 at 14:50 Normal [facility] Vital Signs Date Time Vital Sign Value Performing Clinician Facility 03-04-2024 10:12-040 Body mass index (BMI) [Ratio] 42.05 kg/m2 [email or web address] Work Phone: [facility] 03-04-2024 10:12-040 Body weight 111.13 kg [facility] Phone: [facility] 03-04-2024 10:12-0400 Diastolic blood pressure 94 mm[Hg] [facility] Phone: [facility] 03-04-2024 10:12-0400 Systolic blood pressure 142 mm[Hg] Nando Navarrete DO Work Phone: [facility] 02-14-2024 15:42-0400 Blood Pressure Location Mikhail JEFFERSONL [facility] 02-14-2024 15:42-0400 Diastolic blood pressure 78 mm[Hg] Mikhail NILL [facility] 02-14-2024 15:42-0400 Heart rate 76 /min Mikhail NILL [facility] 02-14-2024 15:42-0400 Respiratory rate 16 /min Mikhail NILL [facility] 02-14-2024 15:42-0400 Systolic blood pressure 118 mm[Hg] Mikhail NILL [facility] 01-18-2024 11:13-0400 Body height 163.83 cm [facility] 01-18-2024 11:13-0400 Body mass index (BMI) [Ratio] 42 kg/m2 [facility] 01-18-2024 11:13-0400 Body weight 112.94 kg [facility] 01-18-2024 11:13-0400 Diastolic blood pressure 80 mm[Hg] [facility] 01-18-2024 11:13-0400 Heart rate 65 /min [facility] 01-18-2024 11:13-0400 Systolic blood pressure 146 mm[Hg] [facility] 11-03-2023 10:24-0400 Diastolic blood pressure 87 mm[Hg] Bonny Meyer MD Work Phone: [facility] 11-03-2023 10:24-0400 Systolic blood pressure 132 mm[Hg] Bonny Meyer MD Work Phone: [facility] 11-03-2023 10:04-0400 Body height 162.6 cm Bonny Meyer MD Work Phone: [facility] 11-03-2023 10:04-0400 Body mass index (BMI) [Ratio] 43.43 kg/m2 Bonny Meyer MD Work Phone: [facility] 11-03-2023 10:04-0400 Body weight 114.76 kg Bonny Meyer MD Work Phone: [facility] 11-03-2023 10:04-0400 Heart rate 68 /min Bonny Meyer MD Work Phone: [facility] 10-03-2023 09:53-0400 Diastolic blood pressure 106 mm[Hg] Zulema Orzech [facility] 10-03-2023 09:53-0400 Heart rate 73 /min Zulema Orzech [facility] 10-03-2023 09:53-0400 Respiratory rate 19 /min Zulema Orzech [facility] 10-03-2023 09:53-0400 Systolic blood pressure 146 mm[Hg] Zulema Orzech [facility] 08-09-2023 11:52-0400 Body height 163.83 cm [facility] 08-09-2023 11:52-0400 Body mass index (BMI) [Ratio] 41.8 kg/m2 [facility] 08-09-2023 11:52-0400 Body temperature 96.8 [degF] [facility] 08-09-2023 11:52-0400 Body weight 112.09 kg [facility] 08-09-2023 11:52-0400 Diastolic blood pressure 81 mm[Hg] [facility] 08-09-2023 11:52-0400 Heart rate 80 /min [facility] 08-09-2023 11:52-0400 Systolic blood pressure 114 mm[Hg] [facility] 05-31-2023 10:15-0500 Body height 163.83 cm Carrie Talbot Other [facility] 05-31-2023 10:15-0500 Body mass index (BMI) [Ratio] 42.89 kg/m2 Carrie Talbot Other [facility] [employer] Other 05-31-2023 10:15-0500 Body weight 115.12 kg Carrie Talbot Other [facility] 05-31-2023 10:15-0500 Diastolic blood pressure 83 mm[Hg] Carrie Talbot Other [facility] 05-31-2023 10:15-0500 Systolic blood pressure 124 mm[Hg] Carrie Talbot Other [facility] 04-20-2023 11:15-0500 Body height 163.83 cm Carrie Talbot Other [employer] Other 04-20-2023 11:15-0500 Body mass index (BMI) [Ratio] 42.58 kg/m2 Carrie Talbot Other [employer] Other 04-20-2023 11:15-0500 Body weight 114.31 kg Carrie Talbot Other [employer] Other 04-20-2023 11:15-0500 Diastolic blood pressure 88 mm[Hg] Carrie Talbot Other [employer] Other 04-20-2023 11:15-0500 Systolic blood pressure 138 mm[Hg] Carrie Talbot Other [employer] Other 02-21-2023 11:15-0400 Body height 163.83 cm Carrie Talbot Other [employer] Other 02-21-2023 11:15-0400 Body mass index (BMI) [Ratio] 41.91 kg/m2 Carrie Talbot Other [employer] Other 02-21-2023 11:15-0400 Body weight 112.49 kg Carrie Talbot Other [employer] Other 02-21-2023 11:15-0400 Diastolic blood pressure 86 mm[Hg] Carrie Talbot Other [employer] Other 02-21-2023 11:15-0400 Systolic blood pressure 130 mm[Hg] Carrie Talbot Other [employer] Other 12-02-2022 09:55-0400 Body height 162.56 cm Carrie Talbot Work Phone: [employer] 250 DO Work Phone: 12-02-2022 09:55-0400 Body mass index (BMI) [Ratio] 41.2 kg/m2 Carrie Talbot Work Phone: [employer] 250 DO Work Phone: 12-02-2022 09:55-0400 Body surface area Derived from formula 2.11 m2 Carrie Talbot Work Phone: [employer] 250 DO Work Phone: 12-02-2022 09:55-0400 Body weight 108.86 kg Carrie Talbot Work Phone: [employer] 250 DO Work Phone: 12-02-2022 09:55-0400 Diastolic blood pressure 62 mm[Hg] Carrie Talbot [facility] [employer] 250 DO Work Phone: 12-02-2022 09:55-0400 Heart rate 60 /min Carrie Talbot Work Phone: [facility] 250 DO Work Phone: 12-02-2022 09:55-0400 Systolic blood pressure 118 mm[Hg] Carrie Talbot Work Phone: [facility] 250 DO Work Phone: 08-11-2022 13:37-0400 Diastolic blood pressure 86 mm[Hg] Carrie Talbot Work Phone: [facility] 250 DO Work Phone: 08-11-2022 13:37-0400 Systolic blood pressure 137 mm[Hg] Carrie Talbot Work Phone: [facility] 250 DO Work Phone: 08-11-2022 13:26-0400 Heart rate 62 /min Carrie Tablot Work Phone: [facility] 250 DO Work Phone: 08-11-2022 13:24-0400 Diastolic blood pressure 88 mm[Hg] Carrie Talbot Work Phone: [facility] 250 DO Work Phone: 08-11-2022 13:24-0400 Systolic blood pressure 132 mm[Hg] Carrie Talbot Work Phone: [facility] 250 DO Work Phone: 08-11-2022 13:23-0400 Body height 162.56 cm Carrie Talbot Work Phone: [facility] 250 DO Work Phone: 08-11-2022 13:23-0400 Body mass index (BMI) [Ratio] 40.85 kg/m2 Carrie Talbot Work Phone: [facility] 250 DO Work Phone: 08-11-2022 13:23-0400 Body surface area Derived from formula 2.11 m2 Carrie Talbot Work Phone: [facility] 250 DO Work Phone: 08-11-2022 13:23-0400 Body weight 107.96 kg Carrie Talbot Work Phone: [facility] 250 DO Work Phone: 08-11-2022 13:23-0400 Diastolic blood pressure 90 mm[Hg] Carrie Talbot Work Phone: [facility] 250 DO Work Phone: 08-11-2022 13:23-0400 Systolic blood pressure 140 mm[Hg] Carrie Talbot Work Phone: [facility] 250 DO Work Phone: Encounters Encounter Date Encounter Type Care Provider Facility Start: 03-15-2024 End: 03-15-2024 Clinisync Result Encounter Nando Landon DO Work Phone: [facility] Unsolicited Start: 03-15-2024 End: 03-15-2024 Clinisync Result Encounter Nando Landon DO Work Phone: [facility] Unsolicited Start: 03-15-2024 End: 03-15-2024 ambulatory Nando Landon Facility:[facility] Start: 03-08-2024 End: 03-08-2024 Clinisync Result Encounter Nando Landon DO Work Phone: [facility] Unsolicited Start: 03-08-2024 End: 03-08-2024 Clinisync Result Encounter Nando Landon DO Work Phone: [facility] Unsolicited Start: 03-04-2024 End: 03-04-2024 Bamboo flowsheet Nando Landon DO Work Phone: [facility] Start: 03-04-2024 End: 03-08-2024 Bamboo flowsheet Nando Landon DO Work Phone: [facility] Start: 03-04-2024 End: 03-08-2024 Clinisync Result Encounter Nando Landon DO Work Phone: [facility] External Department Unsolicited Start: 03-04-2024 End: 03-04-2024 Patient encounter procedure Nando Landon DO Work Phone: [facility] Start: 03-04-2024 End: 03-04-2024 Periodic preventive med est patient 18-39 yrs Nando Landon DO Work Phone: [facility] Comment on above: Postmenopausal state ; Well woman exam with routine gynecological exam; Breast cancer screening by mammogram; Preoperative examination; Pelvic pain in female; Endometrial polyp Start: 03-04-2024 End: 03-04-2024 Preprocedural examination done Nando Landon DO Work Phone: [facility] Start: 03-04-2024 End: 03-04-2024 ambulatory NANDO LANDON Not Available Start: 02-14-2024 ambulatory Mikhail VENEGAS Facility :[facility] Start: 02-14-2024 End: 02-14-2024 Patient encounter procedure Mikhail VENEGAS [facility] Start: 02-05-2024 End: 02-05-2024 ambulatory NANDO LANDON Not Available Start: 01-30-2024 End: 01-30-2024 ambulatory Zulema X Orzech Facility: [facility] Start: 01-30-2024 End: 01-30-2024 Patient encounter procedure Zulema X Orzech [facility] Start: 01-19-2024 ambulatory Zulema Orzech Facility: [facility] Start: 01-18-2024 End: 01-18-2024 ambulatory [facility] Work Phone: Start: 01-18-2024 End: 01-18-2024 Patient encounter procedure [facility] Work Phone: Start: 01-09-2024 End: 01-09-2024 ambulatory Zulema X Orzech Facility:[facility] Start: 01-09-2024 End: 01-09-2024 Patient encounter procedure Zulema X Orzech [facility] Start: 01-08-2024 End: 01-08-2024 ambulatory NANDO LANDON Not Available Start: 12-06-2023 End: 12-06-2023 ambulatory NANDO LANDON Not Available Start: 11-07-2023 End: 11-07-2023 ambulatory Gemma Blanco Facility:[facility] Start: 11-07-2023 End: 11-07-2023 Patient encounter procedure Gemma Blanco [facility] Start: 11-03-2023 End: 11-03-2023 ambulatory [facility] Ambulatory Start: 11-03-2023 End: 11-03-2023 Office outpatient visit 25 minutes Bonny Meyer MD Work Phone: [facility] Comment on above: Palpitations (Primar y Dx); Essential hypertension; Shortness of breath; BMI 40.0-44.9, adult (Multi); Current smoker Start: 10-03-2023 End: 10-03-2023 ambulatory Zulema X Orzech Facility:[facility] Start: 10-03-2023 End: 10-03-2023 Patient encounter procedure Zulema X Orzech [facility] Start: 08-10-2023 ambulatory Zulema Orzech Facility: [facility] Start: 08-09-2023 End: 08-09-2023 Departed Referred MD Carrie Talbot Work Phone: [facility] Work Phone: Start: 08-09-2023 End: 08-09-2023 ambulatory Carrie Talbot [facility] Work Phone: Start: 08-09-2023 End: 08-09-2023 Patient encounter procedure [facility] Work Phone: Start: 08-03-2023 End: 08-03-2023 ambulatory [facility] Work Phone: Start: 08-03-2023 End: 08-03-2023 Patient encounter procedure [facility] Work Phone: Start: 05-31-2023 End: 05-31-2023 ambulatory Carrie Talbot Other [employer] Other Start: 05-31-2023 Office outpatient vi sit 15 minutes Carrie Talbot [facility] Start: 05-31-2023 End: 05-31-2023 Patient encounter procedure [facility] Work Phone: Start: 05-25-2023 End: 05-25-2023 ambulatory ZOLTAN Lee SANTIAGO Not Available Start: 04-24-2023 End: 04-24-2023 ambulatory Carrie Talbot Other [employer] Other Start: 04-24-2023 Telephone encounter Carrie Talbot [facility] Start: 04-20-2023 End: 04-20-2023 ambulatory Carrie Talbot Other [employer] Other Start: 04-20-2023 Office outpatient vi sit 15 minutes Carrie Talbot [facility] Start: 03-28-2023 (Televisit) Televisit Carrie Gong [facility] Start: 03-28-2023 End: 03-28-2023 ambulatory Carrie Talbot Other [employer] Other Start: 02-21-2023 End: 02-21-2023 ambulatory Carrie Talbot Other [employer] Other Start: 02-21-2023 Office outpatient vi sit 25 minutes Carrie Talbot [facility] Start: 12-02-2022 ambulatory MD CARRIE TALBOT Facility: Start: 12-02-2022 Office outpatient vi sit 15 minutes Carrie Talbot Work Phone: [facility] 250 DO Work Phone: Start: 08-18-2022 End: 08-18-2022 ambulatory Carrie Talbot Other [employer] Other Start: 08-18-2022 Telephone encounter Carrie Talbot [facility] Start: 08-11-[address] Bonny Meyer Facility: Start: 08-11-2022 Office consultation new/estab patient 60 min Carrie Talbot [facility] Work Phone: Start: 08-05-2022 End: 08-05-2022 ambulatory Carrie Talbot Other [employer] Other Start: 08-05-2022 Nursing evaluation o f patient and report Carrie Talbot [facility] Start: 07-04-2022 End: 07-04-2022 ambulatory Carrie Talbot Other [employer] Other Start: 07-04-2022 Telephone encounter Carrie Talbot [facility] Start: 06-27-2022 End: 06-28-[address] CARRIE TALBOT Facility: Start: 06-22-2022 End: 06-22-2022 ambulatory Carrie Talbot Other [employer] Other Start: 06-22-2022 Telephone encounter Carrie Talbot [facility] Start: 06-14-2022 End: 06-14-2022 ambulatory Carrie Talbot Other [employer] Other Start: 06-14-2022 Telephone encounter Carrie Talbot [facility] Start: 06-12-2022 End: 06-12-2022 ambulatory ELY SANTOS [...] Date Procedure Procedure Detail Performing Clinician Start: 03-15-2024 ALL CBC WITH AUTO DIFF Nando Landon DO Work Phone: Start: 03-08-2024 ALL BASIC METABOLIC PANEL Nando Landon DO Work Phone: Start: 03-04-2024 IGP,APTIMA HPV,AGE GDLN Nando Landon DO Work Phone: Start: 11-07-2023 Cystoscopy Zulema Kristy ech Cholecystectomy Carrie E Bra un Work Phone: Cholecystectomy Zulema Orzec h Colonoscopy Mikhail NILL Hysteroscopy Zulema Orzech Ligation of varicose vein Otis telmayosvany Johnson Talbot Work Phone: Stripping of vein Zulema Orz ech Total colonoscopy Carrie Mcfarland raun Work Phone: Comment on above: over 10 years ago; Plan of Treatment Date Care Activity Detail Author Start: 10-28-2024 End: 10-28-2024 Patient encounter procedure 10/28/2024 10:10 AM EDT Office Visit [facility] [address] [place] [id number] Bonny Meyer MD [address] [place] [address] [facility] Start: 04-09-2024 End: 04-09-2024 Patient encounter procedure 04/09/2024 9:30 AM EST Office Visit [facility] [address] [place] [address] Nando Navarrete DO [address] [place] [address] [facility] Start: 03-04-2024 End: 03-04-2025 DXA Skeletal system Views for bone density DEXA bone density Imaging Routine Postmenopausal state Expected: 03/04/2024 (Approximate), Expires: 03/04/2025 [facility] Comment on above: Expected: 03/04/2024 (Approximate), Expires: 03/04/2025 Start: 03-04-2024 End: 05-04-2025 MG Breast - bilateral Screening Bilateral screening mammogram Imaging Routine Breast cancer screening by mammogram Expected: 03/04/2024, Expires: 05/04/2025 [facility] Work Phone: Comment on above: Expected: 03/04/2024 , Expires: 05/04/2025 Start: 03-04-2024 End: 03-04-2024 Patient encounter procedure 03/04/2024 10:00 AM EDT Office Visit [facility] [address] [place] [address] Nando Navarrete, DO [address] [place] [address] Arrived [facility] Comment on above: Arrived Start: 01-21-2024 Influenza vaccination Influenz a Vaccine (Season Ended) [facility] Start: 01-18-2024 Patient referral [facility] Work Phone: Start: 08-09-2023 Bacteria identified in Urine by Culture [facility] Start: 08-09-2023 Patient referral [facility] Work Phone: Start: 01-20-2023 COVID-19 Vaccine ( season) COVID-19 Vaccine ( season) [facility] Start: 12-02-2022 FUV, Provider: Bonny Meyer, Status: Pen, Time: 9:40 AM FUV, Provider: Bonny Meyer, Status: Pen, Time: 9:40 AM [place] [address] DO Work Phone: Start: 2022 Zoster Vaccines (1 o f 2) Zoster Vaccines (1 of 2) [facility] Start: 2012 Screening for malign ant neoplasm of breast Mammogram [facility] Start: 1994 DTaP/Tdap/Td Vaccine s (1 - Tdap) DTaP/Tdap/Td Vaccines (1 - Tdap) [facility] Start: 1993 Screening for malign ant neoplasm of cervix [facility] Start: 1991 Hepatitis B Vaccines (1 of 3 - 19+ 3-dose series) Hepatitis B Vaccines (1 of 3 - 19+ 3-dose series) [facility] Start: 1990 Diabetes mellitus screening Diabetes Screening [facility] Start: 1990 Hepatitis C screening Hepatitis C Sc reening [facility] Start: 1978 Pneumococcal Vaccine : Pediatrics (0 to 5 Years) and At-Risk Patients (6 to 64 Years) (1 of 2 - PCV) Pneumococcal Vaccine: Pediatrics (0 to 5 Years) and At-Risk Patients (6 to 64 Years) (1 of 2 - PCV) [facility] Start: 1973 MMR Vaccines (1 of 1 - Standard series) MMR Vaccines (1 of 1 - Standard series) [facility] Start: 1972 HIV screening HIV Screening [facility] Start: 1972 Lipid panel Lipid Panel [facility] Start: 1972 Screening for malign ant neoplasm of colon [facility] Start: 1972 Yearly Adult Physical Yearly Adult P [facility] Patient referral [facility] Work Phone: THIN PREP TIS PAP AN D HR HPV DNA THIN PREP TIS PAP AND HR HPV DNA Pathology and Cytology Routine Well woman exam with routine gynecological exam Ordered: 03/04/2024 [facility] Comment on above: Ordered: 03/04/2024 Payers Date Payer Category Payer Private Health Insurance [facility] MEDICA[facility] [id number] 2021 Unknown 2021 Unknown [id number] 1972 Unknown [id number] 2.16.840.1.243120.3.579.2. 593 1972 Unknown [id number] 2.16.840.1.682782.3.579.2. 593 1972 Unknown [id number] 2.16.840.1.173512.3.579.2. 593 1972 Unknown [id number] 2.16.840.1.762713.3.579.2. 593 1972 Unknown [id number] 2.16.840.1.768600.3.579.2. 593 1972 Unknown [id number] 2.16.840.1.463129.3.579.2. 593 1972 Unknown [id number] 2.16.840.1.498654.3.579.2. 593 1972 Unknown [id number] 2.16.840.1.335008.3.579.2. 593 1972 Unknown [id number] 2.16.840.1.408834.3.579.2. 593 1972 Unknown [id number] 2.16.840.1.736706.3.579.2. 593 1972 Unknown [id number] 2.16.840.1.066885.3.579.2. 593 1972 Unknown [id number] 2.16.840.1.426617.3.579.2. 593 1972 Unknown [id number] 2.16.840.1.391273.3.579.2. 593 1972 Unknown [id number] 2.16.840.1.671228.3.579.2. 593 1972 Unknown [id number] 2.16.840.1.674238.3.579.2. 356 1972 Unknown [id number] 2.16.840.1.374484.3.579.2. 356 1972 Unknown [id number] 2.16.840.1.893840.3.579.2. 1244 1972 Unknown [id number] 2.16.840.1.818790.3.579.2. 727 1972 Unknown [id number] 2.16.840.1.281437.3.579.2. 727 1972 Unknown [id number] 2.16.840.1.838158.3.579.2. 727 1972 Unknown [id number] 2.16.840.1.671420.3.579.2. 727 1972 Unknown [id number] 2.16.840.1.820825.3.579.2. 727 1972 Unknown [id number] 2.16.840.1.375272.3.579.2. 1259 1972 Unknown [id number] 2.16.840.1.787439.3.579.2. 1259 1972 Unknown [id number] 2.16.840.1.679904.3.579.2. 1259 1972 Unknown [id number] 2.16.840.1.066620.3.579.2. 1259 1972 Unknown [id number] 2.16.840.1.147837.3.579.2. 1259 1972 Unknown [id number] 2.16.840.1.511244.3.579.2. 1259 1959 Unknown [id number] Social History Date Type Detail Facility Unknown if ever smoked [employer] Other Start: 08-08-2023 Sex Assigned At F [facility] Start: 08-08-2023 Caffeine use Caffeine use [facility] [employer] DO Work Phone: Comment on above: pop all day; 5-10 cigarettes jessi y; Start: 1970 Sex Assigned At Female F [facility] [place] [facility] Start: 10-03-2023 End: 01-30-2024 Tobacco smoking status Heavy tobacco smoker (finding) [facility] Start: 11-03-2023 Tobacco smoking stat us NHIS Smokes tobacco daily [facility] Work Phone: History of tobacco use Cigarette Smoker [facility] Work Phone: Start: 11-03-2023 Tobacco use and exposure User of smokeless tobacco [facility] Work Phone: Start: 11-03-2023 Alcoholic beverage intake Lifetime non-drinker (finding) [facility] Work Phone: Start: 11-03-2023 Tobacco Comment vape [facility] Work Phone: Start: 1970 Sex assigned at Not on file [facility] Work Phone: Start: 10-24-2023 End: 11-03-2023 Exposure to SARS-CoV-2 (event) Not sure [facility] Start: 02-14-2024 Tobacco smoking status Light t obacco smoker (finding) [facility] Start: 05-25-2023 Tobacco smoking stat us NHIS Tobacco smoking consumption unknown [facility] Functional Status Date Assessment Result Facility 02-14-2024 Functional Status N/A [facility] 10-03-2023 Functional Status N/A [facility] Clinical Notes 09-30-2021 to 03-04-2024 Peace Roblero [...] on 03/29/[address] Navarrete at [facility]. MEDICATIONS Current Outpatient Medications Medication Instructions famotidine [...] nursing note reviewed. Exam conducted with a splicing machine operator present. Vitals: Estimated body mass index is [...] reviewed, and patient is to proceed to [facility] OR. Follow Up: Patient is to follow up between 1-2 weeks post operative to assess proper healing and recovery from procedure. Documented by She Reyes LPN on behalf of: Nando Navarrete DO documented in this encounter [facility] 01-30-2024 Hospital Discharge instructions Patient Education [...] hormones. Follow these instructions at home: Take wsji-pve-sswudnx and prescription medicines only as told by [...] any of the signs or symptoms of Palmyra's syndrome or primary aldosteronism. You need help [...] provider. Document Revised: 01/05/2021 Document Reviewed: 01/05/2021 [employer] Patient Education 2023 [employer]. 01/30/2024 10:50:38 Steps to Quit Smoking Steps [...] require a prescription. You can also purchase bfzv-bmn-jfqhewx medicines. Medicines may have nicotine in them [...] and encouragement. Call telephone quitlines, such as 2-675-WAWJ-NOW, reach out to support groups, or work [...] provider. Document Revised: 04/29/2022 Document Reviewed: 04/29/2022 [employer] Patient Education 2023 [employer]. 01/30/2024 10:50:36 Overactive Bladder, Adult Overactive Bladder, [...] your health care provider. General instructions Take qoxo-hdn-vqeiwxd and prescription medicines only as told by [...] provider. Document Revised: 01/25/2021 Document Reviewed: 01/25/2021 [employer] Patient Education 2023 [employer]. 01/30/2024 10:50:34 Hematuria, Adult Hematuria, Adult Hematuria [...] Follow these instructions at home: Medicines Take imwi-oau-cdaqqtb and prescription medicines only as told by [...] or the blood stops without treatment. Take yccp-hjl-sewgkwo and prescription medicines only as told by your health care provider. Drink enough fluid to keep your urine pale yellow. This information is not intended to replace advice given to you by your health care provider. Make sure you discuss any questions you have with your health care provider. Document Revised: 01/06/2021 Document Reviewed: 01/06/2021 [employer] Patient Education 2023 [employer]. 01/30/2024 10:50:34 Dietary Guidelines to Help Prevent [...] include: ?8 oz (237 mL) of milk, mmmyngr-ogaxydwtxwgi-zsjad milk, and calcium-fortifiedfruit juice. Calcium-fortified means that [...] ?Spinach (cooked), rhubarb, beets, sweet potatoes, and [place] chard. ?Peanuts. ?Potato chips, citizen of [place] fries, and baked potatoes with skin on. ?Nuts and nut products. ?Chocolate. If you regularly take a diuretic medicine, make sure to eat at least 1 or 2 servings of fruits or vegetables that are high in potassium each day. These include: ?Avocado. ?Banana. ?Dunning, prune, carrot, or tomato juice. ?Baked potato. [...] magnesium, fish oil, or vitamin B6. Take rflh-aqt-sgtgagp and prescription medicines only as told by [...] Casseroles. Pizza. Lasagna. Frozen meals. Potato chips. Kiswahili fries. The items listed above may not [...] provider. Document Revised: 08/18/2022 Document Reviewed: 08/18/2022 [employer] Patient Education 2023 [employer]. Follow Up Care 01/08/2024 16:41:10 With:JOHNNA Joya APRN, GYPSY Rodriguez, URL Address: When: Unknown Comments:3-4 mos [facility] 01-30-2024 Note Patient Education Nephrology Dietary [...] ? 8 oz (237 mL) of milk, rjnuvgc-crlculqqwyqi-aipmx milk, and calcium-fortifiedfruit juice. Calcium-fortified means that [...] Spinach (cooked), rhubarb, beets, sweet potatoes, and [place] chard. ? Peanuts. ? Potato chips, citizen of [place] fries, and baked potatoes with skin on. ? Nuts and nut products. ? Chocolate. ? If you regularly take a diuretic medicine, make sure to eat at least 1 or 2 servings of fruits or vegetables that are high in potassium each day. These include: ? Avocado. ? Banana. ? Dunning, prune, carrot, or tomato juice. ? Baked [...] fish oil, or vitamin B6. ? Take pept-jxl-edrudvz and prescription medicines only as told by your health care provider. These include suppleme (more content not included)... [facility] 11-07-2023 Evaluation + Plan note Extrac galileo from: Title: Clinic HOPD Note Author:Francis HERNANDEZ Gemma Rosa Jean Date:11/07/23 Impression and Plan Assessment and Plan: Diagnosis: Adrenal adenoma (WMT94-HT D35.00, Working, Medical), Gross hematuria (PTD41-KV R31.0, Discharge, Medical), OAB (overactive bladder) (UDE57-VZ N32.81, Discharge, Medical), TEAGAN (stress urinary incontinence, female) (OLL63-UC N39.3, Working, Medical). 53 year old female [...] Date:01/09/2024 09:30:00 AM Scheduled Provider:JOHNNA Joya APRN, Zulema Lema Location:[facility] Appointment Type:URO Office Visit Diagnostic Tests Pending * Urine Cytology ([facility]) 11/07/23 [facility]06-18-2024 Hospital Discharge instructions Patient Education 11/07/2023 [...] With:Gemma Blanco Address:Unknown When: Unknown [facility]06-18-2024 Note [id number] [facility] 11-07-2023 NoteCystoscopy ? Voiding after the procedure: [...] if you have a fever over 100 degrees.[facility] 11-03-2023 Instructions* Patient Instructions* Sharda Fontaine [...] time of your visit. documented in this [facility] Work Phone: 1(605) 916-275805-17-2024 NoteChief Complaint referral HPI Staff Referral for dysuria, left flank pain and hematuria by Dr. Talbot. Pt was seen in [facility] ED 08/11/23 for urinary frequency and [...] with voice recognition artificial intelligence software, specifically [employer] and or [employer]. Substitutions may have occurred due to the [...] work, dexamethasone testing. 3. Dysuria (R30.0: Dysuria) [facility] ER 08/11/2023-urinary frequency, low back pain [...] fluid intake so jah (more content not included)...[facility]Result Comment: Electronically Signed By: JOHNNA Joya APRN, Zulema Lema\.br\Date and Time Signed: 10/06/23 12:54 [id number] Evaluation + Plan note Diagnostic Tests Pending * Cortisol 10/03/23 * Lab Miscellaneous-LC 10/03/23 * Lab Miscellaneous-LC 10/03/23 [facility] 01-10-2024 Evaluation note* Encounter Date Diagnosis Assessment Notes Treatment Notes Treatment Clinical Notes May, Pain, joint, knee, left (ICD-10 - M25.562) Pt declines PT at this time. Will attempt MRI. She declines Ortho referral at this time as well. MRI order sent to [facility]. work note given for restrictions as she is unable to climb a lot of stairs due to pain. May, Uncontrolled hypertension (ICD-10 - I10) Reviewed labs w pt. No hypokalemia or other electrolyte abnormalities noted in Apr. [employer] [facility] 12-04-2023 Evaluation note* Encounter Date Diagnosis Assessment Notes Treatment Notes Treatment Clinical Notes Apr, Essential hypertension (ICD-10 - I10) [facility] 11-30-2023 Evaluation note* Encounter Date Diagnosis Assessment Notes Treatment Notes Treatment Clinical Notes Mar, Radicular syndrome of left leg (ICD-10 - M54.10) Agrees to imaging to r/o DDD or lumbar fracture. Mar, Leg pain, left (ICD-10 - M79.605) Discussed concern for DVT. US scheduled for today. [employer] [facility] 11-07-2023 Evaluation note* Encounter Date Diagnosis [...] verbalized understanding and agreement with treatment plan. [facility] 10-03-2023 Evaluation note* Encounter Date Diagnosis [...] Advised she limit NSAIDs and added omeprazole [employer] 03-30-2023 Evaluation note* Encounter Date Diagnosis Assessment Notes Treatment Notes Treatment Clinical Notes Jul, Uncontrolled hypertension (ICD-10 - I10) [facility] 03-17-2023 Evaluation note* Encounter Date Diagnosis Assessment Notes Treatment Notes Treatment Clinical Notes Jul, Dysuria (ICD-10 - R30.0) [facility] 12-16-2022 NotePROCEDURE: XR ANKLE LT MIN [...] Electronically authenticated by: VLADIMIR PALACIOS Date: 2022-05-06 07:13[facility]12-16-2022 NotePROCEDURE: XR ANKLE LT MIN 3 [...] Electronically authenticated by: VLADIMIR PALACIOS Date: 2022-05-06 07:13[facility]05-12-2022 NotePROCEDURE: XR ELBOW LT MIN 3 VIEWS HISTORY: Pain of left elbow joint , acute; limited range of motion COMPARISON: None. FINDINGS: BONES:No fracture, acute abnormality, or significant arthropathy. SOFT TISSUES:No visible soft tissue swelling. EFFUSION:None visible. OTHER: Negative. IMPRESSION: 1. Normal examination. Electronically authenticated by: VLADIMIR PALACIOS Date: 2021-09-30 16:50[facility] Narrative - ReportedFELY MELÉNDEZ is being seen for a consultation for blood pressure issues.[facility] [address] DO Work Phone: Evaluation + Plan note Future Appointments Appointment Date:01/30/2024 09:30:00 AM Scheduled Provider:JOHNNA Joya APRN, [place] X Location:[facility] Appointment Type:URO Office Visit [facility] evaluation + Plan note Future Appointments Appointment Date:02/14/2024 03:40:00 PM Scheduled Provider:Mikhail VENEGAS MD Location:[facility] Appointment Type:[place] [id number] [facility] evaldimpki noteNo InformationNort Ivaldi Other evaluation noteNo assessment information available [facility] Work Phone: evaluation note* Diagnosis Onset Date Resolution Status Dysuria acute Hematuria acute Left flank pain acute [facility] Work Phone: evaluwccxa note* Diagnosis Palpitations- Primary Essential hypertension Unspecified essential hypertension Shortness of breath BMI 40.0-44.9, adult (Multi) Current smoker documented in this encounter [facility] Work Phone: Evaluawrst note* Diagnosis Onset Date Resolution Status Rectal bleeding acute [facility] Work Phone: evaluation note* Diagnosis Postmenopausal state Asymptomatic postmenopausal status [...] OF ADHESIONS 09/2015 Hospitalization History SEE SURGICAL [facility] [employer] Other History of Present illness Narrative* Patient [...] to retrieve her recent Holter monitor from [place] * 3. I suggested a trial of [...] diet * 6. Follow-up in 4 months -[facility] [address] DO Work Phone: History of Present [...] diet * 5. Follow-up in 4 months [facility] [address] DO Work Phone: Hospital course Narrative No data available for this section [facility] Hospital Discharge instructionsAmbulatory Orders* Referral to Urology Time Frame: 08/09/23, Location: None [facility] Work Phone: Hospital Discharge instructions No data available for this section [facility] Hospital Discharge instructionsAmbulatory Orders* Referral to General Surgery Time Frame: 01/18/24, Location: None [facility] Work Phone: Progress note No data available for this section [facility] reason for referral (narrative)* Consultation (Routine) - Authorized Specialty Diagnoses / Procedures Referred By Niko t Referred To Contact Cardiology Diagnoses Essential hypertension Procedures Follow Up In Cardiology Bonny Meyer MD [address] [facility] [address], [address] [address] Bonny Meyer MD [address] [facility] [address], [address] [address] Referral ID Status Reason Start Date Expiration Date V isits Requested Visits Authorized [id number] Authorized 11/03/2023 11/02/2024 1 1 T [facility] Work Phone: Summary Purpose Family History No [...] ure of right hand (M72.0) Referral Organization [facility] Referring Provider First Name Carrie Referring Provider Last Name Ronaldo Referring Provider Specialty Family [facility] cine Referred Organization [facility] Referred Provider Deisi Branch Referred Address [address] [place], [place],[address] Referred Provider Specialty Orthopedic S urgery Referral [...] and content) DATE CREATED AUTHOR 06/30/2022 [facility] DATE CREATED AUTHOR AUTHOR'S ORGANIZ ATION 12/03/[address] [facility] DATE CREATED AUTHOR AUTHOR'S ORGANIZ ATION 12/03/2022 [employer] DATE CREATED AUTHOR AUTHOR'S ORGANIZ ATION 11/04/2023 [facility] DATE CREATED AUTHOR AUTHOR'S ORGANIZ ATION 01/31/2024 Millry Pondera [facility] DATE CREATED AUTHOR AUTHOR'S ORGANIZ ATION 02/13/2024 [facility] DATE CREATED AUTHOR AUTHOR'S ORGANIZ ATION 03/05/2024 [facility] EPIC DATE CREATED AUTHOR AUTHOR'S ORGANIZ ATION 03/17/2024 [facility] REASON FOR VISIT (unrecogniz ed section and [...] August 09, 2023 End: August 09, 2023 Senior Environmental Consultant Relationship Specialty Start Date End Date Carrie Talbot MD [address] [facility] [place], [place] [id number] PCP - General 08/11/22 Team Status: Inactive Member Role Status Dates Carrie Talbot MD Primary Care Provide r, Attending Provider Active Start: January 18, 2024 End: January 18, 2024 Senior Environmental Consultant Relationship Specialty Start Date End Date Carrie Talbot MD [address] [facility] [place] [id number] PCP - General Family Medicine 05/25/23 Senior Environmental Consultant Relationship Specialty Start Date End Date Carrie Tablot MD [address] [facility] [place] [address] PCP - General Family Medicine 05/25/23 Senior Environmental Consultant Relationship Specialty Start Date End Date Carrie Talbot MD [address] [facility] [place] [address] PCP - General Family Medicine 05/25/23 Goals [...] BE BASED ON THE PRIMARY CLINICAL RECORDS. [employer] [facility]. provides no warranty or guarantee of the accuracy or completeness of information in this document.
[2024-03-20 07:44] VITALS: BP 159/110; PULSE 95; TEMP 36.2; O2SAT 98; BMI 42.0
[2024-03-20] MEDS: 0.9 % SODIUM CHLORIDE 500 ML 50 ML IV (08:00)
[2024-03-20 09:03] VITALS: BP 142/101; PULSE 73; O2SAT 97
[2024-03-20 09:18] VITALS: BP 147/101; PULSE 61; O2SAT 95
[2024-03-20 09:40] VITALS: BP 154/101; PULSE 57; O2SAT 96
== END 2024-03-20 09:40 | disposition home or self-care (01) ==
PROVIDERS: PCP Family Medicine; Visit Provider Surgery
PROC: (CPT 00811; principal; 2024-03-20 08:30)
DX: K62.5 Hemorrhage of anus and rectum (principal); R10.9 Unspecified abdominal pain; K57.30 Diverticulosis of large intestine without perforation or abscess without bleeding; I25.10 Atherosclerotic heart disease of native coronary artery without angina pectoris; I10 Essential (primary) hypertension; K21.9 Gastro-esophageal reflux disease without esophagitis; Z90.49 Acquired absence of other specified parts of digestive tract; G47.33 Obstructive sleep apnea (adult) (pediatric); F17.290 Nicotine dependence, other tobacco product, uncomplicated; M79.7 Fibromyalgia; Z87.442 Personal history of urinary calculi; Z86.718 Personal history of other venous thrombosis and embolism
CPT/HCPCS: 00811; 45378; J2250; J2704

== ENCOUNTER 2024-06-12 11:39 | Emergency (ER) | payer OTHER, SELFPAY ==
[2024-06-12] VITALS (7 sets, daily range): BP systolic 159–180; BP diastolic 90–119; PULSE 96; TEMP 37; O2SAT 99; BMI 42.9
--- OUTSIDE RECORDS SUMMARY | 2024-06-12 11:58 | XMS_ITS | CCD ---
Author Organization [facility] Care Team Providers Care Slimer Name Role Phone SHAUNA, DR JUAN CARLOS [...] Unavailable DIAB, ELY Admitting Unavailable ANTIONE, DR CARRIE Johnson Primary Care Unavailable ZEINA, DR GERONIMO Consulting Unavailable HAY, DR GERONIMO Attending Unavailable HAY, DR GERONIMO Admitting Unavailable TALBOT, DR CARRIE Johnson Primary Care Unavailable POPPY GREEN Consulting Unavailable Carrie Talbot Unavailable Carrie Talbot Unavailable Unavailable Unavailable Mitch, Dr. Bethea Referring Unavaila ble Mitch, Dr. Bethea Attending UnavailMD CARRIE Cardenas Primary Care Unava MD CARRIE Hurtado Primary Care Unava ilable Mitch, Dr. Bethea Referring Unavaila kendrick Mckenzie, Dr. Bethea Attending Unavaila MD Carrie Jules Attending Provider CARRIE TALBOT Primary Care Physician Carrie Talbot MD Primary Care Provider BONNY MCKENZIE Attending Unavailable CARRIE TALBOT Primary Care Unavailable Carrie Talbot MD Primary Care Provider Niecy Navarretey Attending Unavailable Landon, Nando Admitting Unavailable Carrie Talbot Attending Unavailable Carrie Talbot Admitting Unavailable HEMZOLTAN FUENTES M Attending Unavailable HEMZOLTAN FUENTES Referring Unavailable LANDON, NANDO Attending Unavailable LANDONNIECYY Attending Unavailable LANDONNIECYY Attending Unavailable LANDON, NANDO Attending Unavailable HAILEE GALEANA Attending Unavailable Orzech, Zulema X Attending Unavailable CARRIE TALBOT Referring Unavailable NILLMikhail Attending Unavailable NILLMikhail Attending Unavailable Orzech, Zulema X Attending Unavailable Orzech, Zulema X Attending Unavailable CARRIE TALBOT Referring Unavailable Gemma Blanco Attending Unavailable Gemma Blanco Referring Unavailable Gemma Blanco Admitting Unavailable LandonNando yan DO Attending Provider Allergies Allergy Classification Reported Allergen(s) Allergy Type Date of Onset Reaction(s) Facility Cephalosporins (antibiotic) (1 source) cefdinir Drug Allergy 08-08-19 24 Unknown [facility] Opioid Agonists (1 source) Codeine Drug Allergy 05-25-19 Hives, Unknown [facility] Work Phone: Quinolones (antibiotic) (1 source) Ciprofloxacin Drug Allergy 11-03-19 Other [facility] (15 sources) Cefuroxime Drug Allergy 05-25-19 24 Unknown [facility] Healthcare (20 sources) Codeine; Translations: [CODEINE] Drug Allergy 05-25-19 Weal (disorder), Unknown, [facility] (15 sources) Pseudoephedrine Drug Allergy 05-25-19 Unknown [facility] Other (2 sources) cefdinir; Translations: [cefdinir] Drug Allergy 08-08-19 Other [place] [id number] Repository (6 sources) Ceftin *CEPHALOSPORINS* Propensity to adverse reactions 02-12-20 13 [facility] Other (6 sources) Pseudoephedrine HCl *NASAL AGENTS - SYSTEMIC AND T Propensity to adverse reactions 02-12-20 13 [facility] Other (5 sources) Cephalosporins (Antibiotic) Allergy to substance 05-31-19 [facility] Comment on above: Onset Date: 02/12/20 13 (5 sources) Pseudoephedrine HCl *NASAL AGE Allergy to substance 05-31-19 [facility] Comment on above: Free Text Allergy: P seudoephedrine HCl *NASAL AGENTS - SYSTEMIC AND T; Onset Date: 02/11/2013 (7 sources) Acetaminophen / Dextromethorphan / Doxylamine / Pseudoephedrine; Translations: [APAP/dextromethorp dwyer/doxylamine/PSE] Drug Allergy Unknown (qualifier value) [facility] (18 sources) Ciprofloxacin; Translations: [ciprofloxacin] Drug Allergy 11-03-19 Unknown (qualifier value), Weal (disorder), Unknown [facility] (10 sources) cefdinir Drug Allergy 08-08-19 Unknown [facility] Healthcare (2 sources) Acetaminophen; Translations: [acetaminophen] Drug Allergy [facility] Repository Medications Current Medications Medication Drug Class(es) Dates Sig (Normalized) Sig (Original) amoxicillin 875 mg / clavulanate 125 mg oral tablet (5 sources) Penicillin-class Antibacterial take 1 tablet by mouth every twelve hours aspirin 81 mg delayed release oral tablet (11 sources) Platelet Aggregation Inhibitor, Nonsteroidal Anti-inflammatory Drug [...] Status: Ordered famotidine 20 mg oral tablet (17 sources) Histamine-2 Receptor Antagonist Start: 10-03-2023 take 1 tablet by mouth once daily before mealtime Famotidine (Pepcid Ac) 20 mg tablet Active 20 MG PO Daily January 17, 2024 11:00pm take 2 tablets by mouth once julio [...] tablet by mouth once daily Metoprolol Succinate 25 mg tablet extended release 24 hr Active 1 TAB PO Daily August 08, 2023 11:00pm [employer] tablet once a day; Note: Source Status: Taking; Provider: Antione Palencia ( ) End: 02-05-2024 take 1 tablet by mouth twice daily metoprolol tartrate (Lopressor) 50 MG tablet Take 1 tablet twice a day by oral route for 30 days. 02/05/2024 Discontinued prednisoLONE (1 source) Corticosteroid prednisoLONE Act javier predniSONE 20 mg oral tablet (2 sources) Start: take 2 tablets by mouth every twenty-four hours predniSONE 20 MG 2 tablets Orally Once a day for 5 days Feb, Active spironolactone 25 mg oral tablet (20 sources) Aldosterone Antagonist Start: End: take 1 tablet by mouth once daily Spironolactone 25 mg tablet Active 25 MG PO Daily August 08, 2023 11:00pm FreeTextSig: TAKE ONE TABLET BY MOUTH DAILY; Note: Source Status: Taking; Refills: 2; Qty: 90 Each; Provider: Antione Palencia ( ) tiZANidine 4 mg oral capsule (2 sources) Central alpha-2 Adrenergic Agonist take 1 capsule by mouth once daily at bedtime as needed tiZANidine HCl 4 MG 1 capsule as needed Orally qhs prn for 15 days Active valsartan 40 mg oral tablet (15 sources) Angiotensin 2 Receptor Josefina Start: take 1 tablet by mouth twice daily valsartan 40 mg Tab 40 mg = 1 tab(s), Oral, BID, Refills(s) 0 Start Date: 02/01/24 Status: Ordered Start: 11-03-2023 End: 11-02-2024 take 1 tablet by mouth in the morning valsartan (Diovan) 160 MG tablet Take 160 mg by mouth in the morning. 11/03/2023 11/02/2024 Active Completed/Discontinued Medications Medication Drug Class(es) Dates Sig (Normalized) Sig (Original) amLODIPine 10 mg oral tablet (11 sources) Dihydropyridine Calcium Channel Josefina Start: 06-17-2022 End: 02-05-2024 take 1 tablet by mouth once daily amLODIPine (Norvasc) 10 MG tablet Take 10 mg by mouth Daily 02/18/2023 02/05/2024 Discontinued losartan potassium 50 mg oral tablet (20 sources) Angiotensin 2 Receptor Josefina Start: 08-14-2023 End: 01-18-2024 take 1 tablet by mouth once daily Losartan 50 mg tablet Discontinued 0 .ROUTE .COMPLEX August 14, 2023 12:25pm January 18, 2024 10:19am TAKE ONE TABLET BY MOUTH ONCE DAILY 30 Start: 07-15-2023 End: 11-03-2023 take 1 tablet by mouth once daily Losartan 50 mg tablet Discontinued 50 MG PO Daily August 08, 2023 11:00pm August 14, 2023 12:25pm FreeTextSig: TAKE ONE TABLET BY MOUTH ONCE DAILY; Note: Source Status: Taking; Refills: 3; Qty: 30 Each; Provider: Antione Palencia ( ) Start: 06-17-2022 take 1 tablet by aida th once daily Losartan Potassium 50 MG Oral Tablet TAKE ONE TABLET BY MOUTH ONCE DAILY Quantity: 30 Refills: 0 Ordered: 18-Jul-2022 DO Start : 17-Jun-2022 Active 24 hr mirabegron 50 mg extended release oral tablet (3 sources) beta3-Adrenergic Agonist Start: 11-07-2023 End: 02-05-2024 take 1 tablet by mouth once daily Myrbetriq 50 MG 24 hr tablet Take 50 mg by mouth Daily 11/07/2023 02/05/2024 Discontinued omeprazole 40 mg delayed release oral capsule (11 sources) Proton Pump Inhibitor Start: 02-21-2023 End: 06-11-2024 take 1 capsule by mouth once daily Omeprazole 40 mg capsule,delayed release(DR/EC) Discontinued 1 CAP PO Daily August 08, 2023 11:00pm June 11, 2024 10:59am FreeTextSi capsule 30 minutes before morning meal Orally Once a day; Note: Source Status: Taking; Refills: 3; Provider: Antione Johnson sulfamethoxazole 800 mg / trimethoprim 160 mg oral tablet (4 sources) Dihydrofolate Reductase Inhibitor Antibacterial, Sulfonamide Antimicrobial Start: 08-03-2023 End: 01-18-2024 take 1 tablet by mouth twice daily Sulfamethoxazole -Trimethoprim 800-160 mg tablet Discontinued 1 TAB PO Twice daily August 02, 2023 11:00pm January 18, 2024 10:19am Problems Active Problems Problem Classification Problem Date [...] Coronary arteriosclerosis; Translations: [Atherosclerotic heart disease of [place] coronary artery without angina pectoris] 09-28-2023 Chronic Diabetes mellitus without complication (12 sources) Other abnormal glucose; Translations: [Hyperglycemia] Onset: 2 Episodic Esophageal disorders (12 sources) Gastroesophageal reflux disease without esophagitis; Translations: [Gastro-esophageal reflux disease without esophagitis] Chronic Essential hypertension (20 sources) Essential (primary) hypertension; Translations: [Hypertensive disorder] Onset: 3 Chronic Gastrointestinal hemorrhage (5 sources) Rectal hemorrhage; Translations: [Hemorrhage of anus [...] 2 Chronic Other aftercare (1 source) Other usp (current) drug therapy; Translations: [OTH FDC CURRENT DRUG THERAPY] Onset: 3 Episodic Other aftercare (2 sources) Postoperative visit; Translations: [Encounter for other specified surgical aftercare] 03-21-2024 Episodic Other and unspecified benign neoplasm (1 [...] cervix 01-30-2024 Episodic Other female genital disorders (10 sources) Lump of cervix; Translations: [Other specified [...] (adult) (pediatric)] 09-28-2023 Chronic Residual codes; unclassified (12 sources) Postmenopausal state; Translations: [Asymptomatic menopausal state] [...] Test Name Value Interpretation Reference Range Facility Reminderson 04-12-2024 Reminders Reminders From: Yvette Hilliard To: EU - Administrative; Sent: 01/30/2024 10:26:31 EDT Show up: 03/22/2024 10:26:00 EDT Subject: Ambulatory Reminder Due Date/Time: 05/31/2024 10:26:00 EST Reminder/Recall Patient needs scheduled with AO for a 4M f/u, due back in May of 2024 Called pt to schedule May 2024 f/up. Patient reports I don't really have the problems anymore because Dr Healy did surgery and removed the adrenal masses. I told her to call if/when needed. Does patient need tracked or ok as PRN? From: Catherine Gordon ([facility] - Administrative) To: JOHNNA Joya APRN, [place] [facility]; Sent: 04/11/2024 12:32:36 EST Show up: 04/11/2024 12:32:00 EST Subject: RE: Ambulatory Reminder From: JOHNNA Joya APRN, Zulema X To: EU - Administrative; Sent: 04/12/2024 08:16:54 EST Show up: 04/12/2024 08:16:00 EST Subject: RE: Ambulatory Reminder OK to f/u PRN [facility] Reminderson 03-21-2024 Reminders Reminders From: Yanelis Jennings LPN To: GSN - Clinical; Sent: 03/21/2024 13:32:01 EDT Show up: 02/18/2034 07:00:00 EDT Subject: colonoscopy recall Due Date/Time: 03/20/2034 07:00:00 EDT Reminder/Recall Patient due for screening colonoscopy 03/20/2034. [facility] ALL CBC WITH AUTO DIFFon BASOPHILS ABSOLUTE AUTO 0.1 [facility] Basophils/100 WBC (Bld) 0.7 % 0.2 - 2.0 % [facility] Eosinophils/100 WBC (Bld) 1.9 % 0.9 - 7.0 % [facility] Erythrocyte distribution width (RBC) [Ratio] 13 % 11.0 - 15.0 % [facility] Hematocrit (Bld) [Volume fraction] 42.1 % 36.0 - 48.0 % [facility] Hemoglobin (Bld) [Mass/Vol] 14.1 g/dL 12.0 - 16.0 g/dL [facility] IMMATURE GRANULOCYTES ABS AUTO 0.02 [facility] Immature granulocytes/100 WBC (Bld) 0.3 % 0.0 - 0.5 % [facility] LYMPHOCYTES ABSOLUTE AUTO 2.4 [facility] Lymphocytes/100 WBC (Bld) 31.7 % 20.5 - 60.0 % [facility] MCH (RBC) [Entitic mass] 30.3 pg 26.7 - 34.0 pg [facility] MCHC (RBC) [Mass/Vol] 33.5 g/dL 29.9 - 35.2 g/dL [facility] MCV (RBC) [Entitic vol] 90.3 fL 81.0 - 99.0 fL [facility] MONOCYTES ABSOLUTE AUTO 0.5 [facility] Monocytes/100 WBC (Bld) 6.4 % 1.7 - 12.0 % [facility] NEUTROPHILS ABSOLUTE AUTO 4.5 [facility] Neutrophils/100 WBC (Bld) 59 % 43.0 - 75.0 % [facility] Platelet mean volume (Bld) [Entitic vol] 9.5 fL 9.5 - 13.5 fL [facility] EO # 0.1 [facility] PLT 261 [facility] RBC 4.66 [facility] WBC 7.5 [facility] Basophils Auto (Bld) [#/Vol] on 03-15-2024 Basophils (Bld) [#/Vol] Automated basophil count 0.0-0.1 [facility] Basophils/100 WBC Auto (Bld) on 03-15-2024 Basophils/100 WBC (Bld) Automated basophil % 0.2-2.0 [facility] Eosinophils/100 WBC Auto (Bl d)on 03-15-2024 Eosinophils/100 WBC (Bld) Automated eosinophil % 0.9-7.0 [facility] Erythrocyte distribution wid th Auto (RBC) [Ratio]on 03-15-2024 Erythrocyte distribution width (RBC) [Ratio] Erythrocyte distribution width [Ratio] by Automated count 11.0-15.0 [facility] Hematocrit Auto (Bld) [Volum e fraction]on 03-15-2024 Hematocrit (Bld) [Volume fraction] Hematocrit [Volume Fraction] of Blood by Automated count 36.0-48.0 [facility] Hemoglobin [Mass/volume] in Bloodon 03-15-2024 Hemoglobin (Bld) [Mass/Vol] Hemoglobin [Mass/volume] in Blood 12.0-16.0 [facility] Carlos 03-15-2024 L Specimen: [id number] Received: 03/18/24 Status: CAREY Warren Num: [id number] Spec Type: Surgical Subm Dr: Nando Navarrete Tissues: A Endometrial Polyp (ENDOMETRIAL POLYP) B Endometrium - Curettings (ENDOMETRIAL CURETTINGS) Procedures: HE/14, Gross/Micro L4/2 Age/ Patient Sex Location Account Attending Physician Fely Matt 53/F [facility] [id number] Nando Navarrete SPEC NUM: [id number] RECD: 03/18/24 STATUS: CAREY WARREN NUM: [id number] KRISSY: 03/15/24 [facility] DR: Nando Navarrete ENTERED: 03/18/24 [facility] DR: Efe,Lab SPEC TYPE: Surgical DEPT: [facility] ORDERED: HE/14, Gross/Micro L4/2 ORDERED: HE/14, Gross/Micro L4/2 Pathological Diagnosis A. Labeled as endometrial polyp , polypectomy: - Fibroepithelial polyp. - No evidence of dysplasia or malignancy identified. B. Endometrium, curettage: - Scant fragments of inactive endometrial and endocervical glands, and stromal tissue with lymphoid aggregate. - No evidence of hyperplasia or malignancy identified. Clinical Information Endometrial polyp, pelvic pain, postmenopausal state Gross Description Part A received in formalin with the patient's name and endometrial polyp #1 and consists of a irregular shaped portion of white-chacon pink fibrous soft tissue measuring 3.5 x 2.5 x 1.5 cm. The specimen is serially sectioned revealing white, fibrous, cystic, soft tissue. The specimen is entirely submitted in cassettes A1 to A6. Part B received in formalin with the patient's name and endometrial curettings and consists of multiple hemorrhagic mucoid tissue fragments with blood measuring 1.0 x 1.0 x 0.1 cm in aggregate. The specimen is entirely submitted in cassette B1. ---- Specimen: [id number] Received: 03/18/24 Status: CAREY Marina Num: [id number] Spec Type: Surgical Subm Dr: Nando Navarrete Tissues: A Endometrial Polyp (ENDOMETRIAL POLYP) B Endometrium - Curettings (ENDOMETRIAL CURETTINGS) Procedures: HE/14, Gross/Micro L4/2 ---- Patient: Fely Matt [id number] (Continued) ---- Specimen: [id number] Received: 03/18/24 (Continued) Signed (signature on file) Reese Douglass MD 03/20/24 1250 ---- Specimen: [id number] Received: 03/18/24 Status: CAREY Warren Num: [id number] Spec Type: Surgical Subm Dr: Nando Navarrete Tissues: A Endometrial Polyp (ENDOMETRIAL POLYP) B Endometrium - Curettings (ENDOMETRIAL CURETTINGS) Procedures: Karolyn/Esperanza L4/2 ---- Patient: Fely Matt [id number] (Continued) ---- Specimen: [id number] Received: 03/18/24 (Continued) Microscopic Description A B: Microscopic examination is performed. CPT Codes 14008 x2 ---- ---- Specimen: [id number] Received: 03/18/24 Status: CAREY Warren Num: [id number] Spec Type: Surgical Subm Dr: Nando Navarrete Tissues: A Endometrial Polyp (ENDOMETRIAL POLYP) B Endometrium - Curettings (ENDOMETRIAL CURETTINGS) Procedures: HE/Karolyn Chang/Esperanza L4/2 ---- Patient: Fely Matt [id number] (Continued) ---- Signed (signature on file) Reese Douglass MD 03/20/24 1250 Normal [facility] - Hematology and Cell countson 03-15-2024 Immature granulocytes/100 WBC (Bld) 0.3 % 0.0-0.5 [facility] Leukocytes [#/volume] correc galileo for nucleated erythrocytes in Blood by Automated counon 03-15-2024 WBC corrected for nucl RBC Auto (Bld) [#/Vol] Leukocytes [#/volume] corrected for nucleated erythrocytes in Blood by Automated coun 4.0-11.0 [facility] Lymphocytes Auto (Bld) [#/Vo l]on 03-15-2024 Lymphocytes (Bld) [#/Vol] Lymphocytes [#/volume] in Blood by Automated count 1.2-3.8 [facility] Lymphocytes/100 WBC Auto (Bl d)on 03-15-2024 Lymphocytes/100 WBC (Bld) Lymphocytes/100 leukocytes in Blood by Automated count 20.5-60.0 [facility] MCH Auto (RBC) [Entitic mass ]on 03-15-2024 MCH (RBC) [Entitic mass] MCH [Entitic mass] by Automated count 26.7-34.0 [facility] MCHC Auto (RBC) [Mass/Vol]on 03-15-2024 MCHC (RBC) [Mass/Vol] MCHC [Mass/volume] by Automated count 29.9-35.2 [facility] MCV Auto (RBC) [Entitic vol] on 03-15-2024 MCV (RBC) [Entitic vol] MCV [Entitic volume] by Automated count 81.0-99.0 [facility] Monocytes Auto (Bld) [#/Vol] on 03-15-2024 Monocytes (Bld) [#/Vol] Automated blood monocyte count 0.3-0.8 [facility] Monocytes/100 WBC Auto (Bld) on 03-15-2024 Monocytes/100 WBC (Bld) Automated monocyte % 1.7-12.0 [facility] Neutrophils Auto (Bld) [#/Vo l]on 03-15-2024 Neutrophils (Bld) [#/Vol] Neutrophils [#/volume] in Blood by Automated count 1.4-6.5 [facility] Neutrophils/100 WBC Auto (Bl d)on 03-15-2024 Neutrophils/100 WBC (Bld) Automated neutrophil % 43.0-75.0 [facility] No Panel Informationon 03-15 Eosinophils # (Auto) 0.1 10 3/uL 0.0-0.7 [facility] Immature Granulocyte # (Auto) 0.02 10 3/uL 0.00-0.03 [facility] Platelet mean volume Auto (B ld) [Entitic vol]on 03-15-2024 Platelet mean volume (Bld) [Entitic vol] Platelet mean volume [Entitic volume] in Blood by Automated count 9.5-13.5 [facility] Platelets Auto (Bld) [#/Vol] on 03-15-2024 Platelets (Bld) [#/Vol] Platelets [#/volume] in Blood by Automated count 150-450 [facility] RBC Auto (Bld) [#/Vol]on RBC (Bld) [#/Vol] Erythrocytes [#/volume] in Blood by Automated count 4.20-5.40 [facility] ALL BASIC METABOLIC PANELon 03-08-2024 Anion gap [Moles/Vol] 15.2 mmol/L [facility] Calcium [Mass/Vol] 9.3 mg/dL 8.5 - 10. 1 mg/dL [facility] Chloride [Moles/Vol] 106 mmol/L 98 - 107 mmol/L [facility] CO2 [Moles/Vol] 24 mmol/L 21.0 - 32.0 mmol/L [facility] Creatinine [Mass/Vol] 0.85 mg/dL 0.55 - 1.02 mg/dL [facility] GFR/1.73 sq M.predicted CKD-EPI (S/P/Bld) [Vol rate/Area] >60 >=60 mL/min/1.73m 2 [facility] Glucose [Mass/Vol] 84 mg/dL 74 - 106 mg/dL [facility] Potassium [Moles/Vol] 4.2 mmol/L 3.5 - 5.1 mmol/L [facility] Sodium [Moles/Vol] 141 mmol/L 136 - 145 mmol/L [facility] TBH EGFR-NON AF [place] >60 >=60 mL/min/1.73m 2 [facility] Urea nitrogen [Mass/Vol] 12 mg/dL 7.0 - 18.0 mg/dL [facility] Urea nitrogen/Creatinine [Mass ratio] 14.1 mg/mg [facility] IGP,APTIMA HPV,AGE GDLNon AGE GDLN ACOG TESTING Note . [facility] Comment on above: TESTS RESULT FLAG UN ITS REF RANGE LAB Clinician Provided Cytology Information Source.............Cervix;Endocervix No. of containers..01 ThinPrep Vial Age Algo ACOG Annmarie... 30-65 01 FLAG LEGEND: L-Low Normal,H-High Normal,LL-Alert Low,HH-Alert High <-Panic Low,>-Panic High,A-Abnormal,AA-Critical Abnormal Performed at: 01 =G [address] [address] Chula Duran MD, HPV APTIMA Negative Negative [facility] Comment on above: This nucleic acid am plification test detects fourteen high- risk HPV types (16,18,31,33,35,39,45,51,52,56,58,59,66,68) without differentiation. Performed at: =G - [facility], [place] [id number] Rod Buster Helper: Chula Duran MD, Phone: [phone] Performed at: - [facility] [address], [place] [id number] Rod Buster Helper: Chula Duran MD, Phone: [phone] IGP, APTIMA HPV, RFX 16/18,45 Note . [facility] Comment on above: TESTS RESULT FLAG UN ITS REF RANGE LAB DIAGNOSIS: 02 NEGATIVE FOR INTRAEPITHELIAL LESION OR MALIGNANCY. Specimen adequacy: 02 Satisfactory for evaluation. Endocervical and/or squamous metaplastic cells (endocervical component) are present. Performed by: Johnnie Sierra, Zanjero (ASCP) . 02 Note: Note 02 The [...] High,A-Abnormal,AA-Critical Abnormal Performed at: 02 WB [facility] [address] [place] [address] Chula Duran MD, BRUSH-SPATULA CERVIX ENDOCERVIX [facility] Ambulatory Visit Summaryon 0 02-14-2024 Ambulatory Visit Summary Ambulatory Visit Summary FELY MATT :1970 Visit Date:02/14/2024 Ambulatory Visit Instructions Your Diagnosis Rectal bleeding Abdominal cramping Your Care Team Attending Physician - RUBI HERNANDEZ, Mikhail Stevens Primary Care Physician - ANTIONE HERNANDEZ, CARRIE Referring Physician - CARRIE TALBOT MD This Is Your Medications List Contact prescribing physician if questions or concerns famotidine (Pepcid AC) metoprolol (metoprolol 25 mg ER Tab) spironolactone (spironolactone 25 mg Tab) valsartan (valsartan 40 mg Tab) Procedures Performed Cystoscopy (11/07/2023), Cholecystectomy, Colonoscopy, Hysteroscopy, Stripping of vein. Discharge Vitals Heart Rate (Peripheral) 76 Respiratory Rate 16 Blood Pressure 118/78 Height 163 cm Height 64 in Weight 112.8 kg Weight 248.16 lb BMI 42.46 Medications What How Much When Instructions Unchanged famotidine (Pepcid AC) 20 Milligram By Mouth Every day Contact prescribing physician if questions or concerns Unchanged metoprolol (metoprolol 25 mg ER Tab) 1 Tablets By Mouth Every day Contact prescribing physician if questions or concerns Unchanged spironolactone (spironolactone 25 mg Tab) 1 Tablets By Mouth Every day Contact prescribing physician if questions or concerns Unchanged valsartan (valsartan 40 mg Tab) 1 Tablets By Mouth 2 times a day Contact prescribing physician if questions or concerns Allergies Cipro (Hives) Nyquil Cold Medicine (Unknown) codeine (Hives) Problems Ongoing - Any problem that you are currently receiving treatment for. Abdominal cramping Adrenal adenoma ASHD (arteriosclerotic heart disease) BMI 40.0-44.9, adult Class 3 obesity Dysuria Essential hypertension GERD without esophagitis Gross hematuria Kidney stones Lesion of cervix OAB (overactive bladder) Obstructive sleep apnea Rectal bleeding Smoker Stress incontinence Patient Survey You may receive a survey via text or e-mail asking about your office visit. Please share your experience with us by completing your survey. We appreciate your feedback and thank you for choosing us for your care. Normal [facility] Ambulatory Visit Summaryon 0 01-30-2024 Ambulatory Visit Summary Ambulatory Visit Summary FELY MATT :1970 Visit Date:01/30/2024 Ambulatory Visit Instructions Your [...] EDT With: RUBI HERNANDEZ, Mikhail Stevens Where: [facility] [address], [address], [place] [id number] Medications What How Much When Why Instructions [...] for choosing us for your care. Normal [facility] Urology Office/Clinic Noteon 01-30-2024 Urology [...] with voice recognition artificial intelligence software, specifically Predictvia, WindSim and or GoWar. Substitutions may have occurred due to the [...] any recent stone passing. [1] CTU at [facility] 11/01/2023 without abnormality explain patient's hematuria [...] unspecified, uncomplicated) Increased risk of CA Orders: [id number] Measure Post Void residual urine and/or bladder capacity by US- non-imaging Urnls Dip Stick Auto w/o Microscopy POC 50072 Follow-up With When Contact Information JOHNNA Joya [...] tab(s), Oral, (more content not included)... Normal [facility] Comment on above: Result Comment: Elec tronically Signed By: JOHNNA Joya APRN, Zulema Lema\.br\Date and Time Signed: 01/30/24 10:50 EDT Urine Cytology ([facility])on 0 11-12-2023 Microscopic exam Cytology (U) [Interp] Diagnosis Info Invalid Interpretation Code [facility] Comment on above: Result Comment: A:Ur ine,Cystoscopy:Cystoscopy Interpretation - MicroScopic Description - Adequacy - Gross Description Site ID:A color Light Yellow fixative Alcohol Specimen designated Cystoscopy received in alcohol preservative and labeled with the patient?s name, consists of 100ml clear light yellow fluid. Electronically signed by : on: 11/12/2023 10:13:54 Performed By: #### 1 [id number] #### [facility] Laboratory [address] [place] [address] Coding Summary.on 11-09-2023 Coding Summary. KNRCLusx87CNh9lZd+PG hl YWQ+JX3OYQMnP01wfWFvfN 2dZ7MYBQvHQxphLIRMJSwX UaCtwfBbUC2yfPGePEOl IC8+IM9qSLUzOoiaaKIcv5 O0eCA6X59xtw4pYHcbvPU3 MPQvXbCnfghcq5hkiPq0QJ cuNmluOyBt OHHjkA21IYZ2tI14In13fE XvzLOeq9phzZy4BjJsWICz IKZ5nThySKmmw2NsFLKjZ1 9rzVShb4B4 VBPysOhwoUPdTjIicTZ9oX 7gUHmzjqbib4gebydjZve3 we65yKCrr1V6gIA3U5Ckta F5KCBmwMPi NfjueUZDaV9ntfjns1qchy ikKgEmPGRpENe9JLe2AAGb fMkvKoGfLK45HMM3NPJtga YlH4HiKIWt iImrFkX8u3V0Mk9XS7PYZd leP6LHTAVRQCowgNC+PC90 tc60S6KiIwiuPvo3ZEDuWS C7sNZ9cZ6a SMPgTNtvl4X3gHI4N0Dqta Mzjl1zo3pkSFRwVUehT92b gIJsc9F8CHAniSX7ZSFtxO awQdHwgH90 Oyc+FQPcaZjyq2YxOgszf7 qyc7pueZo6LmlnPJXmwuAn qDueFBU1n5JoJn5hEDHajP P8mYS0qP1d VuFmLnS7XXruS344TmNxxV YoIzvgO17fO6EmsYL+PHRy Ltq8DROykVcwDX2xH8GdDW RpbmctbGVm qRohWF8lLJAphtooDOXssN 2gPANfD3x8ZlBaKeT1AVqp F6AxEBCsmdxjCh87wH5pRt SoVdC5BUxj L7RyumQ9SQMldCOsFOvbIW L3X74gd1A3ZTKqGXSwVZY9 uOV2qH5tdRrxdalxqVCewT sgdmVydGlj JMsuFZpsA934SJRniKhtEw NvZGluZyBEYXRlOiAgMDYv MjAvMjAyNDwvdGQ+PHRkIH G6mOpaGRGr kWXsEMqxOu0aaAjecYhlSE 0hBOCfmqnjXCMkxR0rPZOn uHPcmGvlGY6pSMJpoictp4 46PcJsWFZ6 VBXsuJWyZ5YdzQ1gCwGqLO QuBFCxH4OdqNRuUFkoT160 GUnnTmE3KPIwqbGoU5MvVG FsaWduOiB0 z0E0Kh5So9MnknjjW1VkaV UdZhQgBjtyLFs9B9YcLtms dHI+CF66YSHhWR77SBg1BW H4zEtdAUhb WDAyO0RguP8eWkQnVSZeWU RkOyc+PHRhYmxlIHdpZHRo MNurSAMvYcBxbRxnVE3oBj 9yZGVyLWNv hPvtvINvWfCjn5wuVOTsFZ ysPN4ihXhtL0CdtKN9LWAu w8w3Dt47Z49gV2VqoOP+PG ZwwOG7tYY0 xO4mCuOjOpS6WVimN824Eg QfjAZmKrczb9hxl4wqeBl3 MaM9LTDyhvVxlUbdZBM5b1 SaYf41J72x IHdpZHRoPSIxNSUiIHZhbG umah9hlO5cLk2+PGNvbCB3 bCB3oC8mYrGbPrP2VHncN4 49InRvcCIv Kynec6fmz3wmhXq4BhMnCZ GtkaLalOtbZPJ5u7ByLu75 M5GdaFdva3WeQxb4ue58nT Zdj6U0ePA8 W8UdIOBgrayeuVWxpDwfLB 7bGMCciiooXGXvoZ1uRRPf F8s9AuYvGgU5BEvqT6Jccg Z7SRThpFEp VDOlgLXCeF2aowyxq9wgch wzTzXjTWFhJAs8CCl9RSMh rUelJlUyMWR5BkK9OOL9gZ PrcZ0vhQpl lzmfhC2rNpa+JZH8jXApzY GUQN0uKauvjMR+PHRkIHN0 tIeqMIkqGZCdmL7mYPXbX9 t9HiXfQyI6 HSwsH9ZxttY3POZkoCJuRU MatVXChY3cwdlst5xsjloa QiJkZZCrUDe7DWg6MWXkjG duOiBsZWZ0 VxF5FPT0hDWfcK9qfWnfxv gtuI3iAxk+QmlydGggRGF0 EIk8H8MuRgr8SSRnhRwdEN 0ncGFkZGlu Kr3ggLityRcmCI7iXMExcu qni877TyWvn7qsANAmkNVb LKtjVCX9X38qi5E1DGBsYW JjVXH4oIY3 bJ5cdEafpimgsCYatSpbkc MkkRdvMKrcOFmmO285JHWb jQhaBpPyGQl3C7RpYfa9VF KurEytYS4h bGVoPFcrCn2tqNlsbQnvDB 3dPUPcsvcil836ExSty4va NEYlvPGfTLfdDYG3T13ux7 W9KSMqHYEz ADX9rPC0rA9kiFtfffzfgF VmdDsgdmVydGljYWwtYWxp K850KZNgcEleWuVtpVh9D1 NePxx5MZOx cKsuBT4yaUPjJAydUz6yzE koeUnxCM9wTMKdctfbe951 QoGei1hlVOQloCNhYSejWA H1D92ro8Q6 VBTcNNIkURD6iXI3jB3jhT lnbjogbGVmdDsgdmVydGlj GZgzFGwiA697BMLolVfwGp BhdGllbnQg OWkiGYb6S9GaBkdwfIS+PC 15KCRuRF30nHKanXDve2oz dZj8TjCxTQYgDGQ8jPydPH rje0PwIRXa F46hqGRot5N6IIWhmYfmmH GrHsYlhDC1jX2fVDxousoy m7iypwceLwyaf6ahnk94rB 25M26eWTdy ZHRoPSIzMCUiIHZhbGlnbj 0zbC9xWr0+QORtqWO6kTT9 aU0dALXlQqU6ETwsQ286Oo RvcCIvPjxj j5oti7qhhYp0UdW3DJZxmh TtwNcfKYZ6q8BfGi26T09o IHdpZHRoPSIyMCUiIHZhbG gbdq8uoA0v Ii8+HZTxbIA2bDD0tQ9yYa WzJvQ9MPlhG128EdIlaIAo BupuS05wN8XcoME+PHRyPj p2EEHvnGfs QP6nnHUfEKhyCq3bUIL1Dv CeKfMvALgyK9AaHLMtktcv cwphyBW9PVKrDFDanY13Mu 9udDogMTBw nMKGnA4jqeela3sldggrMv WsCRPqIKb2VDi4CVPywQyh WnWcEOR7YtR5XGR6iGKerY 1hbGlnbjog lF3gP2DsKXCmzbqeRd38gQ 9uHkGsFoG1GChwCwt+UEhJ FOWSIXOWVKVJNU0FSL79KE 18yNIbr3D5 cXP2B6ZiTEXzpjlrizoqsW C6YAGwAICuhG72xDBwEUxk Zd1nq9N3g248NWZyKUGwgO 22Yn5vsJrw UODrgOJRiP0euwybm5xezf gyNaHwZQWbRXa6IUs0GICm mNhsNjQvWUV1NsK7BDV8bP KhgH6maHev xphptM6oEjr+MTIvMjcvMT v1HmpqwBX+FXHyUUR2tTpl OXfdXEIpgR7oIMRfF7d2Vt HcVdF0EMqx O1AtRCOdjpkiQo15iS4sSe IrCdY2YGshT1VfhoM2EMWg tDDxGBmeMEE5Y79gq3D8ZA MwMDAwMDA7 jKD3aW1hvXlidjawvYPyuW mgqdCzhWrwKDsdAYvbG771 IHRvcDsnPjUxIFllYXJzPC 37AF42rDZc k7I8dII1B2TbSWDqibqwft fxwJQ1OIPiCIEbhO81cFTz LCtpJz5ix0T0l930WYYrNH ZukZ31Dp8z xZgeJXJtrAMRtS1rmhjpr3 xlxmwyFnOwZYDwWPd6CJq3 GONjtDicSuRpZZR7ZdZ3KE S8cCLjiD3s iHhwqmkbwF8bMwo+RmVtYW jfEC56VJ68gWMwh6N7gZQ7 Z8BiUTIypevftckiqNB4DI AaDBHyqT27 pTNoJTwlLl1jp9S8h436GV SxEVNkbB90Bt5jrJwpGCTy gESVfH2pwspvn1hhocdxNj AwMDAwMDt0 PWc2TTEejResLfSxDDD7Ve U2JEA9iHNasG6ruOzxahxl qO2rCen+S7S1cPD6lNYvpB wvdGQ+PC90 no31R4IaUwoyDdf1RFUdWE L9nZO3nZ0yYTMvTMbrs3E4 wFO3O2VvnlKwsg9sm3pgTF QnXOfuR68r oQRmu5N5QAOkyAX2SGVkrC fvRzCadP18Pwi+PGNvbGdy t0UaWtqwd9rjr4jbtNk7Te MwJSIgdmFs zXzwAUZ1n2PiXv08V13iMO dpZHRoPSIzMCUiIHZhbGln hz5qzH6xTr0+NCVgcGG8rM I0zC9kYbZo RzW8IWwaK139YaGtoFNsGi iza4hbk8sgmHy7BhNxCVHd hsIkhNaaVFG3z2JnUn57C7 UytJuxo5Yr Wjj2fp47dLAdg9H9uMK0V2 KaSPCatqwxeJQptBhbQR4j TCDpvdtvLJDnnN0vNWIcE7 x6IwEbJkV7 XBvrU8GfwoK3PCIabUTyTT RwyKTZoJ7dardzm4dckhxu WyDeUPSsXNt3NOf0PXLrrW duOiBsZWZ0 HbL2HOH2vFNllZ7byLvodm afkB8rBxe+LMd6x7gqwVCl GC7pcGF4TH95DR24eZTfy4 H2aFQ3A6Hx WQCdrygtteiikQE1ATAaJT IzdU26Mh3trHtkOq1bBSLm DJE6NSJpbKOsK5IroV7dCh AjMDAwMDAw W5ElwQXuOMknN095EWjvEq C3DGFpbiFoY4LaEVNsnXuf BbQ2v3X9Xk8QEF65LG01NU 79vBYfe9X6 aCE0L0OfVEEbnnynpurrsZ S7EDYmOUSgcT03Po9gzTvw Et5uXAGfOAM7GDHkkEHeI7 ZsqQ8aQcJy MNPgBMQeU7GcwNNeDOxnY4 08VQowLiA7VKRpjvPbV0Bm OJHuiWncIuB3v2O3Cw1ZSh 78EV35XX56 gFGhb4V4jXM6V6BvZOFrlx ptxjkjjBU7QXHaDTBtvG21 Ay9jdDqlKu8rZQIkMRJ1HZ WatFEtA8Lq fJ4tMnUsJUKnPVAgQ4RvdV LqGWtaT189DXjuWnJ2VRPk zeMsH5LhTZKckFdtHwQ0c2 L4Ad7GISqd fae3L0NdVugprIV+PC90YW VvXZ34jJXhcIGpr7ngjMw1 BxCeBLVuMWX3nKpjVHovn4 CpOOBkM44r cNSip1H7PXRlp (more content not included)... Normal [facility] Consent for Procedure/Surger yon 11-07-2023 Consent for Procedure/Surgery [id number]#1.0 0TIFF Normal [facility] Consent for Treatmenton 10-20 Consent for Treatment [id number]#1.0 0TIFF [facility] Inpatient Patient Summaryon 11-07-2023 Inpatient Patient Summary [address] [address] Clinical Summary Person Information Name: FELY MATT Age: 53 Years : 1970 Sex: Female PCP: CARRIE TALBOT MD Marital Status: Race: White Ethnicity: Non- or Language: Brazilian Visit Id: Visit Reason: GROSS HEMATURIA Speciality: Acuity: Enc Type: Outpatient Med Service: Surgery Arrival: 11/07/2023 09:24:15 Discharge: Dispo Type: Address: [address] [place] [phone] Provider Notes: Diagnosis: Gross hematuria; OAB (overactive [...] Information: EU - Cystoscopy Discharge Instructions (CUSTOM) [facility] IntraOperative Documentson 0 11-07-2023 IntraOperative Documents [id number]#1.0 0TIFF [facility] Lab Reportson 11-07-2023 Lab Reports [id number]#1.0 0TIFF [facility] Main OR Intraoperative Recor don 11-07-2023 Main OR Intraoperative Record IntraOp Document Type FTURO Summary Primary Physician: Gemma Blanco MD Finalized Date/Time: 11/07/23 10:45:52 Pt. Name: FELY MATT/Sex: 1970 Female Med Rec #: [id number] Physician: Gemma Blanco MD Financial #: [id number] Pt. Type: O Room/Bed: / Admit/Disch: 11/07/23 [...] Evi Pitt Role Performed Surgeon - Primary Ladle Mechanic - Primary Scrub - Primary Time In [...] (If Participants Grzegorz GARLAND, Magali Applicable) Soco Pitt, Evi Yee LPN Time Out Complete 11/07/23 10:25:00 Allergies Reviewed? [...] 10:40 Magali Lantigua RN 11/07/23 10:45 Normal [facility] Main OR Preoperative Recordo n 11-07-2023 Main OR Preoperative Record Holding Area Document Type FTURO Summary Primary Physician: Gemma Blanco MD Finalized Date/Time: 11/07/23 09:53:28 Pt. Name: FELY MATT /Sex: 1970 Female Med Rec #: [id number] Physician: Gemma Blanco MD Financial #: [id number] Pt. Type: O Room/Bed: / Admit/Disch: 11/07/23 [...] JARETT Sanchez RN, Ruthann 11/07/23 09:53 Normal [facility] Operative Reporton Operative Report Patient: FELY MATT Age: 53 years Sex: Female : 1970 [...] OAB and adrenal adenoma workup . Normal [facility] Comment on above: Result Comment: Elec tronically Signed By: Gemma Blanco MD\.br\Date and Time Signed: 11/07/23 10:42 EDT Outpatient Surgery Discharge Instructionon 11-07-2023 Outpatient Surgery Discharge Instruction [id number] 0TIFF Normal [facility] Outpatient Surgery Discharge Instruction [address] [address] Patient Discharge Instructions PERSON INFORMATION Name: FELY MATT Date of : 1970 Current Date: 11/07/2023 10:39:32 PHYSICIANS Admitting Physician: Gemma Blanco MD Comment: Discharge Diagnosis: Gross hematuria; OAB (overactive bladder) FELY MATT has been given the following list of [...] you have a fever over 100 degrees. IVERNELL RAELENE, have received the attached patient education materials/instructions and have verbalized understanding: May we do a follow up call? Yes No I was present when discharge instructions were given Patient Signature Date Clinican/Nurse Signature ___ Date You may receive a survey from [employer] asking you to rate your care experience. Your feedback is important and will help us understand what we do well and how we can improve the quality of care we provide to you, your loved ones and our community. It?s an honor to serve you. Thank you for choosing [facility] Normal [facility] Progress Note-Physicianon Progress Note-Physician Patient: FELY MATT Age: 53 years Sex: Female : 1970 [...] day, # 1 tab(s), Refills(s) 0, Pharmacy: [facility], 163, cm, 10/03/23 10:16:00 EDT, Height/Length Dosing, 113.5, kg, 10/03/23 10:16:00 EDT, Weight Dosing... dexamethasone 1 mg oral tablet: 1 mg = 1 tab(s), Oral, Once, Take at 11 PM; Have cortisol level drawn at 8 AM the next day, # 1 tab(s), Refills(s) 0, Pharmacy: [facility], 163, cm, 10/03/23 10:16:00 EDT, Height/Length Dosing, 113.5, kg, 10/03/23 10:16:00 EDT, Weight Dosing... mirabegron 50 mg oral tablet, extended release: 50 mg = 1 tab(s), Oral, Daily, # 30 tab(s), Refills(s) 11, Pharmacy: [facility], 163, cm, 10/03/23 10:16:00 EDT, Height/Length Dosing, 113.5, kg, 10/03/23 10:16:00 EDT, Weight Dosing Documented Medications Documented Pepcid AC: 20 mg, Oral, Once losartan 50 mg Tab: 50 mg = 1 tab(s) metoprolol 25 mg ER Tab: 25 mg = 1 tab(s), Oral, Daily spironolactone 25 mg Tab: 25 mg = 1 tab(s) Impression and Plan Assessment and Plan: Diagnosis: Adrenal adenoma (SNG47-ZV D35.00, Working, Medical), Gross hematuria (XTC79-SR R31.0, Discharge, Medical), OAB (overactive bladder) (OLU39-PB N32.81, Discharge, Medical), TEAGAN (stress urinary incontinence, female) (YBW69-RB N39.3, Working, Medical). 53 year old female [...] -Start mirabegron 50 mg daily. Risks/benefits discussed. ([place] OF) 2. TEAGAN - not seen on exam today. Declined surgery -PFPT 3. Adrenal adenoma - metabolic workup neg -Repeat imaging in 1-2 years to ensure no growth. 4. Gross hematuria - pink when she wipes sometimes, thinks gross was during stone event. CTU neg, cysto neg -Follow up urine cytology Normal [facility] Comment on above: Result Comment: Elec tronically Signed By: Francis HERNANDEZ, Gemma Santana.br\Date and Time Signed: 11/07/23 10:46 EDT RAD - CT Reporton 11-07-2023 RAD - CT Report [id number]#1.00 TIFF Normal [facility] Urine Cytology ([facility])on 0 11-07-2023 Method of Extraction Cystoscopy Normal [facility] Comment on above: Performed By: #### 1 [id number] #### [facility] Laboratory [address] Number of Jars 1 Invalid Interpretation Code [facility] Comment on above: Performed By: #### 1 [id number] #### [facility] Laboratory [address] [place] [address] UC Specimen Cystoscopy Normal [facility] Comment on above: Performed By: #### 1 [id number] #### [facility] Laboratory [address] Type of Service Technical Only Normal [facility] Comment on above: Performed By: #### 1 [id number] #### [facility] Laboratory [address] [place] [address] Lab Reportson 10-25-2023 Lab Reports [id number] 0TIFF Normal [facility] Lab Reportson 10-17-2023 Lab Reports [id number]#1.0 0TIFF Normal [facility] Patient Educationon 10-06-19 Patient Education [...] these instructions at home: Medicines ? Take tplz-yby-bhilzwc and prescription medicines only as told by [...] provider. Document Revised: 12/18/2020 Document Reviewed: 12/18/2020 [employer] Patient Education ? 2022 [place]. Hematuria, Adult Hematuria is blood in the [...] these instructions at home: Medicines ? Take zwki-mgq-abtegme and prescription medicines only as told by [...] follow y (more content not included)... Normal [facility] Formson 10-04-2023 Forms [id number]#1. 00TIFF [facility] Lab Reportson 10-04-2023 Lab Reports [id number]#1.0 0TIFF [facility] Ambulatory Visit Summaryon 0 10-03-2023 Ambulatory Visit Summary FELY MATT :1970 Visit Date:10/03/2023 Ambulatory Visit Instructions Your [...] Pharmacy Information [facility]: [address], [place] [id number] [phone] Allergies Cipro (Unknown) Nyquil Cold Medicine (Unknown) [...] for choosing us for your care. Normal [facility] ED Note-Physicianon 08-16-19 ED Note-Physician [id number]#1.0 0TIFF Normal [facility] Urine Cultureon 08-09-2023 Bacteria identified Cx Nom (U) 75,000 colonies/ml mixed bacterial skin contaminants 2 Days PERFORMED BY: [place] [address] PATHOLOGIST IS ANALYST ISABELA MUÑOZ M.D. Normal [facility] Comment on above: Performed By: #### C UU #### [address] Laboratory - Chemistry and C hemistry - challengeon 08-03-2023 Bilirubin Ql (U) Negative [facility] Glucose (U) [Mass/Vol] Negative [facility] Ketones Ql (U) Negative [facility] pH (U) 5.0 [pH] [facility] Specific gravity (U) [Rel density] 1.015 [facility] Urobilinogen (U) [Mass/Vol] 0.2 mg/dL [facility] Laboratory - Specimen inform ationon 08-03-2023 Appearance (U) clear [facility] Color (U) yellow [facility] Laboratory - Urinalysison Leukocyte esterase Test strip Ql (U) Negative [facility] Nitrite Ql (U) Negative [facility] Protein Ql (U) + [facility] No Panel Informationon 08-02 Urine Occult Blood + [facility] XR KNEE 4+ VIEWS LEFTon XR KNEE [...] Weight Tips; Status:Complete - Retrospective Authorization; Done: [id number] Some eating tips that can help you lose weight.; Status:Complete - Retrospective Authorization; Done: [id number] SocHx: Current smoker You need to quit smoking.; Status:Complete - Retrospective Authorization; Done: [id number] Tobacco Use Screening; Status:Complete; Done: [id number] You need to stop smoking. Though it is not easy, more than half of all adult smokers have quit. We encourage you to write down all the reasons you should quit smoking and set a quit date for yourself. Ask us how we can help. You may also call 0-492-VQTVNOW for free resources and assistance.; Status:Complete - Retrospective Authorization; Done: [id number] Patient Instructions Please bring all medicines, vitamins, [...] up in 4 months Chief Complaint FELY MATT is being seen for a 4 month [...] Recorded: 02Dec2022 09:55AM Heart Rate60, L Radial Rrbzcrul373, LUE, Sitting Yllrvwktt50, LUE, Sitting Height5 ft 4 in Ndgfxg421 lb BMI Ibgjyxekof37.2 kg/m2 BSA Calculated2.11 Tobacco Usea) Yes Patient [...] no ma (more content not included)... Normal [place] Tobacco Screening.on 023 Fall risk assessment c) Not medically indicated [facility] Personally-[place] y 250 DO Work Phone: Tobacco use status [facility] a) Yes -[facility]-[place] y 250 DO Work Phone: Tobacco Screening. Yes [facility] y 250 DO Work Phone: [...] we can help. You may also call 7-447-ESQMNOW for free resources and assistance.; Status:Complete - [...] Educated on DASH diet. Chief Complaint FELY MATT is being seen for a consultation for [...] to retrieve her recent Holter monitor from [employer]. I suggested a trial of a [...] VITALSon 08-11-2022 Adult depression screening assessment No [facility] y 250 DO Work Phone: Tobacco Screening.on 023 Tobacco use status [facility] a) Yes [facility] y 250 DO Work Phone: Tobacco Screening. Yes [facility] y 250 DO Work Phone: ECHOCARDIO M/2D COMPLETEon 0 06-27-2022 ECHOCARDIO M/2D COMPLETE Patient: FELY MATT Exam Date: 06/27/2022 : 1970 Gender:F Ordering : DR CARRIE TALBOT M.D. Admission #: [id number] Family : Order #: [id number] CLICK HERE TO VIEW EXAM ECHOCARDIOGRAM REPORT [...] M.D. on 06/28/2022 at 19:30 Normal [facility] BNPon 06-10-2022 Natriuretic peptide B (Bld) [Mass/Vol] 384.0 pg/mL Normal <=900.0 [facility] Comment on above: Performed By: #### B BRICK PICKER, BMP, HSTROPN ####[facility] [address] [address]DrMiranda Saha CBC AUTO DIFFon 06-10-2022 BASO # 0.0 103/ul Normal 0.0-0.1 [facility] Comment on above: Performed By: #### C BC ####[facility] [address] [address]DrMiranda Saha Basophils/100 WBC (Bld) 0.5 % Normal 0.2-2.0 [facility] Comment on above: Performed By: #### C BC ####[facility] [address] [place] [address]DrMiranda Saha EO # 0.1 103/ul Normal 0.0-0.7 [facility] Comment on above: Performed By: #### C BC ####[facility] [address] [address]Dr. Alis Saha Eosinophils/100 WBC (Bld) 1.6 % Normal 0.9-7.0 [facility] Comment on above: Performed By: #### C BC ####[facility] [address] [place], [place] [address]Dr. Alis Saha Erythrocyte distribution width (RBC) [Ratio] 15.9 % Critically high 11.0-15.0 [facility] Comment on above: Performed By: #### C BC ####[facility] [address] [place], [place] [address]Dr. Alis Saha Hematocrit (Bld) [Volume fraction] 37.1 % Normal 36.0-48.0 [facility] Comment on above: Performed By: #### C BC ####[facility] [address] [place], [place] [address]Dr. Alis Saha Hemoglobin (Bld) [Mass/Vol] 12.2 g/dL Normal 12.0-16.0 [facility] Comment on above: Performed By: #### C BC ####[facility] [address] [place], [place] [address]Dr. Alis Saha IG # 0.02 10e3/ul Normal 0.00-0.03 [facility] Comment on above: Performed By: #### C BC ####[facility] [address] [place], [place] [address]Dr. Alis Saha IG % 0.2 % Normal 0.0-0.5 [facility] Comment on above: Performed By: #### C BC ####[facility] [address] [place], [place] [address]DrMiranda Wallstrace Yifan LYMPH # 3.2 103/ul Normal 1.2-3.8 [facility] Comment on above: Performed By: #### C BC ####[facility] Q[address] [place], [place] [address]Dr. Alis Saha Lymphocytes/100 WBC (Bld) 37.3 % Normal 20.5-60.0 [facility] Comment on above: Performed By: #### C BC ####[facility] [address] [place] [address]DrMiranda Saha MANUAL DIFF REQ NO Normal [facility] Comment on above: Performed By: #### C BC ####[facility] [address] [place] [address]Dr. Alis Saha MCH (RBC) [Entitic mass] 29.8 pg Normal 26.7-34.0 [facility] Comment on above: Performed By: #### C BC ####[facility] [address] [place], [place] [address]Dr. Alis Saha MCHC (RBC) [Mass/Vol] 32.9 g/dL Normal 29.9-35.2 [facility] Comment on above: Performed By: #### C BC ####[facility] [address] [place], [place] [address]Dr. Alis Saha MCV (RBC) [Entitic vol] 90.5 fL Normal 81.0-99.0 [facility] Comment on above: Performed By: #### C BC ####[facility] [address] [place], [place] [address]DrMiranda Saha MONO # 0.4 103/ul Normal 0.3-0.8 [facility] Comment on above: Performed By: #### C BC ####[facility] [address] [place], [place] [address]Dr. Alis Saha Monocytes/100 WBC (Bld) 4.6 % Normal 1.7-12.0 [facility] Comment on above: Performed By: #### C BC ####[facility] [address] [place], [place] [address]DrMiranda Saha NEUT # 4.8 103/ul Normal 1.4-6.5 [facility] Comment on above: Performed By: #### C BC ####[facility] [address] [place], [place] [address]DrMiranda Saha Neutrophils/100 WBC (Bld) 55.8 % Normal 43.0-75.0 [facility] Comment on above: Performed By: #### C BC ####[facility] [address] [place], [place] [address]Tm. Alis Saha Platelet mean volume (Bld) [Entitic vol] 9.9 fL Normal 9.5-13.5 [facility] Comment on above: Performed By: #### C BC ####[facility] [address] [place], [place] [address]Ri. Alis Saha PLT 265 103/ul Normal 150-450 [facility] [facility] Comment on above: Performed By: #### C BC ####[facility] [address] [place], [place] [address]Ta. Alis Saha RBC 4.10 106/ul Critically low 4.20-5.40 [facility] Comment on above: Performed By: #### C BC ####[facility] [address] [place], [place] [address]Ba. Alis Saha WBC 8.7 103/ul Normal 4.0-11.0 [facility] Comment on above: Performed By: #### C BC ####[facility] [address] [place], [place] [address]Nm. Alis Saha [facility]-23 SARS-CoV-2 (COVID-19) RNA AMANDA+probe Ql (Unsp spec) Not detected Normal NOT DETECTED [facility] Comment on above: Result Comment: [...] for this test is supported by the [employer] of Health and Human Service's declaration that [...] used). Performed By: #### C VDTBH #### [facility] Laboratory [address] [address] [address] Alis Saha PROF CHEM 8 (BAS METB)on Anion gap [Moles/Vol] 11.7 mmol/L Normal [facility] Comment on above: Performed By: #### B BRICK PICKER, BMP, HSTROPN ####[facility] [address] [address]Dr. Alis Saha Calcium [Mass/Vol] 8.8 mg/dL Normal 8.5-10.1 [facility] Comment on above: Performed By: #### B BRICK PICKER, BMP, HSTROPN ####[facility] [address] [address]Dr. Alis Saha Chloride [Moles/Vol] 108 mmol/L Critically high 98-107 [facility] Comment on above: Performed By: #### B BRICK PICKER, BMP, HSTROPN ####[facility] [address] [address]Dr. Alis Saha CO2 [Moles/Vol] 23.7 mmol/L Normal 21.0-32.0 The [facility] Comment on above: Performed By: #### B BRICK PICKER, BMP, HSTROPN ####[facility] [address] [address]Dr. Alis Saha Creatinine [Mass/Vol] 0.70 mg/dL Normal 0.55-1.02 [facility] Comment on above: Performed By: #### B BRICK PICKER, BMP, HSTROPN ####[facility] [address] [address]Dr. Alis Saha EGFR-AF MOSOTHO >60 Normal >=60 [facility] Comment on above: Performed By: #### B BRICK PICKER, BMP, HSTROPN ####[facility] [address] [address]Dr. Alis Saha EGFR-NON AF MOSOTHO >60 Normal >=60 [facility] Comment on above: Performed By: #### B BRICK PICKER, BMP, HSTROPN ####[facility] [address] [address]Dr. Alis Saha Glucose [Mass/Vol] 119 mg/dL Critically high 74-106 [facility] Comment on above: Performed By: #### B BRICK PICKER, BMP, HSTROPN ####[facility] [address] [address]Dr. Alis Saha Potassium [Moles/Vol] 3.4 mmol/L Critically low 3.5-5.1 [facility] Comment on above: Performed By: #### B BRICK PICKER, BMP, HSTROPN ####[facility] [address] [address]Dr. Alis Saha Sodium [Moles/Vol] 140 mmol/L Normal 136-145 [facility] Comment on above: Performed By: #### B BRICK PICKER, BMP, HSTROPN ####[facility] [address] [address]Dr. Alis Saha Urea nitrogen [Mass/Vol] 14.0 mg/dL Normal 7.0-18.0 [facility] Comment on above: Performed By: #### B BRICK PICKER, BMP, HSTROPN ####[facility] [address] [place], [place] [address]Dr. Alis Saha Urea nitrogen/Creatinine [Mass ratio] 20.0 mg/mg Normal [facility] Comment on above: Performed By: #### B BRICK PICKER, BMP, HSTROPN ####[facility] [address] [place], [place] [address]Dr. Alis Saha TROPONIN, HIGH SENSITIVITYon 06-10-2022 HSTROP 9.9 pg/mL Normal 4.0-51.3 [facility] Comment on above: Result Comment: CUT- OFF POINTS HAVE BEEN ESTABLISHED BASED ON THE FOURTH UNIVERSAL DEFINITIONS OF MYOCARDIAL INFARCTION. THE UPPER REFERENCE LIMIT (URL) OF TROPONIN, DEFINED THE 99TH PERCENTILE OF cTnI DISTRIBUTION IN A REFERENCE POPULATION, HAS BEEN CONFIRMED THE DECISION THRESHOLD FOR IN DIAGNOSIS. Performed By: #### B BRICK PICKER, BMP, HSTROPN ####[facility] [address] [place], [place] [address]Tc. Alis Saha XR CHEST 1 Von 06-10-2022 [...] by: POPPY GREEN Date: 2022-06-09 23:02 Normal [facility] XR LSPINE MIN 4 VIEWSon [...] degenerative changes Electronically authenticated by: JUAN CARLOS BANSAL Date: 2022-02-02 07:17 Normal [facility] XR CSPINE 2_3 VIEWSon 2021 [...] degenerative changes Electronically authenticated by: JUAN CARLOS Nieves: 2021-10-01 07:13 Normal [facility] CBC AUTO DIFFon 09-30-2021 BASO # 0.0 103/ul Normal 0.0-0.1 [facility] Comment on above: Performed By: #### C BC ####[facility] [address] [place], [place] [address]Dr. Alis Saha Basophils/100 WBC (Bld) 0.4 % Normal 0.2-2.0 [facility] Comment on above: Performed By: #### C BC ####[facility] [address] [place], [place] [address]Dr. Alis Saha EO # 0.1 103/ul Normal 0.0-0.7 [facility] Comment on above: Performed By: #### C BC ####[facility] [address] [place], [place] [address]Dr. Alis Saha Eosinophils/100 WBC (Bld) 1.6 % Normal 0.9-7.0 [facility] Comment on above: Performed By: #### C BC ####[facility] [address] [place], [place] [address]Dr. Alis Saha Erythrocyte distribution width (RBC) [Ratio] 15.1 % Critically high 11.0-15.0 [facility] Comment on above: Performed By: #### C BC ####[facility] [address] [place], [place] [address]Dr. Alis Saha Hematocrit (Bld) [Volume fraction] 41.9 % Normal 36.0-48.0 [facility] Comment on above: Performed By: #### C BC ####[facility] [address] [place], [place] [address]Dr. Alis Saha Hemoglobin (Bld) [Mass/Vol] 13.5 g/dL Normal 12.0-16.0 [facility] Comment on above: Performed By: #### C BC ####[facility] [address] [place], [place] [address]Dr. Alis Saha IG # 0.01 10e3/ul Normal 0.00-0.03 [facility] Comment on above: Performed By: #### C BC ####[facility] [address] [id number]. Kavitatrace Saha IG % 0.1 % Normal 0.0-0.5 [facility] Comment on above: Performed By: #### C BC ####[facility] [address] [id number]. Alis Saha LYMPH # 2.3 103/ul Normal 1.2-3.8 [facility] Comment on above: Performed By: #### C BC ####[facility] [address] [id number]. Kavitatrace Saha Lymphocytes/100 WBC (Bld) 27.9 % Normal 20.5-60.0 [facility] Comment on above: Performed By: #### C BC ####[facility] [address] [address]Dr. Alis Saha MANUAL DIFF REQ NO Normal [facility] Comment on above: Performed By: #### C BC ####[facility] [address] [id number]. Alis Saha MCH (RBC) [Entitic mass] 28.8 pg Normal 26.7-34.0 [facility] Comment on above: Performed By: #### C BC ####[facility] [address] [id number]. Alis Saha MCHC (RBC) [Mass/Vol] 32.2 g/dL Normal 29.9-35.2 [facility] Comment on above: Performed By: #### C BC ####[facility] [address] [id number]. Alis Saha MCV (RBC) [Entitic vol] 89.3 fL Normal 81.0-99.0 [facility] Comment on above: Performed By: #### C BC ####[facility] [address] [place], [place] [id number]. Alis Saha MONO # 0.5 103/ul Normal 0.3-0.8 [facility] Comment on above: Performed By: #### C BC ####[facility] [address] [id number]. Alis Saha Monocytes/100 WBC (Bld) 5.6 % Normal 1.7-12.0 [facility] Comment on above: Performed By: #### C BC ####[facility] [address] [id number]. Alis Saha NEUT # 5.3 103/ul Normal 1.4-6.5 [facility] Comment on above: Performed By: #### C BC ####[facility] [address] [id number]. Alis Saha Neutrophils/100 WBC (Bld) 64.4 % Normal 43.0-75.0 [facility] Comment on above: Performed By: #### C BC ####[facility] [address] [address]Dr. Alis Saha Platelet mean volume (Bld) [Entitic vol] 9.5 fL Normal 9.5-13.5 [facility] Comment on above: Performed By: #### C BC ####[facility] [address] [id number]. Alis Saha PLT 316 103/ul Normal 150-450 [facility] Comment on above: Performed By: #### C BC ####[facility] [address] [id number]. Alis Saha RBC 4.69 106/ul Normal 4.20-5.40 [facility] Comment on above: Performed By: #### C BC ####[facility] [address] [id number]. Alis Saha WBC 8.2 103/ul Normal 4.0-11.0 [facility] Comment on above: Performed By: #### C BC ####[facility] [address] [address]Dr. Alis Saha GLYCOHEMOGLOBIN A1Con 2021 ADA RECOMMENDATION SEE BELOW Normal [facility] Comment on above: Result Comment: ADA RECOMMENDED LIMIT 4.0 - 6.0 ADA THERAPEUTIC TARGET < 7.0 ACTION SUGGESTED > 7.0 Performed By: #### A 1C ####[facility] [address] [address]Dr. Alis Saha Glucose [Mass/Vol] 128 mg/dL Normal [facility] Comment on above: Performed By: #### A 1C ####[facility] [address] [id number]. Alis Saha HbA1c (Bld) [Mass fraction] 6.1 % Normal 4.5-6.2 [facility] Comment on above: Performed By: #### A 1C ####[facility] [address] [address]Dr. Alis Saha PROF CHEM 8 (BAS METB)on Anion gap [Moles/Vol] 11.5 mmol/L Normal [facility] Comment on above: Performed By: #### T SANA, BMP #### [facility] Laboratory [address] [address] [address] Alis Saha Calcium [Mass/Vol] 8.7 mg/dL Normal 8.5-10.1 [facility] Comment on above: Performed By: #### T SH, BMP #### [facility] [address] [address] [address] Alis Saha Chloride [Moles/Vol] 104 mmol/L Normal 98-107 [facility] Comment on above: Performed By: #### T SANA, BMP #### [facility] [address] [address] [address] Alis Saha CO2 [Moles/Vol] 25.5 mmol/L Normal 21.0-32.0 [facility] Comment on above: Performed By: #### T SH, BMP #### [facility] [address] [address] [address] Alis Saha Creatinine [Mass/Vol] 0.85 mg/dL Normal 0.55-1.02 [facility] Comment on above: Performed By: #### T SH, BMP #### [facility] [address] [address] [address] Alis Saha EGFR-AF MOSOTHO >60 Normal >=60 [facility] Comment on above: Performed By: #### T SH, BMP #### [facility] [address] [place] [address] Dr. Alis Saha EGFR-NON AF MOSOTHO >60 Normal >=60 [facility] Comment on above: Performed By: #### T SH, BMP #### [facility] [address] [address] [address] Alis Saha Glucose [Mass/Vol] 101 mg/dL Normal 74-106 [facility] Comment on above: Performed By: #### T SH, BMP #### [facility] [address] [address] [address] Alis Saha Potassium [Moles/Vol] 4.0 mmol/L Normal 3.5-5.1 [facility] Comment on above: Performed By: #### T SH, BMP #### [facility] [address] [place] [address] Dr. Alis Saha Sodium [Moles/Vol] 137 mmol/L Normal 136-145 [facility] Comment on above: Performed By: #### T SH, BMP #### [facility] [address] [place] [address] Dr. Alis Saha Urea nitrogen [Mass/Vol] 13.0 mg/dL Normal 7.0-18.0 [facility] Comment on above: Performed By: #### T SH, BMP #### [facility] [address] [place] [address] Dr. Alis Saha Urea nitrogen/Creatinine [Mass ratio] 15.3 mg/mg Normal [facility] Comment on above: Performed By: #### T SH, BMP #### [facility] [address] [address] [address] Alis Saha TSHon 09-30-2021 TSH 1.548 uIU/mL Normal 0.358-3.740 [facility] Comment on above: Performed By: #### T SH, BMP #### [facility] [address] [place] [address] Dr. Alis Saha TSH RANGE SEE BELOW Normal [facility] Comment on above: Result Comment: <0.3 4 UIU/ml HYPERTHYROID 0.34-5.60 UIU/ml EUTHYROID >5.60 UIU/ml HYPOTHYROID Performed By: #### T ANGELO HOOD #### [facility] [address] [address] [address] Alis Saha VC CONSULT FOLLOWUPon 2021 VC CONSULT FOLLOWUP Patient: FELY MATT Exam Date: 07/19/2021 : 1970 Gender:F Ordering : DR JUAN CARLOS BANSAL M.D. Admission #: [id number] Family : Order #: [id number] CLICK HERE TO VIEW EXAM RADIOLOGY REPORT [...] exam and consultation Dictated by: Juan Carlos Bansal MD on 07/19/2021 at 15:06 Approved by: Juan Carlos Bansal MD on 07/19/2021 at 15:16 Normal [facility] VC EXT VENOUS RT LIMITEDon 0 07-19-2021 VC EXT VENOUS RT LIMITED Patient: FELY MATT Exam Date: 07/19/2021 : 1970 Gender:F Ordering : DR JUAN CARLOS BANSAL M.D. Admission #: [id number] Family : Order #: [id number] CLICK HERE TO VIEW EXAM RADIOLOGY REPORT [...] to distal calf. 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 Admission #: [id number] Family : Order #: [id number] CLICK HERE TO VIEW EXAM RADIOLOGY REPORT [...] right great saphenous vein. Dictated by: Vladimir Brand M.D. on 07/14/2021 at 14:47 Approved by: Vladimir Brand M.D. on 07/14/2021 at 14:50 Normal [facility] Vital Signs Date Time Vital Sign Value Performing Clinician Facility 06-11-2024 10:54-0500 Body height 163.83 cm Nando Landon DO Work Phone: [facility] 06-11-2024 10:54-0500 Body mass index (BMI) [Ratio] 42.2 kg/m2 Nando Landon DO Work Phone: [facility] 06-11-2024 10:54-0500 Body weight 113.39 kg Nando Landon DO Work Phone: [facility] 06-11-2024 10:54-0500 Diastolic blood pressure 101 mm[Hg] Nando Landon DO Work Phone: [facility] 06-11-2024 10:54-0500 Heart rate 73 /min Nando Landon DO Work Phone: [facility] 06-11-2024 10:54-0500 Systolic blood pressure 153 mm[Hg] Nando Landon DO Work Phone: [facility] 03-21-2024 08:46-0400 Body height 162.6 cm Hailee SAUCEDO Work Phone: [facility] 03-21-2024 08:46-0400 Body mass index (BMI) [Ratio] 42.23 kg/m2 Hailee SAUCEDO Work Phone: [facility] 03-21-2024 08:46-0400 Body weight 111.58 kg Hailee SAUCEDO Work Phone: [facility] 03-21-2024 08:46-0400 Diastolic blood pressure 84 mm[Hg] Hailee SAUCEDO Work Phone: [facility] 03-21-2024 08:46-0400 Systolic blood pressure 130 mm[Hg] Hailee Deming PA Work Phone: [facility] 03-04-2024 10:12-0400 Body mass index (BMI) [Ratio] 42.05 kg/m2 Nando Landon DO Work Phone: [facility] 03-04-2024 10:12-0400 Body weight 111.13 kg Nando Landon DO Work Phone: [facility] 03-04-2024 10:12-0400 Diastolic blood pressure 94 mm[Hg] Nando Landon DO Work Phone: [facility] 03-04-2024 10:12-0400 Systolic blood pressure 142 mm[Hg] Nando Landon DO Work Phone: [facility] 02-14-2024 15:42-0400 Blood Pressure Location Mikhail NILL [facility] 02-14-2024 15:42-0400 Diastolic blood pressure 78 mm[Hg] Mikhail NILL [facility] 02-14-2024 15:42-0400 Heart rate 76 /min Mikhail NILL [facility] 02-14-2024 15:42-0400 Respiratory rate 16 /min Mikhail NILL [facility] 02-14-2024 15:42-0400 Systolic blood pressure 118 mm[Hg] Mikhail NILL [facility] 02-05-2024 09:40-0400 Body height 162.6 cm Nando Landon DO Work Phone: [facility] 02-05-2024 09:40-0400 Body mass index (BMI) [Ratio] 42.47 kg/m2 Nando Lnadon DO Work Phone: [facility] 02-05-2024 09:40-0400 Body weight 112.22 kg Nando Landon DO Work Phone: [facility] 02-05-2024 09:40-0400 Diastolic blood pressure 70 mm[Hg] Nando Landon DO Work Phone: [facility] 02-05-2024 09:40-0400 Systolic blood pressure 120 mm[Hg] Nando Landon DO Work Phone: [facility] 01-18-2024 11:13-0400 Body height 163.83 cm [facility] 01-18-2024 11:13-0400 Body mass index (BMI) [Ratio] 42 kg/m2 [facility] 01-18-2024 11:13-0400 Body weight 112.94 kg [facility] 01-18-2024 11:13-0400 Diastolic blood pressure 80 mm[Hg] [facility] 01-18-2024 11:13-0400 Heart rate 65 /min [facility] 01-18-2024 11:13-0400 Systolic blood pressure 146 mm[Hg] [facility] 11-03-2023 10:24-0400 Diastolic blood pressure 87 mm[Hg] Bonny Mckenzie MD Work Phone: [facility] 11-03-2023 10:24-0400 Systolic blood pressure 132 mm[Hg] Bonny Mckenzie MD Work Phone: [facility] 11-03-2023 10:04-0400 Body height 162.6 cm Bonny Mckenzie MD Work Phone: [facility] 11-03-2023 10:04-0400 Body mass index (BMI) [Ratio] 43.43 kg/m2 Bonny Mckenzie MD Work Phone: [facility] 11-03-2023 10:04-0400 Body weight 114.76 kg Bonny Mckenzie MD Work Phone: [facility] 11-03-2023 10:04-0400 Heart rate 68 /min Bonny Mckenzie MD Work Phone: [facility] 10-03-2023 09:53-0400 Diastolic blood pressure 106 mm[Hg] Zulema Orzech [facility] 10-03-2023 09:53-0400 Heart rate 73 /min Zulema Orzech [facility] 10-03-2023 09:53-0400 Respiratory rate 19 /min Zulema Orzech [facility] 10-03-2023 09:53-0400 Systolic blood pressure 146 mm[Hg] Zulema Orzech [facility] 08-09-2023 11:52-0400 Body height 163.83 cm [facility] 08-09-2023 11:52-0400 Body mass index (BMI) [Ratio] 41.8 kg/m2 [facility] 08-09-2023 11:52-0400 Body temperature 96.8 [degF] [facility] 08-09-2023 11:52-0400 Body weight 112.09 kg [facility] 08-09-2023 11:52-0400 Diastolic blood pressure 81 mm[Hg] [facility] 08-09-2023 11:52-0400 Heart rate 80 /min [facility] 08-09-2023 11:52-0400 Systolic blood pressure 114 mm[Hg] [facility] 05-31-2023 10:15-0500 Body height 163.83 cm Carrie Talbot Other [facility] 05-31-2023 10:15-0500 Body mass index (BMI) [Ratio] 42.89 kg/m2 Carrie Talbot Other [employer] Other 05-31-2023 10:15-0500 Body weight 115.12 kg Carrie Talbot Other [facility] 05-31-2023 10:15-0500 Diastolic blood pressure 83 mm[Hg] Carrie Talbot Other [facility] 05-31-2023 10:15-0500 Systolic blood pressure 124 mm[Hg] Carrie Talbot Other [facility] 04-20-2023 11:15-0500 Body height 163.83 cm Carrie Talbot Other [facility] [employer] Other 04-20-2023 11:15-0500 Body mass index (BMI) [Ratio] 42.58 kg/m2 Carrie Talbot Other [employer] Other 04-20-2023 11:15-0500 Body weight 114.31 kg Carrie Talbot Other [employer] Other 04-20-2023 11:15-0500 Diastolic blood pressure 88 mm[Hg] Carrie Talbot Other [employer] Other 04-20-2023 11:15-0500 Systolic blood pressure 138 mm[Hg] Carrie Talbot Other [employer] Other 02-21-2023 11:15-0400 Body height 163.83 cm Carrie Talbot Other [employer] Other 02-21-2023 11:15-0400 Body mass index (BMI) [Ratio] 41.91 kg/m2 Carrie Talbot Other [employer] Other 02-21-2023 11:15-0400 Body weight 112.49 kg Carrie Talbot Other [employer] Other 02-21-2023 11:15-0400 Diastolic blood pressure 86 mm[Hg] Carrie Talbot Other [employer] Other 02-21-2023 11:15-0400 Systolic blood pressure 130 mm[Hg] Carrie Talbot Other [facility] [employer] Other 12-02-2022 09:55-0400 Body height 162.56 cm Carrie Talbot Work Phone: [facility] DO Work Phone: 12-02-2022 09:55-0400 Body mass index (BMI) [Ratio] 41.2 kg/m2 Carrie Talbot Work Phone: [facility] DO Work Phone: 12-02-2022 09:55-0400 Body surface area Derived from formula 2.11 m2 Carrie Talbot Work Phone: [facility] 250 DO Work Phone: 12-02-2022 09:55-0400 Body weight 108.86 kg Carrie Talbot Work Phone: [facility] 250 DO Work Phone: 12-02-2022 09:55-0400 Diastolic blood pressure 62 mm[Hg] Carrie Talbot Work Phone: [facility] [facility] DO Work Phone: 12-02-2022 09:55-0400 Heart rate 60 /min Carrie Talbot Work Phone: [facility] [facility] DO Work Phone: 12-02-2022 09:55-0400 Systolic blood pressure 118 mm[Hg] Carrie Talbot Work Phone: [facility] [facility] DO Work Phone: 08-11-2022 13:37-0400 Diastolic blood pressure 86 mm[Hg] Carrie Talbot Work Phone: [facility] [facility] DO Work Phone: 08-11-2022 13:37-0400 Systolic blood pressure 137 mm[Hg] Carrie Talbot Work Phone: [facility] [facility] DO Work Phone: 08-11-2022 13:26-0400 Heart rate 62 /min Carrie Talbot Work Phone: [facility] [facility] DO Work Phone: 08-11-2022 13:24-0400 Diastolic blood pressure 88 mm[Hg] Carrie Talbot Work Phone: [facility] [facility] DO Work Phone: 08-11-2022 13:24-0400 Systolic blood pressure 132 mm[Hg] Carrie Talbot Work Phone: [facility] [facility] DO Work Phone: 08-11-2022 13:23-0400 Body height 162.56 cm Carrie Talbot Work Phone: [facility] [facility] DO Work Phone: 08-11-2022 13:23-0400 Body mass index (BMI) [Ratio] 40.85 kg/m2 Carrie Talbot Work Phone: [facility] [facility] DO Work Phone: 08-11-2022 13:23-0400 Body surface area Derived from formula 2.11 m2 Carrie Talbot Work Phone: [facility] [facility] DO Work Phone: 08-11-2022 13:23-0400 Body weight 107.96 kg Carrie Talbot Work Phone: [facility] [facility] DO Work Phone: 08-11-2022 13:23-0400 Diastolic blood pressure 90 mm[Hg] Carrie Talbot Work Phone: [facility] [facility] DO Work Phone: 08-11-2022 13:23-0400 Systolic blood pressure 140 mm[Hg] Carrie Johnson Antione Work Phone: [facility] [facility] DO Work Phone: Encounters Encounter Date Encounter Type Care Provider Facility Start: 06-11-2024 End: 06-11-2024 ambulatory Nando Landon DO Work Phone: [facility] Work Phone: Start: 06-11-2024 End: 06-11-2024 Patient encounter procedure Nando Landon DO Work Phone: [facility] Phys[facility] Work Phone: Start: 03-21-2024 End: 03-21-2024 Bamboo flowsheet Hailee SAUCEDO Work Phone: [facility] Start: 03-21-2024 End: 03-21-2024 Bamboo flowsheet Hailee SAUCEDO Work Phone: [facility] Start: 03-21-2024 End: 03-21-2024 Postop follow up visit related to original px Hailee SAUCEDO Work Phone: [facility] Comment on above: Encounter for postop erative care Start: 03-21-2024 End: 03-21-2024 ambulatory HAILEE GALEANA Not Available Start: 03-20-2024 End: 03-20-2024 ambulatory Mikhail VENEGAS Facility:[id number] Start: 03-15-2024 End: 03-15-2024 Clinisync Result Encounter Nando Landon DO Work Phone: [facility] Unsolicited Start: 03-15-2024 End: 03-15-2024 Clinisync Result Encounter Nando Landon DO Work Phone: [facility] Unsolicited Start: 03-15-2024 End: 03-15-2024 ambulatory Nando Landon Facility:[facility] Start: 03-15-2024 End: 03-15-2024 Departed Referred Nando Landon DO Work Phone: [facility] Start: 03-15-2024 Non-patient / Non-visit Nando Landon DO Work Phone: [facility] Work Phone: Start: 03-08-2024 End: 03-08-2024 Clinisync Result Encounter [...] 03-04-2024 End: 03-04-2024 Patient encounter procedure Nando Landno DO Work Phone: [facility] Start: 03-04-2024 End: 03-04-2024 Periodic preventive med est patient 18-39 yrs Nando Landon DO Work Phone: [facility] Comment on above: Postmenopausal state ; Well woman exam with routine gynecological exam; Breast cancer screening by mammogram; Preoperative examination; Pelvic pain in female; Endometrial polyp Start: 03-04-2024 End: 03-04-2024 Preprocedural examination done Nando Landon DO Work Phone: [facility] Start: 03-04-2024 End: 03-04-2024 ambulatory NANDO LANDON Not Available Start: 02-14-2024 End: 02-14-2024 ambulatory [facility]RIE ANTIONE [facility] Start: 02-14-2024 End: 02-14-2024 Patient encounter procedure Mikhail VENEGAS [facility] Start: 02-05-2024 End: 02-05-2024 Office outpatient visit 15 minutes Nando Landon DO Work Phone: [facility] Comment on above: Pelvic pain in femal e Start: 02-05-2024 End: 02-05-2024 ambulatory NANDO LANDON Not Available Start: 01-30-2024 End: 01-30-2024 ambulatory Zulema X Orzech Facility:[facility] Start: 01-30-2024 End: 01-30-2024 Patient encounter procedure [facility] Orzech [facility] Start: 01-19-2024 ambulatory Zulema Orzech Facility: [facility] Start: 01-18-2024 End: 01-18-2024 ambulatory [facility] Work Phone: Start: 01-18-2024 End: 01-18-2024 Patient encounter procedure [facility] Work Phone: Start: 01-09-2024 End: 01-09-2024 ambulatory Zulema X Orzech Facility:[facility] Start: 01-09-2024 End: 01-09-2024 Patient encounter procedure [facility]ulema X Orzech [facility] Start: 01-08-2024 End: 01-08-2024 ambulatory NANDO LANDON Not Available Start: 12-06-2023 End: 12-06-2023 ambulatory NANDO LANDON Not Available Start: 11-07-2023 End: 11-07-2023 ambulatory Gemma Blanco Facility:[place] Start: 11-07-2023 End: 11-07-2023 Patient encounter procedure Gemma Christal Blanco [facility] Start: 11-03-2023 End: 11-03-2023 ambulatory [facility] Start: 11-03-2023 End: 11-03-2023 Office outpatient visit 25 minutes Bonny Mckenzie MD Work Phone: [facility] Comment on above: Palpitations (Primar y Dx); Essential hypertension; Shortness of breath; BMI 40.0-44.9, adult (Multi); Current smoker Start: 10-03-2023 End: 10-03-2023 ambulatory Zulema X Orzech Facility: [facility] Start: 10-03-2023 End: 10-03-2023 Patient encounter procedure Zulema X Orzech [facility] Start: 08-10-2023 ambulatory Zulema Orzech Facility: [place] Start: 08-09-2023 End: 08-09-2023 Departed Referred MD Carrie Talbot Work Phone: [facility] [address] Work Phone: Start: 08-09-2023 End: 08-09-2023 ambulatory Carrie Talbot [facility] Work Phone: Start: 08-09-2023 End: 08-09-2023 Patient encounter procedure [facility] Work Phone: Start: 08-03-2023 End: 08-03-2023 ambulatory [facility] Work Phone: Start: 08-03-2023 End: 08-03-2023 Patient encounter procedure [facility] Work Phone: Start: 05-31-2023 End: 05-31-2023 ambulatory Carrie Talbot Other [facility] Other Start: 05-31-2023 Office outpatient vi sit 15 minutes Carrie Talbot [facility] Start: 05-31-2023 End: 05-31-2023 Patient encounter procedure [facility] Work Phone: Start: 05-25-2023 End: 05-25-2023 ambulatory ZOLTAN HENDERSON Not Available Start: 04-24-2023 End: 04-24-2023 ambulatory Carrie Talbot Other [facility] Other Start: 04-24-2023 Telephone encounter Carrie Talbot [facility] Start: 04-20-2023 End: 04-20-2023 ambulatory Carrie Talbot Other [facility] Other Start: 04-20-2023 Office outpatient vi sit 15 minutes Carrie Talbot [facility] Start: 03-28-2023 (Televisit) Televisit Carrie Talbot [facility] Start: 03-28-2023 End: 03-28-2023 ambulatory Carrie Talbot Other [facility] Other Start: 02-21-2023 End: 02-21-2023 ambulatory Carrie Talbot Other [facility] Other Start: 02-21-2023 Office outpatient vi sit 25 minutes Carrie Talbot [facility] Start: 12-02-2022 ambulatory MD CARRIE TALBOT Facility: Start: 12-02-2022 Office outpatient vi sit 15 minutes Carrie Talbot Work Phone: [facility] [facility] DO Work Phone: Start: 08-18-2022 End: 08-18-2022 ambulatory Carrie Talbot Other [facility] Other Start: 08-18-2022 Telephone encounter Carrie Talbot [facility] Start: 08-11-[address] Bonny Mckenzie Facility: Start: 08-11-2022 Office consultation new/estab patient 60 min Carrie Talbot Work Phone: [facility] [facility] DO Work Phone: Start: 08-05-2022 End: 08-05-2022 ambulatory Carrie Talbot Other [facility] Other Start: 08-05-2022 Nursing evaluation o f patient and report Carrie Talbot [facility] Start: 07-04-2022 End: 07-04-2022 ambulatory Carrie Talbot Other [facility] Other Start: 07-04-2022 Telephone encounter Carrie Talbot [facility] Start: 06-27-2022 End: 06-28-[address] CARRIE TALBOT Facility:[facility] Start: 06-22-2022 End: 06-22-2022 ambulatory Carrie Talbot Other [facility] Other Start: 06-22-2022 Telephone encounter Carrie Talbot [facility] Start: 06-14-2022 End: 06-14-2022 ambulatory Carrie Talbot Other [facility] Other Start: 06-14-2022 Telephone encounter Carrie Talbot [facility] Start: 06-12-2022 End: 06-12-2022 ambulatory ELY SANTOS Facility:[facility] Start: 06-09-2022 End: 06-10-[address] JUANPABLO PASTRANA Facility:[facility] Start: 05-22-2022 End: 05-28-[address] CARRIE TALBOT Facility:[facility] Start: 05-10-2022 End: 05-21-[address] CARRIE TALBOT Facility:[facility] Start: 05-05-2022 End: 05-06-[address] VLADIMIR BRAND Facility:[facility] Start: 02-18-2022 End: 02-19-[address] CARRIE TALBOT Facility:[facility] Start: 02-01-2022 End: 02-02-[address] JUAN CARLOS BANSAL Facility:[facility] Start: 10-11-2021 End: 11-27-[address] CARRIE TALBOT Facility:[facility] Start: 09-30-2021 End: 10-01-[address] JUAN CARLOS BANSAL Facility:[facility] Start: 08-28-2021 End: 08-28-2021 ambulatory MG BURNETT Facility:[facility] Start: 07-26-[address] CARRIE TALBOT Facil ity:[facility] Start: 07-19-2021 End: 07-20-[address] JUAN CARLOS BANSAL Facility:[facility] Start: 07-14-2021 End: 07-15-[address] JUAN CARLOS BANSAL Facility:[facility] Procedures Date Procedure Procedure Detail Performing [...] procedure 10/28/2024 10:10 AM EDT Office Visit [facility] [address] [place] [address] Bonny Mckenzie MD [address] [facility] [address] [place] [address] [facility] Start: 04-09-2024 End: 04-09-2024 Patient encounter procedure 04/09/2024 9:30 AM EST Office Visit [facility] [address] [place] [id number] Nando Navarrete DO [address] [place], [place] [id number] [facility] Start: 03-21-2024 End: 03-21-2024 Patient encounter procedure 03/21/2024 8:40 AM EDT Office Visit [facility] [address] [place] [address] Hailee Galeana, [place] [address] [place] [address] Arrived [facility] Comment on above: Arrived Start: 03-04-2024 End: 03-04-2025 DXA Skeletal system Views for bone density DEXA bone density Imaging Routine Postmenopausal state Expected: 03/04/2024 (Approximate), Expires: 03/04/2025 [facility] Comment on above: Expected: 03/04/2024 (Approximate), Expires: 03/04/2025 Start: 03-04-2024 End: 05-04-2025 MG Breast - bilateral Screening Bilateral screening mammogram Imaging Routine Breast cancer screening by mammogram Expected: 03/04/2024, Expires: 05/04/2025 [facility] Work Phone: Comment on above: Expected: 03/04/2024 , Expires: 05/04/2025 Start: 03-04-2024 End: 03-04-2024 Patient encounter procedure [facility] Comment on above: Arrived Start: 01-21-2024 Influenza vaccination Influenz a Vaccine (Season Ended) [facility] Start: 01-18-2024 Patient referral [facility] Work Phone: Start: 08-09-2023 Bacteria identified in Urine by Culture [facility] Start: 08-09-2023 Patient referral [facility] Work Phone: Start: 01-20-2023 COVID-19 Vaccine ( season) COVID-19 Vaccine ( season) [facility] Start: 12-02-2022 FUV, Provider: Bonny Mckenzie, Status: Pen, Time: 9:40 AM FUV, Provider: Bonny Mckenzie, Status: Pen, Time: 9:40 AM -[facility] [facility] DO Work Phone: Start: 2022 Zoster Vaccines (1 o f 2) Zoster Vaccines (1 of 2) [facility] Start: 2012 Screening for malign ant neoplasm of breast Mammogram [facility] Start: 1994 DTaP/Tdap/Td Vaccine s (1 - Tdap) DTaP/Tdap/Td Vaccines (1 - Tdap) [facility] Start: 1993 Screening for malign ant neoplasm of cervix [facility] Start: 1991 Hepatitis B Vaccines (1 of 3 - 19+ 3-dose series) Hepatitis B Vaccines (1 of 3 - 19+ 3-dose series) [facility] Start: 1990 Diabetes mellitus screening Diabetes Screening [facility] Start: 1990 Hepatitis C screening Hepatitis C [facility] Start: 1978 Pneumococcal Vaccine : Pediatrics (0 to 5 Years) and At-Risk Patients (6 to 64 Years) (1 of 2 - PCV) Pneumococcal Vaccine: Pediatrics (0 to 5 Years) and At-Risk Patients (6 to 64 Years) (1 of 2 - PCV) [facility] Start: 1973 MMR Vaccines (1 of 1 - Standard series) MMR Vaccines (1 of 1 - Standard series) [facility] Start: 1972 HIV screening HIV Screening [facility] Start: 1972 Lipid panel Lipid Panel [facility] Start: 1972 Screening for malign ant neoplasm of colon [facility] Start: 1972 Yearly Adult Physical Yearly Adult P hysical [facility] Patient referral [facility] Work Phone: THIN PREP TIS PAP AN D HR HPV DNA THIN PREP TIS PAP AND HR HPV DNA Pathology and Cytology Routine Well woman exam with routine gynecological exam Ordered: 03/04/2024 [facility] Comment on above: Ordered: 03/04/2024 Tissue exam Tissue exam Path ology and Cytology Routine Pelvic pain in female Ordered: 02/05/2024 [facility] [employer] Work Phone: Comment on above: Ordered: 02/05/2024 Payers Date Payer Category Payer Medicaid [employer] [place] [id number] 2021-Present [address] [place] [address] [id number] 2021 Private Health Insurance [facility] MEDICA[facility] [id number] 2021 Unknown 2021 Unknown [id number] 1972 Unknown [id number] 2.16.840.1.636749.3.579.2. 593 1972 Unknown [id number] 2.16.840.1.497022.3.579.2. 593 1972 Unknown [id number] 2..840.1.081381.3.579.2. 593 1972 Unknown [id number] 2.16.840.1.987736.3.579.2. 593 1972 Unknown [id number] 2.16.840.1.749480.3.579.2. 593 1972 Unknown [id number] 2.16.840.1.984332.3.579.2. 593 1972 Unknown [id number] 2.16.840.1.490252.3.579.2. 593 1972 Unknown [id number] 2.16.840.1.484800.3.579.2. 593 1972 Unknown [id number] 2.16.840.1.019163.3.579.2. 593 1972 Unknown [id number] 2.16.840.1.580665.3.579.2. 593 1972 Unknown [id number] 2.16.840.1.161648.3.579.2. 593 1972 Unknown [id number] 2.16.840.1.402355.3.579.2. 593 1972 Unknown [id number] 2.16.840.1.060636.3.579.2. 593 1972 Unknown [id number] 2.16.840.1.597656.3.579.2. 593 1972 Unknown [id number] 2.16.840.1.082853.3.579.2. 356 1972 Unknown [id number] 2.16.840.1.686753.3.579.2. 356 1972 Unknown [id number] 2.16.840.1.833304.3.579.2. 1244 1972 Unknown [id number] 2.16.840.1.930153.3.579.2. 1259 1972 Unknown [id number] 2.16.840.1.388946.3.579.2. 1259 1972 Unknown [id number] 2.16.840.1.417171.3.579.2. 1259 1972 Unknown [id number] 2.16.840.1.483047.3.579.2. 1259 1972 Unknown [id number] 2.16.840.1.308829.3.579.2. 1259 1972 Unknown [id number] 2.16.840.1.211465.3.579.2. 1259 1972 Unknown [id number] 2.16.840.1.058264.3.579.2. 1259 1972 Unknown [id number] 2.16.840.1.842093.3.579.2. 727 1972 Unknown [id number] 2.16.840.1.073181.3.579.2. 727 1972 Unknown [id number] 2.16.840.1.829947.3.579.2. 727 1972 Unknown [id number] 2.16.840.1.905482.3.579.2. 727 1972 Unknown [id number] 2.16.840.1.113409.3.579.2. 727 1972 Unknown [id number] 2.16.840.1.300616.3.579.2. 727 1959 Unknown [id number] Unknown Jasmin Cochran [facility] [id number] Social History Date Type Detail Facility Unknown if ever smoked [facility] Other Start: 08-08-2023 Sex Assigned At F [facility] Start: 08-08-2023 Caffeine use Caffeine use [facility] [facility] DO Work Phone: Comment on above: pop all day; 5-10 cigarettes jessi y; Start: 1970 Sex Assigned At Female F [facility] Start: 10-03-2023 End: 01-30-2024 Tobacco smoking status Heavy tobacco smoker (finding) [facility] Start: 11-03-2023 Tobacco smoking stat us NHIS Smokes tobacco daily [facility] Work Phone: History of tobacco use Cigarette Smoker U [facility] Work Phone: Start: 11-03-2023 Tobacco use and exposure User of smokeless tobacco [facility] Work Phone: Start: 11-03-2023 Alcoholic beverage intake Lifetime non-drinker (finding) [facility] Work Phone: Start: 11-03-2023 Tobacco Comment vape [facility] Work Phone: Start: 1970 Sex assigned at Not on file [facility] Work Phone: Start: 10-24-2023 End: 11-03-2023 Exposure to SARS-CoV-2 (event) Not sure [facility] Start: 02-14-2024 Tobacco smoking status Light t obacco smoker (finding) [facility] Start: 05-25-2023 Tobacco smoking stat us NHIS Tobacco smoking consumption unknown [facility] Start: 06-11-2024 Sex Female (finding) [facility] Functional Status Date Assessment Result Facility 02-14-2024 Functional Status N/A [facility] 10-03-2023 Functional Status N/A [facility] Clinical Notes 09-30-2021 to 03-21-2024 LEWIS Root - 03/21/2024 8:40 AM Juan Roblero - 03/04/2024 10:00 AM Rashad Reyes LPN - 02/05/2024 9:30 AM EDT Note Date & Type Note Facility 03-21-2024 History of Present illness Narrative Reason for Appointment: Patient ID: Fely Matt is a 53 y.o. female who presents for Post-op Visit Patient presents today for 1 Week Post Op Follow Up appointment. MEDICATIONS Current Outpatient Medications Medication Instructions famotidine [...] Past Surgical History: Procedure Laterality Date CHOLECYSTECTOMY HYSTEROSCOPY W/ POLYPECTOMY 03/15/2024 REVIEW OF SYSTEMS Review of Systems: Review of Systems Constitutional: Negative. HENT: Negative. Eyes: Negative. Respiratory: Negative. Cardiovascular: Negative. Gastrointestinal: Negative. Genitourinary: Negative. Musculoskeletal: Negative. Skin: Negative. Neurological: Negative. All other systems reviewed and are negative. Hematological: Negative. Endocrine: Negative. Allergic/Immunologic: Negative. OBJECTIVE Objective: Physical Exam Constitutional: Appearance: Normal appearance. She is normal weight. HENT: Head: Normocephalic. Cardiovascular: Rate and Rhythm: Normal rate. Pulses: Normal pulses. Pulmonary: Effort: Pulmonary effort is normal. Breath sounds: Normal breath sounds. Abdominal: Palpations: Abdomen is soft. Musculoskeletal: General: Normal range of motion. Neurological: General: No focal deficit present. Mental Status: She is alert and oriented to person, place, and time. Psychiatric: Mood and Affect: Mood normal. Behavior: Behavior normal. Thought Content: Thought content normal. Judgment: Judgment normal. Vitals and nursing note reviewed. Vitals: Estimated body mass index is 42.23 kg/m as calculated from the following: Height as of this encounter: 5' 4 . Weight as of this encounter: 246 lb. BP: 130/84 No LMP recorded. Patient is postmenopausal. ASSESSMENT & PLAN ICD-10-CM 1. Encounter for postoperative care Z48.89 Post Op Follow Up: Patient presents today for a postop follow up after having a D&C Hysteroscopy with cervical polypectomy performed at [facility] with Dr. Navarrete. Pathology results was reviewed with the patient in great detail and all restrictions have been lifted. Follow Up: Patient is to return to the office for annual exam unless needed otherwise. Documented by Evi Mercado on behalf of: LEWIS Root documented in this encounter [facility] 03-04-2024 History of Present illness Narrative Reason for Appointment: Patient ID: Fely Matt is a 53 y.o. female who presents for Well Women Visit and Pre-op Visit Patient presents today for Pre Op/Annual appointmet. Patient is scheduled to undergo D&C Hysteroscopy, Removal of Polyp, possible Myosure on 03/29/[address] Navarrete at [facility]. MEDICATIONS Current Outpatient Medications Medication Instructions famotidine [...] nursing note reviewed. Exam conducted with a associate attorney present. Vitals: Estimated body mass index is [...] reviewed, and patient is to proceed to [facility] OR. Follow Up: Patient is to follow up between 1-2 weeks post operative to assess proper healing and recovery from procedure. Documented by She Reyes LPN on behalf of: Nando Navarrete DO documented in this encounter [facility] 02-14-2024 Note General Surgery Offi ce/Clinic Note Chief Complaint consultation for rectal bleeding HPI Staff 53 year old female presents on consultation from Dr. [place] for rectal bleeding. Reports 2 day episode of blood in stool with abdominal cramping. Reports bright red blood on toilet tissue and in toilet water as well. Reports this has been a chronic intermittent issue since early . Denies rectal pain. Reports rare nausea, denies vomiting. Denies bowel changes. Patient had previous colonoscopy in early . Previous colonoscopy report not available at this time. History of Present Illness 53 yo female with h/o CAD, htn, class 3 obesity, GERD, MEMO, nephrolithiasis, referred for rectal bleeding. 2 day episode of red blood in stool, toilet bowel and wiping; some associated abd cramping; no N/V; frequent bowel changes/problems her whole life; abdominal operations significant for cholecystectomy; last colonoscopy over 30 years ago; no asa or NSAID use; smokes daily; no fmhx of GI malignancy or IBD. Review of Systems PHQ Score Initial Depression Screen Score: 0 SCORE ROS - Provider Constitutional: no fever, no sweats, no weight loss. Eyes: yes glasses, no blurred vision, no visual loss. ENMT: no dentures, no hoarseness, no swallowing difficulties, no hearing loss, no ear infection(s), no nose bleeds. Cardiovascular: normal blood pressure, no chest pain, regular heartbeat, no heart murmur. Respiratory: no shortness of breath, no cough, no asthma, no wheezing. Gastrointestinal: no nausea, no vomiting, no diarrhea, no constipation, yes blood in stool, no change in bowel habits, yes abdominal pain, no hepatitis. Genitourinary: no kidney stones, no urine infection, no dysuria. Musculoskeletal: no pain, no weakness. Skin: no changing moles, no rash, no skin lumps. Neurologic: no seizures, no epilepsy, no headache. Psychiatric: no emotional or psychiatric problem. Heme/Lymph: no bleeding problems, no anemia, no blood clots, no transfusions. Allergy/Immunologic: no swollen lymph nodes/glands, no IV drug abuse. Other: Additional ROS info: Except as noted in the above Review of Systems and in the History of Present Illness, all other systems have been reviewed and are negative or noncontributory. Physical Exam Vitals & Measurements HR: 76(Peripheral) RR: 16 BP: 118/78 HT: 64 in HT: 163 cm WT: 112.8 kg WT: 248.16 lb BMI: 42.46 HEENT: normal conjunctiva, sclera clear, no scleral icterus, EOM intact, PERRLA, oral mucosa moist without lesions. Neck: trachea midline, no mass, symmetric, no thyromegaly or nodules, no adenopathy Respiratory: lungs CTA, respirations non labored. Cardiovascular: regular rate and rhythm, no murmur, no pedal edema or varicosities. Gastrointestinal: obese, soft, non distended, mild tenderness, diffuse, no peritoneal signs no masses, no palpable hernias, diastasis recti no, no hepatosplenomegaly; normal bs Lymphatic: no cervical adenopathy, no supraclavicular adenopathy. Musculoskeletal: normal gait, digits and nails without infection, nodes, cyanosis, clubbing. Skin: no rashes, no lesions, no ulcers, no subcutaneous nodules, induration. Psychiatric/Neuro: oriented to time, place, person, judgement normal, affect appropriate for age, insight intact, no focal deficits. Tests: review of old records completed , Discussed surgical options, risks, and possible complications with patient. Assessment/Plan 1. Rectal bleeding (K62.5: Hemorrhage of anus and rectum) plan colonoscopy under anesthesia for further evaluation, informed consent obtained. 2. Abdominal cramping (R10.9: Unspecified abdominal pain) see # 1 Follow-up No qualifying data available Problem List/Past Medical History Ongoing Abdominal cramping Adrenal adenoma ASHD (arteriosclerotic heart disease) BMI 40.0-44.9, adult Class 3 obesity Dysuria Essential hypertension GERD without esophagitis Gross hematuria Kidney stones Lesion of cervix OAB (overactive bladder) Obstructive sleep apnea Rectal bleeding Smoker Stress incontinence Historical No qualifying data Procedure/Surgical History Cystoscopy (11/07/2023), Cholecystectomy, Colonoscopy, Hysteroscopy, Stripping of vein. Medications metoprolol 25 mg ER Tab, 25 mg= 1 tab(s), Oral, Daily Pepcid AC, 20 mg, Oral, Daily spironolactone 25 mg Tab, 25 mg= 1 tab(s), Oral, Daily valsartan 40 mg Tab, 40 mg= 1 tab(s), Oral, BID Allergies Cipro (Hives) Nyquil Cold Medicine (Unknown) codeine (Hives) Social History Alcohol - Denies Alcohol Use, 10/03/2023 Substance Abuse - Denies Substance Abuse, 02/14/2024 Tobacco 4 or less cigarettes(less than 1/4 pack)/day in last 30 days Tobacco Use:. Current vaping or e-cigarette use Smokeless Tobacco Use:. Cigarettes, Vaping, 0.25 per day. Started age 15.0 Years. Yes, 02/14/2024 Family History Alcoholism: Brother. Cancer: Mother. Diabetes mellitus type 2: Mother. Heart disease: Mother. Hypertension: Moth (more content not included)... [facility] Comment on above: Result Comment: Elec tronically Signed By: Mikhail VENEGAS MD\Date and Time Signed: 02/14/24 16:06 EDT 02-05-2024 History of Present illness Narrative Reason for Appointment: Patient ID: Fely Matt is a 53 y.o. female who presents for Endometrial biopsy Patient presents today for Acute Visit. and Consult appointment. MEDICATIONS Current Outpatient Medications Medication Instructions aspirin 325 mg, Oral, Daily RT famotidine (PEPCID) 20 mg, Oral, Daily metoprolol [...] SYSTEMS Review of Systems: Review of Systems Genitourinary: Positive for pelvic pain, vaginal bleeding and vaginal pain. All other systems reviewed and are negative. OBJECTIVE Objective: Physical Exam Constitutional: Appearance: Normal appearance. She is well-developed. Genitourinary: Vulva normal. Cervical polyp present. Cardiovascular: Rate and Rhythm: Normal rate and [...] nursing note reviewed. Exam conducted with a associate attorney present. Vitals: Estimated body mass index is 42.47 kg/m as calculated from the following: Height as of this encounter: 5' 4 . Weight as of this encounter: 247 lb 6.4 oz. BP: 120/70 No LMP recorded. Patient is postmenopausal. ASSESSMENT & PLAN ICD-10-CM 1. Pelvic pain in female R10.2 Tissue exam CANCELED: POCT , urine manually resulted Patient presented today for endometrial biopsy and procedure was not performed due to cervical mass. Informed patient that D&C would be needed prior to hysterectomy as she has a cervical mass visible on pelvic exam. Informed patient that plan of care has changed and that space scheduler would be in to setup D&C appointment. PVU Documented by She Reyes LPN on behalf of: Nando Navarrete DO documented in this encounter [facility] 01-30-2024 Hospital Discharge instructions Patient Education 01/30/2024 [...] hormones. Follow these instructions at home: Take cnxz-fzg-hewzzez and prescription medicines only as told by [...] provider. Document Revised: 01/05/2021 Document Reviewed: 01/05/2021 [employer] Patient Education 2023 [employer]. 01/30/2024 10:50:38 Steps to Quit Smoking Steps [...] require a prescription. You can also purchase djhq-nct-dgakhtc medicines. Medicines may have nicotine in them [...] and encouragement. Call telephone quitlines, such as 8-436-PGNP-NOW, reach out to support groups, or work [...] provider. Document Revised: 04/29/2022 Document Reviewed: 04/29/2022 [employer] Patient Education 2023 [employer] 01/30/2024 10:50:36 Overactive Bladder, Adult Overactive [...] your health care provider. General instructions Take lhsd-xzv-rsktjle and prescription medicines only as told by [...] provider. Document Revised: 01/25/2021 Document Reviewed: 01/25/2021 [employer] Patient Education 2023 [employer] [employer] 01/30/2024 10:50:34 Hematuria, Adult Hematuria, Adult Hematuria [...] Follow these instructions at home: Medicines Take jzkj-hsy-xibxoot and prescription medicines only as told by [...] or the blood stops without treatment. Take klja-hev-iwuhnnw and prescription medicines only as told by your health care provider. Drink enough fluid to keep your urine pale yellow. This information is not intended to replace advice given to you by your health care provider. Make sure you discuss any questions you have with your health care provider. Document Revised: 01/06/2021 Document Reviewed: 01/06/2021 [employer] Patient Education 2023 [employer] 01/30/2024 10:50:34 Dietary Guidelines to Help Prevent [...] include: ?8 oz (237 mL) of milk, gchhejn-qbdoldsotsrb-xegje milk, and calcium-fortifiedfruit juice. Calcium-fortified means that [...] ?Spinach (cooked), rhubarb, beets, sweet potatoes, and Slovak chard. ?Peanuts. ?Potato chips, stateless fries, and baked potatoes with skin on. ?Nuts and nut products. ?Chocolate. If you regularly take a diuretic medicine, make sure to eat at least 1 or 2 servings of fruits or vegetables that are high in potassium each day. These include: ?Avocado. ?Banana. ?[place], prune, carrot, or tomato juice. ?Baked potato. [...] magnesium, fish oil, or vitamin B6. Take qrwg-gfd-ssweulw and prescription medicines only as told by [...] Casseroles. Pizza. Lasagna. Frozen meals. Potato chips. Portuguese fries. The items listed above may not [...] provider. Document Revised: 08/18/2022 Document Reviewed: 08/18/2022 [employer] Patient Education 2023 [employer] Follow Up Care 01/08/2024 16:41:10 With:JOHNNA Joya APRN, GYPSY Rodriguez, URL Address: When: Unknown Comments:3-4 mos [facility] 01-30-2024 Note Patient Education Nephrology Dietary [...] ? 8 oz (237 mL) of milk, jrtewan-tpiicfwutafm-rehab milk, and calcium-fortifiedfruit juice. Calcium-fortified means that [...] Spinach (cooked), rhubarb, beets, sweet potatoes, and Slovak chard. ? Peanuts. ? Potato chips, stateless fries, and baked potatoes with skin on. ? Nuts and nut products. ? Chocolate. ? If you regularly take a diuretic medicine, make sure to eat at least 1 or 2 servings of fruits or vegetables that are high in potassium each day. These include: ? Avocado. ? Banana. ? [place], prune, carrot, or tomato juice. ? Baked [...] fish oil, or vitamin B6. ? Take yrsl-xby-dpqhdwt and prescription medicines only as told by your health care provider. These include suppleme (more content not included)... [facility] 11-07-2023 Evaluation + Plan note Extrac galileo from: Title:[facility] Note Author:Gemma Blanco MD . Date:11/07/23 Impression and Plan Assessment and Plan: Diagnosis: Adrenal adenoma (VHJ17-CV D35.00, Working, Medical), Gross hematuria (ADQ09-CC R31.0, Discharge, Medical), OAB (overactive bladder) (UCI93-IP N32.81, Discharge, Medical), TEAGAN (stress urinary incontinence, female) (LYH30-AG N39.3, Working, Medical). 53 year old female [...] AM Scheduled Provider:JOHNNA Joya APRN, [place] [facility] Location:[facility] Appointment Type:URO Office Visit Diagnostic Tests Pending * Urine Cytology ([facility]) 11/07/23 [facility]06-18-2024 Hospital Discharge instructions Patient Education 11/07/2023 [...] With:Gemma Blanco Address:Unknown When: Unknown [facility]06-18-2024 Note [id number] [facility] 11-07-2023 NoteCystoscopy ? Voiding after [...] if you have a fever over 100 degrees.[facility] 11-03-2023 Instructions* Patient Instructions* Sharda [...] time of your visit. documented in this [facility] Work Phone: [phone] NoteChief Complaint referral HPI Staff Referral for dysuria, left flank pain and hematuria by Dr. Talbot. Pt was seen in [facility] ED 08/11/23 for urinary frequency and [...] with voice recognition artificial intelligence software, specifically [employer], [employer] and or [employer]. Substitutions may have occurred due to the [...] work, dexamethasone testing. 3. Dysuria (R30.0: Dysuria) [facility] ER 08/11/2023-urinary frequency, low back pain [...] fluid intake so jah (more content not included)...[facility]:Result Comment: Electronically Signed By: JOHNNA Joya APRN, [place] [facility]\.br\Date and Time Signed: 10/06/23 12:54 [id number] Evaluation + Plan note Diagnostic Tests Pending * Cortisol 10/03/23 * Lab Miscellaneous-LC 10/03/23 * Lab Miscellaneous-LC 10/03/23 [facility] 01-10-2024 Evaluation note* Encounter Date Diagnosis Assessment Notes Treatment Notes Treatment Clinical Notes May, Pain, joint, knee, left (ICD-10 - M25.562) Pt declines PT at this time. Will attempt MRI. She declines Ortho referral at this time as well. MRI order sent to [facility]. work note given for restrictions as she is unable to climb a lot of stairs due to pain. May, Uncontrolled hypertension (ICD-10 - I10) Reviewed labs w pt. No hypokalemia or other electrolyte abnormalities noted in Apr. [facility] Other 12-04-2023 Evaluation note* Encounter Date Diagnosis Assessment Notes Treatment Notes Treatment Clinical Notes Apr, Essential hypertension (ICD-10 - I10) [facility] Other 11-30-2023 Evaluation note* Encounter Date Diagnosis Assessment Notes Treatment Notes Treatment Clinical Notes Mar, Radicular syndrome of left leg (ICD-10 - M54.10) Agrees to imaging to r/o DDD or lumbar fracture. Mar, Leg pain, left (ICD-10 - M79.605) Discussed concern for DVT. US scheduled for today. [facility] Other 11-07-2023 Evaluation note* Encounter Date Diagnosis [...] verbalized understanding and agreement with treatment plan. [facility] Other 10-03-2023 Evaluation note* Encounter Date Diagnosis [...] Advised she limit NSAIDs and added omeprazole [facility] Other 03-30-2023 Evaluation note* Encounter Date Diagnosis Assessment Notes Treatment Notes Treatment Clinical Notes Jul, Uncontrolled hypertension (ICD-10 - I10) [facility] Other 03-17-2023 Evaluation note* Encounter Date Diagnosis Assessment Notes Treatment Notes Treatment Clinical Notes Jul, Dysuria (ICD-10 - R30.0) [facility] Other 12-16-2022 NotePROCEDURE: XR ANKLE LT MIN [...] degenerative joint disease. Electronically authenticated by: VLADIMIR BRAND Date: 2022-05-06 07:13[facility]12-16-2022 NotePROCEDURE: XR ANKLE LT MIN 3 [...] degenerative joint disease. Electronically authenticated by: VLADIMIR BRAND Date: 2022-05-06 07:13[facility]05-12-2022 NotePROCEDURE: XR ELBOW LT MIN 3 VIEWS HISTORY: Pain of left elbow joint , acute; limited range of motion COMPARISON: None. FINDINGS: BONES:No fracture, acute abnormality, or significant arthropathy. SOFT TISSUES:No visible soft tissue swelling. EFFUSION:None visible. OTHER: Negative. IMPRESSION: 1. Normal examination. Electronically authenticated by: VLADIMIR BRAND Date: 2021-09-30 16:50[facility] Narrative - ReportedFELY MATT is being seen for a consultation for blood pressure issues.[facility] [address] DO Work Phone: Evaluation + Plan note Future Appointments Appointment Date:01/30/2024 09:30:00 AM Scheduled Provider:JOHNNA Joya APRN, [place] [facility] Location:[facility] Appointment Type:URO Office Visit [facility] evaluation + Plan note Future Appointments Appointment Date:02/14/2024 03:40:00 PM Scheduled Provider:Mikhail VENEGAS MD Location:[facility] Appointment Type:[place] [id number] [facility] evaluation noteNo InformationNort [employer] Other Evaluabpub noteNo assessment information available [facility] Work Phone: Evaluation note* Diagnosis Onset Date Resolution Status Dysuria acute Hematuria acute Left flank pain acute [facility] Work Phone: Evaluation note* Diagnosis Palpitations- Primary Essential hypertension Unspecified essential hypertension Shortness of breath BMI 40.0-44.9, adult (Multi) Current smoker documented in this encounter [facility] Work Phone: Evaluation note* Diagnosis Onset Date Resolution Status Rectal bleeding acute [facility] Work Phone: Evaluation note* Diagnosis Postmenopausal state Asymptomatic postmenopausal status (age-related) (natural) Well woman exam with routine gynecological exam Routine gynecological examination Breast cancer screening by mammogram Preoperative examination Unspecified pre-operative examination Pelvic pain in female Unspecified symptom associated with female genital organs Endometrial polyp Polyp of corpus uteri documented in this encounter [facility] HealthcareEvaluation note* Diagnosis Encounter for postoperative care documented in this encounter [facility] HealthcareEvaluation note* Diagnosis Pelvic pain in female Unspecified symptom associated with female genital organs documented in this encounter [facility] Healthcare[facility] general Narrative - Reported* Type Description [...] LYSIS OF ADHESIONS 09/2015 Hospitalization History SEE [employer] Other History of Present illness Narrative* [...] to retrieve her recent Holter monitor from [facility] * 3. I suggested a trial of [...] diet * 6. Follow-up in 4 months [facility] [employer] Work Phone: History of Present illness Narrative* [...] diet * 5. Follow-up in 4 months [facility] [employer] DO Work Phone: Hospital course Narrative No data available for this section [facility] Hospital Discharge instructionsAmbulatory Orders* Referral to Urology Time Frame: 08/09/23, Location: None [facility] Work Phone: Hospital Discharge instructions No data available for this section [facility] Hospital Discharge instructionsAmbulatory Orders* Referral to General Surgery Time Frame: 01/18/24, Location: None [facility] Work Phone: Progress note No data available for this section [facility] reason for referral (narrative)* Consultation (Routine) - Authorized Specialty Diagnoses / Procedures Referred By Contac t Referred To Contact Cardiology Diagnoses Essential hypertension Procedures Follow Up In Cardiology Bonny Mckenzie MD [address] [place] [address], [address] [address] Bonny Mckenzie MD [address] [place] [address] 2, [address] [address] Referral ID Status Reason Start Date Expiration Date V isits Requested Visits Authorized [id number] Authorized 11/03/2023 11/02/2024 1 1 [facility] Work Phone: Summary Purpose Family History Unknown [...] Advance Directives No January 12, 2024 2:16pm Advance Directive Response Recorded Date/ Time Advance Directives No January 12, 2024 1:16pm Chief Complaint FELY MATT is being seen for a 4 month follow-up of. Reason for Referral Reason B hands aching, cant make a fist w R hand, chronic pain Diagnosis 1 Dupuytren's contract ure of right hand (M72.0) Referral Organization [facility] Ot[facility] Medical C sam Referring Provider First Name Carrie Referring Provider Last Name Antione Referring Provider Specialty Family Medi cine Referred Organization [facility] pedics Referred Provider Deisi Branch Referred Address [address] [place], [place],[address] Referred Provider Specialty Orthopedic S urgery Referral [...] Bowel Bleeding Reason for Visit Rectal bleeding Chief Complaint Admit Date Unknown March 15, 2024 1 2:43pm swollen eyes June 11, 2024 1 0:52am Additional Source Comments INFORMATION SOURCE (unrecogn ized section and content) DATE CREATED AUTHOR 06/30/2022 [facility] DATE CREATED AUTHOR AUTHOR'S ORGANIZ ATION 12/03/2022 [facility] DATE CREATED AUTHOR AUTHOR'S ORGANIZ ATION 12/03/2022 [employer] DATE CREATED AUTHOR AUTHOR'S ORGANIZ ATION 11/04/2023 [facility] tals Ambulatory DATE CREATED AUTHOR AUTHOR'S ORGANIZ ATION 03/22/2024 [facility] DATE CREATED AUTHOR AUTHOR'S ORGANIZ ATION 03/23/2024 [facility] EPIC DATE CREATED AUTHOR AUTHOR'S ORGANIZ ATION 03/23/[address] [place] [facility] DATE CREATED AUTHOR AUTHOR'S ORGANIZ ATION [facility] REASON FOR VISIT (unrecogniz ed section and content) Reason Comments Follow-up overdue Reason Comments Well Women Visit Pre-op Visit Reason Comments Post-op Visit Reason Comments Endometrial biopsy Care Teams (unrecognized sec tion and content) Team Status: Active Member Role Status Dates Carrie Talbot MD Primary Care Provider Active Team Status: Active Member Role Status Dates Carrie Talbot MD Primary Care Provider Active Start: March 15, 2024 Nando Navarrete DO Attending Provider Active Start : March 15, 2024 Team Status: Inactive Member Role Status Dates Nando Navarrete DO Attending Provider Active Start : March 15, 2024 End: March 15, 2024 Team Status: Inactive Member Role Status Dates Carrie Talbot MD Primary Care Provide r, Attending Provider Active Start: June 11, 2024 End: June 11, 2024 Team Status: Active Member Role Status Dates [...] August 09, 2023 End: August 09, 2023 [place]er Relationship Specialty Start Date End Date Carrie Talbot MD [address] [place] [address] PCP - General 08/11/22 Team Status: Inactive Member Role Status Dates Carrie Talbot MD Primary Care Provide r, Attending Provider Active Start: January 18, 2024 End: January 18, 2024 Slimer Relationship Specialty Start Date End Date Carrie Talbot MD [address] [facility] [place] [address] PCP - General Family Medicine 05/25/23 Slimer Relationship Specialty Start Date End Date Carrie Talbot MD [address] [facility] [place] [address] PCP - General Family Medicine 05/25/23 Slimer Relationship Specialty Start Date End Date Carrie Talbot MD [address] [facility] [place] [address] PCP - General Family Medicine 05/25/23 Slimer Relationship Specialty Start Date End Date Carrie Talbot MD [address] [facility] [id number] PCP - General Family Medicine 05/25/23 Slimer Relationship Specialty Start Date End Date Carrie Talbot MD [address] [facility] [place] [address] PCP - General Family Medicine 05/25/23 Slimer Relationship Specialty Start Date End Date Carrie Talbot MD [address] [facility] [place] [address] PCP - General Family Medicine 05/25/23 Team Status: Active Member Role Status Dates Carrie Talbot MD Primary Care Provider Active Start: March 15, 2024 Nando Navarrete DO Attending Provider Active Start : March 15, 2024 Team Status: Inactive Member Role Status Dates Nando Navarrete DO Attending Provider Active Start : March 15, 2024 End: March 15, 2024 Team Status: Inactive Member Role Status Dates Carrie Talbot MD Primary Care Provide r, Attending Provider Active Start: June 11, 2024 End: June 11, 2024 Goals (unrecognized section and content) Goals [...] BE BASED ON THE PRIMARY CLINICAL RECORDS. [facility] [employer] [facility]. provides no warranty or guarantee of the accuracy or completeness of information in this document.
--- NOTE | 2024-06-12 11:59 | ED.ALLEREA1 ---
HPI - Allergic Reaction General Chief complaint: Allergic Reaction Stated complaint: POSSIBLE ALLERGIC REACTION Time Seen by Provider: 06/12/24 11:45 Source: patient Mode of arrival: walk-in History of Present Illness HPI narrative: Patient presents to ED for evaluation possible allergic reaction. Patient states she used a new soap on Monday or Monday she cannot remember which day. She woke up yesterday with swelling to her eyes and redness and swelling to her face. She said it kind of stings and swanson more than itches. No shortness of breath although she states she feels like her breathing seems tight because she is very anxious. Patient states she went to her doctor yesterday and they did not want to start her on any steroids because they said her blood pressure was too high. She said her blood pressure is high because she is very nervous about what is going on. She took some Benadryl this morning and the swelling has decreased slightly but is still there. No fever no nausea vomiting. She denies any abdominal pain or chest pain. She is alert and oriented. She also states she sleeps with her dog and she washed the dog bed in a different detergent as well so she is not exactly sure what this could be stemming from. She does have a history of high blood pressure and she also has been taking her medication as directed. She does report that it has been running high recently but not as bad as the past couple of days. Related Data Home Medications ?Medication ?Instructions ?Recorded ?Confirmed famotidine 20 mg tablet (Pepcid) 20 mg PO Q12H 03/04/24 06/12/24 metoprolol succinate 25 mg 25 mg PO DAILY 03/04/24 06/12/24 tablet,extended release 24 hr spironolactone 25 mg tablet 25 mg PO DAILY 03/04/24 06/12/24 valsartan 160 mg tablet 160 mg PO DAILY 03/08/24 06/12/24 Previous Rx's ?Medication ?Instructions ?Recorded hydroxyzine pamoate 25 mg capsule 50 mg (2 x 25 mg) PO BID PRN 06/12/24 (Vistaril) anxiety #20 caps methylprednisolone 4 mg tablets in 4 mg PO DAILY #21 ea 06/12/24 a dose pack (Medrol (Caleb)) Allergies Allergy/AdvReac Type Severity Reaction Status Date / Time acetaminophen (From NyQuil) Allergy Severe Unknown Verified 06/12/24 11:45 ciprofloxacin (From Cipro) Allergy Severe Unknown Verified 06/12/24 11:45 dextromethorphan (From Allergy Severe Unknown Verified 06/12/24 11:45 NyQuil) doxylamine (From NyQuil) Allergy Severe Unknown Verified 06/12/24 11:45 pseudoephedrine (From NyQuil) Allergy Severe Unknown Verified 06/12/24 11:45 cefdinir Allergy Unknown Verified 06/12/24 11:45 cefuroxime Allergy Unknown Verified 06/12/24 11:45 codeine Allergy Unknown Verified 06/12/24 11:45 Review of Systems ROS Status of ROS 10 or more systems reviewed and unremarkable except as noted in history and below [facility] Medical History (Updated 06/12/24 @ 13:13 by Adriane Gaffney DO) BAHENA (dyspnea on exertion) ?R06.09 - Other forms of dyspnea (ICD-10) Syncope ?R55 - Syncope and collapse (ICD-10) Dysautonomia ?G90.1 - Familial dysautonomia [[place]eto-Day] (ICD-10) Fatty liver ?K76.0 - Fatty (change of) liver, not elsewhere classified (ICD-10) Adrenal tumor ?D49.7 - Neoplasm of unspecified behavior of endocrine glands and other parts of nervous system (ICD-10) Neck pain ?M54.2 - Cervicalgia (ICD-10) Back pain ?M54.9 - Dorsalgia, unspecified (ICD-10) Fibromyalgia ?M79.7 - Fibromyalgia (ICD-10) Arthritis ?M19.90 - Unspecified osteoarthritis, unspecified site (ICD-10) COVID-19 (2020) ?U07.1 - COVID-19 (ICD-10) Deep vein thrombosis (2020) ?I82.409 - Acute embolism and thrombosis of unspecified deep veins of unspecified lower extremity (ICD-10) Panic attacks ?F41.0 - Panic disorder [episodic paroxysmal anxiety] (ICD-10) Anxiety ?F41.9 - Anxiety disorder, unspecified (ICD-10) Migraine ?G43.909 - Migraine, unspecified, not intractable, without status migrainosus (ICD-10) Extremity edema ?R60.0 - Localized edema (ICD-10) Enlarged thyroid ?E04.9 - Nontoxic goiter, unspecified (ICD-10) Delayed recovery from anesthesia Postmenopausal state ?Z78.0 - Asymptomatic menopausal state (ICD-10) Pelvic pain ?R10.2 - Pelvic and perineal pain (ICD-10) Endometrial polyp ?N84.0 - Polyp of corpus uteri (ICD-10) Stress incontinence ?N39.3 - Stress incontinence (female) (male) (ICD-10) Rectal bleeding ?K62.5 - Hemorrhage of anus and rectum (ICD-10) Sleep apnea ?G47.30 - Sleep apnea, unspecified (ICD-10) Overactive bladder ?N32.81 - Overactive bladder (ICD-10) Lesion of cervix ?N88.9 - Noninflammatory disorder of cervix uteri, unspecified (ICD-10) Kidney stones ?N20.0 - Calculus of kidney (ICD-10) Hematuria ?R31.9 - Hematuria, unspecified (ICD-10) GERD (gastroesophageal reflux disease) ?K21.9 - Gastro-esophageal reflux disease without esophagitis (ICD-10) Hypertension ?I10 - Essential (primary) hypertension (ICD-10) Dysuria ?R30.0 - Dysuria (ICD-10) ASHD (arteriosclerotic heart disease) ?I25.10 - Atherosclerotic heart disease of [place] coronary artery without angina pectoris (ICD-10) Adrenal adenoma ?D35.00 - Benign neoplasm of unspecified adrenal gland (ICD-10) Abdominal cramping ?R10.9 - Unspecified abdominal pain (ICD-10) Surgical History (Updated 03/20/24 @ 07:51 by Janette Hubbard RN) H/O dilation and curettage ?Z98.890 - Other specified postprocedural states (ICD-10) H/O vein stripping ?Z98.890 - Other specified postprocedural states (ICD-10) History of hysteroscopy ?Z98.890 - Other specified postprocedural states (ICD-10) H/O colonoscopy ?Z98.890 - Other specified postprocedural states (ICD-10) History of cholecystectomy ?Z90.49 - Acquired absence of other specified parts of digestive tract (ICD-10) History of cystoscopy ?Z98.890 - Other specified postprocedural states (ICD-10) Family History (Updated 03/08/24 @ 11:39 by Azul Hale NP) Mother Family history of cancer Family history of diabetes mellitus Heart disease Family history of hypertension Father Family history of hypertension Brother Alcoholism Sister Hypothyroidism Other Delayed recovery from anesthesia Family history of CHF (congestive heart failure) Family history of COPD (chronic obstructive pulmonary disease) Family history of myocardial infarction Social History (Updated 03/08/24 @ 11:30 by Azul Hale NP) Within the past year, how often did you have a drink containing alcohol: never Score interpretation: A score less than 3 is consistent with normal alcohol consumption. Smoking status: Current every day smoker What tobacco products do you use: cigarettes Cigarettes per day: 5 Years smoked: 36 Smoking pack-years: 9.00 Do you use any of these nicotine containing products: vaping products Non-prescribed substance use: denies use Previous occupational history: [employer] Highest level of school completed/degree received: high school graduate Little interest or pleasure in doing things: not at all Feeling down, depressed, or hopeless: not at all Exam Narrative Exam Narrative: Time Seen: [] Vital Signs: [Per nurse's notes.] General: [Alert] hypertension Skin: [Warm, dry, erythema and swelling to the face and periorbital edema is present. Head: [Normocephalic, atraumatic.] Neck: [Supple, trachea midline.] Eye: [Pupils are equal, round and reactive to light, extraocular movements are intact, normal conjunctiva.] Ears, nose, mouth and throat: oral mucosa moist. No uvular swelling or posterior pharynx swelling no wheezing no stridor Cardiovascular: [Regular rate and rhythm, no murmur.] Respiratory: [Lungs are clear to auscultation, respirations are non-labored, breath sounds are equal.] Chest wall: [No tenderness, no deformity.] Gastrointestinal: [Soft, nontender, non distended, normal bowel sounds.] MSK: 5 out of 5 muscle strength x 4 extremities no calf pain or edema Psychiatric: [Cooperative, appropriate mood & affect.] Anxious Neurological: [Alert and oriented to person, place, time, and situation, no focal neurological deficit observed.] Constitutional Vital Signs, click to edit/add: Last Vital Signs Temp 98.6 F 06/12/24 11:45 Pulse 96 H 06/12/24 11:45 Resp 18 06/12/24 11:45 BP 180/90 H 06/12/24 11:45 Pulse Ox 99 06/12/24 11:45 O2 Del Method Room Air 06/12/24 11:45 Course Vital Signs Vital signs: Vital Signs Temperature 98.6 F 06/12/24 11:45 Pulse Rate 96 H 06/12/24 11:45 Respiratory Rate 18 06/12/24 11:45 Blood Pressure 180/90 H 06/12/24 11:45 Pulse Oximetry 99 06/12/24 11:45 Oxygen Delivery Method Room Air 06/12/24 11:45 Temperature 98.6 F 06/12/24 11:45 Pulse Rate 96 H 06/12/24 11:45 Respiratory Rate 18 06/12/24 11:45 Blood Pressure 180/90 H 06/12/24 11:45 Pulse Oximetry 99 06/12/24 11:45 Oxygen Delivery Method Room Air 06/12/24 11:45 MDM - Allergic Reaction MDM Narrative Medical decision making narrative: Patient is feeling much better after Vistaril and steroids. Her blood pressure is improved to 180s over 90s. It is still elevated. She does not have any visual changes or chest pain or shortness of breath. No confusion. She said her blood pressure does fluctuate up and down especially when she is sick or not feeling well then it is usually elevated. She does have a blood pressure cuff at home and I told her to document it once or twice a day to keep a log of her blood pressures for her family doctor to review. Continue her current blood pressure medicine. She also states a lot of this is anxiety. She will be given Vistaril for home which will help with the histamine response as well as the anxiety. Start the steroid taper tomorrow. Return to ED if worsening symptoms or any further concerns. Patient is comfortable with care plan for home Differential Diagnosis Differential diagnosis: Likely anaphylaxis, allergic reaction, adverse reaction to drug and other (Anxiety hypertension) Discharge Plan Discharge Chief Complaint: Allergic Reaction Clinical Impression: Allergic reaction Patient Disposition: Home, Self-Care Time of Disposition Decision: 13:13 Condition: Good Mode of Transportation: Private Vehicle Prescriptions / Home Meds: New methylprednisolone [Medrol (Caleb)] 4 mg tablets,dose pack 4 mg PO DAILY Qty: 21 0RF Rx Instructions: medrol dose caleb disp one use as directed hydroxyzine pamoate [Vistaril] 25 mg capsule 50 mg PO BID PRN (Reason: anxiety) Qty: 20 0RF No Action valsartan 160 mg tablet 160 mg PO DAILY metoprolol succinate 25 mg tablet extended release 24 hr 25 mg PO DAILY famotidine [Pepcid] 20 mg tablet 20 mg PO Q12H spironolactone 25 mg tablet 25 mg PO DAILY Print Language: Amharic Instructions: General Allergic Reaction (ED) Referrals: Slime Higgins MD [Primary Care Provider] - 1 week
[2024-06-12] MEDS: HYDROXYZINE PAMOATE 25 MG CAPSULE 50 MG PO (12:07)
[2024-06-12] MEDS: DEXAMETHASONE SOD PHOS 10 MG/ML VIAL PO (12:10)
== END 2024-06-12 13:30 | disposition home or self-care (01) ==
PROVIDERS: Emergency Provider Emergency Medicine; PCP Family Medicine
DX: T78.40XA Allergy, unspecified, initial encounter (principal); X58.XXXA Exposure to other specified factors, initial encounter; I10 Essential (primary) hypertension; Z90.49 Acquired absence of other specified parts of digestive tract; F17.210 Nicotine dependence, cigarettes, uncomplicated; F17.290 Nicotine dependence, other tobacco product, uncomplicated
CPT/HCPCS: 99283; J1100; Q0177

== ENCOUNTER 2024-12-19 16:38 | Outpatient (OUT) | payer OTHER, SELFPAY ==
[2024-12-19 17:02] LABS: Hematocrit 44.8 % (36.0-48.0); Hemoglobin 14.6 g/dL (12.0-16.0); Immature Granulocytes Abs Auto 0.01 10^3/uL (0.00-0.03); Immature Granulocytes Pct Auto 0.1 % (0.0-0.5); Lymphocytes Absolute Auto 3.5 10^3/uL (1.2-3.8); Mean Corpuscular HGB Conc 32.6 g/dL (29.9-35.2); Mean Corpuscular Hemoglobin 29.5 pg (26.7-34.0); Mean Corpuscular Volume 90.5 fL (81.0-99.0); Platelet Count 270 10^3/uL (150-450); Red Blood Count 4.95 10^6/uL (4.20-5.40); White Blood Count 7.1 10^3/uL (4.0-11.0)
[2024-12-19 17:04] LABS: Glucose Urine UA NEGATIVE (NEGATIVE)
[2024-12-19 17:41] LABS: Anion Gap 12.7; Blood Urea Nitrogen 14.0 mg/dL (7.0-18.0); Calcium 9.3 mg/dL (8.5-10.1); Carbon Dioxide 28.2 mmol/L (21.0-32.0); Chloride 103 mmol/L (98-107); Estimated GFR (African America >60 (>=60 mL/min/1.73m^2); Estimated GFR (Non-African Ame >60 (>=60 mL/min/1.73m^2); Glucose 83 mg/dL (74-106); Potassium 3.9 mmol/L (3.5-5.1); Sodium 140 mmol/L (136-145); TSH W/ REFLEX FT4 1.444 uIU/mL (0.358-3.740)
== END 2024-12-19 16:39 | disposition home or self-care (01) ==
PROVIDERS: PCP Family Medicine; Visit Provider Family Medicine
DX: R73.09 Other abnormal glucose (principal); R53.83 Other fatigue; I10 Essential (primary) hypertension; R31.1 Benign essential microscopic hematuria
CPT/HCPCS: 36415; 80048; 81003; 83036; 84443; 85025